=== PATIENT | male | born 1950 | race Caucasian/White ===

== ENCOUNTER 2016-08-03 08:30 | Inpatient (IN) | payer MEDICARE, MEDICAID ==
[2016-08-03 08:46] VITALS: BP 174/90
[2016-08-03] MEDS ORDERED: Sodium Chloride 0.9% 1,000 ML IV ONE (08:47)
[2016-08-03] MEDS ORDERED: HYDROmorphone 1 mg/mL 1mL Syr IVP STA ×2 (08:47→13:57)
[2016-08-03] MEDS ORDERED: HYDROmorphone 1 mg/mL 1mL Syr ONE ×2 (08:56→14:01)
--- NOTE | 2016-08-03 08:56 | ED Physician Chart ---
Chief Complaint/HPI - Patient Information Date Seen:: 08/03/16 Time Seen:: 08:49 Chief Complaint:: fall History of Present Illness:: pt from [facility]. pt of Dr Rueda says he felt dizzy today then fell on his left side. abraided left elbow and l side of scalp. recalls no cp nor palpitations. is worried he may have reinjured his left hip which was replaced in past. asks for pain med...says he is on norco chronically for his hip but "its not strong enough anymore anyways" denies cp or abd p nor acute back injury. no recent illness. no sudden neuro change/defecit. Allergies:: Allergies Allergy/AdvReac Type Severity Reaction Status Date / Time No Known Allergies Allergy Verified 05/18/16 23:28 Vitals:: Vital Signs - 8 hr 08/03/16 08:43 BP 174/90 Historian:: Patient Review:: Transfer documents Reviewed Review of Systems - Review of Systems General/Constitutional: No fever, No chills, No weight loss, No weakness, No diaphoresis, No edema, No loss of appetite Skin: No skin lesions, No rash, No bruising Head: Headache, No light-headedness Eyes: No loss of vision, No pain, No diplopia ENT: No earache, No nasal drainage, No sore throat, No tinnitus Neck: No neck pain, No swelling, No thyromegaly, No stiffness, No mass noted Cardio Vascular: No chest pain, No palpitations, No PND, No orthopnea, No edema Pulmonary: No SOB, No cough, No sputum, No wheezing GI: No nausea, No vomiting, No diarrhea, No pain, No melena, No hematochezia, No constipation, No hematemesis G/U: No dysuria, No frequency, No hematuria Musculoskeletal: Bone or joint pain, No back pain, No muscle pain Endocrine: No polyuria, No polydipsia Psychiatric: No prior psych history, No depression, No anxiety, No suicidal ideation Hematopoietic: No bruising, No lymphadenopathy Allergic/Immuno: No urticaria, No angioedema Neurological: No syncope, No focal symptoms, No weakness, No paresthesia, No headache, No seizure, No dizziness, No confusion, No vertigo Past Medical History - Past Medical History Past Medical History: HTN (pt says he did take his bp med today), Asthma/COPD, PUD/GERD, Arthritis (osteoporosis), Other (hep c, esrd, anemia) Social History: Care Facility Medication: Reviewed Family Medical History - Family Member Mother History Unknown: Yes Ethnicity: Non- Living Status: Hx Family Cancer: Yes (breast cancer) Hx Family Coronary Artery Disease: Yes Hx Family Congestive Heart Failure: Yes Hx Family Hypertension: Yes Hx Family Stroke: No Hx Family Diabetes: No Hx Family Seizures: No Hx Family Dementia: No Hx Family AIDS: No Hx Family HIV: No Hx Family COPD: No Hx Family Hepatitis: No Hx Family Psychiatric Problems: Yes (Schizophenic) Hx Family Tuberculosis: No unknown History Unknown: Yes Ethnicity: Living Status: Hx Family Cancer: No Hx Family Coronary Artery Disease: No Hx Family Congestive Heart Failure: No Hx Family Hypertension: Yes Hx Family Stroke: No Hx Family Diabetes: No Hx Family Seizures: No Hx Family Dementia: No Hx Family AIDS: No Hx Family HIV: No Hx Family COPD: No Hx Family Hepatitis: No Hx Family Psychiatric Problems: No Hx Family Tuberculosis: No Physical Exam - Physical Examination General/Constitutional: Awake, Well-developed, well-nourished, Alert, No distress, GCS 15, Non-toxic appearing, Ambulatory Other Gen/Cons comments:: neck nontndr, ok rom without pain. abrasion at left scalp. cn 2-12 wnl. abrasion left elbow w good rom. no focal severely tndr spot. no effusion. distal nv ok. left hip tender laterally. distal n/v ok. Head: Atraumatic Eyes: Lids, conjuctiva normal, PERRL, EOMI Skin: Nl inspection, No rash, No skin lesions, No ecchymosis, Well hydrated, No lymphadenopathy ENMT: External ears, nose nl, Nasal exam nl, Lips, teeth, gums nl Neck: Nontender, Full ROM w/o pain, No JVD, No nuchal rigidity, No bruit, No mass, No stridor Respiratory: Nl effort/Exclusion, Clear to Auscultation, No Wheeze/Rhonchi/Rales Cardio Vascular: RRR, No murmur, gallop, rubs, NL S1 S2 GI: No tenderness/rebounding/guarding, No organomegaly, No hernia, Normal BS's, Nondistended, No mass/bruits, No McBurney tenderness : No CVA tenderness Extremities: No tenderness or effusion, Full ROM, normal strength in all extremities, No edema, Normal digits & nails Neuro/Psych: Alert/oriented, DTR's symmetric, Normal sensory exam, Normal motor strength, Judgement/insight normal, Mood normal, Normal gait, No focal deficits Misc: normal gait, Normal back, No paraspinal tenderness Labs/Radiology/EKG Results - Lab Results Results: Laboratory Tests 08/03/16 08/03/16 08/03/16 09:19 09:19 09:19 WBC 3.0 L D RBC 4.03 Hgb 12.4 L Hct 36.3 L MCV 90.2 MCH 30.9 MCHC Differential 34.2 RDW 13.4 Plt Count 43 L MPV 7.7 Neutrophils (Manual) 61 Lymphocytes 26 Monocytes 10 Eosinophils 2 Atypical Lymphocytes 1 Platelet Estimate DECREASED PLATELETS Platelet Morphology NORMAL RBC Morph Micro Appear NORMAL PT 11.9 H INR 1.19 PTT (Actin FS) 31.6 Sodium 123 L Potassium 4.1 Chloride 95 L Carbon Dioxide 25.6 Anion Gap 6.5 L BUN 9 Creatinine 0.6 L Est GFR ( Amer) > 60.0 Est GFR (Non-Af Amer) > 60.0 BUN/Creatinine Ratio 15.0 Glucose 143 H Calcium 9.0 Total Bilirubin 0.8 AST 87 H ALT 59 H Alkaline Phosphatase 148 H Ammonia Creatine Kinase 75 Troponin I Total Protein 6.7 Albumin 3.4 L Globulin 3.3 Albumin/Globulin Ratio 1.0 08/03/16 08/03/16 09:19 09:19 WBC RBC Hgb Hct MCV MCH MCHC Differential RDW Plt Count MPV Neutrophils (Manual) Lymphocytes Monocytes Eosinophils Atypical Lymphocytes Platelet Estimate Platelet Morphology RBC Morph Micro Appear PT INR PTT (Actin FS) Sodium Potassium Chloride Carbon Dioxide Anion Gap BUN Creatinine Est GFR ( Amer) Est GFR (Non-Af Amer) BUN/Creatinine Ratio Glucose Calcium Total Bilirubin AST ALT Alkaline Phosphatase Ammonia 48 Creatine Kinase Troponin I 0.01 Total Protein Albumin Globulin Albumin/Globulin Ratio - Radiology Results Results: ct head - no acute bleed. age indeterminate nasal and rt zygoma arch fxs l elbow xray- old hardware inplace. no acute fx l hip- old wire broken w prior seen greater trochanteric avulsion. no new injury. - EKG Interpretations EKG Time:: 09:30 Rhythm: nsr [place]: 61 Rate: 83 Comments:: wnl ED Septic Shock - . Is Septic Shock (SBP<90, OR Lactate>4 mmol\\L) present?: No - <6hrs of presentation: Vital Signs: Vital Signs - 8 hr 08/03/16 08:43 BP 174/90 Reassessment (Disposition) - Reassessment Reassessment:: case dw Dr Rueda will admit (2;38p) Reassessment Condition:: Improved - Diagnosis Diagnosis:: 1 pain s/p fall 2 age indeterminate nasal and rt zygoma arch fxs 3 left hip pain - old wire broken w prior seen greater trochanteric avulsion. no new injury. 4 HTN poorly txd 5 severe low platelets - Patient Disposition Admitted to:: Telemetry Condition at Disposition:: Improved
[2016-08-03 09:31] LABS: HEMATOCRIT 36.3 % (39.0-49.0); HEMOGLOBIN 12.4 gm/dL (12.6-17.4); MEAN CELL VOLUME 90.2 fl (80-99); MEAN CORPUSCULAR HEMOGLOBIN 30.9 pg (27.0-31.0); MEAN CORPUSCULAR HGB CONC 34.2 pg (28.0-36.0); MEAN PLATELET VOLUME 7.7 fl; PLATELET COUNT 43 Th/cmm (150-400); RED BLOOD COUNT 4.03 Mil/cmm (3.80-5.80); RED CELL DISTRIBUTION WIDTH 13.4 % (11.5-20.0)
[2016-08-03 09:38] LABS: INR 1.19 (0.5-1.4); PROTHROMBIN TIME (TEST) 11.9 SECONDS (9.5-11.5)
[2016-08-03 09:41] LABS: ALKALINE PHOSPHATASE 148 U/L (34-104); ANION GAP 6.5 (7.0-16.0); BILIRUBIN,TOTAL 0.8 mg/dL (0.3-1.0); BUN - UREA NITROGEN 9 mg/dL (7-25); CARBON DIOXIDE 25.6 mEq/L (21.0-31.0); CHLORIDE 95 mEq/L (98-107); CREATININE - SERUM 0.6 mg/dL (0.7-1.3); GLUCOSE 143 mg/dL (70-105); POTASSIUM SERUM 4.1 mEq/L (3.5-5.1); SGOT 87 U/L (13-39); SGPT/ALT 59 U/L (7-52); SODIUM SERUM 123 mEq/L (136-145)
[2016-08-03 10:54] LABS: EOSINOPHIL 2 % (0-5); NEUTROPHILS 61 % (40-80); PLATELET ESTIMATE DECREASED PLATELETS (NORMAL); PLATELET MORPHOLOGY NORMAL (NORMAL); TOTAL CELLS COUNTED 100
--- NOTE | 2016-08-03 11:30 | Diagnostic Imaging Report ---
Head CT without intravenous contrast Indication: Fall Comparison: None Technique: Axial images were obtained from the vertex to the skull base without IV contrast. Coronal reconstructions were made. Total DLP: 681, CTDI 33.9 FINDINGS: Images of the brain obtained without contrast demonstrate no evidence of an acute hemorrhage. Atrophy is noted. Dilated Virchow-Lucio space versus old left basal ganglial lacunar infarct is noted. Mild chronic periventricular microvessel ischemic changes are noted. The ventricles and basal cisterns are patent. No mass effect or midline shift. Left parietal scalp soft tissue swelling is noted. Age indeterminate but likely chronic nasal fractures and right zygomatic arch fractures are noted. Atherosclerosis is noted. IMPRESSION: No evidence of an acute intracranial hemorrhage. Atrophy Dilated Virchow Lucio space versus old infarct of the left basal ganglia Left parietal scalp soft tissue swelling. No skull fracture identified. Age indeterminate, but likely chronic nasal fractures and right zygomatic arch fracture.
--- NOTE | 2016-08-03 12:23 | Diagnostic Imaging Report ---
Left elbow 2 views Indication: Trauma Comparison: none Findings: 2 side plates and screws are seen fixating humeral condyle fractures. No evidence of hardware loosening. Mild degenerative changes are noted. No gross joint effusion identified. Osteopenia is noted. Impression: Evidence of fracture fixation previous distal humeral fractures. No evidence of hardware loosening. No obvious gross acute fractures identified. No evidence of a joint effusion. Please correlate with clinical findings. In the setting of trauma, if clinical symptoms persist and there is continued concern for an occult fracture, follow up exams in 5-7 days are recommended.
--- NOTE | 2016-08-03 12:25 | Diagnostic Imaging Report ---
Pelvis and left hip 2 views Indication: Trauma Comparison: Pelvis CT on 06/16/2016 Findings: Mild degenerative changes of bilateral hip joints are noted. There is evidence of cerclage fixation of previous displaced left greater trochanteric fracture without evidence of significant change. No evidence of an acute fracture or dislocation. The SI joints are preserved. Impression: Redemonstration of cerclage fixation of displaced left greater trochanteric fracture without change in alignment. Otherwise no acute fracture is identified. In the setting of trauma, if clinical symptoms persist and there is continued concern for an occult fracture, follow up exams in 5-7 days is suggested.
[2016-08-03] MEDS ORDERED: Pneumococcal Vaccine 0.5 mL Vial IM ONE (18:23)
[2016-08-03] MEDS ORDERED: Magnesium Hydroxide (MOM) 30 mL UDC PO PRN (18:29)
[2016-08-03] MEDS ORDERED: ALUMINUM HYDROXIDE PO PRN (18:29)
[2016-08-03] MEDS ORDERED: [UNRECOGNIZED DRUG - OTHER] PO PRN (18:29)
[2016-08-03] MEDS ORDERED: Maalox 30 mL Cup PO PRN (18:55)
[2016-08-03] MEDS: HYDROmorphone 2 mg/mL 1mL Vial IVP PRN ×2 (18:57→23:05)
[2016-08-03] MEDS: Lactulose 10 Gm/15 mL 30mL UDC PO SCH (21:32)
[2016-08-04] MEDS: HYDROmorphone 2 mg/mL 1mL Vial IVP PRN ×5 (03:37→21:46)
--- NOTE | 2016-08-04 07:10 | Admit Criteria Form ---
Admit Criteria Forms - Admit Criteria Diagnosis: MUSCULOSKELETAL DISEASE [facility] Clinical Indications for Admission to Inpatient Care (Place 'X' for any and all applicable criteria): Hospital admission is needed for appropriate care of the patient because of ANY ONE of the following: [X ]I. Fracture, dislocation, or other musculoskeletal injury requiring inpatient care(medical) as indicated by ANY ONE of the following(4)(5)(6)(7) [ ]a) Vertebral fracture requiring observation for instability or neurologic compromise (8) [ ]b) Compartment syndrome (proven or cannot be ruled out during observation level of care) (9) [ ]c) Limb-threatening injury [ ]d) Major injury requiring inpatient stabilization such as traction initiation or external fixation before internal fixation or closure of complex or open fracture [X ]e) Major injury requiring inpatient treatment after emergency or observation level care (as appropriate) [ ]f) Severe pain requiring acute inpatient management [ ]II. Newly diagnosed or suspected bone, joint, or orthopedic device infection (e.g., osteomyelitis, septic arthritis) needing ANY ONE of the following(1)(2)(3) [ ]a) IV antibiotics that cannot be initiated in other than inpatient setting (e.g., patient too unstable or home infusion not available) [ ]b) Device removal or replacement [ ]c) Bone or soft tissue debridement [ ]d) Joint drainage (drain placement or repetitive aspirations) [ ]III. Severe rheumatologic disease (e.g., systemic lupus erythematosus, rheumatoid arthritis) with complications or comorbidities (Also use Optimal Recovery Care Criteria or General Recovery Criteria as appropriate on the basis of predominant condition), including ANY ONE of the following(10 )(11)(12)(13) [ ]a) Severe infection (e.g., STRIKER OUT infection, sepsis) (14) [ ]b) Respiratory complications, including ANY ONE of the following: [ ]i) Pleural effusion with respiratory compromise [ ]ii) Pulmonary hypertension with congestive failure [ ]iii) Respiratory failure [ ]iv) Pulmonary hemorrhage (15) [ ]c) Hematologic disease, including ANY ONE of the following: [ ]i) Coagulopathy with bleeding [ ]ii) Thrombosis with hypercoagulable state [ ]iii) Thrombotic thrombocytopenic purpura [ ]d) Cerebritis with seizures, psychosis, or other severe abnormalities [ ]e) Vertebral destruction with monitoring needed for cervical myelopathy& possible respiratory compromise [ ]f) Exacerbation that requires inpatient treatment (e.g., intravenous immunosuppression) (16) [ ]g) Acute renal failure [ ]IV. Severe vasculitis with complications or comorbidities (Also use Optimal Recovery Care Criteria or General Recovery Criteria as appropriate on the basis of predominant condition), including ANY ONE of the following(11)(12)(17)(18)(19)(20) [ ]a) STRIKER OUT vasculitis with seizures, psychosis, or other severe abnormalities (22) [ ]b) Renal failure (16) [ ]c) Pulmonary hemorrhage (15) [ ]d) Cerebral infarction [ ]e) Gastrointestinal ischemia [ ]f) Gangrene or threatened amputation [ ]g) Exacerbation that requires inpatient treatment (e.g., intravenous immunosuppression) (19)(21) [ ]V. Severe myopathy as indicated by ANY ONE of the following (28)(29) [ ]a) New onset of airway compromise or inability to swallow [ ]b) Respiratory deterioration with observation needed for impending respiratory failure [ ]c) Exacerbation that requires inpatient treatment (e.g., intravenous immunosuppression) [ ]. Severe gout (crystal arthropathy) as indicated by ANY ONE of the following (23)(24) [ ]a) Severe pain requiring acute inpatient management [ ]b) Exacerbation that requires inpatient treatment (e.g., intravenous treatment) [ ]VII.Rhabdomyolysis and ANY ONE of the following (25)(26)(27) [ ]a) Acute renal failure [ ]b) Need for intravenous hydration after emergency or observation level care (as appropriate) [ ]c) Inability to maintain oral hydration [ ]d) Change in mental status [ ]e) Electrolyte abnormality that remains after emergency or observation level care (as appropriate) [ ]VIII Post amputation complication, as indicated by ANY ONE of the following [ ]a) Infection [ ]b) Dehiscence [ ]c) Myodesis failure [ ]IX. Severe pain requiring acute inpatient management as indicated by ALL of the following (30)(31)(32) [ ]a) Continuous or frequent (e.g., every 2 to 4 hrs) parenteral analgesics required [A] [ ]b) Rapid improvement expected from treatment or acute intervention ( e.g., surgery, anesthesia procedure[B] [ ]X. Musculoskeletal Disease and ALL of the following: [ ]a) Symptom or finding for which emergency and observation care have failed or are not considered appropriate (Use General Criteria: Observation Care as appropriate) [ ]b) Presence of ANY ONE of the following [ ]i) A General Admission Criteria [ ]ii) A Pediatric General Admission Criteria The original [facility] content created by [facility] has been revised. The portions of the content which have been revised are identified through the use of italic text or in bold, and [facility] has neither reviewed nor approved the modified material. All other unmodified content is copyright [facility]. Please see references footnoted in the original [facility] edition 2016 Admit Criteria Met?: Yes
[2016-08-04] MEDS: Pantoprazole 40 mg EC Tab PO SCH (08:18)
[2016-08-04] MEDS: Ferrous Sulfate 325 MG TAB PO SCH (08:18)
[2016-08-04] MEDS: Aspirin 81mg Chewable Tab PO SCH (08:19)
[2016-08-04] MEDS: Multivitamin Tab PO SCH (08:19)
[2016-08-04] MEDS: Lactulose 10 Gm/15 mL 30mL UDC PO SCH ×4 (08:20→21:42)
[2016-08-04] MEDS: Benztropine 1 MG TAB PO SCH ×2 (08:20→16:38)
[2016-08-04] MEDS ORDERED: Non-Formulary Item 1 EA (Esomeprazole Magnesium [Nexium] 40 MG) PO SCH (09:00)
--- NOTE | 2016-08-04 15:25 | Diagnostic Imaging Report ---
CT scan of the pelvis without intravenous contrast HISTORY: Fracture Total DLP equals 539 CTDI equals 15.0 Axial sections were obtained from a level above the iliac crest down to level below the pubic symphysis. There is narrowing of the hip joints bilaterally. Surgical changes associated with old fracture of the greater trochanter noted. No change from the prior exam of 06/16/2016. No acute fractures are seen. Atherosclerotic calcification noted in the lower abdominal aorta and iliac vessels. No abnormal soft tissue masses or fluid collections seen within the pelvis. IMPRESSION: 1. No acute abnormalities 2. Surgical changes associated with an old fracture of the left greater trochanter 3. Atherosclerotic vascular changes 4. Degenerative changes in the spine along with spondylolisthesis and spondylolysis L5-S1
[2016-08-04] MEDS: Hydrocodone/APAP 5mg/325mg Tab PO PRN (20:18)
--- NOTE | 2016-08-05 00:04 | History & Physical ---
HISTORY OF PRESENT ILLNESS: The patient was admitted on 08/03/2016 for increasing dizziness, history of fall on the left side, history of head trauma, history of left hip trauma, complaining of the pain. He had a history of replaced hip in the past. The patient was admitted and also complaining of cough and expectoration and loss of voice. The patient denies any chest pain, abdominal pain, or back injury. On examination, no fever, no chills, no rigors, no headache, no other problems except left hip pain, left-sided pain and history of fall, and history of syncope. PAST MEDICAL HISTORY: History of hypertension, asthma, peptic ulcer disease, COPD, arthritis, history of hepatitis C, and chronic kidney disease. PHYSICAL EXAMINATION: GENERAL: Alert and oriented, elderly male patient. HEAD: Normal. ENT: Normal. NECK: Supple and nontender. LUNGS: Clear. CARDIOVASCULAR: S1 and S2 heard. ABDOMEN: Soft. Bowel sounds are heard. 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 Range of motion was negative. The patient had a CAT scan, which dual hardware and hip wire was broken. DIAGNOSES: 1. History of fall, dizziness, rule out cardiac arrhythmia. 2. History of nasal and right zygomatic arch fracture. 3. History of left hip pain. 4. History of hypertension, poorly controlled, severe. 5. Low platelets. 6. Thrombocytopenia. 7. History of laryngitis, bronchitis, and laryngotracheitis. The patient is being admitted. I will go ahead and give him antibiotics. I will have Dr. Justino Chand see the patient, and I will follow the patient. JOB# [id number]
--- NOTE | 2016-08-05 02:30 | Consultation ---
The patient was seen, chart reviewed and discussed with staff. HISTORY OF PRESENT ILLNESS: The patient is a 65-year-old male with a history of schizoaffective disorder, known to myself from treatment at his facility, reports hearing voices, said he is currently on Haldol and that this medication does not work well for him. Said he did better when he took risperidone. The patient reports some helplessness and anxiety. The patient said he had a fall recently and he is in a lot of pain. PAST PSYCHIATRIC HISTORY: Multiple psychiatric hospitalizations and history of chronic mental illness. PSYCHOSOCIAL HISTORY: The patient resides in [facility] and requires complete care. PAST MEDICAL HISTORY: The patient has one son that is grown up and he has no contact with him. He was originally born in [place]. The patient has a history of extensive drug use including heroin IV. MENTAL STATUS EXAMINATION: The patient is ____, has multiple tattoos. He appears to be older than his stated age. His speech is slightly fast and affect is anxious and somewhat guarded. The patient admits to have auditory hallucinations. He is oriented x 3. He is oriented to person and place and being in the hospital, but not sure about the exact time. ASSESSMENT: Schizoaffective disorder. PLAN: We will continue his Seroquel 50 mg p.o. at bedtime ____ patient said this medication helped him sleep. We will discontinue Haldol for lack of efficacy, use risperidone 1 mg p.o. b.i.d. and increase dose gradually. The patient will benefit from psychiatric hospitalization given his psychosis and severity of his symptoms ____ will follow. Thank you for the consultation. [facility]# [id number]
[2016-08-05] MEDS: HYDROmorphone 2 mg/mL 1mL Vial IVP PRN ×4 (04:37→19:34)
[2016-08-05] MEDS: Multivitamin Tab PO SCH (08:53)
[2016-08-05] MEDS: Pantoprazole 40 mg EC Tab PO SCH (08:53)
[2016-08-05] MEDS: Aspirin 81mg Chewable Tab PO SCH (08:53)
[2016-08-05] MEDS: Ferrous Sulfate 325 MG TAB PO SCH (08:53)
[2016-08-05] MEDS: Benztropine 1 MG TAB PO SCH ×2 (08:54→16:31)
[2016-08-05] MEDS: Lactulose 10 Gm/15 mL 30mL UDC PO SCH ×4 (08:54→20:23)
[2016-08-05 10:13] LABS: HEMATOCRIT 34.9 % (39.0-49.0); MEAN CELL VOLUME 89.7 fl (80-99); MEAN CORPUSCULAR HEMOGLOBIN 30.9 pg (27.0-31.0); MEAN CORPUSCULAR HGB CONC 34.4 pg (28.0-36.0); MEAN PLATELET VOLUME 8.1 fl; PLATELET COUNT 43 Th/cmm (150-400); RED BLOOD COUNT 3.89 Mil/cmm (3.80-5.80); RED CELL DISTRIBUTION WIDTH 13.6 % (11.5-20.0)
[2016-08-05 10:14] LABS: WHITE BLOOD COUNT 4.9 Th/cmm (4.8-10.8)
[2016-08-05 10:33] LABS: ANION GAP 11.4 (7.0-16.0); BUN - UREA NITROGEN 12 mg/dL (7-25); CALCIUM SERUM 9.1 mg/dL (8.6-10.3); CARBON DIOXIDE 24.9 mEq/L (21.0-31.0); CHLORIDE 97 mEq/L (98-107); GLUCOSE 139 mg/dL (70-105); POTASSIUM SERUM 4.3 mEq/L (3.5-5.1); SODIUM SERUM 129 mEq/L (136-145)
[2016-08-05 10:39] LABS: BAND NEUTROPHILE 1 % (0-10); EOSINOPHIL 6 % (0-5); METAMYELOCYTE 1 % (0-0); NEUTROPHILS 54 % (40-80); TOTAL CELLS COUNTED 100
[2016-08-05 10:40] LABS: PLATELET ESTIMATE DECREASED PLATELETS (NORMAL); PLATELET MORPHOLOGY NORMAL (NORMAL)
--- NOTE | 2016-08-05 12:59 | General Progress Note ---
Subjective - Review of Systems Service Date: 08/05/16 Subjective: awake, with slight confusion nad Objective - Results Result Diagrams: 08/05/16 09:40 08/05/16 09:40 Recent Labs: Laboratory Last Values WBC 4.9 Th/cmm (4.8-10.8) D 08/05/16 09:40 RBC 3.89 Mil/cmm (3.80-5.80) 08/05/16 09:40 Hgb 12.0 gm/dL (12.6-17.4) L 08/05/16 09:40 Hct 34.9 % (39.0-49.0) L 08/05/16 09:40 MCV 89.7 fl (80-99) 08/05/16 09:40 MCH 30.9 pg (27.0-31.0) 08/05/16 09:40 MCHC Differential 34.4 pg (28.0-36.0) 08/05/16 09:40 RDW 13.6 % (11.5-20.0) 08/05/16 09:40 Plt Count 43 Th/cmm (150-400) L 08/05/16 09:40 MPV 8.1 fl 08/05/16 09:40 Band Neutrophils % 1 % (0-10) 08/05/16 09:40 Neutrophils (Manual) 54 % (40-80) 08/05/16 09:40 Lymphocytes 25 % (20-50) 08/05/16 09:40 Monocytes 11 % (2-10) H 08/05/16 09:40 Eosinophils 6 % (0-5) H 08/05/16 09:40 Metamyelocytes 1 % (0-0) H 08/05/16 09:40 Atypical Lymphocytes 2 % 08/05/16 09:40 Platelet Estimate DECREASED PLATELETS (NORMAL) 08/05/16 09:40 Platelet Morphology NORMAL (NORMAL) 08/05/16 09:40 RBC Morph Micro Appear NORMAL (NORMAL) 08/05/16 09:40 PT 11.9 SECONDS (9.5-11.5) H 08/03/16 09:19 INR 1.19 (0.5-1.4) 08/03/16 09:19 PTT (Actin FS) 31.6 SECONDS (26.0-38.0) 08/03/16 09:19 Sodium 129 mEq/L (136-145) L 08/05/16 09:40 Potassium 4.3 mEq/L (3.5-5.1) 08/05/16 09:40 Chloride 97 mEq/L (98-107) L 08/05/16 09:40 Carbon Dioxide 24.9 mEq/L (21.0-31.0) 08/05/16 09:40 Anion Gap 11.4 (7.0-16.0) 08/05/16 09:40 BUN 12 mg/dL (7-25) 08/05/16 09:40 Creatinine 1.0 mg/dL (0.7-1.3) 08/05/16 09:40 Est GFR ( Amer) > 60.0 ml/min (>90) 08/05/16 09:40 Est GFR (Non-Af Amer) > 60.0 ml/min 08/05/16 09:40 BUN/Creatinine Ratio 12.0 08/05/16 09:40 Glucose 139 mg/dL (70-105) H 08/05/16 09:40 Calcium 9.1 mg/dL (8.6-10.3) 08/05/16 09:40 Total Bilirubin 0.8 mg/dL (0.3-1.0) 08/03/16 09:19 AST 87 U/L (13-39) H 08/03/16 09:19 ALT 59 U/L (7-52) H 08/03/16 09:19 Alkaline Phosphatase 148 U/L (34-104) H 08/03/16 09:19 Ammonia 48 umol/L (16-53) 08/03/16 09:19 Creatine Kinase 75 U/L (30-223) 08/03/16 09:19 Troponin I 0.01 ng/mL (0.01-0.05) 08/03/16 09:19 Total Protein 6.7 gm/dL (6.0-8.3) 08/03/16 09:19 Albumin 3.4 gm/dL (4.2-5.5) L 08/03/16 09:19 Globulin 3.3 gm/dL 08/03/16 09:19 Albumin/Globulin Ratio 1.0 (1.0-1.8) 08/03/16 09:19 Blood Type O NEGATIVE 08/03/16 14:40 Antibody Screen NEGATIVE 08/03/16 14:40 - Physical Exam Vitals and I&O: Vital Signs Temp 98.7 F 08/05/16 04:00 Pulse 98 08/05/16 08:53 Resp 18 08/05/16 08:00 BP 128/70 08/05/16 08:53 Pulse Ox 95 08/05/16 04:00 Intake & Output 08/04/16 08/05/16 08/05/16 18:59 06:59 18:59 Intake Total 150 Output Total 1 Balance 149 Intake: Oral 150 Output: Stool 1 Other: # Voids 1 Stool Characteristics Soft Formed Brown Active Medications: Current Medications Acetaminophen (Tylenol) 650 mg PO Q4HR PRN PRN Reason: pain and fever Stop: 10/02/16 18:28 Acetaminophen/Hydrocodone Bitart ([place] 5mg/325mg) 1 tab PO Q8H PRN PRN Reason: Pain (Moderate) Stop: 10/02/16 18:28 Last Admin: 08/04/16 20:18 Dose: 1 tab Al Hydrox/Mg Hydrox/Simethicone (Maalox) 30 ml PO Q4HR PRN PRN Reason: GI DISTRESS Stop: 10/02/16 18:54 Amitriptyline HCl (Elavil) 50 mg PO HS [facility] PRN Reason: Protocol Stop: 10/02/16 20:59 Last Admin: 08/04/16 21:40 Dose: 50 mg Aspirin (Aspirin Chewable) 81 mg PO DAILY [facility] Stop: 10/03/16 08:59 Last Admin: 08/05/16 08:53 Dose: 81 mg Benztropine Mesylate (Cogentin) 1 mg PO BID [facility] Stop: 10/03/16 08:59 Last Admin: 08/05/16 08:54 Dose: 1 mg Clonidine HCl (Catapres) 0.1 mg PO Q6HR PRN PRN Reason: BP MAINTENANCE (PER PROTOCOL) Stop: 10/02/16 18:28 Ferrous Sulfate (Iron) 325 mg PO DAILY [facility] Stop: 10/03/16 08:59 Last Admin: 08/05/16 08:53 Dose: 325 mg Hydromorphone HCl (Dilaudid) 2 mg IVP Q4HR PRN PRN Reason: Pain (Severe) Stop: 10/02/16 18:41 Last Admin: 08/05/16 08:52 Dose: 2 mg Lactulose (Cephulac) 30 gm PO QID [facility] Stop: 10/02/16 20:59 Last Admin: 08/05/16 08:54 Dose: 30 gm Lisinopril (Zestril) 20 mg PO DAILY [facility] Stop: 10/03/16 08:59 Last Admin: 08/05/16 08:53 Dose: 20 mg Lorazepam (Ativan) 1 mg PO Q6H PRN; Protocol PRN Reason: Anxiety Stop: 10/02/16 18:28 Magnesium Hydroxide (Milk Of Magnesia) 30 ml PO HS PRN PRN Reason: Constipation Stop: 10/02/16 18:28 Metoclopramide HCl (Reglan) 10 mg PO Q6H PRN PRN Reason: Nausea Stop: 10/02/16 18:28 Multivitamins/Vitamin C (Theragran) 1 tab PO DAILY [facility] Stop: 10/03/16 08:59 Last Admin: 08/05/16 08:53 Dose: 1 tab Naproxen (Naprosyn) 500 mg PO Q12H PRN PRN Reason: Pain Stop: 10/02/16 18:28 Ondansetron HCl (Zofran) 4 mg IV Q6H PRN PRN Reason: Nausea / Vomiting Stop: 10/02/16 18:42 Pantoprazole Sodium (Protonix) 40 mg PO DAILY [facility] Stop: 10/03/16 08:59 Last Admin: 08/05/16 08:53 Dose: 40 mg Quetiapine Fumarate (Seroquel) 50 mg PO HS [facility] PRN Reason: Protocol Stop: 10/02/16 20:59 Last Admin: 08/04/16 21:41 Dose: 50 mg Risperidone (Risperdal) 1 mg PO BID [facility] PRN Reason: Protocol Stop: 10/03/16 16:59 Last Admin: 08/04/16 16:38 Dose: 1 mg Temazepam (Restoril) 15 mg PO HS PRN; Protocol PRN Reason: Insomnia Stop: 10/02/16 18:28 Last Admin: 08/04/16 21:40 Dose: 15 mg General: Cooperative HEENT: Atraumatic Neck: Supple Cardiovascular: Regular rate Lungs: Normal air movement Abdomen: Bowel sounds Assessment/Plan - Problem List Patient Problems: All Active Problems Acute exacerbation of chronic obstructive pulmonary disease (COPD) (Acute) J44.1 H/O chronic hepatitis (Acute) Z87.19 Hepatic encephalopathy (Acute) K72.90 Pneumonia, organism unspecified (Acute) J18.9 S/P FALLL...POSS. HIP FX (Acute) - Plan Plan: fall precautions supplemental o2 follow up labs ivabx cpm
--- NOTE | 2016-08-05 14:45 | Consultation ---
Consult Note - Consult Note Service Date: 08/05/16 Referring Physician: Lisette Nair Consult Note: PHYSICIAN Consultation Note: Date of Admission: 08/03/16 Purpose of Consultation: Pharyngitis. Chief Complaint: hoarseness of voice. History of Present Illness: Patient CARLOS EDUARDO ZUNIGA was [facility] Telemetry with (L)HIP PAIN R/O OCCULT FRACTURE, THROMBOCYTOPENIA. 65 y male with history of HTN, CKD, COPD, Asthma, osteoarthritis, brought from the SNF for Left hip pain,. He denied any fevers. He also c/o sore throat and hoarseness of voice. CT pelvis showed surgical changes associated with old femoral fracture. On initial evaluation his temperature was 97.7 degree F and WBC Count was 3,000. ID consult was called for further management. Diagnoses THROMBOCYTOPENIA, UNSPECIFIED (08/03/16) ESSENTIAL (PRIMARY) HYPERTENSION (08/03/16) HYPERTENSIVE CHRONIC KIDNEY DISEASE W STG 1-4/UNSP CHR KDNY (08/03/16) CHRONIC OBSTRUCTIVE PULMONARY DISEASE, UNSPECIFIED (08/03/16) UNSPECIFIED ASTHMA, UNCOMPLICATED (08/03/16) UNSPECIFIED OSTEOARTHRITIS, UNSPECIFIED SITE (08/03/16) CHRONIC KIDNEY DISEASE, UNSPECIFIED (08/03/16) DIZZINESS AND GIDDINESS (08/03/16) AUDITORY HALLUCINATIONS (08/03/16) Allergies Allergy/AdvReac Type Severity Reaction Status Date / Time No Known Allergies Allergy Verified 05/18/16 23:28 Vital Signs Temp 98.7 F 08/05/16 04:00 Pulse 98 08/05/16 08:53 Resp 18 08/05/16 08:00 BP 128/70 08/05/16 08:53 Pulse Ox 95 08/05/16 04:00 Intake & Output 08/04/16 08/05/16 08/05/16 18:59 06:59 18:59 Intake Total 150 Output Total 1 Balance 149 Intake: Oral 150 Output: Stool 1 Other: # Voids 1 Stool Characteristics Soft Formed Brown Laboratory Results - last 24 hr 08/05/16 08/05/16 09:40 09:40 WBC 4.9 D RBC 3.89 Hgb 12.0 L Hct 34.9 L MCV 89.7 MCH 30.9 MCHC Differential 34.4 RDW 13.6 Plt Count 43 L MPV 8.1 Band Neutrophils % 1 Neutrophils (Manual) 54 Lymphocytes 25 Monocytes 11 H Eosinophils 6 H Metamyelocytes 1 H Atypical Lymphocytes 2 Platelet Estimate DECREASED PLATELETS Platelet Morphology NORMAL RBC Morph Micro Appear NORMAL Sodium 129 L Potassium 4.3 Chloride 97 L Carbon Dioxide 24.9 Anion Gap 11.4 BUN 12 Creatinine 1.0 Est GFR ( Amer) > 60.0 Est GFR (Non-Af Amer) > 60.0 BUN/Creatinine Ratio 12.0 Glucose 139 H Calcium 9.1 Home Medication Medication Instructions Recorded Type Acetaminophen [Tylenol] 650 mg PO Q4HR PRN 10/24/14 History Aluminum Hydroxide/Magnesium1 30 ml PO Q4HR PRN 10/24/14 History [Mylanta 355 ml] Lorazepam [Ativan] 1 mg PO Q6H PRN 10/24/14 History Naproxen [Naprosyn] 500 mg PO Q12H PRN 10/24/14 History Aspirin [Aspirin Chewable] 81 mg PO DAILY 05/18/16 History Clonidine HCl [Catapres] 0.1 mg PO Q6HR PRN 05/18/16 History Ferrous Sulfate [Iron] 325 mg PO DAILY 05/18/16 History Hydrocodone/APAP 5mg/325mg [[place] 1 tab PO Q8H PRN 05/18/16 History 5mg/325mg] Lactulose 30 gm PO QID 05/18/16 History Lisinopril 20 mg PO DAILY 05/18/16 History Multivitamin [Theragran] 1 tab PO DAILY 05/18/16 History Temazepam [Restoril*] 15 mg PO HS PRN 05/18/16 History Amitriptyline [Elavil*] 50 mg PO HS 06/16/16 History Benztropine [Cogentin*] 1 mg PO BID 06/16/16 History Esomeprazole Magnesium [Nexium] 40 mg PO DAILY 06/16/16 History Haloperidol [Haldol*] 5 mg PO TID 06/16/16 History Magnesium Hydroxide [Milk of 30 ml PO HS PRN 06/16/16 History Magnesia] Metoclopramide [Reglan] 10 mg PO Q6H PRN 06/16/16 History QUEtiapine Fumarate [SEROquel] 50 mg PO HS 06/16/16 History Current Medications Generic Name Dose Route Start Last Admin Trade Name Freq PRN Reason Stop Dose Admin Acetaminophen 650 mg 08/03/16 18:29 Tylenol PO 10/02/16 18:28 Q4HR PRN pain and fever Acetaminophen/Hydrocodone Bitart 1 tab 08/03/16 18:29 08/04/16 20:18 [place] 5mg/325mg PO 10/02/16 18:28 1 tab Q8H PRN Administration Pain (Moderate) Al Hydrox/Mg Hydrox/Simethicone 30 ml 08/03/16 18:55 Maalox PO 10/02/16 18:54 Q4HR PRN GI DISTRESS Amitriptyline HCl 50 mg 08/03/16 21:00 08/04/16 21:40 Elavil PO 10/02/16 20:59 50 mg HS [facility] Administration Protocol Aspirin 81 mg 08/04/16 09:00 08/05/16 08:53 Aspirin Chewable PO 10/03/16 08:59 81 mg DAILY [facility] Administration Benztropine Mesylate 1 mg 08/04/16 09:00 08/05/16 08:54 Cogentin PO 10/03/16 08:59 1 mg BID [facility] Administration Clonidine HCl 0.1 mg 08/03/16 18:29 Catapres PO 10/02/16 18:28 Q6HR PRN BP MAINTENANCE (PER PROTOCOL) Ferrous Sulfate 325 mg 08/04/16 09:00 08/05/16 08:53 Iron PO 10/03/16 08:59 325 mg DAILY [facility] Administration Hydromorphone HCl 2 mg 08/03/16 18:42 08/05/16 08:52 Dilaudid IVP 10/02/16 18:41 2 mg Q4HR PRN Administration Pain (Severe) Lactulose 30 gm 08/03/16 21:00 08/05/16 08:54 Cephulac PO 10/02/16 20:59 30 gm QID [facility] Administration Lisinopril 20 mg 08/04/16 09:00 08/05/16 08:53 Zestril PO 10/03/16 08:59 20 mg DAILY [facility] Administration Lorazepam 1 mg 08/03/16 18:29 Ativan PO 10/02/16 18:28 Q6H PRN Anxiety Protocol Magnesium Hydroxide 30 ml 08/03/16 18:29 Milk Of Magnesia PO 10/02/16 18:28 HS PRN Constipation Metoclopramide HCl 10 mg 08/03/16 18:29 Reglan PO 10/02/16 18:28 Q6H PRN Nausea Multivitamins/Vitamin C 1 tab 08/04/16 09:00 08/05/16 08:53 Theragran PO 10/03/16 08:59 1 tab DAILY [facility] Administration Naproxen 500 mg 08/03/16 18:29 Naprosyn PO 10/02/16 18:28 Q12H PRN Pain Ondansetron HCl 4 mg 08/03/16 18:43 Zofran IV 10/02/16 18:42 Q6H PRN Nausea / Vomiting Pantoprazole Sodium 40 mg 08/04/16 09:00 08/05/16 08:53 Protonix PO 10/03/16 08:59 40 mg DAILY [facility] Administration Quetiapine Fumarate 50 mg 08/03/16 21:00 08/04/16 21:41 Seroquel PO 10/02/16 20:59 50 mg HS [facility] Administration Protocol Risperidone 1 mg 08/04/16 17:00 08/04/16 16:38 Risperdal PO 10/03/16 16:59 1 mg BID [facility] Administration Protocol Temazepam 15 mg 08/03/16 18:29 08/04/16 21:40 Restoril PO 10/02/16 18:28 15 mg HS PRN Administration Insomnia Protocol Review of Systems: GEN: Denies any fever generalized weakness. HEENT: c/o sorethroat and hoarseness of voice. RS: Has cough, denies any SOB. CVS: No chest pains or palpitaions. GI: there is no nausea, vomiting. No abd pain, diarrhea or constipation. : No dysuria, no hematuria. MS: has left hip pains. 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 A 12 point ROS was reviewed with the pertinent positive and negatives noted in the HPI. 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 Physical Exam: General: WN WD, No Acute Distress. HEENT: EOMI Bilaterally, PERRLA Bilaterally, Head is normocephalic, atraumatic on inspection. Oral cavity moist with oropharynx shows some patches, no wrythema or membrane. Cardio: +S1/S2 Auscultated, RRR, no murmurs/rubs/gallops noted Respiratory: Clear to Auscultate Bilaterally Abdominal: Soft, Nondistended, Nontender to palpation x 4 quadrants Extremities: No Edema noted in the lower extremities Neurological: Alert and Oriented x3, Cranial Nerves II-XII intact bilaterally, Gait Steady, No Focal Deficits noted. Assessment/Plan: 1. Pharyngitis. 2. Hyponatremia. 3. CVA. 4. Asthma copd. Recommendations: will start Rocephin , throat culture and rapid strep. IVF NS. If patient does well, will transfer to [facility] tomorrow. Signed, Justino Chand M.D. [id number]
[2016-08-05] MEDS: Sodium Chloride 0.9% 1,000 ML IV SCH (16:32)
[2016-08-05] MEDS ORDERED: cefTRIAXone 1 GM in Sodium Chloride 0.9% 50 ML IV SCH (17:00)
[2016-08-06] MEDS: HYDROmorphone 2 mg/mL 1mL Vial IVP PRN ×5 (04:16→23:13)
--- NOTE | 2016-08-06 04:44 | Infectious Disease Prog Note ---
Infectious Disease Subjective - Review of Systems Service Date: 08/06/16 Subjective: There is no new change, there is no fever. C/o hoarseness of voice. Infectious Disease Objective - Results Result Diagrams: 08/05/16 09:40 08/05/16 09:40 Recent Labs: Laboratory Last Values WBC 4.9 Th/cmm (4.8-10.8) D 08/05/16 09:40 RBC 3.89 Mil/cmm (3.80-5.80) 08/05/16 09:40 Hgb 12.0 gm/dL (12.6-17.4) L 08/05/16 09:40 Hct 34.9 % (39.0-49.0) L 08/05/16 09:40 MCV 89.7 fl (80-99) 08/05/16 09:40 MCH 30.9 pg (27.0-31.0) 08/05/16 09:40 MCHC Differential 34.4 pg (28.0-36.0) 08/05/16 09:40 RDW 13.6 % (11.5-20.0) 08/05/16 09:40 Plt Count 43 Th/cmm (150-400) L 08/05/16 09:40 MPV 8.1 fl 08/05/16 09:40 Band Neutrophils % 1 % (0-10) 08/05/16 09:40 Neutrophils (Manual) 54 % (40-80) 08/05/16 09:40 Lymphocytes 25 % (20-50) 08/05/16 09:40 Monocytes 11 % (2-10) H 08/05/16 09:40 Eosinophils 6 % (0-5) H 08/05/16 09:40 Metamyelocytes 1 % (0-0) H 08/05/16 09:40 Atypical Lymphocytes 2 % 08/05/16 09:40 Platelet Estimate DECREASED PLATELETS (NORMAL) 08/05/16 09:40 Platelet Morphology NORMAL (NORMAL) 08/05/16 09:40 RBC Morph Micro Appear NORMAL (NORMAL) 08/05/16 09:40 PT 11.9 SECONDS (9.5-11.5) H 08/03/16 09:19 INR 1.19 (0.5-1.4) 08/03/16 09:19 PTT (Actin FS) 31.6 SECONDS (26.0-38.0) 08/03/16 09:19 Sodium 129 mEq/L (136-145) L 08/05/16 09:40 Potassium 4.3 mEq/L (3.5-5.1) 08/05/16 09:40 Chloride 97 mEq/L (98-107) L 08/05/16 09:40 Carbon Dioxide 24.9 mEq/L (21.0-31.0) 08/05/16 09:40 Anion Gap 11.4 (7.0-16.0) 08/05/16 09:40 BUN 12 mg/dL (7-25) 08/05/16 09:40 Creatinine 1.0 mg/dL (0.7-1.3) 08/05/16 09:40 Est GFR ( Amer) > 60.0 ml/min (>90) 08/05/16 09:40 Est GFR (Non-Af Amer) > 60.0 ml/min 08/05/16 09:40 BUN/Creatinine Ratio 12.0 08/05/16 09:40 Glucose 139 mg/dL (70-105) H 08/05/16 09:40 Calcium 9.1 mg/dL (8.6-10.3) 08/05/16 09:40 Total Bilirubin 0.8 mg/dL (0.3-1.0) 08/03/16 09:19 AST 87 U/L (13-39) H 08/03/16 09:19 ALT 59 U/L (7-52) H 08/03/16 09:19 Alkaline Phosphatase 148 U/L (34-104) H 08/03/16 09:19 Ammonia 48 umol/L (16-53) 08/03/16 09:19 Creatine Kinase 75 U/L (30-223) 08/03/16 09:19 Troponin I 0.01 ng/mL (0.01-0.05) 08/03/16 09:19 Total Protein 6.7 gm/dL (6.0-8.3) 08/03/16 09:19 Albumin 3.4 gm/dL (4.2-5.5) L 08/03/16 09:19 Globulin 3.3 gm/dL 08/03/16 09:19 Albumin/Globulin Ratio 1.0 (1.0-1.8) 08/03/16 09:19 Blood Type O NEGATIVE 08/03/16 14:40 Antibody Screen NEGATIVE 08/03/16 14:40 - Physical Exam Vitals and I&O: Vital Signs Temp 98.2 F 08/06/16 03:59 Pulse 107 08/06/16 03:59 Resp 17 08/06/16 04:00 BP 129/76 08/06/16 03:59 Pulse Ox 96 08/06/16 03:59 Intake & Output 08/05/16 08/05/16 08/06/16 06:59 18:59 06:59 Intake Total 150 50 200 Output Total 1 1 Balance 149 50 199 Intake: Intake, IV Amount 50 [id number] 1 gm In 50 Sodium Chloride 0.9% 50 ml @ 100 mls/hr IV Q24H [facility] Rx#:[id number] Oral 150 200 Output: Stool 1 1 Other: # Voids 1 3 Stool Characteristics Soft Formed Brown Active Medications: Current Medications Acetaminophen (Tylenol) 650 mg PO Q4HR PRN PRN Reason: pain and fever Stop: 10/02/16 18:28 Acetaminophen/Hydrocodone Bitart ([place] 5mg/325mg) 1 tab PO Q8H PRN PRN Reason: Pain (Moderate) Stop: 10/02/16 18:28 Last Admin: 08/04/16 20:18 Dose: 1 tab Al Hydrox/Mg Hydrox/Simethicone (Maalox) 30 ml PO Q4HR PRN PRN Reason: GI DISTRESS Stop: 10/02/16 18:54 Amitriptyline HCl (Elavil) 50 mg PO HS [facility] PRN Reason: Protocol Stop: 10/02/16 20:59 Last Admin: 08/05/16 20:22 Dose: 50 mg Aspirin (Aspirin Chewable) 81 mg PO DAILY [facility] Stop: 10/03/16 08:59 Last Admin: 08/05/16 08:53 Dose: 81 mg Benztropine Mesylate (Cogentin) 1 mg PO BID [facility] Stop: 10/03/16 08:59 Last Admin: 08/05/16 16:31 Dose: 1 mg Clonidine HCl (Catapres) 0.1 mg PO Q6HR PRN PRN Reason: BP MAINTENANCE (PER PROTOCOL) Stop: 10/02/16 18:28 Ferrous Sulfate (Iron) 325 mg PO DAILY [facility] Stop: 10/03/16 08:59 Last Admin: 08/05/16 08:53 Dose: 325 mg Hydromorphone HCl (Dilaudid) 2 mg IVP Q4HR PRN PRN Reason: Pain (Severe) Stop: 10/02/16 18:41 Last Admin: 08/06/16 04:16 Dose: 2 mg Ceftriaxone Sodium 1 gm/ (Sodium Chloride) 50 mls @ 100 mls/hr IV Q24H [facility] Stop: 10/04/16 16:59 Last Infusion: 08/05/16 18:00 Dose: Infused Sodium Chloride (Nacl 0.9%) 1,000 mls @ 50 mls/hr IV .Q20H [facility] Stop: 10/04/16 15:44 Last Admin: 08/05/16 16:32 Dose: 50 mls/hr Lactulose (Cephulac) 30 gm PO QID [facility] Stop: 10/02/16 20:59 Last Admin: 08/05/16 20:23 Dose: 30 gm Lisinopril (Zestril) 20 mg PO DAILY [facility] Stop: 10/03/16 08:59 Last Admin: 08/05/16 08:53 Dose: 20 mg Lorazepam (Ativan) 1 mg PO Q6H PRN; Protocol PRN Reason: Anxiety Stop: 10/02/16 18:28 Magnesium Hydroxide (Milk Of Magnesia) 30 ml PO HS PRN PRN Reason: Constipation Stop: 10/02/16 18:28 Metoclopramide HCl (Reglan) 10 mg PO Q6H PRN PRN Reason: Nausea Stop: 10/02/16 18:28 Multivitamins/Vitamin C (Theragran) 1 tab PO DAILY [facility] Stop: 10/03/16 08:59 Last Admin: 08/05/16 08:53 Dose: 1 tab Naproxen (Naprosyn) 500 mg PO Q12H PRN PRN Reason: Pain Stop: 10/02/16 18:28 Ondansetron HCl (Zofran) 4 mg IV Q6H PRN PRN Reason: Nausea / Vomiting Stop: 10/02/16 18:42 Pantoprazole Sodium (Protonix) 40 mg PO DAILY [facility] Stop: 10/03/16 08:59 Last Admin: 08/05/16 08:53 Dose: 40 mg Quetiapine Fumarate (Seroquel) 50 mg PO HS [facility] PRN Reason: Protocol Stop: 10/02/16 20:59 Last Admin: 08/05/16 20:22 Dose: 50 mg Risperidone (Risperdal) 1 mg PO BID [facility] PRN Reason: Protocol Stop: 10/03/16 16:59 Last Admin: 08/05/16 16:31 Dose: 1 mg Temazepam (Restoril) 15 mg PO HS PRN; Protocol PRN Reason: Insomnia Stop: 10/02/16 18:28 Last Admin: 08/04/16 21:40 Dose: 15 mg General: no acute distress, well developed, well nourished HEENT: atraumatic, normocephalic, PERRLA, EOMI Neck: supple, no thyromegaly, no lymphadenopathy Cardiovascular: S1S2, regular Lungs: clear to auscultation bilaterally, clear to percussion Abdomen: soft, no tender, no distended Extremities: no cyanosis, no clubbing, no edema Neurological: awake, alert, oriented, CN 2-12 intact Skin: intact Infectious Disease Assmt/Plan - Problem List Patient Problems: All Active Problems Acute exacerbation of chronic obstructive pulmonary disease (COPD) (Acute) J44.1 H/O chronic hepatitis (Acute) Z87.19 Hepatic encephalopathy (Acute) K72.90 Pneumonia, organism unspecified (Acute) J18.9 S/P FALLL...POSS. HIP FX (Acute) - Assessment Assessment: 1. pharyngitis. 2. Hyponatremia. 3. CVA. 4. Asthma and COPD. - Plan Plan: Continue rocephin, which can be changed to po keflex. add cepacol.
[2016-08-06 07:56] LABS: ANION GAP 6.6 (7.0-16.0); BUN - UREA NITROGEN 10 mg/dL (7-25); BUN/CREATININE RATIO 14.3; CALCIUM SERUM 8.7 mg/dL (8.6-10.3); CARBON DIOXIDE 25.5 mEq/L (21.0-31.0); CHLORIDE 99 mEq/L (98-107); CREATININE - SERUM 0.7 mg/dL (0.7-1.3); GLUCOSE 140 mg/dL (70-105); POTASSIUM SERUM 4.1 mEq/L (3.5-5.1); SODIUM SERUM 127 mEq/L (136-145)
[2016-08-06 08:52] LABS: HEMATOCRIT 32.3 % (39.0-49.0); HEMOGLOBIN 11.3 gm/dL (12.6-17.4); MEAN CELL VOLUME 89.5 fl (80-99); MEAN CORPUSCULAR HEMOGLOBIN 31.2 pg (27.0-31.0); MEAN CORPUSCULAR HGB CONC 34.9 pg (28.0-36.0); MEAN PLATELET VOLUME 8.7 fl; PLATELET COUNT 46 Th/cmm (150-400); RED BLOOD COUNT 3.61 Mil/cmm (3.80-5.80); RED CELL DISTRIBUTION WIDTH 13.4 % (11.5-20.0); WHITE BLOOD COUNT 4.5 Th/cmm (4.8-10.8)
[2016-08-06] MEDS: Ferrous Sulfate 325 MG TAB PO SCH (09:29)
[2016-08-06] MEDS: Lactulose 10 Gm/15 mL 30mL UDC PO SCH ×4 (09:29→20:52)
[2016-08-06] MEDS: Benztropine 1 MG TAB PO SCH ×2 (09:29→18:10)
[2016-08-06] MEDS: Aspirin 81mg Chewable Tab PO SCH (09:30)
[2016-08-06] MEDS: Pantoprazole 40 mg EC Tab PO SCH (09:30)
[2016-08-06] MEDS: Multivitamin Tab PO SCH (09:30)
[2016-08-06 09:33] LABS: BAND NEUTROPHILE 1 % (0-10); EOSINOPHIL 0 % (0-5); NEUTROPHILS 68 % (40-80); PLATELET ESTIMATE DECREASED PLATELETS (NORMAL); TOTAL CELLS COUNTED 100
[2016-08-06 09:34] LABS: PLATELET MORPHOLOGY NORMAL (NORMAL)
[2016-08-06] MEDS ORDERED: cefTRIAXone 1 GM in Sodium Chloride 0.9% 100 ML IV SCH ×3 (11:18→21:00)
[2016-08-06] MEDS: Sodium Chloride 0.9% 1,000 ML IV SCH (12:56)
[2016-08-06] MEDS: cefTRIAXone 1 GM in Sodium Chloride 0.9% 100 ML IV SCH (21:12)
[2016-08-07] MEDS: Multivitamin Tab PO SCH (08:40)
[2016-08-07] MEDS: Ferrous Sulfate 325 MG TAB PO SCH (08:40)
[2016-08-07] MEDS: Pantoprazole 40 mg EC Tab PO SCH (08:40)
[2016-08-07] MEDS: Benztropine 1 MG TAB PO SCH ×2 (08:40→16:19)
[2016-08-07] MEDS: Lactulose 10 Gm/15 mL 30mL UDC PO SCH ×4 (08:41→22:27)
[2016-08-07] MEDS: Aspirin 81mg Chewable Tab PO SCH (08:41)
[2016-08-07] MEDS: HYDROmorphone 2 mg/mL 1mL Vial IVP PRN ×4 (08:45→22:17)
[2016-08-07] MEDS: Sodium Chloride 0.9% 1,000 ML IV SCH (16:27)
--- NOTE | 2016-08-07 18:22 | General Progress Note ---
Subjective - Review of Systems Service Date: 08/07/16 Subjective: awake, with slight confusion nad Objective - Results Result Diagrams: 08/06/16 06:45 08/06/16 06:45 Recent Labs: Laboratory Last Values WBC 4.5 Th/cmm (4.8-10.8) L 08/06/16 06:45 RBC 3.61 Mil/cmm (3.80-5.80) L 08/06/16 06:45 Hgb 11.3 gm/dL (12.6-17.4) L 08/06/16 06:45 Hct 32.3 % (39.0-49.0) L 08/06/16 06:45 MCV 89.5 fl (80-99) 08/06/16 06:45 MCH 31.2 pg (27.0-31.0) H 08/06/16 06:45 MCHC Differential 34.9 pg (28.0-36.0) 08/06/16 06:45 RDW 13.4 % (11.5-20.0) 08/06/16 06:45 Plt Count 46 Th/cmm (150-400) L 08/06/16 06:45 MPV 8.7 fl 08/06/16 06:45 Band Neutrophils % 1 % (0-10) 08/06/16 06:45 Neutrophils (Manual) 68 % (40-80) 08/06/16 06:45 Lymphocytes 18 % (20-50) L 08/06/16 06:45 Monocytes 13 % (2-10) H 08/06/16 06:45 Eosinophils 0 % (0-5) 08/06/16 06:45 Metamyelocytes 1 % (0-0) H 08/05/16 09:40 Atypical Lymphocytes 2 % 08/05/16 09:40 Platelet Estimate DECREASED PLATELETS (NORMAL) 08/06/16 06:45 Platelet Morphology NORMAL (NORMAL) 08/06/16 06:45 RBC Morph Micro Appear NORMAL (NORMAL) 08/06/16 06:45 PT 11.9 SECONDS (9.5-11.5) H 08/03/16 09:19 INR 1.19 (0.5-1.4) 08/03/16 09:19 PTT (Actin FS) 31.6 SECONDS (26.0-38.0) 08/03/16 09:19 Sodium 127 mEq/L (136-145) L 08/06/16 06:45 Potassium 4.1 mEq/L (3.5-5.1) 08/06/16 06:45 Chloride 99 mEq/L (98-107) 08/06/16 06:45 Carbon Dioxide 25.5 mEq/L (21.0-31.0) 08/06/16 06:45 Anion Gap 6.6 (7.0-16.0) L 08/06/16 06:45 BUN 10 mg/dL (7-25) 08/06/16 06:45 Creatinine 0.7 mg/dL (0.7-1.3) 08/06/16 06:45 Est GFR ( Amer) > 60.0 ml/min (>90) 08/06/16 06:45 Est GFR (Non-Af Amer) > 60.0 ml/min 08/06/16 06:45 BUN/Creatinine Ratio 14.3 08/06/16 06:45 Glucose 140 mg/dL (70-105) H 08/06/16 06:45 Calcium 8.7 mg/dL (8.6-10.3) 08/06/16 06:45 Total Bilirubin 0.8 mg/dL (0.3-1.0) 08/03/16 09:19 AST 87 U/L (13-39) H 08/03/16 09:19 ALT 59 U/L (7-52) H 08/03/16 09:19 Alkaline Phosphatase 148 U/L (34-104) H 08/03/16 09:19 Ammonia 48 umol/L (16-53) 08/03/16 09:19 Creatine Kinase 75 U/L (30-223) 08/03/16 09:19 Troponin I 0.01 ng/mL (0.01-0.05) 08/03/16 09:19 Total Protein 6.7 gm/dL (6.0-8.3) 08/03/16 09:19 Albumin 3.4 gm/dL (4.2-5.5) L 08/03/16 09:19 Globulin 3.3 gm/dL 08/03/16 09:19 Albumin/Globulin Ratio 1.0 (1.0-1.8) 08/03/16 09:19 Blood Type O NEGATIVE 08/03/16 14:40 Antibody Screen NEGATIVE 08/03/16 14:40 - Physical Exam Vitals and I&O: Vital Signs Temp 97.4 F 08/07/16 15:49 Pulse 102 08/07/16 15:49 Resp 20 08/07/16 16:00 BP 158/100 08/07/16 15:49 Pulse Ox 98 08/07/16 15:49 Intake & Output 08/06/16 08/07/16 08/07/16 18:59 06:59 18:59 Intake Total 0222 332 8415 Output Total 1300 Balance 7655 036 6389 Intake: Intake, IV Amount [phone] Sodium Chloride 0.9% 1, 1000 1000 000 ml @ 50 mls/hr IV . Q20H [facility] Rx#:[id number] cefTRIAXone 1 gm In 100 Sodium Chloride 0.9% 100 ml @ 100 mls/hr IV Q24HR [facility] Rx#:[id number] Oral 115 [id number] [id number] Output: Urine 1300 Other: # Voids 4 3 # Bowel Movements 3 1 2 Stool Characteristics Liquid Liquid Foamy Active Medications: Current Medications Acetaminophen (Tylenol) 650 mg PO Q4HR PRN PRN Reason: pain and fever Stop: 10/02/16 18:28 Acetaminophen/Hydrocodone Bitart ([place] 5mg/325mg) 1 tab PO Q8H PRN PRN Reason: Pain (Moderate) Stop: 10/02/16 18:28 Last Admin: 08/04/16 20:18 Dose: 1 tab Al Hydrox/Mg Hydrox/Simethicone (Maalox) 30 ml PO Q4HR PRN PRN Reason: GI DISTRESS Stop: 10/02/16 18:54 Amitriptyline HCl (Elavil) 50 mg PO [facility] PRN Reason: Protocol Stop: 10/02/16 20:59 Last Admin: 08/06/16 20:51 Dose: 50 mg Aspirin (Aspirin Chewable) 81 mg PO DAILY [facility] Stop: 10/03/16 08:59 Last Admin: 08/07/16 08:41 Dose: 81 mg Benztropine Mesylate (Cogentin) 1 mg PO BID [facility] Stop: 10/03/16 08:59 Last Admin: 08/07/16 16:19 Dose: 1 mg Clindamycin HCl (Cleocin Hcl) 150 mg PO Q8HR [facility] Stop: 10/05/16 04:59 Last Admin: 08/07/16 14:04 Dose: 150 mg Clonidine HCl (Catapres) 0.1 mg PO Q6HR PRN PRN Reason: BP MAINTENANCE (PER PROTOCOL) Stop: 10/02/16 18:28 Last Admin: 08/07/16 08:41 Dose: 0.1 mg Ferrous Sulfate (Iron) 325 mg PO DAILY [facility] Stop: 10/03/16 08:59 Last Admin: 08/07/16 08:40 Dose: 325 mg Hydromorphone HCl (Dilaudid) 2 mg IVP Q4HR PRN PRN Reason: Pain (Severe) Stop: 10/02/16 18:41 Last Admin: 08/07/16 18:08 Dose: 2 mg Sodium Chloride (Nacl 0.9%) 1,000 mls @ 50 mls/hr IV .Q20H [facility] Stop: 10/04/16 15:44 Last Admin: 08/07/16 16:27 Dose: 50 mls/hr Ceftriaxone Sodium 1 gm/ (Sodium Chloride) 100 mls @ 100 mls/hr IV Q24HR [facility] Stop: 10/05/16 20:59 Last Infusion: 08/06/16 22:12 Dose: Infused Lactulose (Cephulac) 30 gm PO QID [facility] Stop: 10/02/16 20:59 Last Admin: 08/07/16 16:20 Dose: Not Given Lisinopril (Zestril) 20 mg PO DAILY [facility] Stop: 10/03/16 08:59 Last Admin: 08/07/16 08:41 Dose: 20 mg Lorazepam (Ativan) 1 mg PO Q6H PRN; Protocol PRN Reason: Anxiety Stop: 10/02/16 18:28 Magnesium Hydroxide (Milk Of Magnesia) 30 ml PO HS PRN PRN Reason: Constipation Stop: 10/02/16 18:28 Metoclopramide HCl (Reglan) 10 mg PO Q6H PRN PRN Reason: Nausea Stop: 10/02/16 18:28 Multivitamins/Vitamin C (Theragran) 1 tab PO DAILY [facility] Stop: 10/03/16 08:59 Last Admin: 08/07/16 08:40 Dose: 1 tab Naproxen (Naprosyn) 500 mg PO Q12H PRN PRN Reason: Pain Stop: 10/02/16 18:28 Ondansetron HCl (Zofran) 4 mg IV Q6H PRN PRN Reason: Nausea / Vomiting Stop: 10/02/16 18:42 Pantoprazole Sodium (Protonix) 40 mg PO DAILY [facility] Stop: 10/03/16 08:59 Last Admin: 08/07/16 08:40 Dose: 40 mg Quetiapine Fumarate (Seroquel) 50 mg PO HS [facility] PRN Reason: Protocol Stop: 10/02/16 20:59 Last Admin: 08/06/16 21:01 Dose: 50 mg Risperidone (Risperdal) 1 mg PO BID [facility] PRN Reason: Protocol Stop: 10/03/16 16:59 Last Admin: 08/07/16 16:19 Dose: 1 mg Temazepam (Restoril) 15 mg PO HS PRN; Protocol PRN Reason: Insomnia Stop: 10/02/16 18:28 Last Admin: 08/04/16 21:40 Dose: 15 mg Throat Lozenges (Cepacol) 1 liya MM Q4HR PRN PRN Reason: Sore Throat Stop: 10/05/16 04:43 Last Admin: 08/06/16 14:11 Dose: 1 liya Assessment/Plan - Problem List Patient Problems: All Active Problems Acute exacerbation of chronic obstructive pulmonary disease (COPD) (Acute) J44.1 H/O chronic hepatitis (Acute) Z87.19 Hepatic encephalopathy (Acute) K72.90 Pneumonia, organism unspecified (Acute) J18.9 S/P FALLL...POSS. HIP FX (Acute) - Plan Plan: fall precautions supplemental o2 follow up labs ivabx cpm
[2016-08-07] MEDS: cefTRIAXone 1 GM in Sodium Chloride 0.9% 100 ML IV SCH (20:42)
[2016-08-08] MEDS: HYDROmorphone 2 mg/mL 1mL Vial IVP PRN ×5 (05:43→22:39)
--- NOTE | 2016-08-08 09:01 | General Progress Note ---
Subjective - Review of Systems Subjective: awake, with slight confusion nad Objective - Results Result Diagrams: 08/06/16 06:45 08/06/16 06:45 Recent Labs: Laboratory Last Values WBC 4.5 Th/cmm (4.8-10.8) L 08/06/16 06:45 RBC 3.61 Mil/cmm (3.80-5.80) L 08/06/16 06:45 Hgb 11.3 gm/dL (12.6-17.4) L 08/06/16 06:45 Hct 32.3 % (39.0-49.0) L 08/06/16 06:45 MCV 89.5 fl (80-99) 08/06/16 06:45 MCH 31.2 pg (27.0-31.0) H 08/06/16 06:45 MCHC Differential 34.9 pg (28.0-36.0) 08/06/16 06:45 RDW 13.4 % (11.5-20.0) 08/06/16 06:45 Plt Count 46 Th/cmm (150-400) L 08/06/16 06:45 MPV 8.7 fl 08/06/16 06:45 Band Neutrophils % 1 % (0-10) 08/06/16 06:45 Neutrophils (Manual) 68 % (40-80) 08/06/16 06:45 Lymphocytes 18 % (20-50) L 08/06/16 06:45 Monocytes 13 % (2-10) H 08/06/16 06:45 Eosinophils 0 % (0-5) 08/06/16 06:45 Metamyelocytes 1 % (0-0) H 08/05/16 09:40 Atypical Lymphocytes 2 % 08/05/16 09:40 Platelet Estimate DECREASED PLATELETS (NORMAL) 08/06/16 06:45 Platelet Morphology NORMAL (NORMAL) 08/06/16 06:45 RBC Morph Micro Appear NORMAL (NORMAL) 08/06/16 06:45 PT 11.9 SECONDS (9.5-11.5) H 08/03/16 09:19 INR 1.19 (0.5-1.4) 08/03/16 09:19 PTT (Actin FS) 31.6 SECONDS (26.0-38.0) 08/03/16 09:19 Sodium 127 mEq/L (136-145) L 08/06/16 06:45 Potassium 4.1 mEq/L (3.5-5.1) 08/06/16 06:45 Chloride 99 mEq/L (98-107) 08/06/16 06:45 Carbon Dioxide 25.5 mEq/L (21.0-31.0) 08/06/16 06:45 Anion Gap 6.6 (7.0-16.0) L 08/06/16 06:45 BUN 10 mg/dL (7-25) 08/06/16 06:45 Creatinine 0.7 mg/dL (0.7-1.3) 08/06/16 06:45 Est GFR ( Amer) > 60.0 ml/min (>90) 08/06/16 06:45 Est GFR (Non-Af Amer) > 60.0 ml/min 08/06/16 06:45 BUN/Creatinine Ratio 14.3 08/06/16 06:45 Glucose 140 mg/dL (70-105) H 08/06/16 06:45 Calcium 8.7 mg/dL (8.6-10.3) 08/06/16 06:45 Total Bilirubin 0.8 mg/dL (0.3-1.0) 08/03/16 09:19 AST 87 U/L (13-39) H 08/03/16 09:19 ALT 59 U/L (7-52) H 08/03/16 09:19 Alkaline Phosphatase 148 U/L (34-104) H 08/03/16 09:19 Ammonia 48 umol/L (16-53) 08/03/16 09:19 Creatine Kinase 75 U/L (30-223) 08/03/16 09:19 Troponin I 0.01 ng/mL (0.01-0.05) 08/03/16 09:19 Total Protein 6.7 gm/dL (6.0-8.3) 08/03/16 09:19 Albumin 3.4 gm/dL (4.2-5.5) L 08/03/16 09:19 Globulin 3.3 gm/dL 08/03/16 09:19 Albumin/Globulin Ratio 1.0 (1.0-1.8) 08/03/16 09:19 Blood Type O NEGATIVE 02/01/17 14:40 Antibody Screen NEGATIVE 08/03/16 14:40 - Physical Exam Vitals and I&O: Vital Signs Temp 97.6 F 08/08/16 08:00 Pulse 94 08/08/16 08:00 Resp 18 08/08/16 08:00 BP 167/90 08/08/16 08:00 Pulse Ox 97 08/08/16 08:00 Intake & Output 08/07/16 08/08/16 08/08/16 18:59 06:59 18:59 Intake Total 2600 300 Output Total 1300 Balance 1300 300 Intake: Intake, IV Amount 1000 100 Sodium Chloride 0.9% 1, 1000 000 ml @ 50 mls/hr IV . Q20H [facility] Rx#:[id number] cefTRIAXone 1 gm In 100 Sodium Chloride 0.9% 100 ml @ 100 mls/hr IV Q24HR [facility] Rx#:[id number] Oral 1600 200 Output: Urine 1300 Other: # Voids 3 # Bowel Movements 2 1 Stool Characteristics Liquid Liquid Foamy Foamy Active Medications: Current Medications Acetaminophen (Tylenol) 650 mg PO Q4HR PRN PRN Reason: pain and fever Stop: 10/02/16 18:28 Acetaminophen/Hydrocodone Bitart ([place] 5mg/325mg) 1 tab PO Q8H PRN PRN Reason: Pain (Moderate) Stop: 10/02/16 18:28 Last Admin: 08/04/16 20:18 Dose: 1 tab Al Hydrox/Mg Hydrox/Simethicone (Maalox) 30 ml PO Q4HR PRN PRN Reason: GI DISTRESS Stop: 10/02/16 18:54 Amitriptyline HCl (Elavil) 50 mg PO [facility] PRN Reason: Protocol Stop: 10/02/16 20:59 Last Admin: 08/07/16 20:43 Dose: 50 mg Aspirin (Aspirin Chewable) 81 mg PO DAILY [facility] Stop: 10/03/16 08:59 Last Admin: 08/07/16 08:41 Dose: 81 mg Benztropine Mesylate (Cogentin) 1 mg PO BID [facility] Stop: 10/03/16 08:59 Last Admin: 08/07/16 16:19 Dose: 1 mg Clindamycin HCl (Cleocin Hcl) 150 mg PO Q8HR [facility] Stop: 10/05/16 04:59 Last Admin: 08/08/16 05:43 Dose: 150 mg Clonidine HCl (Catapres) 0.1 mg PO Q6HR PRN PRN Reason: BP MAINTENANCE (PER PROTOCOL) Stop: 10/02/16 18:28 Last Admin: 08/07/16 08:41 Dose: 0.1 mg Ferrous Sulfate (Iron) 325 mg PO DAILY [facility] Stop: 10/03/16 08:59 Last Admin: 08/07/16 08:40 Dose: 325 mg Hydromorphone HCl (Dilaudid) 2 mg IVP Q4HR PRN PRN Reason: Pain (Severe) Stop: 10/02/16 18:41 Last Admin: 08/08/16 05:43 Dose: 2 mg Sodium Chloride (Nacl 0.9%) 1,000 mls @ 50 mls/hr IV .Q20H [facility] Stop: 10/04/16 15:44 Last Admin: 08/07/16 16:27 Dose: 50 mls/hr Ceftriaxone Sodium 1 gm/ (Sodium Chloride) 100 mls @ 100 mls/hr IV Q24HR [facility] Stop: 10/05/16 20:59 Last Infusion: 08/07/16 21:42 Dose: Infused Lactulose (Cephulac) 30 gm PO QID [facility] Stop: 10/02/16 20:59 Last Admin: 08/07/16 22:27 Dose: Not Given Lisinopril (Zestril) 20 mg PO DAILY [facility] Stop: 10/03/16 08:59 Last Admin: 08/07/16 08:41 Dose: 20 mg Lorazepam (Ativan) 1 mg PO Q6H PRN; Protocol PRN Reason: Anxiety Stop: 10/02/16 18:28 Magnesium Hydroxide (Milk Of Magnesia) 30 ml PO HS PRN PRN Reason: Constipation Stop: 10/02/16 18:28 Metoclopramide HCl (Reglan) 10 mg PO Q6H PRN PRN Reason: Nausea Stop: 10/02/16 18:28 Multivitamins/Vitamin C (Theragran) 1 tab PO DAILY [facility] Stop: 10/03/16 08:59 Last Admin: 08/07/16 08:40 Dose: 1 tab Naproxen (Naprosyn) 500 mg PO Q12H PRN PRN Reason: Pain Stop: 10/02/16 18:28 Ondansetron HCl (Zofran) 4 mg IV Q6H PRN PRN Reason: Nausea / Vomiting Stop: 10/02/16 18:42 Pantoprazole Sodium (Protonix) 40 mg PO DAILY [facility] Stop: 10/03/16 08:59 Last Admin: 08/07/16 08:40 Dose: 40 mg Quetiapine Fumarate (Seroquel) 50 mg PO HS [facility] PRN Reason: Protocol Stop: 10/02/16 20:59 Last Admin: 08/07/16 20:44 Dose: 50 mg Risperidone (Risperdal) 1 mg PO BID [facility] PRN Reason: Protocol Stop: 10/03/16 16:59 Last Admin: 08/07/16 16:19 Dose: 1 mg Temazepam (Restoril) 15 mg PO HS PRN; Protocol PRN Reason: Insomnia Stop: 10/02/16 18:28 Last Admin: 08/04/16 21:40 Dose: 15 mg Throat Lozenges (Cepacol) 1 liya MM Q4HR PRN PRN Reason: Sore Throat Stop: 10/05/16 04:43 Last Admin: 08/06/16 14:11 Dose: 1 liya Assessment/Plan - Problem List Patient Problems: All Active Problems Acute exacerbation of chronic obstructive pulmonary disease (COPD) (Acute) J44.1 H/O chronic hepatitis (Acute) Z87.19 Hepatic encephalopathy (Acute) K72.90 Pneumonia, organism unspecified (Acute) J18.9 S/P FALLL...POSS. HIP FX (Acute) - Plan Plan: fall precautions supplemental o2 follow up labs ivabx cpm
[2016-08-08] MEDS: Multivitamin Tab PO SCH (09:11)
[2016-08-08] MEDS: Lactulose 10 Gm/15 mL 30mL UDC PO SCH ×4 (09:11→21:27)
[2016-08-08] MEDS: Pantoprazole 40 mg EC Tab PO SCH (09:12)
[2016-08-08] MEDS: Aspirin 81mg Chewable Tab PO SCH (09:12)
[2016-08-08] MEDS: Benztropine 1 MG TAB PO SCH ×2 (09:12→18:30)
[2016-08-08] MEDS: Ferrous Sulfate 325 MG TAB PO SCH (09:12)
[2016-08-08 12:37] LABS: INR 1.21 (0.5-1.4); PROTHROMBIN TIME (TEST) 12.2 SECONDS (9.5-11.5)
--- NOTE | 2016-08-08 13:13 | Infectious Disease Prog Note ---
Infectious Disease Subjective - Review of Systems Service Date: 08/08/16 Subjective: There is no new change, there is no fever. C/o hoarseness of voice, gradually improving. Infectious Disease Objective - Results Result Diagrams: 08/06/16 06:45 08/06/16 06:45 Recent Labs: Laboratory Last Values WBC 4.5 Th/cmm (4.8-10.8) L 08/06/16 06:45 RBC 3.61 Mil/cmm (3.80-5.80) L 08/06/16 06:45 Hgb 11.3 gm/dL (12.6-17.4) L 08/06/16 06:45 Hct 32.3 % (39.0-49.0) L 08/06/16 06:45 MCV 89.5 fl (80-99) 08/06/16 06:45 MCH 31.2 pg (27.0-31.0) H 08/06/16 06:45 MCHC Differential 34.9 pg (28.0-36.0) 08/06/16 06:45 RDW 13.4 % (11.5-20.0) 08/06/16 06:45 Plt Count 46 Th/cmm (150-400) L 08/06/16 06:45 MPV 8.7 fl 08/06/16 06:45 Band Neutrophils % 1 % (0-10) 08/06/16 06:45 Neutrophils (Manual) 68 % (40-80) 08/06/16 06:45 Lymphocytes 18 % (20-50) L 08/06/16 06:45 Monocytes 13 % (2-10) H 08/06/16 06:45 Eosinophils 0 % (0-5) 08/06/16 06:45 Metamyelocytes 1 % (0-0) H 08/05/16 09:40 Atypical Lymphocytes 2 % 08/05/16 09:40 Platelet Estimate DECREASED PLATELETS (NORMAL) 08/06/16 06:45 Platelet Morphology NORMAL (NORMAL) 08/06/16 06:45 RBC Morph Micro Appear NORMAL (NORMAL) 08/06/16 06:45 PT 12.2 SECONDS (9.5-11.5) H 08/08/16 11:15 INR 1.21 (0.5-1.4) 08/08/16 11:15 PTT (Actin FS) 29.0 SECONDS (26.0-38.0) 08/08/16 11:15 Sodium 127 mEq/L (136-145) L 08/06/16 06:45 Potassium 4.1 mEq/L (3.5-5.1) 08/06/16 06:45 Chloride 99 mEq/L (98-107) 08/06/16 06:45 Carbon Dioxide 25.5 mEq/L (21.0-31.0) 08/06/16 06:45 Anion Gap 6.6 (7.0-16.0) L 08/06/16 06:45 BUN 10 mg/dL (7-25) 08/06/16 06:45 Creatinine 0.7 mg/dL (0.7-1.3) 08/06/16 06:45 Est GFR ( Amer) > 60.0 ml/min (>90) 08/06/16 06:45 Est GFR (Non-Af Amer) > 60.0 ml/min 08/06/16 06:45 BUN/Creatinine Ratio 14.3 08/06/16 06:45 Glucose 140 mg/dL (70-105) H 08/06/16 06:45 Calcium 8.7 mg/dL (8.6-10.3) 08/06/16 06:45 Total Bilirubin 0.8 mg/dL (0.3-1.0) 08/03/16 09:19 AST 87 U/L (13-39) H 08/03/16 09:19 ALT 59 U/L (7-52) H 08/03/16 09:19 Alkaline Phosphatase 148 U/L (34-104) H 08/03/16 09:19 Ammonia 48 umol/L (16-53) 08/03/16 09:19 Creatine Kinase 75 U/L (30-223) 08/03/16 09:19 Troponin I 0.01 ng/mL (0.01-0.05) 08/03/16 09:19 Total Protein 6.7 gm/dL (6.0-8.3) 08/03/16 09:19 Albumin 3.4 gm/dL (4.2-5.5) L 08/03/16 09:19 Globulin 3.3 gm/dL 08/03/16 09:19 Albumin/Globulin Ratio 1.0 (1.0-1.8) 08/03/16 09:19 Blood Type O NEGATIVE 08/03/16 14:40 Antibody Screen NEGATIVE 08/03/16 14:40 - Physical Exam Vitals and I&O: Vital Signs Temp 97.6 F 08/08/16 08:00 Pulse 94 08/08/16 09:11 Resp 18 08/08/16 12:00 BP 167/90 08/08/16 09:11 Pulse Ox 97 08/08/16 08:00 Intake & Output 08/07/16 08/08/16 08/08/16 18:59 06:59 18:59 Intake Total 2600 300 Output Total 1300 Balance 1300 300 Intake: Intake, IV Amount 1000 100 Sodium Chloride 0.9% 1, 1000 000 ml @ 50 mls/hr IV . Q20H [facility] Rx#:[id number] cefTRIAXone 1 gm In 100 Sodium Chloride 0.9% 100 ml @ 100 mls/hr IV Q24HR [facility] Rx#:[id number] Oral 1600 200 Output: Urine 1300 Other: # Voids 3 # Bowel Movements 2 1 Stool Characteristics Liquid Liquid Foamy Foamy Active Medications: Current Medications Acetaminophen (Tylenol) 650 mg PO Q4HR PRN PRN Reason: pain and fever Stop: 10/02/16 18:28 Acetaminophen/Hydrocodone Bitart ([place] 5mg/325mg) 1 tab PO Q8H PRN PRN Reason: Pain (Moderate) Stop: 10/02/16 18:28 Last Admin: 08/04/16 20:18 Dose: 1 tab Al Hydrox/Mg Hydrox/Simethicone (Maalox) 30 ml PO Q4HR PRN PRN Reason: GI DISTRESS Stop: 10/02/16 18:54 Amitriptyline HCl (Elavil) 50 mg PO HS [facility] PRN Reason: Protocol Stop: 10/02/16 20:59 Last Admin: 08/07/16 20:43 Dose: 50 mg Aspirin (Aspirin Chewable) 81 mg PO DAILY [facility] Stop: 10/03/16 08:59 Last Admin: 08/08/16 09:12 Dose: 81 mg Benztropine Mesylate (Cogentin) 1 mg PO BID [facility] Stop: 10/03/16 08:59 Last Admin: 08/08/16 09:12 Dose: 1 mg Clindamycin HCl (Cleocin Hcl) 150 mg PO Q8HR [facility] Stop: 10/05/16 04:59 Last Admin: 08/08/16 05:43 Dose: 150 mg Clonidine HCl (Catapres) 0.1 mg PO Q6HR PRN PRN Reason: BP MAINTENANCE (PER PROTOCOL) Stop: 10/02/16 18:28 Last Admin: 08/07/16 08:41 Dose: 0.1 mg Ferrous Sulfate (Iron) 325 mg PO DAILY [facility] Stop: 10/03/16 08:59 Last Admin: 08/08/16 09:12 Dose: 325 mg Hydromorphone HCl (Dilaudid) 2 mg IVP Q4HR PRN PRN Reason: Pain (Severe) Stop: 10/02/16 18:41 Last Admin: 08/08/16 09:12 Dose: 2 mg Sodium Chloride (Nacl 0.9%) 1,000 mls @ 50 mls/hr IV .Q20H [facility] Stop: 10/04/16 15:44 Last Admin: 08/07/16 16:27 Dose: 50 mls/hr Ceftriaxone Sodium 1 gm/ (Sodium Chloride) 100 mls @ 100 mls/hr IV Q24HR [facility] Stop: 10/05/16 20:59 Last Infusion: 08/07/16 21:42 Dose: Infused Lactulose (Cephulac) 30 gm PO QID [facility] Stop: 10/02/16 20:59 Last Admin: 08/08/16 09:11 Dose: 30 gm Lisinopril (Zestril) 20 mg PO DAILY [facility] Stop: 10/03/16 08:59 Last Admin: 08/08/16 09:11 Dose: 20 mg Lorazepam (Ativan) 1 mg PO Q6H PRN; Protocol PRN Reason: Anxiety Stop: 10/02/16 18:28 Magnesium Hydroxide (Milk Of Magnesia) 30 ml PO HS PRN PRN Reason: Constipation Stop: 10/02/16 18:28 Metoclopramide HCl (Reglan) 10 mg PO Q6H PRN PRN Reason: Nausea Stop: 10/02/16 18:28 Multivitamins/Vitamin C (Theragran) 1 tab PO DAILY [facility] Stop: 10/03/16 08:59 Last Admin: 08/08/16 09:11 Dose: 1 tab Naproxen (Naprosyn) 500 mg PO Q12H PRN PRN Reason: Pain Stop: 10/02/16 18:28 Ondansetron HCl (Zofran) 4 mg IV Q6H PRN PRN Reason: Nausea / Vomiting Stop: 10/02/16 18:42 Pantoprazole Sodium (Protonix) 40 mg PO DAILY [facility] Stop: 10/03/16 08:59 Last Admin: 08/08/16 09:12 Dose: 40 mg Quetiapine Fumarate (Seroquel) 50 mg PO HS [facility] PRN Reason: Protocol Stop: 10/02/16 20:59 Last Admin: 08/07/16 20:44 Dose: 50 mg Risperidone (Risperdal) 1 mg PO BID [facility] PRN Reason: Protocol Stop: 10/03/16 16:59 Last Admin: 08/08/16 09:12 Dose: 1 mg Temazepam (Restoril) 15 mg PO HS PRN; Protocol PRN Reason: Insomnia Stop: 10/02/16 18:28 Last Admin: 08/04/16 21:40 Dose: 15 mg Throat Lozenges (Cepacol) 1 liya MM Q4HR PRN PRN Reason: Sore Throat Stop: 10/05/16 04:43 Last Admin: 08/06/16 14:11 Dose: 1 liya General: no acute distress, well developed, well nourished HEENT: atraumatic, normocephalic, PERRLA, EOMI, moist mucous membrane Neck: supple Cardiovascular: S1S2, regular Lungs: clear to auscultation bilaterally, clear to percussion Abdomen: soft, no tender Extremities: no clubbing, no edema Neurological: awake, alert, oriented, CN 2-12 intact Skin: intact Infectious Disease Assmt/Plan - Problem List Patient Problems: All Active Problems Acute exacerbation of chronic obstructive pulmonary disease (COPD) (Acute) J44.1 H/O chronic hepatitis (Acute) Z87.19 Hepatic encephalopathy (Acute) K72.90 Pneumonia, organism unspecified (Acute) J18.9 S/P FALLL...POSS. HIP FX (Acute) - Assessment Assessment: 1. pharyngitis. 2. Hyponatremia. 3. CVA. 4. Asthma and COPD. - Plan Plan: Continue rocephin, which can be changed to po keflex. Continue cepacol.
[2016-08-08] MEDS: Sodium Chloride 0.9% 1,000 ML IV SCH (14:05)
--- NOTE | 2016-08-08 14:13 | Consultation ---
HEMATOLOGY AND ONCOLOGY CONSULTATION REFERRING PHYSICIAN: Dr. Nair. REASON FOR CONSULTATION: Thrombocytopenia. HISTORY OF PRESENT ILLNESS: The patient is a 65-year-old male who had a history left hip surgery and suffered another fall and hematoma on the left hip, therefore admitted and found to have platelet count of 46, therefore, I was asked to evaluate. PAST MEDICAL HISTORY: Hepatitis C, chronic thrombocytopenia, chronic kidney disease, hypertension, COPD, osteoarthritis and psych disorder. MEDICATIONS: Reviewed. PHYSICAL EXAMINATION: GENERAL: The patient is awake, not in distress, poor historian. VITAL SIGNS: Stable. NECK: No peripheral lymphadenopathy. CHEST: Clear. ABDOMEN: Soft. No ascites. No organomegaly. EXTREMITIES: Left hip hematoma, multiple scars on knees bilaterally of previous surgery. LABORATORY DATA: White count 4.5, hemoglobin 11.3, platelets 46, creatinine 0.7. Liver functions elevated. PT and PTT normal from previous admission. IMPRESSION: Chronic low platelet count with chronic hepatitis C, likely cirrhosis with splenomegaly and consumption of platelet. I will obtain ultrasound of the abdomen and repeat coagulation panel, B12, and folate level. There is no need to transfuse at this time. Continue to monitor. Thank you, Dr. Nair for the opportunity to participate in the care of this interesting case. JOB# [id number]
--- NOTE | 2016-08-08 16:32 | Diagnostic Imaging Report ---
Abdominal ultrasound HISTORY: Splenomegaly The liver is enlarged. There is increased parenchymal echogenicity seen within the liver. The findings may be associated with fatty infiltration and should be correlated with liver function tests. The spleen is enlarged (18.4 cm length). Several intraluminal echogenic density seen within the gallbladder with cholelithiasis. The common bile duct is dilated (0.9 cm). Incomplete visualization of the pancreas. No focal renal lesions are seen. No hydronephrosis. No other retroperitoneal or intra-abdominal abnormalities. IMPRESSION: 1. Hepatosplenomegaly 2. Cholelithiasis 3. Dilated common bile duct (0.9 cm).
[2016-08-08] MEDS: Hydrocodone/APAP 5mg/325mg Tab PO PRN (21:26)
[2016-08-08] MEDS: cefTRIAXone 1 GM in Sodium Chloride 0.9% 100 ML IV SCH (21:27)
[2016-08-09] MEDS: HYDROmorphone 2 mg/mL 1mL Vial IVP PRN ×3 (05:50→22:01)
[2016-08-09 07:27] LABS: BILIRUBIN,DIRECT 0.6 mg/dL (0.0-0.2); BILIRUBIN,TOTAL 1.3 mg/dL (0.3-1.0)
[2016-08-09] MEDS: Benztropine 1 MG TAB PO SCH ×2 (09:06→16:26)
[2016-08-09] MEDS: Multivitamin Tab PO SCH (09:07)
[2016-08-09] MEDS: Hydrocodone/APAP 5mg/325mg Tab PO PRN (09:07)
[2016-08-09] MEDS: Ferrous Sulfate 325 MG TAB PO SCH (09:07)
[2016-08-09] MEDS: Pantoprazole 40 mg EC Tab PO SCH (09:07)
[2016-08-09] MEDS: Lactulose 10 Gm/15 mL 30mL UDC PO SCH ×4 (09:07→22:05)
[2016-08-09] MEDS: Aspirin 81mg Chewable Tab PO SCH (09:07)
--- NOTE | 2016-08-09 09:18 | General Progress Note ---
Subjective - Review of Systems Service Date: 08/09/16 Subjective: confused, denies any complaints. Objective - Results Result Diagrams: 08/09/16 13:35 08/06/16 06:45 Recent Labs: Laboratory Last Values WBC 4.5 Th/cmm (4.8-10.8) L 08/06/16 06:45 RBC 3.61 Mil/cmm (3.80-5.80) L 08/06/16 06:45 Hgb 11.3 gm/dL (12.6-17.4) L 08/06/16 06:45 Hct 32.3 % (39.0-49.0) L 08/06/16 06:45 MCV 89.5 fl (80-99) 08/06/16 06:45 MCH 31.2 pg (27.0-31.0) H 08/06/16 06:45 MCHC Differential 34.9 pg (28.0-36.0) 08/06/16 06:45 RDW 13.4 % (11.5-20.0) 08/06/16 06:45 Plt Count 46 Th/cmm (150-400) L 08/06/16 06:45 MPV 8.7 fl 08/06/16 06:45 Band Neutrophils % 1 % (0-10) 08/06/16 06:45 Neutrophils (Manual) 68 % (40-80) 08/06/16 06:45 Lymphocytes 18 % (20-50) L 08/06/16 06:45 Monocytes 13 % (2-10) H 08/06/16 06:45 Eosinophils 0 % (0-5) 08/06/16 06:45 Metamyelocytes 1 % (0-0) H 08/05/16 09:40 Atypical Lymphocytes 2 % 08/05/16 09:40 Platelet Estimate DECREASED PLATELETS (NORMAL) 08/06/16 06:45 Platelet Morphology NORMAL (NORMAL) 08/06/16 06:45 RBC Morph Micro Appear NORMAL (NORMAL) 08/06/16 06:45 PT 12.2 SECONDS (9.5-11.5) H 08/08/16 11:15 INR 1.21 (0.5-1.4) 08/08/16 11:15 PTT (Actin FS) 29.0 SECONDS (26.0-38.0) 08/08/16 11:15 Sodium 127 mEq/L (136-145) L 08/06/16 06:45 Potassium 4.1 mEq/L (3.5-5.1) 08/06/16 06:45 Chloride 99 mEq/L (98-107) 08/06/16 06:45 Carbon Dioxide 25.5 mEq/L (21.0-31.0) 08/06/16 06:45 Anion Gap 6.6 (7.0-16.0) L 08/06/16 06:45 BUN 10 mg/dL (7-25) 08/06/16 06:45 Creatinine 0.7 mg/dL (0.7-1.3) 08/06/16 06:45 Est GFR ( Amer) > 60.0 ml/min (>90) 08/06/16 06:45 Est GFR (Non-Af Amer) > 60.0 ml/min 08/06/16 06:45 BUN/Creatinine Ratio 14.3 08/06/16 06:45 Glucose 140 mg/dL (70-105) H 08/06/16 06:45 Calcium 8.7 mg/dL (8.6-10.3) 08/06/16 06:45 Total Bilirubin 1.3 mg/dL (0.3-1.0) H 08/09/16 06:30 Direct Bilirubin 0.60 mg/dL (0.0-0.2) H 08/09/16 06:30 AST 79 U/L (13-39) H 08/09/16 06:30 ALT 51 U/L (7-52) 08/09/16 06:30 Alkaline Phosphatase 89 U/L (34-104) 08/09/16 06:30 Ammonia 48 umol/L (16-53) 08/03/16 09:19 Creatine Kinase 75 U/L (30-223) 08/03/16 09:19 Troponin I 0.01 ng/mL (0.01-0.05) 08/03/16 09:19 Total Protein 6.4 gm/dL (6.0-8.3) 08/09/16 06:30 Albumin 3.2 gm/dL (4.2-5.5) L 08/09/16 06:30 Globulin 3.2 gm/dL 08/09/16 06:30 Albumin/Globulin Ratio 1.0 (1.0-1.8) 08/09/16 06:30 Blood Type O NEGATIVE 08/03/16 14:40 Antibody Screen NEGATIVE 08/03/16 14:40 - Physical Exam Vitals and I&O: Vital Signs Temp 97.6 F 08/09/16 08:00 Pulse 85 08/09/16 09:06 Resp 17 08/09/16 08:00 BP 141/94 08/09/16 09:06 Pulse Ox 94 08/09/16 08:00 Intake & Output 08/08/16 08/09/16 08/09/16 18:59 06:59 18:59 Intake Total 1000 300 Balance 1000 300 Intake: Intake, IV Amount 1000 Sodium Chloride 0.9% 1, 1000 000 ml @ 50 mls/hr IV . Q20H [facility] Rx#:[id number] Oral 300 Other: # Voids 3 Active Medications: Current Medications Acetaminophen (Tylenol) 650 mg PO Q4HR PRN PRN Reason: pain and fever Stop: 10/02/16 18:28 Acetaminophen/Hydrocodone Bitart ([place] 5mg/325mg) 1 tab PO Q8H PRN PRN Reason: Pain (Moderate) Stop: 10/02/16 18:28 Last Admin: 08/09/16 09:07 Dose: 1 tab Al Hydrox/Mg Hydrox/Simethicone (Maalox) 30 ml PO Q4HR PRN PRN Reason: GI DISTRESS Stop: 10/02/16 18:54 Amitriptyline HCl (Elavil) 50 mg PO HS [facility] PRN Reason: Protocol Stop: 10/02/16 20:59 Last Admin: 08/08/16 21:30 Dose: 50 mg Aspirin (Aspirin Chewable) 81 mg PO DAILY [facility] Stop: 10/03/16 08:59 Last Admin: 08/09/16 09:07 Dose: 81 mg Benztropine Mesylate (Cogentin) 1 mg PO BID [facility] Stop: 10/03/16 08:59 Last Admin: 08/09/16 09:06 Dose: 1 mg Clindamycin HCl (Cleocin Hcl) 150 mg PO Q8HR [facility] Stop: 10/05/16 04:59 Last Admin: 08/09/16 05:50 Dose: 150 mg Clonidine HCl (Catapres) 0.1 mg PO Q6HR PRN PRN Reason: BP MAINTENANCE (PER PROTOCOL) Stop: 10/02/16 18:28 Last Admin: 08/07/16 08:41 Dose: 0.1 mg Ferrous Sulfate (Iron) 325 mg PO DAILY [facility] Stop: 10/03/16 08:59 Last Admin: 08/09/16 09:07 Dose: 325 mg Hydromorphone HCl (Dilaudid) 2 mg IVP Q4HR PRN PRN Reason: Pain (Severe) Stop: 10/02/16 18:41 Last Admin: 08/09/16 05:50 Dose: 2 mg Sodium Chloride (Nacl 0.9%) 1,000 mls @ 50 mls/hr IV .Q20H [facility] Stop: 10/04/16 15:44 Last Admin: 08/08/16 14:05 Dose: 50 mls/hr Ceftriaxone Sodium 1 gm/ (Sodium Chloride) 100 mls @ 100 mls/hr IV Q24HR [facility] Stop: 10/05/16 20:59 Last Admin: 08/08/16 21:27 Dose: 100 mls/hr Lactulose (Cephulac) 30 gm PO QID [facility] Stop: 10/02/16 20:59 Last Admin: 08/09/16 09:07 Dose: 30 gm Lisinopril (Zestril) 20 mg PO DAILY [facility] Stop: 10/03/16 08:59 Last Admin: 08/09/16 09:06 Dose: 20 mg Lorazepam (Ativan) 1 mg PO Q6H PRN; Protocol PRN Reason: Anxiety Stop: 10/02/16 18:28 Magnesium Hydroxide (Milk Of Magnesia) 30 ml PO HS PRN PRN Reason: Constipation Stop: 10/02/16 18:28 Metoclopramide HCl (Reglan) 10 mg PO Q6H PRN PRN Reason: Nausea Stop: 10/02/16 18:28 Multivitamins/Vitamin C (Theragran) 1 tab PO DAILY [facility] Stop: 10/03/16 08:59 Last Admin: 08/09/16 09:07 Dose: 1 tab Naproxen (Naprosyn) 500 mg PO Q12H PRN PRN Reason: Pain Stop: 10/02/16 18:28 Ondansetron HCl (Zofran) 4 mg IV Q6H PRN PRN Reason: Nausea / Vomiting Stop: 10/02/16 18:42 Pantoprazole Sodium (Protonix) 40 mg PO DAILY [facility] Stop: 10/03/16 08:59 Last Admin: 08/09/16 09:07 Dose: 40 mg Quetiapine Fumarate (Seroquel) 50 mg PO HS [facility] PRN Reason: Protocol Stop: 10/02/16 20:59 Last Admin: 08/08/16 21:30 Dose: 50 mg Risperidone (Risperdal) 1 mg PO BID [facility] PRN Reason: Protocol Stop: 10/03/16 16:59 Last Admin: 08/09/16 09:07 Dose: 1 mg Temazepam (Restoril) 15 mg PO HS PRN; Protocol PRN Reason: Insomnia Stop: 10/02/16 18:28 Last Admin: 08/04/16 21:40 Dose: 15 mg Throat Lozenges (Cepacol) 1 liya MM Q4HR PRN PRN Reason: Sore Throat Stop: 10/05/16 04:43 Last Admin: 08/06/16 14:11 Dose: 1 liya General: Cooperative HEENT: Atraumatic Neck: Supple Cardiovascular: Regular rate Lungs: Clear to auscultation Abdomen: Bowel sounds Neurological: Normal gait Assessment/Plan - Problem List Patient Problems: All Active Problems Acute exacerbation of chronic obstructive pulmonary disease (COPD) (Acute) J44.1 H/O chronic hepatitis (Acute) Z87.19 Hepatic encephalopathy (Acute) K72.90 Pneumonia, organism unspecified (Acute) J18.9 S/P FALLL...POSS. HIP FX (Acute) - Plan Plan: fall precautions supplemental o2 follow up labs ivabx cpm
[2016-08-09 13:44] LABS: HEMATOCRIT 31.7 % (39.0-49.0); HEMOGLOBIN 10.9 gm/dL (12.6-17.4); MEAN CORPUSCULAR HEMOGLOBIN 30.9 pg (27.0-31.0); MEAN CORPUSCULAR HGB CONC 34.3 pg (28.0-36.0); RED BLOOD COUNT 3.53 Mil/cmm (3.80-5.80); RED CELL DISTRIBUTION WIDTH 13.5 % (11.5-20.0)
[2016-08-09 13:46] LABS: PLATELET COUNT 64 Th/cmm (150-400); WHITE BLOOD COUNT 3.2 Th/cmm (4.8-10.8)
[2016-08-09 14:06] LABS: EOSINOPHIL 3 % (0-5); NEUTROPHILS 64 % (40-80); PLATELET ESTIMATE DECREASED PLATELETS (NORMAL); PLATELET MORPHOLOGY NORMAL (NORMAL); TOTAL CELLS COUNTED 100
--- NOTE | 2016-08-09 14:22 | Consultation ---
GASTROENTEROLOGY CONSULTATION REFERRING PHYSICIAN: Jerman Nair M.D. REASON FOR CONSULTATION: Cirrhosis. HISTORY OF PRESENT ILLNESS: A 65-year-old male with history of obesity, chronic kidney disease, hypertension, COPD, osteoarthritis noted to have thrombocytopenia and mild elevation of liver enzymes and imaging suggested cholelithiasis. The patient has some vague epigastric abdominal pain. We were asked to evaluate the patient regarding his chronic liver disease and epigastric pain. PAST MEDICAL HISTORY: As above. MEDICATIONS: Here are Tylenol, [place], Maalox, Elavil, chewable aspirin, Cogentin, Rocephin, clindamycin, iron, Dilaudid, lactulose, lisinopril, Ativan, milk of magnesia, Reglan, multivitamin, Naprosyn p.r.n., Zofran p.r.n., Protonix, Seroquel, Risperdal, Restoril, Cepacol lozenges. ALLERGIES: None. SOCIAL HISTORY: No tobacco, past alcohol, past drugs. FAMILY HISTORY: Noncontributory. REVIEW OF SYSTEMS: A comprehensive 12-point review of systems was collected and is only positive for signs or symptoms present in the history of present illness. PHYSICAL EXAMINATION: VITAL SIGNS: Temperature 97.6, blood pressure 141/94, pulse is 92, respirations 17, O2 sats 94%. GENERAL: Well-developed, obese male in no acute distress. HEENT: Sclerae nonicteric. Oropharynx is clear. CARDIOVASCULAR: Regular rate and rhythm. LUNGS: Clear to auscultation bilaterally. ABDOMEN: Soft, mild epigastric tenderness to palpation. EXTREMITIES: No clubbing, cyanosis or edema. RECTAL: Deferred. LABORATORY DATA AND IMAGING: WBC 3.2, hemoglobin 10.9, platelet count 64. INR 1.2, sodium 127, creatinine 0.7, bilirubin 1.3 with direct fraction of 0.6, AST 79, ALT 51, alkaline phosphatase is 89. Albumin is 3.2. ASSESSMENT: 1. 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 2. 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 3. History of hepatic encephalopathy. 4. Mild anemia. 5. Chronic kidney disease, hypertension, chronic obstructive pulmonary disease, osteoarthritis and obesity. 6. Cholelithiasis. RECOMMENDATIONS: 1. We will obtain a HIDA scan, but the patient is a high surgical risk for laparoscopic cholecystectomy given his possible decompensated cirrhosis. This has been discussed with Dr. Velazquez, Surgeon. 2. Would continue lactulose and add rifaximin if needed. 3. Check liver labs. 4. Protonix. 5. Consider upper endoscopy and/or colonoscopy if HIDA scan is negative to further evaluate abdominal pain. Thank you, Dr. Nair for involving us in the care of your patient. If any further questions, please call us. JOB# [id number]
[2016-08-09] MEDS: Sodium Chloride 0.9% 1,000 ML IV SCH (15:54)
[2016-08-09] MEDS: cefTRIAXone 1 GM in Sodium Chloride 0.9% 100 ML IV SCH (22:03)
--- NOTE | 2016-08-09 23:49 | Infectious Disease Prog Note ---
Infectious Disease Subjective - Review of Systems Service Date: 08/09/16 Subjective: There is no new change, there is no fever. C/o hoarseness of voice, gradually improving. US abd revealed cholelithiasis and dilated CBD. Infectious Disease Objective - Results Result Diagrams: 08/09/16 13:35 08/06/16 06:45 Recent Labs: Laboratory Last Values WBC 3.2 Th/cmm (4.8-10.8) L D 08/09/16 13:35 RBC 3.53 Mil/cmm (3.80-5.80) L 08/09/16 13:35 Hgb 10.9 gm/dL (12.6-17.4) L 08/09/16 13:35 Hct 31.7 % (39.0-49.0) L 08/09/16 13:35 MCV 90.0 fl (80-99) 08/09/16 13:35 MCH 30.9 pg (27.0-31.0) 08/09/16 13:35 MCHC Differential 34.3 pg (28.0-36.0) 08/09/16 13:35 RDW 13.5 % (11.5-20.0) 08/09/16 13:35 Plt Count 64 Th/cmm (150-400) L D 08/09/16 13:35 MPV 7.0 fl 08/09/16 13:35 Band Neutrophils % 1 % (0-10) 08/06/16 06:45 Neutrophils (Manual) 64 % (40-80) 08/09/16 13:35 Lymphocytes 22 % (20-50) 08/09/16 13:35 Monocytes 11 % (2-10) H 08/09/16 13:35 Eosinophils 3 % (0-5) 08/09/16 13:35 Metamyelocytes 1 % (0-0) H 08/05/16 09:40 Atypical Lymphocytes 2 % 08/05/16 09:40 Platelet Estimate DECREASED PLATELETS (NORMAL) 08/09/16 13:35 Platelet Morphology NORMAL (NORMAL) 08/09/16 13:35 RBC Morph Micro Appear NORMAL (NORMAL) 08/09/16 13:35 PT 12.2 SECONDS (9.5-11.5) H 08/08/16 11:15 INR 1.21 (0.5-1.4) 08/08/16 11:15 PTT (Actin FS) 29.0 SECONDS (26.0-38.0) 08/08/16 11:15 Sodium 127 mEq/L (136-145) L 08/06/16 06:45 Potassium 4.1 mEq/L (3.5-5.1) 08/06/16 06:45 Chloride 99 mEq/L (98-107) 08/06/16 06:45 Carbon Dioxide 25.5 mEq/L (21.0-31.0) 08/06/16 06:45 Anion Gap 6.6 (7.0-16.0) L 08/06/16 06:45 BUN 10 mg/dL (7-25) 08/06/16 06:45 Creatinine 0.7 mg/dL (0.7-1.3) 08/06/16 06:45 Est GFR ( Amer) > 60.0 ml/min (>90) 08/06/16 06:45 Est GFR (Non-Af Amer) > 60.0 ml/min 08/06/16 06:45 BUN/Creatinine Ratio 14.3 08/06/16 06:45 Glucose 140 mg/dL (70-105) H 08/06/16 06:45 Calcium 8.7 mg/dL (8.6-10.3) 08/06/16 06:45 Total Bilirubin 1.3 mg/dL (0.3-1.0) H 08/09/16 06:30 Direct Bilirubin 0.60 mg/dL (0.0-0.2) H 08/09/16 06:30 AST 79 U/L (13-39) H 08/09/16 06:30 ALT 51 U/L (7-52) 08/09/16 06:30 Alkaline Phosphatase 89 U/L (34-104) 08/09/16 06:30 Ammonia 48 umol/L (16-53) 08/03/16 09:19 Creatine Kinase 75 U/L (30-223) 08/03/16 09:19 Troponin I 0.01 ng/mL (0.01-0.05) 08/03/16 09:19 Total Protein 6.4 gm/dL (6.0-8.3) 08/09/16 06:30 Albumin 3.2 gm/dL (4.2-5.5) L 08/09/16 06:30 Globulin 3.2 gm/dL 08/09/16 06:30 Albumin/Globulin Ratio 1.0 (1.0-1.8) 08/09/16 06:30 Blood Type O NEGATIVE 08/03/16 14:40 Antibody Screen NEGATIVE 08/03/16 14:40 - Physical Exam Vitals and I&O: Vital Signs Temp 98.4 F 08/09/16 16:00 Pulse 89 08/09/16 16:00 Resp 17 08/09/16 20:00 BP 156/90 08/09/16 16:00 Pulse Ox 98 08/09/16 16:00 Intake & Output 08/09/16 08/09/16 08/10/16 06:59 18:59 06:59 Intake Total 400 1000 Balance 400 1000 Intake: Intake, IV Amount 100 1000 Sodium Chloride 0.9% 1, 1000 000 ml @ 50 mls/hr IV . Q20H [facility] Rx#:[id number] cefTRIAXone 1 gm In 100 Sodium Chloride 0.9% 100 ml @ 100 mls/hr IV Q24HR [facility] Rx#:[id number] Oral 300 Other: # Voids 3 Active Medications: Current Medications Acetaminophen (Tylenol) 650 mg PO Q4HR PRN PRN Reason: pain and fever Stop: 10/02/16 18:28 Acetaminophen/Hydrocodone Bitart ([place] 5mg/325mg) 1 tab PO Q8H PRN PRN Reason: Pain (Moderate) Stop: 10/02/16 18:28 Last Admin: 08/09/16 09:07 Dose: 1 tab Al Hydrox/Mg Hydrox/Simethicone (Maalox) 30 ml PO Q4HR PRN PRN Reason: GI DISTRESS Stop: 10/02/16 18:54 Amitriptyline HCl (Elavil) 50 mg PO HS [facility] PRN Reason: Protocol Stop: 10/02/16 20:59 Last Admin: 08/09/16 22:05 Dose: 50 mg Aspirin (Aspirin Chewable) 81 mg PO DAILY [facility] Stop: 10/03/16 08:59 Last Admin: 08/09/16 09:07 Dose: 81 mg Benztropine Mesylate (Cogentin) 1 mg PO BID [facility] Stop: 10/03/16 08:59 Last Admin: 08/09/16 16:26 Dose: 1 mg Clindamycin HCl (Cleocin Hcl) 150 mg PO Q8HR [facility] Stop: 10/05/16 04:59 Last Admin: 08/09/16 22:05 Dose: 150 mg Clonidine HCl (Catapres) 0.1 mg PO Q6HR PRN PRN Reason: BP MAINTENANCE (PER PROTOCOL) Stop: 10/02/16 18:28 Last Admin: 08/07/16 08:41 Dose: 0.1 mg Ferrous Sulfate (Iron) 325 mg PO DAILY [facility] Stop: 10/03/16 08:59 Last Admin: 08/09/16 09:07 Dose: 325 mg Hydromorphone HCl (Dilaudid) 2 mg IVP Q4HR PRN PRN Reason: Pain (Severe) Stop: 10/02/16 18:41 Last Admin: 08/09/16 22:01 Dose: 2 mg Sodium Chloride (Nacl 0.9%) 1,000 mls @ 50 mls/hr IV .Q20H [facility] Stop: 10/04/16 15:44 Last Admin: 08/09/16 15:54 Dose: 50 mls/hr Ceftriaxone Sodium 1 gm/ (Sodium Chloride) 100 mls @ 100 mls/hr IV Q24HR [facility] Stop: 10/05/16 20:59 Last Admin: 08/09/16 22:03 Dose: 100 mls/hr Lactulose (Cephulac) 30 gm PO QID [facility] Stop: 10/02/16 20:59 Last Admin: 08/09/16 22:05 Dose: 30 gm Lisinopril (Zestril) 20 mg PO DAILY [facility] Stop: 10/03/16 08:59 Last Admin: 08/09/16 09:06 Dose: 20 mg Lorazepam (Ativan) 1 mg PO Q6H PRN; Protocol PRN Reason: Anxiety Stop: 10/02/16 18:28 Magnesium Hydroxide (Milk Of Magnesia) 30 ml PO HS PRN PRN Reason: Constipation Stop: 10/02/16 18:28 Metoclopramide HCl (Reglan) 10 mg PO Q6H PRN PRN Reason: Nausea Stop: 10/02/16 18:28 Multivitamins/Vitamin C (Theragran) 1 tab PO DAILY [facility] Stop: 10/03/16 08:59 Last Admin: 08/09/16 09:07 Dose: 1 tab Naproxen (Naprosyn) 500 mg PO Q12H PRN PRN Reason: Pain Stop: 10/02/16 18:28 Ondansetron HCl (Zofran) 4 mg IV Q6H PRN PRN Reason: Nausea / Vomiting Stop: 10/02/16 18:42 Pantoprazole Sodium (Protonix) 40 mg PO DAILY [facility] Stop: 10/03/16 08:59 Last Admin: 08/09/16 09:07 Dose: 40 mg Quetiapine Fumarate (Seroquel) 50 mg PO HS [facility] PRN Reason: Protocol Stop: 10/02/16 20:59 Last Admin: 08/09/16 22:05 Dose: 50 mg Risperidone (Risperdal) 1 mg PO BID [facility] PRN Reason: Protocol Stop: 10/03/16 16:59 Last Admin: 08/09/16 16:26 Dose: 1 mg Temazepam (Restoril) 15 mg PO HS PRN; Protocol PRN Reason: Insomnia Stop: 10/02/16 18:28 Last Admin: 08/04/16 21:40 Dose: 15 mg Throat Lozenges (Cepacol) 1 liya MM Q4HR PRN PRN Reason: Sore Throat Stop: 10/05/16 04:43 Last Admin: 08/06/16 14:11 Dose: 1 liya General: no acute distress, well developed, well nourished HEENT: atraumatic, normocephalic, PERRLA, EOMI Neck: supple, no thyromegaly Cardiovascular: S1S2, regular Lungs: clear to auscultation bilaterally, clear to percussion Abdomen: soft, no tender, no distended Extremities: no cyanosis, no clubbing Neurological: awake, alert, oriented Skin: intact Infectious Disease Assmt/Plan - Problem List Patient Problems: All Active Problems Acute exacerbation of chronic obstructive pulmonary disease (COPD) (Acute) J44.1 H/O chronic hepatitis (Acute) Z87.19 Hepatic encephalopathy (Acute) K72.90 Pneumonia, organism unspecified (Acute) J18.9 S/P FALLL...POSS. HIP FX (Acute) - Assessment Assessment: 1. pharyngitis. Improving. 2. Hyponatremia. 3. CVA. 4. Asthma and COPD. 5. Cholelithiasis with CBD dilatation. - Plan Plan: Continue rocephin. Continue cepacol.
[2016-08-10] MEDS: HYDROmorphone 2 mg/mL 1mL Vial IVP PRN ×3 (04:18→17:49)
[2016-08-10 06:08] LABS: FOLIC ACID 18.8 ng/mL (>3.0)
[2016-08-10 07:24] LABS: HEMATOCRIT 30.1 % (39.0-49.0); HEMOGLOBIN 10.5 gm/dL (12.6-17.4); MEAN CELL VOLUME 88.6 fl (80-99); PLATELET COUNT 54 Th/cmm (150-400); RED CELL DISTRIBUTION WIDTH 13.2 % (11.5-20.0)
[2016-08-10 07:42] LABS: ALB/GLOB RATIO 1.1 (1.0-1.8); BILIRUBIN,DIRECT 0.57 mg/dL (0.0-0.2); BILIRUBIN,TOTAL 1.2 mg/dL (0.3-1.0)
[2016-08-10 07:43] LABS: ANION GAP 11.3 (7.0-16.0); BUN - UREA NITROGEN 6 mg/dL (7-25); CALCIUM SERUM 8.8 mg/dL (8.6-10.3); CARBON DIOXIDE 26.3 mEq/L (21.0-31.0); CHLORIDE 103 mEq/L (98-107); CREATININE - SERUM 0.6 mg/dL (0.7-1.3); GLUCOSE 120 mg/dL (70-105); POTASSIUM SERUM 3.6 mEq/L (3.5-5.1); SODIUM SERUM 137 mEq/L (136-145)
[2016-08-10 09:30] LABS: BASOPHIL 1 % (0-3); EOSINOPHIL 7 % (0-5); NEUTROPHILS 58 % (40-80); PLATELET ESTIMATE DECREASED PLATELETS (NORMAL); PLATELET MORPHOLOGY NORMAL (NORMAL); TOTAL CELLS COUNTED 100
[2016-08-10] MEDS: Aspirin 81mg Chewable Tab PO SCH (09:32)
[2016-08-10] MEDS: Benztropine 1 MG TAB PO SCH ×2 (09:39→16:16)
[2016-08-10] MEDS: Pantoprazole 40 mg EC Tab PO SCH (09:40)
[2016-08-10] MEDS: Lactulose 10 Gm/15 mL 30mL UDC PO SCH ×3 (09:41→16:18)
[2016-08-10] MEDS: Multivitamin Tab PO SCH (09:41)
[2016-08-10] MEDS: Ferrous Sulfate 325 MG TAB PO SCH (09:44)
--- NOTE | 2016-08-10 10:04 | General Progress Note ---
Subjective - Review of Systems Subjective: confused, denies any complaints. Objective - Results Result Diagrams: 08/10/16 06:30 08/10/16 06:30 Recent Labs: Laboratory Last Values WBC 4.0 Th/cmm (4.8-10.8) L D 08/10/16 06:30 RBC 3.40 Mil/cmm (3.80-5.80) L 08/10/16 06:30 Hgb 10.5 gm/dL (12.6-17.4) L 08/10/16 06:30 Hct 30.1 % (39.0-49.0) L 08/10/16 06:30 MCV 88.6 fl (80-99) 08/10/16 06:30 MCH 31.0 pg (27.0-31.0) 08/10/16 06:30 MCHC Differential 35.0 pg (28.0-36.0) 08/10/16 06:30 RDW 13.2 % (11.5-20.0) 08/10/16 06:30 Plt Count 54 Th/cmm (150-400) L 08/10/16 06:30 MPV 8.0 fl 08/10/16 06:30 Band Neutrophils % 1 % (0-10) 08/06/16 06:45 Neutrophils (Manual) 58 % (40-80) 08/10/16 06:30 Lymphocytes 20 % (20-50) 08/10/16 06:30 Monocytes 14 % (2-10) H 08/10/16 06:30 Eosinophils 7 % (0-5) H 08/10/16 06:30 Basophils 1 % (0-3) 08/10/16 06:30 Metamyelocytes 1 % (0-0) H 08/05/16 09:40 Atypical Lymphocytes 2 % 08/05/16 09:40 Platelet Estimate DECREASED PLATELETS (NORMAL) 08/10/16 06:30 Platelet Morphology NORMAL (NORMAL) 08/10/16 06:30 RBC Morph Micro Appear NORMAL (NORMAL) 08/10/16 06:30 PT 12.2 SECONDS (9.5-11.5) H 08/08/16 11:15 INR 1.21 (0.5-1.4) 08/08/16 11:15 PTT (Actin FS) 29.0 SECONDS (26.0-38.0) 08/08/16 11:15 Sodium 137 mEq/L (136-145) 08/10/16 06:30 Potassium 3.6 mEq/L (3.5-5.1) 08/10/16 06:30 Chloride 103 mEq/L (98-107) 08/10/16 06:30 Carbon Dioxide 26.3 mEq/L (21.0-31.0) 08/10/16 06:30 Anion Gap 11.3 (7.0-16.0) 08/10/16 06:30 BUN 6 mg/dL (7-25) L 08/10/16 06:30 Creatinine 0.6 mg/dL (0.7-1.3) L 08/10/16 06:30 Est GFR ( Amer) > 60.0 ml/min (>90) 08/10/16 06:30 Est GFR (Non-Af Amer) > 60.0 ml/min 08/10/16 06:30 BUN/Creatinine Ratio 10.0 08/10/16 06:30 Glucose 120 mg/dL (70-105) H 08/10/16 06:30 Calcium 8.8 mg/dL (8.6-10.3) 08/10/16 06:30 Total Bilirubin 1.2 mg/dL (0.3-1.0) H 08/10/16 06:30 Direct Bilirubin 0.57 mg/dL (0.0-0.2) H 08/10/16 06:30 AST 62 U/L (13-39) H 08/10/16 06:30 ALT 44 U/L (7-52) 08/10/16 06:30 Alkaline Phosphatase 105 U/L (34-104) H 08/10/16 06:30 Ammonia 48 umol/L (16-53) 08/03/16 09:19 Creatine Kinase 75 U/L (30-223) 08/03/16 09:19 Troponin I 0.01 ng/mL (0.01-0.05) 08/03/16 09:19 Total Protein 5.9 gm/dL (6.0-8.3) L 08/10/16 06:30 Albumin 3.1 gm/dL (4.2-5.5) L 08/10/16 06:30 Globulin 2.8 gm/dL 08/10/16 06:30 Albumin/Globulin Ratio 1.1 (1.0-1.8) 08/10/16 06:30 Vitamin B12 1194 pg/mL (211-946) H 08/08/16 11:15 Folic Acid 18.8 ng/mL (>3.0) 08/08/16 11:15 Blood Type O NEGATIVE 08/03/16 14:40 Antibody Screen NEGATIVE 08/03/16 14:40 - Physical Exam Vitals and I&O: Vital Signs Temp 97.6 F 08/10/16 04:00 Pulse 85 08/10/16 09:41 Resp 18 08/10/16 04:00 BP 132/84 08/10/16 09:41 Pulse Ox 99 08/10/16 04:00 Intake & Output 08/09/16 08/10/16 08/10/16 18:59 06:59 18:59 Intake Total 1000 320 Output Total 325 Balance 1000 -5 Intake: Intake, IV Amount 1000 Sodium Chloride 0.9% 1, 1000 000 ml @ 50 mls/hr IV . Q20H [facility] Rx#:[id number] Oral 320 Output: Urine 325 Other: # Voids 3 Active Medications: Current Medications Acetaminophen (Tylenol) 650 mg PO Q4HR PRN PRN Reason: pain and fever Stop: 10/02/16 18:28 Acetaminophen/Hydrocodone Bitart ([place] 5mg/325mg) 1 tab PO Q8H PRN PRN Reason: Pain (Moderate) Stop: 10/02/16 18:28 Last Admin: 08/09/16 09:07 Dose: 1 tab Al Hydrox/Mg Hydrox/Simethicone (Maalox) 30 ml PO Q4HR PRN PRN Reason: GI DISTRESS Stop: 10/02/16 18:54 Amitriptyline HCl (Elavil) 50 mg PO HS [facility] PRN Reason: Protocol Stop: 10/02/16 20:59 Last Admin: 08/09/16 22:05 Dose: 50 mg Aspirin (Aspirin Chewable) 81 mg PO DAILY [facility] Stop: 10/03/16 08:59 Last Admin: 08/10/16 09:32 Dose: 81 mg Benztropine Mesylate (Cogentin) 1 mg PO BID [facility] Stop: 10/03/16 08:59 Last Admin: 08/10/16 09:39 Dose: 1 mg Clindamycin HCl (Cleocin Hcl) 150 mg PO Q8HR [facility] Stop: 10/05/16 04:59 Last Admin: 08/10/16 04:18 Dose: 150 mg Clonidine HCl (Catapres) 0.1 mg PO Q6HR PRN PRN Reason: BP MAINTENANCE (PER PROTOCOL) Stop: 10/02/16 18:28 Last Admin: 08/07/16 08:41 Dose: 0.1 mg Ferrous Sulfate (Iron) 325 mg PO DAILY [facility] Stop: 10/03/16 08:59 Last Admin: 08/10/16 09:44 Dose: 325 mg Hydromorphone HCl (Dilaudid) 2 mg IVP Q4HR PRN PRN Reason: Pain (Severe) Stop: 10/02/16 18:41 Last Admin: 08/10/16 04:18 Dose: 2 mg Sodium Chloride (Nacl 0.9%) 1,000 mls @ 50 mls/hr IV .Q20H [facility] Stop: 10/04/16 15:44 Last Admin: 08/09/16 15:54 Dose: 50 mls/hr Ceftriaxone Sodium 1 gm/ (Sodium Chloride) 100 mls @ 100 mls/hr IV Q24HR [facility] Stop: 10/05/16 20:59 Last Admin: 08/09/16 22:03 Dose: 100 mls/hr Lactulose (Cephulac) 30 gm PO QID [facility] Stop: 10/02/16 20:59 Last Admin: 08/10/16 09:41 Dose: 30 gm Lisinopril (Zestril) 20 mg PO DAILY [facility] Stop: 10/03/16 08:59 Last Admin: 08/10/16 09:41 Dose: 20 mg Lorazepam (Ativan) 1 mg PO Q6H PRN; Protocol PRN Reason: Anxiety Stop: 10/02/16 18:28 Magnesium Hydroxide (Milk Of Magnesia) 30 ml PO HS PRN PRN Reason: Constipation Stop: 10/02/16 18:28 Metoclopramide HCl (Reglan) 10 mg PO Q6H PRN PRN Reason: Nausea Stop: 10/02/16 18:28 Multivitamins/Vitamin C (Theragran) 1 tab PO DAILY [facility] Stop: 10/03/16 08:59 Last Admin: 08/10/16 09:41 Dose: 1 tab Naproxen (Naprosyn) 500 mg PO Q12H PRN PRN Reason: Pain Stop: 10/02/16 18:28 Ondansetron HCl (Zofran) 4 mg IV Q6H PRN PRN Reason: Nausea / Vomiting Stop: 10/02/16 18:42 Pantoprazole Sodium (Protonix) 40 mg PO DAILY [facility] Stop: 10/03/16 08:59 Last Admin: 08/10/16 09:40 Dose: 40 mg Quetiapine Fumarate (Seroquel) 50 mg PO HS [facility] PRN Reason: Protocol Stop: 10/02/16 20:59 Last Admin: 08/09/16 22:05 Dose: 50 mg Risperidone (Risperdal) 1 mg PO BID [facility] PRN Reason: Protocol Stop: 10/03/16 16:59 Last Admin: 08/10/16 09:39 Dose: 1 mg Temazepam (Restoril) 15 mg PO HS PRN; Protocol PRN Reason: Insomnia Stop: 10/02/16 18:28 Last Admin: 08/04/16 21:40 Dose: 15 mg Throat Lozenges (Cepacol) 1 liya MM Q4HR PRN PRN Reason: Sore Throat Stop: 10/05/16 04:43 Last Admin: 08/10/16 04:24 Dose: 1 liya Assessment/Plan - Problem List Patient Problems: All Active Problems Acute exacerbation of chronic obstructive pulmonary disease (COPD) (Acute) J44.1 H/O chronic hepatitis (Acute) Z87.19 Hepatic encephalopathy (Acute) K72.90 Pneumonia, organism unspecified (Acute) J18.9 S/P FALLL...POSS. HIP FX (Acute) - Plan Plan: fall precautions supplemental o2 follow up labs ivabx cpm
--- NOTE | 2016-08-10 11:41 | Diagnostic Imaging Report ---
Nuclear medicine HIDA scan HISTORY: Pain, assess for possible cholecystitis COMPARISON: Ultrasound abdomen on 08/08/2016 Technique/procedure: 5.7 mCi of technetium labeled Choletec was administered intravenously and multiple scintigraphic images were obtained for up to 1 hour. FINDINGS: Prompt hepatic uptake is demonstrated. Gallbladder uptake is seen at 60 minutes with more filling in at 90 minutes. Small bowel uptake is also seen at 60 minutes. IMPRESSION: Slight delayed gallbladder uptake at 60 minutes. No evidence of acute cholecystitis. Chronic cholecystitis would be considered less likely but cannot be completely excluded. Mild delayed biliary to bowel transit.
[2016-08-10] MEDS: Hydrocodone/APAP 5mg/325mg Tab PO PRN (16:16)
[2016-08-10] MEDS: Sodium Chloride 0.9% 1,000 ML IV SCH (16:20)
--- NOTE | 2016-08-10 18:39 | General Progress Note ---
Subjective - Review of Systems Service Date: 08/10/16 Subjective: MILD ABD PAIN. YNES DIET. Objective - Results Result Diagrams: 08/10/16 06:30 08/10/16 06:30 Recent Labs: Laboratory Last Values WBC 4.0 Th/cmm (4.8-10.8) L D 08/10/16 06:30 RBC 3.40 Mil/cmm (3.80-5.80) L 08/10/16 06:30 Hgb 10.5 gm/dL (12.6-17.4) L 08/10/16 06:30 Hct 30.1 % (39.0-49.0) L 08/10/16 06:30 MCV 88.6 fl (80-99) 08/10/16 06:30 MCH 31.0 pg (27.0-31.0) 08/10/16 06:30 MCHC Differential 35.0 pg (28.0-36.0) 08/10/16 06:30 RDW 13.2 % (11.5-20.0) 08/10/16 06:30 Plt Count 54 Th/cmm (150-400) L 08/10/16 06:30 MPV 8.0 fl 08/10/16 06:30 Band Neutrophils % 1 % (0-10) 08/06/16 06:45 Neutrophils (Manual) 58 % (40-80) 08/10/16 06:30 Lymphocytes 20 % (20-50) 08/10/16 06:30 Monocytes 14 % (2-10) H 08/10/16 06:30 Eosinophils 7 % (0-5) H 08/10/16 06:30 Basophils 1 % (0-3) 08/10/16 06:30 Metamyelocytes 1 % (0-0) H 08/05/16 09:40 Atypical Lymphocytes 2 % 08/05/16 09:40 Platelet Estimate DECREASED PLATELETS (NORMAL) 08/10/16 06:30 Platelet Morphology NORMAL (NORMAL) 08/10/16 06:30 RBC Morph Micro Appear NORMAL (NORMAL) 08/10/16 06:30 PT 12.2 SECONDS (9.5-11.5) H 08/08/16 11:15 INR 1.21 (0.5-1.4) 08/08/16 11:15 PTT (Actin FS) 29.0 SECONDS (26.0-38.0) 08/08/16 11:15 Sodium 137 mEq/L (136-145) 08/10/16 06:30 Potassium 3.6 mEq/L (3.5-5.1) 08/10/16 06:30 Chloride 103 mEq/L (98-107) 08/10/16 06:30 Carbon Dioxide 26.3 mEq/L (21.0-31.0) 08/10/16 06:30 Anion Gap 11.3 (7.0-16.0) 08/10/16 06:30 BUN 6 mg/dL (7-25) L 08/10/16 06:30 Creatinine 0.6 mg/dL (0.7-1.3) L 08/10/16 06:30 Est GFR ( Amer) > 60.0 ml/min (>90) 08/10/16 06:30 Est GFR (Non-Af Amer) > 60.0 ml/min 08/10/16 06:30 BUN/Creatinine Ratio 10.0 08/10/16 06:30 Glucose 120 mg/dL (70-105) H 08/10/16 06:30 Calcium 8.8 mg/dL (8.6-10.3) 08/10/16 06:30 Total Bilirubin 1.2 mg/dL (0.3-1.0) H 08/10/16 06:30 Direct Bilirubin 0.57 mg/dL (0.0-0.2) H 08/10/16 06:30 AST 62 U/L (13-39) H 08/10/16 06:30 ALT 44 U/L (7-52) 08/10/16 06:30 Alkaline Phosphatase 105 U/L (34-104) H 08/10/16 06:30 Ammonia 48 umol/L (16-53) 08/03/16 09:19 Creatine Kinase 75 U/L (30-223) 08/03/16 09:19 Troponin I 0.01 ng/mL (0.01-0.05) 08/03/16 09:19 Total Protein 5.9 gm/dL (6.0-8.3) L 08/10/16 06:30 Albumin 3.1 gm/dL (4.2-5.5) L 08/10/16 06:30 Globulin 2.8 gm/dL 08/10/16 06:30 Albumin/Globulin Ratio 1.1 (1.0-1.8) 08/10/16 06:30 Vitamin B12 1194 pg/mL (211-946) H 08/08/16 11:15 Folic Acid 18.8 ng/mL (>3.0) 08/08/16 11:15 Blood Type O NEGATIVE 08/03/16 14:40 Antibody Screen NEGATIVE 08/03/16 14:40 - Physical Exam Vitals and I&O: Vital Signs Temp 98.2 F 08/10/16 17:39 Pulse 87 08/10/16 17:39 Resp 19 08/10/16 17:39 BP 131/77 08/10/16 17:39 Pulse Ox 97 08/10/16 17:39 Intake & Output 08/09/16 08/10/16 08/10/16 18:59 06:59 18:59 Intake Total 4886 050 0015 Output Total 325 Balance 1000 -5 1000 Intake: Intake, IV Amount 1000 1000 Sodium Chloride 0.9% 1, 1000 1000 000 ml @ 50 mls/hr IV . Q20H [facility] Rx#:[id number] Oral 320 Output: Urine 325 Other: # Voids 3 Active Medications: Current Medications Acetaminophen (Tylenol) 650 mg PO Q4HR PRN PRN Reason: pain and fever Stop: 10/02/16 18:28 Acetaminophen/Hydrocodone Bitart ([place] 5mg/325mg) 1 tab PO Q8H PRN PRN Reason: Pain (Moderate) Stop: 10/02/16 18:28 Last Admin: 08/10/16 16:16 Dose: 1 tab Al Hydrox/Mg Hydrox/Simethicone (Maalox) 30 ml PO Q4HR PRN PRN Reason: GI DISTRESS Stop: 10/02/16 18:54 Amitriptyline HCl (Elavil) 50 mg PO HS [facility] PRN Reason: Protocol Stop: 10/02/16 20:59 Last Admin: 08/09/16 22:05 Dose: 50 mg Aspirin (Aspirin Chewable) 81 mg PO DAILY [facility] Stop: 10/03/16 08:59 Last Admin: 08/10/16 09:32 Dose: 81 mg Benztropine Mesylate (Cogentin) 1 mg PO BID [facility] Stop: 10/03/16 08:59 Last Admin: 08/10/16 16:16 Dose: 1 mg Clindamycin HCl (Cleocin Hcl) 150 mg PO Q8HR [facility] Stop: 10/05/16 04:59 Last Admin: 08/10/16 12:16 Dose: 150 mg Clonidine HCl (Catapres) 0.1 mg PO Q6HR PRN PRN Reason: BP MAINTENANCE (PER PROTOCOL) Stop: 10/02/16 18:28 Last Admin: 08/07/16 08:41 Dose: 0.1 mg Ferrous Sulfate (Iron) 325 mg PO DAILY [facility] Stop: 10/03/16 08:59 Last Admin: 08/10/16 09:44 Dose: 325 mg Hydromorphone HCl (Dilaudid) 2 mg IVP Q4HR PRN PRN Reason: Pain (Severe) Stop: 10/02/16 18:41 Last Admin: 08/10/16 17:49 Dose: 2 mg Sodium Chloride (Nacl 0.9%) 1,000 mls @ 50 mls/hr IV .Q20H [facility] Stop: 10/04/16 15:44 Last Admin: 08/10/16 16:20 Dose: 50 mls/hr Ceftriaxone Sodium 1 gm/ (Sodium Chloride) 100 mls @ 100 mls/hr IV Q24HR [facility] Stop: 10/05/16 20:59 Last Admin: 08/09/16 22:03 Dose: 100 mls/hr Dextrose/Sodium Chloride (D5-0.45ns) 1,000 mls @ 50 mls/hr IV .Q20H [facility] Stop: 10/10/16 00:00 Lactulose (Cephulac) 30 gm PO QID [facility] Stop: 10/02/16 20:59 Last Admin: 08/10/16 16:18 Dose: 30 gm Lisinopril (Zestril) 20 mg PO DAILY [facility] Stop: 10/03/16 08:59 Last Admin: 08/10/16 09:41 Dose: 20 mg Lorazepam (Ativan) 1 mg PO Q6H PRN; Protocol PRN Reason: Anxiety Stop: 10/02/16 18:28 Magnesium Hydroxide (Milk Of Magnesia) 30 ml PO HS PRN PRN Reason: Constipation Stop: 10/02/16 18:28 Metoclopramide HCl (Reglan) 10 mg PO Q6H PRN PRN Reason: Nausea Stop: 10/02/16 18:28 Multivitamins/Vitamin C (Theragran) 1 tab PO DAILY [facility] Stop: 10/03/16 08:59 Last Admin: 08/10/16 09:41 Dose: 1 tab Naproxen (Naprosyn) 500 mg PO Q12H PRN PRN Reason: Pain Stop: 10/02/16 18:28 Ondansetron HCl (Zofran) 4 mg IV Q6H PRN PRN Reason: Nausea / Vomiting Stop: 10/02/16 18:42 Pantoprazole Sodium (Protonix) 40 mg PO DAILY [facility] Stop: 10/03/16 08:59 Last Admin: 08/10/16 09:40 Dose: 40 mg Quetiapine Fumarate (Seroquel) 50 mg PO HS [facility] PRN Reason: Protocol Stop: 10/02/16 20:59 Last Admin: 08/09/16 22:05 Dose: 50 mg Risperidone (Risperdal) 1 mg PO BID [facility] PRN Reason: Protocol Stop: 10/03/16 16:59 Last Admin: 08/10/16 16:15 Dose: 1 mg Temazepam (Restoril) 15 mg PO HS PRN; Protocol PRN Reason: Insomnia Stop: 10/02/16 18:28 Last Admin: 08/04/16 21:40 Dose: 15 mg Throat Lozenges (Cepacol) 1 liya MM Q4HR PRN PRN Reason: Sore Throat Stop: 10/05/16 04:43 Last Admin: 08/10/16 04:24 Dose: 1 liya General: Alert, Oriented x3 HEENT: Atraumatic Neck: Supple Cardiovascular: Regular rate Lungs: Clear to auscultation Abdomen: Bowel sounds, Soft Assessment/Plan - Problem List Patient Problems: All Active Problems Acute exacerbation of chronic obstructive pulmonary disease (COPD) (Acute) J44.1 H/O chronic hepatitis (Acute) Z87.19 Hepatic encephalopathy (Acute) K72.90 Pneumonia, organism unspecified (Acute) J18.9 S/P FALLL...POSS. HIP FX (Acute) - Assessment Assessment: 1. ABD PAIN - LIKELY CHRONIC CHOLECYSTITIS INDICATED BY HIDA SCAN; LESS LIKELY PUD/GASTRITIS. 2. CHOLELITHIASIS. 3. HEPATITIS C CIRRHOSIS. 4. POSSIBLE HEPATIC ENCEPHALOPATHY. 5. THROMBOCYTOPENIA. - Plan Plan: 1. ABX. 2. PROTONIX. 3. ANTIEMETICS. 4. DEFER LAP RENETTA GIVEN DECOMPENSATED CIRRHOSIS - D/W DR. HILL. 5. EGD OFFERED AND PATIENT AGREED, BUT PATIENT BEING DISCHARGED. CAN BE DONE OUTPT.
[2016-08-11] MEDS ORDERED: D5-0.45NS 1,000 ML IV SCH (00:01)
[2016-08-12 12:14] LABS: ANTITRYPSIN SERUM A1 175 mg/dL (90-200); CERULOPLASMIN 17.4 mg/dL (16.0-31.0); F1 ACTIN-SMOOTH MUSC IGG 20 Units (0-19); FERRITIN 365 ng/mL (30-400); GAMMA GLUTAMYL TRANSFERASE 201 IU/L (0-65); HEP B CORE IGM Negative (Negative); HEP C ANTIBODY >11.0 s/co ratio (0.0-0.9); IRON SATURATION 26 % (15-55); TIBC (LCI) 261 ug/dL (250-450); UIBC 193 ug/dL (111-343)
--- NOTE | 2016-08-15 19:58 | Discharge Summary ---
HOSPITAL COURSE: The [facility] through [facility] Room with a chief complaint patient had an episode of fall and stated that he felt dizzy and had pain on his left chest. Series of x-ray of the hip was done and negative for any fracture, although the patient has a history of hip replacement before patient was admitted to telemetry. The patient was also consulted with GI due to cirrhosis and also consulted with ID specialist due to pharyngitis. The patient was discharged back to [facility]. FINAL DIAGNOSES: 1.Status post fall, chronic right hip pain, status post right hip replacement surgery. 2.Liver cirrhosis. 3.Hypertension. 4.Schizophrenia. JOB# [id number]
== END 2016-08-10 18:30 | DRG 433 ==
LOC: ER 08:30 → TELE 15:01
PROVIDERS: ADMIT Internal Medicine; ATTEND Internal Medicine
DX: K70.30 Alcoholic cirrhosis of liver without ascites (principal); J44.0 Chronic obstructive pulmonary disease with (acute) lower respiratory infection; K72.90 Hepatic failure, unspecified without coma; D69.6 Thrombocytopenia, unspecified; E87.1 Hypo-osmolality and hyponatremia; K80.10 Calculus of gallbladder with chronic cholecystitis without obstruction; J44.1 Chronic obstructive pulmonary disease with (acute) exacerbation; F25.9 Schizoaffective disorder, unspecified; J02.9 Acute pharyngitis, unspecified; M19.90 Unspecified osteoarthritis, unspecified site; I12.9 Hypertensive chronic kidney disease with stage 1 through stage 4 chronic kidney disease, or unspecified chronic kidney disease; N18.9 Chronic kidney disease, unspecified; J45.909 Unspecified asthma, uncomplicated; E66.9 Obesity, unspecified; W19.XXXA Unspecified fall, initial encounter; Y92.89 Other specified places as the place of occurrence of the external cause; Y99.8 Other external cause status; S50.312A Abrasion of left elbow, initial encounter; S00.01XA Abrasion of scalp, initial encounter; K21.9 Gastro-esophageal reflux disease without esophagitis; M81.0 Age-related osteoporosis without current pathological fracture; D64.9 Anemia, unspecified; F17.210 Nicotine dependence, cigarettes, uncomplicated; S70.02XA Contusion of left hip, initial encounter; B18.2 Chronic viral hepatitis C; Z86.73 Personal history of transient ischemic attack (TIA), and cerebral infarction without residual deficits; Z68.32 Body mass index [BMI] 32.0-32.9, adult; Z80.3 Family history of malignant neoplasm of breast; Z87.11 Personal history of peptic ulcer disease; Z79.82 Long term (current) use of aspirin; Z82.49 Family history of ischemic heart disease and other diseases of the circulatory system
CPT/HCPCS: 36415-UA; 70450-TC; 72192-TC; 73070-TC-LT; 76700-TC; 78226-TC; 80048-TC; 80053-TC; 80074-90; 80076-TC; 82103-90; 82140-TC; 82390-90; 82550-TC; 82607-90; 82728-90; 82746-90; 82977-90; 83516-90; 83540-90; 83550-90; 84484-TC; 85007-TC; 85027-TC; 85610-TC; 86255-90; 86850-TC; 86900-TC; 86901-TC; 87070-90; 93005; 96374; 96375; A9537; J0696; J1170; J2405; J7030; Z7610

== ENCOUNTER 2016-10-27 21:02 | Inpatient (IN) | payer MEDICARE, MEDICAID ==
[2016-10-27 21:44] LABS: HEMATOCRIT 32.4 % (39.0-49.0); HEMOGLOBIN 11.4 gm/dL (12.6-17.4); MEAN CELL VOLUME 88.5 fl (80-99); MEAN PLATELET VOLUME 7.5 fl; RED BLOOD COUNT 3.66 Mil/cmm (3.80-5.80)
--- NOTE | 2016-10-27 21:54 | ED Physician Chart ---
Chief Complaint/HPI - Patient Information Date Seen:: 10/27/16 Time Seen:: 21:40 Chief Complaint:: cough and laryngitis History of Present Illness:: Patient's had loss of voice and cough productive of clear sputum for the last 2 weeks. He's had no chest pain. He has had no fever. He has abdominal pain when he coughs. Patient quit smoking one month ago Allergies:: Allergies Allergy/AdvReac Type Severity Reaction Status Date / Time No Known Allergies Allergy Verified 10/27/16 21:09 Vitals:: Vital Signs - 8 hr 10/27/16 21:10 Temp 98.1 F HR 89 RR 18 BP 177/94 O2 Sat % 99 Historian:: Patient Review:: Nurse's Note Reviewed Review of Systems - Review of Systems General/Constitutional: No fever, No chills Skin: No skin lesions Head: No headache Eyes: No loss of vision ENT: Other (see under history) Neck: No stiffness Cardio Vascular: No chest pain Pulmonary: Cough, Sputum GI: No nausea, No vomiting G/U: No dysuria Musculoskeletal: No bone or joint pain Psychiatric: Prior psych history, Depression Allergic/Immuno: No urticaria Neurological: No syncope Past Medical History - Past Medical History Past Medical History: HTN, Asthma/COPD, PUD/GERD, Other (end-stage renal disease ; hepatitis C; gastritis; anemias; history of MRSA; peptic ulcer; congestive heart failures; COPD; schizophrenia; depression; gastroesophageal reflux disease ) Family History: HTN Social History: Non Smoker, No Alcohol Surgical History: other (left hip) Psychiatricy History: Depression, Schizophrenia Medication: Reviewed Family Medical History - Family Member Mother History Unknown: Yes Ethnicity: Non- Living Status: Hx Family Cancer: Yes Hx Family Coronary Artery Disease: No Hx Family Congestive Heart Failure: No Hx Family Hypertension: Yes Hx Family Stroke: No Hx Family Diabetes: No Hx Family Seizures: No Hx Family Dementia: No Hx Family AIDS: No Hx Family HIV: No Hx Family COPD: No Hx Family Hepatitis: No Hx Family Psychiatric Problems: Yes (Schizophenic) Hx Family Tuberculosis: No unknown History Unknown: Yes Ethnicity: Living Status: Hx Family Cancer: No Hx Family Coronary Artery Disease: No Hx Family Congestive Heart Failure: No Hx Family Hypertension: Yes Hx Family Stroke: No Hx Family Diabetes: No Hx Family Seizures: No Hx Family Dementia: No Hx Family AIDS: No Hx Family HIV: No Hx Family COPD: No Hx Family Hepatitis: No Hx Family Psychiatric Problems: No Hx Family Tuberculosis: No Father Living Status: Sister History Unknown: Yes Living Status: Labs/Radiology/EKG Results - Lab Results Results: Laboratory Results - last 24 hr 10/27/16 10/27/16 10/27/16 21:35 21:35 21:35 WBC 3.9 L RBC 3.66 L Hgb 11.4 L Hct 32.4 L MCV 88.5 MCH 31.0 MCHC Differential 35.0 RDW 13.0 Plt Count 55 L MPV 7.5 Band Neutrophils % 1 Neutrophils (Manual) 57 Lymphocytes 30 Monocytes 6 Eosinophils 3 Basophils 1 Atypical Lymphocytes 2 Platelet Estimate DECREASED PLATELETS Platelet Morphology NORMAL RBC Morph Micro Appear NORMAL Sodium 122 L D Potassium 4.1 Chloride 99 Carbon Dioxide 25.2 Anion Gap 1.9 L BUN 10 Creatinine 0.7 Est GFR ( Amer) > 60.0 Est GFR (Non-Af Amer) > 60.0 BUN/Creatinine Ratio 14.3 Glucose 146 H Calcium 8.8 B-Natriuretic Peptide 14.9 - Radiology Results Results: CXR negative - EKG Interpretations Rate & Rhythm: normal sinus rhythm with a rate of 80 Comments:: Normal EKG ED Septic Shock - . Is Septic Shock (SBP<90, OR Lactate>4 mmol\L) present?: No - <6hrs of presentation: Vital Signs: Vital Signs - 8 hr 10/27/16 21:10 Temp 98.1 F HR 89 RR 18 BP 177/94 O2 Sat % 99 Reassessment (Disposition) - Reassessment Reassessment Condition:: Unchanged - Diagnosis Diagnosis:: COPD; hyponatremia; leukopenia; anemia; acute viral syndrome; thrombocytopenia - Patient Disposition Admitted to:: Med/Surg Spoke to:: Lisette Nair Admitting Medical Physician:: Lisette Nair Condition at Disposition:: Stable, Unchanged
[2016-10-27 21:57] LABS: WHITE BLOOD COUNT 3.9 Th/cmm (4.8-10.8)
[2016-10-27 22:01] LABS: ANION GAP 1.9 (7.0-16.0); BUN - UREA NITROGEN 10 mg/dL (7-25); BUN/CREATININE RATIO 14.3; CALCIUM SERUM 8.8 mg/dL (8.6-10.3); CARBON DIOXIDE 25.2 mEq/L (21.0-31.0); CHLORIDE 99 mEq/L (98-107); CREATININE - SERUM 0.7 mg/dL (0.7-1.3); GLUCOSE 146 mg/dL (70-105); POTASSIUM SERUM 4.1 mEq/L (3.5-5.1)
[2016-10-27 22:09] LABS: SODIUM SERUM 122 mEq/L (136-145)
[2016-10-27 22:17] LABS: BAND NEUTROPHILE 1 % (0-10); BASOPHIL 1 % (0-3); EOSINOPHIL 3 % (0-5); NEUTROPHILS 57 % (40-80); PLATELET ESTIMATE DECREASED PLATELETS (NORMAL); PLATELET MORPHOLOGY NORMAL (NORMAL); TOTAL CELLS COUNTED 100
[2016-10-27 22:19] LABS: PLATELET COUNT 55 Th/cmm (150-400)
[2016-10-27 23:42] VITALS: BP 171/78
[2016-10-28] MEDS ORDERED: Magnesium Hydroxide (MOM) 30 mL UDC PO PRN (00:18)
[2016-10-28] MEDS ORDERED: Maalox 30 mL Cup PO PRN (01:28)
[2016-10-28] MEDS: Azithromycin 500 MG in Sodium Chloride 0.9% 250 ML IV SCH (01:35)
[2016-10-28] MEDS: Sodium Chloride 0.9% 1,000 ML IV SCH ×2 (01:36→10:56)
[2016-10-28] MEDS: Hydrocodone/APAP 5mg/325mg Tab PO PRN ×3 (04:07→20:39)
[2016-10-28 06:57] LABS: ANION GAP 4.8 (7.0-16.0); BUN - UREA NITROGEN 10 mg/dL (7-25); BUN/CREATININE RATIO 14.3; CALCIUM SERUM 8.7 mg/dL (8.6-10.3); CARBON DIOXIDE 27.3 mEq/L (21.0-31.0); CHLORIDE 100 mEq/L (98-107); CREATININE - SERUM 0.7 mg/dL (0.7-1.3); GLUCOSE 112 mg/dL (70-105); POTASSIUM SERUM 4.1 mEq/L (3.5-5.1); SODIUM SERUM 128 mEq/L (136-145)
[2016-10-28 07:21] LABS: HEMATOCRIT 32.8 % (39.0-49.0); HEMOGLOBIN 11.4 gm/dL (12.6-17.4); MEAN CELL VOLUME 88.8 fl (80-99); MEAN CORPUSCULAR HEMOGLOBIN 30.9 pg (27.0-31.0); MEAN CORPUSCULAR HGB CONC 34.8 pg (28.0-36.0); MEAN PLATELET VOLUME 7.6 fl; RED BLOOD COUNT 3.69 Mil/cmm (3.80-5.80); RED CELL DISTRIBUTION WIDTH 13.2 % (11.5-20.0)
[2016-10-28 07:47] LABS: PLATELET COUNT 41 Th/cmm (150-400); WHITE BLOOD COUNT 3.4 Th/cmm (4.8-10.8)
[2016-10-28] MEDS: Ferrous Sulfate 325 MG TAB PO SCH (08:45)
[2016-10-28] MEDS: Benztropine 1 MG TAB PO SCH ×2 (08:45→16:43)
[2016-10-28] MEDS: Pantoprazole 40 mg EC Tab PO SCH (08:46)
[2016-10-28] MEDS: Lactulose 10 Gm/15 mL 30mL UDC PO SCH ×4 (08:47→21:34)
[2016-10-28] MEDS: Aspirin 81mg Chewable Tab PO SCH (08:47)
[2016-10-28] MEDS: Multivitamin Tab PO SCH (08:47)
[2016-10-28 09:37] LABS: EOSINOPHIL 6 % (0-5); NEUTROPHILS 52 % (40-80); PLATELET ESTIMATE DECREASED PLATELETS (NORMAL); PLATELET MORPHOLOGY PLATELET CLUMPS SEEN (NORMAL); TOTAL CELLS COUNTED 100
--- NOTE | 2016-10-28 09:57 | Diagnostic Imaging Report ---
CHEST X-RAY: AP view INDICATION: Cough COMPARISON: 05/18/2016 FINDINGS: There is faint 7 mm right midlung density adjacent to the medial scapular border. No focal consolidation or effusions. Heart size is normal. Degenerative changes of the spine are noted. IMPRESSION: Faint 7 mm right midlung density adjacent to the right scapular border. Although this may be due to superimposition of soft tissue and bronchovascular structures, infiltrate or less likely a small pulmonary nodule cannot be excluded. Recommend short-term follow-up probably with CT of the chest examination. No focal consolidation identified.
--- NOTE | 2016-10-28 10:35 | Consultation ---
Consult Note - Consult Note Service Date: 10/28/16 Referring Physician: Lisette Nair Consult Note: PHYSICIAN Consultation Note: Date of Admission: 10/27/16 Purpose of Consultation: Chief Complaint:Patient CARLOS EDUARDO ZUNIGA was admitted to location Medical/ Surgical Unit I with SORE THROAT. History of Present Illness: 65 y male with multiple medical conditions presented to the ED for loss of voice and productive cough , producing clear phlegm for the last 2 weeks. It is associated with upper abdominal pain during cough. He has had no fever or chest pains. On initial evaluation, his temperature was 98.1 degree F and WBC Count was 3,900. CXR showed no new change. Past Medical History: COPD, asthma, HTN, CAD, Osteoarthritis. history of left hip ORIF Allergies Allergy/AdvReac Type Severity Reaction Status Date / Time No Known Allergies Allergy Verified 10/27/16 21:09 Vital Signs Temp 97.3 F 10/28/16 08:00 Pulse 80 10/28/16 08:46 Resp 19 10/28/16 08:00 BP 146/81 10/28/16 08:46 Pulse Ox 98 10/28/16 08:00 Intake & Output 10/27/16 10/28/16 10/28/16 18:59 06:59 18:59 Intake Total 250 Balance 250 Intake: Intake, IV Amount 250 Azithromycin 500 mg In 250 Sodium Chloride 0.9% 250 ml @ 250 mls/hr IV Q24HR [facility] Rx#:[id number] Laboratory Results - last 24 hr 10/28/16 10/28/16 05:50 05:50 WBC 3.4 L RBC 3.69 L Hgb 11.4 L Hct 32.8 L MCV 88.8 MCH 30.9 MCHC Differential 34.8 RDW 13.2 Plt Count 41 L D MPV 7.6 Neutrophils (Manual) 52 Lymphocytes 32 Monocytes 10 Eosinophils 6 H Platelet Estimate DECREASED PLATELETS Platelet Morphology PLATELET CLUMPS SEEN RBC Morph Micro Appear NORMAL Sodium 128 L Potassium 4.1 Chloride 100 Carbon Dioxide 27.3 Anion Gap 4.8 L BUN 10 Creatinine 0.7 Est GFR ( Amer) > 60.0 Est GFR (Non-Af Amer) > 60.0 BUN/Creatinine Ratio 14.3 Glucose 112 H Calcium 8.7 Home Medication Medication Instructions Recorded Type Acetaminophen [Tylenol] 650 mg PO Q4HR PRN 10/24/14 History Aluminum Hydroxide/Magnesium1 30 ml PO Q4HR PRN 10/24/14 History [Mylanta 355 ml] Lorazepam [Ativan] 1 mg PO Q6H PRN 10/24/14 History Naproxen [Naprosyn] 500 mg PO Q12H PRN 10/24/14 History Aspirin [Aspirin Chewable] 81 mg PO DAILY 05/18/16 History Clonidine HCl [Catapres] 0.1 mg PO Q6HR PRN 05/18/16 History Ferrous Sulfate [Iron] 325 mg PO DAILY 05/18/16 History Hydrocodone/APAP 5mg/325mg [[place] 1 tab PO Q8H PRN 05/18/16 History 5mg/325mg] Lactulose 30 gm PO QID 05/18/16 History Lisinopril 20 mg PO DAILY 05/18/16 History Multivitamin [Theragran] 1 tab PO DAILY 05/18/16 History Temazepam [Restoril*] 15 mg PO HS PRN 05/18/16 History Amitriptyline [Elavil*] 50 mg PO HS 06/16/16 History Benztropine [Cogentin*] 1 mg PO BID 06/16/16 History Esomeprazole Magnesium [Nexium] 40 mg PO DAILY 06/16/16 History Haloperidol [Haldol*] 5 mg PO TID 06/16/16 History Magnesium Hydroxide [Milk of 30 ml PO HS PRN 06/16/16 History Magnesia] QUEtiapine Fumarate [SEROquel] 50 mg PO HS 06/16/16 History Current Medications Generic Name Dose Route Start [facility] Reason Stop Dose Admin Acetaminophen 650 mg 10/28/16 00:18 10/28/16 09:01 Tylenol PO 12/27/16 00:17 650 mg Q4HR PRN Administration pain and fever Acetaminophen/Hydrocodone Bitart 1 tab 10/28/16 00:18 10/28/16 04:07 [place] 5mg/325mg PO 12/27/16 00:17 1 tab Q8H PRN Administration Pain (Moderate) Al Hydrox/Mg Hydrox/Simethicone 30 ml 10/28/16 01:28 Maalox PO 12/27/16 01:27 Q4HR PRN GI DISTRESS Amitriptyline HCl 50 mg 10/28/16 21:00 Elavil PO 12/27/16 20:59 HS [facility] Protocol Aspirin 81 mg 10/28/16 09:00 10/28/16 08:47 Aspirin Chewable PO 12/27/16 08:59 81 mg DAILY [facility] Administration Benztropine Mesylate 1 mg 10/28/16 09:00 10/28/16 08:45 Cogentin PO 12/27/16 08:59 1 mg BID [facility] Administration Clonidine HCl 0.1 mg 10/28/16 00:18 Catapres PO 12/27/16 00:17 Q6HR PRN BP MAINTENANCE (PER PROTOCOL) Ferrous Sulfate 325 mg 10/28/16 09:00 10/28/16 08:45 Iron PO 12/27/16 08:59 325 mg DAILY [facility] Administration Haloperidol 5 mg 10/28/16 09:00 Haldol PO 12/27/16 08:59 TID [facility] Protocol Sodium Chloride 1,000 mls @ 125 mls/hr 10/28/16 00:15 10/28/16 01:36 Nacl 0.9% IV 12/27/16 00:14 125 mls/hr .Q8H [facility] Administration Azithromycin 500 mg/ Sodium 250 mls @ 250 mls/hr 10/28/16 01:00 10/28/16 02: 40 Chloride IV 12/27/16 00:59 Infused Q24HR [facility] Infusion Lactulose 30 gm 10/28/16 09:00 10/28/16 08:47 Cephulac PO 12/27/16 08:59 30 gm QID [facility] Administration Lisinopril 20 mg 10/28/16 09:00 10/28/16 08:46 Zestril PO 12/27/16 08:59 20 mg DAILY [facility] Administration Lorazepam 1 mg 10/28/16 00:18 Ativan PO 12/27/16 00:17 Q6H PRN Anxiety Protocol Magnesium Hydroxide 30 ml 10/28/16 00:18 Milk Of Magnesia PO 12/27/16 00:17 HS PRN Constipation Multivitamins/Vitamin C 1 tab 10/28/16 09:00 10/28/16 08:47 Theragran PO 12/27/16 08:59 1 tab DAILY [facility] Administration Naproxen 500 mg 10/28/16 00:18 Naprosyn PO 12/27/16 00:17 Q12H PRN Pain (Mild) Pantoprazole Sodium 40 mg 10/28/16 09:00 10/28/16 08:46 Protonix PO 12/27/16 08:59 40 mg DAILY [facility] Administration Quetiapine Fumarate 50 mg 10/28/16 21:00 Seroquel PO 12/27/16 20:59 HS [facility] Protocol Temazepam 15 mg 10/28/16 00:18 Restoril PO 12/27/16 00:17 HS PRN Insomnia Protocol Review of Systems: A 12 point ROS was reviewed with the pertinent positive and negatives noted in the HPI. Social History Smoking Status Unknown if ever smoked Drug Use No Alcohol Use No Family Medical History Family Medical History Start: 10/27/16 22: 48 Freq: ONCE Status: Active Document 10/27/16 23:30 MSIY (Rec: 10/28/16 02:57 MSIY [id number]) Family Medical History Sister History Unknown Yes Living Status Father History Unknown Yes Living Status Mother History Unknown Yes Ethnicity Non- Living Status Hx Family Cancer Yes Hx Family Coronary Artery Disease No Hx Family Congestive Heart Failure No Hx Family Hypertension Yes Hx Family Stroke No Hx Family Diabetes No Hx Family Seizures No Hx Family Dementia No Hx Family AIDS No Hx Family HIV No Hx Family COPD No Hx Family Hepatitis No Hx Family Psychiatric Problems No Hx Family Tuberculosis No Physical Exam: General: COmfortable. not in any acute distress. HEENT: Eyes: pallor present, no icterus, Pupil: EOMI Bilaterally, PERRLA Bilaterally. Oral cavity: moist pink tongue, oropharynx is clear. Head is normocephalic, atraumatic on inspection. Neck: Supple, no JVD, no carotid bruit. No lynmphadenopathy. Cardio: +S1/S2 Auscultated, RRR, no murmurs/rubs/gallops noted. Respiratory: Clear to Auscultate Bilaterally. Abdominal: Soft, Nondistended, Nontender to palpation x 4 quadrants Extremities: No Edema noted in the lower extremities Neurological: Alert and Oriented x3, No Acute Distress, Cranial Nerves II-XII intact bilaterally, Gait Steady, No Focal Deficits noted. Impression: 1. COPD exacerbation. 2. Bronchitis. 3. chronic pharyngitis. 4. HTN. 5. chronic pain syndrome. Recommendations: Continue same treatment. abx: Azithromycin. Signed, Justino Chand M.D. 10/28/[id number]
--- NOTE | 2016-10-28 10:47 | Consultation ---
Consult Note - Consult Note Service Date: 10/28/16 Referring Physician: Lisette Nair Consult Note: PHYSICIAN Consultation Note: Date of Admission: 10/27/16 Purpose of Consultation: Chief Complaint:Patient CARLOS EDUARDO ZUNIGA was admitted to location Medical/ Surgical Unit I with SORE THROAT. History of Present Illness: 65 y male with multiple medical conditions presented to the ED for loss of voice and productive cough , producing clear phlegm for the last 2 weeks. It is associated with upper abdominal pain during cough. He has had no fever or chest pains. On initial evaluation, his temperature was 98.1 degree F and WBC Count was 3,900. CXR showed no new change. Past Medical History: COPD, asthma, HTN, Osteoarthritis. history of left hip ORIF. Allergies Allergy/AdvReac Type Severity Reaction Status Date / Time No Known Allergies Allergy Verified 10/27/16 21:09 Vital Signs Temp 97.3 F 10/28/16 08:00 Pulse 80 10/28/16 08:46 Resp 19 10/28/16 08:00 BP 146/81 10/28/16 08:46 Pulse Ox 98 10/28/16 08:00 Intake & Output 10/27/16 10/28/16 10/28/16 18:59 06:59 18:59 Intake Total 250 Balance 250 Intake: Intake, IV Amount 250 Azithromycin 500 mg In 250 Sodium Chloride 0.9% 250 ml @ 250 mls/hr IV Q24HR [facility] Rx#:[id number] Laboratory Results - last 24 hr 10/28/16 10/28/16 05:50 05:50 WBC 3.4 L RBC 3.69 L Hgb 11.4 L Hct 32.8 L MCV 88.8 MCH 30.9 MCHC Differential 34.8 RDW 13.2 Plt Count 41 L D MPV 7.6 Neutrophils (Manual) 52 Lymphocytes 32 Monocytes 10 Eosinophils 6 H Platelet Estimate DECREASED PLATELETS Platelet Morphology PLATELET CLUMPS SEEN RBC Morph Micro Appear NORMAL Sodium 128 L Potassium 4.1 Chloride 100 Carbon Dioxide 27.3 Anion Gap 4.8 L BUN 10 Creatinine 0.7 Est GFR ( Amer) > 60.0 Est GFR (Non-Af Amer) > 60.0 BUN/Creatinine Ratio 14.3 Glucose 112 H Calcium 8.7 Home Medication Medication Instructions Recorded Type Acetaminophen [Tylenol] 650 mg PO Q4HR PRN 10/24/14 History Aluminum Hydroxide/Magnesium1 30 ml PO Q4HR PRN 10/24/14 History [Mylanta 355 ml] Lorazepam [Ativan] 1 mg PO Q6H PRN 10/24/14 History Naproxen [Naprosyn] 500 mg PO Q12H PRN 10/24/14 History Aspirin [Aspirin Chewable] 81 mg PO DAILY 05/18/16 History Clonidine HCl [Catapres] 0.1 mg PO Q6HR PRN 05/18/16 History Ferrous Sulfate [Iron] 325 mg PO DAILY 05/18/16 History Hydrocodone/APAP 5mg/325mg [[place] 1 tab PO Q8H PRN 05/18/16 History 5mg/325mg] Lactulose 30 gm PO QID 05/18/16 History Lisinopril 20 mg PO DAILY 05/18/16 History Multivitamin [Theragran] 1 tab PO DAILY 05/18/16 History Temazepam [Restoril*] 15 mg PO HS PRN 05/18/16 History Amitriptyline [Elavil*] 50 mg PO HS 06/16/16 History Benztropine [Cogentin*] 1 mg PO BID 06/16/16 History Esomeprazole Magnesium [Nexium] 40 mg PO DAILY 06/16/16 History Haloperidol [Haldol*] 5 mg PO TID 06/16/16 History Magnesium Hydroxide [Milk of 30 ml PO HS PRN 06/16/16 History Magnesia] QUEtiapine Fumarate [SEROquel] 50 mg PO HS 06/16/16 History Current Medications Generic Name Dose Route Start Last Admin Trade Name [facility] PRN Reason Stop Dose Admin Acetaminophen 650 mg 10/28/16 00:18 10/28/16 09:01 Tylenol PO 12/27/16 00:17 650 mg Q4HR PRN Administration pain and fever Acetaminophen/Hydrocodone Bitart 1 tab 10/28/16 00:18 10/28/16 04:07 [place] 5mg/325mg PO 12/27/16 00:17 1 tab Q8H PRN Administration Pain (Moderate) Al Hydrox/Mg Hydrox/Simethicone 30 ml 10/28/16 01:28 Maalox PO 12/27/16 01:27 Q4HR PRN GI DISTRESS Amitriptyline HCl 50 mg 10/28/16 21:00 Elavil PO 12/27/16 20:59 HS [facility] Protocol Aspirin 81 mg 10/28/16 09:00 10/28/16 08:47 Aspirin Chewable PO 12/27/16 08:59 81 mg DAILY [facility] Administration Benztropine Mesylate 1 mg 10/28/16 09:00 10/28/16 08:45 Cogentin PO 12/27/16 08:59 1 mg BID [facility] Administration Clonidine HCl 0.1 mg 10/28/16 00:18 Catapres PO 12/27/16 00:17 Q6HR PRN BP MAINTENANCE (PER PROTOCOL) Ferrous Sulfate 325 mg 10/28/16 09:00 10/28/16 08:45 Iron PO 12/27/16 08:59 325 mg DAILY [facility] Administration Haloperidol 5 mg 10/28/16 09:00 Haldol PO 12/27/16 08:59 TID [facility] Protocol Sodium Chloride 1,000 mls @ 125 mls/hr 10/28/16 00:15 10/28/16 01:36 Nacl 0.9% IV 12/27/16 00:14 125 mls/hr .Q8H [facility] Administration Azithromycin 500 mg/ Sodium 250 mls @ 250 mls/hr 10/28/16 01:00 10/28/16 02: 40 Chloride IV 12/27/16 00:59 Infused Q24HR [facility] Infusion Lactulose 30 gm 10/28/16 09:00 10/28/16 08:47 Cephulac PO 12/27/16 08:59 30 gm QID [facility] Administration Lisinopril 20 mg 10/28/16 09:00 10/28/16 08:46 Zestril PO 12/27/16 08:59 20 mg DAILY [facility] Administration Lorazepam 1 mg 10/28/16 00:18 Ativan PO 12/27/16 00:17 Q6H PRN Anxiety Protocol Magnesium Hydroxide 30 ml 10/28/16 00:18 Milk Of Magnesia PO 12/27/16 00:17 HS PRN Constipation Multivitamins/Vitamin C 1 tab 10/28/16 09:00 10/28/16 08:47 Theragran PO 12/27/16 08:59 1 tab DAILY [facility] Administration Naproxen 500 mg 10/28/16 00:18 Naprosyn PO 12/27/16 00:17 Q12H PRN Pain (Mild) Pantoprazole Sodium 40 mg 10/28/16 09:00 10/28/16 08:46 Protonix PO 12/27/16 08:59 40 mg DAILY [facility] Administration Quetiapine Fumarate 50 mg 10/28/16 21:00 Seroquel PO 12/27/16 20:59 HS [facility] Protocol Temazepam 15 mg 10/28/16 00:18 Restoril PO 12/27/16 00:17 HS PRN Insomnia Protocol Review of Systems: A 12 point ROS was reviewed with the pertinent positive and negatives noted in the HPI. Social History Lives at [facility]. Smoking Status Unknown if ever smoked Drug Use No Alcohol Use No Family Medical History History Unknown Yes Living Status Father History Unknown Yes Living Status Mother History Unknown Yes Ethnicity Non- Living Status Hx Family Cancer Yes Hx Family Coronary Artery Disease No Hx Family Congestive Heart Failure No Hx Family Hypertension Yes Hx Family Stroke No Hx Family Diabetes No Hx Family Seizures No Hx Family Dementia No Hx Family AIDS No Hx Family HIV No Hx Family COPD No Hx Family Hepatitis No Hx Family Psychiatric Problems No Hx Family Tuberculosis No Physical Exam: General: COmfortable. not in any acute distress. HEENT: Eyes: pallor present, no icterus, Pupil: EOMI Bilaterally, PERRLA Bilaterally. Oral cavity: moist pink tongue, oropharynx is clear. Head is normocephalic, atraumatic on inspection. Neck: Supple, no JVD, no carotid bruit. No lynmphadenopathy. Cardio: +S1/S2 Auscultated, RRR, no murmurs/rubs/gallops noted. Respiratory: Clear to Auscultate Bilaterally. Abdominal: Soft, Nondistended, Nontender to palpation x 4 quadrants Extremities: No Edema noted in the lower extremities Neurological: Alert and Oriented x3, No Acute Distress, Cranial Nerves II-XII intact bilaterally, Gait Steady, No Focal Deficits noted. Impression: 1. COPD exacerbation. 2. Bronchitis. 3. chronic pharyngitis. 4. HTN. 5. chronic pain syndrome. Recommendations: Continue same treatment. abx: Azithromycin. Signed, Justino Chand M.D. [id number]
[2016-10-28] MEDS: Guaifenesin DM 10 ML UDC PO PRN ×2 (12:12→21:46)
--- NOTE | 2016-10-28 13:35 | Admit Criteria Form ---
Admit Criteria Forms - Admit Criteria Diagnosis: COPD Clinical Indications for Admission to Inpatient Care (Place 'X' for any and all applicable criteria): Admission is indicated for ANY ONE of the following (1)(2)(3): [X ]I. Acute exacerbation by high-risk comorbidity (e.g., pneumonia, dysrhythmia, heart failure, pleural effusion, pneumothorax) or severe underlying COPD (e.g., steroid dependent) [ ]II. Inpatient admission required rather than observation care (see Chronic Obstructive Pulmonary Disease: Observation Care) because of ANY ONE of the following: [ ]a) New or pre-existing signs or symptoms of COPD (eg, dyspnea or Tachypnea at rest or with minimal activity) that persist despite outpatient and observation care treatment [ ]b) New-onset hypoxemia (room air SaO2 less than 90%, PO2 less than 60 mm Hg (8.0 kPa)) that persists despite outpatient and observation care treatment [ ]c) Worsening of pre-existing hypoxemia (eg, new or increased requirement for supplemental oxygen to maintain oxygenation at baseline level) that persists despite outpatient and observation care treatment, with oxygen treatment needs performable only in acute inpatient setting [ ]d) Hypercarbia (PCO2 greater than 40 mm Hg (5.3 kPa))-induced respiratory acidosis (pH less than 7.35) that persists despite outpatient and observation care treatment [ ]e) Supplemental oxygen or respiratory treatments for over 24 hours that are performable only in acute inpatient setting [ ]f) Chest tube placement with active evacuation (e.g., suction, drainage) (5) [ ]g) Other condition, treatment or monitoring requiring inpatient admission [ ]III. Planned invasive surgical or diagnostic procedures requiring acute- care hospitalization [ ]IV. Acute respiratory failure (e.g., uncompensated hypercarbia, severe hypoxemia) [ ]V. Severe comorbid condition (e.g., severe steroid myopathy, acute vertebral fracture) that has acutely worsened pulmonary function [ ]. Confusion state, lethargy, obtundation, stupor or coma Extended stay beyond goal length of stay may be needed for (31)(32): [ ]a ) Respiratory Failure. [ ]b) Severe or persisting hypoxemia or hypercarbia [ ]c) Severe or persistent dyspnea [ ]d) Comorbidities (e.g. chronic heart failure, atrial fibrillation with rapid response, pneumonia) [ ]e) Malnutrition The original [facility] content created by [facility] has been revised. The portions of the content which have been revised are identified through the use of italic text or in bold, and [facility] has neither reviewed nor approved the modified material. All other unmodified content is copyright [facility]. Please see references footnoted in the original [facility] edition 2016 Admit Criteria Met?: Yes
[2016-10-29] MEDS: Sodium Chloride 0.9% 1,000 ML IV SCH ×2 (00:13→17:44)
[2016-10-29] MEDS: Azithromycin 500 MG in Sodium Chloride 0.9% 250 ML IV SCH (02:36)
[2016-10-29] MEDS: Pantoprazole 40 mg EC Tab PO SCH ×2 (09:07→17:38)
[2016-10-29] MEDS: Multivitamin Tab PO SCH (09:07)
[2016-10-29] MEDS: Benztropine 1 MG TAB PO SCH ×2 (09:07→17:38)
[2016-10-29] MEDS: Aspirin 81mg Chewable Tab PO SCH (09:07)
[2016-10-29] MEDS: Lactulose 10 Gm/15 mL 30mL UDC PO SCH ×4 (09:08→21:13)
[2016-10-29] MEDS: Ferrous Sulfate 325 MG TAB PO SCH (09:09)
--- NOTE | 2016-10-29 10:06 | Diagnostic Imaging Report ---
CHEST X-RAY: AP view INDICATION: Pulmonary nodule COMPARISON: Chest x-ray 10/27/2016 FINDINGS: The previous faint opacity of the right midlung is not visualized on this exam. No focal consolidation or effusions. Chronic lung changes are noted. Heart size is normal. IMPRESSION: The previously opacity of the right midlung is not visualized on this exam. This may have been due to superimposition of bronchovascular structures. If clinically warranted, short-term CT chest follow-up would again provided for additional detail and assessment. No focal consolidation identified. Chronic lung changes and possible COPD.
[2016-10-29] MEDS: Hydrocodone/APAP 5mg/325mg Tab PO PRN ×2 (10:59→23:20)
--- NOTE | 2016-10-29 13:42 | Infectious Disease Prog Note ---
Infectious Disease Subjective - Review of Systems Service Date: 10/29/16 Subjective: There is no new change. hoarseness of voice persists. Infectious Disease Objective - Results Result Diagrams: 10/28/16 05:50 10/28/16 05:50 Recent Labs: Laboratory Last Values WBC 3.4 Th/cmm (4.8-10.8) L 10/28/16 05:50 RBC 3.69 Mil/cmm (3.80-5.80) L 10/28/16 05:50 Hgb 11.4 gm/dL (12.6-17.4) L 10/28/16 05:50 Hct 32.8 % (39.0-49.0) L 10/28/16 05:50 MCV 88.8 fl (80-99) 10/28/16 05:50 MCH 30.9 pg (27.0-31.0) 10/28/16 05:50 MCHC Differential 34.8 pg (28.0-36.0) 10/28/16 05:50 RDW 13.2 % (11.5-20.0) 10/28/16 05:50 Plt Count 41 Th/cmm (150-400) L D 10/28/16 05:50 MPV 7.6 fl 10/28/16 05:50 Band Neutrophils % 1 % (0-10) 10/27/16 21:35 Neutrophils (Manual) 52 % (40-80) 10/28/16 05:50 Lymphocytes 32 % (20-50) 10/28/16 05:50 Monocytes 10 % (2-10) 10/28/16 05:50 Eosinophils 6 % (0-5) H 10/28/16 05:50 Basophils 1 % (0-3) 10/27/16 21:35 Atypical Lymphocytes 2 % 10/27/16 21:35 Platelet Estimate DECREASED PLATELETS (NORMAL) 10/28/16 05:50 Platelet Morphology PLATELET CLUMPS SEEN (NORMAL) 10/28/16 05:50 RBC Morph Micro Appear NORMAL (NORMAL) 10/28/16 05:50 Sodium 128 mEq/L (136-145) L 10/28/16 05:50 Potassium 4.1 mEq/L (3.5-5.1) 10/28/16 05:50 Chloride 100 mEq/L (98-107) 10/28/16 05:50 Carbon Dioxide 27.3 mEq/L (21.0-31.0) 10/28/16 05:50 Anion Gap 4.8 (7.0-16.0) L 10/28/16 05:50 BUN 10 mg/dL (7-25) 10/28/16 05:50 Creatinine 0.7 mg/dL (0.7-1.3) 10/28/16 05:50 Est GFR ( Amer) > 60.0 ml/min (>90) 10/28/16 05:50 Est GFR (Non-Af Amer) > 60.0 ml/min 10/28/16 05:50 BUN/Creatinine Ratio 14.3 10/28/16 05:50 Glucose 112 mg/dL (70-105) H 10/28/16 05:50 Calcium 8.7 mg/dL (8.6-10.3) 10/28/16 05:50 B-Natriuretic Peptide 14.9 pg/mL (5.0-100.0) 10/27/16 21:35 HIV 1&2 Antibody Screen NEGATIVE (NEG) 10/28/16 05:50 - Physical Exam Vitals and I&O: Vital Signs Temp 97.4 F 10/29/16 11:38 Pulse 106 10/29/16 11:38 Resp 19 10/29/16 11:38 BP 161/95 10/29/16 11:38 Pulse Ox 98 10/29/16 11:38 Intake & Output 10/28/16 10/29/16 10/29/16 18:59 06:59 18:59 Intake Total 1999 Balance 1999 Intake: Intake, IV Amount 1999 Sodium Chloride 0.9% 1999 000 ml @ 125 mls/hr IV . Q8H [facility] Rx#:[id number] Active Medications: Current Medications Acetaminophen (Tylenol) 650 mg PO Q4HR PRN PRN Reason: pain and fever Stop: 12/27/16 00:17 Last Admin: 10/28/16 14:44 Dose: 650 mg Acetaminophen/Hydrocodone Bitart ([place] 5mg/325mg) 1 tab PO Q8H PRN PRN Reason: Pain (Moderate) Stop: 12/27/16 00:17 Last Admin: 10/29/16 10:59 Dose: 1 tab Al Hydrox/Mg Hydrox/Simethicone (Maalox) 30 ml PO Q4HR PRN PRN Reason: GI DISTRESS Stop: 12/27/16 01:27 Amitriptyline HCl (Elavil) 50 mg PO HS [facility] PRN Reason: Protocol Stop: 12/27/16 20:59 Aspirin (Aspirin Chewable) 81 mg PO DAILY [facility] Stop: 12/27/16 08:59 Last Admin: 10/29/16 09:07 Dose: 81 mg Benzocaine/Menthol (Cepacol) 1 liya MM Q4HR PRN PRN Reason: Sore Throat Stop: 12/27/16 11:36 Last Admin: 10/29/16 02:23 Dose: 1 liya Benztropine Mesylate (Cogentin) 1 mg PO BID [facility] Stop: 12/27/16 08:59 Last Admin: 10/29/16 09:07 Dose: 1 mg Clonidine HCl (Catapres) 0.1 mg PO Q6HR PRN PRN Reason: BP SYS>160 Stop: 12/27/16 00:17 Ferrous Sulfate (Iron) 325 mg PO DAILY [facility] Stop: 12/27/16 08:59 Last Admin: 10/29/16 09:09 Dose: 325 mg Guaifenesin/Dextromethorphan (Robitussin Dm) 10 ml PO Q6HR PRN PRN Reason: Cough Stop: 12/27/16 11:35 Last Admin: 10/28/16 21:46 Dose: 10 ml Haloperidol (Haldol) 5 mg PO TID [facility] PRN Reason: Protocol Stop: 12/27/16 08:59 Last Admin: 10/29/16 13:27 Dose: 5 mg Sodium Chloride (Nacl 0.9%) 1,000 mls @ 125 mls/hr IV .Q8H [facility] Stop: 12/27/16 00:14 Last Admin: 10/29/16 00:13 Dose: 125 mls/hr Azithromycin 500 mg/ Sodium (Chloride) 250 mls @ 250 mls/hr IV Q24HR [facility] Stop: 12/27/16 00:59 Last Admin: 10/29/16 02:36 Dose: 250 mls/hr Lactulose (Cephulac) 30 gm PO QID [facility] Stop: 12/27/16 08:59 Last Admin: 10/29/16 12:30 Dose: Not Given Lisinopril (Zestril) 20 mg PO DAILY [facility] Stop: 12/27/16 08:59 Last Admin: 10/29/16 09:08 Dose: 20 mg Lorazepam (Ativan) 1 mg PO Q6H PRN; Protocol PRN Reason: Anxiety Stop: 12/27/16 00:17 Last Admin: 10/28/16 12:12 Dose: 1 mg Magnesium Hydroxide (Milk Of Magnesia) 30 ml PO HS PRN PRN Reason: Constipation Stop: 12/27/16 00:17 Multivitamins/Vitamin C (Theragran) 1 tab PO DAILY [facility] Stop: 12/27/16 08:59 Last Admin: 10/29/16 09:07 Dose: 1 tab Naproxen (Naprosyn) 500 mg PO TIDWM [facility] Stop: 12/27/16 16:59 Last Admin: 10/29/16 12:28 Dose: 500 mg Pantoprazole Sodium (Protonix) 40 mg PO DAILY [facility] Stop: 12/27/16 08:59 Last Admin: 10/29/16 09:07 Dose: 40 mg Quetiapine Fumarate (Seroquel) 50 mg PO HS [facility] PRN Reason: Protocol Stop: 12/27/16 20:59 Sodium Chloride (Nacl Tab) 2 gm PO DAILY [facility] Stop: 12/27/16 11:44 Last Admin: 10/29/16 09:07 Dose: 2 gm Temazepam (Restoril) 15 mg PO HS PRN; Protocol PRN Reason: Insomnia Stop: 12/27/16 00:17 General: no acute distress, cachectic HEENT: atraumatic, normocephalic, PERRLA, EOMI Neck: supple Cardiovascular: S1S2, regular Lungs: clear to auscultation bilaterally, clear to percussion Abdomen: soft, no tender, no distended Extremities: no cyanosis, no clubbing, no edema Neurological: awake, alert, oriented Skin: intact Infectious Disease Assmt/Plan - Problem List Patient Problems: All Active Problems Acute exacerbation of chronic obstructive pulmonary disease (COPD) (Acute) J44.1 H/O chronic hepatitis (Acute) Z87.19 Hepatic encephalopathy (Acute) K72.90 Pneumonia, organism unspecified (Acute) J18.9 S/P FALLL...POSS. HIP FX (Acute) - Assessment Assessment: Impression: 1. COPD exacerbation. 2. Bronchitis. 3. chronic pharyngitis. 4. HTN. 5. chronic pain syndrome. Recommendations: Continue same treatment. abx: Azithromycin.
[2016-10-29] MEDS: Albuterol/Ipratropium Neb 3 ML AERS HHN SCH (19:08)
[2016-10-29] MEDS: Budesonide 0.5 Mg/2 mL Ud HHN SCH (19:10)
[2016-10-30] MEDS: Sodium Chloride 0.9% 1,000 ML IV SCH ×6 (00:48→16:49)
[2016-10-30] MEDS: Azithromycin 500 MG in Sodium Chloride 0.9% 250 ML IV SCH (01:13)
--- NOTE | 2016-10-30 01:35 | Consultation ---
DATE OF CONSULTATION: 10/29/2016 REASON FOR CONSULTATION: Shortness of breath with coughing and wheezing. HISTORY OF PRESENT ILLNESS: This is a 65-year-old gentleman who basically lives in [facility] and basically was admitted up here after getting a cold with started having some hoarseness of voice associated with some coughing and some wheezing. This went on for at least about a week to 10 days with not too much of his sputum production. Subsequently, as the symptom persisted, the patient came to the hospital for further care and necessary treatment. The patient does complain of generalized pain. No pleuritic chest pain. Denied of any fever; he does not recall and denies of any swelling of the legs, PND, orthopnea, etc. The patient has some questionable history of sleep apnea syndrome. PAST MEDICAL HISTORY: He has history of hypertension, COPD, gastroesophageal reflux disease, end-stage renal disease, hepatitis, anemia, previous history of congestive heart failure, schizoaffective and depression. SMOKING HISTORY: More than [id number] smoker. Claims to be on no smoking for the last couple of months. ALLERGIES: The patient denies of any allergies to any specific medication. WORK HISTORY: Has not worked for a long time. PHYSICAL EXAMINATION: GENERAL: This is an elderly looking gentleman, awake, alert and oriented, though not in any acute distress. VITAL SIGNS: The patient's recorded vitals: Temperature is 97.6, blood pressure 161/95 and saturation is 98%. HEENT: Examination of the head is essentially unremarkable. Pupils appear to be equal and reacting to light. Conjunctivae are slightly pallor. Oral cavity shows edentulous, otherwise unremarkable. NECK: Very short, significant fatty tissue around the upper portion, anterior neck and no nodes in the neck could be palpated. CHEST: Finding shows slightly dorsal kyphosis on auscultation, occasional wheezing with diminished air entry. HEART: Regular. ABDOMEN: Slightly protuberant. EXTREMITIES: Shows no peripheral edema. No cyanosis or clubbing could be appreciated. CHEST X-RAY: Shows significant hyperinflated lung. MEDICATIONS: The patient's current medications are multiple including haloperidol, lisinopril, lorazepam, magnesium as well as Naprosyn, pantoprazole and also sleeping pill as well as taking clonidine on p.r.n. basis. IMPRESSION: 1. The patient has acute exacerbation of chronic obstructive pulmonary disease. 2. Persistent hoarseness ____, may be secondary gastroesophageal reflux. 3. Suspect associated obstructive sleep apnea syndrome, complicated by psychiatric illness as well as multiple psychotropic medications. PLANS AND SUGGESTIONS: 1. We will add increased pantoprazole to b.i.d. 2. We will give ____ aggressively, also add inhaled steroid and I checked the need for O2 and we will see how he does in next 24-48 hours and go from there. JOB# [id number]
[2016-10-30] MEDS: Albuterol/Ipratropium Neb 3 ML AERS HHN SCH ×4 (06:56→19:31)
[2016-10-30] MEDS: Budesonide 0.5 Mg/2 mL Ud HHN SCH ×2 (06:57→19:30)
[2016-10-30 07:16] LABS: % EOSINOPHILS 5.4 % (0.0-5.0); % LYMPHOCYTES 31.5 % (20.0-50.0); % MONOCYTES 10.8 % (2.0-10.0); % NEUTROPHILS 51.3 % (40.0-80.0); HEMATOCRIT 34.5 % (39.0-49.0); HEMOGLOBIN 11.8 gm/dL (12.6-17.4); MEAN CELL VOLUME 88.3 fl (80-99); MEAN CORPUSCULAR HEMOGLOBIN 30.3 pg (27.0-31.0); MEAN CORPUSCULAR HGB CONC 34.4 pg (28.0-36.0); MEAN PLATELET VOLUME 7.9 fl; PLATELET COUNT 40 Th/cmm (150-400); RED CELL DISTRIBUTION WIDTH 13.2 % (11.5-20.0); WHITE BLOOD COUNT 3.8 Th/cmm (4.8-10.8)
[2016-10-30 08:31] LABS: TSH 3.3 uIU/ml (0.34-5.60)
[2016-10-30 08:45] LABS: ABG SOURCE Arterial; HCO3 25.7 mEq/L (20.0-26.0); pH 7.43 (7.35-7.45)
[2016-10-30 08:46] LABS: CRITICAL VALUES REPORTED BY SH; FIO2 21
[2016-10-30] MEDS: Pantoprazole 40 mg EC Tab PO SCH ×2 (08:53→16:43)
[2016-10-30] MEDS: Aspirin 81mg Chewable Tab PO SCH (08:53)
[2016-10-30] MEDS: Benztropine 1 MG TAB PO SCH ×2 (08:53→16:42)
[2016-10-30] MEDS: Multivitamin Tab PO SCH (08:53)
[2016-10-30] MEDS: Ferrous Sulfate 325 MG TAB PO SCH (08:53)
--- NOTE | 2016-10-30 10:04 | General Progress Note ---
Subjective - Review of Systems Events since last encounter: no distress Objective - Results Result Diagrams: 10/30/16 06:42 10/28/16 05:50 Recent Labs: Laboratory Last Values WBC 3.8 Th/cmm (4.8-10.8) L 10/30/16 06:42 RBC 3.90 Mil/cmm (3.80-5.80) 10/30/16 06:42 Hgb 11.8 gm/dL (12.6-17.4) L 10/30/16 06:42 Hct 34.5 % (39.0-49.0) L 10/30/16 06:42 MCV 88.3 fl (80-99) 10/30/16 06:42 MCH 30.3 pg (27.0-31.0) 10/30/16 06:42 MCHC Differential 34.4 pg (28.0-36.0) 10/30/16 06:42 RDW 13.2 % (11.5-20.0) 10/30/16 06:42 Plt Count 40 Th/cmm (150-400) L 10/30/16 06:42 MPV 7.9 fl 10/30/16 06:42 Neutrophils % 51.3 % (40.0-80.0) 10/30/16 06:42 Band Neutrophils % 1 % (0-10) 10/27/16 21:35 Lymphocytes % 31.5 % (20.0-50.0) 10/30/16 06:42 Monocytes % 10.8 % (2.0-10.0) H 10/30/16 06:42 Eosinophils % 5.4 % (0.0-5.0) H 10/30/16 06:42 Basophils % 1.0 % (0.0-2.0) 10/30/16 06:42 Neutrophils (Manual) 52 % (40-80) 10/28/16 05:50 Lymphocytes 32 % (20-50) 10/28/16 05:50 Monocytes 10 % (2-10) 10/28/16 05:50 Eosinophils 6 % (0-5) H 10/28/16 05:50 Basophils 1 % (0-3) 10/27/16 21:35 Atypical Lymphocytes 2 % 10/27/16 21:35 Platelet Estimate DECREASED PLATELETS (NORMAL) 10/28/16 05:50 Platelet Morphology PLATELET CLUMPS SEEN (NORMAL) 10/28/16 05:50 RBC Morph Micro Appear NORMAL (NORMAL) 10/28/16 05:50 Specimen Source Arterial 10/30/16 08:30 Sample Site RB 10/30/16 08:30 pH 7.43 (7.35-7.45) 10/30/16 08:30 pCO2 38.0 mmHg (35.0-45.0) 10/30/16 08:30 pO2 88.0 mmHg (80.0-100.0) 10/30/16 08:30 HCO3 25.7 mEq/L (20.0-26.0) 10/30/16 08:30 Base Excess 1.0 mEq/L (-3.0-3.0) 10/30/16 08:30 O2 Saturation 97.0 % (92.0-100.0) 10/30/16 08:30 Parker Test NA 10/30/16 08:30 Vent Rate NA 10/30/16 08:30 Inspired O2 21 10/30/16 08:30 Tidal Volume NA 10/30/16 08:30 PEEP NA 10/30/16 08:30 Pressure (ins/psv/peep) NA 10/30/16 08:30 Critical Value SH 10/30/16 08:30 Sodium 128 mEq/L (136-145) L 10/28/16 05:50 Potassium 4.1 mEq/L (3.5-5.1) 10/28/16 05:50 Chloride 100 mEq/L (98-107) 10/28/16 05:50 Carbon Dioxide 27.3 mEq/L (21.0-31.0) 10/28/16 05:50 Anion Gap 4.8 (7.0-16.0) L 10/28/16 05:50 BUN 10 mg/dL (7-25) 10/28/16 05:50 Creatinine 0.7 mg/dL (0.7-1.3) 10/28/16 05:50 Est GFR ( Amer) > 60.0 ml/min (>90) 10/28/16 05:50 Est GFR (Non-Af Amer) > 60.0 ml/min 10/28/16 05:50 BUN/Creatinine Ratio 14.3 10/28/16 05:50 Glucose 112 mg/dL (70-105) H 10/28/16 05:50 Calcium 8.7 mg/dL (8.6-10.3) 10/28/16 05:50 Ammonia 70 umol/L (16-53) H 10/30/16 06:42 B-Natriuretic Peptide 14.9 pg/mL (5.0-100.0) 10/27/16 21:35 TSH 3.30 uIU/ml (0.34-5.60) 10/30/16 06:42 HIV 1&2 Antibody Screen NEGATIVE (NEG) 10/28/16 05:50 - Physical Exam Vitals and I&O: Vital Signs Temp 98.9 F 10/30/16 04:00 Pulse 94 10/30/16 08:53 Resp 20 10/30/16 08:00 BP 147/82 10/30/16 08:53 Pulse Ox 97 10/30/16 07:15 Intake & Output 10/29/16 10/30/16 10/30/16 18:59 06:59 18:59 Intake Total 2420 1000 Balance 2420 1000 Intake: Intake, IV Amount 1000 1000 Sodium Chloride 0.9% 1, 1000 1000 000 ml @ 125 mls/hr IV . Q8H [facility] Rx#:[id number] Oral 1420 Other: # Voids 5 Active Medications: Current Medications Acetaminophen (Tylenol) 650 mg PO Q4HR PRN PRN Reason: pain and fever Stop: 12/27/16 00:17 Last Admin: 10/30/16 04:53 Dose: 650 mg Acetaminophen/Hydrocodone Bitart ([place] 5mg/325mg) 1 tab PO Q8H PRN PRN Reason: Pain (Moderate) Stop: 12/27/16 00:17 Last Admin: 10/29/16 23:20 Dose: 1 tab Al Hydrox/Mg Hydrox/Simethicone (Maalox) 30 ml PO Q4HR PRN PRN Reason: GI DISTRESS Stop: 12/27/16 01:27 Albuterol/Ipratropium (Duoneb Neb) 3 ml HHN [id number] [facility] Stop: 12/28/16 18:59 Last Admin: 10/30/16 06:56 Dose: 3 ml Amitriptyline HCl (Elavil) 50 mg PO HS [facility] PRN Reason: Protocol Stop: 12/27/16 20:59 Last Admin: 10/29/16 21:13 Dose: 50 mg Aspirin (Aspirin Chewable) 81 mg PO DAILY [facility] Stop: 12/27/16 08:59 Last Admin: 10/30/16 08:53 Dose: 81 mg Benzocaine/Menthol (Cepacol) 1 liya MM Q4HR PRN PRN Reason: Sore Throat Stop: 12/27/16 11:36 Last Admin: 10/30/16 08:56 Dose: 1 liya Benztropine Mesylate (Cogentin) 1 mg PO BID [facility] Stop: 12/27/16 08:59 Last Admin: 10/30/16 08:53 Dose: 1 mg Budesonide (Pulmicort) 0.5 mg HHN BIDRT [facility] Stop: 12/28/16 18:59 Last Admin: 10/30/16 06:57 Dose: 0.5 mg Clonidine HCl (Catapres) 0.1 mg PO Q6HR PRN PRN Reason: BP SYS>160 Stop: 12/27/16 00:17 Last Admin: 10/30/16 05:45 Dose: 0.1 mg Ferrous Sulfate (Iron) 325 mg PO DAILY [facility] Stop: 12/27/16 08:59 Last Admin: 10/30/16 08:53 Dose: 325 mg Guaifenesin/Dextromethorphan (Robitussin Dm) 10 ml PO Q6HR PRN PRN Reason: Cough Stop: 12/27/16 11:35 Last Admin: 10/28/16 21:46 Dose: 10 ml Haloperidol (Haldol) 5 mg PO TID [facility] PRN Reason: Protocol Stop: 12/27/16 08:59 Last Admin: 10/30/16 08:52 Dose: 5 mg Sodium Chloride (Nacl 0.9%) 1,000 mls @ 125 mls/hr IV .Q8H [facility] Stop: 12/27/16 00:14 Last Admin: 10/30/16 04:53 Dose: 125 mls/hr Azithromycin 500 mg/ Sodium (Chloride) 250 mls @ 250 mls/hr IV Q24HR [facility] Stop: 12/27/16 00:59 Last Admin: 10/30/16 01:13 Dose: 250 mls/hr Lactulose (Cephulac) 30 gm PO QID [facility] Stop: 12/27/16 08:59 Last Admin: 10/29/16 21:13 Dose: 30 gm Lisinopril (Zestril) 20 mg PO DAILY [facility] Stop: 12/27/16 08:59 Last Admin: 10/30/16 08:53 Dose: 20 mg Lorazepam (Ativan) 1 mg PO Q6H PRN; Protocol PRN Reason: Anxiety Stop: 12/27/16 00:17 Last Admin: 10/28/16 12:12 Dose: 1 mg Magnesium Hydroxide (Milk Of Magnesia) 30 ml PO HS PRN PRN Reason: Constipation Stop: 12/27/16 00:17 Multivitamins/Vitamin C (Theragran) 1 tab PO DAILY [facility] Stop: 12/27/16 08:59 Last Admin: 10/30/16 08:53 Dose: 1 tab Naproxen (Naprosyn) 500 mg PO TIDWM [facility] Stop: 12/27/16 16:59 Last Admin: 10/30/16 08:54 Dose: 500 mg Pantoprazole Sodium (Protonix) 40 mg PO BID [facility] Stop: 12/28/16 16:59 Last Admin: 10/30/16 08:53 Dose: 40 mg Quetiapine Fumarate (Seroquel) 50 mg PO HS [facility] PRN Reason: Protocol Stop: 12/27/16 20:59 Last Admin: 10/29/16 21:13 Dose: 50 mg Sodium Chloride (Nacl Tab) 2 gm PO DAILY [facility] Stop: 12/27/16 11:44 Last Admin: 10/30/16 08:52 Dose: 2 gm Temazepam (Restoril) 15 mg PO HS PRN; Protocol PRN Reason: Insomnia Stop: 12/27/16 00:17 Last Admin: 10/29/16 21:16 Dose: 15 mg Assessment/Plan - Problem List Patient Problems: All Active Problems Acute exacerbation of chronic obstructive pulmonary disease (COPD) (Acute) J44.1 H/O chronic hepatitis (Acute) Z87.19 Hepatic encephalopathy (Acute) K72.90 Pneumonia, organism unspecified (Acute) J18.9 S/P FALLL...POSS. HIP FX (Acute)
[2016-10-30] MEDS: Lactulose 10 Gm/15 mL 30mL UDC PO SCH ×3 (10:19→18:07)
[2016-10-30] MEDS: Hydrocodone/APAP 5mg/325mg Tab PO PRN (18:31)
[2016-10-31] MEDS: Azithromycin 500 MG in Sodium Chloride 0.9% 250 ML IV SCH (00:16)
[2016-10-31] MEDS: Sodium Chloride 0.9% 1,000 ML IV SCH ×2 (00:49→13:20)
[2016-10-31] MEDS: Lactulose 10 Gm/15 mL 30mL UDC PO SCH ×3 (01:12→13:20)
[2016-10-31] MEDS: Codeine /Guaifenesin 10 mL UDC PO PRN ×2 (03:00→08:52)
[2016-10-31] MEDS: Hydrocodone/APAP 5mg/325mg Tab PO PRN ×2 (03:01→13:20)
--- NOTE | 2016-10-31 07:07 | Progress Notes ---
DATE: 10/30/2016 PROBLEM LIST: 1. Acute exacerbation of COPD. 2. Suspect GE reflux with obstructive sleep apnea syndrome. SYMPTOMS: Nil. The patient is coughing which is nonproductive. No respiratory distress, etc. PHYSICAL EXAMINATION: VITAL SIGNS: Temperature is 98.2, heart rate is 90s, blood pressure 171/88, saturation is 99 with supplemental oxygen. NECK: Veins not visualized. Good bilateral carotid upstroke. CHEST: Shows diminished air entry with occasional rhonchi. HEART: Regular. EXTREMITIES: Shows no peripheral edema. LABORATORY DATA: The patient's white count is 3.8, hemoglobin 11.8 and ABG shows pO2 of 88 and the patient's clinical ammonia is 70. ASSESSMENT: The patient clinically appears to be reasonably stable, improving, coughing may be residual from bronchitis as well as possibly GE reflux. PLANS AND SUGGESTIONS: We will go ahead and continue current treatment, check electrolytes, etc. If it remains reasonably stable, may consider the patient for discharge planning and follow up as an outpatient and go from there. JOB# [id number]
[2016-10-31 07:23] LABS: HEMATOCRIT 32.9 % (39.0-49.0); HEMOGLOBIN 11.6 gm/dL (12.6-17.4); MEAN CELL VOLUME 87.6 fl (80-99); MEAN CORPUSCULAR HEMOGLOBIN 30.8 pg (27.0-31.0); MEAN CORPUSCULAR HGB CONC 35.1 pg (28.0-36.0); MEAN PLATELET VOLUME 6.7 fl; RED BLOOD COUNT 3.75 Mil/cmm (3.80-5.80); RED CELL DISTRIBUTION WIDTH 13.5 % (11.5-20.0)
[2016-10-31] MEDS: Budesonide 0.5 Mg/2 mL Ud HHN SCH (07:31)
[2016-10-31] MEDS: Albuterol/Ipratropium Neb 3 ML AERS HHN SCH ×2 (07:31→11:50)
[2016-10-31 08:00] LABS: ALB/GLOB RATIO 1.1 (1.0-1.8); ALKALINE PHOSPHATASE 106 U/L (34-104); ANION GAP 13.4 (7.0-16.0); BILIRUBIN,TOTAL 0.9 mg/dL (0.3-1.0); BUN - UREA NITROGEN 7 mg/dL (7-25); CALCIUM SERUM 8.9 mg/dL (8.6-10.3); CARBON DIOXIDE 26.8 mEq/L (21.0-31.0); CHLORIDE 100 mEq/L (98-107); CREATININE - SERUM 0.7 mg/dL (0.7-1.3); GLUCOSE 111 mg/dL (70-105); POTASSIUM SERUM 4.2 mEq/L (3.5-5.1); SGOT 81 U/L (13-39); SGPT/ALT 47 U/L (7-52); SODIUM SERUM 136 mEq/L (136-145)
[2016-10-31 08:32] LABS: WHITE BLOOD COUNT 3.5 Th/cmm (4.8-10.8)
[2016-10-31 08:33] LABS: PLATELET COUNT 52 Th/cmm (150-400)
[2016-10-31] MEDS: Multivitamin Tab PO SCH (08:51)
[2016-10-31] MEDS: Ferrous Sulfate 325 MG TAB PO SCH (08:51)
[2016-10-31] MEDS: Pantoprazole 40 mg EC Tab PO SCH (08:51)
[2016-10-31] MEDS: Aspirin 81mg Chewable Tab PO SCH (08:51)
[2016-10-31] MEDS: Benztropine 1 MG TAB PO SCH (08:52)
[2016-10-31 09:02] LABS: EOSINOPHIL 12 % (0-5); NEUTROPHILS 37 % (40-80); TOTAL CELLS COUNTED 100
[2016-10-31 09:03] LABS: PLATELET ESTIMATE DECREASED PLATELETS (NORMAL); PLATELET MORPHOLOGY PLATELET CLUMPS SEEN (NORMAL)
--- NOTE | 2016-10-31 13:10 | Infectious Disease Prog Note ---
Infectious Disease Subjective - Review of Systems Service Date: 10/31/16 Subjective: There is no new change. hoarseness of voice persists. Infectious Disease Objective - Results Result Diagrams: 10/31/16 07:00 10/31/16 07:00 Recent Labs: Laboratory Last Values WBC 3.5 Th/cmm (4.8-10.8) L 10/31/16 07:00 RBC 3.75 Mil/cmm (3.80-5.80) L 10/31/16 07:00 Hgb 11.6 gm/dL (12.6-17.4) L 10/31/16 07:00 Hct 32.9 % (39.0-49.0) L 10/31/16 07:00 MCV 87.6 fl (80-99) 10/31/16 07:00 MCH 30.8 pg (27.0-31.0) 10/31/16 07:00 MCHC Differential 35.1 pg (28.0-36.0) 10/31/16 07:00 RDW 13.5 % (11.5-20.0) 10/31/16 07:00 Plt Count 52 Th/cmm (150-400) L D 10/31/16 07:00 MPV 6.7 fl 10/31/16 07:00 Neutrophils % 51.3 % (40.0-80.0) 10/30/16 06:42 Band Neutrophils % 1 % (0-10) 10/27/16 21:35 Lymphocytes % 31.5 % (20.0-50.0) 10/30/16 06:42 Monocytes % 10.8 % (2.0-10.0) H 10/30/16 06:42 Eosinophils % 5.4 % (0.0-5.0) H 10/30/16 06:42 Basophils % 1.0 % (0.0-2.0) 10/30/16 06:42 Neutrophils (Manual) 37 % (40-80) L 10/31/16 07:00 Lymphocytes 38 % (20-50) 10/31/16 07:00 Monocytes 13 % (2-10) H 10/31/16 07:00 Eosinophils 12 % (0-5) H 10/31/16 07:00 Basophils 1 % (0-3) 10/27/16 21:35 Atypical Lymphocytes 2 % 04/27/17 21:35 Platelet Estimate DECREASED PLATELETS (NORMAL) 10/31/16 07:00 Platelet Morphology PLATELET CLUMPS SEEN (NORMAL) 10/31/16 07:00 RBC Morph Micro Appear NORMAL (NORMAL) 10/31/16 07:00 Specimen Source Arterial 10/30/16 08:30 Sample Site RB 10/30/16 08:30 pH 7.43 (7.35-7.45) 10/30/16 08:30 pCO2 38.0 mmHg (35.0-45.0) 10/30/16 08:30 pO2 88.0 mmHg (80.0-100.0) 10/30/16 08:30 HCO3 25.7 mEq/L (20.0-26.0) 10/30/16 08:30 Base Excess 1.0 mEq/L (-3.0-3.0) 10/30/16 08:30 O2 Saturation 97.0 % (92.0-100.0) 10/30/16 08:30 Parker Test NA 10/30/16 08:30 Vent Rate NA 10/30/16 08:30 Inspired O2 21 10/30/16 08:30 Tidal Volume NA 10/30/16 08:30 PEEP NA 10/30/16 08:30 Pressure (ins/psv/peep) NA 10/30/16 08:30 Critical Value SH 10/30/16 08:30 Sodium 136 mEq/L (136-145) 10/31/16 07:00 Potassium 4.2 mEq/L (3.5-5.1) 10/31/16 07:00 Chloride 100 mEq/L (98-107) 10/31/16 07:00 Carbon Dioxide 26.8 mEq/L (21.0-31.0) 10/31/16 07:00 Anion Gap 13.4 (7.0-16.0) 10/31/16 07:00 BUN 7 mg/dL (7-25) 10/31/16 07:00 Creatinine 0.7 mg/dL (0.7-1.3) 10/31/16 07:00 Est GFR ( Amer) > 60.0 ml/min (>90) 10/31/16 07:00 Est GFR (Non-Af Amer) > 60.0 ml/min 10/31/16 07:00 BUN/Creatinine Ratio 10.0 10/31/16 07:00 Glucose 111 mg/dL (70-105) H 10/31/16 07:00 Calcium 8.9 mg/dL (8.6-10.3) 10/31/16 07:00 Total Bilirubin 0.9 mg/dL (0.3-1.0) 10/31/16 07:00 AST 81 U/L (13-39) H 10/31/16 07:00 ALT 47 U/L (7-52) 10/31/16 07:00 Alkaline Phosphatase 106 U/L (34-104) H 10/31/16 07:00 Ammonia 52 umol/L (16-53) 10/31/16 07:00 B-Natriuretic Peptide 14.9 pg/mL (5.0-100.0) 10/27/16 21:35 Total Protein 6.2 gm/dL (6.0-8.3) 10/31/16 07:00 Albumin 3.2 gm/dL (4.2-5.5) L 10/31/16 07:00 Globulin 3.0 gm/dL 10/31/16 07:00 Albumin/Globulin Ratio 1.1 (1.0-1.8) 10/31/16 07:00 TSH 3.30 uIU/ml (0.34-5.60) 10/30/16 06:42 HIV 1&2 Antibody Screen NEGATIVE (NEG) 10/28/16 05:50 - Physical Exam Vitals and I&O: Vital Signs Temp 97.3 F 10/31/16 08:00 Pulse 83 10/31/16 11:55 Resp 18 10/31/16 11:55 BP 152/84 10/31/16 08:50 Pulse Ox 100 10/31/16 11:55 Intake & Output 10/30/16 10/31/16 10/31/16 18:59 06:59 18:59 Intake Total 2672.917 550 Balance 2672.917 550 Intake: Intake, IV Amount 922.917 250 Azithromycin 500 mg In 250 Sodium Chloride 0.9% 250 ml @ 250 mls/hr IV Q24HR [facility] Rx#:[id number] Sodium Chloride 0.9% 1, 922.917 000 ml @ 125 mls/hr IV . Q8H [facility] Rx#:[id number] Oral 1750 300 Other: # Voids 5 4 # Bowel Movements 1 Stool Characteristics Soft Soft Soft Formed Formed Formed Active Medications: Current Medications Acetaminophen (Tylenol) 650 mg PO Q4HR PRN PRN Reason: pain and fever Stop: 12/27/16 00:17 Last Admin: 10/31/16 08:51 Dose: 650 mg Acetaminophen/Hydrocodone Bitart ([place] 5mg/325mg) 1 tab PO Q8H PRN PRN Reason: Pain (Moderate) Stop: 12/27/16 00:17 Last Admin: 10/31/16 03:01 Dose: 1 tab Al Hydrox/Mg Hydrox/Simethicone (Maalox) 30 ml PO Q4HR PRN PRN Reason: GI DISTRESS Stop: 12/27/16 01:27 Albuterol/Ipratropium (Duoneb Neb) 3 ml HHN [id number] [facility] Stop: 12/28/16 18:59 Last Admin: 10/31/16 11:50 Dose: 3 ml Amitriptyline HCl (Elavil) 50 mg PO HS [facility] PRN Reason: Protocol Stop: 12/27/16 20:59 Last Admin: 10/30/16 21:23 Dose: 50 mg Aspirin (Aspirin Chewable) 81 mg PO DAILY [facility] Stop: 12/27/16 08:59 Last Admin: 10/31/16 08:51 Dose: 81 mg Benzocaine/Menthol (Cepacol) 1 liya MM Q4HR PRN PRN Reason: Sore Throat Stop: 12/27/16 11:36 Last Admin: 10/30/16 16:48 Dose: 1 liya Benztropine Mesylate (Cogentin) 1 mg PO BID [facility] Stop: 12/27/16 08:59 Last Admin: 10/31/16 08:52 Dose: 1 mg Budesonide (Pulmicort) 0.5 mg HHN BIDRT [facility] Stop: 12/28/16 18:59 Last Admin: 10/31/16 07:31 Dose: 0.5 mg Clonidine HCl (Catapres) 0.1 mg PO Q6HR PRN PRN Reason: BP SYS>160 Stop: 12/27/16 00:17 Last Admin: 10/30/16 17:07 Dose: 0.1 mg Ferrous Sulfate (Iron) 325 mg PO DAILY [facility] Stop: 12/27/16 08:59 Last Admin: 10/31/16 08:51 Dose: 325 mg Guaifenesin/Codeine Phosphate (Robitussin Ac) 10 ml PO Q6HR PRN PRN Reason: Cough or Congestion Stop: 12/29/16 17:34 Last Admin: 10/31/16 08:52 Dose: 10 ml Haloperidol (Haldol) 5 mg PO TID [facility] PRN Reason: Protocol Stop: 12/27/16 08:59 Last Admin: 10/31/16 08:52 Dose: 5 mg Sodium Chloride (Nacl 0.9%) 1,000 mls @ 125 mls/hr IV .Q8H [facility] Stop: 12/27/16 00:14 Last Admin: 10/31/16 00:49 Dose: Not Given Azithromycin 500 mg/ Sodium (Chloride) 250 mls @ 250 mls/hr IV Q24HR [facility] Stop: 12/27/16 00:59 Last Infusion: 10/31/16 01:16 Dose: Infused Lactulose (Cephulac) 30 gm PO QID [facility] Stop: 12/27/16 08:59 Last Admin: 10/31/16 08:52 Dose: 30 gm Lisinopril (Zestril) 20 mg PO DAILY [facility] Stop: 12/27/16 08:59 Last Admin: 10/31/16 08:50 Dose: 20 mg Lorazepam (Ativan) 1 mg PO Q6H PRN; Protocol PRN Reason: Anxiety Stop: 12/27/16 00:17 Last Admin: 10/28/16 12:12 Dose: 1 mg Magnesium Hydroxide (Milk Of Magnesia) 30 ml PO HS PRN PRN Reason: Constipation Stop: 12/27/16 00:17 Multivitamins/Vitamin C (Theragran) 1 tab PO DAILY [facility] Stop: 12/27/16 08:59 Last Admin: 10/31/16 08:51 Dose: 1 tab Naproxen (Naprosyn) 500 mg PO TIDWM [facility] Stop: 12/27/16 16:59 Last Admin: 10/31/16 08:51 Dose: 500 mg Pantoprazole Sodium (Protonix) 40 mg PO BID [facility] Stop: 12/28/16 16:59 Last Admin: 10/31/16 08:51 Dose: 40 mg Quetiapine Fumarate (Seroquel) 50 mg PO HS [facility] PRN Reason: Protocol Stop: 12/27/16 20:59 Last Admin: 10/30/16 21:24 Dose: 50 mg Sodium Chloride (Nacl Tab) 2 gm PO DAILY [facility] Stop: 12/27/16 11:44 Last Admin: 10/31/16 08:50 Dose: 2 gm Temazepam (Restoril) 15 mg PO HS PRN; Protocol PRN Reason: Insomnia Stop: 12/27/16 00:17 Last Admin: 10/29/16 21:16 Dose: 15 mg General: no acute distress, well developed, well nourished HEENT: atraumatic, normocephalic, PERRLA, EOMI Neck: supple Cardiovascular: S1S2, regular Lungs: clear to auscultation bilaterally, clear to percussion Abdomen: soft, no tender Extremities: no cyanosis, no clubbing, no edema Neurological: awake, alert, oriented Skin: intact Infectious Disease Assmt/Plan - Problem List Patient Problems: All Active Problems Acute exacerbation of chronic obstructive pulmonary disease (COPD) (Acute) J44.1 H/O chronic hepatitis (Acute) Z87.19 Hepatic encephalopathy (Acute) K72.90 Pneumonia, organism unspecified (Acute) J18.9 S/P FALLL...POSS. HIP FX (Acute) - Assessment Assessment: Impression: 1. COPD exacerbation. 2. Bronchitis. 3. chronic pharyngitis. 4. HTN. 5. chronic pain syndrome. Recommendations: Continue same treatment. abx: Azithromycin. DC plan. DC antibiotics on discharge.
--- NOTE | 2016-11-01 14:07 | Progress Notes ---
DATE: 10/31/2016 PROBLEM LIST: 1. Acute exacerbation of chronic obstructive pulmonary disease. 2. Suspect sleep apnea syndrome. 3. Possibly hepatic disease. SYMPTOMS: Nil, feeling much better, coughing is significantly improved. Denies of any coughing, any wheezing or chest pain. PHYSICAL EXAMINATION: VITAL SIGNS: The patient's temperature is 97.3, blood pressure ____, saturation is 100% on room air. ENT: Shows no new changes. CHEST: Shows diminished air entry with occasional rhonchi. HEART: Regular. ABDOMEN: Soft and nontender. LABORATORY DATA: The patient's white count is 8.5, hemoglobin 11.6, platelets ____. The patient's electrolytes are okay with slight elevation of the LFT and the patient's ammonia level is 52. ASSESSMENT: The patient clinically significantly improved and improving. PLANS AND SUGGESTIONS: We will continue current treatment and okay pulmonary schwab to discharge, need to have some sleep study as an outpatient. We will request attending to get authorization to see me and go from there. JOB# [id number]
--- NOTE | 2016-11-15 12:57 | Discharge Progress Note ---
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 COPD exacerbation. 2. Bronchitis. 3. chronic pharyngitis. 4. HTN. 5. chronic pain syndrome. Disposition: [facility] Procedures Performed: 10/27/16 22:26 EKG-ELECTROCARDIOGRAM Stat 10/27/16 23:03 Transfer Order Routine 10/27/16 23:04 ADMIT ORDERS ONCE 10/28/16 00:15 Sodium Chloride 0.9% [NaCL 0.9%] 1,000 ml IV 125 mls/hr 10/28/16 00:18 Acetaminophen [Tylenol] 650 mg PO Q4HR PRN Hydrocodone/APAP 5mg/325mg [Townley 5mg/325mg] 1 tab PO Q8H PRN Lorazepam [Ativan] 1 mg PO Q6H PRN Magnesium Hydroxide [Milk of Magnesia] 30 ml PO HS PRN Naproxen [Naprosyn] 500 mg PO Q12H PRN Temazepam [Restoril] 15 mg PO HS PRN cloNIDine HCl [Catapres] 0.1 mg PO Q6HR PRN 10/28/16 00:36 Additional Notes for Nursing ONCE 10/28/16 01:00 Azithromycin [Zithromax] 500 mg Sodium Chloride 0.9% [NaCL 0.9%] 250 ml IV Q24HR 10/28/16 01:05 Azithromycin [Zithromax] 500 mg IV .STK-MED ONE 10/28/16 01:28 Al Hyd/Mg Hyd/Simethicone [Maalox] 30 ml PO Q4HR PRN 10/28/16 02:58 Sequential Compression Device ONCE 10/28/16 04:51 PHYSICIAN [CONS] ONCE 10/28/16 05:50 BMP (BASIC METABOLIC) Routine CBC WITH MANUAL DIFF Routine HIV /2 SCREEN -@[facility] Routine 10/28/16 09:00 Aspirin [Aspirin Chewable] 81 mg PO DAILY Benztropine [Cogentin] 1 mg PO BID Ferrous Sulfate [Iron] 325 mg PO DAILY Haloperidol [Haldol] 5 mg PO TID Lactulose [Cephulac] 30 gm PO QID Lisinopril [Zestril] 20 mg PO DAILY Multivitamin [Theragran] 1 tab PO DAILY Pantoprazole [Protonix] 40 mg PO DAILY 10/28/16 11:36 Guaifenesin DM [Robitussin DM] 10 ml PO Q6HR PRN 10/28/16 11:37 Benzocaine/Menthol Lozenge [Cepacol] 1 liya MM Q4HR PRN 10/28/16 11:45 Sodium Chloride Tab [NaCL Tab] 2 gm PO DAILY 10/28/16 12:54 PHYSICIAN [CONS] ONCE 10/28/16 13:26 cloNIDine HCl [Catapres] 0.1 mg PO Q6HR PRN 10/28/16 17:00 Naproxen [Naprosyn] 500 mg PO TIDWM 10/28/16 21:00 Amitriptyline [Elavil] 50 mg PO HS QUEtiapine Fumarate [SEROquel] 50 mg PO HS 10/28/16 Breakfast LOW SODIUM (2 GM) [DIET] 10/29/16 HANDHELD NEBULIZER INITIAL [RT] Routine PULSE OXIMETRY CHECK [RT] Routine PULSE OXIMETRY CHECK [RT] Routine 10/29/16 05:00 CXR [CHEST, 1 VIEW] [RAD] Routine 10/29/16 17:00 Pantoprazole [Protonix] 40 mg PO BID 10/29/16 19:00 Albuterol/Ipratropium Neb [Duoneb Neb] 3 ml HHN [id number] Budesonide [Pulmicort] 0.5 mg HHN BIDRT 10/30/16 06:42 AMMONIA BLOOD Routine CBC /W AUTO DIFF Routine TSH Routine 10/30/16 08:30 ABG (ARTERIAL BLOOD GAS) Routine 10/30/16 17:35 Codeine /Guaifenesin [Robitussin AC] 10 ml PO Q6HR PRN 10/31/16 HANDHELD NEBULIZER INITIAL [RT] Routine PULSE OXIMETRY CHECK [RT] Routine 10/31/16 07:00 AMMONIA BLOOD Routine CBC WITH MANUAL DIFF Routine CMP (COMPLETE METABOLIC) Routine 10/31/16 14:23 DISCHARGE PATIENT ONCE 10/28/16 05:50 BMP (BASIC METABOLIC) Routine CBC WITH MANUAL DIFF Routine HIV 1/2 SCREEN -@[facility] Routine 10/30/16 06:42 AMMONIA BLOOD Routine CBC /W AUTO DIFF Routine TSH Routine 10/30/16 08:30 ABG (ARTERIAL BLOOD GAS) Routine 10/31/16 07:00 AMMONIA BLOOD Routine CBC WITH MANUAL DIFF Routine CMP (COMPLETE METABOLIC) Routine 10/31/16 15:30 (created 10/31/16 17:54) Nurse Notes by Karla Edward Discharge: Patient picked up by ambulance and transported via gurney for discharge, all belongings taken, no evidence of any distress or discomfort noted at this time, IV site and ID band removed. Initialized on 10/31/16 17:54 - END OF NOTE 10/31/16 14:53 Nurse Notes by Karla Edward Called report: Called Usman Conn to given report for discharge, spoke to Cher ARMANDO, endorsed sleep study follow up at Dr. Ashwin Chand's office. Initialized on 10/31/16 14:53 - END OF NOTE 10/31/16 07:58 (created 10/31/16 17:58) Nurse Notes by Karla Edward AM Shift: Received patient awake and alert, resting well in bed with HOB elevated, no evidence of any distress or discomfort noted at this time, IVF infusing well at ordered rate, set up for breakfast, eating well independently, call light within reach, will continue to monitor and make frequent rounds. Initialized on 10/31/16 17:58 - END OF NOTE 10/31/16 06:45 Nurse Notes by Bradford Chauhan Closing note Patient's asleep in bed. No sign of pain or distress. IVF infusing well. Call light within reach. Initialized on 10/31/16 06:45 - END OF NOTE 10/31/16 00:00 (created 10/31/16 05:15) Nurse Notes by Bradford Chauhan Patient's asleep in bed. No sign of pain or distress. BP152/69. Initialized on 10/31/16 05:15 - END OF NOTE 10/30/16 20:00 (created 10/30/16 22:41) Nurse Notes by Bradford Chauhan Initial assessment Received patient awake, alert, oriented in bed. BP163/92. Breathing unlabored. IVF infusing NS@125ml/hr to right forearm#22. No sign of pain or distress. Bed in low for safety. Call light within reach. Initialized on 10/30/16 22:41 - END OF NOTE 10/30/16 18:50 Nurse Notes by Jt Marie End of shift Patient is resting in bed. Assist patient with Pm care. Pain med given. Bed is in low position. Call light within reach. Initialized on 10/30/16 18:50 - END OF NOTE 10/30/16 07:48 Nurse Notes by Jt Marie Addendum entered by Jt Marie 10/30/16 07:57: Patient is on NS at 125 ml/hr Original Note: Initial assessment Patient is sitting upright with breathing treatment given by RT. No SOB, no distress. IVF infusing well on RFA with d51/2ns at 70 ml/hr. Bed is in low position. Initialized on 10/30/16 07:48 - END OF NOTE 10/30/16 05:47 Nurse Notes by Silvia Personn bp med given for bp of 170/96, will recheck bp in a few minutes Initialized on 10/30/16 05:47 - END OF NOTE 10/29/16 23:35 Nurse Notes by Silvia Personn pain meds given for 6/10 pain, will monitor for efficacy Initialized on 10/29/16 23:35 - END OF NOTE 10/29/16 20:19 Nurse Notes by Silvia Person received pt in bed awake alert oriented, able to ambulate with steady gait, ivf infusing well to rt fa, voice still hoarse, c/o 3/10 throat pain but able to swallow with no difficulty, sbp slightly elevated, resp unlabored on room air, assessment done, call light in reach Initialized on 10/29/16 20:19 - END OF NOTE 10/29/16 18:02 Nurse Notes by Jt Marie End of shift Patient is resting in bed. VS stable, no fever. Pm care rendered. Dr. Ashwin Chand and Justino Chand seen the patient. Safe environment rendered. Initialized on 10/29/16 18:02 - END OF NOTE 10/29/16 15:22 Nurse Notes by Jt Marie Addendum to abnormal lab MD Megan Chand also informed of the WbC 3.4 and platelets 41 with no order. Initialized on 10/29/16 15:22 - END OF NOTE 10/29/16 08:18 Nurse Notes by Jt Marie Initial assessment Patient is awake, alert,, oriented X4. No SOB, no distress on Ra. Bilateral diminished lung sound upon auscultation. Abdomen soft and non distended with bowel sounds present. VS stable. TREAD BOOKER Luis Felipe of Dr Travis came in to see patient. Informed TREAD BOOKER of WBC 3.4, PLATELETS 41, NA 128. Previous WBC 3.9, PLATELETS 55, NA 122. Patient is on ivf with ns at 125 ml/hr as well as NaCl tab 2 gm Po qd with order cbc tomorrow. Continue to monitor. Initialized on 10/29/16 08:18 - END OF NOTE 10/29/16 07:47 Nurse Notes by TR 09,[facility] Pt was asleep through out most of shift after prn pain and cough medications were administered and tolerated well. No episodes of SOB breathing was even and unlabored, no distress noted. Pt able to ambulate to restroom. Will endores current condition to day shift. Initialized on 10/29/16 07:47 - END OF NOTE 10/28/16 18:13 Nurse Notes by Lise Church Addendum entered by Lise Church 10/28/16 18:41: Endorse PM RN to obtain signature from DR Forte for Psych meds. Original Note: Closing Note Pt C/O pain 8/10 on R LE, requires pain meds ATC, Dr. Travis awares. Endorse PM RN to continue with routine treatments, monitor for cough and sore throat. Initialized on 10/28/16 18:13 - END OF NOTE 10/28/16 08:53 Nurse Notes by Lise Church Addendum entered by Lise Church 10/28/16 16:56: Dr Travis assessed pt. Changes Naproxen 500 mg, PO, TIDWM. Original Note: Addendum entered by Lise Church 10/28/16 11:43: Received tel orders from DR Cheng: Robitussin DM, 10 ml, PO, PRN Q6, Cepacol, 1 Liya, PO, PRN, Q4, NACL 2g, PO,Daily. Notified R midlung density. No order given. Original Note: AM Note Patiet is wake, alert, orientedx4, verbally responsive. Follow simple commands. Calm and cooperative with care. C/o sore throat pain when cough. Respirations even and unlabored. No wheezing or congestion noted. Abdomen round, large and firm. Bowel sounds present on all four quadrants. Skin clean and intact but dry and warm to touch. Bed locked, in lowest position and bedside rails up for bed mobility and safety. En couraged to call for assistance when needed. Call light within reach. Initialized on 10/28/16 08:53 - END OF NOTE 10/28/16 06:53 Nurse Notes by Ramu Astorga End of shift note Patient resting comfortably in bed. asleep but arousable and responsive to voice. no complaints of pain or discomfort noted. no SOB or difficulty breathing. IV site patent and intact, currently infusing IV fluids. SCDs in place. bed locked and in lowest position with side rails up for safety. call light within reach. encouraged to call for assistance if needed. immediate care provided. will endorse to next shift Initialized on 10/28/16 06:53 - END OF NOTE 10/28/16 01:04 Nurse Notes by Jg Mckeon Admission Notes: Patient received from ER admitted to medsurge unit via gurney/bed. Awake, alert , orientedx4, verbally responsive. Not in distress. Follow simple commands. Calm and cooperative with care. C/o sore throat pain when cough. Respirations even and unlabored. IV line to left hand patent and intact. Oriented to room. No wheezing or congestion noted. Abdomen round, large and firm. Bowel sounds present on all four quadrants. Non-distended. Skin body assessment performed. Skin clean and intact but dry and warm to touch. Immediate care provided. Bed locked, in lowest position and bedside rails up for bed mobility and safety. En couraged to call for assistance when needed. Call light within reach. Called and spoke to Dr. Travis with new orders made, NS IL AT 125MLS/HR, Azithromycin 500mg IVPB daily, Low sodium diet, CBC AND BMP in am 10/28/16, Consult with Dr. Justino Chand, noted and carried out. Will continue to monitor. Initialized on 10/28/16 01:04 - END OF NOTE 10/27/16 23:36 Nurse Notes by Dayanara Luna 2220 - DR RAMOS SPOKE TO DR TRAVIS AND DISCUSSED PATIENT'S CONDITION AND ADMISSION 2245 - REPORT GIVEN TO FABIAN ANTUNEZ 2300 - INSERTED AN IV ACCESS ON LEFT HAND G22 2321 - TRANSFERRED TO ROOM VIA GURNEY Initialized on 10/27/16 23:36 - END OF NOTE 10/27/16 23:25 (created 10/27/16 23:52) Nurse Notes by Ramu Astorga admit note Patient arrived to unit via gurney from ER at 23:25. patient asleep but arousable and responsive to voice. patient transferred to bed. belongings noted. patient has shortness of breath and cough. patient's voice weak. no other complaints of discomfort. patient very sleepy and would like to continue sleeping. immediate care provided. IV patent and intact. patient bed placed in lowest position with side rails up for safety. call light placed within reach and instructed to call for assistance if needed. will continue to monitor Initialized on 10/27/16 23:52 - END OF NOTE Reason for Hospitalization: cough, intolerable. Hospital Course (Significant Findings/Progress/Treatments): 65 y male with multiple medical conditions presented to the ED for loss of voice and productive cough , producing clear phlegm for the last 2 weeks. It is associated with upper abdominal pain during cough. He has had no fever or chest pains. On initial evaluation, his temperature was 98.1 degree F and WBC Count was 3,900. CXR showed no new change. He was diagnosed to have COPD exacerbation and treated accordingly. Pulmonary consult with Dr Ashwin Chand was called. Patient did well and discharged to SNF. Patient Aware of Diagnosis & Prognosis?: Yes Complications: NOne Allergies/Adverse Reactions: Allergies Allergy/AdvReac Type Severity Reaction Status Date / Time No Known Allergies Allergy Verified 10/27/16 21:09 Condition at Discharge: Stable Home Medications: Home Medication Medication Instructions Recorded Type Acetaminophen [Tylenol] 650 mg PO Q4HR PRN 10/24/14 History Aluminum Hydroxide/Magnesium1 30 ml PO Q4HR PRN 10/24/14 History [Mylanta 355 ml] Lorazepam [Ativan] 1 mg PO Q6H PRN 10/24/14 History Naproxen [Naprosyn] 500 mg PO Q12H PRN 10/24/14 History Aspirin [Aspirin Chewable] 81 mg PO DAILY 05/18/16 History Clonidine HCl [Catapres] 0.1 mg PO Q6HR PRN 05/18/16 History Ferrous Sulfate [Iron] 325 mg PO DAILY 05/18/16 History Hydrocodone/APAP 5mg/325mg [Townley 1 tab PO Q8H PRN 05/18/16 History 5mg/325mg] Lactulose 30 gm PO QID 05/18/16 History Lisinopril 20 mg PO DAILY 05/18/16 History Multivitamin [Theragran] 1 tab PO DAILY 05/18/16 History Temazepam [Restoril*] 15 mg PO HS PRN 05/18/16 History Amitriptyline [Elavil*] 50 mg PO HS 06/16/16 History Benztropine [Cogentin*] 1 mg PO BID 06/16/16 History Esomeprazole Magnesium [Nexium] 40 mg PO DAILY 06/16/16 History Haloperidol [Haldol*] 5 mg PO TID 06/16/16 History Magnesium Hydroxide [Milk of 30 ml PO HS PRN 06/16/16 History Magnesia] QUEtiapine Fumarate [SEROquel] 50 mg PO HS 06/16/16 History Sodium Chloride Tab [NaCL Tab] 2 gm PO DAILY #0 tab 10/31/16 Rx Referrals: iLsette Travis [Primary Care Provider] - Ashwin Chand [Active] - Rehab Potential: Fair Diet: Regular Reason for Transfer (If applicable): [patient was stable clinically for discharge. Copy Given to Patient & Patient's Legal Cardboard Inserter: Yes
== END 2016-10-31 15:20 | DRG 291 ==
LOC: ER 21:02 → MSI 22:20
PROVIDERS: ADMIT Internal Medicine; ATTEND Internal Medicine
DX: I13.2 Hypertensive heart and chronic kidney disease with heart failure and with stage 5 chronic kidney disease, or end stage renal disease (principal); N18.6 End stage renal disease; R65.11 Systemic inflammatory response syndrome (SIRS) of non-infectious origin with acute organ dysfunction; D69.6 Thrombocytopenia, unspecified; J44.1 Chronic obstructive pulmonary disease with (acute) exacerbation; E87.1 Hypo-osmolality and hyponatremia; F25.9 Schizoaffective disorder, unspecified; I50.9 Heart failure, unspecified; J31.2 Chronic pharyngitis; G89.4 Chronic pain syndrome; K21.9 Gastro-esophageal reflux disease without esophagitis; G47.33 Obstructive sleep apnea (adult) (pediatric); D64.9 Anemia, unspecified; F32.9 Major depressive disorder, single episode, unspecified; B19.20 Unspecified viral hepatitis C without hepatic coma; B34.9 Viral infection, unspecified; M19.90 Unspecified osteoarthritis, unspecified site; J40 Bronchitis, not specified as acute or chronic; Z87.891 Personal history of nicotine dependence; Z82.49 Family history of ischemic heart disease and other diseases of the circulatory system; Z79.82 Long term (current) use of aspirin
CPT/HCPCS: 36415-UA; 36600-90; 71010-TC; 80048-TC; 80053-TC; 82140-TC; 82803-TC; 83880-TC; 84443-TC; 85007-TC; 85025-TC; 85027-TC; 86703-TC; 93005; 94640; 94760; J0456; J7030; Z7610

== ENCOUNTER 2017-01-25 21:01 | Inpatient (IN) | payer MEDICARE, MEDICAID ==
[2017-01-25 21:42] LABS: HEMOGLOBIN 10.5 gm/dL (12.6-17.4); MEAN CORPUSCULAR HEMOGLOBIN 31.6 pg (27.0-31.0); RED BLOOD COUNT 3.32 Mil/cmm (3.80-5.80)
--- NOTE | 2017-01-25 21:55 | ED Physician Chart ---
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 Pain, A/N/V/D/C, fever, chills, or urinary s/s Allergies:: Allergies Allergy/AdvReac Type Severity Reaction Status Date / Time No Known Allergies Allergy Verified 11/22/16 22:14 Vitals:: Vital Signs - 8 hr 01/25/17 21:05 Temp 98.2 F HR 89 RR 16 BP 168/87 O2 Sat % 100 Historian:: Patient, EMS Review:: Nurse's Note Reviewed, Old Chart Reviewed, EMS run form Reviewed, Transfer documents Reviewed Review of Systems - Review of Systems General/Constitutional: Fever, Chills, No weight loss, No weakness, No diaphoresis, No edema, No loss of appetite Skin: No skin lesions, No rash, No bruising Head: No headache, No light-headedness Eyes: No loss of vision, No pain, No diplopia ENT: No earache, No nasal drainage, No sore throat, No tinnitus Neck: No neck pain, No swelling, No thyromegaly, No stiffness, No mass noted Cardio Vascular: No chest pain, Palpitations, No PND, No orthopnea, No edema Pulmonary: No SOB, Cough, No sputum, No wheezing GI: Nausea, Vomiting, Diarrhea, No pain, No melena, No hematochezia, Constipation, No hematemesis G/U: No dysuria, No frequency, No hematuria Musculoskeletal: No bone or joint pain, No back pain, No muscle pain Endocrine: Polyuria, Polydipsia Psychiatric: Prior psych history, Depression, Anxiety, No suicidal ideation Hematopoietic: No bruising, No lymphadenopathy Allergic/Immuno: No urticaria, No angioedema Neurological: No syncope, No focal symptoms, No weakness, No paresthesia, Headache, No seizure, No dizziness, No confusion, No vertigo Past Medical History - Past Medical History Obtainable: Yes Past Medical History: HTN, DM, Dyslipidemia, PUD/GERD Family History: Heart disease, Diabetes Melitus, HTN Social History: Smoker, Alcohol, No Drug Use, Single Surgical History: None Psychiatricy History: Depression, Bipolar Medication: Reviewed Family Medical History - Family Member Mother History Unknown: Yes Ethnicity: Non- Living Status: Hx Family Cancer: Yes Hx Family Coronary Artery Disease: No Hx Family Congestive Heart Failure: No Hx Family Hypertension: Yes Hx Family Stroke: No Hx Family Diabetes: No Hx Family Seizures: No Hx Family Dementia: No Hx Family AIDS: No Hx Family HIV: No Hx Family COPD: No Hx Family Hepatitis: No Hx Family Psychiatric Problems: No Hx Family Tuberculosis: No unknown History Unknown: Yes Ethnicity: Living Status: Hx Family Cancer: No Hx Family Coronary Artery Disease: No Hx Family Congestive Heart Failure: No Hx Family Hypertension: Yes Hx Family Stroke: No Hx Family Diabetes: No Hx Family Seizures: No Hx Family Dementia: No Hx Family AIDS: No Hx Family HIV: No Hx Family COPD: No Hx Family Hepatitis: No Hx Family Psychiatric Problems: No Hx Family Tuberculosis: No Father History Unknown: Yes Living Status: Sister History Unknown: Yes Ethnicity: Living Status: Physical Exam - Physical Examination General/Constitutional: Awake, Well-developed, well-nourished, Alert, No distress, GCS 15, Non-toxic appearing, Ambulatory Head: Atraumatic Eyes: Lids, conjuctiva normal, PERRL, EOMI Skin: Nl inspection, No rash, No skin lesions, No ecchymosis, Well hydrated, No lymphadenopathy ENMT: External ears, nose nl, Nasal exam nl, Lips, teeth, gums nl Neck: Nontender, Full ROM w/o pain, No JVD, No nuchal rigidity, No bruit, No mass, No stridor Respiratory: Nl effort/Exclusion, Clear to Auscultation, No Wheeze/Rhonchi/Rales Cardio Vascular: RRR, No murmur, gallop, rubs, NL S1 S2 GI: No tenderness/rebounding/guarding, No organomegaly, No hernia, Normal BS's, Nondistended, No mass/bruits, No McBurney tenderness : No CVA tenderness Extremities: No tenderness or effusion, Full ROM, normal strength in all extremities, No edema, Normal digits & nails Neuro/Psych: Alert/oriented, DTR's symmetric, Normal sensory exam, Normal motor strength, Judgement/insight normal, Mood normal, Normal gait, No focal deficits Misc: normal gait, Normal back, No paraspinal tenderness Labs/Radiology/EKG Results - Lab Results Results: Na+: 119 - EKG Interpretations Rate & Rhythm: NSR Comments:: non-specific st-t changes ED Septic Shock - . Is Septic Shock (SBP<90, OR Lactate>4 mmol\L) present?: No - <6hrs of presentation: Vital Signs: Vital Signs - 8 hr 01/25/17 21:05 Temp 98.2 F HR 89 RR 16 BP 168/87 O2 Sat % 100 Reassessment (Disposition) - Reassessment Reassessment Condition:: Improved - Diagnosis Diagnosis:: Hyponatremia; Dehydration; Syncope; S/P Fall - Aftercare/Follow up Instructions Aftercare/Follow-Up Instructions:: Counseled pt regarding lab results/diagnosis & need follow up, Counseled pt & family regarding lab results/diagnosis & need follow up - Patient Disposition Discharge/Transfer:: Acute Care w/in this hosp Accepting Physician:: Dr. Nair Time Called:: 2299 Time Responded:: 23:00 Admitted to:: ICU Spoke to:: Dr. Nair Admitting Medical Physician:: Dr. Nair Condition at Disposition:: Stable, Improved
[2017-01-25 22:00] LABS: % BASOPHILS 1.3 % (0.0-2.0); % EOSINOPHILS 4.5 % (0.0-5.0); % LYMPHOCYTES 33.8 % (20.0-50.0); % MONOCYTES 12.4 % (2.0-10.0); HEMATOCRIT 30.3 % (39.0-49.0); MEAN CELL VOLUME 91.4 fl (80-99); MEAN CORPUSCULAR HGB CONC 34.6 pg (28.0-36.0); MEAN PLATELET VOLUME 7.3 fl; PLATELET COUNT 47 Th/cmm (150-400); RED CELL DISTRIBUTION WIDTH 14.4 % (11.5-20.0); TROP I 0.02 ng/mL (0.01-0.05)
[2017-01-25 22:04] LABS: WHITE BLOOD COUNT 4.3 Th/cmm (4.8-10.8)
[2017-01-25 22:06] LABS: INR 1.29 (0.5-1.4); PROTHROMBIN TIME (TEST) 13.6 SECONDS (9.5-11.5)
[2017-01-25 22:07] LABS: BUN - UREA NITROGEN 7 mg/dL (7-25); CALCIUM SERUM 8.5 mg/dL (8.6-10.3); CARBON DIOXIDE 25.1 mEq/L (21.0-31.0); CHLORIDE 91 mEq/L (98-107); CHOLESTEROL 76 mg/dL (<200); CREATININE - SERUM 0.7 mg/dL (0.7-1.3); GLUCOSE 117 mg/dL (70-105); POTASSIUM SERUM 4.1 mEq/L (3.5-5.1); TRIGLYCERIDES 112 mg/dL (<150)
[2017-01-25 22:19] LABS: SODIUM SERUM 119 mEq/L (136-145)
[2017-01-25 22:22] LABS: BNP 11.6 pg/mL (5.0-100.0)
[2017-01-25] MEDS ORDERED: Sodium Chloride 0.9% 1,000 ML IV ONE (22:35)
[2017-01-25] MEDS ORDERED: APAP/Codeine 300 mg/30 mg Tab ONE (22:43)
[2017-01-25] MEDS ORDERED: APAP/Codeine 300 mg/30 mg Tab PO STA (22:45)
[2017-01-26] MEDS: Sodium Chloride 0.9% 1,000 ML IV SCH ×3 (00:30→17:53)
[2017-01-26] MEDS: Hydrocodone/APAP 5mg/325mg Tab PO PRN ×3 (00:52→20:57)
[2017-01-26 03:58] VITALS: BP 154/85
[2017-01-26 05:34] LABS: HEMATOCRIT 32.6 % (39.0-49.0); MEAN CELL VOLUME 92.9 fl (80-99); MEAN CORPUSCULAR HEMOGLOBIN 31.5 pg (27.0-31.0); MEAN CORPUSCULAR HGB CONC 33.8 pg (28.0-36.0); RED BLOOD COUNT 3.51 Mil/cmm (3.80-5.80)
[2017-01-26 05:53] LABS: ANION GAP 7.8 (7.0-16.0); BUN - UREA NITROGEN 7 mg/dL (7-25); CALCIUM SERUM 8.5 mg/dL (8.6-10.3); CARBON DIOXIDE 25.2 mEq/L (21.0-31.0); CHLORIDE 96 mEq/L (98-107); CREATININE - SERUM 0.7 mg/dL (0.7-1.3); GLUCOSE 120 mg/dL (70-105); SODIUM SERUM 125 mEq/L (136-145)
[2017-01-26 08:05] LABS: MEAN PLATELET VOLUME 7.2 fl; WHITE BLOOD COUNT 3.1 Th/cmm (4.8-10.8)
[2017-01-26 08:06] LABS: PLATELET COUNT 35 Th/cmm (150-400)
--- NOTE | 2017-01-26 09:27 | Diagnostic Imaging Report ---
CT scan of the brain without intravenous contrast HISTORY: Syncope Total DLP equals 615 CTDI equals 32.1 Axial sections were obtained from the base of the skull to the vertex. There is prominence/enlargement of the ventricular system size. Associated enlargement of cerebral sulci and subarachnoid cisterns. Findings are consistent with changes of generalized cerebral atrophy. No acute parenchymal abnormalities. No acute cerebral hemorrhage. Hypodensity is seen within the supratentorial white matter regions without mass effect. The findings may be associated with chronic small vessel ischemic disease. No extra-axial masses or abnormal fluid collections. IMPRESSION: 1. No acute abnormalities 2. Cerebral atrophy 3. Supratentorial white matter changes that may reflect chronic small vessel ischemic disease
--- NOTE | 2017-01-26 09:27 | Diagnostic Imaging Report ---
Portable chest x-ray HISTORY: Shortness of breath The heart appears enlarged. No focal pulmonary processes. No hilar or mediastinal abnormalities. IMPRESSION: 1. No acute focal pulmonary processes 2. Cardiomegaly
[2017-01-26] MEDS: Lactulose 10 Gm/15 mL 30mL UDC PO SCH ×4 (09:29→20:51)
[2017-01-26] MEDS: Benztropine 1 MG TAB PO SCH ×2 (09:30→17:53)
[2017-01-26] MEDS: Multivitamin Tab PO SCH (09:30)
[2017-01-26] MEDS: Pantoprazole 40 mg EC Tab PO SCH (09:30)
[2017-01-26] MEDS: Aspirin 81mg Chewable Tab PO SCH (09:32)
[2017-01-26] MEDS: Ferrous Sulfate 325 MG TAB PO SCH (09:34)
[2017-01-26 09:49] LABS: EOSINOPHIL 9 % (0-5); NEUTROPHILS 35 % (40-80); TOTAL CELLS COUNTED 100
[2017-01-26 09:50] LABS: PLATELET ESTIMATE DECREASED PLATELETS (NORMAL); PLATELET MORPHOLOGY PLATELET CLUMPS SEEN (NORMAL)
--- NOTE | 2017-01-26 10:15 | History and Physical ---
History of Present Illness - HPI Chief Complaint: s/p fall HPI: 66 year old male with h/o htn ,dm ,dyslipidemia ,oud/gerd patient presented after unwitnessed fall denes cp, sob Vital Signs: Last Vital Signs Temp 97.4 F 01/26/17 04:00 Pulse 89 01/26/17 09:30 Resp 15 01/26/17 06:53 BP 181/96 01/26/17 09:30 Pulse Ox 99 01/26/17 06:53 Past Medical History Cardiovascular: Report: HTN. Denies: CHF GI: Report: GERD, Peptic Ulcer. Denies: Other Psych: Report: Bipolar, Depression Endocrine: Report: Diabetes, Other (hyperlipidemia) Family Medical History - Family Member Mother History Unknown: Yes Ethnicity: Non- Living Status: Hx Family Cancer: Yes Hx Family Coronary Artery Disease: No Hx Family Congestive Heart Failure: No Hx Family Hypertension: Yes Hx Family Stroke: No Hx Family Diabetes: No Hx Family Seizures: No Hx Family Dementia: No Hx Family AIDS: No Hx Family HIV: No Hx Family COPD: No Hx Family Hepatitis: No Hx Family Psychiatric Problems: No Hx Family Tuberculosis: No unknown History Unknown: Yes Ethnicity: Non- Living Status: Hx Family Cancer: No Hx Family Coronary Artery Disease: No Hx Family Congestive Heart Failure: No Hx Family Hypertension: Yes Hx Family Stroke: No Hx Family Diabetes: No Hx Family Seizures: No Hx Family Dementia: No Hx Family AIDS: No Hx Family HIV: No Hx Family COPD: No Hx Family Hepatitis: No Hx Family Psychiatric Problems: No Hx Family Tuberculosis: No Father History Unknown: Yes Living Status: Sister History Unknown: Yes Ethnicity: Living Status: Social History Smoke: 1 pack per day Alcohol: Social Drugs: None Lives: Custodial Domestic Violence: Negative Health Maintenance Health Maintenance: Other - Medications Home Medications: Home Medication Medication Instructions Recorded Type Lorazepam [Ativan] 1 mg PO Q6H PRN 10/24/14 History Aspirin [Aspirin Chewable] 81 mg PO DAILY 05/18/16 History Ferrous Sulfate [Iron] 325 mg PO DAILY 05/18/16 History Hydrocodone/APAP 5mg/325mg [[place] 1 tab PO Q8H PRN 05/18/16 History 5mg/325mg] Lactulose 30 gm PO QID 05/18/16 History Lisinopril 20 mg PO DAILY 05/18/16 History Multivitamin [Theragran] 1 tab PO DAILY 05/18/16 History Amitriptyline [Elavil*] 50 mg PO HS 06/16/16 History Benztropine [Cogentin*] 1 mg PO BID 06/16/16 History Esomeprazole Magnesium [Nexium] 40 mg PO DAILY 06/16/16 History QUEtiapine Fumarate [SEROquel] 50 mg PO HS 06/16/16 History Sodium Chloride Tab [NaCL Tab] 2 gm PO DAILY #0 tab 10/31/16 Rx Zolpidem Tartrate [Ambien] 5 mg PO HS PRN 01/25/17 History - Allergies Allergies/Adverse Reactions: Allergies Allergy/AdvReac Type Severity Reaction Status Date / Time No Known Allergies Allergy Verified 11/22/16 22:14 Review of Systems - Review of Systems Constitutional: Report: No Significant Eyes: Report: No Significant ENT: Report: No Significant Respiratory: Report: No Significant Cardiovascular: Report: No Significant Gastrointestinal: Report: No Significant Genitourinary: Report: No Significant Musculoskeletal: Report: No Significant Skin: Report: No Significant Neurological: Report: Weakness. Denies: No Significant Physical Exam - Physical Exam HEENT: Report: Ears Nose Throat within normal limits Neck: Report: Within normal limits Cardiovascular Systems: Report: +s1/s2 noted Respiratory: Report: Breath Sounds are within normal limits Abdomen: Report: Non-tender to palpation. Denies: Bowel Sounds are within normal limits Back: Report: Inspection of back is within normal limits. Extremities: Report: Non-tender to palpation. Skin: Report: Color of skin is within normal limits Neuro/Psych: Report: Mood affect is within normal limits - Lab Results All Lab Results last 24 hours: Laboratory Last Values WBC 3.1 Th/cmm (4.8-10.8) L D 01/26/17 04:51 RBC 3.51 Mil/cmm (3.80-5.80) L 01/26/17 04:51 Hgb 11.0 gm/dL (12.6-17.4) L 01/26/17 04:51 Hct 32.6 % (39.0-49.0) L 01/26/17 04:51 MCV 92.9 fl (80-99) 01/26/17 04:51 MCH 31.5 pg (27.0-31.0) H 01/26/17 04:51 MCHC Differential 33.8 pg (28.0-36.0) 01/26/17 04:51 RDW 15.0 % (11.5-20.0) 01/26/17 04:51 Plt Count 35 Th/cmm (150-400) L D 01/26/17 04:51 MPV 7.2 fl 01/26/17 04:51 Neutrophils % 48.0 % (40.0-80.0) 01/25/17 21:35 Lymphocytes % 33.8 % (20.0-50.0) 01/25/17 21:35 Monocytes % 12.4 % (2.0-10.0) H 01/25/17 21:35 Eosinophils % 4.5 % (0.0-5.0) 01/25/17 21:35 Basophils % 1.3 % (0.0-2.0) 01/25/17 21:35 Neutrophils (Manual) 35 % (40-80) L 01/26/17 04:51 Lymphocytes 44 % (20-50) 01/26/17 04:51 Monocytes 12 % (2-10) H 01/26/17 04:51 Eosinophils 9 % (0-5) H 01/26/17 04:51 Platelet Estimate DECREASED PLATELETS (NORMAL) 01/26/17 04:51 Platelet Morphology PLATELET CLUMPS SEEN (NORMAL) 01/26/17 04:51 RBC Morph Micro Appear NORMAL (NORMAL) 01/26/17 04:51 PT 13.6 SECONDS (9.5-11.5) H 01/25/17 21:35 INR 1.29 (0.5-1.4) 01/25/17 21:35 Sodium 125 mEq/L (136-145) L 01/26/17 04:51 Potassium 4.0 mEq/L (3.5-5.1) 01/26/17 04:51 Chloride 96 mEq/L (98-107) L 01/26/17 04:51 Carbon Dioxide 25.2 mEq/L (21.0-31.0) 01/26/17 04:51 Anion Gap 7.8 (7.0-16.0) 01/26/17 04:51 BUN 7 mg/dL (7-25) 01/26/17 04:51 Creatinine 0.7 mg/dL (0.7-1.3) 01/26/17 04:51 Est GFR ( Amer) > 60.0 ml/min (>90) 01/26/17 04:51 Est GFR (Non-Af Amer) > 60.0 ml/min 01/26/17 04:51 BUN/Creatinine Ratio 10.0 01/26/17 04:51 Glucose 120 mg/dL (70-105) H 01/26/17 04:51 Calcium 8.5 mg/dL (8.6-10.3) L 01/26/17 04:51 Creatine Kinase 104 U/L (30-223) 01/25/17 21:35 Troponin I 0.02 ng/mL (0.01-0.05) 01/25/17 21:35 B-Natriuretic Peptide 11.6 pg/mL (5.0-100.0) 01/25/17 21:35 Triglycerides 112 mg/dL (<150) 01/25/17 21:35 Cholesterol 76 mg/dL (<200) 01/25/17 21:35 LDL Cholesterol Direct 25 mg/dL (75-193) L 01/25/17 21:35 HDL Cholesterol 28 mg/dL (23-92) 01/25/17 21:35 Laboratory Results - last 24 hr 01/26/17 01/26/17 04:51 04:51 WBC 3.1 L D RBC 3.51 L Hgb 11.0 L Hct 32.6 L MCV 92.9 MCH 31.5 H MCHC Differential 33.8 RDW 15.0 Plt Count 35 L D MPV 7.2 Neutrophils (Manual) 35 L Lymphocytes 44 Monocytes 12 H Eosinophils 9 H Platelet Estimate DECREASED PLATELETS Platelet Morphology PLATELET CLUMPS SEEN RBC Morph Micro Appear NORMAL Sodium 125 L Potassium 4.0 Chloride 96 L Carbon Dioxide 25.2 Anion Gap 7.8 BUN 7 Creatinine 0.7 Est GFR ( Amer) > 60.0 Est GFR (Non-Af Amer) > 60.0 BUN/Creatinine Ratio 10.0 Glucose 120 H Calcium 8.5 L - Assessment Assessment: hyponatremia dehydration syncope s/p fall h/o dm h/o htn h/o dyslipidemia h/o pud h/o gerd - Plan Plan: as per order sheet
[2017-01-26] MEDS ORDERED: Probiotic Screen MC PRN (11:25)
--- NOTE | 2017-01-26 11:25 | Progress Notes ---
DATE: 01/26/2017 REFERRING PHYSICIAN: Dr. Nair. REASON FOR CONSULTATION: Pancytopenia. HISTORY OF PRESENT ILLNESS: The patient is a 66-year-old male who was admitted following syncope and fall in the nursing facility. He has been staying in a nursing facility before rehab over the past couple of years. The patient is known to me from previous evaluation. He suffered ecchymosis on the right flank and forehead, but no signs of bleeding anywhere. PAST MEDICAL HISTORY: Chronic hepatitis C, cirrhosis, hypertension, COPD, asthma, depression. PAST SURGICAL HISTORY: Left hip and knee surgeries. SOCIAL HISTORY: Resident of a nursing facility at this time. MEDICATIONS: Reviewed. Elavil, aspirin, Cogentin, iron, [place], Zestril, Ativan, Protonix, Seroquel. PHYSICAL EXAMINATION: GENERAL: He is awake, alert, oriented x 3. VITAL SIGNS: Stable. HEENT: Small ecchymosis on the forehead, no cranial nerve palsy. Face is symmetric. and for crying C case this medication treatment. NECK: No lymphadenopathy. CHEST: Good air entry. ABDOMEN: Soft, obese. There is ecchymosis on the right flank area. EXTREMITIES: No edema. NERVOUS SYSTEM: No focal deficits. LABORATORY DATA: Review of completed records showed the patient though as chronic thrombocytopenia for the past couple of years, his platelet count had been consistently below 50,000, his current platelets is 47. White count 4.3, hemoglobin 10.5. Elevation of monocytes, creatinine, 0.7. Ultrasound from October of this year showed hepatosplenomegaly. ASSESSMENT: 1. Chronic hepatitis C, cirrhosis, and splenomegaly. 2. 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 3. Skin ecchymosis status post fall. No active bleeding. No need to transfuse. Continue self care. The patient has coagulation panel that was normal and his previous workup for anemia was unremarkable. Thank you, Dr. Nair for the opportunity to participate in the care of this interesting case . JOB# [id number]
[2017-01-26 19:04] LABS: URINE BILIRUBIN NEGATIVE (NEGATIVE); URINE COLOR YELLOW; URINE GLUCOSE (UA) NEGATIVE (NEGATIVE); URINE KETONE NEGATIVE (NEGATIVE)
[2017-01-26 19:06] LABS: URINE BLOOD NEGATIVE (NEGATIVE); URINE PROTEIN NEGATIVE (NEGATIVE); URINE UROBILINOGEN 0.2 E.U./dL (0.2 - 1.0)
[2017-01-26 19:07] LABS: URINE BACTERIA NONE SEEN /hpf (NONE SEEN); URINE EPITHELIAL CELLS NONE SEEN /lpf (FEW); URINE RBC NONE SEEN /hpf (0-5); URINE WBC NONE SEEN /hpf (0-5)
[2017-01-27] MEDS: Sodium Chloride 0.9% 1,000 ML IV SCH ×4 (01:02→21:41)
--- NOTE | 2017-01-27 02:45 | Consultation ---
DATE OF CONSULTATION: 01/26/2017 CHALK CUTTER: Alfie Massey M.D. REASON FOR CONSULTATION: Persistent hyponatremia. HISTORY OF PRESENT ILLNESS: This is a 66-year-old male with past medical history of chronic hyponatremia, who was brought in because of an episode of fall. A few hours prior to admission, the patient got up from his bed, he started to feel dizzy, trying to transfer to his wheelchair and struck his face on the floor. He was then brought to the Emergency Room. CT scan of the head and chest x-ray revealed no acute disease. White count was 3.1. His blood pressure upon arrival was 168/87. He has a history of chronic hyponatremia. Sodium level 2 months ago was 126. He is currently on 2 g sodium chloride. His sodium upon arrival here was 119 and he was started on normal saline hydration. His sodium had improved to 125. He had no history of nausea and vomiting, diarrhea, loss of consciousness nor any syncopal episode. PAST MEDICAL HISTORY: 1. Chronic hyponatremia. 2. 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 3. Essential hypertension. 4. Type 2 diabetes mellitus. 5. Peptic ulcer disease/gastroesophageal reflux disease. 6. Bicytopenia including anemia, as well as thrombocythemia. 7. Chronic obstructive pulmonary disease. 8. Schizoaffective disorder. 9. Depression. CURRENT MEDICATIONS: He is currently on amitriptyline, aspirin, Cogentin, Catapres, Vasotec, ferrous sulfate, hydrocodone APAP, lactulose, Zestril, pantoprazole, quetiapine, sodium chloride, and Ambien. ALLERGIES: No known drug allergies. SOCIAL AND FAMILY HISTORY: I was not able to obtain directly from the patient because he is mentally depressed at the present time. REVIEW OF SYSTEMS: Again, I was not able to decipher directly from the patient because of his poor mental status and unable to provide any appropriate responses. PHYSICAL EXAMINATION: GENERAL: The patient is drowsy, but arousable. VITAL SIGNS: His blood pressure is 182/99, pulse 90, temperature 97.4 degrees. SKIN: Poor turgor, warm. No rash, no jaundice appreciated. HEENT: Head is normocephalic, atraumatic. eyes: Extraocular muscles intact. Pupils equal, round, reactive to light and accommodate. Anicteric sclerae. Pale conjunctivae. Nose, midline nasal septum. Mouth: Dry mucosa with adequate dentition. Presence of a small bump on left frontal area. NECK: Supple, no adenopathy, no thyromegaly, no bruits. Trachea palpated in the midline. CHEST AND CVS: S1, S2. No rub, murmur, no gallop appreciated. Point of maximal impulse fifth intercostal space, left midclavicular line. No abdominal or femoral bruits appreciated. LUNGS: Equal expansion. No use of accessory muscles. No supraclavicular retractions. Decreased breath sounds. Clear to auscultation without any wheeze. ABDOMEN: Globular, soft, positive for bowel sounds. No bruits either diastolic or systolic. RECTAL: Lax sphincter tone. GENITOURINARY: Normal appearing male genitalia. MUSCULOSKELETAL: No effusions present in his joints, but unable to assess his range of motion. EXTREMITIES: No evidence of any edema, cyanosis nor clubbing with palpable femoral, unable to fully appreciate popliteal and dorsalis pedis pulses. NEUROLOGIC: As mentioned, the patient is quite drowsy at the present time, so he was not able to follow my neuro commands, and I was not able to proceed with my neuro exam. LABORATORY DATA: Did reveal white count was 3.1, hemoglobin 11, hematocrit 32.6, platelets 35, polys 35%. Sodium was 125, potassium was 4, chloride 96, CO2 25, BUN 7, creatinine 0.7, glucose 120, calcium 8.5. IMPRESSION: 1. Chronic hyponatremia, likely syndrome of inappropriate antidiuretic hormone. The patient at this point may have an increased loss of sodium compared to free water loss because of good response to replacement with normal saline. 2. Status post fall, which may be due to his dizziness, possibly metabolic cause. I doubt any orthostatic hypotension. 3. Bicytopenia involving anemia of chronic disease, as well as thrombocythemia, likely due to liver cirrhosis secondary to hepatitis A, B and C. 4. Essential hypertension, now out of control. 5. Type 2 diabetes mellitus. 6. Peptic ulcer disease/gastroesophageal reflux disease. 7. Chronic obstructive pulmonary disease. 8. Schizoaffective disorder. 9. Depression. PLAN: 1. Continue with normal saline for now. 2. Urine spot sodium. 3. Urine osmolality and uric acid. 4. Follow up electrolytes and CBC. 5. Control blood pressure. Thank you, Dr. Nair for this consult. We will follow the patient closely with you. JOB# [id number]
[2017-01-27] MEDS: Hydrocodone/APAP 5mg/325mg Tab PO PRN ×3 (05:17→21:41)
[2017-01-27 05:50] LABS: HEMATOCRIT 29.8 % (39.0-49.0); HEMOGLOBIN 10.2 gm/dL (12.6-17.4); MEAN CELL VOLUME 94.2 fl (80-99); MEAN CORPUSCULAR HEMOGLOBIN 32.1 pg (27.0-31.0); MEAN CORPUSCULAR HGB CONC 34.1 pg (28.0-36.0); MEAN PLATELET VOLUME 6.3 fl; RED BLOOD COUNT 3.17 Mil/cmm (3.80-5.80); RED CELL DISTRIBUTION WIDTH 15.3 % (11.5-20.0)
[2017-01-27 06:09] LABS: MAGNESIUM 1.7 mg/dL (1.9-2.7); URIC ACID 4.9 mg/dL (4.4-7.6)
[2017-01-27 06:11] LABS: ALKALINE PHOSPHATASE 117 U/L (34-104); BUN - UREA NITROGEN 8 mg/dL (7-25); BUN/CREATININE RATIO 11.4; CALCIUM SERUM 8.4 mg/dL (8.6-10.3); CARBON DIOXIDE 23.8 mEq/L (21.0-31.0); CHLORIDE 101 mEq/L (98-107); CREATININE - SERUM 0.7 mg/dL (0.7-1.3); GLUCOSE 146 mg/dL (70-105); POTASSIUM SERUM 3.8 mEq/L (3.5-5.1); SGOT 115 U/L (13-39); SGPT/ALT 64 U/L (7-52); SODIUM SERUM 129 mEq/L (136-145)
[2017-01-27 06:29] LABS: PLATELET COUNT 46 Th/cmm (150-400); WHITE BLOOD COUNT 2.6 Th/cmm (4.8-10.8)
[2017-01-27 06:58] LABS: BASOPHIL 2 % (0-3); EOSINOPHIL 6 % (0-5); NEUTROPHILS 52 % (40-80); TOTAL CELLS COUNTED 100
[2017-01-27 06:59] LABS: PLATELET ESTIMATE DECREASED PLATELETS (NORMAL); PLATELET MORPHOLOGY NORMAL (NORMAL)
[2017-01-27] MEDS: Lactulose 10 Gm/15 mL 30mL UDC PO SCH ×4 (09:08→21:42)
[2017-01-27] MEDS: Pantoprazole 40 mg EC Tab PO SCH (09:08)
[2017-01-27] MEDS: Aspirin 81mg Chewable Tab PO SCH (09:08)
[2017-01-27] MEDS: Ferrous Sulfate 325 MG TAB PO SCH (09:10)
[2017-01-27] MEDS: Benztropine 1 MG TAB PO SCH ×2 (09:10→16:07)
[2017-01-27] MEDS: Lactobacillus Rhamnosus 10 Billion CFU Capsule PO SCH (09:10)
[2017-01-27] MEDS: Multivitamin Tab PO SCH (09:10)
--- NOTE | 2017-01-27 11:20 | General Progress Note ---
Subjective - Review of Systems Service Date: 01/27/17 Events since last encounter: awake, alert, ambulating c/o body aches Objective - Results Result Diagrams: 01/27/17 05:35 01/27/17 05:35 Recent Labs: Laboratory Last Values WBC 2.6 Th/cmm (4.8-10.8) L 01/27/17 05:35 RBC 3.17 Mil/cmm (3.80-5.80) L 01/27/17 05:35 Hgb 10.2 gm/dL (12.6-17.4) L 01/27/17 05:35 Hct 29.8 % (39.0-49.0) L 01/27/17 05:35 MCV 94.2 fl (80-99) 01/27/17 05:35 MCH 32.1 pg (27.0-31.0) H 01/27/17 05:35 MCHC Differential 34.1 pg (28.0-36.0) 01/27/17 05:35 RDW 15.3 % (11.5-20.0) 01/27/17 05:35 Plt Count 46 Th/cmm (150-400) L D 01/27/17 05:35 MPV 6.3 fl 01/27/17 05:35 Neutrophils % 48.0 % (40.0-80.0) 01/25/17 21:35 Lymphocytes % 33.8 % (20.0-50.0) 01/25/17 21:35 Monocytes % 12.4 % (2.0-10.0) H 01/25/17 21:35 Eosinophils % 4.5 % (0.0-5.0) 01/25/17 21:35 Basophils % 1.3 % (0.0-2.0) 01/25/17 21:35 Neutrophils (Manual) 52 % (40-80) 01/27/17 05:35 Lymphocytes 28 % (20-50) 01/27/17 05:35 Monocytes 12 % (2-10) H 01/27/17 05:35 Eosinophils 6 % (0-5) H 01/27/17 05:35 Basophils 2 % (0-3) 01/27/17 05:35 Platelet Estimate DECREASED PLATELETS (NORMAL) 01/27/17 05:35 Platelet Morphology NORMAL (NORMAL) 01/27/17 05:35 RBC Morph Micro Appear NORMAL (NORMAL) 01/26/17 04:51 PT 13.6 SECONDS (9.5-11.5) H 01/25/17 21:35 INR 1.29 (0.5-1.4) 01/25/17 21:35 Sodium 129 mEq/L (136-145) L 01/27/17 05:35 Potassium 3.8 mEq/L (3.5-5.1) 01/27/17 05:35 Chloride 101 mEq/L (98-107) 01/27/17 05:35 Carbon Dioxide 23.8 mEq/L (21.0-31.0) 01/27/17 05:35 Anion Gap 8.0 (7.0-16.0) 01/27/17 05:35 BUN 8 mg/dL (7-25) 01/27/17 05:35 Creatinine 0.7 mg/dL (0.7-1.3) 01/27/17 05:35 Est GFR ( Amer) > 60.0 ml/min (>90) 01/27/17 05:35 Est GFR (Non-Af Amer) > 60.0 ml/min 01/27/17 05:35 BUN/Creatinine Ratio 11.4 01/27/17 05:35 Glucose 146 mg/dL (70-105) H 01/27/17 05:35 Uric Acid 4.9 mg/dL (4.4-7.6) 01/27/17 05:35 Calcium 8.4 mg/dL (8.6-10.3) L 01/27/17 05:35 Phosphorus 3.0 mg/dL (2.5-5.0) 01/27/17 05:35 Magnesium 1.7 mg/dL (1.9-2.7) L 01/27/17 05:35 Total Bilirubin 1.0 mg/dL (0.3-1.0) 01/27/17 05:35 AST 115 U/L (13-39) H 01/27/17 05:35 ALT 64 U/L (7-52) H 01/27/17 05:35 Alkaline Phosphatase 117 U/L (34-104) H 01/27/17 05:35 Creatine Kinase 104 U/L (30-223) 01/25/17 21:35 Troponin I 0.02 ng/mL (0.01-0.05) 01/25/17 21:35 B-Natriuretic Peptide 11.6 pg/mL (5.0-100.0) 01/25/17 21:35 Total Protein 5.8 gm/dL (6.0-8.3) L 01/27/17 05:35 Albumin 2.9 gm/dL (4.2-5.5) L 01/27/17 05:35 Globulin 2.9 gm/dL 01/27/17 05:35 Albumin/Globulin Ratio 1.0 (1.0-1.8) 01/27/17 05:35 Triglycerides 112 mg/dL (<150) 01/25/17 21:35 Cholesterol 76 mg/dL (<200) 01/25/17 21:35 LDL Cholesterol Direct 25 mg/dL (75-193) L 01/25/17 21:35 HDL Cholesterol 28 mg/dL (23-92) 01/25/17 21:35 TSH 4.23 uIU/ml (0.34-5.60) 01/27/17 05:35 Urine Source MIDSTREAM 01/26/17 17:23 Urine Color YELLOW 01/26/17 17:23 Urine Clarity CLEAR (CLEAR) 01/26/17 17:23 Urine pH 7.0 01/26/17 17:23 Ur Specific [place] 1.010 (1.005-1.030) 01/26/17 17:23 Urine Protein NEGATIVE mg/dL (NEGATIVE) 01/26/17 17:23 Urine Glucose (UA) NEGATIVE mg/dL (NEGATIVE) 01/26/17 17:23 Urine Ketones NEGATIVE mg/dL (NEGATIVE) 01/26/17 17:23 Urine Blood NEGATIVE (NEGATIVE) 01/26/17 17:23 Urine Nitrate NEGATIVE (NEGATIVE) 01/26/17 17:23 Urine Bilirubin NEGATIVE (NEGATIVE) 01/26/17 17:23 Urine Urobilinogen 0.2 E.U./dL (0.2 - 1.0) 01/26/17 17:23 Ur Leukocyte Esterase NEGATIVE (NEGATIVE) 01/26/17 17:23 Urine RBC NONE SEEN /hpf (0-5) 01/26/17 17:23 Urine WBC NONE SEEN /hpf (0-5) 01/26/17 17:23 Ur Epithelial Cells NONE SEEN /lpf (FEW) 01/26/17 17:23 Urine Bacteria NONE SEEN /hpf (NONE SEEN) 01/26/17 17:23 Ur Random Sodium 69 mmol/L 01/26/17 17:23 - Physical Exam Vitals and I&O: Vital Signs Temp 98.2 F 01/27/17 08:00 Pulse 90 01/27/17 09:13 Resp 19 01/27/17 08:00 BP 148/86 01/27/17 09:13 Pulse Ox 98 01/27/17 08:00 Intake & Output 01/26/17 01/27/17 01/27/17 18:59 06:59 18:59 Intake Total 4187.5 1543.75 Output Total 3200 2400 Balance 987.5 -856.25 Weight (lbs) 117.991 kg 117.622 kg 117.622 kg Intake: Intake, IV Amount 1837.5 893.75 Sodium Chloride 0.9% 1, 1837.5 893.75 000 ml @ 125 mls/hr IV . Q8H [facility] Rx#:[id number] Oral 2350 650 Output: Urine 3200 2400 Other: # Voids 1 # Bowel Movements 3 1 Stool Characteristics Soft Brown Active Medications: Current Medications Acetaminophen (Tylenol) 650 mg PO Q6H PRN PRN Reason: Fever >101 Stop: 03/27/17 13:27 Acetaminophen/Hydrocodone Bitart ([place] 5mg/325mg) 1 tab PO Q6H PRN PRN Reason: Pain (Severe) Stop: 03/27/17 18:05 Last Admin: 01/27/17 05:17 Dose: 1 tab Amitriptyline HCl (Elavil) 50 mg PO HS [facility] PRN Reason: Protocol Stop: 03/27/17 20:59 Last Admin: 01/26/17 20:50 Dose: 50 mg Aspirin (Aspirin Chewable) 81 mg PO DAILY [facility] Stop: 03/27/17 08:59 Last Admin: 01/27/17 09:08 Dose: 81 mg Benztropine Mesylate (Cogentin) 1 mg PO BID [facility] Stop: 03/27/17 08:59 Last Admin: 01/27/17 09:10 Dose: 1 mg Clonidine HCl (Catapres) 0.1 mg PO Q4HR PRN PRN Reason: FOR SBP>160 Stop: 03/27/17 05:00 Last Admin: 01/26/17 10:19 Dose: 0.1 mg Enalaprilat (Vasotec) 2.5 mg IVP Q6HR PRN PRN Reason: HIGH BLOOD PRESSURE Stop: 03/27/17 17:59 Last Admin: 01/26/17 13:15 Dose: 2.5 mg Ferrous Sulfate (Iron) 325 mg PO DAILY [facility] Stop: 03/27/17 08:59 Last Admin: 01/27/17 09:10 Dose: 325 mg Sodium Chloride (Nacl 0.9%) 1,000 mls @ 125 mls/hr IV .Q8H [facility] Stop: 03/27/17 00:03 Last Admin: 01/27/17 01:02 Dose: 125 mls/hr Lactobacillus Rhamnosus (Culturelle) 1 each PO DAILY [facility] Stop: 03/28/17 08:59 Last Admin: 01/27/17 09:10 Dose: 1 each Lactulose (Cephulac) 30 gm PO QID [facility] Stop: 03/27/17 08:59 Last Admin: 01/27/17 09:08 Dose: 30 gm Lisinopril (Zestril) 20 mg PO BID [facility] Stop: 03/27/17 16:59 Last Admin: 01/27/17 09:13 Dose: 20 mg Lorazepam (Ativan) 1 mg PO Q6H PRN; Protocol PRN Reason: Anxiety Stop: 03/27/17 00:03 Last Admin: 01/26/17 09:31 Dose: 1 mg Miscellaneous (Probiotic Screen) 1 ea MC PRN PRN PRN Reason: PROTOCOL Stop: 03/27/17 11:24 Multivitamins/Vitamin C (Theragran) 1 tab PO DAILY [facility] Stop: 03/27/17 08:59 Last Admin: 01/27/17 09:10 Dose: 1 tab Pantoprazole Sodium (Protonix) 40 mg PO DAILY [facility] Stop: 03/27/17 08:59 Last Admin: 01/27/17 09:08 Dose: 40 mg Quetiapine Fumarate (Seroquel) 50 mg PO HS [facility] PRN Reason: Protocol Stop: 03/27/17 20:59 Last Admin: 01/26/17 20:50 Dose: 50 mg Sodium Chloride (Nacl Tab) 2 gm PO DAILY [facility] Stop: 03/27/17 08:59 Last Admin: 01/27/17 09:12 Dose: 2 gm Zolpidem Tartrate (Ambien) 5 mg PO HS PRN PRN Reason: Insomnia Stop: 03/27/17 00:03 Last Admin: 01/26/17 20:54 Dose: 5 mg General: No acute distress HEENT: Atraumatic Neck: Supple Cardiovascular: Regular rate, Normal S1, Normal S2 Assessment/Plan - Problem List Patient Problems: All Active Problems Acute exacerbation of chronic obstructive pulmonary disease (COPD) (Acute) J44.1 H/O chronic hepatitis (Acute) Z87.19 Hepatic encephalopathy (Acute) K72.90 Pneumonia, organism unspecified (Acute) J18.9 S/P FALLL...POSS. HIP FX (Acute) - Assessment Assessment: hyponatremia dehydration syncope s/p fall h/o dm h/o htn h/o dyslipidemia h/o pud h/o gerd - Plan Plan: am labs fall precautions cpm
--- NOTE | 2017-01-27 14:42 | General Progress Note ---
Subjective - Review of Systems Service Date: 01/27/17 Subjective: Awake, better spirits, less body aches Objective - Results Result Diagrams: 01/27/17 05:35 01/27/17 05:35 Recent Labs: Laboratory Last Values WBC 2.6 Th/cmm (4.8-10.8) L 01/27/17 05:35 RBC 3.17 Mil/cmm (3.80-5.80) L 01/27/17 05:35 Hgb 10.2 gm/dL (12.6-17.4) L 01/27/17 05:35 Hct 29.8 % (39.0-49.0) L 01/27/17 05:35 MCV 94.2 fl (80-99) 01/27/17 05:35 MCH 32.1 pg (27.0-31.0) H 01/27/17 05:35 MCHC Differential 34.1 pg (28.0-36.0) 01/27/17 05:35 RDW 15.3 % (11.5-20.0) 01/27/17 05:35 Plt Count 46 Th/cmm (150-400) L D 01/27/17 05:35 MPV 6.3 fl 01/27/17 05:35 Neutrophils % 48.0 % (40.0-80.0) 01/25/17 21:35 Lymphocytes % 33.8 % (20.0-50.0) 01/25/17 21:35 Monocytes % 12.4 % (2.0-10.0) H 01/25/17 21:35 Eosinophils % 4.5 % (0.0-5.0) 01/25/17 21:35 Basophils % 1.3 % (0.0-2.0) 01/25/17 21:35 Neutrophils (Manual) 52 % (40-80) 01/27/17 05:35 Lymphocytes 28 % (20-50) 01/27/17 05:35 Monocytes 12 % (2-10) H 01/27/17 05:35 Eosinophils 6 % (0-5) H 01/27/17 05:35 Basophils 2 % (0-3) 01/27/17 05:35 Platelet Estimate DECREASED PLATELETS (NORMAL) 01/27/17 05:35 Platelet Morphology NORMAL (NORMAL) 01/27/17 05:35 RBC Morph Micro Appear NORMAL (NORMAL) 01/26/17 04:51 PT 13.6 SECONDS (9.5-11.5) H 01/25/17 21:35 INR 1.29 (0.5-1.4) 01/25/17 21:35 Sodium 129 mEq/L (136-145) L 01/27/17 05:35 Potassium 3.8 mEq/L (3.5-5.1) 01/27/17 05:35 Chloride 101 mEq/L (98-107) 01/27/17 05:35 Carbon Dioxide 23.8 mEq/L (21.0-31.0) 01/27/17 05:35 Anion Gap 8.0 (7.0-16.0) 01/27/17 05:35 BUN 8 mg/dL (7-25) 01/27/17 05:35 Creatinine 0.7 mg/dL (0.7-1.3) 01/27/17 05:35 Est GFR ( Amer) > 60.0 ml/min (>90) 01/27/17 05:35 Est GFR (Non-Af Amer) > 60.0 ml/min 01/27/17 05:35 BUN/Creatinine Ratio 11.4 01/27/17 05:35 Glucose 146 mg/dL (70-105) H 01/27/17 05:35 Uric Acid 4.9 mg/dL (4.4-7.6) 01/27/17 05:35 Calcium 8.4 mg/dL (8.6-10.3) L 01/27/17 05:35 Phosphorus 3.0 mg/dL (2.5-5.0) 01/27/17 05:35 Magnesium 1.7 mg/dL (1.9-2.7) L 01/27/17 05:35 Total Bilirubin 1.0 mg/dL (0.3-1.0) 01/27/17 05:35 AST 115 U/L (13-39) H 01/27/17 05:35 ALT 64 U/L (7-52) H 01/27/17 05:35 Alkaline Phosphatase 117 U/L (34-104) H 01/27/17 05:35 Creatine Kinase 104 U/L (30-223) 01/25/17 21:35 Troponin I 0.02 ng/mL (0.01-0.05) 01/25/17 21:35 B-Natriuretic Peptide 11.6 pg/mL (5.0-100.0) 01/25/17 21:35 Total Protein 5.8 gm/dL (6.0-8.3) L 01/27/17 05:35 Albumin 2.9 gm/dL (4.2-5.5) L 01/27/17 05:35 Globulin 2.9 gm/dL 01/27/17 05:35 Albumin/Globulin Ratio 1.0 (1.0-1.8) 01/27/17 05:35 Triglycerides 112 mg/dL (<150) 01/25/17 21:35 Cholesterol 76 mg/dL (<200) 01/25/17 21:35 LDL Cholesterol Direct 25 mg/dL (75-193) L 01/25/17 21:35 HDL Cholesterol 28 mg/dL (23-92) 01/25/17 21:35 TSH 4.23 uIU/ml (0.34-5.60) 01/27/17 05:35 Urine Source MIDSTREAM 01/26/17 17:23 Urine Color YELLOW 01/26/17 17:23 Urine Clarity CLEAR (CLEAR) 01/26/17 17:23 Urine pH 7.0 01/26/17 17:23 Ur Specific [place] 1.010 (1.005-1.030) 01/26/17 17:23 Urine Protein NEGATIVE mg/dL (NEGATIVE) 01/26/17 17:23 Urine Glucose (UA) NEGATIVE mg/dL (NEGATIVE) 01/26/17 17:23 Urine Ketones NEGATIVE mg/dL (NEGATIVE) 01/26/17 17:23 Urine Blood NEGATIVE (NEGATIVE) 01/26/17 17:23 Urine Nitrate NEGATIVE (NEGATIVE) 01/26/17 17:23 Urine Bilirubin NEGATIVE (NEGATIVE) 01/26/17 17:23 Urine Urobilinogen 0.2 E.U./dL (0.2 - 1.0) 01/26/17 17:23 Ur Leukocyte Esterase NEGATIVE (NEGATIVE) 01/26/17 17:23 Urine RBC NONE SEEN /hpf (0-5) 01/26/17 17:23 Urine WBC NONE SEEN /hpf (0-5) 01/26/17 17:23 Ur Epithelial Cells NONE SEEN /lpf (FEW) 01/26/17 17:23 Urine Bacteria NONE SEEN /hpf (NONE SEEN) 01/26/17 17:23 Ur Random Sodium 69 mmol/L 01/26/17 17:23 - Physical Exam Vitals and I&O: Vital Signs Temp 98.4 F 01/27/17 12:00 Pulse 88 01/27/17 12:00 Resp 20 01/27/17 12:00 BP 161/89 01/27/17 12:00 Pulse Ox 97 01/27/17 12:00 Intake & Output 01/26/17 01/27/17 01/27/17 18:59 06:59 18:59 Intake Total 4187.5 1543.75 1000 Output Total 3200 2400 Balance 987.5 -856.25 1000 Weight (lbs) 117.991 kg 117.622 kg 117.622 kg Intake: Intake, IV Amount 1837.5 893.75 1000 Sodium Chloride 0.9% 1, 1837.5 893.75 1000 000 ml @ 125 mls/hr IV . Q8H [facility] Rx#:[id number] Oral 2350 650 Output: Urine 3200 2400 Other: # Voids 1 # Bowel Movements 3 1 Stool Characteristics Soft Brown Active Medications: Current Medications Acetaminophen (Tylenol) 650 mg PO Q6H PRN PRN Reason: Fever >101 Stop: 03/27/17 13:27 Acetaminophen/Hydrocodone Bitart ([place] 5mg/325mg) 1 tab PO Q6H PRN PRN Reason: Pain (Severe) Stop: 03/27/17 18:05 Last Admin: 01/27/17 11:38 Dose: 1 tab Amitriptyline HCl (Elavil) 50 mg PO HS [facility] PRN Reason: Protocol Stop: 03/27/17 20:59 Last Admin: 01/26/17 20:50 Dose: 50 mg Aspirin (Aspirin Chewable) 81 mg PO DAILY [facility] Stop: 03/27/17 08:59 Last Admin: 01/27/17 09:08 Dose: 81 mg Benztropine Mesylate (Cogentin) 1 mg PO BID [facility] Stop: 03/27/17 08:59 Last Admin: 01/27/17 09:10 Dose: 1 mg Clonidine HCl (Catapres) 0.1 mg PO Q4HR PRN PRN Reason: FOR SBP>160 Stop: 03/27/17 05:00 Last Admin: 01/26/17 10:19 Dose: 0.1 mg Enalaprilat (Vasotec) 2.5 mg IVP Q6HR PRN PRN Reason: HIGH BLOOD PRESSURE Stop: 03/27/17 17:59 Last Admin: 01/26/17 13:15 Dose: 2.5 mg Ferrous Sulfate (Iron) 325 mg PO DAILY [facility] Stop: 03/27/17 08:59 Last Admin: 01/27/17 09:10 Dose: 325 mg Sodium Chloride (Nacl 0.9%) 1,000 mls @ 125 mls/hr IV .Q8H [facility] Stop: 03/27/17 00:03 Last Admin: 01/27/17 11:40 Dose: 125 mls/hr Lactobacillus Rhamnosus (Culturelle) 1 each PO DAILY [facility] Stop: 03/28/17 08:59 Last Admin: 01/27/17 09:10 Dose: 1 each Lactulose (Cephulac) 30 gm PO QID [facility] Stop: 03/27/17 08:59 Last Admin: 01/27/17 13:29 Dose: Not Given Lisinopril (Zestril) 20 mg PO BID [facility] Stop: 03/27/17 16:59 Last Admin: 01/27/17 09:13 Dose: 20 mg Lorazepam (Ativan) 1 mg PO Q6H PRN; Protocol PRN Reason: Anxiety Stop: 03/27/17 00:03 Last Admin: 01/26/17 09:31 Dose: 1 mg Miscellaneous (Probiotic Screen) 1 ea [facility] PRN PRN PRN Reason: PROTOCOL Stop: 03/27/17 11:24 Multivitamins/Vitamin C (Theragran) 1 tab PO DAILY [facility] Stop: 03/27/17 08:59 Last Admin: 01/27/17 09:10 Dose: 1 tab Pantoprazole Sodium (Protonix) 40 mg PO DAILY [facility] Stop: 03/27/17 08:59 Last Admin: 01/27/17 09:08 Dose: 40 mg Quetiapine Fumarate (Seroquel) 50 mg PO HS [facility] PRN Reason: Protocol Stop: 03/27/17 20:59 Last Admin: 01/26/17 20:50 Dose: 50 mg Sodium Chloride (Nacl Tab) 2 gm PO DAILY [facility] Stop: 03/27/17 08:59 Last Admin: 01/27/17 09:12 Dose: 2 gm Zolpidem Tartrate (Ambien) 5 mg PO HS PRN PRN Reason: Insomnia Stop: 03/27/17 00:03 Last Admin: 01/26/17 20:54 Dose: 5 mg General: Alert, No acute distress HEENT: Atraumatic Neck: Supple Cardiovascular: Regular rate, Normal S1, Normal S2 Lungs: Clear to auscultation Abdomen: Bowel sounds, Soft Extremities: no Edema Neurological: Sensation intact Skin: no Rash Psych/Mental Status: Mood NL Assessment/Plan - Problem List Patient Problems: All Active Problems Acute exacerbation of chronic obstructive pulmonary disease (COPD) (Acute) J44.1 H/O chronic hepatitis (Acute) Z87.19 Hepatic encephalopathy (Acute) K72.90 Pneumonia, organism unspecified (Acute) J18.9 S/P FALLL...POSS. HIP FX (Acute) - Assessment Assessment: Hyponatremia secondary to SIADH Dehydration Syncopal episode Type 2 diabetes mellitus Dyslipidemia Peptic ulcer disease/GERD - Plan Plan: Lab - Result Diagrams 01/27/17 05:35 01/27/17 05:35 Current Medications Acetaminophen (Tylenol) 650 mg PO Q6H PRN PRN Reason: Fever >101 Stop: 03/27/17 13:27 Acetaminophen/Hydrocodone Bitart ([place] 5mg/325mg) 1 tab PO Q6H PRN PRN Reason: Pain (Severe) Stop: 03/27/17 18:05 Last Admin: 01/27/17 11:38 Dose: 1 tab Amitriptyline HCl (Elavil) 50 mg PO HS [facility] PRN Reason: Protocol Stop: 03/27/17 20:59 Last Admin: 01/26/17 20:50 Dose: 50 mg Aspirin (Aspirin Chewable) 81 mg PO DAILY [facility] Stop: 03/27/17 08:59 Last Admin: 01/27/17 09:08 Dose: 81 mg Benztropine Mesylate (Cogentin) 1 mg PO BID [facility] Stop: 03/27/17 08:59 Last Admin: 01/27/17 09:10 Dose: 1 mg Clonidine HCl (Catapres) 0.1 mg PO Q4HR PRN PRN Reason: FOR SBP>160 Stop: 03/27/17 05:00 Last Admin: 01/26/17 10:19 Dose: 0.1 mg Enalaprilat (Vasotec) 2.5 mg IVP Q6HR PRN PRN Reason: HIGH BLOOD PRESSURE Stop: 03/27/17 17:59 Last Admin: 01/26/17 13:15 Dose: 2.5 mg Ferrous Sulfate (Iron) 325 mg PO DAILY [facility] Stop: 03/27/17 08:59 Last Admin: 01/27/17 09:10 Dose: 325 mg Sodium Chloride (Nacl 0.9%) 1,000 mls @ 125 mls/hr IV .Q8H [facility] Stop: 03/27/17 00:03 Last Admin: 01/27/17 11:40 Dose: 125 mls/hr Lactobacillus Rhamnosus (Culturelle) 1 each PO DAILY [facility] Stop: 03/28/17 08:59 Last Admin: 01/27/17 09:10 Dose: 1 each Lactulose (Cephulac) 30 gm PO QID [facility] Stop: 03/27/17 08:59 Last Admin: 01/27/17 13:29 Dose: Not Given Lisinopril (Zestril) 20 mg PO BID [facility] Stop: 03/27/17 16:59 Last Admin: 01/27/17 09:13 Dose: 20 mg Lorazepam (Ativan) 1 mg PO Q6H PRN; Protocol PRN Reason: Anxiety Stop: 03/27/17 00:03 Last Admin: 01/26/17 09:31 Dose: 1 mg Miscellaneous (Probiotic Screen) 1 ea [facility] PRN PRN PRN Reason: PROTOCOL Stop: 03/27/17 11:24 Multivitamins/Vitamin C (Theragran) 1 tab PO DAILY [facility] Stop: 03/27/17 08:59 Last Admin: 01/27/17 09:10 Dose: 1 tab Pantoprazole Sodium (Protonix) 40 mg PO DAILY [facility] Stop: 03/27/17 08:59 Last Admin: 01/27/17 09:08 Dose: 40 mg Quetiapine Fumarate (Seroquel) 50 mg PO HS [facility] PRN Reason: Protocol Stop: 03/27/17 20:59 Last Admin: 01/26/17 20:50 Dose: 50 mg Sodium Chloride (Nacl Tab) 2 gm PO DAILY [facility] Stop: 03/27/17 08:59 Last Admin: 5 mg PO HS PRN PRN Reason: Insomnia Stop: 03/27/17 00:03 Last Admin: 01/26/17 20:54 Dose: 5 mg Sodium continues to improve to 129 with administration of normal saline Continue to follow-up electrolytes Replace magnesium
[2017-01-27] MEDS ORDERED: Mag Sulfate 2gm/50mL Premix 2 GM/50 ML BAG IV ONE (14:43)
--- NOTE | 2017-01-28 03:03 | Consultation ---
DATE OF CONSULTATION: 01/27/2017 NEUROLOGY CONSULT HISTORY OF PRESENT ILLNESS: A 66-year-old male with episodes of passing out. The patient says he had gone to his ____ and there he was trying to transfer from his walker to the wheelchair and he kind of fell down. The patient did have loss of consciousness. It looks like may be possibly accidental fall, per patient no definite seizures. Also complained of some headache. PAST MEDICAL HISTORY: The patient with history of bipolar depression. He has been in board and care in the past. He had a fall and then hip fracture, subsequently has been in a halfway. The patient walks around with a walker, has been unsteady for some time. PAST MEDICAL HISTORY: 1.Hypertension. 2.History of diabetes, hyperlipidemia. PAST SURGICAL HISTORY: Hip surgery. REVIEW OF SYSTEMS: Twelve point negative except for above. MEDICATIONS: On admission as per reconciliation. He has been on a number of medications which included lorazepam, aspirin 81, hydrocodone, amitriptyline 50 mg, Cogentin, Seroquel 50 at bedtime and Ambien. ALLERGIES: None known. SOCIAL HISTORY: Does not smoke or drink. PHYSICAL EXAMINATION: VITAL SIGNS: Temperature 98.4, blood pressure 170/90, pulse is around 80. NECK: Supple. No bruits. HEART: Sounds S1, S2. LUNGS: Clear. NEUROLOGIC: The patient is awake, alert. The patient will answer questions. He gives me his name, his age. He is able to give me history. He knew the date. CRANIAL: Pupils react to light. Full eye movement. No nystagmus. No facial weakness. MOTOR: He will lift both arms up. There is some tremor, which is mainly some resting, but predominantly action tremor. I do not see any much cogwheel or rigidity. Lower extremity has a scar in the left knee. He lifts both legs up. Reflexes about -1 in upper extremity, essentially absent at the knees and ankles. INVESTIGATIONS: CT scan head, no acute process. IMPRESSION: 1.Fall. It seems like accidental. Cannot rule out syncope, no definite seizures. 2.At this time, the patient's CT scan head is negative. I will do a carotid Doppler study. 3.On admission, sodium was very low 112 ____ does the possibility of something like a seizure, but at the moment, we will watch him closely. 4.The patient has ataxia. Seems to me that probably with absence of reflexes, most likely neuropathy, though he should follow up outpatient with Neurology. JOB# [id number]
[2017-01-28] MEDS: Hydrocodone/APAP 5mg/325mg Tab PO PRN ×3 (04:30→20:53)
[2017-01-28 06:27] LABS: HEMATOCRIT 30.9 % (39.0-49.0); HEMOGLOBIN 10.6 gm/dL (12.6-17.4); MEAN CELL VOLUME 93.3 fl (80-99); MEAN CORPUSCULAR HGB CONC 34.3 pg (28.0-36.0); MEAN PLATELET VOLUME 7.3 fl; RED BLOOD COUNT 3.31 Mil/cmm (3.80-5.80); RED CELL DISTRIBUTION WIDTH 15.2 % (11.5-20.0)
[2017-01-28 06:48] LABS: WHITE BLOOD COUNT 2.5 Th/cmm (4.8-10.8)
[2017-01-28 06:52] LABS: ANION GAP 8.4 (7.0-16.0); BUN - UREA NITROGEN 7 mg/dL (7-25); CALCIUM SERUM 8.6 mg/dL (8.6-10.3); CARBON DIOXIDE 24.3 mEq/L (21.0-31.0); CHLORIDE 104 mEq/L (98-107); CREATININE - SERUM 0.7 mg/dL (0.7-1.3); GLUCOSE 119 mg/dL (70-105); POTASSIUM SERUM 3.7 mEq/L (3.5-5.1); SODIUM SERUM 133 mEq/L (136-145)
[2017-01-28 08:03] LABS: PLATELET COUNT 28 Th/cmm (150-400)
[2017-01-28 08:44] LABS: EOSINOPHIL 5 % (0-5); NEUTROPHILS 50 % (40-80); PLATELET ESTIMATE DECREASED PLATELETS (NORMAL); PLATELET MORPHOLOGY PLATELET CLUMPS SEEN (NORMAL); TOTAL CELLS COUNTED 100
[2017-01-28] MEDS: Benztropine 1 MG TAB PO SCH ×2 (08:48→16:21)
[2017-01-28] MEDS: Lactobacillus Rhamnosus 10 Billion CFU Capsule PO SCH (08:48)
[2017-01-28] MEDS: Pantoprazole 40 mg EC Tab PO SCH (08:48)
[2017-01-28] MEDS: Ferrous Sulfate 325 MG TAB PO SCH (08:48)
[2017-01-28] MEDS: Aspirin 81mg Chewable Tab PO SCH (08:48)
[2017-01-28] MEDS: Multivitamin Tab PO SCH (08:48)
[2017-01-28] MEDS: Lactulose 10 Gm/15 mL 30mL UDC PO SCH ×4 (08:49→20:54)
--- NOTE | 2017-01-28 13:31 | General Progress Note ---
Subjective - Review of Systems Service Date: 01/28/17 (f/u re hyponatremia) Events since last encounter: feel better Subjective: clinically better awake alert wants to go home Objective - Results Result Diagrams: 01/28/17 05:32 01/28/17 05:32 Recent Labs: Laboratory Last Values WBC 2.5 Th/cmm (4.8-10.8) L 01/28/17 05:32 RBC 3.31 Mil/cmm (3.80-5.80) L 01/28/17 05:32 Hgb 10.6 gm/dL (12.6-17.4) L 01/28/17 05:32 Hct 30.9 % (39.0-49.0) L 01/28/17 05:32 MCV 93.3 fl (80-99) 01/28/17 05:32 MCH 32.0 pg (27.0-31.0) H 01/28/17 05:32 MCHC Differential 34.3 pg (28.0-36.0) 01/28/17 05:32 RDW 15.2 % (11.5-20.0) 01/28/17 05:32 Plt Count 28 Th/cmm (150-400) L* D 01/28/17 05:32 MPV 7.3 fl 01/28/17 05:32 Neutrophils % 48.0 % (40.0-80.0) 01/25/17 21:35 Lymphocytes % 33.8 % (20.0-50.0) 01/25/17 21:35 Monocytes % 12.4 % (2.0-10.0) H 01/25/17 21:35 Eosinophils % 4.5 % (0.0-5.0) 01/25/17 21:35 Basophils % 1.3 % (0.0-2.0) 01/25/17 21:35 Neutrophils (Manual) 50 % (40-80) 01/28/17 05:32 Lymphocytes 30 % (20-50) 01/28/17 05:32 Monocytes 14 % (2-10) H 01/28/17 05:32 Eosinophils 5 % (0-5) 01/28/17 05:32 Basophils 2 % (0-3) 01/27/17 05:35 Atypical Lymphocytes 1 % 01/28/17 05:32 Platelet Estimate DECREASED PLATELETS (NORMAL) 01/28/17 05:32 Platelet Morphology PLATELET CLUMPS SEEN (NORMAL) 01/28/17 05:32 RBC Morph Micro Appear NORMAL (NORMAL) 01/28/17 05:32 PT 13.6 SECONDS (9.5-11.5) H 01/25/17 21:35 INR 1.29 (0.5-1.4) 01/25/17 21:35 Sodium 133 mEq/L (136-145) L 01/28/17 05:32 Potassium 3.7 mEq/L (3.5-5.1) 01/28/17 05:32 Chloride 104 mEq/L (98-107) 01/28/17 05:32 Carbon Dioxide 24.3 mEq/L (21.0-31.0) 01/28/17 05:32 Anion Gap 8.4 (7.0-16.0) 01/28/17 05:32 BUN 7 mg/dL (7-25) 01/28/17 05:32 Creatinine 0.7 mg/dL (0.7-1.3) 01/28/17 05:32 Est GFR ( Amer) > 60.0 ml/min (>90) 01/28/17 05:32 Est GFR (Non-Af Amer) > 60.0 ml/min 01/28/17 05:32 BUN/Creatinine Ratio 10.0 01/28/17 05:32 Glucose 119 mg/dL (70-105) H 01/28/17 05:32 Uric Acid 4.9 mg/dL (4.4-7.6) 01/27/17 05:35 Calcium 8.6 mg/dL (8.6-10.3) 01/28/17 05:32 Phosphorus 3.0 mg/dL (2.5-5.0) 01/27/17 05:35 Magnesium 1.9 mg/dL (1.9-2.7) 01/28/17 05:32 Total Bilirubin 1.0 mg/dL (0.3-1.0) 01/27/17 05:35 AST 115 U/L (13-39) H 01/27/17 05:35 ALT 64 U/L (7-52) H 01/27/17 05:35 Alkaline Phosphatase 117 U/L (34-104) H 01/27/17 05:35 Creatine Kinase 104 U/L (30-223) 01/25/17 21:35 Troponin I 0.02 ng/mL (0.01-0.05) 01/25/17 21:35 B-Natriuretic Peptide 11.6 pg/mL (5.0-100.0) 01/25/17 21:35 Total Protein 5.8 gm/dL (6.0-8.3) L 01/27/17 05:35 Albumin 2.9 gm/dL (4.2-5.5) L 01/27/17 05:35 Globulin 2.9 gm/dL 01/27/17 05:35 Albumin/Globulin Ratio 1.0 (1.0-1.8) 01/27/17 05:35 Triglycerides 112 mg/dL (<150) 01/25/17 21:35 Cholesterol 76 mg/dL (<200) 01/25/17 21:35 LDL Cholesterol Direct 25 mg/dL (75-193) L 01/25/17 21:35 HDL Cholesterol 28 mg/dL (23-92) 01/25/17 21:35 TSH 4.23 uIU/ml (0.34-5.60) 01/27/17 05:35 Urine Source MIDSTREAM 01/26/17 17:23 Urine Color YELLOW 01/26/17 17:23 Urine Clarity CLEAR (CLEAR) 01/26/17 17:23 Urine pH 7.0 01/26/17 17:23 Ur Specific [place] 1.010 (1.005-1.030) 01/26/17 17:23 Urine Protein NEGATIVE mg/dL (NEGATIVE) 01/26/17 17:23 Urine Glucose (UA) NEGATIVE mg/dL (NEGATIVE) 01/26/17 17:23 Urine Ketones NEGATIVE mg/dL (NEGATIVE) 01/26/17 17:23 Urine Blood NEGATIVE (NEGATIVE) 01/26/17 17:23 Urine Nitrate NEGATIVE (NEGATIVE) 01/26/17 17:23 Urine Bilirubin NEGATIVE (NEGATIVE) 01/26/17 17:23 Urine Urobilinogen 0.2 E.U./dL (0.2 - 1.0) 01/26/17 17:23 Ur Leukocyte Esterase NEGATIVE (NEGATIVE) 01/26/17 17:23 Urine RBC NONE SEEN /hpf (0-5) 01/26/17 17:23 Urine WBC NONE SEEN /hpf (0-5) 01/26/17 17:23 Ur Epithelial Cells NONE SEEN /lpf (FEW) 01/26/17 17:23 Urine Bacteria NONE SEEN /hpf (NONE SEEN) 01/26/17 17:23 Ur Random Sodium 69 mmol/L 01/26/17 17:23 - Physical Exam Vitals and I&O: Vital Signs Temp 98.0 F 01/28/17 10:55 Pulse 88 01/28/17 10:55 Resp 17 01/28/17 10:55 BP 167/97 01/28/17 10:55 Pulse Ox 99 01/28/17 10:55 Intake & Output 01/27/17 01/28/17 01/28/17 18:59 06:59 18:59 Intake Total 5971.385 3443.75 400 Output Total 1800 Balance 1558.333 -146.25 400 Weight (lbs) 117.622 kg 117.027 kg 117.027 kg Intake: Intake, IV Amount 1558.333 693.75 Sodium Chloride 0.9% 1, 1558.333 693.75 000 ml @ 125 mls/hr IV . Q8H [facility] Rx#:[id number] Oral 960 400 Output: Urine 1800 Other: # Bowel Movements 1 1 Active Medications: Current Medications Acetaminophen (Tylenol) 650 mg PO Q6H PRN PRN Reason: Fever >101 Stop: 03/27/17 13:27 Acetaminophen/Hydrocodone Bitart ([place] 5mg/325mg) 1 tab PO Q6H PRN PRN Reason: Pain (Severe) Stop: 03/27/17 18:05 Last Admin: 01/28/17 10:42 Dose: 1 tab Amitriptyline HCl (Elavil) 50 mg PO HS [facility] PRN Reason: Protocol Stop: 03/27/17 20:59 Last Admin: 01/27/17 21:41 Dose: 50 mg Aspirin (Aspirin Chewable) 81 mg PO DAILY [facility] Stop: 03/27/17 08:59 Last Admin: 01/28/17 08:48 Dose: 81 mg Benztropine Mesylate (Cogentin) 1 mg PO BID [facility] Stop: 03/27/17 08:59 Last Admin: 01/28/17 08:48 Dose: 1 mg Clonidine HCl (Catapres) 0.1 mg PO Q4HR PRN PRN Reason: FOR SBP>160 Stop: 03/27/17 05:00 Last Admin: 01/26/17 10:19 Dose: 0.1 mg Enalaprilat (Vasotec) 2.5 mg IVP Q6HR PRN PRN Reason: HIGH BLOOD PRESSURE Stop: 03/27/17 17:59 Last Admin: 01/26/17 13:15 Dose: 2.5 mg Ferrous Sulfate (Iron) 325 mg PO DAILY [facility] Stop: 03/27/17 08:59 Last Admin: 01/28/17 08:48 Dose: 325 mg Sodium Chloride (Nacl 0.9%) 1,000 mls @ 125 mls/hr IV .Q8H [facility] Stop: 03/27/17 00:03 Last Admin: 01/27/17 21:41 Dose: 125 mls/hr Lactobacillus Rhamnosus (Culturelle) 1 each PO DAILY [facility] Stop: 03/28/17 08:59 Last Admin: 01/28/17 08:48 Dose: 1 each Lactulose (Cephulac) 30 gm PO QID [facility] Stop: 03/27/17 08:59 Last Admin: 01/28/17 12:09 Dose: Not Given Lisinopril (Zestril) 20 mg PO BID [facility] Stop: 03/27/17 16:59 Last Admin: 01/28/17 08:48 Dose: 20 mg Lorazepam (Ativan) 1 mg PO Q6H PRN; Protocol PRN Reason: Anxiety Stop: 03/27/17 00:03 Last Admin: 01/26/17 09:31 Dose: 1 mg Miscellaneous (Probiotic Screen) 1 ea MC PRN PRN PRN Reason: PROTOCOL Stop: 03/27/17 11:24 Multivitamins/Vitamin C (Theragran) 1 tab PO DAILY [facility] Stop: 03/27/17 08:59 Last Admin: 01/28/17 08:48 Dose: 1 tab Pantoprazole Sodium (Protonix) 40 mg PO DAILY [facility] Stop: 03/27/17 08:59 Last Admin: 01/28/17 08:48 Dose: 40 mg Quetiapine Fumarate (Seroquel) 50 mg PO HS [facility] PRN Reason: Protocol Stop: 03/27/17 20:59 Last Admin: 01/27/17 21:41 Dose: 50 mg Sodium Chloride (Nacl Tab) 2 gm PO DAILY [facility] Stop: 03/27/17 08:59 Last Admin: 01/28/17 08:48 Dose: 2 gm Zolpidem Tartrate (Ambien) 5 mg PO HS PRN PRN Reason: Insomnia Stop: 03/27/17 00:03 Last Admin: 01/27/17 21:41 Dose: 5 mg General: Alert (awake [place] responsive) HEENT: Atraumatic Neck: Supple Cardiovascular: Regular rate, Normal S1, Normal S2 Lungs: Clear to auscultation Abdomen: Bowel sounds (present), Soft Extremities: no Edema (no edema) Neurological: Sensation intact Skin: no Rash Psych/Mental Status: Mood NL Assessment/Plan - Problem List Patient Problems: All Active Problems Acute exacerbation of chronic obstructive pulmonary disease (COPD) (Acute) J44.1 H/O chronic hepatitis (Acute) Z87.19 Hepatic encephalopathy (Acute) K72.90 Pneumonia, organism unspecified (Acute) J18.9 S/P FALLL...POSS. HIP FX (Acute) - Plan Plan: discharge plan
[2017-01-28] MEDS: Sodium Chloride 0.9% 1,000 ML IV SCH ×3 (14:48→23:55)
--- NOTE | 2017-01-28 15:32 | General Progress Note ---
Subjective - Review of Systems Service Date: 01/28/17 Objective - Results Result Diagrams: 01/28/17 05:32 01/28/17 05:32 Recent Labs: Laboratory Last Values WBC 2.5 Th/cmm (4.8-10.8) L 01/28/17 05:32 RBC 3.31 Mil/cmm (3.80-5.80) L 01/28/17 05:32 Hgb 10.6 gm/dL (12.6-17.4) L 01/28/17 05:32 Hct 30.9 % (39.0-49.0) L 01/28/17 05:32 MCV 93.3 fl (80-99) 01/28/17 05:32 MCH 32.0 pg (27.0-31.0) H 01/28/17 05:32 MCHC Differential 34.3 pg (28.0-36.0) 01/28/17 05:32 RDW 15.2 % (11.5-20.0) 01/28/17 05:32 Plt Count 28 Th/cmm (150-400) L* D 01/28/17 05:32 MPV 7.3 fl 01/28/17 05:32 Neutrophils % 48.0 % (40.0-80.0) 01/25/17 21:35 Lymphocytes % 33.8 % (20.0-50.0) 01/25/17 21:35 Monocytes % 12.4 % (2.0-10.0) H 01/25/17 21:35 Eosinophils % 4.5 % (0.0-5.0) 01/25/17 21:35 Basophils % 1.3 % (0.0-2.0) 01/25/17 21:35 Neutrophils (Manual) 50 % (40-80) 01/28/17 05:32 Lymphocytes 30 % (20-50) 01/28/17 05:32 Monocytes 14 % (2-10) H 01/28/17 05:32 Eosinophils 5 % (0-5) 01/28/17 05:32 Basophils 2 % (0-3) 01/27/17 05:35 Atypical Lymphocytes 1 % 01/28/17 05:32 Platelet Estimate DECREASED PLATELETS (NORMAL) 01/28/17 05:32 Platelet Morphology PLATELET CLUMPS SEEN (NORMAL) 01/28/17 05:32 RBC Morph Micro Appear NORMAL (NORMAL) 01/28/17 05:32 PT 13.6 SECONDS (9.5-11.5) H 01/25/17 21:35 INR 1.29 (0.5-1.4) 01/25/17 21:35 Sodium 133 mEq/L (136-145) L 01/28/17 05:32 Potassium 3.7 mEq/L (3.5-5.1) 01/28/17 05:32 Chloride 104 mEq/L (98-107) 01/28/17 05:32 Carbon Dioxide 24.3 mEq/L (21.0-31.0) 01/28/17 05:32 Anion Gap 8.4 (7.0-16.0) 01/28/17 05:32 BUN 7 mg/dL (7-25) 01/28/17 05:32 Creatinine 0.7 mg/dL (0.7-1.3) 01/28/17 05:32 Est GFR ( Amer) > 60.0 ml/min (>90) 01/28/17 05:32 Est GFR (Non-Af Amer) > 60.0 ml/min 01/28/17 05:32 BUN/Creatinine Ratio 10.0 01/28/17 05:32 Glucose 119 mg/dL (70-105) H 01/28/17 05:32 Uric Acid 4.9 mg/dL (4.4-7.6) 01/27/17 05:35 Calcium 8.6 mg/dL (8.6-10.3) 01/28/17 05:32 Phosphorus 3.0 mg/dL (2.5-5.0) 01/27/17 05:35 Magnesium 1.9 mg/dL (1.9-2.7) 01/28/17 05:32 Total Bilirubin 1.0 mg/dL (0.3-1.0) 01/27/17 05:35 AST 115 U/L (13-39) H 01/27/17 05:35 ALT 64 U/L (7-52) H 01/27/17 05:35 Alkaline Phosphatase 117 U/L (34-104) H 01/27/17 05:35 Creatine Kinase 104 U/L (30-223) 01/25/17 21:35 Troponin I 0.02 ng/mL (0.01-0.05) 01/25/17 21:35 B-Natriuretic Peptide 11.6 pg/mL (5.0-100.0) 01/25/17 21:35 Total Protein 5.8 gm/dL (6.0-8.3) L 01/27/17 05:35 Albumin 2.9 gm/dL (4.2-5.5) L 01/27/17 05:35 Globulin 2.9 gm/dL 01/27/17 05:35 Albumin/Globulin Ratio 1.0 (1.0-1.8) 01/27/17 05:35 Triglycerides 112 mg/dL (<150) 01/25/17 21:35 Cholesterol 76 mg/dL (<200) 01/25/17 21:35 LDL Cholesterol Direct 25 mg/dL (75-193) L 01/25/17 21:35 HDL Cholesterol 28 mg/dL (23-92) 01/25/17 21:35 TSH 4.23 uIU/ml (0.34-5.60) 01/27/17 05:35 Urine Source MIDSTREAM 01/26/17 17:23 Urine Color YELLOW 01/26/17 17:23 Urine Clarity CLEAR (CLEAR) 01/26/17 17:23 Urine pH 7.0 01/26/17 17:23 Ur Specific [place] 1.010 (1.005-1.030) 01/26/17 17:23 Urine Protein NEGATIVE mg/dL (NEGATIVE) 01/26/17 17:23 Urine Glucose (UA) NEGATIVE mg/dL (NEGATIVE) 01/26/17 17:23 Urine Ketones NEGATIVE mg/dL (NEGATIVE) 01/26/17 17:23 Urine Blood NEGATIVE (NEGATIVE) 01/26/17 17:23 Urine Nitrate NEGATIVE (NEGATIVE) 01/26/17 17:23 Urine Bilirubin NEGATIVE (NEGATIVE) 01/26/17 17:23 Urine Urobilinogen 0.2 E.U./dL (0.2 - 1.0) 01/26/17 17:23 Ur Leukocyte Esterase NEGATIVE (NEGATIVE) 01/26/17 17:23 Urine RBC NONE SEEN /hpf (0-5) 01/26/17 17:23 Urine WBC NONE SEEN /hpf (0-5) 01/26/17 17:23 Ur Epithelial Cells NONE SEEN /lpf (FEW) 01/26/17 17:23 Urine Bacteria NONE SEEN /hpf (NONE SEEN) 01/26/17 17:23 Ur Random Sodium 69 mmol/L 01/26/17 17:23 - Physical Exam Vitals and I&O: Vital Signs Temp 98.0 F 01/28/17 10:55 Pulse 88 01/28/17 10:55 Resp 17 01/28/17 10:55 BP 167/97 01/28/17 10:55 Pulse Ox 99 01/28/17 10:55 Intake & Output 01/27/17 01/28/17 01/28/17 18:59 06:59 18:59 Intake Total 4018.223 8239.75 400 Output Total 1800 Balance 1558.333 853.75 400 Weight (lbs) 117.622 kg 117.027 kg 117.027 kg Intake: Intake, IV Amount 8905.093 9297.75 Sodium Chloride 0.9% 1, 0672.021 8671.75 000 ml @ 125 mls/hr IV . Q8H [facility] Rx#:[id number] Oral 960 400 Output: Urine 1800 Other: # Bowel Movements 1 1 Active Medications: Current Medications Acetaminophen (Tylenol) 650 mg PO Q6H PRN PRN Reason: Fever >101 Stop: 03/27/17 13:27 Last Admin: 01/28/17 14:51 Dose: 650 mg Acetaminophen/Hydrocodone Bitart ([place] 5mg/325mg) 1 tab PO Q6H PRN PRN Reason: Pain (Severe) Stop: 03/27/17 18:05 Last Admin: 01/28/17 10:42 Dose: 1 tab Amitriptyline HCl (Elavil) 50 mg PO HS [facility] PRN Reason: Protocol Stop: 03/27/17 20:59 Last Admin: 01/27/17 21:41 Dose: 50 mg Aspirin (Aspirin Chewable) 81 mg PO DAILY [facility] Stop: 03/27/17 08:59 Last Admin: 01/28/17 08:48 Dose: 81 mg Benztropine Mesylate (Cogentin) 1 mg PO BID [facility] Stop: 03/27/17 08:59 Last Admin: 01/28/17 08:48 Dose: 1 mg Clonidine HCl (Catapres) 0.1 mg PO Q4HR PRN PRN Reason: FOR SBP>160 Stop: 03/27/17 05:00 Last Admin: 01/26/17 10:19 Dose: 0.1 mg Enalaprilat (Vasotec) 2.5 mg IVP Q6HR PRN PRN Reason: HIGH BLOOD PRESSURE Stop: 03/27/17 17:59 Last Admin: 01/26/17 13:15 Dose: 2.5 mg Ferrous Sulfate (Iron) 325 mg PO DAILY [facility] Stop: 03/27/17 08:59 Last Admin: 01/28/17 08:48 Dose: 325 mg Sodium Chloride (Nacl 0.9%) 1,000 mls @ 125 mls/hr IV .Q8H [facility] Stop: 03/27/17 00:03 Last Admin: 01/28/17 14:48 Dose: 125 mls/hr Lactobacillus Rhamnosus (Culturelle) 1 each PO DAILY [facility] Stop: 03/28/17 08:59 Last Admin: 01/28/17 08:48 Dose: 1 each Lactulose (Cephulac) 30 gm PO QID [facility] Stop: 03/27/17 08:59 Last Admin: 01/28/17 12:09 Dose: Not Given Lisinopril (Zestril) 20 mg PO BID [facility] Stop: 03/27/17 16:59 Last Admin: 01/28/17 08:48 Dose: 20 mg Lorazepam (Ativan) 1 mg PO Q6H PRN; Protocol PRN Reason: Anxiety Stop: 03/27/17 00:03 Last Admin: 01/26/17 09:31 Dose: 1 mg Miscellaneous (Probiotic Screen) 1 ea [facility] PRN PRN PRN Reason: PROTOCOL Stop: 03/27/17 11:24 Multivitamins/Vitamin C (Theragran) 1 tab PO DAILY [facility] Stop: 03/27/17 08:59 Last Admin: 01/28/17 08:48 Dose: 1 tab Pantoprazole Sodium (Protonix) 40 mg PO DAILY [facility] Stop: 03/27/17 08:59 Last Admin: 01/28/17 08:48 Dose: 40 mg Quetiapine Fumarate (Seroquel) 50 mg PO HS [facility] PRN Reason: Protocol Stop: 03/27/17 20:59 Last Admin: 01/27/17 21:41 Dose: 50 mg Sodium Chloride (Nacl Tab) 2 gm PO DAILY [facility] Stop: 03/27/17 08:59 Last Admin: 01/28/17 08:48 Dose: 2 gm Zolpidem Tartrate (Ambien) 5 mg PO HS PRN PRN Reason: Insomnia Stop: 03/27/17 00:03 Last Admin: 01/27/17 21:41 Dose: 5 mg General: Alert (awake aalet responsive) HEENT: Atraumatic Neck: Supple Cardiovascular: Regular rate, Normal S1, Normal S2 Lungs: Clear to auscultation Abdomen: Bowel sounds (present), Soft Extremities: no Edema (no edema) Neurological: Sensation intact Skin: no Rash Psych/Mental Status: Mood NL Assessment/Plan - Problem List Patient Problems: All Active Problems Acute exacerbation of chronic obstructive pulmonary disease (COPD) (Acute) J44.1 H/O chronic hepatitis (Acute) Z87.19 Hepatic encephalopathy (Acute) K72.90 Pneumonia, organism unspecified (Acute) J18.9 S/P FALLL...POSS. HIP FX (Acute) - Assessment Assessment: Hepatitis C Cirrhosis Splenomegaly Chronic pancytopenia /hypersplenism No transfusion needed monitor cbc
--- NOTE | 2017-01-28 20:12 | Progress Notes ---
DATE: 01/28/2017 SUBJECTIVE: The patient was seen in his room, having breakfast. Per patient, he still feels weak, but denies any headache, denies any pain, denies any shortness of breath, otherwise the patient is in no acute distress. OBJECTIVE: VITAL SIGNS: Temperature 97.8, heart rate of 86, blood pressure 150/87, respiration of 18, 96% on room air. HEENT: Head is atraumatic and normocephalic. Eyes: Bilateral conjunctivae are clear. Bilateral pupils are equally round and reactive. NECK: Supple. No JVD. CARDIOVASCULAR: S1 and S2, without murmur. PULMONARY: Mild inspiratory wheezing noted. GASTROINTESTINAL: Soft, nontender, distended abdomen. MUSCULOSKELETAL: No clubbing, no cyanosis noted. ASSESSMENT: 1.Status post fall. 2.Hypertension. 3.Diabetes mellitus. 4.Hyperlipidemia. 5.Gastroesophageal reflux disease. 6.Schizophrenia. 7.Osteoarthritis. 8.Unsteady gait. 9.Syncopal episode. 10.Hyponatremia. PLAN: We will continue to keep the patient inpatient in Med/Surg Unit. We will follow up with the charging car operator to monitor the patient's electrolytes. Treatment plans were discussed with Dr. Nair. JOB# [id number]
[2017-01-29 06:10] LABS: HEMATOCRIT 30.8 % (39.0-49.0); HEMOGLOBIN 10.7 gm/dL (12.6-17.4); MEAN CORPUSCULAR HGB CONC 34.8 pg (28.0-36.0); MEAN PLATELET VOLUME 7.3 fl; RED BLOOD COUNT 3.35 Mil/cmm (3.80-5.80); RED CELL DISTRIBUTION WIDTH 15.1 % (11.5-20.0)
[2017-01-29 06:16] LABS: PLATELET COUNT 40 Th/cmm (150-400); WHITE BLOOD COUNT 2.6 Th/cmm (4.8-10.8)
[2017-01-29] MEDS: Ferrous Sulfate 325 MG TAB PO SCH (08:48)
[2017-01-29] MEDS: Benztropine 1 MG TAB PO SCH ×2 (08:49→16:30)
[2017-01-29] MEDS: Aspirin 81mg Chewable Tab PO SCH (08:49)
[2017-01-29] MEDS: Lactobacillus Rhamnosus 10 Billion CFU Capsule PO SCH (08:49)
[2017-01-29] MEDS: Multivitamin Tab PO SCH (08:49)
[2017-01-29] MEDS: Lactulose 10 Gm/15 mL 30mL UDC PO SCH ×3 (08:49→16:31)
[2017-01-29] MEDS: Pantoprazole 40 mg EC Tab PO SCH (08:49)
[2017-01-29] MEDS: Hydrocodone/APAP 5mg/325mg Tab PO PRN ×2 (08:58→15:54)
[2017-01-29 09:28] LABS: EOSINOPHIL 9 % (0-5); NEUTROPHILS 40 % (40-80); PLATELET ESTIMATE DECREASED PLATELETS (NORMAL); TOTAL CELLS COUNTED 100
[2017-01-29 09:29] LABS: PLATELET MORPHOLOGY PLATELET CLUMPS SEEN (NORMAL)
--- NOTE | 2017-01-29 10:38 | General Progress Note ---
Subjective - Review of Systems Events since last encounter: patient awake alert wants to go home Objective - Results Result Diagrams: 01/29/17 05:25 01/28/17 05:32 Recent Labs: Laboratory Last Values WBC 2.6 Th/cmm (4.8-10.8) L 01/29/17 05:25 RBC 3.35 Mil/cmm (3.80-5.80) L 01/29/17 05:25 Hgb 10.7 gm/dL (12.6-17.4) L 01/29/17 05:25 Hct 30.8 % (39.0-49.0) L 01/29/17 05:25 MCV 92.0 fl (80-99) 01/29/17 05:25 MCH 32.0 pg (27.0-31.0) H 01/29/17 05:25 MCHC Differential 34.8 pg (28.0-36.0) 01/29/17 05:25 RDW 15.1 % (11.5-20.0) 01/29/17 05:25 Plt Count 40 Th/cmm (150-400) L D 01/29/17 05:25 MPV 7.3 fl 01/29/17 05:25 Neutrophils % 48.0 % (40.0-80.0) 01/25/17 21:35 Lymphocytes % 33.8 % (20.0-50.0) 01/25/17 21:35 Monocytes % 12.4 % (2.0-10.0) H 01/25/17 21:35 Eosinophils % 4.5 % (0.0-5.0) 01/25/17 21:35 Basophils % 1.3 % (0.0-2.0) 01/25/17 21:35 Neutrophils (Manual) 40 % (40-80) 01/29/17 05:25 Lymphocytes 42 % (20-50) 01/29/17 05:25 Monocytes 9 % (2-10) 01/29/17 05:25 Eosinophils 9 % (0-5) H 01/29/17 05:25 Basophils 2 % (0-3) 01/27/17 05:35 Atypical Lymphocytes 1 % 01/28/17 05:32 Platelet Estimate DECREASED PLATELETS (NORMAL) 01/29/17 05:25 Platelet Morphology PLATELET CLUMPS SEEN (NORMAL) 01/29/17 05:25 RBC Morph Micro Appear NORMAL (NORMAL) 01/29/17 05:25 PT 13.6 SECONDS (9.5-11.5) H 01/25/17 21:35 INR 1.29 (0.5-1.4) 01/25/17 21:35 Sodium 133 mEq/L (136-145) L 01/28/17 05:32 Potassium 3.7 mEq/L (3.5-5.1) 01/28/17 05:32 Chloride 104 mEq/L (98-107) 01/28/17 05:32 Carbon Dioxide 24.3 mEq/L (21.0-31.0) 01/28/17 05:32 Anion Gap 8.4 (7.0-16.0) 01/28/17 05:32 BUN 7 mg/dL (7-25) 01/28/17 05:32 Creatinine 0.7 mg/dL (0.7-1.3) 01/28/17 05:32 Est GFR ( Amer) > 60.0 ml/min (>90) 01/28/17 05:32 Est GFR (Non-Af Amer) > 60.0 ml/min 01/28/17 05:32 BUN/Creatinine Ratio 10.0 01/28/17 05:32 Glucose 119 mg/dL (70-105) H 01/28/17 05:32 Uric Acid 4.9 mg/dL (4.4-7.6) 01/27/17 05:35 Calcium 8.6 mg/dL (8.6-10.3) 01/28/17 05:32 Phosphorus 3.0 mg/dL (2.5-5.0) 01/27/17 05:35 Magnesium 1.9 mg/dL (1.9-2.7) 01/28/17 05:32 Total Bilirubin 1.0 mg/dL (0.3-1.0) 01/27/17 05:35 AST 115 U/L (13-39) H 01/27/17 05:35 ALT 64 U/L (7-52) H 01/27/17 05:35 Alkaline Phosphatase 117 U/L (34-104) H 01/27/17 05:35 Creatine Kinase 104 U/L (30-223) 01/25/17 21:35 Troponin I 0.02 ng/mL (0.01-0.05) 01/25/17 21:35 B-Natriuretic Peptide 11.6 pg/mL (5.0-100.0) 01/25/17 21:35 Total Protein 5.8 gm/dL (6.0-8.3) L 01/27/17 05:35 Albumin 2.9 gm/dL (4.2-5.5) L 01/27/17 05:35 Globulin 2.9 gm/dL 01/27/17 05:35 Albumin/Globulin Ratio 1.0 (1.0-1.8) 01/27/17 05:35 Triglycerides 112 mg/dL (<150) 01/25/17 21:35 Cholesterol 76 mg/dL (<200) 01/25/17 21:35 LDL Cholesterol Direct 25 mg/dL (75-193) L 01/25/17 21:35 HDL Cholesterol 28 mg/dL (23-92) 01/25/17 21:35 TSH 4.23 uIU/ml (0.34-5.60) 01/27/17 05:35 Urine Source MIDSTREAM 01/26/17 17:23 Urine Color YELLOW 01/26/17 17:23 Urine Clarity CLEAR (CLEAR) 01/26/17 17:23 Urine pH 7.0 01/26/17 17:23 Ur Specific [place] 1.010 (1.005-1.030) 01/26/17 17:23 Urine Protein NEGATIVE mg/dL (NEGATIVE) 01/26/17 17:23 Urine Glucose (UA) NEGATIVE mg/dL (NEGATIVE) 01/26/17 17:23 Urine Ketones NEGATIVE mg/dL (NEGATIVE) 01/26/17 17:23 Urine Blood NEGATIVE (NEGATIVE) 01/26/17 17:23 Urine Nitrate NEGATIVE (NEGATIVE) 01/26/17 17:23 Urine Bilirubin NEGATIVE (NEGATIVE) 01/26/17 17:23 Urine Urobilinogen 0.2 E.U./dL (0.2 - 1.0) 01/26/17 17:23 Ur Leukocyte Esterase NEGATIVE (NEGATIVE) 01/26/17 17:23 Urine RBC NONE SEEN /hpf (0-5) 01/26/17 17:23 Urine WBC NONE SEEN /hpf (0-5) 01/26/17 17:23 Ur Epithelial Cells NONE SEEN /lpf (FEW) 01/26/17 17:23 Urine Bacteria NONE SEEN /hpf (NONE SEEN) 01/26/17 17:23 Ur Random Sodium 69 mmol/L 01/26/17 17:23 - Physical Exam Vitals and I&O: Vital Signs Temp 99.1 F 01/29/17 04:00 Pulse 87 01/29/17 08:49 Resp 16 01/29/17 08:05 BP 174/93 01/29/17 08:49 Pulse Ox 99 01/29/17 08:05 Intake & Output 01/28/17 01/29/17 01/29/17 18:59 06:59 18:59 Intake Total 400 2350.000 Output Total 800 Balance 400 1550.000 Weight (lbs) 117.027 kg 117.027 kg Intake: Intake, IV Amount 1900.000 Sodium Chloride 0.9% 1, 1900.000 000 ml @ 125 mls/hr IV . Q8H [facility] Rx#:[id number] Oral 400 450 Output: Urine 800 Other: # Bowel Movements 1 0 Active Medications: Current Medications Acetaminophen (Tylenol) 650 mg PO Q6H PRN PRN Reason: Fever >101 Stop: 03/27/17 13:27 Last Admin: 01/28/17 14:51 Dose: 650 mg Acetaminophen/Hydrocodone Bitart ([place] 5mg/325mg) 1 tab PO Q6H PRN PRN Reason: Pain (Severe) Stop: 03/27/17 18:05 Last Admin: 01/29/17 08:58 Dose: 1 tab Amitriptyline HCl (Elavil) 50 mg PO HS [facility] PRN Reason: Protocol Stop: 03/27/17 20:59 Last Admin: 01/28/17 20:53 Dose: 50 mg Aspirin (Aspirin Chewable) 81 mg PO DAILY [facility] Stop: 03/27/17 08:59 Last Admin: 01/29/17 08:49 Dose: 81 mg Benztropine Mesylate (Cogentin) 1 mg PO BID [facility] Stop: 03/27/17 08:59 Last Admin: 01/29/17 08:49 Dose: 1 mg Clonidine HCl (Catapres) 0.1 mg PO Q4HR PRN PRN Reason: FOR SBP>160 Stop: 03/27/17 05:00 Last Admin: 01/26/17 10:19 Dose: 0.1 mg Enalaprilat (Vasotec) 2.5 mg IVP Q6HR PRN PRN Reason: HIGH BLOOD PRESSURE Stop: 03/27/17 17:59 Last Admin: 01/26/17 13:15 Dose: 2.5 mg Ferrous Sulfate (Iron) 325 mg PO DAILY [facility] Stop: 03/27/17 08:59 Last Admin: 01/29/17 08:48 Dose: 325 mg Sodium Chloride (Nacl 0.9%) 1,000 mls @ 125 mls/hr IV .Q8H [facility] Stop: 03/27/17 00:03 Last Infusion: 01/29/17 06:00 Dose: 125 mls/hr Lactobacillus Rhamnosus (Culturelle) 1 each PO DAILY [facility] Stop: 03/28/17 08:59 Last Admin: 01/29/17 08:49 Dose: 1 each Lactulose (Cephulac) 30 gm PO QID [facility] Stop: 03/27/17 08:59 Last Admin: 01/29/17 08:49 Dose: Not Given Lisinopril (Zestril) 20 mg PO BID [facility] Stop: 03/27/17 16:59 Last Admin: 01/29/17 08:49 Dose: 20 mg Lorazepam (Ativan) 1 mg PO Q6H PRN; Protocol PRN Reason: Anxiety Stop: 03/27/17 00:03 Last Admin: 01/26/17 09:31 Dose: 1 mg Miscellaneous (Probiotic Screen) 1 ea [facility] PRN PRN PRN Reason: PROTOCOL Stop: 03/27/17 11:24 Multivitamins/Vitamin C (Theragran) 1 tab PO DAILY [facility] Stop: 03/27/17 08:59 Last Admin: 01/29/17 08:49 Dose: 1 tab Pantoprazole Sodium (Protonix) 40 mg PO DAILY [facility] Stop: 03/27/17 08:59 Last Admin: 01/29/17 08:49 Dose: 40 mg Quetiapine Fumarate (Seroquel) 50 mg PO HS [facility] PRN Reason: Protocol Stop: 03/27/17 20:59 Last Admin: 01/28/17 20:53 Dose: 50 mg Sodium Chloride (Nacl Tab) 2 gm PO DAILY [facility] Stop: 03/27/17 08:59 Last Admin: 01/29/17 08:49 Dose: 2 gm Zolpidem Tartrate (Ambien) 5 mg PO HS PRN PRN Reason: Insomnia Stop: 03/27/17 00:03 Last Admin: 01/27/17 21:41 Dose: 5 mg General: Alert (awake [place]alet responsive) HEENT: Atraumatic Neck: Supple Cardiovascular: Regular rate, Normal S1, Normal S2 Lungs: Clear to auscultation Abdomen: Bowel sounds (present), Soft Extremities: no Edema (no edema) Neurological: Sensation intact Skin: no Rash Psych/Mental Status: Mood NL Assessment/Plan - Problem List Patient Problems: All Active Problems Acute exacerbation of chronic obstructive pulmonary disease (COPD) (Acute) J44.1 H/O chronic hepatitis (Acute) Z87.19 Hepatic encephalopathy (Acute) K72.90 Pneumonia, organism unspecified (Acute) J18.9 S/P FALLL...POSS. HIP FX (Acute) - Assessment Assessment: hyponatremia dehydration syncope s/p fall h/o dm h/o htn h/o dyslipidemia h/o pud h/o gerd - Plan Plan: am labs fall precautions cpm
--- NOTE | 2017-01-29 10:48 | Diagnostic Imaging Report ---
Carotid ultrasound HISTORY: TIA COMPARISON: None Technique: Longitudinal and transverse sonographic sector images of the carotid arteries were obtained with doppler analysis. FINDINGS: Exam of the right side demonstrates generalized intimal thickening and mild generalized atherosclerotic vascular disease. Exam of the left side demonstrates generalized intimal thickening and mild generalized atherosclerotic vascular disease. The velocity and velocity ratios are within normal limits. Antegrade vertebral artery flow is demonstrated bilaterally. IMPRESSION: Mild atherosclerotic vascular disease. No evidence of hemodynamically significant stenosis.
--- NOTE | 2017-01-29 13:31 | Internal Medicine Prog Note ---
Internal Medicine Subjective - Subjective Service Date: 01/29/17 Patient seen and examined:: with staff Patient is:: awake Per staff patient has:: no adverse event Internal Medicine Objective - Results Result Diagrams: 01/29/17 05:25 01/28/17 05:32 Recent Labs: Laboratory Last Values WBC 2.6 Th/cmm (4.8-10.8) L 01/29/17 05:25 RBC 3.35 Mil/cmm (3.80-5.80) L 01/29/17 05:25 Hgb 10.7 gm/dL (12.6-17.4) L 01/29/17 05:25 Hct 30.8 % (39.0-49.0) L 01/29/17 05:25 MCV 92.0 fl (80-99) 01/29/17 05:25 MCH 32.0 pg (27.0-31.0) H 01/29/17 05:25 MCHC Differential 34.8 pg (28.0-36.0) 01/29/17 05:25 RDW 15.1 % (11.5-20.0) 01/29/17 05:25 Plt Count 40 Th/cmm (150-400) L D 01/29/17 05:25 MPV 7.3 fl 01/29/17 05:25 Neutrophils % 48.0 % (40.0-80.0) 01/25/17 21:35 Lymphocytes % 33.8 % (20.0-50.0) 01/25/17 21:35 Monocytes % 12.4 % (2.0-10.0) H 01/25/17 21:35 Eosinophils % 4.5 % (0.0-5.0) 01/25/17 21:35 Basophils % 1.3 % (0.0-2.0) 01/25/17 21:35 Neutrophils (Manual) 40 % (40-80) 01/29/17 05:25 Lymphocytes 42 % (20-50) 01/29/17 05:25 Monocytes 9 % (2-10) 01/29/17 05:25 Eosinophils 9 % (0-5) H 01/29/17 05:25 Basophils 2 % (0-3) 01/27/17 05:35 Atypical Lymphocytes 1 % 01/28/17 05:32 Platelet Estimate DECREASED PLATELETS (NORMAL) 01/29/17 05:25 Platelet Morphology PLATELET CLUMPS SEEN (NORMAL) 01/29/17 05:25 RBC Morph Micro Appear NORMAL (NORMAL) 01/29/17 05:25 PT 13.6 SECONDS (9.5-11.5) H 01/25/17 21:35 INR 1.29 (0.5-1.4) 01/25/17 21:35 Sodium 133 mEq/L (136-145) L 01/28/17 05:32 Potassium 3.7 mEq/L (3.5-5.1) 01/28/17 05:32 Chloride 104 mEq/L (98-107) 01/28/17 05:32 Carbon Dioxide 24.3 mEq/L (21.0-31.0) 01/28/17 05:32 Anion Gap 8.4 (7.0-16.0) 01/28/17 05:32 BUN 7 mg/dL (7-25) 01/28/17 05:32 Creatinine 0.7 mg/dL (0.7-1.3) 01/28/17 05:32 Est GFR ( Amer) > 60.0 ml/min (>90) 01/28/17 05:32 Est GFR (Non-Af Amer) > 60.0 ml/min 01/28/17 05:32 BUN/Creatinine Ratio 10.0 01/28/17 05:32 Glucose 119 mg/dL (70-105) H 01/28/17 05:32 Uric Acid 4.9 mg/dL (4.4-7.6) 01/27/17 05:35 Calcium 8.6 mg/dL (8.6-10.3) 01/28/17 05:32 Phosphorus 3.0 mg/dL (2.5-5.0) 01/27/17 05:35 Magnesium 1.9 mg/dL (1.9-2.7) 01/28/17 05:32 Total Bilirubin 1.0 mg/dL (0.3-1.0) 01/27/17 05:35 AST 115 U/L (13-39) H 01/27/17 05:35 ALT 64 U/L (7-52) H 01/27/17 05:35 Alkaline Phosphatase 117 U/L (34-104) H 01/27/17 05:35 Creatine Kinase 104 U/L (30-223) 01/25/17 21:35 Troponin I 0.02 ng/mL (0.01-0.05) 01/25/17 21:35 B-Natriuretic Peptide 11.6 pg/mL (5.0-100.0) 01/25/17 21:35 Total Protein 5.8 gm/dL (6.0-8.3) L 01/27/17 05:35 Albumin 2.9 gm/dL (4.2-5.5) L 01/27/17 05:35 Globulin 2.9 gm/dL 01/27/17 05:35 Albumin/Globulin Ratio 1.0 (1.0-1.8) 01/27/17 05:35 Triglycerides 112 mg/dL (<150) 01/25/17 21:35 Cholesterol 76 mg/dL (<200) 01/25/17 21:35 LDL Cholesterol Direct 25 mg/dL (75-193) L 01/25/17 21:35 HDL Cholesterol 28 mg/dL (23-92) 01/25/17 21:35 TSH 4.23 uIU/ml (0.34-5.60) 01/27/17 05:35 Urine Source MIDSTREAM 01/26/17 17:23 Urine Color YELLOW 01/26/17 17:23 Urine Clarity CLEAR (CLEAR) 01/26/17 17:23 Urine pH 7.0 01/26/17 17:23 Ur Specific [place] 1.010 (1.005-1.030) 01/26/17 17:23 Urine Protein NEGATIVE mg/dL (NEGATIVE) 01/26/17 17:23 Urine Glucose (UA) NEGATIVE mg/dL (NEGATIVE) 01/26/17 17:23 Urine Ketones NEGATIVE mg/dL (NEGATIVE) 01/26/17 17:23 Urine Blood NEGATIVE (NEGATIVE) 01/26/17 17:23 Urine Nitrate NEGATIVE (NEGATIVE) 01/26/17 17:23 Urine Bilirubin NEGATIVE (NEGATIVE) 01/26/17 17:23 Urine Urobilinogen 0.2 E.U./dL (0.2 - 1.0) 01/26/17 17:23 Ur Leukocyte Esterase NEGATIVE (NEGATIVE) 01/26/17 17:23 Urine RBC NONE SEEN /hpf (0-5) 01/26/17 17:23 Urine WBC NONE SEEN /hpf (0-5) 01/26/17 17:23 Ur Epithelial Cells NONE SEEN /lpf (FEW) 01/26/17 17:23 Urine Bacteria NONE SEEN /hpf (NONE SEEN) 01/26/17 17:23 Ur Random Sodium 69 mmol/L 01/26/17 17:23 - Physical Exam Vitals and I&O: Vital Signs Temp 99.1 F 01/29/17 04:00 Pulse 87 01/29/17 08:49 Resp 16 01/29/17 08:05 BP 174/93 01/29/17 08:49 Pulse Ox 99 01/29/17 08:05 Intake & Output 01/28/17 01/29/17 01/29/17 18:59 06:59 18:59 Intake Total 400 2350.000 Output Total 800 Balance 400 1550.000 Weight (lbs) 117.027 kg 117.027 kg Intake: Intake, IV Amount 1900.000 Sodium Chloride 0.9% 1, 1900.000 000 ml @ 125 mls/hr IV . Q8H [facility] Rx#:[id number] Oral 400 450 Output: Urine 800 Other: # Bowel Movements 1 0 Active Medications: Current Medications Acetaminophen (Tylenol) 650 mg PO Q6H PRN PRN Reason: Fever >101 Stop: 03/27/17 13:27 Last Admin: 01/28/17 14:51 Dose: 650 mg Acetaminophen/Hydrocodone Bitart ([place] 5mg/325mg) 1 tab PO Q6H PRN PRN Reason: Pain (Severe) Stop: 03/27/17 18:05 Last Admin: 01/29/17 08:58 Dose: 1 tab Amitriptyline HCl (Elavil) 50 mg PO HS [facility] PRN Reason: Protocol Stop: 03/27/17 20:59 Last Admin: 01/28/17 20:53 Dose: 50 mg Aspirin (Aspirin Chewable) 81 mg PO DAILY [facility] Stop: 03/27/17 08:59 Last Admin: 01/29/17 08:49 Dose: 81 mg Benztropine Mesylate (Cogentin) 1 mg PO BID [facility] Stop: 03/27/17 08:59 Last Admin: 01/29/17 08:49 Dose: 1 mg Clonidine HCl (Catapres) 0.1 mg PO Q4HR PRN PRN Reason: FOR SBP>160 Stop: 03/27/17 05:00 Last Admin: 01/26/17 10:19 Dose: 0.1 mg Enalaprilat (Vasotec) 2.5 mg IVP Q6HR PRN PRN Reason: HIGH BLOOD PRESSURE Stop: 03/27/17 17:59 Last Admin: 01/26/17 13:15 Dose: 2.5 mg Ferrous Sulfate (Iron) 325 mg PO DAILY [facility] Stop: 03/27/17 08:59 Last Admin: 01/29/17 08:48 Dose: 325 mg Sodium Chloride (Nacl 0.9%) 1,000 mls @ 125 mls/hr IV .Q8H [facility] Stop: 03/27/17 00:03 Last Infusion: 01/29/17 06:00 Dose: 125 mls/hr Lactobacillus Rhamnosus (Culturelle) 1 each PO DAILY [facility] Stop: 03/28/17 08:59 Last Admin: 01/29/17 08:49 Dose: 1 each Lactulose (Cephulac) 30 gm PO QID [facility] Stop: 03/27/17 08:59 Last Admin: 01/29/17 12:42 Dose: Not Given Lisinopril (Zestril) 20 mg PO BID [facility] Stop: 03/27/17 16:59 Last Admin: 01/29/17 08:49 Dose: 20 mg Lorazepam (Ativan) 1 mg PO Q6H PRN; Protocol PRN Reason: Anxiety Stop: 03/27/17 00:03 Last Admin: 01/26/17 09:31 Dose: 1 mg Miscellaneous (Probiotic Screen) 1 ea MC PRN PRN PRN Reason: PROTOCOL Stop: 03/27/17 11:24 Multivitamins/Vitamin C (Theragran) 1 tab PO DAILY [facility] Stop: 03/27/17 08:59 Last Admin: 01/29/17 08:49 Dose: 1 tab Pantoprazole Sodium (Protonix) 40 mg PO DAILY [facility] Stop: 03/27/17 08:59 Last Admin: 01/29/17 08:49 Dose: 40 mg Quetiapine Fumarate (Seroquel) 50 mg PO HS [facility] PRN Reason: Protocol Stop: 03/27/17 20:59 Last Admin: 01/28/17 20:53 Dose: 50 mg Sodium Chloride (Nacl Tab) 2 gm PO DAILY [facility] Stop: 03/27/17 08:59 Last Admin: 01/29/17 08:49 Dose: 2 gm Zolpidem Tartrate (Ambien) 5 mg PO HS PRN PRN Reason: Insomnia Stop: 03/27/17 00:03 Last Admin: 01/27/17 21:41 Dose: 5 mg General: alert HEENT: NC/AT, PERRLA Neck: Supple Lungs: CTAB Abdomen: soft, non-tender, non-distended Extremities: clear Neurological: no change, alert Internal Medicine Assmt/Plan - Assessment Assessment: hyponatremia dehydration syncope s/p fall h/o dm h/o htn h/o dyslipidemia h/o pud h/o gerd - Plan Plan: am labs fall precautions cpm
[2017-01-29] MEDS: Sodium Chloride 0.9% 1,000 ML IV SCH (13:57)
--- NOTE | 2017-01-29 16:27 | General Progress Note ---
Subjective - Review of Systems Subjective: clinically better awake alert wants to go home Objective - Results Result Diagrams: 01/29/17 05:25 01/28/17 05:32 Recent Labs: Laboratory Last Values WBC 2.6 Th/cmm (4.8-10.8) L 01/29/17 05:25 RBC 3.35 Mil/cmm (3.80-5.80) L 01/29/17 05:25 Hgb 10.7 gm/dL (12.6-17.4) L 01/29/17 05:25 Hct 30.8 % (39.0-49.0) L 01/29/17 05:25 MCV 92.0 fl (80-99) 01/29/17 05:25 MCH 32.0 pg (27.0-31.0) H 01/29/17 05:25 MCHC Differential 34.8 pg (28.0-36.0) 01/29/17 05:25 RDW 15.1 % (11.5-20.0) 01/29/17 05:25 Plt Count 40 Th/cmm (150-400) L D 01/29/17 05:25 MPV 7.3 fl 01/29/17 05:25 Neutrophils % 48.0 % (40.0-80.0) 01/25/17 21:35 Lymphocytes % 33.8 % (20.0-50.0) 01/25/17 21:35 Monocytes % 12.4 % (2.0-10.0) H 01/25/17 21:35 Eosinophils % 4.5 % (0.0-5.0) 01/25/17 21:35 Basophils % 1.3 % (0.0-2.0) 01/25/17 21:35 Neutrophils (Manual) 40 % (40-80) 01/29/17 05:25 Lymphocytes 42 % (20-50) 01/29/17 05:25 Monocytes 9 % (2-10) 01/29/17 05:25 Eosinophils 9 % (0-5) H 01/29/17 05:25 Basophils 2 % (0-3) 01/27/17 05:35 Atypical Lymphocytes 1 % 01/28/17 05:32 Platelet Estimate DECREASED PLATELETS (NORMAL) 01/29/17 05:25 Platelet Morphology PLATELET CLUMPS SEEN (NORMAL) 01/29/17 05:25 RBC Morph Micro Appear NORMAL (NORMAL) 01/29/17 05:25 PT 13.6 SECONDS (9.5-11.5) H 01/25/17 21:35 INR 1.29 (0.5-1.4) 01/25/17 21:35 Sodium 133 mEq/L (136-145) L 01/28/17 05:32 Potassium 3.7 mEq/L (3.5-5.1) 01/28/17 05:32 Chloride 104 mEq/L (98-107) 01/28/17 05:32 Carbon Dioxide 24.3 mEq/L (21.0-31.0) 01/28/17 05:32 Anion Gap 8.4 (7.0-16.0) 01/28/17 05:32 BUN 7 mg/dL (7-25) 01/28/17 05:32 Creatinine 0.7 mg/dL (0.7-1.3) 01/28/17 05:32 Est GFR ( Amer) > 60.0 ml/min (>90) 01/28/17 05:32 Est GFR (Non-Af Amer) > 60.0 ml/min 01/28/17 05:32 BUN/Creatinine Ratio 10.0 01/28/17 05:32 Glucose 119 mg/dL (70-105) H 01/28/17 05:32 Uric Acid 4.9 mg/dL (4.4-7.6) 01/27/17 05:35 Calcium 8.6 mg/dL (8.6-10.3) 01/28/17 05:32 Phosphorus 3.0 mg/dL (2.5-5.0) 01/27/17 05:35 Magnesium 1.9 mg/dL (1.9-2.7) 01/28/17 05:32 Total Bilirubin 1.0 mg/dL (0.3-1.0) 01/27/17 05:35 AST 115 U/L (13-39) H 01/27/17 05:35 ALT 64 U/L (7-52) H 01/27/17 05:35 Alkaline Phosphatase 117 U/L (34-104) H 01/27/17 05:35 Creatine Kinase 104 U/L (30-223) 01/25/17 21:35 Troponin I 0.02 ng/mL (0.01-0.05) 01/25/17 21:35 B-Natriuretic Peptide 11.6 pg/mL (5.0-100.0) 01/25/17 21:35 Total Protein 5.8 gm/dL (6.0-8.3) L 01/27/17 05:35 Albumin 2.9 gm/dL (4.2-5.5) L 01/27/17 05:35 Globulin 2.9 gm/dL 01/27/17 05:35 Albumin/Globulin Ratio 1.0 (1.0-1.8) 01/27/17 05:35 Triglycerides 112 mg/dL (<150) 01/25/17 21:35 Cholesterol 76 mg/dL (<200) 01/25/17 21:35 LDL Cholesterol Direct 25 mg/dL (75-193) L 01/25/17 21:35 HDL Cholesterol 28 mg/dL (23-92) 01/25/17 21:35 TSH 4.23 uIU/ml (0.34-5.60) 01/27/17 05:35 Urine Source MIDSTREAM 01/26/17 17:23 Urine Color YELLOW 01/26/17 17:23 Urine Clarity CLEAR (CLEAR) 01/26/17 17:23 Urine pH 7.0 01/26/17 17:23 Ur Specific [place] 1.010 (1.005-1.030) 01/26/17 17:23 Urine Protein NEGATIVE mg/dL (NEGATIVE) 01/26/17 17:23 Urine Glucose (UA) NEGATIVE mg/dL (NEGATIVE) 01/26/17 17:23 Urine Ketones NEGATIVE mg/dL (NEGATIVE) 01/26/17 17:23 Urine Blood NEGATIVE (NEGATIVE) 01/26/17 17:23 Urine Nitrate NEGATIVE (NEGATIVE) 01/26/17 17:23 Urine Bilirubin NEGATIVE (NEGATIVE) 01/26/17 17:23 Urine Urobilinogen 0.2 E.U./dL (0.2 - 1.0) 01/26/17 17:23 Ur Leukocyte Esterase NEGATIVE (NEGATIVE) 01/26/17 17:23 Urine RBC NONE SEEN /hpf (0-5) 01/26/17 17:23 Urine WBC NONE SEEN /hpf (0-5) 01/26/17 17:23 Ur Epithelial Cells NONE SEEN /lpf (FEW) 01/26/17 17:23 Urine Bacteria NONE SEEN /hpf (NONE SEEN) 01/26/17 17:23 Ur Random Sodium 69 mmol/L 01/26/17 17:23 - Physical Exam Vitals and I&O: Vital Signs Temp 97.8 F 01/29/17 12:00 Pulse 94 01/29/17 15:54 Resp 17 01/29/17 12:00 BP 167/86 01/29/17 15:54 Pulse Ox 98 01/29/17 12:00 Intake & Output 01/28/17 01/29/17 01/29/17 18:59 06:59 18:59 Intake Total 400 2350.000 239.583 Output Total 800 Balance 400 1550.000 239.583 Weight (lbs) 117.027 kg 117.027 kg Intake: Intake, IV Amount 1900.000 239.583 Sodium Chloride 0.9% 1, 1900.000 239.583 000 ml @ 125 mls/hr IV . Q8H [facility] Rx#:[id number] Oral 400 450 Output: Urine 800 Other: # Bowel Movements 1 0 Active Medications: Current Medications Acetaminophen (Tylenol) 650 mg PO Q6H PRN PRN Reason: Fever >101 Stop: 03/27/17 13:27 Last Admin: 01/28/17 14:51 Dose: 650 mg Acetaminophen/Hydrocodone Bitart ([place] 5mg/325mg) 1 tab PO Q6H PRN PRN Reason: Pain (Severe) Stop: 03/27/17 18:05 Last Admin: 01/29/17 15:54 Dose: 1 tab Amitriptyline HCl (Elavil) 50 mg PO HS [facility] PRN Reason: Protocol Stop: 03/27/17 20:59 Last Admin: 01/28/17 20:53 Dose: 50 mg Aspirin (Aspirin Chewable) 81 mg PO DAILY [facility] Stop: 03/27/17 08:59 Last Admin: 01/29/17 08:49 Dose: 81 mg Benztropine Mesylate (Cogentin) 1 mg PO BID [facility] Stop: 03/27/17 08:59 Last Admin: 01/29/17 08:49 Dose: 1 mg Clonidine HCl (Catapres) 0.1 mg PO Q4HR PRN PRN Reason: FOR SBP>160 Stop: 03/27/17 05:00 Last Admin: 01/29/17 13:56 Dose: 0.1 mg Enalaprilat (Vasotec) 2.5 mg IVP Q6HR PRN PRN Reason: HIGH BLOOD PRESSURE Stop: 03/27/17 17:59 Last Admin: 01/29/17 15:54 Dose: 2.5 mg Ferrous Sulfate (Iron) 325 mg PO DAILY [facility] Stop: 03/27/17 08:59 Last Admin: 01/29/17 08:48 Dose: 325 mg Sodium Chloride (Nacl 0.9%) 1,000 mls @ 125 mls/hr IV .Q8H [facility] Stop: 03/27/17 00:03 Last Admin: 01/29/17 13:57 Dose: 125 mls/hr Lactobacillus Rhamnosus (Culturelle) 1 each PO DAILY [facility] Stop: 03/28/17 08:59 Last Admin: 01/29/17 08:49 Dose: 1 each Lactulose (Cephulac) 30 gm PO QID [facility] Stop: 03/27/17 08:59 Last Admin: 01/29/17 12:42 Dose: Not Given Lisinopril (Zestril) 20 mg PO BID [facility] Stop: 03/27/17 16:59 Last Admin: 01/29/17 08:49 Dose: 20 mg Lorazepam (Ativan) 1 mg PO Q6H PRN; Protocol PRN Reason: Anxiety Stop: 03/27/17 00:03 Last Admin: 01/26/17 09:31 Dose: 1 mg Miscellaneous (Probiotic Screen) 1 ea PRN PRN PRN Reason: PROTOCOL Stop: 03/27/17 11:24 Multivitamins/Vitamin C (Theragran) 1 tab PO DAILY [facility] Stop: 03/27/17 08:59 Last Admin: 01/29/17 08:49 Dose: 1 tab Pantoprazole Sodium (Protonix) 40 mg PO DAILY [facility] Stop: 03/27/17 08:59 Last Admin: 01/29/17 08:49 Dose: 40 mg Quetiapine Fumarate (Seroquel) 50 mg PO HS [facility] PRN Reason: Protocol Stop: 03/27/17 20:59 Last Admin: 01/28/17 20:53 Dose: 50 mg Sodium Chloride (Nacl Tab) 2 gm PO DAILY [facility] Stop: 03/27/17 08:59 Last Admin: 01/29/17 08:49 Dose: 2 gm Zolpidem Tartrate (Ambien) 5 mg PO HS PRN PRN Reason: Insomnia Stop: 03/27/17 00:03 Last Admin: 01/27/17 21:41 Dose: 5 mg General: Alert (awake aalet responsive) HEENT: Atraumatic Neck: Supple Cardiovascular: Regular rate, Normal S1, Normal S2 Lungs: Clear to auscultation Abdomen: Bowel sounds (present), Soft Extremities: no Edema (no edema) Neurological: Sensation intact Skin: no Rash Psych/Mental Status: Mood NL Assessment/Plan - Problem List Patient Problems: All Active Problems Acute exacerbation of chronic obstructive pulmonary disease (COPD) (Acute) J44.1 H/O chronic hepatitis (Acute) Z87.19 Hepatic encephalopathy (Acute) K72.90 Pneumonia, organism unspecified (Acute) J18.9 S/P FALLL...POSS. HIP FX (Acute) - Plan Plan: discharge plan clinically imperove await discharge ;romario
== END 2017-01-29 18:00 | disposition home or self-care (01) | DRG 643 ==
LOC: ER 21:01 → ICU 23:15 → TELE 01-26 18:54 → MSI 01-27 13:24
PROVIDERS: ADMIT Internal Medicine; ATTEND Internal Medicine
DX: E22.2 Syndrome of inappropriate secretion of antidiuretic hormone (principal); G92 Toxic encephalopathy; R64 Cachexia; D61.818 Other pancytopenia; R16.1 Splenomegaly, not elsewhere classified; F25.9 Schizoaffective disorder, unspecified; B19.10 Unspecified viral hepatitis B without hepatic coma; B15.9 Hepatitis A without hepatic coma; K74.60 Unspecified cirrhosis of liver; E86.0 Dehydration; K27.9 Peptic ulcer, site unspecified, unspecified as acute or chronic, without hemorrhage or perforation; R55 Syncope and collapse; E11.9 Type 2 diabetes mellitus without complications; I10 Essential (primary) hypertension; E78.5 Hyperlipidemia, unspecified; R58 Hemorrhage, not elsewhere classified; K21.9 Gastro-esophageal reflux disease without esophagitis; W18.30XA Fall on same level, unspecified, initial encounter; F17.210 Nicotine dependence, cigarettes, uncomplicated; F31.9 Bipolar disorder, unspecified; B18.2 Chronic viral hepatitis C; J44.9 Chronic obstructive pulmonary disease, unspecified; S00.83XA Contusion of other part of head, initial encounter; S30.1XXA Contusion of abdominal wall, initial encounter; D63.8 Anemia in other chronic diseases classified elsewhere; M19.90 Unspecified osteoarthritis, unspecified site; D47.3 Essential (hemorrhagic) thrombocythemia; R27.0 Ataxia, unspecified; Y93.89 Activity, other specified; Y92.89 Other specified places as the place of occurrence of the external cause; Y99.8 Other external cause status; Z68.34 Body mass index [BMI] 34.0-34.9, adult; Z82.49 Family history of ischemic heart disease and other diseases of the circulatory system; Z79.82 Long term (current) use of aspirin; Z83.3 Family history of diabetes mellitus
CPT/HCPCS: 36415-UA; 70450-TC; 71010-TC; 80048-TC; 80053-TC; 80061-TC; 81001-TC; 82533-90; 82550-TC; 83735-TC; 83880-TC; 83930-90; 84100-TC; 84300-TC; 84443-TC; 84484-TC; 84550-TC; 85007-TC; 85025-TC; 85027-TC; 85610-TC; 90799; 93005; 93880-TC; 94760; J3475; J7030; Z7610

== ENCOUNTER 2017-02-17 18:33 | Inpatient (IN) | payer MEDICARE, MEDICAID ==
[2017-02-17 19:03] LABS: HEMATOCRIT 33.2 % (39.0-49.0); HEMOGLOBIN 11.5 gm/dL (12.6-17.4); MEAN CELL VOLUME 94.6 fl (80-99); MEAN CORPUSCULAR HEMOGLOBIN 32.9 pg (27.0-31.0); MEAN CORPUSCULAR HGB CONC 34.7 pg (28.0-36.0); MEAN PLATELET VOLUME 6.8 fl; RED BLOOD COUNT 3.51 Mil/cmm (3.80-5.80); RED CELL DISTRIBUTION WIDTH 14.6 % (11.5-20.0)
[2017-02-17 19:20] LABS: INR 1.21 (0.5-1.4); PROTHROMBIN TIME (TEST) 12.7 SECONDS (9.5-11.5)
[2017-02-17 19:22] LABS: ALB/GLOB RATIO 1.1 (1.0-1.8); ALKALINE PHOSPHATASE 119 U/L (34-104); BUN - UREA NITROGEN 5 mg/dL (7-25); BUN/CREATININE RATIO 7.1; CARBON DIOXIDE 24.2 mEq/L (21.0-31.0); CHLORIDE 95 mEq/L (98-107); CREATININE - SERUM 0.7 mg/dL (0.7-1.3); GLUCOSE 118 mg/dL (70-105); POTASSIUM SERUM 4.2 mEq/L (3.5-5.1); SGOT 87 U/L (13-39); SGPT/ALT 53 U/L (7-52); SODIUM SERUM 123 mEq/L (136-145)
[2017-02-17 19:23] LABS: CHOLESTEROL 88 mg/dL (<200); TRIGLYCERIDES 133 mg/dL (<150)
[2017-02-17 19:30] LABS: PLATELET COUNT 53 Th/cmm (150-400); WHITE BLOOD COUNT 3.5 Th/cmm (4.8-10.8)
[2017-02-17] MEDS ORDERED: Sodium Chloride 0.9% 1,000 ML IV ONE ×2 (19:37→22:20)
[2017-02-17 19:53] LABS: BASOPHIL 1 % (0-3); NEUTROPHILS 59 % (40-80); PLATELET ESTIMATE DECREASED PLATELETS (NORMAL); TOTAL CELLS COUNTED 100
--- NOTE | 2017-02-17 21:04 | ED Physician Chart ---
Chief Complaint/HPI - Patient Information Date Seen:: 02/17/17 Time Seen:: 19:00 Chief Complaint:: ABNORMAL LABS History of Present Illness:: THIS IS A 66 YO CHRONICALLY ILL MALE [facility] PATIENT SENT HERE FOR EVALUATION AND TREATMENT BECAUSE HIS LAB VALUES WERE ABNORMAL. HE HAS BEEN ADMITTED MULTIPLE TIMES BECAUSE OF LOW PLATELETS AND LOW RBC CELL COUNTS. HE ALSO HAS DEMENTIA AND BACK PROBLEMS. Allergies:: Allergies Allergy/AdvReac Type Severity Reaction Status Date / Time No Known Allergies Allergy Verified 11/22/16 22:14 Vitals:: Vital Signs - 8 hr 02/17/17 02/17/17 02/17/17 18:54 19:35 20:35 Temp 99.4 F HR 98 85 90 RR 19 12 16 BP 177/91 177/91 169/88 O2 Sat % 96 96 Historian:: Medical Records Review:: Nurse's Note Reviewed, Old Chart Reviewed, Transfer documents Reviewed Review of Systems - Review of Systems General/Constitutional: No fever, No chills, No weight loss, No weakness, No diaphoresis, No edema, No loss of appetite, Other (DEMENTIA PREVENTS HIS GIVING A REVIEW OF SYSTEMS) Skin: No skin lesions, No rash, No bruising Head: No headache, No light-headedness Eyes: No loss of vision, No pain, No diplopia ENT: No earache, No nasal drainage, No sore throat, No tinnitus Neck: No neck pain, No swelling, No thyromegaly, No stiffness, No mass noted Cardio Vascular: No chest pain, No palpitations, No PND, No orthopnea, No edema Pulmonary: No SOB, No cough, No sputum, No wheezing GI: No nausea, No vomiting, No diarrhea, No pain, No melena, No hematochezia, No constipation, No hematemesis G/U: No dysuria, No frequency, No hematuria Musculoskeletal: No bone or joint pain, No back pain, No muscle pain Endocrine: No polyuria, No polydipsia Psychiatric: No prior psych history, No depression, No anxiety, No suicidal ideation Hematopoietic: No bruising, No lymphadenopathy Allergic/Immuno: No urticaria, No angioedema Neurological: No syncope, No focal symptoms, No weakness, No paresthesia, No headache, No seizure, No dizziness, No confusion, No vertigo Past Medical History - Past Medical History Obtainable: Yes Past Medical History: HTN, Asthma/COPD, PUD/GERD, Dementia, Other (HEPATIC ENCEPHALOPATHY) Family History: None Social History: Non Smoker, No Alcohol, No Drug Use Surgical History: None Psychiatricy History: Dementia Medication: Reviewed Family Medical History - Family Member Mother History Unknown: Yes Ethnicity: Non- Living Status: Hx Family Cancer: No Hx Family Coronary Artery Disease: No Hx Family Congestive Heart Failure: No Hx Family Hypertension: No Hx Family Stroke: No Hx Family Diabetes: No Hx Family Seizures: No Hx Family Dementia: No Hx Family AIDS: No Hx Family HIV: No Hx Family COPD: No Hx Family Hepatitis: No Hx Family Psychiatric Problems: No Hx Family Tuberculosis: No unknown History Unknown: Yes Ethnicity: Non- Living Status: Hx Family Cancer: No Hx Family Coronary Artery Disease: No Hx Family Congestive Heart Failure: No Hx Family Hypertension: Yes Hx Family Stroke: No Hx Family Diabetes: No Hx Family Seizures: No Hx Family Dementia: No Hx Family AIDS: No Hx Family HIV: No Hx Family COPD: No Hx Family Hepatitis: No Hx Family Psychiatric Problems: No Hx Family Tuberculosis: No Father History Unknown: Yes Living Status: Sister History Unknown: Yes Ethnicity: Living Status: Physical Exam - Physical Examination General/Constitutional: Awake, Well-developed, well-nourished, Alert, No distress, GCS 15, Non-toxic appearing, Ambulatory Head: Atraumatic Eyes: Lids, conjuctiva normal, PERRL, EOMI Skin: Nl inspection, No rash, No skin lesions, No ecchymosis, Well hydrated, No lymphadenopathy ENMT: External ears, nose nl, Nasal exam nl, Lips, teeth, gums nl Neck: Nontender, Full ROM w/o pain, No JVD, No nuchal rigidity, No bruit, No mass, No stridor Respiratory: Nl effort/Exclusion, Clear to Auscultation, No Wheeze/Rhonchi/Rales Cardio Vascular: RRR, No murmur, gallop, rubs, NL S1 S2 GI: No tenderness/rebounding/guarding, No organomegaly, No hernia, Normal BS's, Nondistended, No mass/bruits, No McBurney tenderness : No CVA tenderness Extremities: No tenderness or effusion, Full ROM, normal strength in all extremities, No edema, Normal digits & nails Neuro/Psych: Alert/oriented, DTR's symmetric, Normal sensory exam, Normal motor strength, Judgement/insight normal, Mood normal, Normal gait, No focal deficits Misc: No paraspinal tenderness Other Misc comments:: PAINFUL ROM WITH PAIN Labs/Radiology/EKG Results - Lab Results Results: Laboratory Tests 02/17/17 02/17/17 02/17/17 18:54 18:54 18:54 WBC 3.5 L D RBC 3.51 L Hgb 11.5 L Hct 33.2 L MCV 94.6 MCH 32.9 H MCHC Differential 34.7 RDW 14.6 Plt Count 53 L D MPV 6.8 Neutrophils (Manual) 59 Lymphocytes 34 Monocytes 6 Basophils 1 Platelet Estimate DECREASED PLATELETS PT 12.7 H INR 1.21 Sodium Potassium Chloride Carbon Dioxide Anion Gap BUN Creatinine Est GFR ( Amer) Est GFR (Non-Af Amer) BUN/Creatinine Ratio Glucose Whole Bld Lactic Acid Calcium Total Bilirubin AST ALT Alkaline Phosphatase Troponin I Total Protein Albumin Globulin Albumin/Globulin Ratio Triglycerides 133 Cholesterol 88 LDL Cholesterol Direct 28 L HDL Cholesterol 30 TSH 02/17/17 02/17/17 02/17/17 18:54 18:54 18:54 WBC RBC Hgb Hct MCV MCH MCHC Differential RDW Plt Count MPV Neutrophils (Manual) Lymphocytes Monocytes Basophils Platelet Estimate PT INR Sodium 123 L Potassium 4.2 Chloride 95 L Carbon Dioxide 24.2 Anion Gap 8.0 BUN 5 L Creatinine 0.7 Est GFR ( Amer) > 60.0 Est GFR (Non-Af Amer) > 60.0 BUN/Creatinine Ratio 7.1 Glucose 118 H Whole Bld Lactic Acid Calcium 9.0 Total Bilirubin 1.0 AST 87 H ALT 53 H Alkaline Phosphatase 119 H Troponin I 0.02 Total Protein 6.7 Albumin 3.5 L Globulin 3.2 Albumin/Globulin Ratio 1.1 Triglycerides Cholesterol LDL Cholesterol Direct HDL Cholesterol TSH 2.45 02/17/17 18:54 WBC RBC Hgb Hct MCV MCH MCHC Differential RDW Plt Count MPV Neutrophils (Manual) Lymphocytes Monocytes Basophils Platelet Estimate PT INR Sodium Potassium Chloride Carbon Dioxide Anion Gap BUN Creatinine Est GFR ( Amer) Est GFR (Non-Af Amer) BUN/Creatinine Ratio Glucose Whole Bld Lactic Acid 1.28 Calcium Total Bilirubin AST ALT Alkaline Phosphatase Troponin I Total Protein Albumin Globulin Albumin/Globulin Ratio Triglycerides Cholesterol LDL Cholesterol Direct HDL Cholesterol TSH - Radiology Results Results: CHEST X-RAY = NAD - EKG Interpretations EKG Time:: 18:54 Rate & Rhythm: RATE =89 [place] Bottom: RIGHT AXIS Assessment - Assessment General Assessment: LOW RBC,LOW NA+, LOW CL- CHRONIC BACK PAIN ED Septic Shock - . Is Septic Shock (SBP<90, OR Lactate>4 mmol\L) present?: No - <6hrs of presentation: Vital Signs: Vital Signs - 8 hr 02/17/17 02/17/17 02/17/17 18:54 19:35 20:35 Temp 99.4 F HR 98 85 90 RR 19 12 16 BP 177/91 177/91 169/88 O2 Sat % 96 96 Reassessment (Disposition) - Reassessment Reassessment Condition:: Unchanged - Diagnosis Diagnosis:: ELECTROLYTE IMBALANCE LOW PLATELETS. - Patient Disposition Discharge/Transfer:: Acute Care w/in this hosp Admitting Medical Physician:: Lisette Nair Condition at Disposition:: Unchanged ED Discharge Plan - Patient Disposition Admit/Discharge/Transfer: Acute Care w/in this hosp Condition at Disposition: Unchanged
[2017-02-17] MEDS: HYDROmorphone 1 mg/mL 1mL Syr IVP PRN (23:40)
[2017-02-18] MEDS: HYDROmorphone 1 mg/mL 1mL Syr IVP PRN ×4 (05:16→20:34)
[2017-02-18 07:33] LABS: ANION GAP 7.7 (7.0-16.0); BUN - UREA NITROGEN 6 mg/dL (7-25); BUN/CREATININE RATIO 5.5; CALCIUM SERUM 8.8 mg/dL (8.6-10.3); CARBON DIOXIDE 24.3 mEq/L (21.0-31.0); CHLORIDE 99 mEq/L (98-107); CREATININE - SERUM 1.1 mg/dL (0.7-1.3); GLUCOSE 127 mg/dL (70-105); SODIUM SERUM 127 mEq/L (136-145)
[2017-02-18 08:44] LABS: HEMATOCRIT 35.4 % (39.0-49.0); HEMOGLOBIN 12.1 gm/dL (12.6-17.4); MEAN CELL VOLUME 94.1 fl (80-99); MEAN CORPUSCULAR HEMOGLOBIN 32.3 pg (27.0-31.0); MEAN CORPUSCULAR HGB CONC 34.3 pg (28.0-36.0); MEAN PLATELET VOLUME 7.8 fl; PLATELET COUNT 62 Th/cmm (150-400); RED BLOOD COUNT 3.76 Mil/cmm (3.80-5.80); RED CELL DISTRIBUTION WIDTH 14.7 % (11.5-20.0); WHITE BLOOD COUNT 4.2 Th/cmm (4.8-10.8)
--- NOTE | 2017-02-18 08:54 | Diagnostic Imaging Report ---
Portable chest x-ray Time: 1850 History: Shortness of breath Allowing for portable technique the heart size is normal. No focal pulmonary parenchymal processes. No hilar or mediastinal abnormalities. Impression: No acute abnormalities.
[2017-02-18] MEDS ORDERED: Pneumococcal Vaccine 0.5 mL Vial IM ONE (09:00)
[2017-02-18 09:45] LABS: EOSINOPHIL 5 % (0-5); NEUTROPHILS 53 % (40-80); PLATELET ESTIMATE DECREASED PLATELETS (NORMAL); PLATELET MORPHOLOGY NORMAL (NORMAL); TOTAL CELLS COUNTED 100
--- NOTE | 2017-02-18 12:55 | Consultation ---
DATE OF CONSULTATION: 02/18/2017 AGE: 66. SEX: Male. PHYSICIAN: Dr. Nair. HANDLE BENDER: Dr. Forte. REASON FOR CONSULTATION: The patient is a 66-year-old male with history of what seems to be schizophrenia. The patient has been reporting auditory hallucinations and hearing voices that are telling him "different things." The patient also has been anxious and has been having episodes of severe anxiety. The patient also is interacting minimally with others. He also has been suspicious and slightly paranoid, otherwise, no major behavioral issues. PAST MEDICAL HISTORY: The patient has history of schizophrenia. Also, has electrolyte imbalance. SOCIAL HISTORY: The patient lives in [facility]. She has one daughter that is not in touch with her because of "the ____ is bad." The patient said that he smokes 10 cigarettes per day. He denies any alcohol or drug use and he said that he used to smoke marijuana, but not lately. ALLERGIES: No known allergies. MENTAL STATUS EXAM: The patient appears slightly older than his stated age. Anxious. Cooperative. Thought processes mainly goal directed. The patient admits to auditory hallucinations and hearing voices "don't tell me anything now, but used to tell me to hurt myself." The patient denies any visual hallucinations or delusions. He also denies any suicidal or homicidal ideations. The patient is alert and oriented to time, place, person, and situation. Intact immediate, recent and remote memories. Fair insight. Fair judgment. He seems to be of average intelligence based on his verbal ability. ASSESSMENT: PRIMARY DIAGNOSIS: Chronic paranoid schizophrenia, in remission. TREATMENT PLAN: We will continue monitoring his condition and his behavior closely. Also, continue Elavil and will monitor the dose. We will also work on his hallucinations and ineffective coping. Right now, the patient is only taking Elavil and will continue same dose. Thanks to Dr. Nair and will follow up with you. JOB# [id number]
[2017-02-18 16:27] LABS: URINE BILIRUBIN NEGATIVE (NEGATIVE); URINE BLOOD NEGATIVE (NEGATIVE); URINE GLUCOSE (UA) NEGATIVE (NEGATIVE); URINE KETONE NEGATIVE (NEGATIVE); URINE PH 5.5 (4.6 - 8.0); URINE PROTEIN NEGATIVE (NEGATIVE); URINE UROBILINOGEN 0.2 E.U./dL (0.2 - 1.0)
[2017-02-18 16:34] LABS: URINE COLOR YELLOW
[2017-02-18 16:35] LABS: URINE BACTERIA NONE SEEN /hpf (NONE SEEN); URINE EPITHELIAL CELLS NONE SEEN /lpf (FEW); URINE RBC NONE SEEN /hpf (0-5); URINE WBC NONE SEEN /hpf (0-5)
[2017-02-18] MEDS: Sodium Chloride 0.9% 1,000 ML IV SCH (19:14)
--- NOTE | 2017-02-18 23:25 | Admit Criteria Form ---
Admit Criteria Forms - Admit Criteria Diagnosis: HYPONATREMIA; HYPERNATREMIA; HYPOKALEMIA; HYPERKALEMIA; HYPOCALCEMIA; HYPERCALCEMIA Clinical Indications for Inpatient Care (Place 'X' for any and all applicable criteria): Ongoing inpatient care may be indicated for ANY ONE of the following [G](1)(2)(3 )(5): [X ]I. Hyponatremia with ANY ONE of the following: [X ]a) Sodium less than 130 mEq/L (mmol/L) (new) (6)(22) [ ]b) Sodium less than 135 mEq/L (mmol/L) with ANY ONE of the following: [ ]i) Severe medical etiology requiring inpatient management (eg, heart failure, hypovolemia) [ ]ii) Altered mental status [ ]iii) Seizures [ ]II. Hypernatremia with ANY ONE of the following: [ ]a) Sodium greater than 155 mEq/L (mmol/L) [ ]b) Sodium greater than 150 mEq/L (mmol/L) with ANY ONE of the following: [ ] i) Altered mental status [ ]ii) Seizures [ ]iii) Severe medical etiology (eg, hypovolemia, diabetes insipidus) [ ]iv) Severe weakness [ ]v) Severe medical etiology (eg, hemolysis, infection, drug overdose) [ ]III. Hypokalemia with ANY ONE of the following: [ ]a) Potassium less than 2.5 mEq/L (mmol/L) despite outpatient and emergency treatment [ ]b) Potassium less than 3.0 mEq/L (mmol/L) with ANY ONE of the following: [ ]i) Weakness [ ]ii) Cardiac abnormality (eg, arrhythmia, conduction disturbance) [ ]iii) Cardiac ischemia [ ]iv) Ileus [ ]v) Ongoing medical cause requiring inpatient management. ( e.g., acute renal wasting, SIADH) [ ]vi) Other severe symptoms [ ] IV. Hyperkalemia with ANY ONE of the following: [ ]a) Potassium greater than 6.5 mEq/L (mmol/L) [ ]b) Potassium greater than 5 mEq/L (mmol/L) with ANY ONE of the following: [ ]i) Severe ECG findings [H] [ ]ii) Acute worsening of renal failure (creatinine greater than 2.5 mg/dL (221 micromoles/L) or significant elevation for age and size) [ ] V. Hypocalcemia with ANY ONE of the following: [ ]a) Calcium less than 7 mg/dL (1.75 mmol/L) despite outpatient and emergency treatment(19) [ ]b) Calcium less than 8 mg/dL (2 mmol/L) with significant symptoms or findings; examples include: [ ]i) Cardiac abnormality (eg, arrhythmia or conduction disturbance) [ ]ii) Altered mental status [ ]iii) Seizures [ ]iv) Breathing difficulty [ ]v) Muscle spasms [ ]. Hypercalcemia with ANY ONE of the following: [ ]a) Calcium greater than 14 mg/dL (3.5 mmol/L) [ ]b) Calcium greater than 12 mg/dL (3 mmol/L) with ANY ONE of the following: [ ]i) Significant dehydration or hypovolemia as indicated by ANY ONE of the following(2): [ ]1. Clinically significant dehydration as indicated by ANY ONE of the following: [ ]A. Acute loss of weight from baseline (5% of body weight in adults, 9% in pediatric patients) [ ]B. Hemodynamic instability [ ]C. Acute renal failure [ ]D. Serum sodium greater than 150 mEq/L (mmol/L) [ ]2) Dehydration that is persistent indicated by ALL of the following: [ ]A. Oral rehydration therapy not tolerated or insufficient to adequately correct dehydration [ ]B. Appropriate intravenous treatment (eg, fluids ) does not readily correct dehydration ie, after 12 to 24 hours of treatment) [ ]ii) Significant symptoms or findings; examples include: [ ]1) Altered mental status [ ]2) Cardiac abnormality (eg, arrhythmia, conduction disturbance) [ ]3) Cardiac abnormality (eg, arrhythmia, conduction disturbance) The original [facility] content created by [employer] has been revised. The portions of the content which have been revised are identified through the use of italic text or in bold, and [facility] has neither reviewed nor approved the modified material. All other unmodified content is copyright [facility] [employer] Please see references footnoted in the original [facility] edition 2016 Admit Criteria Met?: Yes
[2017-02-19] MEDS: HYDROmorphone 1 mg/mL 1mL Syr IVP PRN ×6 (00:35→20:08)
[2017-02-19] MEDS: Sodium Chloride 0.9% 1,000 ML IV SCH ×2 (01:51→15:55)
--- NOTE | 2017-02-19 11:40 | Progress Notes ---
DATE: 02/19/2017 SUBJECTIVE: The patient is anxious and still "depressed." The patient also is still anxious and restless. The patient also is feeling hopeless, but he denies any thoughts of suicide. The patient said that he is feeling severely depressed and that he needs help for her depression. Otherwise, the patient is compliant with taking his medications. ASSESSMENT: The patient is still depressed. TREATMENT PLAN: We will start patient on Cymbalta 30 mg everyday. We will also continue to work on his depression and we will continue to follow up. JOB# [id number]
[2017-02-19] MEDS ORDERED: VTE Chemical Prophylaxis Screen/Admission MC PRN (13:47)
[2017-02-19] MEDS: Benztropine 1 MG TAB PO SCH (16:06)
[2017-02-19] MEDS: Lactulose 10 Gm/15 mL 30mL UDC PO SCH ×2 (16:06→20:12)
[2017-02-19] MEDS: Peg-400/Propylene Ophth Soln 5 mL Bottle EACH EYE SCH ×2 (16:07→20:18)
[2017-02-19] MEDS: Hydrocodone/APAP 5mg/325mg Tab PO PRN (22:18)
[2017-02-20] MEDS: HYDROmorphone 1 mg/mL 1mL Syr IVP PRN ×5 (03:20→22:40)
[2017-02-20] MEDS: Sodium Chloride 0.9% 1,000 ML IV SCH ×2 (06:27→16:06)
[2017-02-20 06:35] LABS: MEAN CORPUSCULAR HEMOGLOBIN 32.7 pg (27.0-31.0); MEAN CORPUSCULAR HGB CONC 35.2 pg (28.0-36.0); MEAN PLATELET VOLUME 7.7 fl; RED BLOOD COUNT 3.37 Mil/cmm (3.80-5.80); RED CELL DISTRIBUTION WIDTH 14.4 % (11.5-20.0)
[2017-02-20 06:51] LABS: ANION GAP 7.5 (7.0-16.0); BUN - UREA NITROGEN 5 mg/dL (7-25); BUN/CREATININE RATIO 7.1; CALCIUM SERUM 8.8 mg/dL (8.6-10.3); CARBON DIOXIDE 26.6 mEq/L (21.0-31.0); CHLORIDE 103 mEq/L (98-107); CREATININE - SERUM 0.7 mg/dL (0.7-1.3); GLUCOSE 130 mg/dL (70-105); POTASSIUM SERUM 4.1 mEq/L (3.5-5.1); SODIUM SERUM 133 mEq/L (136-145)
[2017-02-20 07:08] LABS: HEMATOCRIT 31.3 % (39.0-49.0); PLATELET COUNT 35 Th/cmm (150-400); WHITE BLOOD COUNT 3.1 Th/cmm (4.8-10.8)
[2017-02-20 08:01] LABS: BAND NEUTROPHILE 1 % (0-10); EOSINOPHIL 7 % (0-5); NEUTROPHILS 47 % (40-80); TOTAL CELLS COUNTED 100
[2017-02-20 08:02] LABS: PLATELET ESTIMATE DECREASED PLATELETS (NORMAL); PLATELET MORPHOLOGY PLATELET CLUMPS SEEN (NORMAL)
[2017-02-20] MEDS: Lactulose 10 Gm/15 mL 30mL UDC PO SCH ×4 (09:08→21:37)
[2017-02-20] MEDS: Ferrous Sulfate 325 MG TAB PO SCH (09:09)
[2017-02-20] MEDS: Multivitamin Tab PO SCH (09:09)
[2017-02-20] MEDS: Benztropine 1 MG TAB PO SCH ×2 (09:09→16:06)
[2017-02-20] MEDS: Peg-400/Propylene Ophth Soln 5 mL Bottle EACH EYE SCH ×4 (09:51→21:30)
[2017-02-20] MEDS: Hydrocodone/APAP 5mg/325mg Tab PO PRN ×2 (12:46→21:34)
--- NOTE | 2017-02-20 21:14 | Progress Notes ---
DATE: 02/20/2017 SUBJECTIVE: This is a 66-year-old male with history of schizophrenia, reporting hallucinations, anxious, depressed, attest to poor sleep, wants something for sleep, denying any SI. PAST MEDICAL HISTORY: Noted. SOCIAL HISTORY: Noted. Living in [facility]. ALLERGIES: No known drug allergies. MENTAL STATUS EXAMINATION: Stated age, fair eye contact. Speech decreased content. Mood "okay." "I need help with sleep." Affect flat. Thought processes were grossly linear, no SI, no HI, but he is attesting to ongoing voices. No paranoia. Insight and judgment diminished. PROVISIONAL DIAGNOSES: Schizophrenia. MEDICAL DIAGNOSIS: As noted, insomnia, unspecified; mood, unspecified. RECOMMENDATIONS AND PLAN: We will continue to titrate medications. We will increase Seroquel today. Continue Cymbalta. JOB# [id number]
[2017-02-21] MEDS: Sodium Chloride 0.9% 1,000 ML IV SCH ×2 (02:18→09:37)
[2017-02-21] MEDS: HYDROmorphone 1 mg/mL 1mL Syr IVP PRN ×3 (04:16→14:55)
[2017-02-21] MEDS: Multivitamin Tab PO SCH (08:25)
[2017-02-21] MEDS: Hydrocodone/APAP 5mg/325mg Tab PO PRN (08:25)
[2017-02-21] MEDS: Ferrous Sulfate 325 MG TAB PO SCH (08:25)
[2017-02-21] MEDS: Benztropine 1 MG TAB PO SCH ×2 (08:25→17:39)
[2017-02-21] MEDS: Lactulose 10 Gm/15 mL 30mL UDC PO SCH ×2 (09:11→17:39)
[2017-02-21] MEDS: Peg-400/Propylene Ophth Soln 5 mL Bottle EACH EYE SCH ×3 (09:31→17:40)
--- NOTE | 2017-02-21 09:41 | General Progress Note ---
Subjective - Review of Systems Events since last encounter: e Subjective: awake, agitated Objective - Results Result Diagrams: 02/20/17 06:10 02/20/17 06:10 Recent Labs: Laboratory Last Values WBC 3.1 Th/cmm (4.8-10.8) L D 02/20/17 06:10 RBC 3.37 Mil/cmm (3.80-5.80) L 02/20/17 06:10 Hgb 11.0 gm/dL (12.6-17.4) L 02/20/17 06:10 Hct 31.3 % (39.0-49.0) L D 02/20/17 06:10 MCV 93.0 fl (80-99) 02/20/17 06:10 MCH 32.7 pg (27.0-31.0) H 02/20/17 06:10 MCHC Differential 35.2 pg (28.0-36.0) 02/20/17 06:10 RDW 14.4 % (11.5-20.0) 02/20/17 06:10 Plt Count 35 Th/cmm (150-400) L D 02/20/17 06:10 MPV 7.7 fl 02/20/17 06:10 Band Neutrophils % 1 % (0-10) 02/20/17 06:10 Neutrophils (Manual) 47 % (40-80) 02/20/17 06:10 Lymphocytes 34 % (20-50) 02/20/17 06:10 Monocytes 9 % (2-10) 02/20/17 06:10 Eosinophils 7 % (0-5) H 02/20/17 06:10 Basophils 1 % (0-3) 02/17/17 18:54 Atypical Lymphocytes 2 % 02/20/17 06:10 Platelet Estimate DECREASED PLATELETS (NORMAL) 02/20/17 06:10 Platelet Morphology PLATELET CLUMPS SEEN (NORMAL) 02/20/17 06:10 RBC Morph Micro Appear NORMAL (NORMAL) 02/20/17 06:10 PT 12.7 SECONDS (9.5-11.5) H 02/17/17 18:54 INR 1.21 (0.5-1.4) 02/17/17 18:54 Sodium 133 mEq/L (136-145) L 02/20/17 06:10 Potassium 4.1 mEq/L (3.5-5.1) 02/20/17 06:10 Chloride 103 mEq/L (98-107) 02/20/17 06:10 Carbon Dioxide 26.6 mEq/L (21.0-31.0) 02/20/17 06:10 Anion Gap 7.5 (7.0-16.0) 02/20/17 06:10 BUN 5 mg/dL (7-25) L 02/20/17 06:10 Creatinine 0.7 mg/dL (0.7-1.3) 02/20/17 06:10 Est GFR ( Amer) > 60.0 ml/min (>90) 02/20/17 06:10 Est GFR (Non-Af Amer) > 60.0 ml/min 02/20/17 06:10 BUN/Creatinine Ratio 7.1 02/20/17 06:10 Glucose 130 mg/dL (70-105) H 02/20/17 06:10 Whole Bld Lactic Acid 1.28 mmol/L (0.60-1.99) 02/17/17 18:54 Calcium 8.8 mg/dL (8.6-10.3) 02/20/17 06:10 Total Bilirubin 1.0 mg/dL (0.3-1.0) 02/17/17 18:54 AST 87 U/L (13-39) H 02/17/17 18:54 ALT 53 U/L (7-52) H 02/17/17 18:54 Alkaline Phosphatase 119 U/L (34-104) H 02/17/17 18:54 Troponin I 0.02 ng/mL (0.01-0.05) 02/17/17 18:54 Total Protein 6.7 gm/dL (6.0-8.3) 02/17/17 18:54 Albumin 3.5 gm/dL (4.2-5.5) L 02/17/17 18:54 Globulin 3.2 gm/dL 02/17/17 18:54 Albumin/Globulin Ratio 1.1 (1.0-1.8) 02/17/17 18:54 Triglycerides 133 mg/dL (<150) 02/17/17 18:54 Cholesterol 88 mg/dL (<200) 02/17/17 18:54 LDL Cholesterol Direct 28 mg/dL (75-193) L 02/17/17 18:54 HDL Cholesterol 30 mg/dL (23-92) 02/17/17 18:54 TSH 2.45 uIU/ml (0.34-5.60) 02/17/17 18:54 Urine Source CLEAN C 02/18/17 15:30 Urine Color YELLOW 02/18/17 15:30 Urine Clarity CLEAR (CLEAR) 02/18/17 15:30 Urine pH 5.5 (4.6 - 8.0) 02/18/17 15:30 Ur Specific [place] <= 1.005 (1.005-1.030) 02/18/17 15:30 Urine Protein NEGATIVE mg/dL (NEGATIVE) 02/18/17 15:30 Urine Glucose (UA) NEGATIVE mg/dL (NEGATIVE) 02/18/17 15:30 Urine Ketones NEGATIVE mg/dL (NEGATIVE) 02/18/17 15:30 Urine Blood NEGATIVE (NEGATIVE) 02/18/17 15:30 Urine Nitrate NEGATIVE (NEGATIVE) 02/18/17 15:30 Urine Bilirubin NEGATIVE (NEGATIVE) 02/18/17 15:30 Urine Urobilinogen 0.2 E.U./dL (0.2 - 1.0) 02/18/17 15:30 Ur Leukocyte Esterase NEGATIVE (NEGATIVE) 02/18/17 15:30 Urine RBC NONE SEEN /hpf (0-5) 02/18/17 15:30 Urine WBC NONE SEEN /hpf (0-5) 02/18/17 15:30 Ur Epithelial Cells NONE SEEN /lpf (FEW) 02/18/17 15:30 Urine Bacteria NONE SEEN /hpf (NONE SEEN) 02/18/17 15:30 RPR NONREACTIVE (NONREACTIVE) 02/17/17 18:54 - Physical Exam Vitals and I&O: Vital Signs Temp 97.4 F 02/21/17 04:00 Pulse 84 02/21/17 08:25 Resp 18 02/21/17 04:00 BP 157/85 02/21/17 08:25 Pulse Ox 94 02/21/17 04:00 Intake & Output 02/20/17 02/21/17 02/21/17 18:59 06:59 18:59 Intake Total 1000 1300 914.583 Balance 1000 1300 914.583 Weight (lbs) 115.212 kg Intake: Intake, IV Amount 1000 1000 914.583 Sodium Chloride 0.9% 1, 1000 1000 914.583 000 ml @ 125 mls/hr IV . Q8H [facility] Rx#:[id number] Oral 300 Other: # Voids 4 # Bowel Movements 1 Active Medications: Current Medications Acetaminophen/Hydrocodone Bitart ([place] 5mg/325mg) 1 tab PO Q8H PRN PRN Reason: Pain (Severe) Stop: 04/20/17 14:44 Last Admin: 02/21/17 08:25 Dose: 1 tab Amitriptyline HCl (Elavil) 12.5 mg PO HS [facility] PRN Reason: Protocol Stop: 04/19/17 20:59 Last Admin: 02/20/17 21:31 Dose: 12.5 mg Benztropine Mesylate (Cogentin) 1 mg PO BID [facility] Stop: 04/20/17 16:59 Last Admin: 02/21/17 08:25 Dose: 1 mg Duloxetine HCl (Cymbalta) 30 mg PO DAILY [facility] PRN Reason: Protocol Stop: 04/21/17 08:59 Last Admin: 02/21/17 08:25 Dose: 30 mg Ferrous Sulfate (Iron) 325 mg PO DAILY [facility] Stop: 04/21/17 08:59 Last Admin: 02/21/17 08:25 Dose: 325 mg Hydromorphone HCl (Dilaudid) 2 mg IVP Q4HR PRN PRN Reason: Pain (Severe) Stop: 04/18/17 22:19 Last Admin: 02/19/17 12:52 Dose: 2 mg Hydromorphone HCl (Dilaudid) 1 mg IVP Q4HR PRN PRN Reason: Pain (Moderate) Stop: 04/18/17 22:19 Last Admin: 02/21/17 09:37 Dose: 1 mg Sodium Chloride (Nacl 0.9%) 1,000 mls @ 125 mls/hr IV .Q8H [facility] Stop: 04/19/17 20:00 Last Admin: 02/21/17 09:37 Dose: 125 mls/hr Lactulose (Cephulac) 30 gm PO QID [facility] Stop: 04/20/17 16:59 Last Admin: 02/21/17 09:11 Dose: Not Given Lisinopril (Zestril) 20 mg PO DAILY [facility] Stop: 04/21/17 08:59 Last Admin: 02/21/17 08:25 Dose: 20 mg Lorazepam (Ativan) 1 mg PO Q6H PRN; Protocol PRN Reason: Anxiety Stop: 04/20/17 14:44 Miscellaneous (Vte Chemical Prophylaxis Screen/ Admission) 1 ea [facility] PRN PRN PRN Reason: PROTOCOL Stop: 04/20/17 13:46 Multivitamins/Vitamin C (Theragran) 1 tab PO DAILY [facility] Stop: 04/21/17 08:59 Last Admin: 02/21/17 08:25 Dose: 1 tab Ondansetron HCl (Zofran) 4 mg IV Q6HR PRN PRN Reason: Nausea / Vomiting Stop: 04/18/17 22:19 Propylene Glycol (Systane Ophth Soln) 1 drop EACH EYE QID [facility] Stop: 04/20/17 16:59 Last Admin: 02/21/17 09:31 Dose: 1 drop Quetiapine Fumarate (Seroquel) 100 mg PO HS [facility] PRN Reason: Protocol Stop: 04/21/17 20:59 Last Admin: 02/20/17 21:31 Dose: 100 mg Sodium Chloride (Nacl Tab) 2 gm PO DAILY [facility] Stop: 04/21/17 08:59 Last Admin: 02/21/17 08:24 Dose: 2 gm Zolpidem Tartrate (Ambien) 5 mg PO HS PRN PRN Reason: Insomnia Stop: 04/20/17 14:44 Last Admin: 02/19/17 22:18 Dose: 5 mg Assessment/Plan - Problem List Patient Problems: All Active Problems HYPONATREMIA WITH LOW BACK PAIN (Acute) Acute exacerbation of chronic obstructive pulmonary disease (COPD) (Acute) J44.1 H/O chronic hepatitis (Acute) Z87.19 Hepatic encephalopathy (Acute) K72.90 Pneumonia, organism unspecified (Acute) J18.9 S/P FALLL...POSS. HIP FX (Acute)
--- NOTE | 2017-02-21 19:23 | Progress Notes ---
DATE: 02/21/2017 HISTORY OF PRESENT ILLNESS: This is a 66-year-old male with history of schizophrenia, currently denying any perceptual disturbances, no hallucinations, states that he is somewhat anxious and mildly depressed, still attest to poor sleep. Denies any SI. He now states that he is feeling somewhat better, more hopeful and optimistic about things, seems to be in better spirit which is yesterday. SOCIAL HISTORY: Noted living in [facility]. ALLERGIES: No known drug allergies. MENTAL STATUS EXAMINATION: Stated age, fair eye contact. Speech within normal limits. Mood "okay." Affect constricted. Thought processes were linear, no SI, no HI. No voices today and no paranoia. PROVISIONAL DIAGNOSIS: Schizophrenia. RECOMMENDATIONS AND PLAN: No 5150 criteria. The patient seems to be improving. We will increase Seroquel to 100 mg at night to target any residual psychotic symptoms and also try to help him with sleep. JOB# [id number]
--- NOTE | 2017-02-22 13:25 | History & Physical ---
ADMIT DATE: 02/18/2017 HISTORY OF PRESENT ILLNESS: The patient came to the Emergency Room on 02/17/2017. The patient was sent from the [facility], known this patient for a long time. The patient known to have a history of dementia, history of psychosis, history of COPD, history of thrombocytopenia, and the patient had low platelets as well as low sodium, was sent over here for evaluation, was found to have severe hyponatremia was admitted, complained of no fever, no chills, no rigors, no other problems, history of hypertension, history of asthma, COPD, history of peptic ulcer disease, history of dementia, history of hepatic encephalopathy in the past. PHYSICAL EXAMINATION: GENERAL: The patient is alert, oriented, elderly male patient. VITAL SIGNS: As noted in chart. HEAD: Normal. ENT: Normal. NECK: Supple, nontender. LUNGS: Clear. CARDIOVASCULAR SYSTEM: S1, S2 heard. ABDOMEN: Soft. Bowel sounds are heard. CENTRAL NERVOUS SYSTEM: Grossly normal. A little decrease to sensorium, is slightly confused. LABORATORY DATA: White count was 3.5 is low, decreased platelets and also his sodium was low at 123. DIAGNOSES: The patient was admitted for severe hyponatremia, severe thrombocytopenia, chronic back pain, COPD, history of hypertension, history of asthma, history of psychosis. PLAN: I will go ahead and give him some sodium as well as sodium chloride IV and I will have Dr. Massey see the patient and also the modeling director see the patient and I will follow the patient. JOB# [id number]
--- NOTE | 2017-02-23 13:53 | Discharge Summary ---
DATE OF DISCHARGE: 02/21/2017 HOSPITAL COURSE: This is an elderly male patient know to me with history of COPD, history of schizophrenia, history of psychiatric disorder, history of psychosis, history of hyponatremia, recurrent ____ and multiple psychiatric ____. The patient has peptic ulcer disease, history of GI bleeding in the past. Apparently, the patient had low sodium and was brought in and ____ inappropriate ADH, and the patient was admitted and also ____ thrombocytopenia. The patient was treated with normal saline and the patient improved, and the patient was in stable condition on February 21 and the patient was transferred back to [facility] where I will be following the patient. FINAL DIAGNOSES: Status post hyponatremia, improved, history of electrolyte imbalance, history of chronic obstructive pulmonary disease, history of thrombocytopenia, history of psychosis. CONDITION AT THE TIME OF DISCHARGE: Stable. I will be following the patient at [facility]. JOB# [id number]
== END 2017-02-21 18:00 | disposition home or self-care (01) | DRG 641 ==
LOC: ER 18:33 → MSI 21:16
PROVIDERS: ADMIT Internal Medicine; ATTEND Internal Medicine
DX: E87.1 Hypo-osmolality and hyponatremia (principal); D69.6 Thrombocytopenia, unspecified; F03.90 Unspecified dementia, unspecified severity, without behavioral disturbance, psychotic disturbance, mood disturbance, and anxiety; F20.0 Paranoid schizophrenia; J44.9 Chronic obstructive pulmonary disease, unspecified; G89.29 Other chronic pain; I10 Essential (primary) hypertension; K21.9 Gastro-esophageal reflux disease without esophagitis; M54.9 Dorsalgia, unspecified; F41.9 Anxiety disorder, unspecified; F17.210 Nicotine dependence, cigarettes, uncomplicated; F32.9 Major depressive disorder, single episode, unspecified; G47.00 Insomnia, unspecified; F39 Unspecified mood [affective] disorder; Z87.11 Personal history of peptic ulcer disease; Z82.49 Family history of ischemic heart disease and other diseases of the circulatory system
CPT/HCPCS: 36415-UA; 71010-TC; 80048-TC; 80053-TC; 80061-TC; 81001-TC; 83605; 84443-TC; 84484-TC; 85007-TC; 85027-TC; 85610-TC; 86592-TC; 90732; 93005; 96374; J1170; J2060; J7030; Z7610

== ENCOUNTER 2017-05-08 16:22 | Inpatient (IN) | payer MEDICARE, MEDICAID ==
--- NOTE | 2017-05-08 16:34 | ED Physician Chart ---
ED Chief Complaint/HPI - Patient Information Date Seen:: 05/08/17 Time Seen:: 16:20 Chief Complaint:: Abnormal Labs History of Present Illness:: onset x one day of abnormal labs reported especially low platelet count while getting daily routine lab tests; no report of trauma, H/As, neck pain, C/P, SOB , Abd. Pain, A/N/V/D/C, fever, chills, or urinary s/s Allergies:: Allergies Allergy/AdvReac Type Severity Reaction Status Date / Time No Known Allergies Allergy Verified 11/22/16 22:14 Historian:: Patient, EMS Review:: Nurse's Note Reviewed, Old Chart Reviewed, EMS run form Reviewed ED Review of Systems - Review of Systems General/Constitutional: No fever, No chills, No weight loss, No weakness, No diaphoresis, No edema, No loss of appetite Skin: No skin lesions, No rash, No bruising Head: No headache, No light-headedness Eyes: No loss of vision, No pain, No diplopia ENT: No earache, No nasal drainage, No sore throat, No tinnitus Neck: No neck pain, No swelling, No thyromegaly, No stiffness, No mass noted Cardio Vascular: No chest pain, No palpitations, No PND, No orthopnea, No edema Pulmonary: No SOB, No cough, No sputum, No wheezing GI: No nausea, No vomiting, No diarrhea, No pain, No melena, No hematochezia, No constipation, No hematemesis G/U: No dysuria, No frequency, No hematuria Musculoskeletal: No bone or joint pain, No back pain, No muscle pain Endocrine: No polyuria, No polydipsia Psychiatric: Prior psych history, Depression, Anxiety, No suicidal ideation, No homicidal ideation, Auditory hallucination, No visual hallucination Hematopoietic: No bruising, No lymphadenopathy Allergic/Immuno: No urticaria, No angioedema Neurological: No syncope, No focal symptoms, No weakness, No paresthesia, No headache, No seizure, No dizziness, No confusion, No vertigo ED Past Medical History - Past Medical History Obtainable: Yes Past Medical History: HTN, CVA/TIA, Dyslipidemia, PUD/GERD, Arthritis, Dementia Family History: Diabetes Melitus, HTN Social History: Non Smoker, No Alcohol, No Drug Use, Single, Care Facility Surgical History: None Psychiatricy History: Schizophrenia, Bipolar, Dementia Medication: Reviewed Family Medical History - Family Member Mother History Unknown: Yes Ethnicity: Non- Living Status: Hx Family Cancer: No Hx Family Coronary Artery Disease: No Hx Family Congestive Heart Failure: No Hx Family Hypertension: No Hx Family Stroke: No Hx Family Diabetes: No Hx Family Seizures: No Hx Family Dementia: No Hx Family AIDS: No Hx Family HIV: No Hx Family COPD: No Hx Family Hepatitis: No Hx Family Psychiatric Problems: No Hx Family Tuberculosis: No unknown History Unknown: Yes Ethnicity: Non- Living Status: Hx Family Cancer: No Hx Family Coronary Artery Disease: No Hx Family Congestive Heart Failure: No Hx Family Hypertension: Yes Hx Family Stroke: No Hx Family Diabetes: No Hx Family Seizures: No Hx Family Dementia: No Hx Family AIDS: No Hx Family HIV: No Hx Family COPD: No Hx Family Hepatitis: No Hx Family Psychiatric Problems: No Hx Family Tuberculosis: No Father History Unknown: Yes Living Status: Sister History Unknown: Yes Ethnicity: Living Status: ED Physical Exam - Physical Examination General/Constitutional: Awake, Well-developed, well-nourished, Alert, No distress, GCS 15, Non-toxic appearing, Ambulatory Head: Atraumatic Eyes: Lids, conjuctiva normal, PERRL, EOMI Skin: Nl inspection, No rash, No skin lesions, No ecchymosis, Well hydrated, No lymphadenopathy ENMT: External ears, nose nl, Nasal exam nl, Lips, teeth, gums nl Neck: Nontender, Full ROM w/o pain, No JVD, No nuchal rigidity, No bruit, No mass, No stridor Respiratory: Nl effort/Exclusion, Clear to Auscultation, No Wheeze/Rhonchi/Rales Cardio Vascular: RRR, No murmur, gallop, rubs, NL S1 S2 GI: No tenderness/rebounding/guarding, No organomegaly, No hernia, Normal BS's, Nondistended, No mass/bruits, No McBurney tenderness : No CVA tenderness Extremities: No tenderness or effusion, Full ROM, normal strength in all extremities, No edema, Normal digits & nails Neuro/Psych: DTR's symmetric, Normal sensory exam, Normal motor strength, Judgement/insight normal, Mood normal, Normal gait, No focal deficits Other Neuro/Psych comments:: Confused and Disoriented Misc: Normal back, No paraspinal tenderness ED Labs/Radiology/EKG Results - Lab Results Comments:: Platlets: 59,000; H/H: 11.8/35.1; Na+: 132 - Radiology Results Comments:: LLL Haziness; - EKG Interpretations EKG Time:: 16:45 Rate & Rhythm: 93; NSR Comments:: non-specific st-t changes ED Septic Shock - . Is Septic Shock (SBP<90, OR Lactate>4 mmol\L) present?: No ED Reassessment (Disposition) - Reassessment Reassessment Condition:: Improved - Diagnosis Diagnosis:: Dx: PNA; Thrombocytopenia; Anemia; Leukopenia; Hyponatremia - Aftercare/Follow up Instructions Aftercare/Follow-Up Instructions:: Counseled pt regarding lab results/diagnosis & need follow up, Counseled pt & family regarding lab results/diagnosis & need follow up - Patient Disposition Discharge/Transfer:: Acute Care w/in this hosp Accepting Physician:: Dr. Nair Time Called:: 1750 Time Responded:: 17:50 Admitted to:: Telemetry Spoke to:: Dr. Nair Admitting Medical Physician:: Dr. Nair Condition at Disposition:: Stable, Improved
[2017-05-08 17:08] LABS: HEMOGLOBIN 11.8 gm/dL (12-16); MEAN CELL VOLUME 94.5 fl (80-99); MEAN CORPUSCULAR HEMOGLOBIN 31.9 pg (27.0-31.0); MEAN CORPUSCULAR HGB CONC 33.7 pg (28.0-36.0); NEUTROPHILE ABSOLUTE 2.2 Th/cmm (1.8-8.0); RED BLOOD COUNT 3.72 Mil/cmm (3.80-5.80); RED CELL DISTRIBUTION WIDTH 14.1 % (11.5-20.0)
[2017-05-08 17:25] LABS: HEMATOCRIT 35.1 % (41.0-60)
[2017-05-08 17:26] LABS: PLATELET COUNT 59 Th/cmm (150-400)
[2017-05-08 17:28] LABS: ALB/GLOB RATIO 0.9 (1.0-1.8); ALKALINE PHOSPHATASE 111 U/L (34-104); ANION GAP 9.1 (7.0-16.0); BILIRUBIN,TOTAL 0.8 mg/dL (0.3-1.0); BUN - UREA NITROGEN 6 mg/dL (7-25); BUN/CREATININE RATIO 8.6; CALCIUM SERUM 8.7 mg/dL (8.6-10.3); CARBON DIOXIDE 22.7 mEq/L (21.0-31.0); CHLORIDE 104 mEq/L (98-107); CHOLESTEROL 68 mg/dL (<200); CREATININE - SERUM 0.7 mg/dL (0.7-1.3); GLUCOSE 126 mg/dL; POTASSIUM SERUM 3.8 mEq/L (3.5-5.1); SGOT 79 U/L (13-39); SGPT/ALT 39 U/L (7-52); SODIUM SERUM 132 mEq/L (136-145); TRIGLYCERIDES 108 mg/dL (<150)
[2017-05-08 17:31] LABS: INR 1.23 (0.5-1.4); PROTHROMBIN TIME (TEST) 12.9 SECONDS (9.5-11.5)
[2017-05-08 17:45] LABS: BASOPHIL 1 % (0-3); EOSINOPHIL 4 % (0-5); NEUTROPHILS 60 % (40-80); PLATELET ESTIMATE DECREASED PLATELETS (NORMAL); PLATELET MORPHOLOGY NORMAL (NORMAL)
[2017-05-08] MEDS ORDERED: Levofloxacin 500mg/100mL 500 MG/100 ML BAG IV ONE ×2 (18:12→18:25)
[2017-05-08] MEDS ORDERED: Potassium Chloride 20 mEq ER Tab PO ONE (18:27)
[2017-05-08] MEDS ORDERED: Influenza Vaccine 0.5 mL Syr IM ONE (23:01)
[2017-05-08] MEDS: HYDROmorphone 1 mg/mL 1mL Syr IVP PRN (23:38)
[2017-05-08] MEDS: D5-0.45NS 1,000 ML IV SCH (23:43)
[2017-05-09 05:28] LABS: HEMATOCRIT 33.2 % (41.0-60); HEMOGLOBIN 11.2 gm/dL (12-16); MEAN CELL VOLUME 93.9 fl (80-99); MEAN CORPUSCULAR HEMOGLOBIN 31.5 pg (27.0-31.0); MEAN CORPUSCULAR HGB CONC 33.6 pg (28.0-36.0); MEAN PLATELET VOLUME 7.7 fl; RED BLOOD COUNT 3.54 Mil/cmm (3.80-5.80); RED CELL DISTRIBUTION WIDTH 14.1 % (11.5-20.0)
[2017-05-09 05:43] LABS: WHITE BLOOD COUNT 3.3 Th/cmm (4.8-10.8)
[2017-05-09 05:44] LABS: ANION GAP 4.7 (7.0-16.0); BUN - UREA NITROGEN 5 mg/dL (7-25); BUN/CREATININE RATIO 8.3; CALCIUM SERUM 8.3 mg/dL (8.6-10.3); CARBON DIOXIDE 24.9 mEq/L (21.0-31.0); CHLORIDE 104 mEq/L (98-107); CREATININE - SERUM 0.6 mg/dL (0.7-1.3); GLUCOSE 128 mg/dL; PLATELET COUNT 37 Th/cmm (150-400); POTASSIUM SERUM 3.6 mEq/L (3.5-5.1); SODIUM SERUM 130 mEq/L (136-145)
[2017-05-09] MEDS: HYDROmorphone 1 mg/mL 1mL Syr IVP PRN ×4 (05:57→18:27)
[2017-05-09 06:07] LABS: EOSINOPHIL 10 % (0-5); NEUTROPHILS 53 % (40-80); TOTAL CELLS COUNTED 100
[2017-05-09 06:08] LABS: PLATELET ESTIMATE DECREASED PLATELETS (NORMAL)
--- NOTE | 2017-05-09 08:08 | Diagnostic Imaging Report ---
CHEST X-RAY: AP view INDICATION: pain COMPARISON: 02/17/2017 FINDINGS: Mild chronic lung changes are noted. There is no focal consolidation or pleural effusions The heart is normal in size. There appear to be left lower rib fractures likely chronic. No evidence of a pneumothorax. IMPRESSION: No focal consolidation identified. Left lower rib fractures which appear to be chronic. No evidence of a pneumothorax.
[2017-05-09] MEDS: Pantoprazole 40 mg EC Tab PO SCH (08:24)
[2017-05-09] MEDS: Ferrous Sulfate 325 MG TAB PO SCH (08:24)
[2017-05-09] MEDS: Benztropine 1 MG TAB PO SCH ×2 (08:24→16:19)
[2017-05-09] MEDS: Lactulose 10 Gm/15 mL 30mL UDC PO SCH ×5 (08:24→20:59)
[2017-05-09] MEDS: Multivitamin Tab PO SCH (08:24)
--- NOTE | 2017-05-09 09:02 | Diagnostic Imaging Report ---
Pelvis and hips 2 views Indication: Pelvic and hip pain Comparison: none Findings: There is evidence of cerclage wire fixation of previous displaced left greater trochanteric fracture. Mild degenerative changes of both hip joints are noted. No evidence of an acute fracture or dislocation. Note exam is limited due to positioning. There may have been previous chronic trauma of the left inferior pubic rami Impression: Evidence of cerclage wire fixation of displaced left greater trochanteric fracture. There may also have been previous nondisplaced fracture left inferior pubic rami, most likely chronic. Otherwise no evidence of acute fracture or dislocation. Please correlate with clinical findings. Mild degenerative changes of both hip joints. In the setting of trauma, if clinical symptoms persist and there is continued concern for an occult fracture, follow up exams in 5-7 days is suggested.
[2017-05-09] MEDS: Vancomycin HCl 1.75 GM in Sodium Chloride 0.9% 500 ML IV SCH ×2 (10:09→20:50)
[2017-05-09] MEDS: Polyvinyl Alcohol Ophth Soln 15 mL Bottle EACH EYE SCH ×4 (10:09→20:50)
--- NOTE | 2017-05-09 11:41 | Internal Medicine Prog Note ---
Internal Medicine Subjective - Subjective Service Date: 05/09/17 ([facility] [id number]) Internal Medicine Objective - Results Result Diagrams: 05/09/17 04:45 05/09/17 04:45 Recent Labs: Laboratory Last Values WBC 3.3 Th/cmm (4.8-10.8) L 05/09/17 04:45 RBC 3.54 Mil/cmm (3.80-5.80) L 05/09/17 04:45 Hgb 11.2 gm/dL (12-16) L 05/09/17 04:45 Hct 33.2 % (41.0-60) L 05/09/17 04:45 MCV 93.9 fl (80-99) 05/09/17 04:45 MCH 31.5 pg (27.0-31.0) H 05/09/17 04:45 MCHC Differential 33.6 pg (28.0-36.0) 05/09/17 04:45 RDW 14.1 % (11.5-20.0) 05/09/17 04:45 Plt Count 37 Th/cmm (150-400) L D 05/09/17 04:45 MPV 7.7 fl 05/09/17 04:45 Neutrophils (Manual) 53 % (40-80) 05/09/17 04:45 Lymphocytes 35 % (20-50) 05/09/17 04:45 Monocytes 2 % (2-10) 05/09/17 04:45 Eosinophils 10 % (0-5) H 05/09/17 04:45 Basophils 1 % (0-3) 05/08/17 17:01 Platelet Estimate DECREASED PLATELETS (NORMAL) 05/09/17 04:45 Platelet Morphology NORMAL (NORMAL) 05/08/17 17:01 PT 12.9 SECONDS (9.5-11.5) H 05/08/17 17:01 INR 1.23 (0.5-1.4) 05/08/17 17:01 Sodium 130 mEq/L (136-145) L 05/09/17 04:45 Potassium 3.6 mEq/L (3.5-5.1) 05/09/17 04:45 Chloride 104 mEq/L (98-107) 05/09/17 04:45 Carbon Dioxide 24.9 mEq/L (21.0-31.0) 05/09/17 04:45 Anion Gap 4.7 (7.0-16.0) L 05/09/17 04:45 BUN 5 mg/dL (7-25) L 05/09/17 04:45 Creatinine 0.6 mg/dL (0.7-1.3) L 05/09/17 04:45 Est GFR ( Amer) > 60.0 ml/min (>90) 05/09/17 04:45 Est GFR (Non-Af Amer) > 60.0 ml/min 05/09/17 04:45 BUN/Creatinine Ratio 8.3 05/09/17 04:45 Glucose 128 mg/dL 05/09/17 04:45 Whole Bld Lactic Acid 1.82 mmol/L (0.60-1.99) 05/08/17 17:01 Calcium 8.3 mg/dL (8.6-10.3) L 05/09/17 04:45 Total Bilirubin 0.8 mg/dL (0.3-1.0) 05/08/17 17:01 AST 79 U/L (13-39) H 05/08/17 17:01 ALT 39 U/L (7-52) 05/08/17 17:01 Alkaline Phosphatase 111 U/L (34-104) H 05/08/17 17:01 Creatine Kinase 55 U/L (30-223) 05/08/17 17:01 Troponin I 0.01 ng/mL (0.01-0.05) 05/08/17 17:01 B-Natriuretic Peptide 8.2 pg/mL (5.0-100.0) 05/08/17 17:01 Total Protein 6.4 gm/dL (6.0-8.3) 05/08/17 17:01 Albumin 3.0 gm/dL (4.2-5.5) L 05/08/17 17:01 Globulin 3.4 gm/dL 05/08/17 17:01 Albumin/Globulin Ratio 0.9 (1.0-1.8) L 05/08/17 17:01 Triglycerides 108 mg/dL (<150) 05/08/17 17:01 Cholesterol 68 mg/dL (<200) 05/08/17 17:01 LDL Cholesterol Direct 29 mg/dL (75-193) L 05/08/17 17:01 HDL Cholesterol 20 mg/dL (23-92) L 05/08/17 17:01 - Physical Exam Vitals and I&O: Vital Signs Temp 97.8 F 05/09/17 08:00 Pulse 87 05/09/17 08:24 Resp 18 05/09/17 08:00 BP 133/83 05/09/17 08:24 Pulse Ox 94 05/09/17 08:00 Intake & Output 05/08/17 05/09/17 05/09/17 18:59 06:59 18:59 Intake Total 590 Balance 590 Weight (lbs) 237 lb Intake: Intake, IV Amount 350 Levofloxacin 500mg/100mL 100 500 mg In 100 ml @ 100 mls/hr IV X1 ONE Rx#: [id number] Vancomycin HCl 1 gm In 250 Sodium Chloride 0.9% 250 ml @ 165 mls/hr IV Q12H [facility] Rx#:[id number] Oral 240 Other: # Voids 2 # Bowel Movements 1 Active Medications: Current Medications Acetaminophen/Hydrocodone Bitart ([place] 5mg/325mg) 1 tab PO Q8H PRN PRN Reason: Pain (Severe) Stop: 07/08/17 07:13 Amitriptyline HCl (Elavil) 25 mg PO HS [facility]RIL PRN Reason: Protocol Stop: 07/08/17 20:59 Artificial Tears (Artificial Tears Ophth Soln) 1 drop EACH EYE QID [facility] Stop: 07/08/17 08:59 Last Admin: 05/09/17 10:09 Dose: 1 drop Benztropine Mesylate (Cogentin) 1 mg PO BID [facility] Stop: 07/08/17 08:59 Last Admin: 05/09/17 08:24 Dose: 1 mg Ferrous Sulfate (Iron) 325 mg PO DAILY [facility] Stop: 07/08/17 08:59 Last Admin: 05/09/17 08:24 Dose: 325 mg Hydromorphone HCl (Dilaudid) 1 mg IVP Q4HR PRN PRN Reason: Pain (Moderate) Stop: 07/07/17 22:22 Last Admin: 05/09/17 10:09 Dose: 1 mg Dextrose/Sodium Chloride (D5-0.45ns) 1,000 mls @ 75 mls/hr IV .[id number] [facility] Stop: 07/07/17 22:23 Last Admin: 05/08/17 23:43 Dose: 75 mls/hr Vancomycin HCl 1.75 gm/ Sodium (Chloride) 500 mls @ 250 mls/hr IV Q12H [facility] Stop: 07/08/17 08:59 Last Admin: 05/09/17 10:09 Dose: 250 mls/hr Lactulose (Cephulac) 60 gm PO QID [facility] Stop: 07/08/17 08:59 Last Admin: 05/09/17 08:28 Dose: Not Given Lisinopril (Zestril) 20 mg PO DAILY [facility] Stop: 07/08/17 08:59 Last Admin: 05/09/17 08:24 Dose: 20 mg Lorazepam (Ativan) 1 mg PO Q6H PRN; Protocol PRN Reason: Anxiety Stop: 07/08/17 07:13 Miscellaneous (Vancomycin Iv Per Pharmacy) 1 ea [facility] PRN PRN PRN Reason: PROTOCOL Stop: 07/07/17 22:22 Multivitamins/Vitamin C (Theragran) 1 tab PO DAILY [facility] Stop: 07/08/17 08:59 Last Admin: 05/09/17 08:24 Dose: 1 tab Ondansetron HCl (Zofran) 4 mg IV Q6H PRN PRN Reason: Nausea / Vomiting Stop: 07/07/17 22:22 Pantoprazole Sodium (Protonix) 40 mg PO DAILY [facility] Stop: 07/08/17 08:59 Last Admin: 05/09/17 08:24 Dose: 40 mg Quetiapine Fumarate (Seroquel) 50 mg PO HS [facility] PRN Reason: Protocol Stop: 07/08/17 20:59 Sodium Chloride (Nacl Tab) 2 gm PO DAILY [facility] Stop: 07/08/17 08:59 Last Admin: 05/09/17 08:24 Dose: 2 gm Zolpidem Tartrate (Ambien) 5 mg PO HS PRN PRN Reason: Insomnia Stop: 07/08/17 07:13
--- NOTE | 2017-05-09 13:04 | Consultation ---
Consult Note - Consult Note Service Date: 05/09/17 Referring Physician: Lisette Nair Consult Note: PHYSICIAN Consultation Note: Date of Admission: 05/08/17 Purpose of Consultation: neutropenia. Chief Complaint: Patient CARLOS EDUARDO ZUNIGA was admitted to location Medical/Surgical Unit I with LEUKOPENIA,THROMBOCYTOPENIA. History of Present Illness: Patient is 66 year male with a past medical history of follow-up hypertension, carotid disease, asthma, COPD, history of left hip ORIF, hepatitis C, cirrhosis fell at her nursing facility on his right hip. He complained of follow-up pain in right hip. Otherwise patient denies any fever or chills. On initial evaluation, patient's temperature was 98.9F and WBC count 4000 with the platelets 59,000. So patient has no fever. His WBC count went down to 3300. ID consult was called for further management. Past Medical History: COPD, asthma, HTN, CAD, Osteoarthritis. history of left hip ORIF. Chronic hepatitis C. Cirrhosis. Allergies Allergy/AdvReac Type Severity Reaction Status Date / Time No Known Allergies Allergy Verified 05/08/17 16:34 Vital Signs Temp 97.9 F 05/09/17 12:00 Pulse 92 05/09/17 12:00 Resp 19 05/09/17 12:00 BP 145/83 05/09/17 12:00 Pulse Ox 98 05/09/17 12:00 Intake & Output 05/08/17 05/09/17 05/09/17 18:59 06:59 18:59 Intake Total 590 Balance 590 Weight (lbs) 107.501 kg Intake: Intake, IV Amount 350 Levofloxacin 500mg/100mL 100 500 mg In 100 ml @ 100 mls/hr IV [facility]1 [facility] Rx#: [id number] Vancomycin HCl 1 gm In 250 Sodium Chloride 0.9% 250 ml @ 165 mls/hr IV Q12H [facility] Rx#:[id number] Oral 240 Other: # Voids 2 # Bowel Movements 1 Laboratory Results - last 24 hr 05/09/17 05/09/17 04:45 04:45 WBC 3.3 L RBC 3.54 L Hgb 11.2 L Hct 33.2 L MCV 93.9 MCH 31.5 H MCHC Differential 33.6 RDW 14.1 Plt Count 37 L D MPV 7.7 Neutrophils (Manual) 53 Lymphocytes 35 Monocytes 2 Eosinophils 10 H Platelet Estimate DECREASED PLATELETS Sodium 130 L Potassium 3.6 Chloride 104 Carbon Dioxide 24.9 Anion Gap 4.7 L BUN 5 L Creatinine 0.6 L Est GFR ( Amer) > 60.0 Est GFR (Non-Af Amer) > 60.0 BUN/Creatinine Ratio 8.3 Glucose 128 Calcium 8.3 L Home Medication Medication Instructions Recorded Type Lorazepam [Ativan] 1 mg PO Q6H PRN 10/24/14 History Ferrous Sulfate [Iron] 325 mg PO DAILY 05/18/16 History Lactulose 90 ml PO QID 05/18/16 History Lisinopril 20 mg PO DAILY 05/18/16 History Multivitamin [Theragran] 1 tab PO DAILY 05/18/16 History Amitriptyline [Elavil*] 25 mg PO HS 06/16/16 History Benztropine [Cogentin*] 1 mg PO BID 06/16/16 History Esomeprazole Magnesium [Nexium] 40 mg PO DAILY 06/16/16 History QUEtiapine Fumarate [SEROquel] 50 mg PO HS 06/16/16 History Sodium Chloride Tab [NaCL Tab] 2 gm PO DAILY #0 tab 10/31/16 Rx Zolpidem Tartrate [Ambien] 5 mg PO HS PRN 01/25/17 History Hydrocodone/APAP 5mg/325mg [[place] 1 tab PO Q8H PRN 02/17/17 History 5mg/325mg] Propylene Glycol/Peg 400/Pf 1 each OP QID 05/08/17 History [Systane 0.3-0.4% Eye Drops] Current Medications Generic Name Dose Route Start Last Admin Trade Name [facility] PRN Reason Stop Dose Admin Acetaminophen/Hydrocodone Bitart 1 tab 05/09/17 07:14 [place] 5mg/325mg PO 07/08/17 07:13 Q8H PRN Pain (Severe) Amitriptyline HCl 25 mg 05/09/17 21:00 Elavil PO 07/08/17 20:59 HS [facility] Protocol Artificial Tears 1 drop 05/09/17 09:00 05/09/17 10:09 Artificial Tears Ophth Soln EACH EYE 07/08/17 08:59 1 drop QID [facility] Administration Benztropine Mesylate 1 mg 05/09/17 09:00 05/09/17 08:24 Cogentin PO 07/08/17 08:59 1 mg BID [facility] Administration Ferrous Sulfate 325 mg 05/09/17 09:00 05/09/17 08:24 Iron PO 07/08/17 08:59 325 mg DAILY [facility] Administration Hydromorphone HCl 1 mg 05/08/17 22:23 05/09/17 10:09 Dilaudid IVP 07/07/17 22:22 1 mg Q4HR PRN Administration Pain (Moderate) Dextrose/Sodium Chloride 1,000 mls @ 75 mls/hr 05/08/17 22:24 05/08/17 23:43 D5-0.45ns IV 07/07/17 22:23 75 mls/hr .[id number] [facility] Administration Vancomycin HCl 1.75 gm/ Sodium 500 mls @ 250 mls/hr 05/09/17 09:00 05/09/17 10:09 Chloride IV 07/08/17 08:59 250 mls/hr Q12H [facility] Administration Lactulose 60 gm 05/09/17 09:00 05/09/17 08:28 Cephulac PO 07/08/17 08:59 Not Given QID [facility] Lisinopril 20 mg 05/09/17 09:00 05/09/17 08:24 Zestril PO 07/08/17 08:59 20 mg DAILY [facility] Administration Lorazepam 1 mg 05/09/17 07:14 Ativan PO 07/08/17 07:13 Q6H PRN Anxiety Protocol Miscellaneous 1 ea 05/08/17 22:23 Vancomycin Iv Per Pharmacy 07/07/17 22:22 PRN PRN PROTOCOL Multivitamins/Vitamin C 1 tab 05/09/17 09:00 05/09/17 08:24 Theragran PO 07/08/17 08:59 1 tab DAILY [facility] Administration Ondansetron HCl 4 mg 05/08/17 22:23 Zofran IV 07/07/17 22:22 Q6H PRN Nausea / Vomiting Pantoprazole Sodium 40 mg 05/09/17 09:00 05/09/17 08:24 Protonix PO 07/08/17 08:59 40 mg DAILY [facility] Administration Quetiapine Fumarate 50 mg 05/09/17 21:00 Seroquel PO 07/08/17 20:59 HS [facility] Protocol Sodium Chloride 2 gm 05/09/17 09:00 05/09/17 08:24 Nacl Tab PO 07/08/17 08:59 2 gm DAILY [facility] Administration Zolpidem Tartrate 5 mg 05/09/17 07:14 Ambien PO 07/08/17 07:13 HS PRN Insomnia Review of Systems: A 12 point ROS was reviewed with the pertinent positive and negatives noted in the HPI. Social History Smoking Status Former smoker Drug Use No Alcohol Use No Family Medical History Family Medical History Start: 05/08/17 20: 40 Freq: ONCE Status: Active Document 05/08/17 20:40 ARTUR (Rec: 05/08/17 23:02 ARTUR BAY- MS2) Family Medical History Father History Unknown Yes Living Status Mother History Unknown Yes Living Status Physical Exam: General: Comfortable, not in acute distress. Well-nourished well-developed. HEENT: Head: Normocephalic, atraumatic. Oral cavity moist, pink tongue. Neck: Supple, no JVD noted to be. Cardio: S1 and S2 within normal limits regular rhythm. Respiratory: Vesicular breath sound no crackles no wheezing. Abdominal: Soft, nontender nondistended bowel sounds present Genital/Urinary: Deferred Extremities: No cyanosis, no clubbing, no edema. Pulses are palpable in all 4 limbs. Neurological: Alert, awake, oriented 3. Assessment: 1. Pancytopenia, secondary to liver cirrhosis. Consider medication induced. 2. Cardiac] history. 3. History of COPD, asthma. 4. Coronary artery disease. 5. Hypertension. 6. History of for left hip ORIF. 7. Osteoarthritis. Plan: Check abdominal ultrasound. Check alpha-fetoprotein. Otherwise treatment of her hepatitis C as outpatient. Discontinue vancomycin. Signed, Justino Chand M.D. [id number]
[2017-05-09] MEDS: D5-0.45NS 1,000 ML IV SCH (14:25)
--- NOTE | 2017-05-09 20:42 | Consultation ---
DATE OF CONSULTATION: 05/09/2017 HEMATOLOGY ONCOLOGY CONSULTATION Referred by Dr. Jerman Nair. REASON FOR CONSULTATION: Neutropenia and thrombocytopenia. HISTORY OF PRESENT ILLNESS: The patient is a 66-year-old male who was admitted following a fall in the bathroom on his right side. The patient denied bleeding or loss of consciousness. He was found to have low platelet count and low neutrophil count; therefore, I was asked to evaluate. PAST MEDICAL HISTORY: Hepatitis C, liver cirrhosis, COPD, asthma, hypertension. PAST SURGICAL HISTORY: Right hip open reduction internal fixation. MEDICATIONS: From home were reviewed. The patient has been taking ferrous sulfate at home. He was not taking nonsteroidal or aspirin. His medications in the hospital were also reviewed. He was started on vancomycin per ID specialist and continues to be on lactulose, Dilaudid, iron sulfate, Cogentin, Ambien, Seroquel. PHYSICAL EXAMINATION: GENERAL: He is awake. VITAL SIGNS: Afebrile. Blood pressure is stable. HEENT: Atraumatic. No cranial nerve palsy. NECK: Supple. CHEST: Equal air entry. ABDOMEN: Soft. No ascites. EXTREMITIES: No edema, no hematomas. LABORATORY DATA: White count 3.3, platelets 37, hemoglobin 11.2. ASSESSMENT: 1. Liver cirrhosis with splenomegaly. 2. Hypersplenism pancytopenia. In absence of active bleeding, no indication for transfusion of blood products. The patient has normal coagulation profile on this admission. I will obtain alpha fetoprotein. His last abdominal ultrasound was in August and repeat ultrasound of the abdomen will be also obtained for surveillance of hepatoma in this patient with hepatitis C and cirrhosis. Thank you, Dr. Nair, for the opportunity to participate in the care of this interesting case with you. JOB# [id number]
[2017-05-09] MEDS: Hydrocodone/APAP 5mg/325mg Tab PO PRN (20:50)
[2017-05-10] MEDS: HYDROmorphone 1 mg/mL 1mL Syr IVP PRN ×5 (00:13→19:03)
--- NOTE | 2017-05-10 01:47 | History & Physical ---
ADMIT DATE: 05/09/[address] Nair. CHIEF COMPLAINT: Abnormal labs. HISTORY OF PRESENT ILLNESS: This is a 66-year-old male, resident of [facility], who was brought here to [facility] due to status post fall as well as low platelet. According to the patient, he was walking to the restroom, he felt dizzy and the patient fell on his right hip. For further management, the patient is now admitted to the med/surg unit. PAST MEDICAL HISTORY: Hypertension, CVA, TIA, dyslipidemia, PUD, GERD, arthritis, dementia. FAMILY HISTORY: Noncontributory. SOCIAL HISTORY: The patient is a snf resident, requiring 24-hour nursing care. SURGICAL HISTORY: None per patient. MEDICATIONS: Please see medication reconciliation. REVIEW OF SYSTEMS: GENERAL: Denies any fever or any chills. CARDIOVASCULAR: Denies chest pain. RESPIRATORY: Denies any shortness of breath. GASTROINTESTINAL: Denies nausea, vomiting, or abdominal pain. GENITOURINARY: Denies increased frequency or dysuria. NEUROLOGIC: No headaches, seizures, or syncope. PSYCHIATRIC: As stated above. EXTREMITIES: No leg pain or swelling. PHYSICAL EXAMINATION: GENERAL: The patient is a well-developed, well-nourished, no acute distress. VITAL SIGNS: Temperature 97.8, heart rate 87, blood pressure 133/83, respirations 19, and O2 94%. HEENT: Head; normocephalic, atraumatic. NECK: Supple. No mass. LUNGS: Clear bilaterally. HEART: Regular rate and rhythm. ABDOMEN: Soft, nontender. LABORATORY DATA: WBC 3.3, H and H 11.2 and 33.2, platelet of 37. Sodium 130, potassium 3.6, chloride 104, carbon dioxide 24.9, BUN 5, creatinine 0.6, calcium of 8.3. DIAGNOSTICS: The patient had a pelvis and hip x-ray done and the impression is evidence of cerclage wire fixation of displaced left greater trochanteric fracture, there may also been previous nondisplaced fracture of the left inferior pubic rami most likely chronic; otherwise, no evidence of acute fracture or dislocation, mild degenerative changes of both hip joints. The patient also had a chest x-ray done and the impression is no focal consolidation identified, left lower rib fractures appear to be chronic, no evidence of pneumothorax. ASSESSMENT: Leukopenia, thrombocytopenia, status post fall, dizziness, hyponatremia, acute renal insufficiency, hypocalcemia, mild protein-calorie malnutrition, hypertension, history of cerebrovascular accident, dyslipidemia, peptic ulcer disease, gastroesophageal reflux disease, arthritis, and dementia. PLAN: The patient to be admitted to the med/surg unit. We will get PT eval done. We will monitor the patient's electrolytes levels as well as we will monitor the patient's WBCs. We will get Dr. Langston and Dr. Justino Chand on the case. Keep the patient on IV fluids for hydration. Continue to follow this patient. JOB# [id number]
[2017-05-10] MEDS: D5-0.45NS 1,000 ML IV SCH ×2 (04:53→23:32)
[2017-05-10 06:19] LABS: HEMATOCRIT 34.7 % (41.0-60); HEMOGLOBIN 11.8 gm/dL (12-16); MEAN CELL VOLUME 94.3 fl (80-99); MEAN CORPUSCULAR HGB CONC 33.9 pg (28.0-36.0); MEAN PLATELET VOLUME 8.6 fl; PLATELET COUNT 31 Th/cmm (150-400); RED BLOOD COUNT 3.68 Mil/cmm (3.80-5.80); RED CELL DISTRIBUTION WIDTH 14.1 % (11.5-20.0)
[2017-05-10 06:39] LABS: ANION GAP 7.6 (7.0-16.0); BUN - UREA NITROGEN 7 mg/dL (7-25); BUN/CREATININE RATIO 8.8; CALCIUM SERUM 8.7 mg/dL (8.6-10.3); CARBON DIOXIDE 24.1 mEq/L (21.0-31.0); CHLORIDE 104 mEq/L (98-107); CREATININE - SERUM 0.8 mg/dL (0.7-1.3); GLUCOSE 128 mg/dL; POTASSIUM SERUM 3.7 mEq/L (3.5-5.1); SODIUM SERUM 132 mEq/L (136-145)
[2017-05-10 06:55] LABS: WHITE BLOOD COUNT 3.5 Th/cmm (4.8-10.8)
[2017-05-10 07:38] LABS: EOSINOPHIL 8 % (0-5); NEUTROPHILS 47 % (40-80); TOTAL CELLS COUNTED 100
[2017-05-10 07:39] LABS: PLATELET ESTIMATE DECREASED PLATELETS (NORMAL)
[2017-05-10] MEDS: Vancomycin HCl 1.75 GM in Sodium Chloride 0.9% 500 ML IV SCH (09:15)
[2017-05-10] MEDS: Ferrous Sulfate 325 MG TAB PO SCH (09:20)
[2017-05-10] MEDS: Benztropine 1 MG TAB PO SCH ×2 (09:20→16:39)
[2017-05-10] MEDS: Multivitamin Tab PO SCH (09:21)
[2017-05-10] MEDS: Pantoprazole 40 mg EC Tab PO SCH (09:21)
[2017-05-10] MEDS: Lactulose 10 Gm/15 mL 30mL UDC PO SCH ×2 (09:27→20:42)
--- NOTE | 2017-05-10 09:54 | General Progress Note ---
Subjective - Review of Systems Events since last encounter: s/p fall no distress awake alert Objective - Results Result Diagrams: 05/10/17 05:20 05/10/17 05:20 Recent Labs: Laboratory Last Values WBC 3.5 Th/cmm (4.8-10.8) L 05/10/17 05:20 RBC 3.68 Mil/cmm (3.80-5.80) L 05/10/17 05:20 Hgb 11.8 gm/dL (12-16) L 05/10/17 05:20 Hct 34.7 % (41.0-60) L 05/10/17 05:20 MCV 94.3 fl (80-99) 05/10/17 05:20 MCH 32.0 pg (27.0-31.0) H 05/10/17 05:20 MCHC Differential 33.9 pg (28.0-36.0) 05/10/17 05:20 RDW 14.1 % (11.5-20.0) 05/10/17 05:20 Plt Count 31 Th/cmm (150-400) L 05/10/17 05:20 MPV 8.6 fl 05/10/17 05:20 Neutrophils (Manual) 47 % (40-80) 05/10/17 05:20 Lymphocytes 43 % (20-50) 05/10/17 05:20 Monocytes 2 % (2-10) 05/10/17 05:20 Eosinophils 8 % (0-5) H 05/10/17 05:20 Basophils 1 % (0-3) 05/08/17 17:01 Platelet Estimate DECREASED PLATELETS (NORMAL) 05/10/17 05:20 Platelet Morphology NORMAL (NORMAL) 05/08/17 17:01 PT 12.9 SECONDS (9.5-11.5) H 05/08/17 17:01 INR 1.23 (0.5-1.4) 05/08/17 17:01 Sodium 132 mEq/L (136-145) L 05/10/17 05:20 Potassium 3.7 mEq/L (3.5-5.1) 05/10/17 05:20 Chloride 104 mEq/L (98-107) 05/10/17 05:20 Carbon Dioxide 24.1 mEq/L (21.0-31.0) 05/10/17 05:20 Anion Gap 7.6 (7.0-16.0) 05/10/17 05:20 BUN 7 mg/dL (7-25) 05/10/17 05:20 Creatinine 0.8 mg/dL (0.7-1.3) 05/10/17 05:20 Est GFR ( Amer) > 60.0 ml/min (>90) 05/10/17 05:20 Est GFR (Non-Af Amer) > 60.0 ml/min 05/10/17 05:20 BUN/Creatinine Ratio 8.8 05/10/17 05:20 Glucose 128 mg/dL 05/10/17 05:20 Whole Bld Lactic Acid 1.82 mmol/L (0.60-1.99) 05/08/17 17:01 Calcium 8.7 mg/dL (8.6-10.3) 05/10/17 05:20 Total Bilirubin 0.8 mg/dL (0.3-1.0) 05/08/17 17:01 AST 79 U/L (13-39) H 05/08/17 17:01 ALT 39 U/L (7-52) 05/08/17 17:01 Alkaline Phosphatase 111 U/L (34-104) H 05/08/17 17:01 Creatine Kinase 55 U/L (30-223) 05/08/17 17:01 Troponin I 0.01 ng/mL (0.01-0.05) 05/08/17 17:01 B-Natriuretic Peptide 8.2 pg/mL (5.0-100.0) 05/08/17 17:01 Total Protein 6.4 gm/dL (6.0-8.3) 05/08/17 17:01 Albumin 3.0 gm/dL (4.2-5.5) L 05/08/17 17:01 Globulin 3.4 gm/dL 05/08/17 17:01 Albumin/Globulin Ratio 0.9 (1.0-1.8) L 05/08/17 17:01 Triglycerides 108 mg/dL (<150) 05/08/17 17:01 Cholesterol 68 mg/dL (<200) 05/08/17 17:01 LDL Cholesterol Direct 29 mg/dL (75-193) L 05/08/17 17:01 HDL Cholesterol 20 mg/dL (23-92) L 05/08/17 17:01 Vancomycin Trough 19.1 ug/mL (10-20) 05/10/17 07:55 - Physical Exam Vitals and I&O: Vital Signs Temp 98.4 F 05/10/17 04:00 Pulse 95 05/10/17 09:24 Resp 18 05/10/17 04:00 BP 157/87 05/10/17 09:24 Pulse Ox 96 05/10/17 04:00 Intake & Output 05/09/17 05/10/17 05/10/17 18:59 06:59 18:59 Intake Total 1751.25 1911.25 Output Total 1000 Balance 1751.25 911.25 Weight (lbs) 110.314 kg Intake: Intake, IV Amount 1751.25 1361.25 D5-0.45NS 1,000 ml @ 75 1251.25 861.25 mls/hr IV .[id number] [facility] Rx #:[id number] Vancomycin HCl 1.75 gm In 500 500 Sodium Chloride 0.9% 500 ml @ 250 mls/hr IV Q12H [facility] Rx#:[id number] Oral 550 Output: Urine 1000 Other: Stool Characteristics Soft Liquid Active Medications: Current Medications Acetaminophen/Hydrocodone Bitart ([place] 5mg/325mg) 1 tab PO Q8H PRN PRN Reason: Pain (Severe) Stop: 07/08/17 07:13 Last Admin: 05/09/17 20:50 Dose: 1 tab Amitriptyline HCl (Elavil) 25 mg PO HS [facility] PRN Reason: Protocol Stop: 07/08/17 20:59 Last Admin: 05/09/17 20:50 Dose: 25 mg Artificial Tears (Artificial Tears Ophth Soln) 1 drop EACH EYE QID [facility] Stop: 07/08/17 08:59 Last Admin: 05/09/17 20:50 Dose: 1 drop Benztropine Mesylate (Cogentin) 1 mg PO BID [facility] Stop: 07/08/17 08:59 Last Admin: 05/10/17 09:20 Dose: 1 mg Ferrous Sulfate (Iron) 325 mg PO DAILY [facility] Stop: 07/08/17 08:59 Last Admin: 05/10/17 09:20 Dose: 325 mg Hydromorphone HCl (Dilaudid) 1 mg IVP Q4HR PRN PRN Reason: Pain (Moderate) Stop: 07/07/17 22:22 Last Admin: 05/10/17 05:16 Dose: 1 mg Dextrose/Sodium Chloride (D5-0.45ns) 1,000 mls @ 75 mls/hr IV .[id number] [facility] Stop: 07/07/17 22:23 Last Infusion: 05/10/17 06:23 Dose: 75 mls/hr Vancomycin HCl 1.75 gm/ Sodium (Chloride) 500 mls @ 250 mls/hr IV Q12H [facility] Stop: 07/08/17 08:59 Last Admin: 05/10/17 09:15 Dose: 250 mls/hr Lactulose (Cephulac) 60 gm PO QID [facility] Stop: 07/08/17 08:59 Last Admin: 05/10/17 09:27 Dose: 60 gm Lisinopril (Zestril) 20 mg PO DAILY [facility] Stop: 07/08/17 08:59 Last Admin: 05/10/17 09:24 Dose: 20 mg Lorazepam (Ativan) 1 mg PO Q6H PRN; Protocol PRN Reason: Anxiety Stop: 07/08/17 07:13 Miscellaneous (Vancomycin Iv Per Pharmacy) 1 ea [facility] PRN PRN PRN Reason: PROTOCOL Stop: 07/07/17 22:22 Multivitamins/Vitamin C (Theragran) 1 tab PO DAILY [facility] Stop: 07/08/17 08:59 Last Admin: 05/10/17 09:21 Dose: 1 tab Ondansetron HCl (Zofran) 4 mg IV Q6H PRN PRN Reason: Nausea / Vomiting Stop: 07/07/17 22:22 Pantoprazole Sodium (Protonix) 40 mg PO DAILY [facility] Stop: 07/08/17 08:59 Last Admin: 05/10/17 09:21 Dose: 40 mg Quetiapine Fumarate (Seroquel) 50 mg PO HS [facility] PRN Reason: Protocol Stop: 07/08/17 20:59 Sodium Chloride (Nacl Tab) 2 gm PO DAILY [facility] Stop: 07/08/17 08:59 Last Admin: 05/10/17 09:19 Dose: 2 gm Zolpidem Tartrate (Ambien) 5 mg PO HS PRN PRN Reason: Insomnia Stop: 07/08/17 07:13 Last Admin: 05/10/17 01:41 Dose: 5 mg General: No acute distress HEENT: Atraumatic Cardiovascular: Regular rate, Normal S1 Lungs: Clear to auscultation Assessment/Plan - Problem List Patient Problems: All Active Problems Acute exacerbation of chronic obstructive pulmonary disease (COPD) (Acute) J44.1 H/O chronic hepatitis (Acute) Z87.19 HYPONATREMIA WITH LOW BACK PAIN (Acute) Hepatic encephalopathy (Acute) K72.90 Pneumonia, organism unspecified (Acute) J18.9 S/P FALLL...POSS. HIP FX (Acute) - Plan Plan: cpm
--- NOTE | 2017-05-10 13:06 | General Progress Note ---
Subjective - Review of Systems Service Date: 05/10/17 Subjective: feels imbalance when walking Objective - Results Result Diagrams: 05/10/17 05:20 05/10/17 05:20 Recent Labs: Laboratory Last Values WBC 3.5 Th/cmm (4.8-10.8) L 05/10/17 05:20 RBC 3.68 Mil/cmm (3.80-5.80) L 05/10/17 05:20 Hgb 11.8 gm/dL (12-16) L 05/10/17 05:20 Hct 34.7 % (41.0-60) L 05/10/17 05:20 MCV 94.3 fl (80-99) 05/10/17 05:20 MCH 32.0 pg (27.0-31.0) H 05/10/17 05:20 MCHC Differential 33.9 pg (28.0-36.0) 05/10/17 05:20 RDW 14.1 % (11.5-20.0) 05/10/17 05:20 Plt Count 31 Th/cmm (150-400) L 05/10/17 05:20 MPV 8.6 fl 05/10/17 05:20 Neutrophils (Manual) 47 % (40-80) 05/10/17 05:20 Lymphocytes 43 % (20-50) 05/10/17 05:20 Monocytes 2 % (2-10) 05/10/17 05:20 Eosinophils 8 % (0-5) H 05/10/17 05:20 Basophils 1 % (0-3) 05/08/17 17:01 Platelet Estimate DECREASED PLATELETS (NORMAL) 05/10/17 05:20 Platelet Morphology NORMAL (NORMAL) 05/08/17 17:01 PT 12.9 SECONDS (9.5-11.5) H 05/08/17 17:01 INR 1.23 (0.5-1.4) 05/08/17 17:01 Sodium 132 mEq/L (136-145) L 05/10/17 05:20 Potassium 3.7 mEq/L (3.5-5.1) 05/10/17 05:20 Chloride 104 mEq/L (98-107) 05/10/17 05:20 Carbon Dioxide 24.1 mEq/L (21.0-31.0) 05/10/17 05:20 Anion Gap 7.6 (7.0-16.0) 05/10/17 05:20 BUN 7 mg/dL (7-25) 05/10/17 05:20 Creatinine 0.8 mg/dL (0.7-1.3) 05/10/17 05:20 Est GFR ( Amer) > 60.0 ml/min (>90) 05/10/17 05:20 Est GFR (Non-Af Amer) > 60.0 ml/min 05/10/17 05:20 BUN/Creatinine Ratio 8.8 05/10/17 05:20 Glucose 128 mg/dL 05/10/17 05:20 Whole Bld Lactic Acid 1.82 mmol/L (0.60-1.99) 05/08/17 17:01 Calcium 8.7 mg/dL (8.6-10.3) 05/10/17 05:20 Total Bilirubin 0.8 mg/dL (0.3-1.0) 05/08/17 17:01 AST 79 U/L (13-39) H 05/08/17 17:01 ALT 39 U/L (7-52) 05/08/17 17:01 Alkaline Phosphatase 111 U/L (34-104) H 05/08/17 17:01 Creatine Kinase 55 U/L (30-223) 05/08/17 17:01 Troponin I 0.01 ng/mL (0.01-0.05) 05/08/17 17:01 B-Natriuretic Peptide 8.2 pg/mL (5.0-100.0) 05/08/17 17:01 Total Protein 6.4 gm/dL (6.0-8.3) 05/08/17 17:01 Albumin 3.0 gm/dL (4.2-5.5) L 05/08/17 17:01 Globulin 3.4 gm/dL 05/08/17 17:01 Albumin/Globulin Ratio 0.9 (1.0-1.8) L 05/08/17 17:01 Triglycerides 108 mg/dL (<150) 05/08/17 17:01 Cholesterol 68 mg/dL (<200) 05/08/17 17:01 LDL Cholesterol Direct 29 mg/dL (75-193) L 05/08/17 17:01 HDL Cholesterol 20 mg/dL (23-92) L 05/08/17 17:01 Vancomycin Trough 19.1 ug/mL (10-20) 05/10/17 07:55 - Physical Exam Vitals and I&O: Vital Signs Temp 98.4 F 05/10/17 04:00 Pulse 95 05/10/17 09:24 Resp 18 05/10/17 04:00 BP 157/87 05/10/17 09:24 Pulse Ox 96 05/10/17 04:00 Intake & Output 05/09/17 05/10/17 05/10/17 18:59 06:59 18:59 Intake Total 1751.25 1911.25 Output Total 1000 Balance 1751.25 911.25 Weight (lbs) 110.314 kg Intake: Intake, IV Amount 1751.25 1361.25 D5-0.45NS 1,000 ml @ 75 1251.25 861.25 mls/hr IV .[id number] [facility] Rx #:[id number] Vancomycin HCl 1.75 gm In 500 500 Sodium Chloride 0.9% 500 ml @ 250 mls/hr IV Q12H [facility] Rx#:[id number] Oral 550 Output: Urine 1000 Other: Stool Characteristics Soft Liquid Active Medications: Current Medications Acetaminophen/Hydrocodone Bitart ([place] 5mg/325mg) 1 tab PO Q8H PRN PRN Reason: Pain (Severe) Stop: 07/08/17 07:13 Last Admin: 05/09/17 20:50 Dose: 1 tab Amitriptyline HCl (Elavil) 25 mg PO HS [facility] PRN Reason: Protocol Stop: 07/08/17 20:59 Last Admin: 05/09/17 20:50 Dose: 25 mg Artificial Tears (Artificial Tears Ophth Soln) 1 drop EACH EYE QID [facility] Stop: 07/08/17 08:59 Last Admin: 05/09/17 20:50 Dose: 1 drop Benztropine Mesylate (Cogentin) 1 mg PO BID [facility] Stop: 07/08/17 08:59 Last Admin: 05/10/17 09:20 Dose: 1 mg Ferrous Sulfate (Iron) 325 mg PO DAILY [facility] Stop: 07/08/17 08:59 Last Admin: 05/10/17 09:20 Dose: 325 mg Hydromorphone HCl (Dilaudid) 1 mg IVP Q4HR PRN PRN Reason: Pain (Moderate) Stop: 07/07/17 22:22 Last Admin: 05/10/17 11:40 Dose: 1 mg Dextrose/Sodium Chloride (D5-0.45ns) 1,000 mls @ 75 mls/hr IV .[id number] [facility] Stop: 07/07/17 22:23 Last Infusion: 05/10/17 06:23 Dose: 75 mls/hr Vancomycin HCl 1.75 gm/ Sodium (Chloride) 500 mls @ 250 mls/hr IV Q12H [facility] Stop: 05/10/17 15:00 Last Admin: 05/10/17 09:15 Dose: 250 mls/hr Vancomycin HCl 1.5 gm/ Sodium (Chloride) 500 mls @ 250 mls/hr IV Q12H [facility] Stop: 07/09/17 20:59 Lactulose (Cephulac) 60 gm PO QID [facility] Stop: 07/08/17 08:59 Last Admin: 05/10/17 09:27 Dose: 60 gm Lisinopril (Zestril) 20 mg PO DAILY [facility] Stop: 07/08/17 08:59 Last Admin: 05/10/17 09:24 Dose: 20 mg Lorazepam (Ativan) 1 mg PO Q6H PRN; Protocol PRN Reason: Anxiety Stop: 07/08/17 07:13 Miscellaneous (Vancomycin Iv Per Pharmacy) 1 ea [facility] PRN PRN PRN Reason: PROTOCOL Stop: 07/07/17 22:22 Multivitamins/Vitamin C (Theragran) 1 tab PO DAILY [facility] Stop: 07/08/17 08:59 Last Admin: 05/10/17 09:21 Dose: 1 tab Ondansetron HCl (Zofran) 4 mg IV Q6H PRN PRN Reason: Nausea / Vomiting Stop: 07/07/17 22:22 Pantoprazole Sodium (Protonix) 40 mg PO DAILY [facility] Stop: 07/08/17 08:59 Last Admin: 05/10/17 09:21 Dose: 40 mg Quetiapine Fumarate (Seroquel) 50 mg PO HS [facility]IL PRN Reason: Protocol Stop: 07/08/17 20:59 Sodium Chloride (Nacl Tab) 2 gm PO DAILY [facility] Stop: 07/08/17 08:59 Last Admin: 05/10/17 09:19 Dose: 2 gm Zolpidem Tartrate (Ambien) 5 mg PO HS PRN PRN Reason: Insomnia Stop: 07/08/17 07:13 Last Admin: 05/10/17 01:41 Dose: 5 mg General: No acute distress HEENT: Atraumatic Cardiovascular: Regular rate, Normal S1 Lungs: Clear to auscultation Assessment/Plan - Problem List Patient Problems: All Active Problems Acute exacerbation of chronic obstructive pulmonary disease (COPD) (Acute) J44.1 H/O chronic hepatitis (Acute) Z87.19 HYPONATREMIA WITH LOW BACK PAIN (Acute) Hepatic encephalopathy (Acute) K72.90 Pneumonia, organism unspecified (Acute) J18.9 S/P FALLL...POSS. HIP FX (Acute) - Assessment Assessment: * Hepatitis c cirrhosis * splenomegaly * Chronic thrombocytopenia * Chronic leukopenia Check iron studies and AFP and US abdomen
[2017-05-10] MEDS: Polyvinyl Alcohol Ophth Soln 15 mL Bottle EACH EYE SCH ×3 (13:25→20:43)
--- NOTE | 2017-05-10 13:33 | Infectious Disease Prog Note ---
Infectious Disease Subjective - Review of Systems Service Date: 05/10/17 Subjective: Doing well. Infectious Disease Objective - Results Result Diagrams: 05/10/17 05:20 05/10/17 05:20 Recent Labs: Laboratory Last Values WBC 3.5 Th/cmm (4.8-10.8) L 05/10/17 05:20 RBC 3.68 Mil/cmm (3.80-5.80) L 05/10/17 05:20 Hgb 11.8 gm/dL (12-16) L 05/10/17 05:20 Hct 34.7 % (41.0-60) L 05/10/17 05:20 MCV 94.3 fl (80-99) 05/10/17 05:20 MCH 32.0 pg (27.0-31.0) H 05/10/17 05:20 MCHC Differential 33.9 pg (28.0-36.0) 05/10/17 05:20 RDW 14.1 % (11.5-20.0) 05/10/17 05:20 Plt Count 31 Th/cmm (150-400) L 05/10/17 05:20 MPV 8.6 fl 05/10/17 05:20 Neutrophils (Manual) 47 % (40-80) 05/10/17 05:20 Lymphocytes 43 % (20-50) 05/10/17 05:20 Monocytes 2 % (2-10) 05/10/17 05:20 Eosinophils 8 % (0-5) H 05/10/17 05:20 Basophils 1 % (0-3) 05/08/17 17:01 Platelet Estimate DECREASED PLATELETS (NORMAL) 05/10/17 05:20 Platelet Morphology NORMAL (NORMAL) 05/08/17 17:01 PT 12.9 SECONDS (9.5-11.5) H 05/08/17 17:01 INR 1.23 (0.5-1.4) 05/08/17 17:01 Sodium 132 mEq/L (136-145) L 05/10/17 05:20 Potassium 3.7 mEq/L (3.5-5.1) 05/10/17 05:20 Chloride 104 mEq/L (98-107) 05/10/17 05:20 Carbon Dioxide 24.1 mEq/L (21.0-31.0) 05/10/17 05:20 Anion Gap 7.6 (7.0-16.0) 05/10/17 05:20 BUN 7 mg/dL (7-25) 05/10/17 05:20 Creatinine 0.8 mg/dL (0.7-1.3) 05/10/17 05:20 Est GFR ( Amer) > 60.0 ml/min (>90) 05/10/17 05:20 Est GFR (Non-Af Amer) > 60.0 ml/min 05/10/17 05:20 BUN/Creatinine Ratio 8.8 05/10/17 05:20 Glucose 128 mg/dL 05/10/17 05:20 Whole Bld Lactic Acid 1.82 mmol/L (0.60-1.99) 05/08/17 17:01 Calcium 8.7 mg/dL (8.6-10.3) 05/10/17 05:20 Total Bilirubin 0.8 mg/dL (0.3-1.0) 05/08/17 17:01 AST 79 U/L (13-39) H 05/08/17 17:01 ALT 39 U/L (7-52) 05/08/17 17:01 Alkaline Phosphatase 111 U/L (34-104) H 05/08/17 17:01 Creatine Kinase 55 U/L (30-223) 05/08/17 17:01 Troponin I 0.01 ng/mL (0.01-0.05) 05/08/17 17:01 B-Natriuretic Peptide 8.2 pg/mL (5.0-100.0) 05/08/17 17:01 Total Protein 6.4 gm/dL (6.0-8.3) 05/08/17 17:01 Albumin 3.0 gm/dL (4.2-5.5) L 05/08/17 17:01 Globulin 3.4 gm/dL 05/08/17 17:01 Albumin/Globulin Ratio 0.9 (1.0-1.8) L 05/08/17 17:01 Triglycerides 108 mg/dL (<150) 05/08/17 17:01 Cholesterol 68 mg/dL (<200) 05/08/17 17:01 LDL Cholesterol Direct 29 mg/dL (75-193) L 05/08/17 17:01 HDL Cholesterol 20 mg/dL (23-92) L 05/08/17 17:01 Vancomycin Trough 19.1 ug/mL (10-20) 05/10/17 07:55 - Physical Exam Vitals and I&O: Vital Signs Temp 98.4 F 05/10/17 04:00 Pulse 95 05/10/17 09:24 Resp 18 05/10/17 04:00 BP 157/87 05/10/17 09:24 Pulse Ox 96 05/10/17 04:00 Intake & Output 05/09/17 05/10/17 05/10/17 18:59 06:59 18:59 Intake Total 1751.25 1911.25 Output Total 1000 Balance 1751.25 911.25 Weight (lbs) 110.314 kg Intake: Intake, IV Amount 1751.25 1361.25 D5-0.45NS 1,000 ml @ 75 1251.25 861.25 mls/hr IV .[id number] [facility] Rx #:[id number] Vancomycin HCl 1.75 gm In 500 500 Sodium Chloride 0.9% 500 ml @ 250 mls/hr IV Q12H [facility] Rx#:[id number] Oral 550 Output: Urine 1000 Other: Stool Characteristics Soft Liquid Active Medications: Current Medications Acetaminophen/Hydrocodone Bitart ([place] 5mg/325mg) 1 tab PO Q8H PRN PRN Reason: Pain (Severe) Stop: 07/08/17 07:13 Last Admin: 05/09/17 20:50 Dose: 1 tab Amitriptyline HCl (Elavil) 25 mg PO HS [facility] PRN Reason: Protocol Stop: 07/08/17 20:59 Last Admin: 05/09/17 20:50 Dose: 25 mg Artificial Tears (Artificial Tears Ophth Soln) 1 drop EACH EYE QID [facility] Stop: 07/08/17 08:59 Last Admin: 05/10/17 13:25 Dose: 1 drop Benztropine Mesylate (Cogentin) 1 mg PO BID [facility] Stop: 07/08/17 08:59 Last Admin: 05/10/17 09:20 Dose: 1 mg Ferrous Sulfate (Iron) 325 mg PO DAILY [facility] Stop: 07/08/17 08:59 Last Admin: 05/10/17 09:20 Dose: 325 mg Hydromorphone HCl (Dilaudid) 1 mg IVP Q4HR PRN PRN Reason: Pain (Moderate) Stop: 07/07/17 22:22 Last Admin: 05/10/17 11:40 Dose: 1 mg Dextrose/Sodium Chloride (D5-0.45ns) 1,000 mls @ 75 mls/hr IV .[id number] [facility] Stop: 07/07/17 22:23 Last Infusion: 05/10/17 06:23 Dose: 75 mls/hr Vancomycin HCl 1.75 gm/ Sodium (Chloride) 500 mls @ 250 mls/hr IV Q12H [facility] Stop: 05/10/17 15:00 Last Admin: 05/10/17 09:15 Dose: 250 mls/hr Vancomycin HCl 1.5 gm/ Sodium (Chloride) 500 mls @ 250 mls/hr IV Q12H [facility] Stop: 07/09/17 20:59 Lactulose (Cephulac) 60 gm PO QID [facility] Stop: 07/08/17 08:59 Last Admin: 05/10/17 09:27 Dose: 60 gm Lisinopril (Zestril) 20 mg PO DAILY [facility] Stop: 07/08/17 08:59 Last Admin: 05/10/17 09:24 Dose: 20 mg Lorazepam (Ativan) 1 mg PO Q6H PRN; Protocol PRN Reason: Anxiety Stop: 07/08/17 07:13 Miscellaneous (Vancomycin Iv Per Pharmacy) 1 ea [facility] PRN PRN PRN Reason: PROTOCOL Stop: 07/07/17 22:22 Multivitamins/Vitamin C (Theragran) 1 tab PO DAILY [facility] Stop: 07/08/17 08:59 Last Admin: 05/10/17 09:21 Dose: 1 tab Ondansetron HCl (Zofran) 4 mg IV Q6H PRN PRN Reason: Nausea / Vomiting Stop: 07/07/17 22:22 Pantoprazole Sodium (Protonix) 40 mg PO DAILY [facility] Stop: 07/08/17 08:59 Last Admin: 05/10/17 09:21 Dose: 40 mg Quetiapine Fumarate (Seroquel) 50 mg PO HS [facility] PRN Reason: Protocol Stop: 07/08/17 20:59 Sodium Chloride (Nacl Tab) 2 gm PO DAILY [facility] Stop: 07/08/17 08:59 Last Admin: 05/10/17 09:19 Dose: 2 gm Zolpidem Tartrate (Ambien) 5 mg PO HS PRN PRN Reason: Insomnia Stop: 07/08/17 07:13 Last Admin: 05/10/17 01:41 Dose: 5 mg General: no acute distress, cachectic HEENT: atraumatic, normocephalic, PERRLA, EOMI Neck: supple, no thyromegaly Cardiovascular: S1S2, regular Lungs: clear to auscultation bilaterally, clear to percussion Abdomen: soft, no tender, no distended, no mass Extremities: no cyanosis, no clubbing, no edema Neurological: awake, alert, oriented Skin: intact, no rash Infectious Disease Assmt/Plan - Problem List Patient Problems: All Active Problems Acute exacerbation of chronic obstructive pulmonary disease (COPD) (Acute) J44.1 H/O chronic hepatitis (Acute) Z87.19 HYPONATREMIA WITH LOW BACK PAIN (Acute) Hepatic encephalopathy (Acute) K72.90 Pneumonia, organism unspecified (Acute) J18.9 S/P FALLL...POSS. HIP FX (Acute) - Assessment Assessment: 1. Pancytopenia, secondary to liver cirrhosis. Consider medication induced. 2. Cardiac] history. 3. History of COPD, asthma. 4. Coronary artery disease. 5. Hypertension. 6. History of for left hip ORIF. 7. Osteoarthritis. - Plan Plan: Will check US abd and AFP.
[2017-05-10] MEDS: Vancomycin HCl 1.5 GM in Sodium Chloride 0.9% 500 ML IV SCH (20:50)
--- NOTE | 2017-05-11 08:19 | General Progress Note ---
Subjective - Review of Systems Events since last encounter: patient in no distress doing well Objective - Results Result Diagrams: 05/10/17 05:20 05/10/17 05:20 Recent Labs: Laboratory Last Values WBC 3.5 Th/cmm (4.8-10.8) L 05/10/17 05:20 RBC 3.68 Mil/cmm (3.80-5.80) L 05/10/17 05:20 Hgb 11.8 gm/dL (12-16) L 05/10/17 05:20 Hct 34.7 % (41.0-60) L 05/10/17 05:20 MCV 94.3 fl (80-99) 05/10/17 05:20 MCH 32.0 pg (27.0-31.0) H 05/10/17 05:20 MCHC Differential 33.9 pg (28.0-36.0) 05/10/17 05:20 RDW 14.1 % (11.5-20.0) 05/10/17 05:20 Plt Count 31 Th/cmm (150-400) L 05/10/17 05:20 MPV 8.6 fl 05/10/17 05:20 Neutrophils (Manual) 47 % (40-80) 05/10/17 05:20 Lymphocytes 43 % (20-50) 05/10/17 05:20 Monocytes 2 % (2-10) 05/10/17 05:20 Eosinophils 8 % (0-5) H 05/10/17 05:20 Basophils 1 % (0-3) 05/08/17 17:01 Platelet Estimate DECREASED PLATELETS (NORMAL) 05/10/17 05:20 Platelet Morphology NORMAL (NORMAL) 05/08/17 17:01 PT 12.9 SECONDS (9.5-11.5) H 05/08/17 17:01 INR 1.23 (0.5-1.4) 05/08/17 17:01 Sodium 132 mEq/L (136-145) L 05/10/17 05:20 Potassium 3.7 mEq/L (3.5-5.1) 05/10/17 05:20 Chloride 104 mEq/L (98-107) 05/10/17 05:20 Carbon Dioxide 24.1 mEq/L (21.0-31.0) 05/10/17 05:20 Anion Gap 7.6 (7.0-16.0) 05/10/17 05:20 BUN 7 mg/dL (7-25) 05/10/17 05:20 Creatinine 0.8 mg/dL (0.7-1.3) 05/10/17 05:20 Est GFR ( Amer) > 60.0 ml/min (>90) 05/10/17 05:20 Est GFR (Non-Af Amer) > 60.0 ml/min 05/10/17 05:20 BUN/Creatinine Ratio 8.8 05/10/17 05:20 Glucose 128 mg/dL 05/10/17 05:20 Whole Bld Lactic Acid 1.82 mmol/L (0.60-1.99) 05/08/17 17:01 Calcium 8.7 mg/dL (8.6-10.3) 05/10/17 05:20 Iron 114 ug/dL (38-169) 05/09/17 04:45 TIBC 199 ug/dL (250-450) L 05/09/17 04:45 Iron Saturation 57 % (15-55) H 05/09/17 04:45 Unsaturated IBC 85 ug/dL (111-343) L 05/09/17 04:45 Ferritin 393 ng/mL (30-400) 05/09/17 04:45 Total Bilirubin 0.8 mg/dL (0.3-1.0) 05/08/17 17:01 AST 79 U/L (13-39) H 05/08/17 17:01 ALT 39 U/L (7-52) 05/08/17 17:01 Alkaline Phosphatase 111 U/L (34-104) H 05/08/17 17:01 Creatine Kinase 55 U/L (30-223) 05/08/17 17:01 Troponin I 0.01 ng/mL (0.01-0.05) 05/08/17 17:01 B-Natriuretic Peptide 8.2 pg/mL (5.0-100.0) 05/08/17 17:01 Total Protein 6.4 gm/dL (6.0-8.3) 05/08/17 17:01 Albumin 3.0 gm/dL (4.2-5.5) L 05/08/17 17:01 Globulin 3.4 gm/dL 05/08/17 17:01 Albumin/Globulin Ratio 0.9 (1.0-1.8) L 05/08/17 17:01 Triglycerides 108 mg/dL (<150) 05/08/17 17:01 Cholesterol 68 mg/dL (<200) 05/08/17 17:01 LDL Cholesterol Direct 29 mg/dL (75-193) L 05/08/17 17:01 HDL Cholesterol 20 mg/dL (23-92) L 05/08/17 17:01 Tumor Marker AFP 89.0 ng/mL (0.0-8.3) H 05/09/17 04:45 Vancomycin Trough 19.1 ug/mL (10-20) 05/10/17 07:55 - Physical Exam Vitals and I&O: Vital Signs Temp 98.8 F 05/11/17 07:43 Pulse 95 05/11/17 07:43 Resp 19 05/11/17 07:43 BP 155/93 05/11/17 07:43 Pulse Ox 96 05/11/17 07:43 Intake & Output 05/10/17 05/11/17 05/11/17 18:59 06:59 18:59 Intake Total 1787.5 980 Balance 1787.5 980 Weight (lbs) 95.254 kg 110.024 kg Intake: Intake, IV Amount 887.5 500 D5-0.45NS 1,000 ml @ 75 887.5 mls/hr IV .[id number] [facility] Rx #:[id number] Vancomycin HCl 1.5 gm In 500 Sodium Chloride 0.9% 500 ml @ 250 mls/hr IV Q12H [facility] Rx#:[id number] Oral 700 480 Tube Feeding 0 TPN/PPN 0 Blood Product 0 Lipid 0 Albumin 0 Other 200 Other: # Voids 3 # Bowel Movements 3 Active Medications: Current Medications Acetaminophen/Hydrocodone Bitart ([place] 5mg/325mg) 1 tab PO Q8H PRN PRN Reason: Pain (Severe) Stop: 07/08/17 07:13 Last Admin: 05/09/17 20:50 Dose: 1 tab Amitriptyline HCl (Elavil) 25 mg PO HS [facility] PRN Reason: Protocol Stop: 07/08/17 20:59 Last Admin: 05/10/17 20:43 Dose: 25 mg Artificial Tears (Artificial Tears Ophth Soln) 1 drop EACH EYE QID [facility] Stop: 07/08/17 08:59 Last Admin: 05/10/17 20:43 Dose: 1 drop Benztropine Mesylate (Cogentin) 1 mg PO BID [facility] Stop: 07/08/17 08:59 Last Admin: 05/10/17 16:39 Dose: 1 mg Ferrous Sulfate (Iron) 325 mg PO DAILY [facility] Stop: 07/08/17 08:59 Last Admin: 05/10/17 09:20 Dose: 325 mg Hydromorphone HCl (Dilaudid) 1 mg IVP Q4HR PRN PRN Reason: Pain (Moderate) Stop: 07/07/17 22:22 Last Admin: 05/10/17 19:03 Dose: 1 mg Dextrose/Sodium Chloride (D5-0.45ns) 1,000 mls @ 75 mls/hr IV .[id number] [facility] Stop: 07/07/17 22:23 Last Admin: 05/10/17 23:32 Dose: 75 mls/hr Vancomycin HCl 1.5 gm/ Sodium (Chloride) 500 mls @ 250 mls/hr IV Q12H [facility] Stop: 07/09/17 20:59 Last Infusion: 05/10/17 22:50 Dose: Infused Lactulose (Cephulac) 60 gm PO QID [facility] Stop: 07/08/17 08:59 Last Admin: 05/10/17 20:42 Dose: 60 gm Lisinopril (Zestril) 20 mg PO DAILY [facility] Stop: 07/08/17 08:59 Last Admin: 05/10/17 09:24 Dose: 20 mg Lorazepam (Ativan) 1 mg PO Q6H PRN; Protocol PRN Reason: Anxiety Stop: 07/08/17 07:13 Miscellaneous (Vancomycin Iv Per Pharmacy) 1 ea [facility] PRN PRN PRN Reason: PROTOCOL Stop: 07/07/17 22:22 Multivitamins/Vitamin C (Theragran) 1 tab PO DAILY [facility] Stop: 07/08/17 08:59 Last Admin: 05/10/17 09:21 Dose: 1 tab Ondansetron HCl (Zofran) 4 mg IV Q6H PRN PRN Reason: Nausea / Vomiting Stop: 07/07/17 22:22 Pantoprazole Sodium (Protonix) 40 mg PO DAILY [facility] Stop: 07/08/17 08:59 Last Admin: 05/10/17 09:21 Dose: 40 mg Quetiapine Fumarate (Seroquel) 50 mg PO HS [facility] PRN Reason: Protocol Stop: 07/08/17 20:59 Sodium Chloride (Nacl Tab) 2 gm PO DAILY [facility] Stop: 07/08/17 08:59 Last Admin: 05/10/17 09:19 Dose: 2 gm Zolpidem Tartrate (Ambien) 5 mg PO HS PRN PRN Reason: Insomnia Stop: 07/08/17 07:13 Last Admin: 05/10/17 01:41 Dose: 5 mg General: No acute distress HEENT: Atraumatic Cardiovascular: Regular rate, Normal S1 Lungs: Clear to auscultation Assessment/Plan - Problem List Patient Problems: All Active Problems Acute exacerbation of chronic obstructive pulmonary disease (COPD) (Acute) J44.1 H/O chronic hepatitis (Acute) Z87.19 HYPONATREMIA WITH LOW BACK PAIN (Acute) Hepatic encephalopathy (Acute) K72.90 Pneumonia, organism unspecified (Acute) J18.9 S/P FALLL...POSS. HIP FX (Acute) - Plan Plan: cpm
[2017-05-11] MEDS: HYDROmorphone 1 mg/mL 1mL Syr IVP PRN ×4 (09:09→21:42)
[2017-05-11] MEDS: Vancomycin HCl 1.5 GM in Sodium Chloride 0.9% 500 ML IV SCH ×2 (09:09→20:17)
[2017-05-11] MEDS: Polyvinyl Alcohol Ophth Soln 15 mL Bottle EACH EYE SCH ×4 (09:10→20:18)
[2017-05-11] MEDS: Benztropine 1 MG TAB PO SCH ×2 (10:25→16:32)
[2017-05-11] MEDS: Lactulose 10 Gm/15 mL 30mL UDC PO SCH ×4 (10:25→20:19)
[2017-05-11] MEDS: Multivitamin Tab PO SCH (10:26)
[2017-05-11] MEDS: Ferrous Sulfate 325 MG TAB PO SCH (10:26)
[2017-05-11] MEDS: Pantoprazole 40 mg EC Tab PO SCH (10:26)
--- NOTE | 2017-05-11 10:36 | Diagnostic Imaging Report ---
Exam: Ultrasound examination of the abdomen. HISTORY: Cirrhosis. Findings: Real-time ultrasound examination the abdomen performed the planes of study correlated with the previous examination of 11/24/2016. The study demonstrates a normal echogenicity liver parenchyma throughout. There is evidence for hepatosplenomegaly. The common bile duct measures 4 mm. The gallbladder is distended without pericholecystic fluid collection. There is evidence for large amount of sludge with small calculi in most dependent portion of the gallbladder. The pancreas poorly seen. There is no evidence of obstructive uropathy or nephrolithiasis. The right kidney measures 12.9 x 5 x 6.3 cm diameter The left kidney measures 13.6 x 5.5 x 5 cm diameter. The spleen is enlarged. There is a question on the prominence of abdominal aorta measuring 3.3 cm diameter. No free fluid is noted. IMPRESSION: 1. Hepatosplenomegaly Distended gallbladder, cholelithiasis sludge collection. Questionable aneurysmal dilatation of abdominal aorta unchanged upper prior examination.
[2017-05-11 11:35] LABS: HEMOGLOBIN 11.1 gm/dL (12-16); MEAN CELL VOLUME 94.3 fl (80-99); MEAN CORPUSCULAR HEMOGLOBIN 31.7 pg (27.0-31.0); MEAN CORPUSCULAR HGB CONC 33.6 pg (28.0-36.0); RED CELL DISTRIBUTION WIDTH 13.9 % (11.5-20.0); WHITE BLOOD COUNT 3.5 Th/cmm (4.8-10.8)
[2017-05-11 11:46] LABS: PLATELET COUNT 48 Th/cmm (150-400)
[2017-05-11 11:58] LABS: EOSINOPHIL 6 % (0-5); NEUTROPHILS 59 % (40-80); TOTAL CELLS COUNTED 100
[2017-05-11 12:02] LABS: ANION GAP 7.4 (7.0-16.0); BUN - UREA NITROGEN 6 mg/dL (7-25); BUN/CREATININE RATIO 8.6; CALCIUM SERUM 8.4 mg/dL (8.6-10.3); CARBON DIOXIDE 24.2 mEq/L (21.0-31.0); CHLORIDE 107 mEq/L (98-107); CREATININE - SERUM 0.7 mg/dL (0.7-1.3); GLUCOSE 125 mg/dL (70-105); POTASSIUM SERUM 3.6 mEq/L (3.5-5.1); SODIUM SERUM 135 mEq/L (136-145)
[2017-05-11] MEDS: D5-0.45NS 1,000 ML IV SCH (17:37)
[2017-05-12] MEDS: HYDROmorphone 1 mg/mL 1mL Syr IVP PRN ×4 (02:15→21:54)
[2017-05-12] MEDS: Vancomycin HCl 1.5 GM in Sodium Chloride 0.9% 500 ML IV SCH (09:46)
[2017-05-12] MEDS: Polyvinyl Alcohol Ophth Soln 15 mL Bottle EACH EYE SCH ×4 (09:50→20:32)
[2017-05-12] MEDS: Lactulose 10 Gm/15 mL 30mL UDC PO SCH ×5 (10:31→20:35)
[2017-05-12] MEDS: Ferrous Sulfate 325 MG TAB PO SCH (10:31)
[2017-05-12] MEDS: Benztropine 1 MG TAB PO SCH ×2 (10:31→16:27)
[2017-05-12] MEDS: Multivitamin Tab PO SCH (10:32)
[2017-05-12] MEDS: Pantoprazole 40 mg EC Tab PO SCH (10:32)
[2017-05-12 10:33] LABS: ANION GAP 7.5 (7.0-16.0); BUN - UREA NITROGEN 7 mg/dL (7-25); CALCIUM SERUM 8.5 mg/dL (8.6-10.3); CARBON DIOXIDE 23.8 mEq/L (21.0-31.0); CHLORIDE 106 mEq/L (98-107); CREATININE - SERUM 0.7 mg/dL (0.7-1.3); POTASSIUM SERUM 3.3 mEq/L (3.5-5.1); SODIUM SERUM 134 mEq/L (136-145)
[2017-05-12 10:37] LABS: % BASOPHILS 0.3 % (0.0-2.0); % LYMPHOCYTES 32.4 % (20.0-50.0); % MONOCYTES 12.7 % (2.0-10.0); % NEUTROPHILS 46.6 % (40.0-80.0); HEMATOCRIT 33.2 % (41.0-60); HEMOGLOBIN 11.3 gm/dL (12-16); MEAN CELL VOLUME 93.9 fl (80-99); MEAN CORPUSCULAR HEMOGLOBIN 31.9 pg (27.0-31.0); MEAN PLATELET VOLUME 8.5 fl; NEUTROPHILE ABSOLUTE 1.6 Th/cmm (1.8-8.0); RED BLOOD COUNT 3.54 Mil/cmm (3.80-5.80); RED CELL DISTRIBUTION WIDTH 13.9 % (11.5-20.0)
[2017-05-12 10:41] LABS: PLATELET COUNT 37 Th/cmm (150-400); WHITE BLOOD COUNT 3.6 Th/cmm (4.8-10.8)
[2017-05-12 12:24] LABS: GLUCOSE 138 mg/dL (70-105)
--- NOTE | 2017-05-12 12:27 | Internal Medicine Prog Note ---
Internal Medicine Subjective - Subjective Service Date: 05/12/17 Patient seen and examined:: with staff Patient is:: awake Patient Complaints of:: other (body pain) Per staff patient has:: no adverse event Internal Medicine Objective - Results Result Diagrams: 05/12/17 08:00 05/12/17 08:00 Recent Labs: Laboratory Last Values WBC 3.6 Th/cmm (4.8-10.8) L 05/12/17 08:00 RBC 3.54 Mil/cmm (3.80-5.80) L 05/12/17 08:00 Hgb 11.3 gm/dL (12-16) L 05/12/17 08:00 Hct 33.2 % (41.0-60) L 05/12/17 08:00 MCV 93.9 fl (80-99) 05/12/17 08:00 MCH 31.9 pg (27.0-31.0) H 05/12/17 08:00 MCHC Differential 34.0 pg (28.0-36.0) 05/12/17 08:00 RDW 13.9 % (11.5-20.0) 05/12/17 08:00 Plt Count 37 Th/cmm (150-400) L D 05/12/17 08:00 MPV 8.5 fl 05/12/17 08:00 Neutrophils % 46.6 % (40.0-80.0) 05/12/17 08:00 Lymphocytes % 32.4 % (20.0-50.0) 05/12/17 08:00 Monocytes % 12.7 % (2.0-10.0) H 05/12/17 08:00 Eosinophils % 8.0 % (0.0-5.0) H 05/12/17 08:00 Basophils % 0.3 % (0.0-2.0) 05/12/17 08:00 Neutrophils (Manual) 59 % (40-80) 05/11/17 11:20 Lymphocytes 28 % (20-50) 05/11/17 11:20 Monocytes 7 % (2-10) 05/11/17 11:20 Eosinophils 6 % (0-5) H 05/11/17 11:20 Basophils 1 % (0-3) 05/08/17 17:01 Platelet Estimate DECREASED PLATELETS (NORMAL) 05/10/17 05:20 Platelet Morphology NORMAL (NORMAL) 05/08/17 17:01 PT 12.9 SECONDS (9.5-11.5) H 05/08/17 17:01 INR 1.23 (0.5-1.4) 05/08/17 17:01 Sodium 134 mEq/L (136-145) L 05/12/17 08:00 Potassium 3.3 mEq/L (3.5-5.1) L 05/12/17 08:00 Chloride 106 mEq/L (98-107) 05/12/17 08:00 Carbon Dioxide 23.8 mEq/L (21.0-31.0) 05/12/17 08:00 Anion Gap 7.5 (7.0-16.0) 05/12/17 08:00 BUN 7 mg/dL (7-25) 05/12/17 08:00 Creatinine 0.7 mg/dL (0.7-1.3) 05/12/17 08:00 Est GFR ( Amer) > 60.0 ml/min (>90) 05/12/17 08:00 Est GFR (Non-Af Amer) > 60.0 ml/min 05/12/17 08:00 BUN/Creatinine Ratio 10.0 05/12/17 08:00 Glucose 138 mg/dL (70-105) H D 05/12/17 08:00 Whole Bld Lactic Acid 1.82 mmol/L (0.60-1.99) 05/08/17 17:01 Calcium 8.5 mg/dL (8.6-10.3) L 05/12/17 08:00 Iron 114 ug/dL (38-169) 05/09/17 04:45 TIBC 199 ug/dL (250-450) L 05/09/17 04:45 Iron Saturation 57 % (15-55) H 05/09/17 04:45 Unsaturated IBC 85 ug/dL (111-343) L 05/09/17 04:45 Ferritin 393 ng/mL (30-400) 05/09/17 04:45 Total Bilirubin 0.8 mg/dL (0.3-1.0) 05/08/17 17:01 AST 79 U/L (13-39) H 05/08/17 17:01 ALT 39 U/L (7-52) 05/08/17 17:01 Alkaline Phosphatase 111 U/L (34-104) H 05/08/17 17:01 Creatine Kinase 55 U/L (30-223) 05/08/17 17:01 Troponin I 0.01 ng/mL (0.01-0.05) 05/08/17 17:01 B-Natriuretic Peptide 8.2 pg/mL (5.0-100.0) 05/08/17 17:01 Total Protein 6.4 gm/dL (6.0-8.3) 05/08/17 17:01 Albumin 3.0 gm/dL (4.2-5.5) L 05/08/17 17:01 Globulin 3.4 gm/dL 05/08/17 17:01 Albumin/Globulin Ratio 0.9 (1.0-1.8) L 05/08/17 17:01 Triglycerides 108 mg/dL (<150) 05/08/17 17:01 Cholesterol 68 mg/dL (<200) 05/08/17 17:01 LDL Cholesterol Direct 29 mg/dL (75-193) L 05/08/17 17:01 HDL Cholesterol 20 mg/dL (23-92) L 05/08/17 17:01 Tumor Marker AFP 89.0 ng/mL (0.0-8.3) H 05/09/17 04:45 Vancomycin Trough 21.6 ug/mL (10-20) H 05/12/17 08:00 - Physical Exam Vitals and I&O: Vital Signs Temp 97.8 F 05/12/17 09:17 Pulse 77 05/12/17 10:31 Resp 18 05/12/17 09:17 BP 154/87 05/12/17 10:31 Pulse Ox 97 05/12/17 09:17 Intake & Output 05/11/17 05/12/17 05/12/17 18:59 06:59 18:59 Intake Total 1000 1596.25 Balance 1000 1596.25 Weight (lbs) 242 lb Intake: Intake, IV Amount 1000 1116.25 D5-0.45NS 1,000 ml @ 75 1000 116.25 mls/hr IV .[id number] [facility] Rx #:[id number] Vancomycin HCl 1.5 gm In 1000 Sodium Chloride 0.9% 500 ml @ 250 mls/hr IV Q12H [facility] Rx#:[id number] Oral 480 Other: # Voids 4 # Bowel Movements 1 Active Medications: Current Medications Acetaminophen/Hydrocodone Bitart ([place] 5mg/325mg) 1 tab PO Q8H PRN PRN Reason: Pain (Severe) Stop: 07/08/17 07:13 Last Admin: 05/09/17 20:50 Dose: 1 tab Amitriptyline HCl (Elavil) 25 mg PO HS [facility] PRN Reason: Protocol Stop: 07/08/17 20:59 Last Admin: 05/11/17 20:18 Dose: 25 mg Artificial Tears (Artificial Tears Ophth Soln) 1 drop EACH EYE QID [facility] Stop: 07/08/17 08:59 Last Admin: 05/12/17 09:50 Dose: 1 drop Benztropine Mesylate (Cogentin) 1 mg PO BID [facility] Stop: 07/08/17 08:59 Last Admin: 05/12/17 10:31 Dose: Not Given Ferrous Sulfate (Iron) 325 mg PO DAILY [facility] Stop: 07/08/17 08:59 Last Admin: 05/12/17 10:31 Dose: Not Given Hydromorphone HCl (Dilaudid) 1 mg IVP Q4HR PRN PRN Reason: Pain (Moderate) Stop: 07/07/17 22:22 Last Admin: 05/12/17 02:15 Dose: 1 mg Dextrose/Sodium Chloride (D5-0.45ns) 1,000 mls @ 75 mls/hr IV .[id number] [facility] Stop: 07/07/17 22:23 Last Infusion: 05/11/17 19:10 Dose: 75 mls/hr Vancomycin HCl 1.5 gm/ Sodium (Chloride) 500 mls @ 250 mls/hr IV Q12H [facility] Stop: 07/09/17 20:59 Last Admin: 05/12/17 09:46 Dose: 250 mls/hr Lactulose (Cephulac) 60 gm PO QID [facility] Stop: 07/08/17 08:59 Last Admin: 05/12/17 10:31 Dose: Not Given Lisinopril (Zestril) 20 mg PO DAILY [facility] Stop: 07/08/17 08:59 Last Admin: 05/12/17 10:31 Dose: Not Given Lorazepam (Ativan) 1 mg PO Q6H PRN; Protocol PRN Reason: Anxiety Stop: 07/08/17 07:13 Miscellaneous (Vancomycin Iv Per Pharmacy) 1 ea [facility] PRN PRN PRN Reason: PROTOCOL Stop: 07/07/17 22:22 Multivitamins/Vitamin C (Theragran) 1 tab PO DAILY [facility] Stop: 07/08/17 08:59 Last Admin: 05/12/17 10:32 Dose: Not Given Ondansetron HCl (Zofran) 4 mg IV Q6H PRN PRN Reason: Nausea / Vomiting Stop: 07/07/17 22:22 Pantoprazole Sodium (Protonix) 40 mg PO DAILY [facility] Stop: 07/08/17 08:59 Last Admin: 05/12/17 10:32 Dose: Not Given Quetiapine Fumarate (Seroquel) 50 mg PO HS [facility] PRN Reason: Protocol Stop: 07/08/17 20:59 Last Admin: 05/11/17 20:18 Dose: 50 mg Sodium Chloride (Nacl Tab) 2 gm PO DAILY [facility] Stop: 07/08/17 08:59 Last Admin: 05/12/17 10:32 Dose: Not Given Zolpidem Tartrate (Ambien) 5 mg PO HS PRN PRN Reason: Insomnia Stop: 07/08/17 07:13 Last Admin: 05/10/17 01:41 Dose: 5 mg General: alert HEENT: NC/AT, PERRLA Neck: Supple Lungs: CTAB Abdomen: soft, non-tender, non-distended, positive bowel sound Neurological: no change Internal Medicine Assmt/Plan - Assessment Assessment: Acute exacerbation of chronic obstructive pulmonary disease (COPD) (Acute) J44.1 H/O chronic hepatitis (Acute) Z87.19 HYPONATREMIA WITH LOW BACK PAIN (Acute) Hepatic encephalopathy (Acute) K72.90 Pneumonia, organism unspecified (Acute) J18.9 S/P FALLL...POSS. HIP FX (Acute) - Plan Plan: pain mgmt am labs continue current plan of care
[2017-05-12] MEDS: D5-0.45NS 1,000 ML IV SCH (14:27)
--- NOTE | 2017-05-12 16:38 | General Progress Note ---
Subjective - Review of Systems Service Date: 05/12/17 Events since last encounter: still unstable gait Subjective: feels imbalance when walking Objective - Results Result Diagrams: 05/12/17 08:00 05/12/17 08:00 Recent Labs: Laboratory Last Values WBC 3.6 Th/cmm (4.8-10.8) L 05/12/17 08:00 RBC 3.54 Mil/cmm (3.80-5.80) L 05/12/17 08:00 Hgb 11.3 gm/dL (12-16) L 05/12/17 08:00 Hct 33.2 % (41.0-60) L 05/12/17 08:00 MCV 93.9 fl (80-99) 05/12/17 08:00 MCH 31.9 pg (27.0-31.0) H 05/12/17 08:00 MCHC Differential 34.0 pg (28.0-36.0) 05/12/17 08:00 RDW 13.9 % (11.5-20.0) 05/12/17 08:00 Plt Count 37 Th/cmm (150-400) L D 05/12/17 08:00 MPV 8.5 fl 05/12/17 08:00 Neutrophils % 46.6 % (40.0-80.0) 05/12/17 08:00 Lymphocytes % 32.4 % (20.0-50.0) 05/12/17 08:00 Monocytes % 12.7 % (2.0-10.0) H 05/12/17 08:00 Eosinophils % 8.0 % (0.0-5.0) H 05/12/17 08:00 Basophils % 0.3 % (0.0-2.0) 05/12/17 08:00 Neutrophils (Manual) 59 % (40-80) 05/11/17 11:20 Lymphocytes 28 % (20-50) 05/11/17 11:20 Monocytes 7 % (2-10) 05/11/17 11:20 Eosinophils 6 % (0-5) H 05/11/17 11:20 Basophils 1 % (0-3) 05/08/17 17:01 Platelet Estimate DECREASED PLATELETS (NORMAL) 05/10/17 05:20 Platelet Morphology NORMAL (NORMAL) 05/08/17 17:01 PT 12.9 SECONDS (9.5-11.5) H 05/08/17 17:01 INR 1.23 (0.5-1.4) 05/08/17 17:01 Sodium 134 mEq/L (136-145) L 05/12/17 08:00 Potassium 3.3 mEq/L (3.5-5.1) L 05/12/17 08:00 Chloride 106 mEq/L (98-107) 05/12/17 08:00 Carbon Dioxide 23.8 mEq/L (21.0-31.0) 05/12/17 08:00 Anion Gap 7.5 (7.0-16.0) 05/12/17 08:00 BUN 7 mg/dL (7-25) 05/12/17 08:00 Creatinine 0.7 mg/dL (0.7-1.3) 05/12/17 08:00 Est GFR ( Amer) > 60.0 ml/min (>90) 05/12/17 08:00 Est GFR (Non-Af Amer) > 60.0 ml/min 05/12/17 08:00 BUN/Creatinine Ratio 10.0 05/12/17 08:00 Glucose 138 mg/dL (70-105) H D 05/12/17 08:00 Whole Bld Lactic Acid 1.82 mmol/L (0.60-1.99) 05/08/17 17:01 Calcium 8.5 mg/dL (8.6-10.3) L 05/12/17 08:00 Iron 114 ug/dL (38-169) 05/09/17 04:45 TIBC 199 ug/dL (250-450) L 05/09/17 04:45 Iron Saturation 57 % (15-55) H 05/09/17 04:45 Unsaturated IBC 85 ug/dL (111-343) L 05/09/17 04:45 Ferritin 393 ng/mL (30-400) 05/09/17 04:45 Total Bilirubin 0.8 mg/dL (0.3-1.0) 05/08/17 17:01 AST 79 U/L (13-39) H 05/08/17 17:01 ALT 39 U/L (7-52) 05/08/17 17:01 Alkaline Phosphatase 111 U/L (34-104) H 05/08/17 17:01 Creatine Kinase 55 U/L (30-223) 05/08/17 17:01 Troponin I 0.01 ng/mL (0.01-0.05) 05/08/17 17:01 B-Natriuretic Peptide 8.2 pg/mL (5.0-100.0) 05/08/17 17:01 Total Protein 6.4 gm/dL (6.0-8.3) 05/08/17 17:01 Albumin 3.0 gm/dL (4.2-5.5) L 05/08/17 17:01 Globulin 3.4 gm/dL 05/08/17 17:01 Albumin/Globulin Ratio 0.9 (1.0-1.8) L 05/08/17 17:01 Triglycerides 108 mg/dL (<150) 05/08/17 17:01 Cholesterol 68 mg/dL (<200) 05/08/17 17:01 LDL Cholesterol Direct 29 mg/dL (75-193) L 05/08/17 17:01 HDL Cholesterol 20 mg/dL (23-92) L 05/08/17 17:01 Tumor Marker AFP 89.0 ng/mL (0.0-8.3) H 05/09/17 04:45 Vancomycin Trough 21.6 ug/mL (10-20) H 05/12/17 08:00 - Physical Exam Vitals and I&O: Vital Signs Temp 97.9 F 05/12/17 12:28 Pulse 88 05/12/17 12:28 Resp 17 05/12/17 12:28 BP 167/94 05/12/17 12:28 Pulse Ox 97 05/12/17 12:28 Intake & Output 05/11/17 05/12/17 05/12/17 18:59 06:59 18:59 Intake Total 1000 2480.00 Balance 1000 2480.00 Weight (lbs) 109.769 kg Intake: Intake, IV Amount 1000 2000.00 D5-0.45NS 1,000 ml @ 75 1000 1000.00 mls/hr IV .[id number] [facility] Rx #:[id number] Vancomycin HCl 1.5 gm In 1000 Sodium Chloride 0.9% 500 ml @ 250 mls/hr IV Q12H [facility] Rx#:[id number] Oral 480 Other: # Voids 4 # Bowel Movements 1 Active Medications: Current Medications Acetaminophen/Hydrocodone Bitart ([place] 5mg/325mg) 1 tab PO Q8H PRN PRN Reason: Pain (Severe) Stop: 07/08/17 07:13 Last Admin: 05/09/17 20:50 Dose: 1 tab Amitriptyline HCl (Elavil) 25 mg PO HS [facility] PRN Reason: Protocol Stop: 07/08/17 20:59 Last Admin: 05/11/17 20:18 Dose: 25 mg Artificial Tears (Artificial Tears Ophth Soln) 1 drop EACH EYE QID [facility] Stop: 07/08/17 08:59 Last Admin: 05/12/17 16:27 Dose: 1 drop Benztropine Mesylate (Cogentin) 1 mg PO BID [facility] Stop: 07/08/17 08:59 Last Admin: 05/12/17 16:27 Dose: 1 mg Ferrous Sulfate (Iron) 325 mg PO DAILY [facility] Stop: 07/08/17 08:59 Last Admin: 05/12/17 10:31 Dose: Not Given Hydromorphone HCl (Dilaudid) 1 mg IVP Q4HR PRN PRN Reason: Pain (Moderate) Stop: 07/07/17 22:22 Last Admin: 05/12/17 13:30 Dose: 1 mg Dextrose/Sodium Chloride (D5-0.45ns) 1,000 mls @ 75 mls/hr IV .[id number] [facility] Stop: 07/07/17 22:23 Last Admin: 05/12/17 14:27 Dose: 75 mls/hr Lactulose (Cephulac) 60 gm PO QID [facility] Stop: 07/08/17 08:59 Last Admin: 05/12/17 13:24 Dose: Not Given Lisinopril (Zestril) 20 mg PO DAILY [facility] Stop: 07/08/17 08:59 Last Admin: 05/12/17 10:31 Dose: Not Given Lorazepam (Ativan) 1 mg PO Q6H PRN; Protocol PRN Reason: Anxiety Stop: 07/08/17 07:13 Multivitamins/Vitamin C (Theragran) 1 tab PO DAILY [facility] Stop: 07/08/17 08:59 Last Admin: 05/12/17 10:32 Dose: Not Given Ondansetron HCl (Zofran) 4 mg IV Q6H PRN PRN Reason: Nausea / Vomiting Stop: 07/07/17 22:22 Pantoprazole Sodium (Protonix) 40 mg PO DAILY [facility] Stop: 07/08/17 08:59 Last Admin: 05/12/17 10:32 Dose: Not Given Quetiapine Fumarate (Seroquel) 50 mg PO HS [facility] PRN Reason: Protocol Stop: 07/08/17 20:59 Last Admin: 05/11/17 20:18 Dose: 50 mg Sodium Chloride (Nacl Tab) 2 gm PO DAILY [facility] Stop: 07/08/17 08:59 Last Admin: 05/12/17 10:32 Dose: Not Given Zolpidem Tartrate (Ambien) 5 mg PO HS PRN PRN Reason: Insomnia Stop: 07/08/17 07:13 Last Admin: 05/10/17 01:41 Dose: 5 mg General: No acute distress HEENT: Atraumatic Cardiovascular: Regular rate, Normal S1 Lungs: Clear to auscultation Assessment/Plan - Problem List Patient Problems: All Active Problems Acute exacerbation of chronic obstructive pulmonary disease (COPD) (Acute) J44.1 H/O chronic hepatitis (Acute) Z87.19 HYPONATREMIA WITH LOW BACK PAIN (Acute) Hepatic encephalopathy (Acute) K72.90 Pneumonia, organism unspecified (Acute) J18.9 S/P FALLL...POSS. HIP FX (Acute) - Assessment Assessment: * Hepatitis c cirrhosis * splenomegaly * Chronic thrombocytopenia * Chronic leukopenia * US no liver lesions * high AFP needs monitoring * No evidence of iron deficiency
--- NOTE | 2017-05-12 17:01 | Infectious Disease Prog Note ---
Infectious Disease Subjective - Review of Systems Service Date: 05/12/17 Subjective: Doing well. Infectious Disease Objective - Results Result Diagrams: 05/12/17 08:00 05/12/17 08:00 Recent Labs: Laboratory Last Values WBC 3.6 Th/cmm (4.8-10.8) L 05/12/17 08:00 RBC 3.54 Mil/cmm (3.80-5.80) L 05/12/17 08:00 Hgb 11.3 gm/dL (12-16) L 05/12/17 08:00 Hct 33.2 % (41.0-60) L 05/12/17 08:00 MCV 93.9 fl (80-99) 05/12/17 08:00 MCH 31.9 pg (27.0-31.0) H 05/12/17 08:00 MCHC Differential 34.0 pg (28.0-36.0) 05/12/17 08:00 RDW 13.9 % (11.5-20.0) 05/12/17 08:00 Plt Count 37 Th/cmm (150-400) L D 05/12/17 08:00 MPV 8.5 fl 05/12/17 08:00 Neutrophils % 46.6 % (40.0-80.0) 05/12/17 08:00 Lymphocytes % 32.4 % (20.0-50.0) 05/12/17 08:00 Monocytes % 12.7 % (2.0-10.0) H 05/12/17 08:00 Eosinophils % 8.0 % (0.0-5.0) H 05/12/17 08:00 Basophils % 0.3 % (0.0-2.0) 05/12/17 08:00 Neutrophils (Manual) 59 % (40-80) 05/11/17 11:20 Lymphocytes 28 % (20-50) 05/11/17 11:20 Monocytes 7 % (2-10) 05/11/17 11:20 Eosinophils 6 % (0-5) H 05/11/17 11:20 Basophils 1 % (0-3) 05/08/17 17:01 Platelet Estimate DECREASED PLATELETS (NORMAL) 05/10/17 05:20 Platelet Morphology NORMAL (NORMAL) 05/08/17 17:01 PT 12.9 SECONDS (9.5-11.5) H 05/08/17 17:01 INR 1.23 (0.5-1.4) 05/08/17 17:01 Sodium 134 mEq/L (136-145) L 05/12/17 08:00 Potassium 3.3 mEq/L (3.5-5.1) L 05/12/17 08:00 Chloride 106 mEq/L (98-107) 05/12/17 08:00 Carbon Dioxide 23.8 mEq/L (21.0-31.0) 05/12/17 08:00 Anion Gap 7.5 (7.0-16.0) 05/12/17 08:00 BUN 7 mg/dL (7-25) 05/12/17 08:00 Creatinine 0.7 mg/dL (0.7-1.3) 05/12/17 08:00 Est GFR ( Amer) > 60.0 ml/min (>90) 05/12/17 08:00 Est GFR (Non-Af Amer) > 60.0 ml/min 05/12/17 08:00 BUN/Creatinine Ratio 10.0 05/12/17 08:00 Glucose 138 mg/dL (70-105) H D 05/12/17 08:00 Whole Bld Lactic Acid 1.82 mmol/L (0.60-1.99) 05/08/17 17:01 Calcium 8.5 mg/dL (8.6-10.3) L 05/12/17 08:00 Iron 114 ug/dL (38-169) 05/09/17 04:45 TIBC 199 ug/dL (250-450) L 05/09/17 04:45 Iron Saturation 57 % (15-55) H 05/09/17 04:45 Unsaturated IBC 85 ug/dL (111-343) L 05/09/17 04:45 Ferritin 393 ng/mL (30-400) 05/09/17 04:45 Total Bilirubin 0.8 mg/dL (0.3-1.0) 05/08/17 17:01 AST 79 U/L (13-39) H 05/08/17 17:01 ALT 39 U/L (7-52) 05/08/17 17:01 Alkaline Phosphatase 111 U/L (34-104) H 05/08/17 17:01 Creatine Kinase 55 U/L (30-223) 05/08/17 17:01 Troponin I 0.01 ng/mL (0.01-0.05) 05/08/17 17:01 B-Natriuretic Peptide 8.2 pg/mL (5.0-100.0) 05/08/17 17:01 Total Protein 6.4 gm/dL (6.0-8.3) 05/08/17 17:01 Albumin 3.0 gm/dL (4.2-5.5) L 05/08/17 17:01 Globulin 3.4 gm/dL 05/08/17 17:01 Albumin/Globulin Ratio 0.9 (1.0-1.8) L 05/08/17 17:01 Triglycerides 108 mg/dL (<150) 05/08/17 17:01 Cholesterol 68 mg/dL (<200) 05/08/17 17:01 LDL Cholesterol Direct 29 mg/dL (75-193) L 05/08/17 17:01 HDL Cholesterol 20 mg/dL (23-92) L 05/08/17 17:01 Tumor Marker AFP 89.0 ng/mL (0.0-8.3) H 05/09/17 04:45 Vancomycin Trough 21.6 ug/mL (10-20) H 05/12/17 08:00 - Physical Exam Vitals and I&O: Vital Signs Temp 97.7 F 05/12/17 16:00 Pulse 85 05/12/17 16:00 Resp 17 05/12/17 16:00 BP 164/88 05/12/17 16:00 Pulse Ox 98 05/12/17 16:00 Intake & Output 05/11/17 05/12/17 05/12/17 18:59 06:59 18:59 Intake Total 1000 2480.00 Balance 1000 2480.00 Weight (lbs) 109.769 kg Intake: Intake, IV Amount 1000 2000.00 D5-0.45NS 1,000 ml @ 75 1000 1000.00 mls/hr IV .[id number] [facility] Rx #:[id number] Vancomycin HCl 1.5 gm In 1000 Sodium Chloride 0.9% 500 ml @ 250 mls/hr IV Q12H [facility] Rx#:[id number] Oral 480 Other: # Voids 4 # Bowel Movements 1 Active Medications: Current Medications Acetaminophen/Hydrocodone Bitart ([place] 5mg/325mg) 1 tab PO Q8H PRN PRN Reason: Pain (Severe) Stop: 07/08/17 07:13 Last Admin: 05/09/17 20:50 Dose: 1 tab Amitriptyline HCl (Elavil) 25 mg PO HS [facility] PRN Reason: Protocol Stop: 07/08/17 20:59 Last Admin: 05/11/17 20:18 Dose: 25 mg Artificial Tears (Artificial Tears Ophth Soln) 1 drop EACH EYE QID [facility] Stop: 07/08/17 08:59 Last Admin: 05/12/17 16:27 Dose: 1 drop Benztropine Mesylate (Cogentin) 1 mg PO BID [facility] Stop: 07/08/17 08:59 Last Admin: 05/12/17 16:27 Dose: 1 mg Ferrous Sulfate (Iron) 325 mg PO DAILY [facility] Stop: 07/08/17 08:59 Last Admin: 05/12/17 10:31 Dose: Not Given Hydromorphone HCl (Dilaudid) 1 mg IVP Q4HR PRN PRN Reason: Pain (Moderate) Stop: 07/07/17 22:22 Last Admin: 05/12/17 13:30 Dose: 1 mg Dextrose/Sodium Chloride (D5-0.45ns) 1,000 mls @ 75 mls/hr IV .[id number] [facility] Stop: 07/07/17 22:23 Last Admin: 05/12/17 14:27 Dose: 75 mls/hr Lactulose (Cephulac) 60 gm PO QID [facility] Stop: 07/08/17 08:59 Last Admin: 05/12/17 13:24 Dose: Not Given Lisinopril (Zestril) 20 mg PO DAILY [facility] Stop: 07/08/17 08:59 Last Admin: 05/12/17 10:31 Dose: Not Given Lorazepam (Ativan) 1 mg PO Q6H PRN; Protocol PRN Reason: Anxiety Stop: 07/08/17 07:13 Multivitamins/Vitamin C (Theragran) 1 tab PO DAILY [facility] Stop: 07/08/17 08:59 Last Admin: 05/12/17 10:32 Dose: Not Given Ondansetron HCl (Zofran) 4 mg IV Q6H PRN PRN Reason: Nausea / Vomiting Stop: 07/07/17 22:22 Pantoprazole Sodium (Protonix) 40 mg PO DAILY [facility] Stop: 07/08/17 08:59 Last Admin: 05/12/17 10:32 Dose: Not Given Quetiapine Fumarate (Seroquel) 50 mg PO HS [facility] PRN Reason: Protocol Stop: 07/08/17 20:59 Last Admin: 05/11/17 20:18 Dose: 50 mg Sodium Chloride (Nacl Tab) 2 gm PO DAILY [facility] Stop: 07/08/17 08:59 Last Admin: 05/12/17 10:32 Dose: Not Given Zolpidem Tartrate (Ambien) 5 mg PO HS PRN PRN Reason: Insomnia Stop: 07/08/17 07:13 Last Admin: 05/10/17 01:41 Dose: 5 mg General: no acute distress, well developed, well nourished HEENT: atraumatic, normocephalic, PERRLA, EOMI Neck: supple, no thyromegaly Cardiovascular: S1S2, regular, systolic murmur Lungs: clear to auscultation bilaterally, clear to percussion Abdomen: soft, no tender, no distended Extremities: no cyanosis, no clubbing Neurological: awake, alert, oriented Skin: intact Infectious Disease Assmt/Plan - Problem List Patient Problems: All Active Problems Acute exacerbation of chronic obstructive pulmonary disease (COPD) (Acute) J44.1 H/O chronic hepatitis (Acute) Z87.19 HYPONATREMIA WITH LOW BACK PAIN (Acute) Hepatic encephalopathy (Acute) K72.90 Pneumonia, organism unspecified (Acute) J18.9 S/P FALLL...POSS. HIP FX (Acute) - Assessment Assessment: 1. Pancytopenia, secondary to liver cirrhosis. Consider medication induced. 2. Cardiac] history. 3. History of COPD, asthma. 4. Coronary artery disease. 5. Hypertension. 6. History of for left hip ORIF. 7. Osteoarthritis. 6. Chronuc cholecystitis. - Plan Plan: Continue levaquin po.
[2017-05-13] MEDS: D5-0.45NS 1,000 ML IV SCH ×2 (04:57→19:15)
[2017-05-13 06:05] LABS: ALB/GLOB RATIO 0.9 (1.0-1.8); ALKALINE PHOSPHATASE 90 U/L (34-104); ANION GAP 8.9 (7.0-16.0); BILIRUBIN,TOTAL 1.3 mg/dL (0.3-1.0); BUN - UREA NITROGEN 6 mg/dL (7-25); BUN/CREATININE RATIO 7.5; CALCIUM SERUM 8.1 mg/dL (8.6-10.3); CARBON DIOXIDE 23.4 mEq/L (21.0-31.0); CHLORIDE 109 mEq/L (98-107); CREATININE - SERUM 0.8 mg/dL (0.7-1.3); POTASSIUM SERUM 3.3 mEq/L (3.5-5.1); SGOT 60 U/L (13-39); SGPT/ALT 32 U/L (7-52); SODIUM SERUM 138 mEq/L (136-145)
[2017-05-13 06:13] LABS: GLUCOSE 120 mg/dL (70-105)
[2017-05-13] MEDS: HYDROmorphone 1 mg/mL 1mL Syr IVP PRN ×4 (06:33→20:22)
[2017-05-13] MEDS: Polyvinyl Alcohol Ophth Soln 15 mL Bottle EACH EYE SCH ×4 (09:26→20:22)
[2017-05-13] MEDS: Lactulose 10 Gm/15 mL 30mL UDC PO SCH ×4 (09:27→20:23)
[2017-05-13] MEDS: Pantoprazole 40 mg EC Tab PO SCH (09:27)
[2017-05-13] MEDS: Ferrous Sulfate 325 MG TAB PO SCH (09:28)
[2017-05-13] MEDS: Multivitamin Tab PO SCH (09:28)
[2017-05-13] MEDS: Benztropine 1 MG TAB PO SCH ×2 (09:28→17:03)
[2017-05-13] MEDS ORDERED: Potassium Chloride 20 mEq ER Tab PO ONE (09:30)
[2017-05-13] MEDS: Hydrocodone/APAP 5mg/325mg Tab PO PRN (13:20)
[2017-05-14] MEDS: HYDROmorphone 1 mg/mL 1mL Syr IVP PRN ×5 (00:28→20:27)
[2017-05-14 06:05] LABS: HEMATOCRIT 32.9 % (41.0-60); HEMOGLOBIN 11.1 gm/dL (12-16); MEAN CELL VOLUME 93.4 fl (80-99); MEAN CORPUSCULAR HEMOGLOBIN 31.4 pg (27.0-31.0); MEAN CORPUSCULAR HGB CONC 33.6 pg (28.0-36.0); RED BLOOD COUNT 3.53 Mil/cmm (3.80-5.80); RED CELL DISTRIBUTION WIDTH 13.9 % (11.5-20.0)
--- NOTE | 2017-05-14 06:15 | Progress Notes ---
DATE: 05/13/2017 SUBJECTIVE: The patient was seen in his room, lying on the bed. The patient is awake, alert, oriented. Denies any pain or discomfort, otherwise appears to be comfortable in no acute distress. OBJECTIVE: VITAL SIGNS: Temperature 97.9, heart rate 77, blood pressure 147/84, respirations of 20, saturation of 99% on room air. HEENT: Head is atraumatic and normocephalic. Eyes, bilateral conjunctivae are clear. Bilateral pupils are equally round and reactive. NECK: Supple. No JVD. CARDIOVASCULAR: S1 and S2, without murmur. PULMONARY: Clear to auscultation. GASTROINTESTINAL: Soft and nontender without guarding. Positive bowel sounds. MUSCULOSKELETAL: No clubbing, no cyanosis noted. ASSESSMENT: 1. Liver cirrhosis. 2. Chronic obstructive pulmonary disease. 3. Coronary artery disease. 4. Hypertension. 5. Osteoarthritis. 6. Schizophrenia. PLAN: We will give a replacement for the potassium today of 3.3. We will continue to monitor chemistry, H and H, and platelet levels. Treatment plans were discussed with the patient's nurse. Treatment plans were discussed with Dr. Nair. JOB# [id number]
[2017-05-14 06:34] LABS: WHITE BLOOD COUNT 3.7 Th/cmm (4.8-10.8)
[2017-05-14 06:35] LABS: PLATELET COUNT 45 Th/cmm (150-400)
[2017-05-14 06:39] LABS: ALB/GLOB RATIO 0.9 (1.0-1.8); ALKALINE PHOSPHATASE 101 U/L (34-104); ANION GAP 7.2 (7.0-16.0); BILIRUBIN,TOTAL 1.3 mg/dL (0.3-1.0); BUN - UREA NITROGEN 7 mg/dL (7-25); BUN/CREATININE RATIO 7.8; CALCIUM SERUM 8.4 mg/dL (8.6-10.3); CARBON DIOXIDE 24.3 mEq/L (21.0-31.0); CHLORIDE 105 mEq/L (98-107); CREATININE - SERUM 0.9 mg/dL (0.7-1.3); GLUCOSE 135 mg/dL (70-105); POTASSIUM SERUM 3.5 mEq/L (3.5-5.1); SGOT 59 U/L (13-39); SGPT/ALT 33 U/L (7-52); SODIUM SERUM 133 mEq/L (136-145)
[2017-05-14 07:42] LABS: BAND NEUTROPHILE 1 % (0-10); NEUTROPHILS 44 % (40-80); TOTAL CELLS COUNTED 100
[2017-05-14 07:43] LABS: ANISOCYTOSIS 2+; BASOPHIL 2 % (0-3); EOSINOPHIL 12 % (0-5); PLATELET ESTIMATE DECREASED PLATELETS (NORMAL)
[2017-05-14] MEDS: Benztropine 1 MG TAB PO SCH ×2 (08:08→16:20)
[2017-05-14] MEDS: Ferrous Sulfate 325 MG TAB PO SCH (08:08)
[2017-05-14] MEDS: Polyvinyl Alcohol Ophth Soln 15 mL Bottle EACH EYE SCH ×4 (08:09→20:28)
[2017-05-14] MEDS: Pantoprazole 40 mg EC Tab PO SCH (08:09)
[2017-05-14] MEDS: Multivitamin Tab PO SCH (08:09)
[2017-05-14] MEDS: Lactulose 10 Gm/15 mL 30mL UDC PO SCH ×5 (10:27→20:30)
--- NOTE | 2017-05-14 10:38 | General Progress Note ---
Subjective - Review of Systems Events since last encounter: pt awake alert denies pain at this time comfortable with no distress Objective - Results Result Diagrams: 05/14/17 05:52 05/14/17 05:52 Recent Labs: Laboratory Last Values WBC 3.7 Th/cmm (4.8-10.8) L 05/14/17 05:52 RBC 3.53 Mil/cmm (3.80-5.80) L 05/14/17 05:52 Hgb 11.1 gm/dL (12-16) L 05/14/17 05:52 Hct 32.9 % (41.0-60) L 05/14/17 05:52 MCV 93.4 fl (80-99) 05/14/17 05:52 MCH 31.4 pg (27.0-31.0) H 05/14/17 05:52 MCHC Differential 33.6 pg (28.0-36.0) 05/14/17 05:52 RDW 13.9 % (11.5-20.0) 05/14/17 05:52 Plt Count 45 Th/cmm (150-400) L D 05/14/17 05:52 MPV 8.0 fl 05/14/17 05:52 Neutrophils % 46.6 % (40.0-80.0) 05/12/17 08:00 Band Neutrophils % 1 % (0-10) 05/14/17 05:52 Lymphocytes % 32.4 % (20.0-50.0) 05/12/17 08:00 Monocytes % 12.7 % (2.0-10.0) H 05/12/17 08:00 Eosinophils % 8.0 % (0.0-5.0) H 05/12/17 08:00 Basophils % 0.3 % (0.0-2.0) 05/12/17 08:00 Neutrophils (Manual) 44 % (40-80) 05/14/17 05:52 Lymphocytes 37 % (20-50) 05/14/17 05:52 Monocytes 4 % (2-10) 05/14/17 05:52 Eosinophils 12 % (0-5) H 05/14/17 05:52 Basophils 2 % (0-3) 05/14/17 05:52 Platelet Estimate DECREASED PLATELETS (NORMAL) 05/14/17 05:52 Platelet Morphology NORMAL (NORMAL) 05/08/17 17:01 Anisocytosis 2+ 05/14/17 05:52 PT 12.9 SECONDS (9.5-11.5) H 05/08/17 17:01 INR 1.23 (0.5-1.4) 05/08/17 17:01 Sodium 133 mEq/L (136-145) L 05/14/17 05:52 Potassium 3.5 mEq/L (3.5-5.1) 05/14/17 05:52 Chloride 105 mEq/L (98-107) 05/14/17 05:52 Carbon Dioxide 24.3 mEq/L (21.0-31.0) 05/14/17 05:52 Anion Gap 7.2 (7.0-16.0) 05/14/17 05:52 BUN 7 mg/dL (7-25) 05/14/17 05:52 Creatinine 0.9 mg/dL (0.7-1.3) 05/14/17 05:52 Est GFR ( Amer) > 60.0 ml/min (>90) 05/14/17 05:52 Est GFR (Non-Af Amer) > 60.0 ml/min 05/14/17 05:52 BUN/Creatinine Ratio 7.8 05/14/17 05:52 Glucose 135 mg/dL (70-105) H 05/14/17 05:52 Whole Bld Lactic Acid 1.82 mmol/L (0.60-1.99) 05/08/17 17:01 Calcium 8.4 mg/dL (8.6-10.3) L 05/14/17 05:52 Iron 114 ug/dL (38-169) 05/09/17 04:45 TIBC 199 ug/dL (250-450) L 05/09/17 04:45 Iron Saturation 57 % (15-55) H 05/09/17 04:45 Unsaturated IBC 85 ug/dL (111-343) L 05/09/17 04:45 Ferritin 393 ng/mL (30-400) 05/09/17 04:45 Total Bilirubin 1.3 mg/dL (0.3-1.0) H 05/14/17 05:52 AST 59 U/L (13-39) H 05/14/17 05:52 ALT 33 U/L (7-52) 05/14/17 05:52 Alkaline Phosphatase 101 U/L (34-104) 05/14/17 05:52 Ammonia 54 umol/L (16-53) H 05/14/17 05:52 Creatine Kinase 55 U/L (30-223) 05/08/17 17:01 Troponin I 0.01 ng/mL (0.01-0.05) 05/08/17 17:01 B-Natriuretic Peptide 8.2 pg/mL (5.0-100.0) 05/08/17 17:01 Total Protein 6.1 gm/dL (6.0-8.3) 05/14/17 05:52 Albumin 2.9 gm/dL (4.2-5.5) L 05/14/17 05:52 Globulin 3.2 gm/dL 05/14/17 05:52 Albumin/Globulin Ratio 0.9 (1.0-1.8) L 05/14/17 05:52 Triglycerides 108 mg/dL (<150) 05/08/17 17:01 Cholesterol 68 mg/dL (<200) 05/08/17 17:01 LDL Cholesterol Direct 29 mg/dL (75-193) L 05/08/17 17:01 HDL Cholesterol 20 mg/dL (23-92) L 05/08/17 17:01 Tumor Marker AFP 89.0 ng/mL (0.0-8.3) H 05/09/17 04:45 Vancomycin Trough 21.6 ug/mL (10-20) H 05/12/17 08:00 - Physical Exam Vitals and I&O: Vital Signs Temp 97.8 F 05/14/17 04:00 Pulse 87 05/14/17 08:08 Resp 19 05/14/17 04:00 BP 148/82 05/14/17 08:08 Pulse Ox 99 05/14/17 04:00 Intake & Output 05/13/17 05/14/17 05/14/17 18:59 06:59 18:59 Intake Total 2609 Balance 2609 Weight (lbs) 108.409 kg 109.769 kg Intake: Intake, IV Amount 1000 D5-0.45NS 1,000 ml @ 75 1000 mls/hr IV .[id number] [facility] Rx #:[id number] Oral 1609 Other: # Voids 3 # Bowel Movements 3 Stool Characteristics Liquid Active Medications: Current Medications Acetaminophen/Hydrocodone Bitart ([place] 5mg/325mg) 1 tab PO Q8H PRN PRN Reason: Pain (Severe) Stop: 07/08/17 07:13 Last Admin: 05/13/17 13:20 Dose: 1 tab Amitriptyline HCl (Elavil) 25 mg PO HS [facility] PRN Reason: Protocol Stop: 07/08/17 20:59 Last Admin: 05/13/17 20:23 Dose: 25 mg Artificial Tears (Artificial Tears Ophth Soln) 1 drop EACH EYE QID [facility] Stop: 07/08/17 08:59 Last Admin: 05/14/17 08:09 Dose: 1 drop Benztropine Mesylate (Cogentin) 1 mg PO BID [facility] Stop: 07/08/17 08:59 Last Admin: 05/14/17 08:08 Dose: 1 mg Ferrous Sulfate (Iron) 325 mg PO DAILY [facility] Stop: 07/08/17 08:59 Last Admin: 05/14/17 08:08 Dose: 325 mg Hydromorphone HCl (Dilaudid) 1 mg IVP Q4HR PRN PRN Reason: Pain (Moderate) Stop: 07/07/17 22:22 Last Admin: 05/14/17 08:06 Dose: 1 mg Dextrose/Sodium Chloride (D5-0.45ns) 1,000 mls @ 75 mls/hr IV .[id number] [facility] Stop: 07/07/17 22:23 Last Admin: 05/13/17 19:15 Dose: 75 mls/hr Lactulose (Cephulac) 60 gm PO QID [facility] Stop: 07/08/17 08:59 Last Admin: 05/14/17 10:28 Dose: 60 gm Levofloxacin (Levaquin) 500 mg PO DAILY [facility] Stop: 07/12/17 08:59 Last Admin: 05/14/17 08:09 Dose: 500 mg Lisinopril (Zestril) 20 mg PO DAILY [facility] Stop: 07/08/17 08:59 Last Admin: 05/14/17 08:08 Dose: 20 mg Lorazepam (Ativan) 1 mg PO Q6H PRN; Protocol PRN Reason: Anxiety Stop: 07/08/17 07:13 Multivitamins/Vitamin C (Theragran) 1 tab PO DAILY [facility] Stop: 07/08/17 08:59 Last Admin: 05/14/17 08:09 Dose: 1 tab Ondansetron HCl (Zofran) 4 mg IV Q6H PRN PRN Reason: Nausea / Vomiting Stop: 07/07/17 22:22 Pantoprazole Sodium (Protonix) 40 mg PO DAILY [facility] Stop: 07/08/17 08:59 Last Admin: 05/14/17 08:09 Dose: 40 mg Quetiapine Fumarate (Seroquel) 50 mg PO HS [facility] PRN Reason: Protocol Stop: 07/08/17 20:59 Last Admin: 05/13/17 20:22 Dose: 50 mg Sodium Chloride (Nacl Tab) 2 gm PO DAILY [facility] Stop: 07/08/17 08:59 Last Admin: 05/14/17 08:08 Dose: 2 gm Zolpidem Tartrate (Ambien) 5 mg PO HS PRN PRN Reason: Insomnia Stop: 07/08/17 07:13 Last Admin: 05/10/17 01:41 Dose: 5 mg General: No acute distress HEENT: Atraumatic Cardiovascular: Regular rate, Normal S1 Lungs: Clear to auscultation Assessment/Plan - Problem List Patient Problems: All Active Problems Acute exacerbation of chronic obstructive pulmonary disease (COPD) (Acute) J44.1 H/O chronic hepatitis (Acute) Z87.19 HYPONATREMIA WITH LOW BACK PAIN (Acute) Hepatic encephalopathy (Acute) K72.90 Pneumonia, organism unspecified (Acute) J18.9 S/P FALLL...POSS. HIP FX (Acute) - Plan Plan: cpm
[2017-05-14] MEDS: Hydrocodone/APAP 5mg/325mg Tab PO PRN (13:59)
--- NOTE | 2017-05-14 14:03 | General Progress Note ---
Subjective - Review of Systems Service Date: 05/14/17 Events since last encounter: feels more steady on feet Objective - Results Result Diagrams: 05/14/17 05:52 05/14/17 05:52 Recent Labs: Laboratory Last Values WBC 3.7 Th/cmm (4.8-10.8) L 05/14/17 05:52 RBC 3.53 Mil/cmm (3.80-5.80) L 05/14/17 05:52 Hgb 11.1 gm/dL (12-16) L 05/14/17 05:52 Hct 32.9 % (41.0-60) L 05/14/17 05:52 MCV 93.4 fl (80-99) 05/14/17 05:52 MCH 31.4 pg (27.0-31.0) H 05/14/17 05:52 MCHC Differential 33.6 pg (28.0-36.0) 05/14/17 05:52 RDW 13.9 % (11.5-20.0) 05/14/17 05:52 Plt Count 45 Th/cmm (150-400) L D 05/14/17 05:52 MPV 8.0 fl 05/14/17 05:52 Neutrophils % 46.6 % (40.0-80.0) 05/12/17 08:00 Band Neutrophils % 1 % (0-10) 05/14/17 05:52 Lymphocytes % 32.4 % (20.0-50.0) 05/12/17 08:00 Monocytes % 12.7 % (2.0-10.0) H 05/12/17 08:00 Eosinophils % 8.0 % (0.0-5.0) H 05/12/17 08:00 Basophils % 0.3 % (0.0-2.0) 05/12/17 08:00 Neutrophils (Manual) 44 % (40-80) 05/14/17 05:52 Lymphocytes 37 % (20-50) 05/14/17 05:52 Monocytes 4 % (2-10) 05/14/17 05:52 Eosinophils 12 % (0-5) H 05/14/17 05:52 Basophils 2 % (0-3) 05/14/17 05:52 Platelet Estimate DECREASED PLATELETS (NORMAL) 05/14/17 05:52 Platelet Morphology NORMAL (NORMAL) 05/08/17 17:01 Anisocytosis 2+ 05/14/17 05:52 PT 12.9 SECONDS (9.5-11.5) H 05/08/17 17:01 INR 1.23 (0.5-1.4) 05/08/17 17:01 Sodium 133 mEq/L (136-145) L 05/14/17 05:52 Potassium 3.5 mEq/L (3.5-5.1) 05/14/17 05:52 Chloride 105 mEq/L (98-107) 05/14/17 05:52 Carbon Dioxide 24.3 mEq/L (21.0-31.0) 05/14/17 05:52 Anion Gap 7.2 (7.0-16.0) 05/14/17 05:52 BUN 7 mg/dL (7-25) 05/14/17 05:52 Creatinine 0.9 mg/dL (0.7-1.3) 05/14/17 05:52 Est GFR ( Amer) > 60.0 ml/min (>90) 05/14/17 05:52 Est GFR (Non-Af Amer) > 60.0 ml/min 05/14/17 05:52 BUN/Creatinine Ratio 7.8 05/14/17 05:52 Glucose 135 mg/dL (70-105) H 05/14/17 05:52 Whole Bld Lactic Acid 1.82 mmol/L (0.60-1.99) 05/08/17 17:01 Calcium 8.4 mg/dL (8.6-10.3) L 05/14/17 05:52 Iron 114 ug/dL (38-169) 05/09/17 04:45 TIBC 199 ug/dL (250-450) L 05/09/17 04:45 Iron Saturation 57 % (15-55) H 05/09/17 04:45 Unsaturated IBC 85 ug/dL (111-343) L 05/09/17 04:45 Ferritin 393 ng/mL (30-400) 05/09/17 04:45 Total Bilirubin 1.3 mg/dL (0.3-1.0) H 05/14/17 05:52 AST 59 U/L (13-39) H 05/14/17 05:52 ALT 33 U/L (7-52) 05/14/17 05:52 Alkaline Phosphatase 101 U/L (34-104) 05/14/17 05:52 Ammonia 54 umol/L (16-53) H 05/14/17 05:52 Creatine Kinase 55 U/L (30-223) 05/08/17 17:01 Troponin I 0.01 ng/mL (0.01-0.05) 05/08/17 17:01 B-Natriuretic Peptide 8.2 pg/mL (5.0-100.0) 05/08/17 17:01 Total Protein 6.1 gm/dL (6.0-8.3) 05/14/17 05:52 Albumin 2.9 gm/dL (4.2-5.5) L 05/14/17 05:52 Globulin 3.2 gm/dL 05/14/17 05:52 Albumin/Globulin Ratio 0.9 (1.0-1.8) L 05/14/17 05:52 Triglycerides 108 mg/dL (<150) 05/08/17 17:01 Cholesterol 68 mg/dL (<200) 05/08/17 17:01 LDL Cholesterol Direct 29 mg/dL (75-193) L 05/08/17 17:01 HDL Cholesterol 20 mg/dL (23-92) L 05/08/17 17:01 Tumor Marker AFP 89.0 ng/mL (0.0-8.3) H 05/09/17 04:45 Vancomycin Trough 21.6 ug/mL (10-20) H 05/12/17 08:00 - Physical Exam Vitals and I&O: Vital Signs Temp 97.8 F 05/14/17 12:00 Pulse 85 05/14/17 12:00 Resp 18 05/14/17 12:00 BP 163/88 05/14/17 12:00 Pulse Ox 99 05/14/17 04:00 Intake & Output 05/13/17 05/14/17 05/14/17 18:59 06:59 18:59 Intake Total 2609 Balance 2609 Weight (lbs) 108.409 kg 109.769 kg Intake: Intake, IV Amount 1000 D5-0.45NS 1,000 ml @ 75 1000 mls/hr IV .[id number] [facility] Rx #:[id number] Oral 1609 Other: # Voids 3 # Bowel Movements 3 Stool Characteristics Liquid Liquid Active Medications: Current Medications Acetaminophen/Hydrocodone Bitart ([place] 5mg/325mg) 1 tab PO Q8H PRN PRN Reason: Pain (Severe) Stop: 07/08/17 07:13 Last Admin: 05/14/17 13:59 Dose: 1 tab Amitriptyline HCl (Elavil) 25 mg PO HS [facility] PRN Reason: Protocol Stop: 07/08/17 20:59 Last Admin: 05/13/17 20:23 Dose: 25 mg Artificial Tears (Artificial Tears Ophth Soln) 1 drop EACH EYE QID [facility] Stop: 07/08/17 08:59 Last Admin: 05/14/17 12:26 Dose: 1 drop Benztropine Mesylate (Cogentin) 1 mg PO BID [facility] Stop: 07/08/17 08:59 Last Admin: 05/14/17 08:08 Dose: 1 mg Ferrous Sulfate (Iron) 325 mg PO DAILY [facility] Stop: 07/08/17 08:59 Last Admin: 05/14/17 08:08 Dose: 325 mg Hydromorphone HCl (Dilaudid) 1 mg IVP Q4HR PRN PRN Reason: Pain (Moderate) Stop: 07/07/17 22:22 Last Admin: 05/14/17 12:18 Dose: 1 mg Dextrose/Sodium Chloride (D5-0.45ns) 1,000 mls @ 75 mls/hr IV .[id number] [facility] Stop: 07/07/17 22:23 Last Admin: 05/13/17 19:15 Dose: 75 mls/hr Lactulose (Cephulac) 60 gm PO QID [facility] Stop: 07/08/17 08:59 Last Admin: 05/14/17 12:18 Dose: Not Given Levofloxacin (Levaquin) 500 mg PO DAILY [facility] Stop: 07/12/17 08:59 Last Admin: 05/14/17 08:09 Dose: 500 mg Lisinopril (Zestril) 20 mg PO DAILY [facility] Stop: 07/08/17 08:59 Last Admin: 05/14/17 08:08 Dose: 20 mg Lorazepam (Ativan) 1 mg PO Q6H PRN; Protocol PRN Reason: Anxiety Stop: 07/08/17 07:13 Multivitamins/Vitamin C (Theragran) 1 tab PO DAILY [facility] Stop: 07/08/17 08:59 Last Admin: 05/14/17 08:09 Dose: 1 tab Ondansetron HCl (Zofran) 4 mg IV Q6H PRN PRN Reason: Nausea / Vomiting Stop: 07/07/17 22:22 Pantoprazole Sodium (Protonix) 40 mg PO DAILY [facility] Stop: 07/08/17 08:59 Last Admin: 05/14/17 08:09 Dose: 40 mg Quetiapine Fumarate (Seroquel) 50 mg PO HS [facility] PRN Reason: Protocol Stop: 07/08/17 20:59 Last Admin: 05/13/17 20:22 Dose: 50 mg Sodium Chloride (Nacl Tab) 2 gm PO DAILY [facility] Stop: 07/08/17 08:59 Last Admin: 05/14/17 08:08 Dose: 2 gm Zolpidem Tartrate (Ambien) 5 mg PO HS PRN PRN Reason: Insomnia Stop: 07/08/17 07:13 Last Admin: 05/10/17 01:41 Dose: 5 mg General: No acute distress HEENT: Atraumatic Cardiovascular: Regular rate, Normal S1 Lungs: Clear to auscultation Assessment/Plan - Problem List Patient Problems: All Active Problems Acute exacerbation of chronic obstructive pulmonary disease (COPD) (Acute) J44.1 H/O chronic hepatitis (Acute) Z87.19 HYPONATREMIA WITH LOW BACK PAIN (Acute) Hepatic encephalopathy (Acute) K72.90 Pneumonia, organism unspecified (Acute) J18.9 S/P FALLL...POSS. HIP FX (Acute) - Assessment Assessment: * Hepatitis c cirrhosis * splenomegaly * Thrombocytopenia, no transfusion needed * Chronic leukopenia * US no liver lesions * high AFP needs monitoring * No evidence of iron deficiency
[2017-05-14] MEDS: D5-0.45NS 1,000 ML IV SCH (16:22)
[2017-05-15] MEDS: HYDROmorphone 1 mg/mL 1mL Syr IVP PRN ×3 (05:16→14:03)
[2017-05-15 06:02] LABS: HEMATOCRIT 30.5 % (41.0-60); HEMOGLOBIN 10.3 gm/dL (12-16); MEAN CELL VOLUME 93.6 fl (80-99); MEAN CORPUSCULAR HEMOGLOBIN 31.6 pg (27.0-31.0); MEAN CORPUSCULAR HGB CONC 33.8 pg (28.0-36.0); MEAN PLATELET VOLUME 8.2 fl; PLATELET COUNT 37 Th/cmm (150-400); RED BLOOD COUNT 3.26 Mil/cmm (3.80-5.80); RED CELL DISTRIBUTION WIDTH 13.8 % (11.5-20.0)
[2017-05-15 06:14] LABS: WHITE BLOOD COUNT 2.8 Th/cmm (4.8-10.8)
[2017-05-15 06:23] LABS: ANION GAP 8.8 (7.0-16.0); BUN - UREA NITROGEN 6 mg/dL (7-25); BUN/CREATININE RATIO 7.5; CALCIUM SERUM 8.4 mg/dL (8.6-10.3); CARBON DIOXIDE 22.5 mEq/L (21.0-31.0); CHLORIDE 108 mEq/L (98-107); CREATININE - SERUM 0.8 mg/dL (0.7-1.3); GLUCOSE 131 mg/dL (70-105); POTASSIUM SERUM 3.3 mEq/L (3.5-5.1); SODIUM SERUM 136 mEq/L (136-145)
[2017-05-15 07:05] LABS: EOSINOPHIL 8 % (0-5); NEUTROPHILS 57 % (40-80); PLATELET ESTIMATE DECREASED PLATELETS (NORMAL); TOTAL CELLS COUNTED 100
[2017-05-15] MEDS ORDERED: Potassium Chloride 20 mEq ER Tab PO ONE (08:23)
[2017-05-15] MEDS: Benztropine 1 MG TAB PO SCH ×2 (09:40→17:21)
[2017-05-15] MEDS: Multivitamin Tab PO SCH (09:40)
[2017-05-15] MEDS: Ferrous Sulfate 325 MG TAB PO SCH (09:41)
[2017-05-15] MEDS: Pantoprazole 40 mg EC Tab PO SCH (09:41)
[2017-05-15] MEDS: Polyvinyl Alcohol Ophth Soln 15 mL Bottle EACH EYE SCH ×2 (09:41→12:54)
[2017-05-15] MEDS: Lactulose 10 Gm/15 mL 30mL UDC PO SCH ×2 (09:46→12:54)
--- NOTE | 2017-05-15 10:10 | General Progress Note ---
Subjective - Review of Systems Service Date: 05/15/17 Events since last encounter: recurrent pain Subjective: feels imbalance when walking Objective - Results Result Diagrams: 05/15/17 05:33 05/15/17 05:33 Recent Labs: Laboratory Last Values WBC 2.8 Th/cmm (4.8-10.8) L D 05/15/17 05:33 RBC 3.26 Mil/cmm (3.80-5.80) L 05/15/17 05:33 Hgb 10.3 gm/dL (12-16) L 05/15/17 05:33 Hct 30.5 % (41.0-60) L 05/15/17 05:33 MCV 93.6 fl (80-99) 05/15/17 05:33 MCH 31.6 pg (27.0-31.0) H 05/15/17 05:33 MCHC Differential 33.8 pg (28.0-36.0) 05/15/17 05:33 RDW 13.8 % (11.5-20.0) 05/15/17 05:33 Plt Count 37 Th/cmm (150-400) L 05/15/17 05:33 MPV 8.2 fl 05/15/17 05:33 Neutrophils % 46.6 % (40.0-80.0) 05/12/17 08:00 Band Neutrophils % 1 % (0-10) 05/14/17 05:52 Lymphocytes % 32.4 % (20.0-50.0) 05/12/17 08:00 Monocytes % 12.7 % (2.0-10.0) H 05/12/17 08:00 Eosinophils % 8.0 % (0.0-5.0) H 05/12/17 08:00 Basophils % 0.3 % (0.0-2.0) 05/12/17 08:00 Neutrophils (Manual) 57 % (40-80) 05/15/17 05:33 Lymphocytes 32 % (20-50) 05/15/17 05:33 Monocytes 3 % (2-10) 05/15/17 05:33 Eosinophils 8 % (0-5) H 05/15/17 05:33 Basophils 2 % (0-3) 05/14/17 05:52 Platelet Estimate DECREASED PLATELETS (NORMAL) 05/15/17 05:33 Platelet Morphology NORMAL (NORMAL) 05/08/17 17:01 Anisocytosis 2+ 05/14/17 05:52 PT 12.9 SECONDS (9.5-11.5) H 05/08/17 17:01 INR 1.23 (0.5-1.4) 05/08/17 17:01 Sodium 136 mEq/L (136-145) 05/15/17 05:33 Potassium 3.3 mEq/L (3.5-5.1) L 05/15/17 05:33 Chloride 108 mEq/L (98-107) H 05/15/17 05:33 Carbon Dioxide 22.5 mEq/L (21.0-31.0) 05/15/17 05:33 Anion Gap 8.8 (7.0-16.0) 05/15/17 05:33 BUN 6 mg/dL (7-25) L 05/15/17 05:33 Creatinine 0.8 mg/dL (0.7-1.3) 05/15/17 05:33 Est GFR ( Amer) > 60.0 ml/min (>90) 05/15/17 05:33 Est GFR (Non-Af Amer) > 60.0 ml/min 05/15/17 05:33 BUN/Creatinine Ratio 7.5 05/15/17 05:33 Glucose 131 mg/dL (70-105) H 05/15/17 05:33 Whole Bld Lactic Acid 1.82 mmol/L (0.60-1.99) 05/08/17 17:01 Calcium 8.4 mg/dL (8.6-10.3) L 05/15/17 05:33 Iron 114 ug/dL (38-169) 05/09/17 04:45 TIBC 199 ug/dL (250-450) L 05/09/17 04:45 Iron Saturation 57 % (15-55) H 05/09/17 04:45 Unsaturated IBC 85 ug/dL (111-343) L 05/09/17 04:45 Ferritin 393 ng/mL (30-400) 05/09/17 04:45 Total Bilirubin 1.3 mg/dL (0.3-1.0) H 05/14/17 05:52 AST 59 U/L (13-39) H 05/14/17 05:52 ALT 33 U/L (7-52) 05/14/17 05:52 Alkaline Phosphatase 101 U/L (34-104) 05/14/17 05:52 Ammonia 54 umol/L (16-53) H 05/14/17 05:52 Creatine Kinase 55 U/L (30-223) 05/08/17 17:01 Troponin I 0.01 ng/mL (0.01-0.05) 05/08/17 17:01 B-Natriuretic Peptide 8.2 pg/mL (5.0-100.0) 05/08/17 17:01 Total Protein 6.1 gm/dL (6.0-8.3) 05/14/17 05:52 Albumin 2.9 gm/dL (4.2-5.5) L 05/14/17 05:52 Globulin 3.2 gm/dL 05/14/17 05:52 Albumin/Globulin Ratio 0.9 (1.0-1.8) L 05/14/17 05:52 Triglycerides 108 mg/dL (<150) 05/08/17 17:01 Cholesterol 68 mg/dL (<200) 05/08/17 17:01 LDL Cholesterol Direct 29 mg/dL (75-193) L 05/08/17 17:01 HDL Cholesterol 20 mg/dL (23-92) L 05/08/17 17:01 Tumor Marker AFP 89.0 ng/mL (0.0-8.3) H 05/09/17 04:45 Vancomycin Trough 21.6 ug/mL (10-20) H 05/12/17 08:00 - Physical Exam Vitals and I&O: Vital Signs Temp 97.2 F 05/15/17 08:03 Pulse 72 05/15/17 09:40 Resp 18 05/15/17 08:03 BP 160/94 05/15/17 09:40 Pulse Ox 100 05/15/17 08:03 Intake & Output 05/14/17 05/15/17 05/15/17 18:59 06:59 18:59 Intake Total 1000 Balance 1000 Weight (lbs) 108.862 kg Intake: Intake, IV Amount 1000 D5-0.45NS 1,000 ml @ 75 1000 mls/hr IV .[id number] [facility] Rx #:[id number] Other: # Voids 4 # Bowel Movements 1 Stool Characteristics Liquid Active Medications: Current Medications Acetaminophen/Hydrocodone Bitart ([place] 5mg/325mg) 1 tab PO Q8H PRN PRN Reason: Pain (Severe) Stop: 07/08/17 07:13 Last Admin: 05/14/17 13:59 Dose: 1 tab Amitriptyline HCl (Elavil) 25 mg PO HS [facility] PRN Reason: Protocol Stop: 07/08/17 20:59 Last Admin: 05/14/17 20:27 Dose: 25 mg Artificial Tears (Artificial Tears Ophth Soln) 1 drop EACH EYE QID [facility] Stop: 07/08/17 08:59 Last Admin: 05/15/17 09:41 Dose: 1 drop Benztropine Mesylate (Cogentin) 1 mg PO BID [facility] Stop: 07/08/17 08:59 Last Admin: 05/15/17 09:40 Dose: 1 mg Ferrous Sulfate (Iron) 325 mg PO DAILY [facility] Stop: 07/08/17 08:59 Last Admin: 05/15/17 09:41 Dose: 325 mg Hydromorphone HCl (Dilaudid) 1 mg IVP Q4HR PRN PRN Reason: Pain (Moderate) Stop: 07/07/17 22:22 Last Admin: 05/15/17 09:58 Dose: 1 mg Dextrose/Sodium Chloride (D5-0.45ns) 1,000 mls @ 75 mls/hr IV .[id number] [facility] Stop: 07/07/17 22:23 Last Admin: 05/14/17 16:22 Dose: 75 mls/hr Lactulose (Cephulac) 60 gm PO QID [facility] Stop: 07/08/17 08:59 Last Admin: 05/15/17 09:46 Dose: Not Given Levofloxacin (Levaquin) 500 mg PO DAILY [facility] Stop: 07/12/17 08:59 Last Admin: 05/15/17 09:40 Dose: 500 mg Lisinopril (Zestril) 20 mg PO DAILY [facility] Stop: 07/08/17 08:59 Last Admin: 05/15/17 09:40 Dose: 20 mg Lorazepam (Ativan) 1 mg PO Q6H PRN; Protocol PRN Reason: Anxiety Stop: 07/08/17 07:13 Multivitamins/Vitamin C (Theragran) 1 tab PO DAILY [facility] Stop: 07/08/17 08:59 Last Admin: 05/15/17 09:40 Dose: 1 tab Ondansetron HCl (Zofran) 4 mg IV Q6H PRN PRN Reason: Nausea / Vomiting Stop: 07/07/17 22:22 Pantoprazole Sodium (Protonix) 40 mg PO DAILY [facility] Stop: 07/08/17 08:59 Last Admin: 05/15/17 09:41 Dose: 40 mg Quetiapine Fumarate (Seroquel) 50 mg PO HS [facility] PRN Reason: Protocol Stop: 07/08/17 20:59 Last Admin: 05/14/17 20:27 Dose: 50 mg Sodium Chloride (Nacl Tab) 2 gm PO DAILY [facility] Stop: 07/08/17 08:59 Last Admin: 05/15/17 09:40 Dose: 2 gm Zolpidem Tartrate (Ambien) 5 mg PO HS PRN PRN Reason: Insomnia Stop: 07/08/17 07:13 Last Admin: 05/14/17 21:09 Dose: 5 mg General: No acute distress HEENT: Atraumatic Neck: Supple Cardiovascular: Regular rate, Normal S1 Lungs: Clear to auscultation Assessment/Plan - Problem List Patient Problems: All Active Problems Acute exacerbation of chronic obstructive pulmonary disease (COPD) (Acute) J44.1 H/O chronic hepatitis (Acute) Z87.19 HYPONATREMIA WITH LOW BACK PAIN (Acute) Hepatic encephalopathy (Acute) K72.90 Pneumonia, organism unspecified (Acute) J18.9 S/P FALLL...POSS. HIP FX (Acute) - Assessment Assessment: * Hepatitis c cirrhosis * splenomegaly * Thrombocytopenia, no transfusion needed * Chronic leukopenia * US no liver lesions * high AFP needs monitoring * No evidence of iron deficiency lab reviewed , cbc stable , no transfusion needed
[2017-05-15] MEDS: D5-0.45NS 1,000 ML IV SCH (12:56)
[2017-05-15] MEDS: Hydrocodone/APAP 5mg/325mg Tab PO PRN (17:21)
--- NOTE | 2017-05-17 16:41 | Discharge Summary ---
DATE OF DISCHARGE: 05/15/2017 HOSPITAL COURSE: The patient is very well known to me. The patient was admitted because of very low white count as well as possible infection. The patient has history of hypertension, CVA, TIA, peptic ulcer disease, GERD, arthritis, dementia. The patient was admitted and treated. Had hematology as well as GI and infectious disease doctor saw the patient. The patient felt better. The patient was in stable condition and on 05/15/2017, he was discharged back to [facility] where I will be following the patient with antibiotics. MEDICATIONS: See the reconciliation sheet. ACTIVITY: As tolerated. JOB# [id number]
== END 2017-05-15 17:26 | disposition home or self-care (01) | DRG 432 ==
LOC: ER 16:22 → TELE 18:42 → MSI 22:00
PROVIDERS: ADMIT Internal Medicine; ATTEND Internal Medicine
DX: K74.60 Unspecified cirrhosis of liver (principal); J18.9 Pneumonia, unspecified organism; D61.818 Other pancytopenia; E83.51 Hypocalcemia; E44.1 Mild protein-calorie malnutrition; D73.2 Chronic congestive splenomegaly; E87.1 Hypo-osmolality and hyponatremia; K81.1 Chronic cholecystitis; F03.90 Unspecified dementia, unspecified severity, without behavioral disturbance, psychotic disturbance, mood disturbance, and anxiety; J44.9 Chronic obstructive pulmonary disease, unspecified; I10 Essential (primary) hypertension; E78.5 Hyperlipidemia, unspecified; K27.9 Peptic ulcer, site unspecified, unspecified as acute or chronic, without hemorrhage or perforation; K21.9 Gastro-esophageal reflux disease without esophagitis; M19.90 Unspecified osteoarthritis, unspecified site; I25.10 Atherosclerotic heart disease of native coronary artery without angina pectoris; F31.9 Bipolar disorder, unspecified; W18.30XA Fall on same level, unspecified, initial encounter; Y93.89 Activity, other specified; Y92.89 Other specified places as the place of occurrence of the external cause; Y99.8 Other external cause status; N28.9 Disorder of kidney and ureter, unspecified; B18.2 Chronic viral hepatitis C; D73.1 Hypersplenism; F20.9 Schizophrenia, unspecified; Z86.73 Personal history of transient ischemic attack (TIA), and cerebral infarction without residual deficits; Z83.3 Family history of diabetes mellitus; Z82.49 Family history of ischemic heart disease and other diseases of the circulatory system
CPT/HCPCS: 36415-UA; 71010-TC; 73521; 76700-TC; 80048-TC; 80053-TC; 80061-TC; 80202-TC; 82105-90; 82140-TC; 82550-TC; 82728-90; 83540-90; 83550-90; 83605; 83880-TC; 84484-TC; 85007-TC; 85025-TC; 85027-TC; 85610-TC; 87086-90; 93005; 94760; J1170; J1956; J3370; J7040; Z7610

== ENCOUNTER 2017-06-20 16:53 | Inpatient (IN) | payer MEDICARE, MEDICAID ==
--- NOTE | 2017-06-20 17:05 | ED Physician Chart ---
ED Chief Complaint/HPI - Patient Information Date Seen:: 06/20/17 Time Seen:: 16:55 Chief Complaint:: Hip Pain History of Present Illness:: onset x one day of hip pain; pt denies trauma, H/As, neck pain, C/P, SOB, Abd. Pain, A/N/V/D/c, fever, chills, or urinary s/s Allergies:: Allergies Allergy/AdvReac Type Severity Reaction Status Date / Time No Known Allergies Allergy Verified 05/08/17 16:34 Historian:: Patient, EMS Review:: Nurse's Note Reviewed, EMS run form Reviewed ED Review of Systems - Review of Systems General/Constitutional: No fever, No chills, No weight loss, No weakness, No diaphoresis, No edema, No loss of appetite Skin: No skin lesions, No rash, No bruising Head: No headache, No light-headedness Eyes: No loss of vision, No pain, No diplopia ENT: No earache, No nasal drainage, No sore throat, No tinnitus Neck: No neck pain, No swelling, No thyromegaly, No stiffness, No mass noted Cardio Vascular: No chest pain, No palpitations, No PND, No orthopnea, No edema Pulmonary: SOB, Cough, No sputum, Wheezing GI: No nausea, No vomiting, No diarrhea, No pain, No melena, No hematochezia, No constipation, No hematemesis G/U: No dysuria, No frequency, No hematuria Musculoskeletal: No bone or joint pain, No back pain, No muscle pain Endocrine: Polyuria, Polydipsia Psychiatric: No prior psych history, No depression, No anxiety, No suicidal ideation, No homicidal ideation, No auditory hallucination, No visual hallucination Hematopoietic: No bruising, No lymphadenopathy Allergic/Immuno: No urticaria, No angioedema Neurological: No syncope, No focal symptoms, No weakness, No paresthesia, No headache, No seizure, No dizziness, No confusion, No vertigo ED Past Medical History - Past Medical History Obtainable: Yes Past Medical History: HTN, DM, Asthma/COPD, Dyslipidemia, PUD/GERD, Dementia Family History: Diabetes Melitus, HTN Social History: Non Smoker, No Alcohol, No Drug Use, Single, Care Facility Surgical History: None Psychiatricy History: Depression, Schizophrenia, Bipolar, Dementia Medication: Reviewed Family Medical History - Family Member Mother History Unknown: Yes Ethnicity: Unknown Living Status: Unknown Hx Family Cancer: No Hx Family Coronary Artery Disease: No Hx Family Congestive Heart Failure: No Hx Family Hypertension: No Hx Family Stroke: No Hx Family Diabetes: No Hx Family Seizures: No Hx Family Dementia: No Hx Family AIDS: No Hx Family HIV: No Hx Family COPD: No Hx Family Hepatitis: No Hx Family Psychiatric Problems: No Hx Family Tuberculosis: No unknown History Unknown: Yes Ethnicity: Non- Living Status: Hx Family Cancer: No Hx Family Coronary Artery Disease: No Hx Family Congestive Heart Failure: No Hx Family Hypertension: Yes Hx Family Stroke: No Hx Family Diabetes: No Hx Family Seizures: No Hx Family Dementia: No Hx Family AIDS: No Hx Family HIV: No Hx Family COPD: No Hx Family Hepatitis: No Hx Family Psychiatric Problems: No Hx Family Tuberculosis: No Father History Unknown: Yes Ethnicity: Unknown Living Status: Unknown Hx Family Cancer: No Hx Family Coronary Artery Disease: No Hx Family Congestive Heart Failure: No Hx Family Hypertension: No Hx Family Stroke: No Hx Family Diabetes: No Hx Family Seizures: No Hx Family Dementia: No Hx Family AIDS: No Hx Family HIV: No Hx Family COPD: No Hx Family Hepatitis: No Hx Family Psychiatric Problems: No Hx Family Tuberculosis: No Sister History Unknown: Yes Ethnicity: Living Status: ED Physical Exam - Physical Examination General/Constitutional: Awake, Well-developed, well-nourished, Alert, No distress, GCS 15, Non-toxic appearing, Ambulatory Head: Atraumatic Eyes: Lids, conjuctiva normal, PERRL, EOMI Skin: Nl inspection, No rash, No skin lesions, No ecchymosis, Well hydrated, No lymphadenopathy ENMT: External ears, nose nl, TM canals nl, Nasal exam nl, Lips, teeth, gums nl , Oropharynx nl, Tonsils nl Neck: Nontender, Full ROM w/o pain, No JVD, No nuchal rigidity, No bruit, No mass, No stridor Respiratory: Nl effort/Exclusion, Clear to Auscultation, No Wheeze/Rhonchi/Rales Cardio Vascular: RRR, No murmur, gallop, rubs, NL S1 S2, Carotid/Femoral/Distal pulses equal bilaterally GI: No tenderness/rebounding/guarding, No organomegaly, No hernia, Normal BS's, Nondistended, No mass/bruits, No McBurney tenderness : No CVA tenderness Extremities: No tenderness or effusion, Full ROM, normal strength in all extremities, No edema, Normal digits & nails Neuro/Psych: Alert/oriented, DTR's symmetric, Normal sensory exam, Normal motor strength, Judgement/insight normal, Mood normal, Normal gait, No focal deficits Misc: Normal back, No paraspinal tenderness ED Labs/Radiology/EKG Results - Lab Results Comments:: WBC: 3.7; Lactic Acid: 2.54; Na+: 131; Platelets: 45,000 ED Septic Shock - . Is Septic Shock (SBP<90, OR Lactate>4 mmol\L) present?: No ED Reassessment (Disposition) - Reassessment Reassessment Condition:: Improved - Diagnosis Diagnosis:: Leukopenia; Sepsis; Thrombocytopenia; Hip Pain - Aftercare/Follow up Instructions Aftercare/Follow-Up Instructions:: Counseled pt regarding lab results/diagnosis & need follow up, Counseled pt & family regarding lab results/diagnosis & need follow up - Patient Disposition Discharge/Transfer:: Acute Care w/in this hosp Accepting Physician:: Dr. Nair Time Called:: 1814 Time Responded:: 18:15 Admitted to:: Telemetry Spoke to:: Dr. Nair Admitting Medical Physician:: Dr. Nair Condition at Disposition:: Stable, Improved
[2017-06-20 17:40] LABS: % BASOPHILS 2.9 % (0.0-2.0); % EOSINOPHILS 5.7 % (0.0-5.0); % LYMPHOCYTES 30.5 % (20.0-50.0); % MONOCYTES 4.9 % (2.0-10.0); BASOPHILE ABSOLUTE 0.1 Th/cumm (0-0.2); EOSINOPHILE ABSOLUTE 0.2 Th/cmm (0.1-0.4); HEMOGLOBIN 12.2 gm/dL (12-16); LYMPHOCYTE ABSOLUTE 1.1 Th/cmm (1.5-3.0); MEAN CELL VOLUME 95.3 fl (80-99); MEAN CORPUSCULAR HEMOGLOBIN 31.5 pg (27.0-31.0); MEAN CORPUSCULAR HGB CONC 33.1 pg (28.0-36.0); MONOCYTE ABSOLUTE 0.2 Th/cmm (0.3-1.0); NEUTROPHILE ABSOLUTE 2.1 Th/cmm (1.8-8.0); RED BLOOD COUNT 3.87 Mil/cmm (3.80-5.80)
[2017-06-20 17:43] LABS: HEMATOCRIT 36.9 % (41.0-60); WHITE BLOOD COUNT 3.7 Th/cmm (4.8-10.8)
[2017-06-20 17:44] LABS: PLATELET COUNT 45 Th/cmm (150-400)
[2017-06-20 17:57] LABS: ALB/GLOB RATIO 0.9 (1.0-1.8); ALBUMIN 3.3 gm/dL (4.2-5.5); ALKALINE PHOSPHATASE 114 U/L (34-104); ANION GAP 9.6 (7.0-16.0); BILIRUBIN,TOTAL 0.9 mg/dL (0.3-1.0); BUN - UREA NITROGEN 5 mg/dL (7-25); CALCIUM SERUM 9.1 mg/dL (8.6-10.3); CARBON DIOXIDE 24.2 mEq/L (21.0-31.0); CHLORIDE 101 mEq/L (98-107); CHOLESTEROL 70 mg/dL (<200); CREATININE - SERUM 0.6 mg/dL (0.7-1.3); CREATININE KINASE 53 U/L (30-223); GFR AFRICAN-AMERICAN > 60.0 ml/min (>90); GFR NON AFRICAN-AMERICAN > 60.0 ml/min; GLUCOSE 118 mg/dL (70-105); HDL -HIGH DENSITY LIPOPROTEIN 26 mg/dL (23-92); POTASSIUM SERUM 3.8 mEq/L (3.5-5.1); SGOT 100 U/L (13-39); SGPT/ALT 48 U/L (7-52); SODIUM SERUM 131 mEq/L (136-145); TOTAL PROTEIN,SERUM 6.9 gm/dL (6.0-8.3); TRIGLYCERIDES 122 mg/dL (<150)
[2017-06-20 18:53] LABS: INR 1.19 (0.5-1.4); PROTHROMBIN TIME (TEST) 12.5 SECONDS (9.5-11.5)
[2017-06-20 19:37] LABS: ALBUMIN 3.2 gm/dL (4.2-5.5); BILIRUBIN,DIRECT 0.35 mg/dL (0.0-0.2); BILIRUBIN,TOTAL 0.8 mg/dL (0.3-1.0); TOTAL PROTEIN,SERUM 6.5 gm/dL (6.0-8.3)
[2017-06-20] MEDS ORDERED: Morphine Sulfate 2 mg/mL 1mL Syr IV STA (21:26)
[2017-06-20] MEDS ORDERED: Morphine Sulfate 2 mg/mL 1mL Syr ONE (21:39)
[2017-06-21 00:35] VITALS: BP 128/89
[2017-06-21] MEDS: HYDROmorphone 1 mg/mL 1mL Syr IVP PRN ×4 (00:38→17:30)
[2017-06-21 06:09] LABS: % EOSINOPHILS 8.3 % (0.0-5.0); % LYMPHOCYTES 40.9 % (20.0-50.0); % NEUTROPHILS 39.8 % (40.0-80.0); EOSINOPHILE ABSOLUTE 0.3 Th/cmm (0.1-0.4); HEMATOCRIT 34.3 % (41.0-60); HEMOGLOBIN 11.8 gm/dL (12-16); LYMPHOCYTE ABSOLUTE 1.5 Th/cmm (1.5-3.0); MEAN CELL VOLUME 94.5 fl (80-99); MEAN CORPUSCULAR HEMOGLOBIN 32.6 pg (27.0-31.0); MEAN CORPUSCULAR HGB CONC 34.5 pg (28.0-36.0); MONOCYTE ABSOLUTE 0.4 Th/cmm (0.3-1.0); NEUTROPHILE ABSOLUTE 1.5 Th/cmm (1.8-8.0); RED BLOOD COUNT 3.63 Mil/cmm (3.80-5.80); RED CELL DISTRIBUTION WIDTH 14.7 % (11.5-20.0)
[2017-06-21 06:37] LABS: ANION GAP 9.7 (7.0-16.0); BUN - UREA NITROGEN 5 mg/dL (7-25); CALCIUM SERUM 8.7 mg/dL (8.6-10.3); CARBON DIOXIDE 25.2 mEq/L (21.0-31.0); CHLORIDE 105 mEq/L (98-107); CREATININE - SERUM 0.6 mg/dL (0.7-1.3); GFR AFRICAN-AMERICAN > 60.0 ml/min (>90); GFR NON AFRICAN-AMERICAN > 60.0 ml/min; GLUCOSE 123 mg/dL (70-105); POTASSIUM SERUM 3.9 mEq/L (3.5-5.1); SODIUM SERUM 136 mEq/L (136-145)
[2017-06-21 06:47] LABS: WHITE BLOOD COUNT 3.7 Th/cmm (4.8-10.8)
--- NOTE | 2017-06-21 07:49 | Diagnostic Imaging Report ---
Portable chest x-ray History: Pain Allowing for portable technique the heart size is normal. No focal pulmonary parenchymal processes. No hilar or mediastinal abnormalities. Impression: No acute abnormalities.
--- NOTE | 2017-06-21 07:53 | Diagnostic Imaging Report ---
Bilateral hips with pelvis (2 views) HISTORY: Pain The exam is compared with a prior study of May 31, 2017. Compared with the prior exam, surgical changes noted about the left greater trochanter. Slight increase in bony reaction about the surgical site. No acute abnormalities. Degenerative changes noted in the lower lumbar spine. IMPRESSION: 1. 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
[2017-06-21] MEDS: Lactulose 10 Gm/15 mL 30mL UDC PO SCH ×4 (08:05→20:38)
[2017-06-21] MEDS: HYDROmorphone 2 mg/mL 1mL Vial IVP PRN ×2 (12:29→20:39)
--- NOTE | 2017-06-21 15:46 | History & Physical ---
ADMIT DATE: 06/20/2017 The patient is very well known to me, was admitted because of history of a fall, left hip pain, and also the patient is altered and the patient has hepatic encephalopathy. HISTORY OF PRESENT ILLNESS: The patient is complaining of hip pain. The patient is complaining of rashes in his left lower leg. The patient complains of shortness of breath, complains of pain to his left hip. The patient is known to have a history of thrombocytopenia, history of bipolar disorder, history of peptic ulcer disease, history of GI bleeding in the past. REVIEW OF SYSTEMS: No fever, no chills, no headaches, no other problems. PAST MEDICAL HISTORY: History of hypertension, diabetes, asthma, hyperlipidemia, peptic ulcer disease, and dementia. PHYSICAL EXAMINATION: GENERAL: The patient is alert, awake, complaining of pain to the left hip, and also complaining of rashes and itches ____ the thighs. ENT: Normal. NECK: Supple. Nontender. LUNGS: Clear. CARDIOVASCULAR SYSTEM: S1, S2 heard. ABDOMEN: Soft. EXTREMITIES: The patient has rashes over left both knees and tenderness to the left hip area. Range of motion is slightly limited. LABORATORY DATA: The patient's lactic acid is 2.54. WBC count 3.7. Sodium 131. Platelet is 45,000. DIAGNOSES: Hepatic encephalopathy, rule out sepsis, leukopenia, thrombocytopenia, history of fall, left hip pain, rule out fracture, history of peptic ulcer disease, history of hypertension, history of asthma, history of chronic obstructive pulmonary disease, history of hyperlipidemia, history of dementia, history of bipolar disorder. PLAN: I am going to go ahead and give him lactulose. GI doctor will see the patient and also we will have Dr. Chand see the patient for ID. I will follow the patient. JOB# [id number]
[2017-06-21] MEDS ORDERED: Hydrocodone/APAP 5mg/325mg Tab PO PRN (16:52)
[2017-06-21] MEDS ORDERED: GLUCAGON HCl 1 MG KIT SUBQ PRN (16:52)
[2017-06-21] MEDS ORDERED: Maalox 30 mL Cup PO PRN (16:52)
[2017-06-21] MEDS: Benztropine 1 MG TAB PO SCH (17:30)
[2017-06-21] MEDS: Polyvinyl Alcohol Ophth Soln 15 mL Bottle EACH EYE SCH ×2 (17:36→21:00)
[2017-06-21] MEDS ORDERED: NUTRITIONAL SUPPLEMENT 113 GM PO SCH (21:00)
--- NOTE | 2017-06-21 22:06 | Consultation ---
DATE OF CONSULTATION: 06/21/2017 REASON FOR CONSULTATION: Hepatic encephalopathy. This consult was obtained through the courtesy of Dr. Nair for this 66-year-old with history of alcohol abuse, hepatitis C, cirrhosis of the liver, admitted to the hospital for altered mentation. Apparently, the patient was seen couple of weeks for endoscopy and colonoscopy, at that time we started on the lactulose. He was complaining of diarrhea following that. The patient denies any GI bleed. He has lost significant amount of weight, but cannot quantify it. PAST MEDICAL HISTORY: Cirrhosis and alcoholic liver disease. PAST SURGICAL HISTORY: The patient had hip surgery. SOCIAL HISTORY: He smokes 7 cigarettes a day, ex-alcoholic, and IV drug abuser. FAMILY HISTORY: Noncontributory. ALLERGIES: No known drug allergies. MEDICATIONS: The patient is on Lotrisone cream, Dilaudid, lactulose, Zofran. PHYSICAL EXAMINATION: GENERAL: The patient is awake, oriented to self and place, in no acute distress. VITAL SIGNS: Blood pressure is 140/81, heart rate 89, respiratory rate 20, temperature 98.4. HEAD AND NECK: Pupils reactive to light. Extraocular muscles intact. Sclerae are anicteric. Conjunctivae not pale. Oral cavity, no lesion. NECK: Supple, no jugular venous distention. No carotid bruits or lymph node. CHEST: Good respiratory movements. LUNGS: Clear to auscultation. CARDIOVASCULAR: Regular rate and rhythm. No murmur or gallop. ABDOMEN: Soft, distended. Positive bowel sounds. EXTREMITIES: Lower extremities, trace edema. CENTRAL NERVOUS SYSTEM: Nonfocal. LABORATORY DATA: White count 3.7, H and H of 11.8 and 34.3 with platelets of 45 yesterday. Bilirubin is 0.8, AST 101, ALT 48, alkaline phosphates 111. Albumin is 3.2. ASSESSMENT AND PLAN: 1. Hepatic encephalopathy. We will continue with lactulose. We will add Xifaxan and monitor labs. 2. Cirrhosis of the liver. He should have alpha fetoprotein and ultrasound every 6 months. 3. History of hepatitis C. This can be followed as an outpatient. Thank for, Dr. Nair for allowing me to participate in the care of this patient. If you have any further questions, please let me know. JOB# [id number]
[2017-06-22] MEDS: HYDROmorphone 2 mg/mL 1mL Vial IVP PRN ×6 (01:58→21:49)
[2017-06-22] MEDS ORDERED: Non-Formulary Item 1 EA (Amino Acids/Protein Hydrolys [Pro-Stat Sugar Free Liquid] 30 ML) PO SCH (09:00)
[2017-06-22] MEDS: Betamethasone/Clotrimazole Cream 15 gm Tube TP SCH ×2 (09:00→19:08)
[2017-06-22] MEDS: Multivitamin Tab PO SCH (09:11)
[2017-06-22] MEDS: Pantoprazole 40 mg EC Tab PO SCH (09:11)
[2017-06-22] MEDS: Benztropine 1 MG TAB PO SCH ×2 (09:12→18:07)
[2017-06-22] MEDS: Lactulose 10 Gm/15 mL 30mL UDC PO SCH ×4 (09:12→21:49)
[2017-06-22] MEDS: Ferrous Sulfate 325 MG TAB PO SCH (09:12)
--- NOTE | 2017-06-22 09:12 | Consultation ---
Consult Note - Consult Note Service Date: 06/22/17 Referring Physician: Lisette Nair Consult Note: PHYSICIAN Consultation Note: dictated,
[2017-06-22] MEDS ORDERED: Vancomycin HCl 1.5 GM in Sodium Chloride 0.9% 500 ML IV SCH (12:00)
--- NOTE | 2017-06-22 13:14 | Consultation ---
DATE OF CONSULTATION: 06/22/2017 REFERRING PHYSICIAN: Dr. Nair. REASON FOR CONSULTATION: Rash on all over the body, mainly on the abdomen and thigh area bilaterally. HISTORY OF PRESENT ILLNESS: The patient is a 66-year-old male with a past medical history of hypertension, diabetes mellitus type 2, asthma, hyperlipidemia, peptic ulcer disease, and dementia, presented to the ER with left hip pain. The patient has also developed rash all over the body, mainly on lower abdomen and upper thigh, it is itchy. The patient denies any cough or shortness of breath at this time. On initial evaluation, the patient was afebrile and WBC count was 3700. Infectious Disease consultation was called for the patient's rash. PAST MEDICAL HISTORY: Includes hypertension, CKD, COPD, asthma, osteoarthritis, left hip pain with history of ORIF, chronic hepatitis C, cirrhosis, and pancytopenia due to cirrhosis. History of left hip ORIF and history of infection with MRSA, which was treated with antibiotic, vancomycin in the past. ALLERGIES: NKDA. MEDICATIONS: As per medication reconciliation sheet. REVIEW OF SYSTEMS: GENERAL: The patient has no fever, no chills. HEENT: No diplopia, no photophobia, no sore throat. RESPIRATORY: No cough. No shortness of breath. CARDIOVASCULAR: No chest pain or palpitation. NEUROLOGIC: No headache, no dizziness, no focal weakness. MUSCULOSKELETAL: The patient complains of left hip pain. GENITOURINARY: No dysuria. No hematuria. GASTROINTESTINAL: No nausea, no vomiting, no diarrhea, no constipation, no abdominal pain. CENTRAL NERVOUS SYSTEM: No headache, no dizziness, no focal weakness. No seizure. SKIN: The patient has multiple erythematous itchy rash in lower abdomen. PHYSICAL EXAMINATION: VITAL SIGNS: Shows temperature is 98.3 degrees Fahrenheit, pulse is 88, respiration is 18, blood pressure 121/69. GENERAL: The patient is comfortable lying in the bed, not in acute distress. HEENT: Head is normocephalic, atraumatic. Oral cavity moist, pink tongue. Eyes: No pallor, no icterus. PERRLA, EOMI. NECK: Supple, no JVD, no carotid bruit. Trachea in midline. CHEST: Bilateral breath sounds, vesicular sounds. No crackles or wheezing. HEART: S1, S2 within normal limit. Regular rhythm. No murmur, no gallop. ABDOMEN: Soft, nontender, nondistended. Bowel sounds present. EXTREMITIES: No cyanosis, no clubbing, no edema. NEUROLOGIC: Alert, awake, oriented x 3. Normal gait. No focal neuro deficit. SKIN: The patient has discrete maculopapular rash with in the lower abdomen and upper thigh with peripheral blanching or reticular pattern. IMPRESSION: 1. Rash, most likely viral versus allergic reaction. Cannot rule out bacterial infection, which includes Staph aureus, MRSA as he has history of M RSA infection. 2. Chronic hepatitis C, the rest may be because of hepatitis C also. 3. Pancytopenia. 4. Left hip ORIF. 5. Hypertension. 6. Bipolar disorder. 7. Asthma, chronic obstructive pulmonary disease. RECOMMENDATIONS: We will get HIV screen, Hep C RNA, HSV PCR, and blood cultures. Antibiotic schwab we will start the patient on vancomycin and acyclovir. Depending on the available reports will define final antibiotic therapy. Thank you Dr. Nair for involving me in taking care of this patient. JOB# [id number] [facility] [place] DIVISIONAshley
[2017-06-22] MEDS: Polyvinyl Alcohol Ophth Soln 15 mL Bottle EACH EYE SCH ×3 (14:03→21:48)
[2017-06-22] MEDS: SODIUM CHLORIDE 0.9% IV SCH ×2 (14:03→21:53)
[2017-06-22] MEDS: ACYCLOVIR SODIUM IV SCH ×2 (14:03→21:53)
--- NOTE | 2017-06-22 16:30 | General Progress Note ---
Subjective - Review of Systems Events since last encounter: patient awake alert in no acute distress Objective - Results Result Diagrams: 06/21/17 05:40 06/21/17 05:40 Recent Labs: Laboratory Last Values WBC 3.7 Th/cmm (4.8-10.8) L 06/21/17 05:40 RBC 3.63 Mil/cmm (3.80-5.80) L 06/21/17 05:40 Hgb 11.8 gm/dL (12-16) L 06/21/17 05:40 Hct 34.3 % (41.0-60) L 06/21/17 05:40 MCV 94.5 fl (80-99) 06/21/17 05:40 MCH 32.6 pg (27.0-31.0) H 06/21/17 05:40 MCHC Differential 34.5 pg (28.0-36.0) 06/21/17 05:40 RDW 14.7 % (11.5-20.0) 06/21/17 05:40 Plt Count Th/cmm (150-400) 06/21/17 05:40 MPV 8.0 fl 06/20/17 17:27 Neutrophils % 39.8 % (40.0-80.0) L 06/21/17 05:40 Lymphocytes % 40.9 % (20.0-50.0) 06/21/17 05:40 Monocytes % 11.0 % (2.0-10.0) H 06/21/17 05:40 Eosinophils % 8.3 % (0.0-5.0) H 06/21/17 05:40 Basophils % 0.0 % (0.0-2.0) 06/21/17 05:40 PT 12.5 SECONDS (9.5-11.5) H 06/20/17 17:27 INR 1.19 (0.5-1.4) 06/20/17 17:27 Sodium 136 mEq/L (136-145) 06/21/17 05:40 Potassium 3.9 mEq/L (3.5-5.1) 06/21/17 05:40 Chloride 105 mEq/L (98-107) 06/21/17 05:40 Carbon Dioxide 25.2 mEq/L (21.0-31.0) 06/21/17 05:40 Anion Gap 9.7 (7.0-16.0) 06/21/17 05:40 BUN 5 mg/dL (7-25) L 06/21/17 05:40 Creatinine 0.6 mg/dL (0.7-1.3) L 06/21/17 05:40 Est GFR ( Amer) > 60.0 ml/min (>90) 06/21/17 05:40 Est GFR (Non-Af Amer) > 60.0 ml/min 06/21/17 05:40 BUN/Creatinine Ratio 8.3 06/21/17 05:40 Glucose 123 mg/dL (70-105) H 06/21/17 05:40 Whole Bld Lactic Acid 1.52 mmol/L (0.60-1.99) 06/20/17 19:55 Calcium 8.7 mg/dL (8.6-10.3) 06/21/17 05:40 Total Bilirubin 0.8 mg/dL (0.3-1.0) 06/20/17 17:27 Direct Bilirubin 0.35 mg/dL (0.0-0.2) H 06/20/17 17:27 AST 101 U/L (13-39) H 06/20/17 17:27 ALT 48 U/L (7-52) 06/20/17 17:27 Alkaline Phosphatase 111 U/L (34-104) H 06/20/17 17:27 Ammonia 67 umol/L (16-53) H 06/21/17 05:40 Creatine Kinase 53 U/L (30-223) 06/20/17 17:27 Troponin I 0.02 ng/mL (0.01-0.05) 06/20/17 17:27 B-Natriuretic Peptide 19.0 pg/mL (5.0-100.0) 06/20/17 17:27 Total Protein 6.5 gm/dL (6.0-8.3) 06/20/17 17:27 Albumin 3.2 gm/dL (4.2-5.5) L 06/20/17 17:27 Globulin 3.3 gm/dL 06/20/17 17:27 Albumin/Globulin Ratio 1.0 (1.0-1.8) 06/20/17 17:27 Triglycerides 122 mg/dL (<150) 06/20/17 17:27 Cholesterol 70 mg/dL (<200) 06/20/17 17:27 LDL Cholesterol Direct 31 mg/dL (75-193) L 06/20/17 17:27 HDL Cholesterol 26 mg/dL (23-92) 06/20/17 17:27 HIV 1&2 Antibody Screen NEGATIVE (NEG) 06/21/17 05:40 - Physical Exam Vitals and I&O: Vital Signs Temp 98.3 F 06/22/17 04:00 Pulse 80 06/22/17 04:00 Resp 18 06/22/17 04:00 BP 121/69 06/22/17 04:00 Pulse Ox 94 06/22/17 04:00 Intake & Output 06/21/17 06/22/17 06/22/17 18:59 06:59 18:59 Intake Total 450 500 Output Total 250 Balance 200 500 Weight (lbs) 103.419 kg 103.419 kg Intake: Oral 450 500 Output: Urine 250 Other: # Voids 2 # Bowel Movements 1 2 Active Medications: Current Medications Acetaminophen/Hydrocodone Bitart ([place] 5mg/325mg) 1 tab PO Q8H PRN PRN Reason: MILD PAIN Stop: 08/20/17 16:51 Al Hydrox/Mg Hydrox/Simethicone (Maalox) 30 ml PO Q6HR PRN PRN Reason: GI UPSET Amitriptyline HCl (Elavil) 25 mg PO HS [facility] PRN Reason: Protocol Stop: 08/20/17 20:59 Last Admin: 06/21/17 20:38 Dose: 25 mg Artificial Tears (Artificial Tears Ophth Soln) 1 drop EACH EYE QID [facility] Stop: 08/20/17 16:59 Last Admin: 06/22/17 14:03 Dose: Not Given Benztropine Mesylate (Cogentin) 1 mg PO BID [facility] Stop: 08/20/17 16:59 Last Admin: 06/22/17 09:12 Dose: 1 mg Betamethasone/Clotrimazole (Lotrisone Cream) 1 appl TP BID [facility] Stop: 08/20/17 16:59 Last Admin: 06/22/17 09:00 Dose: 1 appl Diphenhydramine HCl (Benadryl 50 Mg/Ml) 25 mg IVP Q6HR PRN PRN Reason: Itching Stop: 08/21/17 09:47 Ferrous Sulfate (Iron) 325 mg PO DAILY [facility] Stop: 08/21/17 08:59 Last Admin: 06/22/17 09:12 Dose: 325 mg Glucagon (Glucagen) 1 mg SUBQ PRN PRN PRN Reason: BLOOD GLUCOSE BELOW 60 Heparin Sodium (Porcine) (Heparin) 5,000 units SUBQ Q12HR [facility] Stop: 08/20/17 20:59 Last Admin: 06/22/17 09:12 Dose: 5,000 units Hydromorphone HCl (Dilaudid) 1 mg IVP Q3H PRN PRN Reason: Pain (Moderate) Stop: 08/19/17 22:29 Last Admin: 06/21/17 17:30 Dose: 1 mg Hydromorphone HCl (Dilaudid) 2 mg IVP Q3H PRN PRN Reason: Pain (Severe) Stop: 08/19/17 23:20 Last Admin: 06/22/17 14:02 Dose: 2 mg Acyclovir Sodium 1,000 mg/ (Sodium Chloride) 250 mls @ 250 mls/hr IV Q8HR [facility] Stop: 08/21/17 12:59 Last Admin: 06/22/17 14:03 Dose: 250 mls/hr Vancomycin HCl 1.5 gm/ Sodium (Chloride) 500 mls @ 250 mls/hr IV Q12H [facility] Stop: 08/21/17 11:59 Lactulose (Cephulac) 60 gm PO QID [facility] Stop: 08/20/17 16:59 Last Admin: 06/22/17 14:03 Dose: Not Given Lisinopril (Zestril) 20 mg PO DAILY [facility] Stop: 08/21/17 08:59 Lorazepam (Ativan) 1 mg PO Q6H PRN; Protocol PRN Reason: Anxiety Stop: 08/20/17 16:51 Last Admin: 06/21/17 22:27 Dose: 1 mg Miscellaneous (Vancomycin Iv Per Pharmacy) 1 ea MC PRN PRN PRN Reason: PROTOCOL Stop: 08/21/17 09:39 Multivitamins/Vitamin C (Theragran) 1 tab PO DAILY [facility] Stop: 08/21/17 08:59 Last Admin: 06/22/17 09:11 Dose: 1 tab Ondansetron HCl (Zofran) 4 mg IV Q4H PRN PRN Reason: Nausea Stop: 08/19/17 22:29 Pantoprazole Sodium (Protonix) 40 mg PO DAILY [facility] Stop: 08/21/17 08:59 Last Admin: 06/22/17 09:11 Dose: 40 mg Quetiapine Fumarate (Seroquel) 50 mg PO HS [facility] PRN Reason: Protocol Stop: 08/20/17 20:59 Rifaximin (Xifaxan) 600 mg PO BID [facility] Stop: 08/20/17 16:59 Last Admin: 06/22/17 09:11 Dose: 600 mg Sodium Chloride (Nacl Tab) 2 gm PO DAILY [facility] Stop: 08/21/17 08:59 Last Admin: 06/22/17 09:11 Dose: 2 gm Zolpidem Tartrate (Ambien) 5 mg PO HS PRN PRN Reason: Insomnia Stop: 08/20/17 16:51 - Procedures Procedures: Procedures Procedure Code Date EXCISION OF DUODENUM, ENDO, DIAGN [id number] 06/06/17 EXCISION OF STOMACH, ENDO, DIAGN [id number] 06/06/17 EXCISION OF TRANSVERSE COLON, ENDO [id number] 06/06/17 Assessment/Plan - Problem List Patient Problems: All Active Problems STATUS POST FALL WITH THROMBOCYTOPENIA (Acute) Acute exacerbation of chronic obstructive pulmonary disease (COPD) (Acute) J44.1 H/O chronic hepatitis (Acute) Z87.19 HYPONATREMIA WITH LOW BACK PAIN (Acute) Hepatic encephalopathy (Acute) K72.90 Pneumonia, organism unspecified (Acute) J18.9 S/P FALLL...POSS. HIP FX (Acute)
[2017-06-23] MEDS: SODIUM CHLORIDE 0.9% IV SCH (06:00)
[2017-06-23] MEDS: ACYCLOVIR SODIUM IV SCH (06:00)
[2017-06-23] MEDS: HYDROmorphone 2 mg/mL 1mL Vial IVP PRN (09:23)
[2017-06-23] MEDS: Benztropine 1 MG TAB PO SCH (09:51)
[2017-06-23] MEDS: Multivitamin Tab PO SCH (09:53)
[2017-06-23] MEDS: Ferrous Sulfate 325 MG TAB PO SCH (09:53)
[2017-06-23] MEDS: Pantoprazole 40 mg EC Tab PO SCH (09:53)
[2017-06-23] MEDS: Betamethasone/Clotrimazole Cream 15 gm Tube TP SCH (09:55)
[2017-06-23] MEDS: Lactulose 10 Gm/15 mL 30mL UDC PO SCH ×2 (11:45→13:07)
[2017-06-23] MEDS: Polyvinyl Alcohol Ophth Soln 15 mL Bottle EACH EYE SCH ×2 (11:45→13:07)
[2017-06-23] MEDS ORDERED: ACYCLOVIR SODIUM IV SCH (13:00)
[2017-06-23] MEDS ORDERED: DEXTROSE 5% IV SCH (13:00)
== END 2017-06-23 13:05 | disposition home or self-care (01) | DRG 871 ==
LOC: ER 16:53 → MSI 20:25
PROVIDERS: ADMIT Internal Medicine; ATTEND Internal Medicine
DX: A41.9 Sepsis, unspecified organism (principal); K76.7 Hepatorenal syndrome; D61.818 Other pancytopenia; E11.22 Type 2 diabetes mellitus with diabetic chronic kidney disease; F20.9 Schizophrenia, unspecified; F03.90 Unspecified dementia, unspecified severity, without behavioral disturbance, psychotic disturbance, mood disturbance, and anxiety; K72.90 Hepatic failure, unspecified without coma; E78.5 Hyperlipidemia, unspecified; F31.9 Bipolar disorder, unspecified; K74.60 Unspecified cirrhosis of liver; F17.210 Nicotine dependence, cigarettes, uncomplicated; B18.2 Chronic viral hepatitis C; K21.9 Gastro-esophageal reflux disease without esophagitis; M25.552 Pain in left hip; J44.9 Chronic obstructive pulmonary disease, unspecified; N18.9 Chronic kidney disease, unspecified; I12.9 Hypertensive chronic kidney disease with stage 1 through stage 4 chronic kidney disease, or unspecified chronic kidney disease; M19.90 Unspecified osteoarthritis, unspecified site; R21 Rash and other nonspecific skin eruption; Z91.81 History of falling; Z83.3 Family history of diabetes mellitus; Z82.49 Family history of ischemic heart disease and other diseases of the circulatory system
CPT/HCPCS: 36415-UA; 71010-TC; 73521; 80048-TC; 80053-TC; 80061-TC; 80076-TC; 82140-TC; 82550-TC; 83605; 83880-TC; 84484-TC; 85025-TC; 85610-TC; 86703-TC; 87529-90; 93005; J1170; J1200; J1644; J2270; J2405; J3370; J7040; Z7610

== ENCOUNTER 2017-09-24 19:37 | Inpatient (IN) | payer MEDICARE, MEDICAID ==
--- NOTE | 2017-09-24 20:14 | ED Physician Chart ---
ED Chief Complaint/HPI - Patient Information Date Seen:: 09/24/17 Time Seen:: 19:50 Chief Complaint:: rash History of Present Illness:: Patient's had a burning, pruritic generalized rash last 1 month. He has had upper extremity edema for the last 2 days. Allergies:: Allergies Allergy/AdvReac Type Severity Reaction Status Date / Time No Known Allergies Allergy Verified 09/24/17 19:50 Vitals:: Vital Signs - 8 hr 09/24/17 19:40 Temp 98.1 F HR 88 RR 18 BP 127/80 O2 Sat % 100 Historian:: Patient Review:: Nurse's Note Reviewed, Transfer documents Reviewed ED Review of Systems - Review of Systems General/Constitutional: No fever, No chills Skin: Skin lesions Head: No headache Eyes: No loss of vision ENT: No earache, No nasal drainage, No sore throat Neck: No neck pain Cardio Vascular: No chest pain Pulmonary: No SOB GI: No nausea, No vomiting G/U: No dysuria Musculoskeletal: No bone or joint pain, No back pain, No muscle pain Psychiatric: Prior psych history Hematopoietic: No bruising, No lymphadenopathy Allergic/Immuno: No urticaria, No angioedema Neurological: No syncope, No focal symptoms ED Past Medical History - Past Medical History Past Medical History: Asthma/COPD, Dyslipidemia, Dementia, Other Family History: HTN, Cancer Social History: Care Facility (patient formerly smoked cigarettes and drank alcohol), Other Surgical History: other (left elbow; left hip; left knee) Psychiatricy History: Dementia Medication: Reviewed Family Medical History - Family Member Mother History Unknown: Yes Ethnicity: Unknown Living Status: Hx Family Cancer: Yes Hx Family Coronary Artery Disease: No Hx Family Congestive Heart Failure: No Hx Family Hypertension: No Hx Family Stroke: No Hx Family Diabetes: No Hx Family Seizures: No Hx Family Dementia: No Hx Family AIDS: No Hx Family HIV: No Hx Family COPD: No Hx Family Hepatitis: No Hx Family Psychiatric Problems: No Hx Family Tuberculosis: No unknown History Unknown: Yes Ethnicity: Non- Living Status: Hx Family Cancer: No Hx Family Coronary Artery Disease: No Hx Family Congestive Heart Failure: No Hx Family Hypertension: Yes Hx Family Stroke: No Hx Family Diabetes: No Hx Family Seizures: No Hx Family Dementia: No Hx Family AIDS: No Hx Family HIV: No Hx Family COPD: No Hx Family Hepatitis: No Hx Family Psychiatric Problems: No Hx Family Tuberculosis: No Father History Unknown: Yes Ethnicity: Unknown Living Status: Hx Family Cancer: No Hx Family Coronary Artery Disease: No Hx Family Congestive Heart Failure: No Hx Family Hypertension: No Hx Family Stroke: No Hx Family Diabetes: No Hx Family Seizures: No Hx Family Dementia: No Hx Family AIDS: No Hx Family HIV: No Hx Family COPD: No Hx Family Hepatitis: No Hx Family Psychiatric Problems: No Hx Family Tuberculosis: No Sister History Unknown: Yes Ethnicity: Living Status: ED Physical Exam - Physical Examination Other Gen/Cons comments:: Chronically ill-appearing; alert and oriented to the correct year only Head: Atraumatic Eyes: Lids, conjuctiva normal, PERRL Other Skin comments:: Erythema and swelling of both upper extremities; maculopapular rash on anterior torso; petechia anterior lower legs right more than left ENMT: External ears, nose nl Other ENMT comments:: Edentulous Neck: No nuchal rigidity Respiratory: Nl effort/Exclusion, Clear to Auscultation Cardio Vascular: RRR, No murmur, gallop, rubs, NL S1 S2 GI: Normal BS's Other GI comments:: Abdomen distended; diffuse tenderness Other Extremities comments:: See above under skin Neuro/Psych: No focal deficits Misc: Normal back ED Septic Shock - . Is Septic Shock (SBP<90, OR Lactate>4 mmol\L) present?: No - <6hrs of presentation: Vital Signs: Vital Signs - 8 hr 09/24/17 19:40 Temp 98.1 F HR 88 RR 18 BP 127/80 O2 Sat % 100 ED Discharge Plan - Patient Disposition Admit/Discharge/Transfer: Acute Care w/in this hosp Condition at Disposition: Stable
[2017-09-24 20:37] LABS: HEMATOCRIT 29.8 % (41.0-60); HEMOGLOBIN 10.1 gm/dL (12-16); MEAN CELL VOLUME 88.9 fl (80-99); MEAN CORPUSCULAR HEMOGLOBIN 30.1 pg (27.0-31.0); MEAN CORPUSCULAR HGB CONC 33.9 pg (28.0-36.0); MEAN PLATELET VOLUME 7.6 fl; PLATELET COUNT 85 Th/cmm (150-400); RED BLOOD COUNT 3.36 Mil/cmm (3.80-5.80); RED CELL DISTRIBUTION WIDTH 15.2 % (11.5-20.0); WHITE BLOOD COUNT 4.8 Th/cmm (4.8-10.8)
[2017-09-24 20:48] LABS: INR 1.32 (0.5-1.4); PROTHROMBIN TIME (TEST) 13.9 SECONDS (9.5-11.5)
[2017-09-24 20:54] LABS: ALB/GLOB RATIO 0.7 (1.0-1.8); ALBUMIN 2.1 gm/dL (4.2-5.5); ALKALINE PHOSPHATASE 71 U/L (34-104); ANION GAP 7.5 (7.0-16.0); BILIRUBIN,TOTAL 0.6 mg/dL (0.3-1.0); BUN - UREA NITROGEN 7 mg/dL (7-25); CARBON DIOXIDE 24.4 mEq/L (21.0-31.0); CHLORIDE 106 mEq/L (98-107); CREATININE - SERUM 0.7 mg/dL (0.7-1.3); GFR AFRICAN-AMERICAN > 60.0 ml/min (>90); GFR NON AFRICAN-AMERICAN > 60.0 ml/min; GLUCOSE 107 mg/dL (70-105); POTASSIUM SERUM 3.9 mEq/L (3.5-5.1); SGOT 55 U/L (13-39); SGPT/ALT 22 U/L (7-52); SODIUM SERUM 134 mEq/L (136-145); TOTAL PROTEIN,SERUM 5.2 gm/dL (6.0-8.3)
[2017-09-24] MEDS ORDERED: NUTRITIONAL SUPPLEMENT 113 GM PO SCH (21:17)
[2017-09-24 21:53] LABS: BAND NEUTROPHILE 0 % (0-10); LYMPHOCYTE 43 % (20-50); MANUAL DIFF REQUIRED? YES; MONOCYTE 10 % (2-10); NEUTROPHILS 33 % (40-80); TOTAL CELLS COUNTED 100
[2017-09-24 21:54] LABS: BASOPHIL 0 % (0-3); EOSINOPHIL 14 % (0-5); PLATELET ESTIMATE DECREASED PLATELETS (NORMAL); PLATELET MORPHOLOGY NORMAL (NORMAL)
[2017-09-24] MEDS ORDERED: GLUCAGON HCl 1 MG KIT IVP PRN (22:15)
[2017-09-24] MEDS: Lactulose 10 Gm/15 mL 30mL UDC PO SCH ×2 (22:27→22:35)
[2017-09-24] MEDS: Pantoprazole 40 mg EC Tab PO SCH (22:28)
[2017-09-24] MEDS: Hydrocodone/APAP 5mg/325mg Tab PO PRN (22:28)
[2017-09-24] MEDS: Peg-400/Propylene Ophth Soln 5 mL Bottle EACH EYE SCH (22:34)
[2017-09-25 01:54] VITALS: BP 158/74
[2017-09-25 05:42] LABS: % LYMPHOCYTES 42.8 % (20.0-50.0); % MONOCYTES 12.2 % (2.0-10.0); BASOPHILE ABSOLUTE 0.1 Th/cumm (0-0.2); EOSINOPHILE ABSOLUTE 0.4 Th/cmm (0.1-0.4); HEMATOCRIT 26.1 % (41.0-60); HEMOGLOBIN 8.8 gm/dL (12-16); LYMPHOCYTE ABSOLUTE 1.5 Th/cmm (1.5-3.0); MEAN CELL VOLUME 89.2 fl (80-99); MEAN CORPUSCULAR HGB CONC 33.6 pg (28.0-36.0); MONOCYTE ABSOLUTE 0.4 Th/cmm (0.3-1.0); PLATELET COUNT 38 Th/cmm (150-400); RED BLOOD COUNT 2.93 Mil/cmm (3.80-5.80); RED CELL DISTRIBUTION WIDTH 15.4 % (11.5-20.0)
[2017-09-25 05:45] LABS: BUN - UREA NITROGEN 7 mg/dL (7-25); CALCIUM SERUM 7.8 mg/dL (8.6-10.3); CARBON DIOXIDE 22.7 mEq/L (21.0-31.0); CHLORIDE 107 mEq/L (98-107); CREATININE - SERUM 0.7 mg/dL (0.7-1.3); GFR AFRICAN-AMERICAN > 60.0 ml/min (>90); GFR NON AFRICAN-AMERICAN > 60.0 ml/min; GLUCOSE 93 mg/dL (70-105); POTASSIUM SERUM 3.7 mEq/L (3.5-5.1); SODIUM SERUM 134 mEq/L (136-145)
[2017-09-25 05:59] LABS: WHITE BLOOD COUNT 3.4 Th/cmm (4.8-10.8)
[2017-09-25] MEDS: Pantoprazole 40 mg EC Tab PO SCH (06:42)
--- NOTE | 2017-09-25 08:24 | Diagnostic Imaging Report ---
CHEST X-RAY: AP view INDICATION: Pneumonia COMPARISON: 06/20/2017 FINDINGS: The patient is rotated. A skin fold of the right upper hemithorax is noted. Chronic lung changes are seen with left basal subsegmental atelectasis versus scarring. Heart size is normal. Minimal atherosclerosis of the aortic arch is noted. Degenerative changes of the spine are noted. IMPRESSION: Chronic lung changes and left basal subsegmental atelectasis versus scarring. No focal consolidation identified.
[2017-09-25] MEDS: Ferrous Sulfate 325 MG TAB PO SCH (08:53)
[2017-09-25] MEDS: Benztropine 1 MG TAB PO SCH ×2 (08:53→16:57)
[2017-09-25] MEDS: Hydrocodone/APAP 5mg/325mg Tab PO PRN ×2 (08:53→16:57)
[2017-09-25] MEDS: Lactulose 10 Gm/15 mL 30mL UDC PO SCH ×4 (08:54→21:02)
[2017-09-25] MEDS: Multivitamin Tab PO SCH (08:54)
[2017-09-25] MEDS ORDERED: Non-Formulary Item 1 EA (Amino Acids/Protein Hydrolys [Pro-Stat Sugar Free Liquid] 30 ML) PO SCH (09:00)
[2017-09-25] MEDS: Peg-400/Propylene Ophth Soln 5 mL Bottle EACH EYE SCH ×4 (09:00→21:10)
[2017-09-25] MEDS ORDERED: VTE Chemical Prophylaxis Screen/Admission MC PRN (11:00)
--- NOTE | 2017-09-25 15:35 | Consultation ---
DATE OF CONSULTATION: 09/25/2017 REFERRING PHYSICIAN: Dr. Nair. REASON FOR CONSULTATION: Thrombocytopenia. HISTORY OF PRESENT ILLNESS: The patient is a 66-year-old male known to me from previous admissions. The patient has chronic thrombocytopenia secondary to splenomegaly. He presented to the hospital with generalized rash and itching. PAST MEDICAL HISTORY: Asthma, COPD, dementia, anxiety, schizophrenia. MEDICATIONS: Reviewed. PHYSICAL EXAMINATION: GENERAL: The patient is extremely anxious, afebrile. VITAL SIGNS: Temperature 98.1, blood pressure 127/80. HEENT: Atraumatic. No cranial nerve palsy. NECK: No lymphadenopathy. SKIN: Generalized maculopapular erythematous rash. CHEST: Clear. ABDOMEN: Soft. EXTREMITIES: Ecchymosis on both upper extremities. LABORATORY DATA: White count 3.4, hemoglobin 8.8, platelets 38. The admission platelet was 85, which is above his average and this is likely reactive level and now with a platelet count of 38, which is his baseline average. ASSESSMENT: Generalized skin rash, likely drug reaction, will be continued on ___ as needed. No transfusion is required. I will obtain iron studies. The patient's INR is within normal limits and he has no bleeding, no need for transfusion. Thank you, Dr. Nair for the opportunity to participate in the care of this interesting case. JOB# [id number]
[2017-09-25 16:49] LABS: TISSUE KOH / SCABIES NEGATIVE FOR SCABIES
[2017-09-25] MEDS ORDERED: Hydrocortisone 1% Cream 1 gm Packet TP SCH (17:00)
--- NOTE | 2017-09-25 19:29 | History & Physical ---
ADMIT DATE: 09/24/2017 HISTORY OF PRESENT ILLNESS: The patient is a 66-year-old male patient, very well known to me with history of hypertension, history of liver disease, history of hepatitis C, history of hepatic encephalopathy, history of psychosis, bipolar disorder, history of hip fracture, apparently had a bilateral arm cellulitis and swelling. The patient was referred, was admitted. PAST MEDICAL HISTORY: As enumerated above including history of COPD, asthma, dementia, anxiety, schizophrenia. MEDICATIONS: As noted in the chart. PHYSICAL EXAMINATION: GENERAL: Normal. HEAD: Normal. ENT: Normal. LUNGS: Bilaterally clear. CARDIOVASCULAR SYSTEM: S1, S2 heard. ABDOMEN: Soft. EXTREMITIES: Ecchymosis of both upper extremities as well as cellulitis. LABORATORY DATA: Hemoglobin was 8.8, white count 3.4, platelets 38. DIAGNOSES: Bilateral upper extremity cellulitis, purpura, thrombocytosis, history of splenomegaly, history of COPD, history of hypertension, history of hip fracture, history of dementia, history of hepatitis C was made. The patient is being admitted. We will have Hematology as well as ID consult and I will follow the patient. JOB# [id number]
[2017-09-25] MEDS: HYDROmorphone 2 mg/mL 1mL Vial IVP PRN (21:03)
--- NOTE | 2017-09-25 23:45 | Consultation ---
Consult Note - Consult Note Service Date: 09/25/17 Referring Physician: Lisette Nair Consult Note: PHYSICIAN Consultation Note: Date of Admission: 09/24/17 Purpose of Consultation: Rash. Hepatitis C. Chief Complaint: Patient CARLOS EDUARDO ZUNIGA [facility] with BILATERAL UPPER EXTREMITY CELLULITIS. History of Present Illness: Patient is 66 year male with a past medical history of follow-up hypertension, carotid disease, asthma, COPD, history of left hip ORIF, hepatitis C, cirrhosis fell at her nursing facility on his right hip. He complained of follow-up pain in right hip. Otherwise patient denies any fever or chills. On initial evaluation, patient's temperature was 98.9F and WBC count 4000 with the platelets 59,000. So patient has no fever. His WBC count went down to 3300. ID consult was called for further management. Past Medical History: COPD, asthma, HTN, CAD, Osteoarthritis. history of left hip ORIF. Chronic hepatitis C. Cirrhosis. Allergies Allergy/AdvReac Type Severity Reaction Status Date / Time No Known Allergies Allergy Verified 09/24/17 19:50 Vital Signs Temp 98.4 F 09/25/17 20:00 Pulse 84 09/25/17 20:00 Resp 18 09/25/17 20:00 BP 124/54 09/25/17 20:00 Pulse Ox 98 09/25/17 20:00 Intake & Output 09/25/17 09/25/17 09/26/17 06:59 18:59 06:59 Intake Total 800 Balance 800 Weight (lbs) 98.883 kg 98.883 kg Intake: Oral 800 Other: # Voids 2 2 # Bowel Movements 0 2 Weight Source Bedscale Bedscale Laboratory Results - last 24 hr 09/25/17 09/25/17 09/25/17 04:50 04:50 04:50 WBC 3.4 L RBC 2.93 L Hgb 8.8 L Hct 26.1 L MCV 89.2 MCH 30.0 MCHC Differential 33.6 RDW 15.4 Plt Count 38 L MPV 9.0 Neutrophils % 30.0 L Lymphocytes % 42.8 Monocytes % 12.2 H Eosinophils % 12.0 H Basophils % 3.0 H Sodium 134 L Potassium 3.7 Chloride 107 Carbon Dioxide 22.7 Anion Gap 8.0 BUN 7 Creatinine 0.7 Est GFR ( Amer) > 60.0 Est GFR (Non-Af Amer) > 60.0 BUN/Creatinine Ratio 10.0 Glucose 93 Calcium 7.8 L Ammonia 81 H Scabies Examination SKINNY Preparation 09/25/17 16:15 WBC RBC Hgb Hct MCV MCH MCHC Differential RDW Plt Count MPV Neutrophils % Lymphocytes % Monocytes % Eosinophils % Basophils % Sodium Potassium Chloride Carbon Dioxide Anion Gap BUN Creatinine Est GFR ( Amer) Est GFR (Non-Af Amer) BUN/Creatinine Ratio Glucose Calcium Ammonia Scabies Examination NEGATIVE FOR SCABIES SKINNY Preparation TNP Home Medication Medication Instructions Recorded Type Ferrous Sulfate [Iron] 325 mg PO DAILY 05/18/16 History Lactulose 90 ml PO QID 05/18/16 History Dicyclomine [Bentyl 10 Mg Cap*] 20 mg PO BID 09/24/17 History Light Mineral Oil/Min Oil/Pf 1 each EACH EYE QID 09/24/17 History [Retaine Mgd Eye Drops] Trazodone HCl 50 mg PO HS 09/24/17 History hydrOXYzine [Atarax*] 25 mg PO TID 09/24/17 History Current Medications Generic Name Dose Route Start Last Admin Trade Name Freq PRN Reason Stop Dose Admin Acetaminophen/Hydrocodone Bitart 1 tab 09/24/17 21:17 09/25/17 16:57 [place] 5mg/325mg PO 11/23/17 21:16 1 tab Q8H PRN Administration PAIN Al Hydrox/Mg Hydrox/Simethicone 30 ml 09/24/17 22:01 Maalox PO 11/23/17 22:00 Q6HR PRN GI DISTRESS Amitriptyline HCl 25 mg 09/24/17 21:17 09/25/17 21:01 Elavil PO 11/23/17 21:16 25 mg HS [facility]RIL Administration Protocol Benztropine Mesylate 1 mg 09/25/17 09:00 09/25/17 16:57 Cogentin PO 11/24/17 08:59 1 mg BID [facility] Administration Diphenhydramine HCl 25 mg 09/25/17 11:53 09/25/17 14:14 Benadryl PO 11/24/17 00:12 25 mg Q6HR PRN Administration Itching Ferrous Sulfate 325 mg 09/25/17 09:00 09/25/17 08:53 Iron PO 11/24/17 08:59 325 mg DAILY [facility] Administration Glucagon 1 mg 09/24/17 22:15 Glucagen IVP 11/23/17 22:14 PRN PRN BS < 60 Hydrocortisone 1 appl 09/25/17 17:00 09/25/17 16:57 Hydrocortisone 1% TP 11/24/17 16:59 1 appl BID [facility] Administration Hydromorphone HCl 2 mg 09/25/17 18:31 09/25/17 21:03 Dilaudid IVP 11/24/17 18:30 2 mg Q3HR PRN Administration Severe Pain Hydromorphone HCl 1 mg 09/25/17 18:40 Dilaudid IVP 11/24/17 18:39 Q3HR PRN Pain (Moderate) Hydroxyzine HCl 50 mg 09/25/17 21:00 09/25/17 21:02 Atarax PO 11/24/17 20:59 50 mg TID [facility] Administration Protocol Lactulose 60 gm 09/24/17 21:17 09/25/17 21:02 Cephulac PO 11/23/17 21:16 60 gm QID [facility] Administration Lisinopril 20 mg 09/25/17 09:00 09/25/17 08:54 Zestril PO 11/24/17 08:59 20 mg DAILY [facility] Administration Lorazepam 1 mg 09/24/17 21:17 Ativan PO 11/23/17 21:16 Q6H PRN Anxiety Protocol Miscellaneous 1 ea 09/25/17 11:00 Vte [employer] Prophylaxis Screen/ Admission 11/24/17 10:59 PRN PRN PROTOCOL Multivitamins/Vitamin C 1 tab 09/25/17 09:00 09/25/17 08:54 Theragran PO 11/24/17 08:59 1 tab DAILY [facility] Administration Pantoprazole Sodium 40 mg 09/24/17 22:15 09/25/17 06:42 Protonix PO 11/23/17 22:14 40 mg QDAC [facility] Administration Propylene Glycol 1 drop 09/24/17 22:15 09/25/17 21:10 Systane Ophth Soln EACH EYE 11/23/17 22:14 1 drop QID [facility] Administration Quetiapine Fumarate 50 mg 09/24/17 21:17 09/25/17 21:02 Seroquel PO 11/23/17 21:16 50 mg HS [facility] Administration Protocol Sodium Chloride 2 gm 09/25/17 09:00 09/25/17 08:53 Nacl Tab PO 11/24/17 08:59 2 gm DAILY [facility] Administration Zolpidem Tartrate 5 mg 09/24/17 21:17 Ambien PO 11/23/17 21:16 HS PRN Insomnia Review of Systems: A 12 point ROS was reviewed with the pertinent positive and negatives noted in the HPI. Social History Smoking Status Former smoker Alcohol Use Yes Family Medical History Family Medical History Start: 09/24/17 21: 01 Freq: ONCE Status: Active Document 09/24/17 23:39 ALENA (Rec: 09/24/17 23:39 DOROZCO [id number]) Family Medical History Father History Unknown Yes Mother History Unknown Yes Physical Exam: General: Comfortable not in acute distress. HEENT: Head: NC NT. Oral cavity: Moist, pink tongue. Eyes: Pallor is present icterus. PERRLA. Neck: Supple, no JVD. Cardio: S1 and S2 within normal limits regular rhythm. Respiratory: Vesicular breath sound. No crackles no wheezing. Abdominal: Soft, nontender nondistended bowel sounds present Genital/Urinary: Within normal limits. No skin lesions. Extremities: No cyanosis, no clubbing, no edema Neurological: Alert, awake, oriented 3. Skin: There is pinkish red, palpable discrete rash covering all of the body. Some of the rashes are confluent. Assessment: 1. Hypersensitivity reaction to some drug or food. 2. Chronic hepatitis C, without evidence of neuropathy. 3. Thrombocytopenia. 4. COPD, asthma. 5. HTN. 6. CAD. 7. Osteoarthritis. 8. History of left hip ORIF. 9. Distant history of MRSA infection of the left hip surgical wound. It has healed completely. Plan: Will give Solu-Medrol and continue meropenem. Thank you, Dr. Nair, for involving me in taking care of this patient Signed, Justino Chand M.D. 09/25/[id number]
[2017-09-26] MEDS: HYDROmorphone 1 mg/mL 1mL Syr IVP PRN ×4 (01:07→22:53)
[2017-09-26 05:38] LABS: % EOSINOPHILS 12.4 % (0.0-5.0); % LYMPHOCYTES 35.8 % (20.0-50.0); % MONOCYTES 11.5 % (2.0-10.0); % NEUTROPHILS 40.3 % (40.0-80.0); EOSINOPHILE ABSOLUTE 0.4 Th/cmm (0.1-0.4); HEMOGLOBIN 9.7 gm/dL (12-16); LYMPHOCYTE ABSOLUTE 1.2 Th/cmm (1.5-3.0); MEAN CELL VOLUME 89.2 fl (80-99); MEAN CORPUSCULAR HEMOGLOBIN 29.8 pg (27.0-31.0); MEAN CORPUSCULAR HGB CONC 33.4 pg (28.0-36.0); MEAN PLATELET VOLUME 8.9 fl; MONOCYTE ABSOLUTE 0.4 Th/cmm (0.3-1.0); NEUTROPHILE ABSOLUTE 1.4 Th/cmm (1.8-8.0); PLATELET COUNT 58 Th/cmm (150-400); RED BLOOD COUNT 3.25 Mil/cmm (3.80-5.80); RED CELL DISTRIBUTION WIDTH 15.3 % (11.5-20.0); WHITE BLOOD COUNT 3.4 Th/cmm (4.8-10.8)
[2017-09-26] MEDS: Hydrocodone/APAP 5mg/325mg Tab PO PRN (05:41)
[2017-09-26 06:02] LABS: ANION GAP 8.6 (7.0-16.0); BUN - UREA NITROGEN 8 mg/dL (7-25); CALCIUM SERUM 8.2 mg/dL (8.6-10.3); CHLORIDE 108 mEq/L (98-107); CREATININE - SERUM 0.7 mg/dL (0.7-1.3); GFR AFRICAN-AMERICAN > 60.0 ml/min (>90); GFR NON AFRICAN-AMERICAN > 60.0 ml/min; GLUCOSE 102 mg/dL (70-105); POTASSIUM SERUM 3.6 mEq/L (3.5-5.1); SODIUM SERUM 136 mEq/L (136-145)
[2017-09-26] MEDS: Pantoprazole 40 mg EC Tab PO SCH (06:38)
--- NOTE | 2017-09-26 07:51 | Diagnostic Imaging Report ---
Right upper extremity Doppler venous ultrasound exam HISTORY: Swelling, cellulitis Sonographic sector images were obtained through the venous systems of both arms. Associated Doppler data was obtained. The exam demonstrates patency of the right internal jugular, subclavian, axillary, brachial, basilic veins bilaterally. There is patency of the right cephalic vein. The left cephalic vein cannot be well visualized due to overlying abnormal soft tissue changes. No intraluminal abnormalities are seen. No thrombus. Normal compressibility and augmentation responses. IMPRESSION: 1. No evidence of thrombophlebitis 2. The left cephalic vein could not be well visualized due to overlying abnormal soft tissue changes.
[2017-09-26] MEDS: Ferrous Sulfate 325 MG TAB PO SCH (08:35)
[2017-09-26] MEDS: Multivitamin Tab PO SCH (08:35)
[2017-09-26] MEDS: Benztropine 1 MG TAB PO SCH ×2 (08:35→17:04)
[2017-09-26] MEDS: Lactulose 10 Gm/15 mL 30mL UDC PO SCH ×4 (10:21→21:15)
[2017-09-26] MEDS: Peg-400/Propylene Ophth Soln 5 mL Bottle EACH EYE SCH ×4 (10:31→21:08)
--- NOTE | 2017-09-26 13:29 | Internal Medicine Prog Note ---
Internal Medicine Subjective - Subjective Service Date: 09/26/17 (c/o body rash but refuses to be examined) Patient seen and examined:: with staff Patient is:: awake Per staff patient has:: tolerating meds Internal Medicine Objective - Results Result Diagrams: 09/26/17 04:45 09/26/17 04:45 Recent Labs: Laboratory Last Values WBC 3.4 Th/cmm (4.8-10.8) L 09/26/17 04:45 RBC 3.25 Mil/cmm (3.80-5.80) L 09/26/17 04:45 Hgb 9.7 gm/dL (12-16) L 09/26/17 04:45 Hct 29.0 % (41.0-60) L 09/26/17 04:45 MCV 89.2 fl (80-99) 09/26/17 04:45 MCH 29.8 pg (27.0-31.0) 09/26/17 04:45 MCHC Differential 33.4 pg (28.0-36.0) 09/26/17 04:45 RDW 15.3 % (11.5-20.0) 09/26/17 04:45 Plt Count 58 Th/cmm (150-400) L 09/26/17 04:45 MPV 8.9 fl 09/26/17 04:45 Neutrophils % 40.3 % (40.0-80.0) 09/26/17 04:45 Band Neutrophils % 0 % (0-10) 09/24/17 20:20 Lymphocytes % 35.8 % (20.0-50.0) 09/26/17 04:45 Monocytes % 11.5 % (2.0-10.0) H 09/26/17 04:45 Eosinophils % 12.4 % (0.0-5.0) H 09/26/17 04:45 Basophils % 0.0 % (0.0-2.0) 09/26/17 04:45 Neutrophils (Manual) 33 % (40-80) L 09/24/17 20:20 Lymphocytes 43 % (20-50) 09/24/17 20:20 Monocytes 10 % (2-10) 09/24/17 20:20 Eosinophils 14 % (0-5) H 09/24/17 20:20 Basophils 0 % (0-3) 09/24/17 20:20 Platelet Estimate DECREASED PLATELETS (NORMAL) 09/24/17 20:20 Platelet Morphology NORMAL (NORMAL) 09/24/17 20:20 RBC Morph Micro Appear NORMAL (NORMAL) 09/24/17 20:20 PT 13.9 SECONDS (9.5-11.5) H 09/24/17 20:20 INR 1.32 (0.5-1.4) 09/24/17 20:20 Sodium 136 mEq/L (136-145) 09/26/17 04:45 Potassium 3.6 mEq/L (3.5-5.1) 09/26/17 04:45 Chloride 108 mEq/L (98-107) H 09/26/17 04:45 Carbon Dioxide 23.0 mEq/L (21.0-31.0) 09/26/17 04:45 Anion Gap 8.6 (7.0-16.0) 09/26/17 04:45 BUN 8 mg/dL (7-25) 09/26/17 04:45 Creatinine 0.7 mg/dL (0.7-1.3) 09/26/17 04:45 Est GFR ( Amer) > 60.0 ml/min (>90) 09/26/17 04:45 Est GFR (Non-Af Amer) > 60.0 ml/min 09/26/17 04:45 BUN/Creatinine Ratio 11.4 09/26/17 04:45 Glucose 102 mg/dL (70-105) 09/26/17 04:45 Calcium 8.2 mg/dL (8.6-10.3) L 09/26/17 04:45 Total Bilirubin 0.6 mg/dL (0.3-1.0) 09/24/17 20:20 AST 55 U/L (13-39) H 09/24/17 20:20 ALT 22 U/L (7-52) 09/24/17 20:20 Alkaline Phosphatase 71 U/L (34-104) 09/24/17 20:20 Ammonia 81 umol/L (16-53) H 09/25/17 04:50 Total Protein 5.2 gm/dL (6.0-8.3) L 09/24/17 20:20 Albumin 2.1 gm/dL (4.2-5.5) L 09/24/17 20:20 Globulin 3.1 gm/dL 09/24/17 20:20 Albumin/Globulin Ratio 0.7 (1.0-1.8) L 09/24/17 20:20 Scabies Examination NEGATIVE FOR SCABIES 09/25/17 16:15 SKINNY Preparation TNP 09/25/17 16:15 - Physical Exam Vitals and I&O: Vital Signs Temp 97.2 F 09/26/17 11:55 Pulse 83 09/26/17 11:55 Resp 20 09/26/17 11:55 BP 118/76 09/26/17 11:55 Pulse Ox 98 09/26/17 11:55 Intake & Output 09/25/17 09/26/17 09/26/17 18:59 06:59 18:59 Intake Total 800 50 Output Total 1 Balance 800 49 Weight (lbs) 218 lb 218 lb Intake: Oral 800 50 Output: Stool 1 Other: # Voids 2 2 # Bowel Movements 2 Stool Characteristics Soft Weight Source Bedscale Bedscale Active Medications: Current Medications Acetaminophen/Hydrocodone Bitart ([place] 5mg/325mg) 1 tab PO Q8H PRN PRN Reason: PAIN Stop: 11/23/17 21:16 Last Admin: 09/26/17 05:41 Dose: 1 tab Al Hydrox/Mg Hydrox/Simethicone (Maalox) 30 ml PO Q6HR PRN PRN Reason: GI DISTRESS Stop: 11/23/17 22:00 Amitriptyline HCl (Elavil) 25 mg PO HS [facility] PRN Reason: Protocol Stop: 11/23/17 21:16 Last Admin: 09/25/17 21:01 Dose: 25 mg Benztropine Mesylate (Cogentin) 1 mg PO BID [facility] Stop: 11/24/17 08:59 Last Admin: 09/26/17 08:35 Dose: 1 mg Diphenhydramine HCl (Benadryl) 25 mg PO Q6HR PRN PRN Reason: Itching Stop: 11/24/17 00:12 Last Admin: 09/26/17 02:22 Dose: 25 mg Ferrous Sulfate (Iron) 325 mg PO DAILY [facility] Stop: 11/24/17 08:59 Last Admin: 09/26/17 08:35 Dose: 325 mg Glucagon (Glucagen) 1 mg IVP PRN PRN PRN Reason: BS < 60 Stop: 11/23/17 22:14 Hydrocortisone (Hydrocortisone 1%) 1 appl TP BID [facility] Stop: 11/24/17 16:59 Last Admin: 09/26/17 10:32 Dose: Not Given Hydromorphone HCl (Dilaudid) 2 mg IVP Q3HR PRN PRN Reason: Severe Pain Stop: 11/24/17 18:30 Last Admin: 09/25/17 21:03 Dose: 2 mg Hydromorphone HCl (Dilaudid) 1 mg IVP Q3HR PRN PRN Reason: Pain (Moderate) Stop: 11/24/17 18:39 Last Admin: 09/26/17 10:27 Dose: 1 mg Hydroxyzine HCl (Atarax) 50 mg PO TID [facility] PRN Reason: Protocol Stop: 11/24/17 20:59 Last Admin: 09/26/17 13:07 Dose: 50 mg Lactulose (Cephulac) 60 gm PO QID [facility] Stop: 11/23/17 21:16 Last Admin: 09/26/17 13:06 Dose: Not Given Lisinopril (Zestril) 20 mg PO DAILY [facility] Stop: 11/24/17 08:59 Last Admin: 09/26/17 08:35 Dose: 20 mg Lorazepam (Ativan) 1 mg PO Q6H PRN; Protocol PRN Reason: Anxiety Stop: 11/23/17 21:16 Methylprednisolone Sodium Succinate (Solu-Medrol) 60 mg IVP Q8HR [facility] Stop: 11/25/17 04:59 Last Admin: 09/26/17 13:06 Dose: 60 mg Miscellaneous (Vte Chemical Prophylaxis Screen/ Admission) 1 ea [facility] PRN PRN PRN Reason: PROTOCOL Stop: 11/24/17 10:59 Multivitamins/Vitamin C (Theragran) 1 tab PO DAILY [facility] Stop: 11/24/17 08:59 Last Admin: 09/26/17 08:35 Dose: 1 tab Pantoprazole Sodium (Protonix) 40 mg PO QDAC [facility] Stop: 11/23/17 22:14 Last Admin: 09/26/17 06:38 Dose: 40 mg Propylene Glycol (Systane Ophth Soln) 1 drop EACH EYE QID [facility] Stop: 11/23/17 22:14 Last Admin: 09/26/17 13:07 Dose: Not Given Quetiapine Fumarate (Seroquel) 50 mg PO HS [facility] PRN Reason: Protocol Stop: 11/23/17 21:16 Last Admin: 09/25/17 21:02 Dose: 50 mg Sodium Chloride (Nacl Tab) 2 gm PO DAILY [facility] Stop: 11/24/17 08:59 Last Admin: 09/26/17 08:35 Dose: 2 gm Zolpidem Tartrate (Ambien) 5 mg PO HS PRN PRN Reason: Insomnia Stop: 11/23/17 21:16 General: weak, alert HEENT: NC/AT, PERRLA Neck: Supple Lungs: CTAB Cardiovascular: RRR Abdomen: soft, non-tender - Procedures Procedures: Procedures Procedure Code Date EXCISION OF DUODENUM, ENDO, DIAGN [id number] 06/06/17 EXCISION OF STOMACH, ENDO, DIAGN [id number] 06/06/17 EXCISION OF TRANSVERSE COLON, ENDO [id number] 06/06/17 Internal Medicine Assmt/Plan - Assessment Assessment: Chronic hepatitis C, without evidence of neuropathy. Thrombocytopenia. COPD asthma. HTN. CAD. Osteoarthritis. History of left hip ORIF. - Plan Plan: continue ivabx as per id follow up labs in am continue current plan of care
[2017-09-26] MEDS: Maalox 30 mL Cup PO PRN (21:08)
[2017-09-27] MEDS: Hydrocodone/APAP 5mg/325mg Tab PO PRN (01:38)
[2017-09-27] MEDS: Maalox 30 mL Cup PO PRN (03:11)
[2017-09-27] MEDS: HYDROmorphone 1 mg/mL 1mL Syr IVP PRN ×3 (03:11→18:40)
[2017-09-27] MEDS: Pantoprazole 40 mg EC Tab PO SCH (06:46)
[2017-09-27 06:49] LABS: HEMATOCRIT 28.2 % (41.0-60); HEMOGLOBIN 9.3 gm/dL (12-16); MEAN CELL VOLUME 89.1 fl (80-99); MEAN CORPUSCULAR HEMOGLOBIN 29.3 pg (27.0-31.0); MEAN CORPUSCULAR HGB CONC 32.9 pg (28.0-36.0); MEAN PLATELET VOLUME 8.1 fl; PLATELET COUNT 54 Th/cmm (150-400); RED BLOOD COUNT 3.17 Mil/cmm (3.80-5.80); RED CELL DISTRIBUTION WIDTH 15.6 % (11.5-20.0); WHITE BLOOD COUNT 5.7 Th/cmm (4.8-10.8)
[2017-09-27 07:10] LABS: % EOSINOPHILS 0.1 % (0.0-5.0); % LYMPHOCYTES 19.8 % (20.0-50.0); % MONOCYTES 5.9 % (2.0-10.0); % NEUTROPHILS 74.2 % (40.0-80.0); LYMPHOCYTE ABSOLUTE 1.3 Th/cmm (1.5-3.0); MONOCYTE ABSOLUTE 0.4 Th/cmm (0.3-1.0); NEUTROPHILE ABSOLUTE 4.8 Th/cmm (1.8-8.0)
[2017-09-27 07:11] LABS: ANION GAP 13.7 (7.0-16.0); BUN - UREA NITROGEN 11 mg/dL (7-25); CALCIUM SERUM 8.8 mg/dL (8.6-10.3); CARBON DIOXIDE 17.3 mEq/L (21.0-31.0); CHLORIDE 109 mEq/L (98-107); CREATININE - SERUM 0.7 mg/dL (0.7-1.3); GFR AFRICAN-AMERICAN > 60.0 ml/min (>90); GFR NON AFRICAN-AMERICAN > 60.0 ml/min; GLUCOSE 140 mg/dL (70-105); SODIUM SERUM 136 mEq/L (136-145)
[2017-09-27] MEDS: Ferrous Sulfate 325 MG TAB PO SCH (09:20)
[2017-09-27] MEDS: Benztropine 1 MG TAB PO SCH ×2 (09:20→16:20)
[2017-09-27] MEDS: Multivitamin Tab PO SCH (09:20)
[2017-09-27] MEDS: Lactulose 10 Gm/15 mL 30mL UDC PO SCH ×4 (09:20→20:05)
[2017-09-27] MEDS: methylPREDNISolone SS 40 mg Vial IVP SCH ×2 (09:21→20:05)
[2017-09-27] MEDS: Peg-400/Propylene Ophth Soln 5 mL Bottle EACH EYE SCH ×4 (09:31→20:05)
--- NOTE | 2017-09-27 11:26 | General Progress Note ---
Subjective - Review of Systems Events since last encounter: awake tolerating meds well Objective - Results Result Diagrams: 09/27/17 06:36 09/27/17 06:36 Recent Labs: Laboratory Last Values WBC 5.7 Th/cmm (4.8-10.8) 09/27/17 06:36 RBC 3.17 Mil/cmm (3.80-5.80) L 09/27/17 06:36 Hgb 9.3 gm/dL (12-16) L 09/27/17 06:36 Hct 28.2 % (41.0-60) L 09/27/17 06:36 MCV 89.1 fl (80-99) 09/27/17 06:36 MCH 29.3 pg (27.0-31.0) 09/27/17 06:36 MCHC Differential 32.9 pg (28.0-36.0) 09/27/17 06:36 RDW 15.6 % (11.5-20.0) 09/27/17 06:36 Plt Count 54 Th/cmm (150-400) L 09/27/17 06:36 MPV 8.1 fl 09/27/17 06:36 Neutrophils % 74.2 % (40.0-80.0) 09/27/17 06:36 Band Neutrophils % 0 % (0-10) 09/24/17 20:20 Lymphocytes % 19.8 % (20.0-50.0) L 09/27/17 06:36 Monocytes % 5.9 % (2.0-10.0) 09/27/17 06:36 Eosinophils % 0.1 % (0.0-5.0) 09/27/17 06:36 Basophils % 0.0 % (0.0-2.0) 09/27/17 06:36 Neutrophils (Manual) 33 % (40-80) L 09/24/17 20:20 Lymphocytes 43 % (20-50) 09/24/17 20:20 Monocytes 10 % (2-10) 09/24/17 20:20 Eosinophils 14 % (0-5) H 09/24/17 20:20 Basophils 0 % (0-3) 09/24/17 20:20 Platelet Estimate DECREASED PLATELETS (NORMAL) 09/24/17 20:20 Platelet Morphology NORMAL (NORMAL) 09/24/17 20:20 RBC Morph Micro Appear NORMAL (NORMAL) 09/24/17 20:20 PT 13.9 SECONDS (9.5-11.5) H 09/24/17 20:20 INR 1.32 (0.5-1.4) 09/24/17 20:20 Sodium 136 mEq/L (136-145) 09/27/17 06:36 Potassium 4.0 mEq/L (3.5-5.1) 09/27/17 06:36 Chloride 109 mEq/L (98-107) H 09/27/17 06:36 Carbon Dioxide 17.3 mEq/L (21.0-31.0) L 09/27/17 06:36 Anion Gap 13.7 (7.0-16.0) 09/27/17 06:36 BUN 11 mg/dL (7-25) 09/27/17 06:36 Creatinine 0.7 mg/dL (0.7-1.3) 09/27/17 06:36 Est GFR ( Amer) > 60.0 ml/min (>90) 09/27/17 06:36 Est GFR (Non-Af Amer) > 60.0 ml/min 09/27/17 06:36 BUN/Creatinine Ratio 15.7 09/27/17 06:36 Glucose 140 mg/dL (70-105) H 09/27/17 06:36 Calcium 8.8 mg/dL (8.6-10.3) 09/27/17 06:36 Total Bilirubin 0.6 mg/dL (0.3-1.0) 09/24/17 20:20 AST 55 U/L (13-39) H 09/24/17 20:20 ALT 22 U/L (7-52) 09/24/17 20:20 Alkaline Phosphatase 71 U/L (34-104) 09/24/17 20:20 Ammonia 81 umol/L (16-53) H 09/25/17 04:50 Total Protein 5.2 gm/dL (6.0-8.3) L 09/24/17 20:20 Albumin 2.1 gm/dL (4.2-5.5) L 09/24/17 20:20 Globulin 3.1 gm/dL 09/24/17 20:20 Albumin/Globulin Ratio 0.7 (1.0-1.8) L 09/24/17 20:20 Scabies Examination NEGATIVE FOR SCABIES 09/25/17 16:15 SKINNY Preparation TNP 09/25/17 16:15 - Physical Exam Vitals and I&O: Vital Signs Temp 96.4 F 09/27/17 10:17 Pulse 74 09/27/17 10:17 Resp 18 09/27/17 10:17 BP 114/70 09/27/17 10:17 Pulse Ox 95 09/27/17 10:17 Intake & Output 09/26/17 09/27/17 09/27/17 18:59 06:59 18:59 Intake Total 800 Balance 800 Weight (lbs) 98.883 kg 98.883 kg Intake: Oral 800 Other: # Voids 3 # Bowel Movements 0 Weight Source Bedscale Bedscale Active Medications: Current Medications Acetaminophen/Hydrocodone Bitart ([place] 5mg/325mg) 1 tab PO Q8H PRN PRN Reason: PAIN Stop: 11/23/17 21:16 Last Admin: 09/27/17 01:38 Dose: 1 tab Al Hydrox/Mg Hydrox/Simethicone (Maalox) 30 ml PO Q6HR PRN PRN Reason: GI DISTRESS Stop: 11/23/17 22:00 Last Admin: 09/27/17 03:11 Dose: 30 ml Amitriptyline HCl (Elavil) 25 mg PO HS [facility] PRN Reason: Protocol Stop: 11/23/17 21:16 Last Admin: 09/26/17 21:10 Dose: 25 mg Benztropine Mesylate (Cogentin) 1 mg PO BID [facility] Stop: 11/24/17 08:59 Last Admin: 09/27/17 09:20 Dose: 1 mg Diphenhydramine HCl (Benadryl) 25 mg PO Q6HR PRN PRN Reason: Itching Stop: 11/24/17 00:12 Last Admin: 09/27/17 01:41 Dose: 25 mg Ferrous Sulfate (Iron) 325 mg PO DAILY [facility] Stop: 11/24/17 08:59 Last Admin: 09/27/17 09:20 Dose: 325 mg Glucagon (Glucagen) 1 mg IVP PRN PRN PRN Reason: BS < 60 Stop: 11/23/17 22:14 Hydrocortisone (Hydrocortisone 1%) 1 appl TP BID [facility] Stop: 11/24/17 16:59 Last Admin: 09/27/17 09:22 Dose: 1 appl Hydromorphone HCl (Dilaudid) 2 mg IVP Q3HR PRN PRN Reason: Severe Pain Stop: 11/24/17 18:30 Last Admin: 09/25/17 21:03 Dose: 2 mg Hydromorphone HCl (Dilaudid) 1 mg IVP Q3HR PRN PRN Reason: Pain (Moderate) Stop: 11/24/17 18:39 Last Admin: 09/27/17 09:27 Dose: 1 mg Hydroxyzine HCl (Atarax) 50 mg PO TID [facility] PRN Reason: Protocol Stop: 11/24/17 20:59 Last Admin: 09/27/17 09:21 Dose: 50 mg Lactulose (Cephulac) 60 gm PO QID [facility] Stop: 11/23/17 21:16 Last Admin: 09/27/17 09:20 Dose: 60 gm Lisinopril (Zestril) 20 mg PO DAILY [facility] Stop: 11/24/17 08:59 Last Admin: 09/27/17 09:20 Dose: 20 mg Lorazepam (Ativan) 1 mg PO Q6H PRN; Protocol PRN Reason: Anxiety Stop: 11/23/17 21:16 Last Admin: 09/27/17 06:06 Dose: 1 mg Methylprednisolone Sodium Succinate (Solu-Medrol) 40 mg IVP Q12HR [facility] Stop: 11/26/17 08:59 Last Admin: 09/27/17 09:21 Dose: 40 mg Miscellaneous (Vte Chemical Prophylaxis Screen/ Admission) 1 ea [facility] PRN PRN PRN Reason: PROTOCOL Stop: 11/24/17 10:59 Multivitamins/Vitamin C (Theragran) 1 tab PO DAILY [facility] Stop: 11/24/17 08:59 Last Admin: 09/27/17 09:20 Dose: 1 tab Pantoprazole Sodium (Protonix) 40 mg PO QDAC [facility] Stop: 11/23/17 22:14 Last Admin: 09/27/17 06:46 Dose: 40 mg Propylene Glycol (Systane Ophth Soln) 1 drop EACH EYE QID [facility] Stop: 11/23/17 22:14 Last Admin: 09/27/17 09:31 Dose: Not Given Quetiapine Fumarate (Seroquel) 50 mg PO HS [facility] PRN Reason: Protocol Stop: 11/23/17 21:16 Last Admin: 09/26/17 21:10 Dose: 50 mg Sodium Chloride (Nacl Tab) 2 gm PO DAILY [facility] Stop: 11/24/17 08:59 Last Admin: 09/27/17 09:20 Dose: 2 gm Zolpidem Tartrate (Ambien) 5 mg PO HS PRN PRN Reason: Insomnia Stop: 11/23/17 21:16 General: No acute distress HEENT: Atraumatic Cardiovascular: Regular rate, Normal S1, Normal S2 - Procedures Procedures: Procedures Procedure Code Date EXCISION OF DUODENUM, ENDO, DIAGN [id number] 06/06/17 EXCISION OF STOMACH, ENDO, DIAGN [id number] 06/06/17 EXCISION OF TRANSVERSE COLON, ENDO [id number] 06/06/17 Assessment/Plan - Problem List Patient Problems: All Active Problems Asthma (Acute) J45.909 CAD (coronary artery disease) (Acute) I25.10 COPD (chronic obstructive pulmonary disease) (Acute) HTN (hypertension) (Acute) I10 Hepatitis C virus carrier state (Acute) Neuropathy (Acute) G62.9 Osteoarthritis (Acute) M19.90 Thrombocytopenia (Acute) D69.6 - Plan Plan: cpm
--- NOTE | 2017-09-27 12:36 | General Progress Note ---
Subjective - Review of Systems Service Date: 09/27/17 Subjective: less itching Objective - Results Result Diagrams: 09/27/17 06:36 09/27/17 06:36 Recent Labs: Laboratory Last Values WBC 5.7 Th/cmm (4.8-10.8) 09/27/17 06:36 RBC 3.17 Mil/cmm (3.80-5.80) L 09/27/17 06:36 Hgb 9.3 gm/dL (12-16) L 09/27/17 06:36 Hct 28.2 % (41.0-60) L 09/27/17 06:36 MCV 89.1 fl (80-99) 09/27/17 06:36 MCH 29.3 pg (27.0-31.0) 09/27/17 06:36 MCHC Differential 32.9 pg (28.0-36.0) 09/27/17 06:36 RDW 15.6 % (11.5-20.0) 09/27/17 06:36 Plt Count 54 Th/cmm (150-400) L 09/27/17 06:36 MPV 8.1 fl 09/27/17 06:36 Neutrophils % 74.2 % (40.0-80.0) 09/27/17 06:36 Band Neutrophils % 0 % (0-10) 09/24/17 20:20 Lymphocytes % 19.8 % (20.0-50.0) L 09/27/17 06:36 Monocytes % 5.9 % (2.0-10.0) 09/27/17 06:36 Eosinophils % 0.1 % (0.0-5.0) 09/27/17 06:36 Basophils % 0.0 % (0.0-2.0) 09/27/17 06:36 Neutrophils (Manual) 33 % (40-80) L 09/24/17 20:20 Lymphocytes 43 % (20-50) 09/24/17 20:20 Monocytes 10 % (2-10) 09/24/17 20:20 Eosinophils 14 % (0-5) H 09/24/17 20:20 Basophils 0 % (0-3) 09/24/17 20:20 Platelet Estimate DECREASED PLATELETS (NORMAL) 09/24/17 20:20 Platelet Morphology NORMAL (NORMAL) 09/24/17 20:20 RBC Morph Micro Appear NORMAL (NORMAL) 09/24/17 20:20 PT 13.9 SECONDS (9.5-11.5) H 09/24/17 20:20 INR 1.32 (0.5-1.4) 09/24/17 20:20 Sodium 136 mEq/L (136-145) 09/27/17 06:36 Potassium 4.0 mEq/L (3.5-5.1) 09/27/17 06:36 Chloride 109 mEq/L (98-107) H 09/27/17 06:36 Carbon Dioxide 17.3 mEq/L (21.0-31.0) L 09/27/17 06:36 Anion Gap 13.7 (7.0-16.0) 09/27/17 06:36 BUN 11 mg/dL (7-25) 09/27/17 06:36 Creatinine 0.7 mg/dL (0.7-1.3) 09/27/17 06:36 Est GFR ( Amer) > 60.0 ml/min (>90) 09/27/17 06:36 Est GFR (Non-Af Amer) > 60.0 ml/min 09/27/17 06:36 BUN/Creatinine Ratio 15.7 09/27/17 06:36 Glucose 140 mg/dL (70-105) H 09/27/17 06:36 Calcium 8.8 mg/dL (8.6-10.3) 09/27/17 06:36 Total Bilirubin 0.6 mg/dL (0.3-1.0) 09/24/17 20:20 AST 55 U/L (13-39) H 09/24/17 20:20 ALT 22 U/L (7-52) 09/24/17 20:20 Alkaline Phosphatase 71 U/L (34-104) 09/24/17 20:20 Ammonia 81 umol/L (16-53) H 09/25/17 04:50 Total Protein 5.2 gm/dL (6.0-8.3) L 09/24/17 20:20 Albumin 2.1 gm/dL (4.2-5.5) L 09/24/17 20:20 Globulin 3.1 gm/dL 09/24/17 20:20 Albumin/Globulin Ratio 0.7 (1.0-1.8) L 09/24/17 20:20 Scabies Examination NEGATIVE FOR SCABIES 09/25/17 16:15 SKINNY Preparation TNP 09/25/17 16:15 - Physical Exam Vitals and I&O: Vital Signs Temp 97.2 F 09/27/17 12:00 Pulse 78 09/27/17 12:00 Resp 18 09/27/17 12:00 BP 115/65 09/27/17 12:00 Pulse Ox 95 09/27/17 12:00 Intake & Output 09/26/17 09/27/17 09/27/17 18:59 06:59 18:59 Intake Total 800 Balance 800 Weight (lbs) 98.883 kg 98.883 kg Intake: Oral 800 Other: # Voids 3 # Bowel Movements 0 Weight Source Bedscale Bedscale Active Medications: Current Medications Acetaminophen/Hydrocodone Bitart ([place] 5mg/325mg) 1 tab PO Q8H PRN PRN Reason: PAIN Stop: 11/23/17 21:16 Last Admin: 09/27/17 01:38 Dose: 1 tab Al Hydrox/Mg Hydrox/Simethicone (Maalox) 30 ml PO Q6HR PRN PRN Reason: GI DISTRESS Stop: 11/23/17 22:00 Last Admin: 09/27/17 03:11 Dose: 30 ml Amitriptyline HCl (Elavil) 25 mg PO HS [facility] PRN Reason: Protocol Stop: 11/23/17 21:16 Last Admin: 09/26/17 21:10 Dose: 25 mg Benztropine Mesylate (Cogentin) 1 mg PO BID [facility] Stop: 11/24/17 08:59 Last Admin: 09/27/17 09:20 Dose: 1 mg Diphenhydramine HCl (Benadryl) 25 mg PO Q6HR PRN PRN Reason: Itching Stop: 11/24/17 00:12 Last Admin: 09/27/17 12:14 Dose: 25 mg Ferrous Sulfate (Iron) 325 mg PO DAILY [facility] Stop: 11/24/17 08:59 Last Admin: 09/27/17 09:20 Dose: 325 mg Glucagon (Glucagen) 1 mg IVP PRN PRN PRN Reason: BS < 60 Stop: 11/23/17 22:14 Hydrocortisone (Hydrocortisone 1%) 1 appl TP BID [facility] Stop: 11/24/17 16:59 Last Admin: 09/27/17 09:22 Dose: 1 appl Hydromorphone HCl (Dilaudid) 2 mg IVP Q3HR PRN PRN Reason: Severe Pain Stop: 11/24/17 18:30 Last Admin: 09/25/17 21:03 Dose: 2 mg Hydromorphone HCl (Dilaudid) 1 mg IVP Q3HR PRN PRN Reason: Pain (Moderate) Stop: 11/24/17 18:39 Last Admin: 09/27/17 09:27 Dose: 1 mg Hydroxyzine HCl (Atarax) 50 mg PO TID [facility] PRN Reason: Protocol Stop: 11/24/17 20:59 Last Admin: 09/27/17 09:21 Dose: 50 mg Lactulose (Cephulac) 60 gm PO QID [facility] Stop: 11/23/17 21:16 Last Admin: 09/27/17 12:15 Dose: Not Given Lisinopril (Zestril) 20 mg PO DAILY [facility] Stop: 11/24/17 08:59 Last Admin: 09/27/17 09:20 Dose: 20 mg Lorazepam (Ativan) 1 mg PO Q6H PRN; Protocol PRN Reason: Anxiety Stop: 11/23/17 21:16 Last Admin: 09/27/17 06:06 Dose: 1 mg Methylprednisolone Sodium Succinate (Solu-Medrol) 40 mg IVP Q12HR [facility] Stop: 11/26/17 08:59 Last Admin: 09/27/17 09:21 Dose: 40 mg Miscellaneous (Vte Chemical Prophylaxis Screen/ Admission) 1 ea [facility] PRN PRN PRN Reason: PROTOCOL Stop: 11/24/17 10:59 Multivitamins/Vitamin C (Theragran) 1 tab PO DAILY [facility] Stop: 11/24/17 08:59 Last Admin: 09/27/17 09:20 Dose: 1 tab Pantoprazole Sodium (Protonix) 40 mg PO QDAC [facility] Stop: 11/23/17 22:14 Last Admin: 09/27/17 06:46 Dose: 40 mg Propylene Glycol (Systane Ophth Soln) 1 drop EACH EYE QID [facility] Stop: 11/23/17 22:14 Last Admin: 09/27/17 12:14 Dose: 1 drop Quetiapine Fumarate (Seroquel) 50 mg PO HS [facility] PRN Reason: Protocol Stop: 11/23/17 21:16 Last Admin: 09/26/17 21:10 Dose: 50 mg Sodium Chloride (Nacl Tab) 2 gm PO DAILY [facility] Stop: 11/24/17 08:59 Last Admin: 09/27/17 09:20 Dose: 2 gm Zolpidem Tartrate (Ambien) 5 mg PO HS PRN PRN Reason: Insomnia Stop: 11/23/17 21:16 General: Alert, No acute distress HEENT: Atraumatic Cardiovascular: Regular rate, Normal S1, Normal S2 Abdomen: Soft Extremities: Other (erythema resolved) - Procedures Procedures: Procedures Procedure Code Date EXCISION OF DUODENUM, ENDO, DIAGN [id number] 06/06/17 EXCISION OF STOMACH, ENDO, DIAGN [id number] 06/06/17 EXCISION OF TRANSVERSE COLON, ENDO [id number] 06/06/17 Assessment/Plan - Problem List Patient Problems: All Active Problems Asthma (Acute) J45.909 CAD (coronary artery disease) (Acute) I25.10 COPD (chronic obstructive pulmonary disease) (Acute) HTN (hypertension) (Acute) I10 Hepatitis C virus carrier state (Acute) Neuropathy (Acute) G62.9 Osteoarthritis (Acute) M19.90 Thrombocytopenia (Acute) D69.6 - Assessment Assessment: * Cirrhosis * Splenomegaly * Chronic thrombocytopenia, stable * s/p skin allergic reaction, better
[2017-09-27 13:16] LABS: FERRITIN 659 ng/mL (30-400); IRON LC 47 ug/dL (38-169); TIBC (LC) 158 ug/dL (250-450); UIBC 111 ug/dL (111-343)
[2017-09-27] MEDS: HYDROmorphone 2 mg/mL 1mL Vial IVP PRN ×2 (13:23→20:05)
== END 2017-09-27 20:25 | DRG 603 ==
LOC: ER 19:37 → TELE 20:44
PROVIDERS: ADMIT Internal Medicine; ATTEND Internal Medicine
DX: L03.114 Cellulitis of left upper limb (principal); R64 Cachexia; D69.49 Other primary thrombocytopenia; F03.90 Unspecified dementia, unspecified severity, without behavioral disturbance, psychotic disturbance, mood disturbance, and anxiety; G62.9 Polyneuropathy, unspecified; F20.9 Schizophrenia, unspecified; R16.1 Splenomegaly, not elsewhere classified; F29 Unspecified psychosis not due to a substance or known physiological condition; K74.60 Unspecified cirrhosis of liver; I25.10 Atherosclerotic heart disease of native coronary artery without angina pectoris; B18.2 Chronic viral hepatitis C; M19.90 Unspecified osteoarthritis, unspecified site; X58.XXXA Exposure to other specified factors, initial encounter; F41.9 Anxiety disorder, unspecified; F31.9 Bipolar disorder, unspecified; J44.9 Chronic obstructive pulmonary disease, unspecified; T78.49XA Other allergy, initial encounter; L03.113 Cellulitis of right upper limb; I10 Essential (primary) hypertension; E78.5 Hyperlipidemia, unspecified; Z82.49 Family history of ischemic heart disease and other diseases of the circulatory system; Z80.8 Family history of malignant neoplasm of other organs or systems; Z87.81 Personal history of (healed) traumatic fracture; Z79.899 Other long term (current) drug therapy; Z86.14 Personal history of Methicillin resistant Staphylococcus aureus infection; Y92.89 Other specified places as the place of occurrence of the external cause; Z87.891 Personal history of nicotine dependence
CPT/HCPCS: 36415-UA; 71045-TC; 80048-TC; 80053-TC; 82140-TC; 82728-90; 83540-90; 83550-90; 85007-TC; 85025-TC; 85027-TC; 85610-TC; 87220-90; 93970-TC-50; 96375; J1170; J1200; J2920; J2930; J3370; J7040; Z7610

== ENCOUNTER 2017-11-01 22:42 | Inpatient (IN) | payer MEDICARE, MEDICAID ==
--- NOTE | 2017-11-01 23:49 | ED Physician Chart ---
ED Chief Complaint/HPI - Patient Information Date Seen:: 11/01/17 Time Seen:: 22:45 Chief Complaint:: AMS History of Present Illness:: onset x 2 days of ALOC and AMS with abnormal lab tests today; no report of trauma, H/as, S/T, neck pain, C/P, SOB, Abd. Pain, A/N/V/D/C, fever, chills, or urinary s/s Allergies:: Allergies Allergy/AdvReac Type Severity Reaction Status Date / Time No Known Allergies Allergy Verified 09/24/17 19:50 Historian:: Patient, EMS Review:: Nurse's Note Reviewed, Old Chart Reviewed, EMS run form Reviewed ED Review of Systems - Review of Systems General/Constitutional: Fever, No chills, No weight loss, No weakness, No diaphoresis, No edema, No loss of appetite Skin: No skin lesions, No rash, No bruising Head: No headache, No light-headedness Eyes: No loss of vision, No pain, No diplopia ENT: No earache, No nasal drainage, No sore throat, No tinnitus Neck: No neck pain, No swelling, No thyromegaly, No stiffness, No mass noted Cardio Vascular: No chest pain, No palpitations, No PND, No orthopnea, No edema Pulmonary: No SOB, No cough, No sputum, No wheezing GI: No nausea, No vomiting, No diarrhea, No pain, No melena, No hematochezia, No constipation, No hematemesis G/U: No dysuria, No frequency, No hematuria, No nacturia Musculoskeletal: No bone or joint pain, No back pain, No muscle pain Endocrine: No polyuria, No polydipsia Psychiatric: Prior psych history, No depression, Anxiety, No suicidal ideation, No homicidal ideation, No auditory hallucination, No visual hallucination Hematopoietic: No bruising, No lymphadenopathy Allergic/Immuno: No urticaria, No angioedema Neurological: No syncope, No focal symptoms, No weakness, No paresthesia, No headache, No seizure, No dizziness, Confusion, No vertigo ED Past Medical History - Past Medical History Obtainable: Yes Past Medical History: HTN, Asthma/COPD, Dyslipidemia, PUD/GERD, Dementia, Other (Hepatitis C; Thrombocytopenia; Neuropathy; Encephalopathy) Family History: HTN Social History: Smoker, Alcohol, No Drug Use, Single, Care Facility Surgical History: None Psychiatricy History: Dementia Medication: Reviewed Family Medical History - Family Member Mother History Unknown: Yes Ethnicity: Unknown Living Status: Hx Family Cancer: Yes Hx Family Coronary Artery Disease: No Hx Family Congestive Heart Failure: No Hx Family Hypertension: No Hx Family Stroke: No Hx Family Diabetes: No Hx Family Seizures: No Hx Family Dementia: No Hx Family AIDS: No Hx Family HIV: No Hx Family COPD: No Hx Family Hepatitis: No Hx Family Psychiatric Problems: No Hx Family Tuberculosis: No unknown History Unknown: Yes Ethnicity: Non- Living Status: Hx Family Cancer: No Hx Family Coronary Artery Disease: No Hx Family Congestive Heart Failure: No Hx Family Hypertension: Yes Hx Family Stroke: No Hx Family Diabetes: No Hx Family Seizures: No Hx Family Dementia: No Hx Family AIDS: No Hx Family HIV: No Hx Family COPD: No Hx Family Hepatitis: No Hx Family Psychiatric Problems: No Hx Family Tuberculosis: No Father History Unknown: Yes Ethnicity: Unknown Living Status: Hx Family Cancer: No Hx Family Coronary Artery Disease: No Hx Family Congestive Heart Failure: No Hx Family Hypertension: No Hx Family Stroke: No Hx Family Diabetes: No Hx Family Seizures: No Hx Family Dementia: No Hx Family AIDS: No Hx Family HIV: No Hx Family COPD: No Hx Family Hepatitis: No Hx Family Psychiatric Problems: No Hx Family Tuberculosis: No Sister History Unknown: Yes Ethnicity: Living Status: ED Physical Exam - Physical Examination General/Constitutional: Awake, Well-developed, well-nourished, Alert, No distress, GCS 15, Non-toxic appearing, Ambulatory Head: Atraumatic Eyes: Lids, conjuctiva normal, PERRL, EOMI Skin: Nl inspection, No rash, No skin lesions, No ecchymosis, No lymphadenopathy Other Skin comments:: Poor Turgor with Dry MM ENMT: External ears, nose nl, TM canals nl, Nasal exam nl, Lips, teeth, gums nl , Oropharynx nl, Tonsils nl Neck: Nontender, Full ROM w/o pain, No JVD, No nuchal rigidity, No bruit, No mass, No stridor Respiratory: Nl effort/Exclusion, Clear to Auscultation, No Wheeze/Rhonchi/Rales Cardio Vascular: RRR, No murmur, gallop, rubs, NL S1 S2, Carotid/Femoral/Distal pulses equal bilaterally GI: No tenderness/rebounding/guarding, No organomegaly, No hernia, Normal BS's, Nondistended, No mass/bruits, No McBurney tenderness : No CVA tenderness Extremities: No tenderness or effusion, Full ROM, normal strength in all extremities, No edema, Normal digits & nails Neuro/Psych: Alert/oriented, DTR's symmetric, Normal sensory exam, Normal motor strength, Judgement/insight normal, Mood normal, Normal gait, No focal deficits Misc: Normal back, No paraspinal tenderness ED Labs/Radiology/EKG Results - Lab Results Comments:: WBC: 3.4; H/H: 9.8/29;; Na+: 131; K+: 3.3; INR: 1.44 - EKG Interpretations EKG Time:: 23:55 Rate & Rhythm: 80; NSR Comments:: non-specific st-t changes ED Septic Shock - . Is Septic Shock (SBP<90, OR Lactate>4 mmol\L) present?: No ED Reassessment (Disposition) - Reassessment Reassessment Condition:: Improved - Diagnosis Diagnosis:: Dx: Hyponatremia; Hypokalemia; Dehydration; Anemia; Dementia; Coagulopathy; Leukopenia; Sepsis - Aftercare/Follow up Instructions Aftercare/Follow-Up Instructions:: Counseled pt regarding lab results/diagnosis & need follow up, Counseled pt & family regarding lab results/diagnosis & need follow up - Patient Disposition Discharge/Transfer:: Acute Care w/in this hosp Accepting Physician:: Dr. Megan Chand Time Called:: 99 Time Responded:: 01:00 Admitted to:: Med/Surg Spoke to:: Dr. Megan Chand Admitting Medical Physician:: Dr. Megan Chand Condition at Disposition:: Stable, Improved
[2017-11-02 01:43] LABS: EOSINOPHILE ABSOLUTE 0.3 Th/cmm (0.1-0.4); HEMOGLOBIN 9.8 gm/dL (12-16); MONOCYTE ABSOLUTE 0.3 Th/cmm (0.3-1.0); NEUTROPHILE ABSOLUTE 1.4 Th/cmm (1.8-8.0); RED BLOOD COUNT 3.35 Mil/cmm (3.80-5.80); RED CELL DISTRIBUTION WIDTH 15.4 % (11.5-20.0)
[2017-11-02 01:46] LABS: % EOSINOPHILS 7.9 % (0.0-5.0); % LYMPHOCYTES 40.2 % (20.0-50.0); % MONOCYTES 8.3 % (2.0-10.0); % NEUTROPHILS 43.6 % (40.0-80.0); LYMPHOCYTE ABSOLUTE 1.4 Th/cmm (1.5-3.0); MEAN CELL VOLUME 86.6 fl (80-99); MEAN CORPUSCULAR HEMOGLOBIN 29.1 pg (27.0-31.0); MEAN CORPUSCULAR HGB CONC 33.7 pg (28.0-36.0); MEAN PLATELET VOLUME 8.6 fl
[2017-11-02 01:50] LABS: WHITE BLOOD COUNT 3.4 Th/cmm (4.8-10.8)
[2017-11-02 01:56] LABS: ALB/GLOB RATIO 0.5 (1.0-1.8); ALBUMIN 2.4 gm/dL (4.2-5.5); ALKALINE PHOSPHATASE 81 U/L (34-104); BILIRUBIN,TOTAL 1.7 mg/dL (0.3-1.0); BUN - UREA NITROGEN 3 mg/dL (7-25); CALCIUM SERUM 8.3 mg/dL (8.6-10.3); CHLORIDE 103 mEq/L (98-107); CREATININE KINASE 33 U/L (30-223); GLUCOSE 112 mg/dL (70-105); POTASSIUM SERUM 3.3 mEq/L (3.5-5.1); SGOT 61 U/L (13-39); SGPT/ALT 31 U/L (7-52); SODIUM SERUM 131 mEq/L (136-145); TOTAL PROTEIN,SERUM 6.9 gm/dL (6.0-8.3)
[2017-11-02 01:58] LABS: TROP I 0.02 ng/mL (0.01-0.05)
[2017-11-02 02:09] LABS: INR 1.44 (0.5-1.4); PROTHROMBIN TIME (TEST) 15.3 SECONDS (9.5-11.5)
[2017-11-02 02:12] LABS: PLATELET COUNT 80 Th/cmm (150-400)
[2017-11-02] MEDS ORDERED: Potassium Chloride 20 mEq ER Tab PO ONE ×2 (02:31→03:07)
[2017-11-02] MEDS ORDERED: Levofloxacin 500mg/100mL 500 MG/100 ML BAG IV ONE ×2 (02:33→03:07)
[2017-11-02 03:16] LABS: ANION GAP 8.3 (7.0-16.0); CREATININE - SERUM 0.6 mg/dL (0.7-1.3); GFR AFRICAN-AMERICAN > 60.0 ml/min (>90); GFR NON AFRICAN-AMERICAN > 60.0 ml/min
[2017-11-02] MEDS ORDERED: Pneumococcal Vaccine 0.5 mL Vial IM ONE (06:49)
--- NOTE | 2017-11-02 13:10 | History & Physical ---
ADMIT DATE: 11/02/2017 CHIEF COMPLAINT: Altered mental status. HISTORY OF PRESENT ILLNESS: The patient is a 66-year-old male with past medical history of hepatitis C, cirrhosis, hypertension, asthma, COPD, dyslipidemia, peptic ulcer disease, GERD, thrombocytopenia, neutropenia, encephalopathy, chronic pain syndrome, history of left hip ORIF, history of MRSA infection of the prosthesis many years ago which was treated with vancomycin appropriately and no symptoms for that. Brought from the nursing facility for change in mental status with abnormal lab reports. On initial evaluation, the patient was afebrile with temperature 98.2 degrees Fahrenheit and WBC count 3400. His hemoglobin was 9.8 and platelets were 80,000. His potassium was 3.3. Currently, the patient is behaving appropriately. PAST MEDICAL HISTORY: As mentioned above. The patient has COPD, asthma, hypertension, coronary artery disease, osteoarthritis, history of left hip ORIF infected with MRSA, treated well with vancomycin, doing well, no symptoms now; chronic hepatitis C, cirrhosis, chronic pain syndrome, GERD, peptic ulcer disease. ALLERGIES: NKDA. MEDICATIONS: As per medication reconciliation sheet. SOCIAL HISTORY: The patient lives in a nursing facility. No history of smoking, alcohol or drug use at this time. REVIEW OF SYSTEMS: GENERAL: The patient has no fever, no chills. HEENT: No diplopia. No photophobia. No sore throat. RESPIRATORY: No cough. No shortness of breath. CARDIOVASCULAR: No chest pain or palpitation. GASTROINTESTINAL: No nausea. No vomiting. No diarrhea. No constipation. GENITOURINARY: No dysuria. NEUROLOGIC: No headache. No dizziness. No focal weakness. SKIN: No rash. MUSCULOSKELETAL: The patient has whole body pain. PHYSICAL EXAMINATION: CURRENT VITAL SIGNS: Temperature is 97.6 degrees Fahrenheit, pulse 77, respirations 19, blood pressure 105/77. GENERAL: The patient is comfortable. HEENT: Head is normocephalic, atraumatic. Oral cavity moist. Derwood tongue. Eyes: Pallor is present. No icterus. Pupils, PERRLA. EOMI. NECK: Supple. No JVD. No carotid bruit. Trachea in midline. CHEST: Bilateral breath sounds. No crackles or wheezing. HEART: S1, S2 within normal limits. Regular rhythm. No murmur. No gallop. ABDOMEN: Soft, nontender, nondistended. Bowel sounds present. EXTREMITIES: No cyanosis. No clubbing. No edema. NEUROLOGICAL: Alert and awake, but sleeping at this time. LABORATORY DATA: His current lab shows WBC count 3400, hemoglobin 9.8, hematocrit 29, platelets are 80,000. INR 1.44. Sodium is 131, potassium 3.3, chloride 103, bicarbonate is 23, BUN is 3, creatinine is 0.62, glucose is 112. Lactic acid is 1.5. AST 61, ALT is 31. IMPRESSION: 1. Altered mental status, rule out hepatic encephalopathy, improving. 2. Anemia, stable hemoglobin and hematocrit. 3. Neutropenia, stable. 4. Thrombocytopenia, stable, secondary to cirrhosis. 5. Hepatitis C. 6. Hypertension. 7. Cirrhosis. 8. Asthma, chronic obstructive pulmonary disease. 9. Dyslipidemia. 10. Peptic ulcer disease, gastroesophageal reflux disease. 11. Dementia. 12. Neuropathy. 13. Chronic pain syndrome. 14. History of methicillin-resistant Staphylococcus aureus infection of the left hip. Left hip prosthesis treated, no signs and symptoms of infection at this time. 15. History of open reduction and internal fixation of the left hip. PLAN: Continue same treatment at this time. Consult Dr. Langston for pancytopenia. Consult Dr. Estuardo Chand for LVH and hypertension. Consult Dr. Ashwin Chand for COPD. Check ammonia level. If it is normal, we will initiate discharge plan. ADDENDUM: We will check ammonia level. JOB# [id number] CASE
--- NOTE | 2017-11-02 13:28 | Consultation ---
DATE OF CONSULTATION: 11/02/2017 HEMATOLOGY AND ONCOLOGY CONSULTATION REFERRING PHYSICIAN: Dr. Justino Chand REASON FOR CONSULTATION: Pancytopenia. HISTORY OF PRESENT ILLNESS: The patient is a 66-year-old male who is well known to me from previous hospitalization. He was admitted at this time with change in mental status, initially admitted to the ICU and then transferred to the floor. The patient has pancytopenia, therefore, I was asked to evaluate. PAST MEDICAL HISTORY: Hepatitis C, cirrhosis, splenomegaly, hypersplenism, multiple admissions for encephalopathy, hypertension, COPD, dyslipidemia, dementia. SOCIAL HISTORY: Smoking and alcohol drinking. PAST SURGICAL HISTORY: None. MEDICATIONS: Reviewed. PHYSICAL EXAMINATION: GENERAL: The patient is arousable, responds to verbal stimuli, anxious. VITAL SIGNS: Blood pressure is stable. HEENT: Atraumatic. NECK: Supple. CHEST: Good air entry. ABDOMEN: Obese, splenomegaly. There is small hematoma in the left buttock. EXTREMITIES: 1+ edema in both lower extremities. LABORATORY AND DIAGNOSTIC DATA: White count 3.4, hemoglobin 9.8, platelets 80. INR 1.44. Potassium 3.3, creatinine 0.6, bilirubin 1.7, AST 61, ALT 31, albumin 2.4. ASSESSMENT: 1. Pancytopenia secondary to hypersplenism. 2. Hepatitis C cirrhosis. 3. Altered level of consciousness and secondary to hepatic encephalopathy. PLAN: No need for transfusion. This is the baseline cytopenia for the patient. We will start lactulose, thiamine, folic acid, multivitamin supplementation and monitor ammonia level and blood count. He was given potassium supplementation for the hypokalemia. Thank you, Dr. Chand, for the opportunity to participate in the care of this interesting case for you. JOB# [id number]
[2017-11-02] MEDS: Multivitamin Tab PO SCH (13:38)
[2017-11-02] MEDS: Lactulose 10 Gm/15 mL 30mL UDC PO SCH ×2 (13:39→21:44)
[2017-11-02] MEDS: Albuterol/Ipratropium Neb 3 ML AERS HHN SCH ×2 (15:02→19:11)
[2017-11-02] MEDS ORDERED: Hydrocodone/APAP 5mg/325mg Tab PO ONE (16:36)
[2017-11-02] MEDS: Budesonide 0.5 Mg/2 mL Ud HHN SCH (19:12)
[2017-11-02] MEDS ORDERED: HYDROmorphone 1 mg/mL 1mL Syr ONE (21:30)
[2017-11-02] MEDS: HYDROmorphone 1 mg/mL 1mL Syr IVP PRN (21:33)
--- NOTE | 2017-11-03 02:30 | Consultation ---
DATE OF CONSULTATION: 11/02/2017 PULMONARY AND SLEEP MEDICINE CONSULTATION REASON FOR CONSULTATION: Shortness of breath with possibly underlying COPD. CONSULT NOTE: This is a 66-year-old gentleman who basically initially was admitted because of altered state of mind. The patient is still sleepy, answers the questions yes and no though nodding his head. It is hard to get out a detailed history except for reviewing the patient's medical records on this admission. The patient does carry history of hypertension, asthma and COPD, dyslipoproteinemia, also history of chronic encephalopathy, chronic pain syndrome, also history of ORIF of left hip and also history of MRSA infection of prosthesis. Unfortunately, a meaningful history is not available or very difficult to available. PAST MEDICAL HISTORY: Asthma, COPD, history of coronary artery disease, history of MRSA of left hip prosthesis, history of hepatitis C, history of chronic pain syndrome. ALLERGIC HISTORY: Nil. SOCIAL HISTORY: The patient lives in a nursing facility. No history of smoking. PHYSICAL EXAMINATION: GENERAL: This is an elderly looking gentlemen, opens eyes, but other meaningful history of the patient cannot be available. VITAL SIGNS: T-max 97.6, blood pressure 105/77, saturation 100% on 2 liters per minute. HEENT: Head is essentially unremarkable. Pupils appear to be equal and reactive to light. Conjunctivae are pallor. LUNGS: Shows occasional rhonchi with diminished air entry. HEART: Regular. ABDOMEN: Soft, nontender. EXTREMITIES: Shows no peripheral edema. PERTINENT LABORATORY STUDIES: White count is 3.4, hemoglobin 9.8. PT/INR is okay. Electrolytes show sodium 131, potassium is 3.3 and bilirubin 1.7 with ALT of 61. ASSESMENT: The patient has chronic obstructive pulmonary disease, which is stable though; altered state of mind, exact etiology is not clear, question of pain or possibly substance abuse, though very unlikely in view of living in the skilled nursing, but cannot be totally ruled out with history of medical problems. Otherwise, has a past smoking history, heavy smoker, also history of alcoholism in the past and also history of possibly dementia. IMPRESSION: The patient has possibly chronic obstructive pulmonary disease with altered state of mind, exact etiology is not clear-cut. PLANS AND SUGGESTIONS: We will go ahead and review the chest x-ray. We will go ahead and give breathing treatment, follow up blood gases and see how his mental status does and go from there. JOB# [id number]
[2017-11-03] MEDS ORDERED: HYDROmorphone 1 mg/mL 1mL Syr ONE (03:51)
[2017-11-03] MEDS: HYDROmorphone 1 mg/mL 1mL Syr IVP PRN (03:56)
[2017-11-03 06:08] LABS: % BASOPHILS 1.4 % (0.0-2.0); % EOSINOPHILS 8.5 % (0.0-5.0); % LYMPHOCYTES 36.1 % (20.0-50.0); EOSINOPHILE ABSOLUTE 0.3 Th/cmm (0.1-0.4); HEMATOCRIT 25.4 % (41.0-60); HEMOGLOBIN 8.6 gm/dL (12-16); LYMPHOCYTE ABSOLUTE 1.3 Th/cmm (1.5-3.0); MEAN CELL VOLUME 86.3 fl (80-99); MEAN CORPUSCULAR HEMOGLOBIN 29.2 pg (27.0-31.0); MEAN CORPUSCULAR HGB CONC 33.8 pg (28.0-36.0); MEAN PLATELET VOLUME 8.2 fl; MONOCYTE ABSOLUTE 0.5 Th/cmm (0.3-1.0); NEUTROPHILE ABSOLUTE 1.4 Th/cmm (1.8-8.0); PLATELET COUNT 38 Th/cmm (150-400); RED BLOOD COUNT 2.94 Mil/cmm (3.80-5.80); RED CELL DISTRIBUTION WIDTH 15.4 % (11.5-20.0)
[2017-11-03 06:09] LABS: WHITE BLOOD COUNT 3.5 Th/cmm (4.8-10.8)
[2017-11-03 06:25] LABS: ALB/GLOB RATIO 0.5 (1.0-1.8); ALBUMIN 1.9 gm/dL (4.2-5.5); ALKALINE PHOSPHATASE 60 U/L (34-104); BILIRUBIN,DIRECT 0.54 mg/dL (0.0-0.2); BILIRUBIN,TOTAL 1.3 mg/dL (0.3-1.0); BUN - UREA NITROGEN 6 mg/dL (7-25); CALCIUM SERUM 7.9 mg/dL (8.6-10.3); CHLORIDE 106 mEq/L (98-107); CREATININE - SERUM 0.6 mg/dL (0.7-1.3); GFR AFRICAN-AMERICAN > 60.0 ml/min (>90); GFR NON AFRICAN-AMERICAN > 60.0 ml/min; GLUCOSE 86 mg/dL (70-105); SGOT 38 U/L (13-39); SGPT/ALT 20 U/L (7-52); SODIUM SERUM 132 mEq/L (136-145); TOTAL PROTEIN,SERUM 5.5 gm/dL (6.0-8.3)
[2017-11-03] MEDS: Albuterol/Ipratropium Neb 3 ML AERS HHN SCH ×4 (06:49→18:55)
[2017-11-03] MEDS: Budesonide 0.5 Mg/2 mL Ud HHN SCH ×2 (07:01→18:55)
--- NOTE | 2017-11-03 07:51 | Consultation ---
DATE OF CONSULTATION: 11/03/2017 PSYCHIATRIC CONSULT PATIENT'S AGE: 66 SEX: Male. PHYSICIAN: Dr. Justino Chand. NURSE ORTHOPEDIC: Dr. Forte TYPE OF THE REPORT: Psychiatric consult. REASON FOR THE CONSULT: "I am going through withdrawal of Dilaudid." HISTORY OF PRESENT ILLNESS: The patient is a 66-year-old male who lives in [facility]. The patient was admitted to the hospital because of 2 days of altered of consults. The patient interviewed and chart reviewed and discussed the patient's condition with the staff and reviewed records and labs. The patient said that he has been using Dilaudid because of pain in his stomach and different areas of his body. He also said that he has been feeling severely depressed lately. He also has been feeling hopeless and helpless, especially with the increase in his pain. The patient has been also complaining of leg cramps. He denies any thoughts of suicide or homicide. The patient said that he has history of depression, but currently is not taking any antidepressant medications. Also said that he has been taking Dilaudid 4 times a day for more than 5 weeks. He added that the Dilaudid has not been helping him enough with the pain. The patient has also some medical problems including hepatitis C, COPD, hypertension, coronary artery disease, osteoarthritis and history of left hip ORIF infected with MRSA and treated with vancomycin. The patient also has cirrhosis of the liver, GERD, peptic ulcer and chronic pain syndrome. PAST PSYCHIATRIC HISTORY: The patient said that he has history of depression. PAST MEDICAL HISTORY: As above. SOCIAL HISTORY: The patient is . He has no children. He lives in [facility]. He denies any current alcohol or drug use, but history of drinking. ALLERGIES: No known allergies. MENTAL STATUS EXAM: The patient appears older than his stated age. Anxious. Flat affect. In a depressed mood. Cooperative. Thought processes are mainly goal directed. The patient denies any hallucinations or delusions and he denies any suicidal or homicidal ideations. The patient is alert and oriented to time, place, person, and situation. Intact immediate, recent and remote memories. Fair insight and judgment. Seems to be of average intelligence based on his verbal ability. ASSESSMENT: PRIMARY DIAGNOSES: Major depression, severe, recurrent, without psychotic features. SECONDARY DIAGNOSIS: Rule out opiate use disorder. TREATMENT PLAN: We will continue to monitor his behavior and his condition closely. We will monitor for any possible withdrawal of opiates, but patient is already on hydromorphone IV push on a p.r.n. basis. We will reevaluate. Thanks to Dr. Justino Chand and will follow up with you. JOB# [id number]
[2017-11-03] MEDS ORDERED: Escitalopram Oxalate 5 mg Tab PO SCH (09:00)
[2017-11-03 09:28] LABS: ALLEN TEST Y
[2017-11-03] MEDS: Dicyclomine 10 mg Cap PO SCH ×2 (09:35→17:38)
[2017-11-03] MEDS: Ferrous Sulfate 325 MG TAB PO SCH (09:35)
[2017-11-03] MEDS: Multivitamin Tab PO SCH (09:35)
[2017-11-03] MEDS: Lactulose 10 Gm/15 mL 30mL UDC PO SCH ×5 (10:53→21:33)
[2017-11-03] MEDS: HYDROmorphone 2 mg/mL 1mL Vial IVP PRN ×2 (11:52→17:44)
--- NOTE | 2017-11-03 13:06 | Infectious Disease Prog Note ---
Infectious Disease Subjective - Review of Systems Service Date: 11/03/17 Subjective: No new change, no fever. c/o old pain in his abdomen. Vomiting. not eating enough food. Infectious Disease Objective - Results Result Diagrams: 11/03/17 05:25 11/03/17 05:25 Recent Labs: Laboratory Last Values WBC 3.5 Th/cmm (4.8-10.8) L 11/03/17 05:25 RBC 2.94 Mil/cmm (3.80-5.80) L 11/03/17 05:25 Hgb 8.6 gm/dL (12-16) L 11/03/17 05:25 Hct 25.4 % (41.0-60) L 11/03/17 05:25 MCV 86.3 fl (80-99) 11/03/17 05:25 MCH 29.2 pg (27.0-31.0) 11/03/17 05:25 MCHC Differential 33.8 pg (28.0-36.0) 11/03/17 05:25 RDW 15.4 % (11.5-20.0) 11/03/17 05:25 Plt Count 38 Th/cmm (150-400) L 11/03/17 05:25 MPV 8.2 fl 11/03/17 05:25 Neutrophils % 40.0 % (40.0-80.0) 11/03/17 05:25 Lymphocytes % 36.1 % (20.0-50.0) 11/03/17 05:25 Monocytes % 14.0 % (2.0-10.0) H 11/03/17 05:25 Eosinophils % 8.5 % (0.0-5.0) H 11/03/17 05:25 Basophils % 1.4 % (0.0-2.0) 11/03/17 05:25 Smear Path Review CROP PULLER 11/02/17 01:20 PT 15.3 SECONDS (9.5-11.5) H 11/02/17 01:20 INR 1.44 (0.5-1.4) H 11/02/17 01:20 PTT (Actin FS) 31.5 SECONDS (26.0-38.0) 11/02/17 01:20 Specimen Source ARTERIAL 11/03/17 09:02 Sample Site Left Radial 11/03/17 09:02 pH 7.40 (7.35-7.45) 11/03/17 09:02 pCO2 36.0 mmHg (35.0-45.0) 11/03/17 09:02 pO2 103.0 mmHg (80.0-100.0) H 11/03/17 09:02 HCO3 25.0 mEq/L (20.0-26.0) 11/03/17 09:02 Base Excess 1.0 mEq/L (-3.0-3.0) 11/03/17 09:02 O2 Saturation 98.0 % (92.0-100.0) 11/03/17 09:02 Parker Test Y 11/03/17 09:02 Vent Rate N/A 11/03/17 09:02 Inspired O2 28 11/03/17 09:02 Tidal Volume N/A 11/03/17 09:02 PEEP N/A 11/03/17 09:02 Pressure (ins/psv/peep) N/A 11/03/17 09:02 Critical Value O.WANG 11/03/17 09:02 Sodium 132 mEq/L (136-145) L 11/03/17 05:25 Potassium 4.0 mEq/L (3.5-5.1) 11/03/17 05:25 Chloride 106 mEq/L (98-107) 11/03/17 05:25 Carbon Dioxide 23.0 mEq/L (21.0-31.0) 11/03/17 05:25 Anion Gap 7.0 (7.0-16.0) 11/03/17 05:25 BUN 6 mg/dL (7-25) L 11/03/17 05:25 Creatinine 0.6 mg/dL (0.7-1.3) L 11/03/17 05:25 Est GFR ( Amer) > 60.0 ml/min (>90) 11/03/17 05:25 Est GFR (Non-Af Amer) > 60.0 ml/min 11/03/17 05:25 BUN/Creatinine Ratio 10.0 11/03/17 05:25 Glucose 86 mg/dL (70-105) 11/03/17 05:25 Whole Bld Lactic Acid 1.50 mmol/L (0.60-1.99) 11/02/17 01:20 Calcium 7.9 mg/dL (8.6-10.3) L 11/03/17 05:25 Total Bilirubin 1.3 mg/dL (0.3-1.0) H 11/03/17 05:25 Direct Bilirubin 0.54 mg/dL (0.0-0.2) H 11/03/17 05:25 AST 38 U/L (13-39) 11/03/17 05:25 ALT 20 U/L (7-52) 11/03/17 05:25 Alkaline Phosphatase 60 U/L (34-104) 11/03/17 05:25 Ammonia 85 umol/L (16-53) H 11/03/17 05:25 Creatine Kinase 33 U/L (30-223) 11/02/17 01:20 Troponin I 0.02 ng/mL (0.01-0.05) 11/02/17 01:20 Total Protein 5.5 gm/dL (6.0-8.3) L 11/03/17 05:25 Albumin 1.9 gm/dL (4.2-5.5) L 11/03/17 05:25 Globulin 3.6 gm/dL 11/03/17 05:25 Albumin/Globulin Ratio 0.5 (1.0-1.8) L 11/03/17 05:25 TSH 3.45 uIU/ml (0.34-5.60) 11/03/17 05:25 - Physical Exam Vitals and I&O: Vital Signs Temp 97.0 F 11/03/17 12:21 Pulse 89 11/03/17 12:21 Resp 19 11/03/17 12:21 BP 134/69 11/03/17 12:21 Pulse Ox 100 11/03/17 12:21 Intake & Output 11/02/17 11/03/17 11/03/17 18:59 06:59 18:59 Intake Total 100 300 Balance 100 300 Weight (lbs) 87.997 kg 84.822 kg Intake: Oral 100 300 Other: # Voids 2 # Bowel Movements 1 Weight Source Estimated Bedscale Active Medications: Current Medications Albuterol/Ipratropium (Duoneb Neb) 3 ml HHN [id number] AVRIL Stop: 01/01/18 14:59 Last Admin: 11/03/17 11:43 Dose: 3 ml Artificial Tears (Artificial Tears Ophth Soln) 1 drop EACH EYE Q4HR PRN PRN Reason: Dry Eye Stop: 01/02/18 12:11 Budesonide (Pulmicort) 0.5 mg HHN BIDRT [facility] Stop: 01/01/18 18:59 Last Admin: 11/03/17 07:01 Dose: 0.5 mg Dicyclomine HCl (Bentyl) 20 mg PO BID [facility] Stop: 01/02/18 08:59 Last Admin: 11/03/17 09:35 Dose: 20 mg Escitalopram Oxalate (Lexapro) 5 mg PO DAILY [facility]RIL PRN Reason: Protocol Stop: 01/02/18 08:59 Ferrous Sulfate (Iron) 325 mg PO DAILY [facility] Stop: 01/02/18 08:59 Last Admin: 11/03/17 09:35 Dose: 325 mg Folic Acid (Folate) 1 mg PO DAILY [facility] Stop: 01/01/18 10:44 Last Admin: 11/03/17 09:35 Dose: 1 mg Hydromorphone HCl (Dilaudid) 1 mg IVP Q6H PRN PRN Reason: Severe Pain Stop: 01/02/18 10:58 Last Admin: 11/03/17 11:52 Dose: 1 mg Hydroxyzine HCl (Atarax) 25 mg PO TID AVRIL PRN Reason: Protocol Stop: 01/02/18 08:59 Last Admin: 11/03/17 09:35 Dose: 25 mg Lactulose (Cephulac) 60 gm PO QID [facility] Stop: 01/02/18 08:59 Levocarnitine (Carnitor) 330 mg PO BID [facility] Stop: 01/02/18 08:59 Last Admin: 11/03/17 09:35 Dose: 330 mg Multivitamins/Vitamin C (Theragran) 1 tab PO DAILY [facility] Stop: 01/01/18 10:44 Last Admin: 11/03/17 09:35 Dose: 1 tab Ondansetron HCl (Zofran) 4 mg IV Q8H PRN PRN Reason: Nausea / Vomiting Stop: 01/01/18 20:43 Last Admin: 11/02/17 21:39 Dose: 4 mg Thiamine HCl (Vitamin B1) 100 mg PO DAILY [facility] Stop: 01/01/18 10:44 Last Admin: 11/03/17 09:35 Dose: 100 mg General: no acute distress, well developed, well nourished HEENT: atraumatic, normocephalic, PERRLA Neck: supple, no thyromegaly, no lymphadenopathy Cardiovascular: S1S2, regular Lungs: clear to auscultation bilaterally, clear to percussion Abdomen: soft, no tender, no distended, no rebound Extremities: no cyanosis, no clubbing Neurological: awake, alert, oriented Skin: intact - Procedures Procedures: Procedures Procedure Code Date EXCISION OF DUODENUM, ENDO, DIAGN [id number] 06/06/17 EXCISION OF STOMACH, ENDO, DIAGN [id number] 06/06/17 EXCISION OF TRANSVERSE COLON, ENDO [id number] 06/06/17 Infectious Disease Assmt/Plan - Assessment Assessment: 1. Altered mental status, rule out hepatic encephalopathy, improving. 2. Anemia, stable hemoglobin and hematocrit. 3. Neutropenia, stable. 4. Thrombocytopenia, stable, secondary to cirrhosis. 5. Hepatitis C. 6. Hypertension. 7. Cirrhosis. 8. Asthma, chronic obstructive pulmonary disease. 9. Dyslipidemia. 10. Peptic ulcer disease, gastroesophageal reflux disease. 11. Dementia. 12. Neuropathy. 13. Chronic pain syndrome. 14. History of methicillin-resistant Staphylococcus aureus infection of the left hip. Left hip prosthesis treated, no signs and symptoms of infection at this time. 15. History of open reduction and internal fixation of the left hip. 16. Nausea, vomting and abdominal pain. - Plan Plan: Contiue present treatment, Zofran prn. Gi consult Dr Mendez.
[2017-11-03] MEDS: Polyvinyl Alcohol Ophth Soln 15 mL Bottle EACH EYE PRN ×2 (17:45→21:58)
--- NOTE | 2017-11-03 19:09 | General Progress Note ---
Subjective - Review of Systems Service Date: 11/03/17 Objective - Results Result Diagrams: 11/03/17 05:25 11/03/17 05:25 Recent Labs: Laboratory Last Values WBC 3.5 Th/cmm (4.8-10.8) L 11/03/17 05:25 RBC 2.94 Mil/cmm (3.80-5.80) L 11/03/17 05:25 Hgb 8.6 gm/dL (12-16) L 11/03/17 05:25 Hct 25.4 % (41.0-60) L 11/03/17 05:25 MCV 86.3 fl (80-99) 11/03/17 05:25 MCH 29.2 pg (27.0-31.0) 11/03/17 05:25 MCHC Differential 33.8 pg (28.0-36.0) 11/03/17 05:25 RDW 15.4 % (11.5-20.0) 11/03/17 05:25 Plt Count 38 Th/cmm (150-400) L 11/03/17 05:25 MPV 8.2 fl 11/03/17 05:25 Neutrophils % 40.0 % (40.0-80.0) 11/03/17 05:25 Lymphocytes % 36.1 % (20.0-50.0) 11/03/17 05:25 Monocytes % 14.0 % (2.0-10.0) H 11/03/17 05:25 Eosinophils % 8.5 % (0.0-5.0) H 11/03/17 05:25 Basophils % 1.4 % (0.0-2.0) 11/03/17 05:25 Smear Path Review SURVEILLANCE INVESTIGATOR 11/02/17 01:20 PT 15.3 SECONDS (9.5-11.5) H 11/02/17 01:20 INR 1.44 (0.5-1.4) H 11/02/17 01:20 PTT (Actin FS) 31.5 SECONDS (26.0-38.0) 11/02/17 01:20 Specimen Source ARTERIAL 11/03/17 09:02 Sample Site Left Radial 11/03/17 09:02 pH 7.40 (7.35-7.45) 11/03/17 09:02 pCO2 36.0 mmHg (35.0-45.0) 11/03/17 09:02 pO2 103.0 mmHg (80.0-100.0) H 11/03/17 09:02 HCO3 25.0 mEq/L (20.0-26.0) 11/03/17 09:02 Base Excess 1.0 mEq/L (-3.0-3.0) 11/03/17 09:02 O2 Saturation 98.0 % (92.0-100.0) 11/03/17 09:02 Parker Test Y 11/03/17 09:02 Vent Rate N/A 11/03/17 09:02 Inspired O2 28 11/03/17 09:02 Tidal Volume N/A 11/03/17 09:02 PEEP N/A 11/03/17 09:02 Pressure (ins/psv/peep) N/A 11/03/17 09:02 Critical Value O.WANG 11/03/17 09:02 Sodium 132 mEq/L (136-145) L 11/03/17 05:25 Potassium 4.0 mEq/L (3.5-5.1) 11/03/17 05:25 Chloride 106 mEq/L (98-107) 11/03/17 05:25 Carbon Dioxide 23.0 mEq/L (21.0-31.0) 11/03/17 05:25 Anion Gap 7.0 (7.0-16.0) 11/03/17 05:25 BUN 6 mg/dL (7-25) L 11/03/17 05:25 Creatinine 0.6 mg/dL (0.7-1.3) L 11/03/17 05:25 Est GFR ( Amer) > 60.0 ml/min (>90) 11/03/17 05:25 Est GFR (Non-Af Amer) > 60.0 ml/min 11/03/17 05:25 BUN/Creatinine Ratio 10.0 11/03/17 05:25 Glucose 86 mg/dL (70-105) 11/03/17 05:25 Whole Bld Lactic Acid 1.50 mmol/L (0.60-1.99) 11/02/17 01:20 Calcium 7.9 mg/dL (8.6-10.3) L 11/03/17 05:25 Total Bilirubin 1.3 mg/dL (0.3-1.0) H 11/03/17 05:25 Direct Bilirubin 0.54 mg/dL (0.0-0.2) H 11/03/17 05:25 AST 38 U/L (13-39) 11/03/17 05:25 ALT 20 U/L (7-52) 11/03/17 05:25 Alkaline Phosphatase 60 U/L (34-104) 11/03/17 05:25 Ammonia 85 umol/L (16-53) H 11/03/17 05:25 Creatine Kinase 33 U/L (30-223) 11/02/17 01:20 Troponin I 0.02 ng/mL (0.01-0.05) 11/02/17 01:20 Total Protein 5.5 gm/dL (6.0-8.3) L 11/03/17 05:25 Albumin 1.9 gm/dL (4.2-5.5) L 11/03/17 05:25 Globulin 3.6 gm/dL 11/03/17 05:25 Albumin/Globulin Ratio 0.5 (1.0-1.8) L 11/03/17 05:25 TSH 3.45 uIU/ml (0.34-5.60) 11/03/17 05:25 - Physical Exam Vitals and I&O: Vital Signs Temp 97.5 F 11/03/17 15:46 Pulse 88 11/03/17 19:03 Resp 20 11/03/17 19:03 BP 151/70 11/03/17 15:46 Pulse Ox 98 11/03/17 19:03 Intake & Output 11/03/17 11/03/17 11/04/17 06:59 18:59 06:59 Intake Total 300 1200 Balance 300 1200 Weight (lbs) 84.822 kg 84.822 kg Intake: Oral 300 1200 Other: # Voids 2 3 # Bowel Movements 1 0 Weight Source Bedscale Bedscale Active Medications: Current Medications Albuterol/Ipratropium (Duoneb Neb) 3 ml HHN [id number] [facility] Stop: 01/01/18 14:59 Last Admin: 11/03/17 18:55 Dose: 3 ml Artificial Tears (Artificial Tears Ophth Soln) 1 drop EACH EYE Q4HR PRN PRN Reason: Dry Eye Stop: 01/02/18 12:11 Last Admin: 11/03/17 17:45 Dose: 1 drop Budesonide (Pulmicort) 0.5 mg HHN BIDRT [facility] Stop: 01/01/18 18:59 Last Admin: 11/03/17 18:55 Dose: 0.5 mg Dicyclomine HCl (Bentyl) 20 mg PO BID [facility] Stop: 01/02/18 08:59 Last Admin: 11/03/17 17:38 Dose: 20 mg Escitalopram Oxalate (Lexapro) 5 mg PO DAILY [facility] PRN Reason: Protocol Stop: 01/02/18 08:59 Ferrous Sulfate (Iron) 325 mg PO DAILY [facility] Stop: 01/02/18 08:59 Last Admin: 11/03/17 09:35 Dose: 325 mg Folic Acid (Folate) 1 mg PO DAILY [facility] Stop: 01/01/18 10:44 Last Admin: 11/03/17 09:35 Dose: 1 mg Hydromorphone HCl (Dilaudid) 1 mg IVP Q6H PRN PRN Reason: Severe Pain Stop: 01/02/18 10:58 Last Admin: 11/03/17 17:44 Dose: 1 mg Hydroxyzine HCl (Atarax) 25 mg PO TID [facility] PRN Reason: Protocol Stop: 01/02/18 08:59 Last Admin: 11/03/17 14:37 Dose: 25 mg Lactulose (Cephulac) 60 gm PO QID [facility] Stop: 01/02/18 08:59 Last Admin: 11/03/17 17:47 Dose: 60 gm Levocarnitine (Carnitor) 330 mg PO BID [facility] Stop: 01/02/18 08:59 Last Admin: 11/03/17 17:38 Dose: 330 mg Multivitamins/Vitamin C (Theragran) 1 tab PO DAILY [facility] Stop: 01/01/18 10:44 Last Admin: 11/03/17 09:35 Dose: 1 tab Ondansetron HCl (Zofran) 4 mg IV Q8H PRN PRN Reason: Nausea / Vomiting Stop: 01/01/18 20:43 Last Admin: 11/02/17 21:39 Dose: 4 mg Rifaximin (Xifaxan) 600 mg PO BID [facility] Stop: 01/02/18 16:59 Last Admin: 11/03/17 17:38 Dose: 600 mg Thiamine HCl (Vitamin B1) 100 mg PO DAILY [facility] Stop: 01/01/18 10:44 Last Admin: 11/03/17 09:35 Dose: 100 mg General: Alert, Other (anxious) HEENT: Atraumatic Neck: Supple Lungs: Clear to auscultation Abdomen: Soft - Procedures Procedures: Procedures Procedure Code Date EXCISION OF DUODENUM, ENDO, DIAGN [id number] 06/06/17 EXCISION OF STOMACH, ENDO, DIAGN [id number] 06/06/17 EXCISION OF TRANSVERSE COLON, ENDO [id number] 06/06/17 Assessment/Plan - Assessment Assessment: * Hepatitis c/ cirrhosis * splenomegaly * 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 * Anxiety Monitor without transfusion
[2017-11-03] MEDS ORDERED: Non-Formulary Item 1 EA (Melatonin [Melatonin] 6 MG) PO SCH (21:00)
[2017-11-03 22:34] LABS: URINE MICROSCOPIC INDICATED? YES; URINE SOURCE MIDSTREAM
[2017-11-03 22:45] LABS: URINE BILIRUBIN MODERATE (NEGATIVE); URINE BLOOD TRACE (NEGATIVE); URINE GLUCOSE (UA) NEGATIVE (NEGATIVE); URINE KETONE TRACE mg/dL (NEGATIVE); URINE LEUKOCYTE ESTERASE NEGATIVE (NEGATIVE); URINE NITRATE NEGATIVE (NEGATIVE); URINE PH 6.5 (4.6 - 8.0); URINE PROTEIN TRACE mg/dL (NEGATIVE)
[2017-11-03 23:03] LABS: AMPHETAMINE URINE NEGATIVE (NEGATIVE); BARBITURATES URINE NEGATIVE (NEGATIVE); COCAINE METABOLITE QUAL URINE NEGATIVE (NEGATIVE); METHAMPHETAMINES QUAL URINE NEGATIVE (NEGATIVE); PHENCYCLIDINE (PCP) URINE NEGATIVE (NEGATIVE); TRICYCLICS (TCA) QUAL. URINE NEGATIVE (NEGATIVE)
[2017-11-03 23:04] LABS: BENZODIAZEPINES QUAL URINE NEGATIVE (NEGATIVE); CANNABINOID THC NEGATIVE (NEGATIVE); METHADONE URINE NEGATIVE (NEGATIVE); OPIATES (MORPHINE) QUAL. URINE POSITIVE (NEGATIVE)
[2017-11-03 23:08] LABS: URINE CLARITY CLEAR (CLEAR); URINE COLOR BROWN; URINE EPITHELIAL CELLS NONE SEEN /lpf (FEW); URINE RBC 0-2 /hpf (0-5); URINE WBC 0-2 /hpf (0-5)
[2017-11-03 23:09] LABS: URINE BACTERIA NONE SEEN /hpf (NONE SEEN)
[2017-11-04] MEDS: HYDROmorphone 2 mg/mL 1mL Vial IVP PRN ×4 (00:08→20:43)
--- NOTE | 2017-11-04 03:56 | Progress Notes ---
DATE: 11/03/2017 PROBLEM LIST: 1. Acute exacerbation of chronic obstructive pulmonary disease. 2. Encephalopathy with history of opioid dependency and abuse. SYMPTOMS: The patient is complaining of pain. Breathing is okay. No respiratory distress, etc. PHYSICAL EXAMINATION: VITAL SIGNS: The patient's recorded vitals: Temperature is 97.5, blood pressure 134/69 and saturation 100%. NECK: Veins not visualized. CHEST: Shows diminished air entry, otherwise essentially unremarkable. HEART: Regular. ABDOMEN: Soft, nontender. EXTREMITIES: Shows no peripheral edema. ASSESSMENT: The patient clinically appears to be stable, chronic obstructive pulmonary disease, mild exacerbation, underlying encephalopathy, status improved. PLANS AND SUGGESTIONS: We will go ahead and continue current treatment, respiratory schwab, we will have high moisturizing drops, etc. JOB# [id number]
--- NOTE | 2017-11-04 04:17 | Consultation ---
DATE OF CONSULTATION: 11/03/2017 INPATIENT GASTROINTESTINAL CONSULTATION REFERRING PHYSICIAN: Dr. Justino Chand. REASON FOR CONSULTATION: Altered level of consciousness. HISTORY OF PRESENT ILLNESS: This is a 66-year-old male with underlying history of cirrhosis, came to the hospital with altered level of consciousness. The patient denies having any hematemesis or coffee-ground emesis. Denies melena, hematochezia, or diarrhea. PAST MEDICAL HISTORY: COPD, asthma, hypertension, coronary artery disease, osteoarthritis, hepatitis C, cirrhosis, GERD, and peptic ulcer disease. PAST SURGICAL HISTORY: None to add recently. FAMILY HISTORY: Noncontributory. SOCIAL HISTORY: No tobacco, alcohol, or IV drug usage. He is a resident of [facility]. ALLERGIES: None. CURRENT MEDICATIONS: Pulmicort, Bentyl, Lexapro, iron, folic acid, Dilaudid, Atarax, lactulose, and Zofran. REVIEW OF SYSTEMS: Ten-point review of system was performed and the pertinent positive is cirrhosis. All other systems were otherwise negative. PHYSICAL EXAMINATION: VITAL SIGNS: Temperature 97, breathing 19, pulse of 89, blood pressure 134/69, and satting 100%. GENERAL: No apparent distress. EYES: Anicteric. Normal conjunctivae. HENT: Normocephalic and atraumatic. Moist mucous membranes. NECK: Soft and supple. CHEST: Clear. No effort. CARDIOVASCULAR: Regular rate and rhythm. ABDOMEN: Soft, nontender, and mildly distended. SKIN: Warm, dry. EXTREMITIES: Revealed no cyanosis. PSYCHOLOGIC: Alert and oriented x 3. LABORATORY DATA: Labs show white count 3.5, hemoglobin 8.6, and platelets of 838. INR 1.44, total bilirubin 1.3, AST 38, ALT 20, and alk phos 60. IMPRESSION: This is a 66-year-old male who presented with altered level of consciousness with an elevated ammonia level, but clinically seems to be improving. He is alert and oriented x 4 today with me. He is on lactulose. I would add Xifaxan. Imaging studies of the liver would help and also screen him with alpha fetoprotein. He also need ongoing longitudinal care for his hepatitis C cirrhosis as an outpatient. PLAN: 1. Continue the lactulose, add Xifaxan. 2. Get an abdominal ultrasound. 3. Check an alpha fetoprotein. 4. The patient will need to have his primary care provider establish him to see a epitaxial reactor operator as an outpatient. Thank you for allowing me to participate. Please call me if you have any questions. JOB# [id number]
[2017-11-04 06:54] LABS: HEMATOCRIT 26.3 % (41.0-60); HEMOGLOBIN 8.9 gm/dL (12-16); MEAN CELL VOLUME 85.8 fl (80-99); MEAN CORPUSCULAR HGB CONC 33.8 pg (28.0-36.0); MEAN PLATELET VOLUME 7.5 fl; PLATELET COUNT 64 Th/cmm (150-400); RED BLOOD COUNT 3.06 Mil/cmm (3.80-5.80); RED CELL DISTRIBUTION WIDTH 15.3 % (11.5-20.0); WHITE BLOOD COUNT 4.4 Th/cmm (4.8-10.8)
[2017-11-04 06:55] LABS: MANUAL DIFF REQUIRED? YES
[2017-11-04] MEDS: Polyvinyl Alcohol Ophth Soln 15 mL Bottle EACH EYE PRN ×4 (07:02→20:48)
[2017-11-04 07:16] LABS: BAND NEUTROPHILE 1 % (0-10); BASOPHIL 1 % (0-3); EOSINOPHIL 7 % (0-5); LYMPHOCYTE 38 % (20-50); MONOCYTE 13 % (2-10); NEUTROPHILS 40 % (40-80); TOTAL CELLS COUNTED 100
[2017-11-04 07:18] LABS: PLATELET ESTIMATE DECREASED PLATELETS (NORMAL)
[2017-11-04] MEDS: Budesonide 0.5 Mg/2 mL Ud HHN SCH ×2 (07:45→19:01)
[2017-11-04] MEDS: Albuterol/Ipratropium Neb 3 ML AERS HHN SCH ×4 (07:45→19:01)
--- NOTE | 2017-11-04 08:42 | Diagnostic Imaging Report ---
Abdominal ultrasound HISTORY: Cirrhosis. The liver appears decreased in size. There is an approximate 12.0 cm well-circumscribed sonolucent lesion that appears in close proximity to the liver. Detail is limited. It is uncertain if this represents a large hepatic cyst or possibly in hepatic fluid collection. No sonographic images provided of the gallbladder. No biliary dilatation. Pancreas cannot be well seen due to bowel gas. The right kidney is normal in size. A 2.0 cm cyst is seen in the lower pole. No hydronephrosis. Left kidney appears normal. Spleen appears somewhat enlarged. No other obvious retroperitoneal or intra-abdominal abnormalities. IMPRESSION: 1. Suboptimal examination. A CT scan is recommended for further detail and assessment 2. Ascites. 3. Round sonolucent focus in close proximity to the liver. It is uncertain if this may be related to a hepatic cyst or possibly loculated perihepatic fluid. Again, a CT scan would provide additional assessment 4. Suggestion of splenomegaly 5. Right renal cyst
[2017-11-04] MEDS: Lactulose 10 Gm/15 mL 30mL UDC PO SCH ×3 (09:04→17:17)
[2017-11-04] MEDS: Dicyclomine 10 mg Cap PO SCH ×2 (09:05→17:18)
[2017-11-04] MEDS: Multivitamin Tab PO SCH (09:06)
[2017-11-04] MEDS: Ferrous Sulfate 325 MG TAB PO SCH (09:06)
--- NOTE | 2017-11-04 10:22 | Consultation ---
DATE OF CONSULTATION: PATIENT OF: Dr. Justino Chand HISTORY OF PRESENT ILLNESS: This 66-year-old male patient who is admitted from longterm due to altered level of consciousness. The patient's cardiac consult is requested in view of hypertension. PAST MEDICAL HISTORY: Hepatitis C, cirrhosis of liver, pancytopenia, hypertension, hepatic encephalopathy, asthma, COPD, hyperlipidemia, GERD, narcotic dependence, left hip ORIF with MRSA infection. FAMILY HISTORY: Unremarkable. SOCIAL HISTORY: The patient has a history of hepatitis C. No history of smoking at the present time. ALLERGIES: No known allergies. PHYSICAL EXAMINATION: VITAL SIGNS: Blood pressure 130/82, pulse 80, respirations 20. HEAD: Normocephalic. No lumps or bumps. EYES: Pupils equal, reactive to light. Fundi show AV nicking. Sclerae white. Conjunctivae pink. NECK: Carotid 2+. Normal upstroke. JVD flat. Thyroid not palpable. Lymph nodes not palpable. CHEST: Shows increased AP diameter. No kyphosis, scoliosis. LUNGS: Bilateral bronchovesicular breath sounds. HEART: PMI fifth intercostal space with lateral to midclavicular line. S1, S2, S3, S4. Soft systolic murmur. ABDOMEN: Soft. Liver, spleen not palpable. Slight splenomegaly. NEUROLOGIC: Hepatic encephalopathy with peripheral neuropathy. EXTREMITIES: Peripheral pulses 2+. No pedal edema. CLINICAL IMPRESSION: Hepatitis C, pancytopenia, cirrhosis of liver, hypertension, acute exacerbation of COPD, asthma, hyperlipidemia, GERD, narcotic dependence, left hip ORIF MRSA. PLAN: The patient to continue present care, IV antibiotics, pulmonary consult. Monitor the patient closely. [facility]# [id number]
--- NOTE | 2017-11-04 13:09 | General Progress Note ---
Subjective - Review of Systems Service Date: 11/04/17 Objective - Results Result Diagrams: 11/04/17 06:10 11/03/17 05:25 Recent Labs: Laboratory Last Values WBC 4.4 Th/cmm (4.8-10.8) L 11/04/17 06:10 RBC 3.06 Mil/cmm (3.80-5.80) L 11/04/17 06:10 Hgb 8.9 gm/dL (12-16) L 11/04/17 06:10 Hct 26.3 % (41.0-60) L 11/04/17 06:10 MCV 85.8 fl (80-99) 11/04/17 06:10 MCH 29.0 pg (27.0-31.0) 11/04/17 06:10 MCHC Differential 33.8 pg (28.0-36.0) 11/04/17 06:10 RDW 15.3 % (11.5-20.0) 11/04/17 06:10 Plt Count 64 Th/cmm (150-400) L 11/04/17 06:10 MPV 7.5 fl 11/04/17 06:10 Neutrophils % 40.0 % (40.0-80.0) 11/03/17 05:25 Band Neutrophils % 1 % (0-10) 11/04/17 06:10 Lymphocytes % 36.1 % (20.0-50.0) 11/03/17 05:25 Monocytes % 14.0 % (2.0-10.0) H 11/03/17 05:25 Eosinophils % 8.5 % (0.0-5.0) H 11/03/17 05:25 Basophils % 1.4 % (0.0-2.0) 11/03/17 05:25 Neutrophils (Manual) 40 % (40-80) 11/04/17 06:10 Lymphocytes 38 % (20-50) 11/04/17 06:10 Monocytes 13 % (2-10) H 11/04/17 06:10 Eosinophils 7 % (0-5) H 11/04/17 06:10 Basophils 1 % (0-3) 11/04/17 06:10 Platelet Estimate DECREASED PLATELETS (NORMAL) 11/04/17 06:10 Smear Path Review JUNIOR GRAPHIC DESIGNER 11/02/17 01:20 PT 15.3 SECONDS (9.5-11.5) H 11/02/17 01:20 INR 1.44 (0.5-1.4) H 11/02/17 01:20 PTT (Actin FS) 31.5 SECONDS (26.0-38.0) 11/02/17 01:20 Specimen Source ARTERIAL 11/03/17 09:02 Sample Site Left Radial 11/03/17 09:02 pH 7.40 (7.35-7.45) 11/03/17 09:02 pCO2 36.0 mmHg (35.0-45.0) 11/03/17 09:02 pO2 103.0 mmHg (80.0-100.0) H 11/03/17 09:02 HCO3 25.0 mEq/L (20.0-26.0) 11/03/17 09:02 Base Excess 1.0 mEq/L (-3.0-3.0) 11/03/17 09:02 O2 Saturation 98.0 % (92.0-100.0) 11/03/17 09:02 Parker Test Y 11/03/17 09:02 Vent Rate N/A 11/03/17 09:02 Inspired O2 28 11/03/17 09:02 Tidal Volume N/A 11/03/17 09:02 PEEP N/A 11/03/17 09:02 Pressure (ins/psv/peep) N/A 11/03/17 09:02 Critical Value O.WANG 11/03/17 09:02 Sodium 132 mEq/L (136-145) L 11/03/17 05:25 Potassium 4.0 mEq/L (3.5-5.1) 11/03/17 05:25 Chloride 106 mEq/L (98-107) 11/03/17 05:25 Carbon Dioxide 23.0 mEq/L (21.0-31.0) 11/03/17 05:25 Anion Gap 7.0 (7.0-16.0) 11/03/17 05:25 BUN 6 mg/dL (7-25) L 11/03/17 05:25 Creatinine 0.6 mg/dL (0.7-1.3) L 11/03/17 05:25 Est GFR ( Amer) > 60.0 ml/min (>90) 11/03/17 05:25 Est GFR (Non-Af Amer) > 60.0 ml/min 11/03/17 05:25 BUN/Creatinine Ratio 10.0 11/03/17 05:25 Glucose 86 mg/dL (70-105) 11/03/17 05:25 Whole Bld Lactic Acid 1.50 mmol/L (0.60-1.99) 11/02/17 01:20 Calcium 7.9 mg/dL (8.6-10.3) L 11/03/17 05:25 Total Bilirubin 1.3 mg/dL (0.3-1.0) H 11/03/17 05:25 Direct Bilirubin 0.54 mg/dL (0.0-0.2) H 11/03/17 05:25 AST 38 U/L (13-39) 11/03/17 05:25 ALT 20 U/L (7-52) 11/03/17 05:25 Alkaline Phosphatase 60 U/L (34-104) 11/03/17 05:25 Ammonia 69 umol/L (16-53) H 11/04/17 10:34 Creatine Kinase 33 U/L (30-223) 11/02/17 01:20 Troponin I 0.02 ng/mL (0.01-0.05) 11/02/17 01:20 Total Protein 5.5 gm/dL (6.0-8.3) L 11/03/17 05:25 Albumin 1.9 gm/dL (4.2-5.5) L 11/03/17 05:25 Globulin 3.6 gm/dL 11/03/17 05:25 Albumin/Globulin Ratio 0.5 (1.0-1.8) L 11/03/17 05:25 Tumor Marker AFP 7.5 ng/mL (0.0-8.3) 11/03/17 05:25 TSH 3.45 uIU/ml (0.34-5.60) 11/03/17 05:25 Urine Source MIDSTREAM 11/03/17 22:20 Urine Color BROWN 11/03/17 22:20 Urine Clarity CLEAR (CLEAR) 11/03/17 22:20 Urine pH 6.5 (4.6 - 8.0) 11/03/17 22:20 Ur Specific [place] 1.025 (1.005-1.030) 11/03/17 22:20 Urine Protein TRACE mg/dL (NEGATIVE) 11/03/17 22:20 Urine Glucose (UA) NEGATIVE mg/dL (NEGATIVE) 11/03/17 22:20 Urine Ketones TRACE mg/dL (NEGATIVE) 11/03/17 22:20 Urine Blood TRACE (NEGATIVE) 11/03/17 22:20 Urine Nitrate NEGATIVE (NEGATIVE) 11/03/17 22:20 Urine Bilirubin MODERATE (NEGATIVE) H 11/03/17 22:20 Urine Urobilinogen 1.0 E.U./dL (0.2 - 1.0) 11/03/17 22:20 Ur Leukocyte Esterase NEGATIVE (NEGATIVE) 11/03/17 22:20 Urine RBC 0-2 /hpf (0-5) H 11/03/17 22:20 Urine WBC 0-2 /hpf (0-5) 11/03/17 22:20 Ur Epithelial Cells NONE SEEN /lpf (FEW) 11/03/17 22:20 Urine Bacteria NONE SEEN /hpf (NONE SEEN) 11/03/17 22:20 Urine Opiates Screen POSITIVE (NEGATIVE) H 11/03/17 22:20 Urine Methadone Screen NEGATIVE (NEGATIVE) 11/03/17 22:20 Ur Barbiturates Screen NEGATIVE (NEGATIVE) 11/03/17 22:20 Ur Tricyclics Screen NEGATIVE (NEGATIVE) 11/03/17 22:20 Ur Phencyclidine Scrn NEGATIVE (NEGATIVE) 11/03/17 22:20 Amphetamines Screen NEGATIVE (NEGATIVE) 11/03/17 22:20 U Methamphetamines Scrn NEGATIVE (NEGATIVE) 11/03/17 22:20 U Benzodiazepines Scrn NEGATIVE (NEGATIVE) 11/03/17 22:20 U Cocaine Metab Screen NEGATIVE (NEGATIVE) 11/03/17 22:20 U Cannabinoids Screen NEGATIVE (NEGATIVE) 11/03/17 22:20 - Physical Exam Vitals and I&O: Vital Signs Temp 99.1 F 11/04/17 12:00 Pulse 74 11/04/17 12:00 Resp 18 11/04/17 12:00 BP 113/53 11/04/17 12:00 Pulse Ox 96 11/04/17 12:00 Intake & Output 11/03/17 11/04/17 11/04/17 18:59 06:59 18:59 Intake Total 1200 300 Balance 1200 300 Weight (lbs) 84.822 kg 86.137 kg 85.729 kg Intake: Oral 1200 300 Other: # Voids 3 # Bowel Movements 0 Weight Source Bedscale Bedscale Bedscale Active Medications: Current Medications Albuterol/Ipratropium (Duoneb Neb) 3 ml HHN [id number] [facility] Stop: 01/01/18 14:59 Last Admin: 11/04/17 11:08 Dose: 3 ml Artificial Tears (Artificial Tears Ophth Soln) 1 drop EACH EYE Q4HR PRN PRN Reason: Dry Eye Stop: 01/02/18 12:11 Last Admin: 11/04/17 09:04 Dose: 1 drop Budesonide (Pulmicort) 0.5 mg HHN BIDRT [facility] Stop: 01/01/18 18:59 Last Admin: 11/04/17 07:45 Dose: 0.5 mg Dicyclomine HCl (Bentyl) 20 mg PO BID [facility] Stop: 01/02/18 08:59 Last Admin: 11/04/17 09:05 Dose: 20 mg Escitalopram Oxalate (Lexapro) 5 mg PO DAILY [facility] PRN Reason: Protocol Stop: 01/02/18 08:59 Ferrous Sulfate (Iron) 325 mg PO DAILY [facility] Stop: 01/02/18 08:59 Last Admin: 11/04/17 09:06 Dose: 325 mg Folic Acid (Folate) 1 mg PO DAILY [facility] Stop: 01/01/18 10:44 Last Admin: 11/04/17 09:05 Dose: 1 mg Hydromorphone HCl (Dilaudid) 1 mg IVP Q6H PRN PRN Reason: Severe Pain Stop: 01/02/18 10:58 Last Admin: 11/04/17 06:14 Dose: 1 mg Hydroxyzine HCl (Atarax) 25 mg PO TID [facility] PRN Reason: Protocol Stop: 01/02/18 08:59 Last Admin: 11/04/17 09:10 Dose: 25 mg Lactulose (Cephulac) 60 gm PO QID [facility] Stop: 01/02/18 08:59 Last Admin: 11/04/17 12:25 Dose: Not Given Levocarnitine (Carnitor) 330 mg PO BID [facility] Stop: 01/02/18 08:59 Last Admin: 11/04/17 09:04 Dose: 330 mg Multivitamins/Vitamin C (Theragran) 1 tab PO DAILY [facility] Stop: 01/01/18 10:44 Last Admin: 11/04/17 09:06 Dose: 1 tab Ondansetron HCl (Zofran) 4 mg IV Q8H PRN PRN Reason: Nausea / Vomiting Stop: 01/01/18 20:43 Last Admin: 11/02/17 21:39 Dose: 4 mg Rifaximin (Xifaxan) 600 mg PO BID [facility] Stop: 01/02/18 16:59 Last Admin: 11/04/17 09:05 Dose: 600 mg Thiamine HCl (Vitamin B1) 100 mg PO DAILY [facility] Stop: 01/01/18 10:44 Last Admin: 11/04/17 09:06 Dose: 100 mg General: Alert, Other (anxious) HEENT: Atraumatic Neck: Supple Lungs: Clear to auscultation Abdomen: Soft - Procedures Procedures: Procedures Procedure Code Date EXCISION OF DUODENUM, ENDO, DIAGN [id number] 06/06/17 EXCISION OF STOMACH, ENDO, DIAGN [id number] 06/06/17 EXCISION OF TRANSVERSE COLON, ENDO [id number] 06/06/17 Assessment/Plan - Assessment Assessment: * Hepatitis c/ cirrhosis * splenomegaly * Encephalopathy * 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 * Anxiety Monitor without transfusion encephalopathy improving Nutritional Asmnt/Malnutr-PDOC - Dietary Evaluation Malnutrition Findings (Please click <Entered> for more info): Nutritional Asmnt/Malnutrition Start: 11/04/17 10: 32 Text: Status: Complete Freq: Document 11/04/17 10:32 BHAVNA (Rec: 11/04/17 10:38 [facility] Nutritional Asmnt/Malnutrition Patient General Information Diagnosis Hepatic Failure Pertinent Medical Hx/Surgical Hx chronic pain syndrome, dyslipidemia, encephalopathy, COPD, peptic ulcer disease, hep C Subjective Information Pt asleep in bed at time of visit Current Diet Order/ Nutrition Support mechanical soft diet Pertinent Medications Fe, folate, dilaudid, lactulose, theragran, zofran, vit B Pertinent Labs 11/03: Na 132, K 4.0, Cl 106, CO2 23, BUN 6, Cr 0.6, Ca 7.9, glucose 86 Nutritional Hx/Data Height 1.85 m Height (Calculated Centimeters) 185.4 Current Weight (lbs) 85.729 kg Weight (Calculated Kilograms) 85.7 Weight (Calculated Grams) 22080.0 Body Mass Index (BMI) 24.9 GI Symptoms GI Symptoms None Last BM 5/4 Cultural/Ethnic/Anabaptist Belief Unknown Usual diet at home mechanical soft Skin Integrity/Comment: poppy score 14 Estimated Nutritional Goals BEE in Kcals: Using Current wt Calories/Kcals/Kg 28-33kcals/kg Kcals Calculated 2408-2580kcals/kg Protein: Using Current wt Protein g/k.2g/kg Protein Calculated 103g/day Fluid: ml per MD Nutritional Problem 1. Problem Problem Increased nutrient needs related to Etiology increased nutrient demands Signs/Symptoms: as evidenced by hepatic failure Intervention/Recommendation Comments Recommend mechanical soft diet Recommend Boost BID to help meet estimated needs Expected Outcomes/Goals Expected Outcomes/Goals PO intake >75% of meals
--- NOTE | 2017-11-04 14:52 | Infectious Disease Prog Note ---
Infectious Disease Subjective - Review of Systems Service Date: 11/04/17 Subjective: No new change, no fever. c/o old pain in his abdomen. Vomiting. not eating enough food. Infectious Disease Objective - Results Result Diagrams: 11/04/17 06:10 11/03/17 05:25 Recent Labs: Laboratory Last Values WBC 4.4 Th/cmm (4.8-10.8) L 11/04/17 06:10 RBC 3.06 Mil/cmm (3.80-5.80) L 11/04/17 06:10 Hgb 8.9 gm/dL (12-16) L 11/04/17 06:10 Hct 26.3 % (41.0-60) L 11/04/17 06:10 MCV 85.8 fl (80-99) 11/04/17 06:10 MCH 29.0 pg (27.0-31.0) 11/04/17 06:10 MCHC Differential 33.8 pg (28.0-36.0) 11/04/17 06:10 RDW 15.3 % (11.5-20.0) 11/04/17 06:10 Plt Count 64 Th/cmm (150-400) L 11/04/17 06:10 MPV 7.5 fl 11/04/17 06:10 Neutrophils % 40.0 % (40.0-80.0) 11/03/17 05:25 Band Neutrophils % 1 % (0-10) 11/04/17 06:10 Lymphocytes % 36.1 % (20.0-50.0) 11/03/17 05:25 Monocytes % 14.0 % (2.0-10.0) H 11/03/17 05:25 Eosinophils % 8.5 % (0.0-5.0) H 11/03/17 05:25 Basophils % 1.4 % (0.0-2.0) 11/03/17 05:25 Neutrophils (Manual) 40 % (40-80) 11/04/17 06:10 Lymphocytes 38 % (20-50) 11/04/17 06:10 Monocytes 13 % (2-10) H 11/04/17 06:10 Eosinophils 7 % (0-5) H 11/04/17 06:10 Basophils 1 % (0-3) 11/04/17 06:10 Platelet Estimate DECREASED PLATELETS (NORMAL) 11/04/17 06:10 Smear Path Review [place] 11/02/17 01:20 PT 15.3 SECONDS (9.5-11.5) H 11/02/17 01:20 INR 1.44 (0.5-1.4) H 11/02/17 01:20 PTT (Actin FS) 31.5 SECONDS (26.0-38.0) 11/02/17 01:20 Specimen Source ARTERIAL 11/03/17 09:02 Sample Site Left Radial 11/03/17 09:02 pH 7.40 (7.35-7.45) 11/03/17 09:02 pCO2 36.0 mmHg (35.0-45.0) 11/03/17 09:02 pO2 103.0 mmHg (80.0-100.0) H 11/03/17 09:02 HCO3 25.0 mEq/L (20.0-26.0) 11/03/17 09:02 Base Excess 1.0 mEq/L (-3.0-3.0) 11/03/17 09:02 O2 Saturation 98.0 % (92.0-100.0) 11/03/17 09:02 Parker Test Y 11/03/17 09:02 Vent Rate N/A 11/03/17 09:02 Inspired O2 28 11/03/17 09:02 Tidal Volume N/A 11/03/17 09:02 PEEP N/A 11/03/17 09:02 Pressure (ins/psv/peep) N/A 11/03/17 09:02 Critical Value O.WANG 11/03/17 09:02 Sodium 132 mEq/L (136-145) L 11/03/17 05:25 Potassium 4.0 mEq/L (3.5-5.1) 11/03/17 05:25 Chloride 106 mEq/L (98-107) 11/03/17 05:25 Carbon Dioxide 23.0 mEq/L (21.0-31.0) 11/03/17 05:25 Anion Gap 7.0 (7.0-16.0) 11/03/17 05:25 BUN 6 mg/dL (7-25) L 11/03/17 05:25 Creatinine 0.6 mg/dL (0.7-1.3) L 11/03/17 05:25 Est GFR ( Amer) > 60.0 ml/min (>90) 11/03/17 05:25 Est GFR (Non-Af Amer) > 60.0 ml/min 11/03/17 05:25 BUN/Creatinine Ratio 10.0 11/03/17 05:25 Glucose 86 mg/dL (70-105) 11/03/17 05:25 Whole Bld Lactic Acid 1.50 mmol/L (0.60-1.99) 11/02/17 01:20 Calcium 7.9 mg/dL (8.6-10.3) L 11/03/17 05:25 Total Bilirubin 1.3 mg/dL (0.3-1.0) H 11/03/17 05:25 Direct Bilirubin 0.54 mg/dL (0.0-0.2) H 11/03/17 05:25 AST 38 U/L (13-39) 11/03/17 05:25 ALT 20 U/L (7-52) 11/03/17 05:25 Alkaline Phosphatase 60 U/L (34-104) 11/03/17 05:25 Ammonia 69 umol/L (16-53) H 11/04/17 10:34 Creatine Kinase 33 U/L (30-223) 11/02/17 01:20 Troponin I 0.02 ng/mL (0.01-0.05) 11/02/17 01:20 Total Protein 5.5 gm/dL (6.0-8.3) L 11/03/17 05:25 Albumin 1.9 gm/dL (4.2-5.5) L 11/03/17 05:25 Globulin 3.6 gm/dL 11/03/17 05:25 Albumin/Globulin Ratio 0.5 (1.0-1.8) L 11/03/17 05:25 Tumor Marker AFP 7.5 ng/mL (0.0-8.3) 11/03/17 05:25 TSH 3.45 uIU/ml (0.34-5.60) 11/03/17 05:25 Urine Source MIDSTREAM 11/03/17 22:20 Urine Color BROWN 11/03/17 22:20 Urine Clarity CLEAR (CLEAR) 11/03/17 22:20 Urine pH 6.5 (4.6 - 8.0) 11/03/17 22:20 Ur Specific [place] 1.025 (1.005-1.030) 11/03/17 22:20 Urine Protein TRACE mg/dL (NEGATIVE) 11/03/17 22:20 Urine Glucose (UA) NEGATIVE mg/dL (NEGATIVE) 11/03/17 22:20 Urine Ketones TRACE mg/dL (NEGATIVE) 11/03/17 22:20 Urine Blood TRACE (NEGATIVE) 11/03/17 22:20 Urine Nitrate NEGATIVE (NEGATIVE) 11/03/17 22:20 Urine Bilirubin MODERATE (NEGATIVE) H 11/03/17 22:20 Urine Urobilinogen 1.0 E.U./dL (0.2 - 1.0) 11/03/17 22:20 Ur Leukocyte Esterase NEGATIVE (NEGATIVE) 11/03/17 22:20 Urine RBC 0-2 /hpf (0-5) H 11/03/17 22:20 Urine WBC 0-2 /hpf (0-5) 11/03/17 22:20 Ur Epithelial Cells NONE SEEN /lpf (FEW) 11/03/17 22:20 Urine Bacteria NONE SEEN /hpf (NONE SEEN) 11/03/17 22:20 Urine Opiates Screen POSITIVE (NEGATIVE) H 11/03/17 22:20 Urine Methadone Screen NEGATIVE (NEGATIVE) 11/03/17 22:20 Ur Barbiturates Screen NEGATIVE (NEGATIVE) 11/03/17 22:20 Ur Tricyclics Screen NEGATIVE (NEGATIVE) 11/03/17 22:20 Ur Phencyclidine Scrn NEGATIVE (NEGATIVE) 11/03/17 22:20 Amphetamines Screen NEGATIVE (NEGATIVE) 11/03/17 22:20 U Methamphetamines Scrn NEGATIVE (NEGATIVE) 11/03/17 22:20 U Benzodiazepines Scrn NEGATIVE (NEGATIVE) 11/03/17 22:20 U Cocaine Metab Screen NEGATIVE (NEGATIVE) 11/03/17 22:20 U Cannabinoids Screen NEGATIVE (NEGATIVE) 11/03/17 22:20 - Physical Exam Vitals and I&O: Vital Signs Temp 99.1 F 11/04/17 12:00 Pulse 74 11/04/17 12:00 Resp 18 11/04/17 12:00 BP 113/53 11/04/17 12:00 Pulse Ox 96 11/04/17 12:00 Intake & Output 11/03/17 11/04/17 11/04/17 18:59 06:59 18:59 Intake Total 1200 300 Balance 1200 300 Weight (lbs) 84.822 kg 86.137 kg 85.729 kg Intake: Oral 1200 300 Other: # Voids 3 # Bowel Movements 0 Weight Source Bedscale Bedscale Bedscale Active Medications: Current Medications Albuterol/Ipratropium (Duoneb Neb) 3 ml HHN [id number] [facility] Stop: 01/01/18 14:59 Last Admin: 11/04/17 11:08 Dose: 3 ml Artificial Tears (Artificial Tears Ophth Soln) 1 drop EACH EYE Q4HR PRN PRN Reason: Dry Eye Stop: 01/02/18 12:11 Last Admin: 11/04/17 09:04 Dose: 1 drop Budesonide (Pulmicort) 0.5 mg HHN BIDRT [facility] Stop: 01/01/18 18:59 Last Admin: 11/04/17 07:45 Dose: 0.5 mg Dicyclomine HCl (Bentyl) 20 mg PO BID [facility] Stop: 01/02/18 08:59 Last Admin: 11/04/17 09:05 Dose: 20 mg Escitalopram Oxalate (Lexapro) 5 mg PO DAILY [facility] PRN Reason: Protocol Stop: 01/02/18 08:59 Ferrous Sulfate (Iron) 325 mg PO DAILY [facility] Stop: 01/02/18 08:59 Last Admin: 11/04/17 09:06 Dose: 325 mg Folic Acid (Folate) 1 mg PO DAILY [facility] Stop: 01/01/18 10:44 Last Admin: 11/04/17 09:05 Dose: 1 mg Hydromorphone HCl (Dilaudid) 1 mg IVP Q6H PRN PRN Reason: Severe Pain Stop: 01/02/18 10:58 Last Admin: 11/04/17 06:14 Dose: 1 mg Hydroxyzine HCl (Atarax) 25 mg PO TID [facility] PRN Reason: Protocol Stop: 01/02/18 08:59 Last Admin: 11/04/17 09:10 Dose: 25 mg Lactulose (Cephulac) 60 gm PO QID [facility] Stop: 01/02/18 08:59 Last Admin: 11/04/17 12:25 Dose: Not Given Levocarnitine (Carnitor) 330 mg PO BID [facility] Stop: 01/02/18 08:59 Last Admin: 11/04/17 09:04 Dose: 330 mg Multivitamins/Vitamin C (Theragran) 1 tab PO DAILY [facility] Stop: 01/01/18 10:44 Last Admin: 11/04/17 09:06 Dose: 1 tab Ondansetron HCl (Zofran) 4 mg IV Q8H PRN PRN Reason: Nausea / Vomiting Stop: 01/01/18 20:43 Last Admin: 11/02/17 21:39 Dose: 4 mg Rifaximin (Xifaxan) 600 mg PO BID [facility] Stop: 01/02/18 16:59 Last Admin: 11/04/17 09:05 Dose: 600 mg Thiamine HCl (Vitamin B1) 100 mg PO DAILY [facility] Stop: 01/01/18 10:44 Last Admin: 11/04/17 09:06 Dose: 100 mg General: no acute distress, well developed, well nourished HEENT: atraumatic, normocephalic, PERRLA, EOMI Neck: supple, no thyromegaly Cardiovascular: S1S2, regular Lungs: clear to auscultation bilaterally, clear to percussion Abdomen: soft, no tender, no distended Extremities: no cyanosis, no clubbing, no edema Neurological: awake, alert, oriented Skin: intact - Procedures Procedures: Procedures Procedure Code Date EXCISION OF DUODENUM, ENDO, DIAGN [id number] 06/06/17 EXCISION OF STOMACH, ENDO, DIAGN [id number] 06/06/17 EXCISION OF TRANSVERSE COLON, ENDO [id number] 06/06/17 Infectious Disease Assmt/Plan - Assessment Assessment: 1. Altered mental status, rule out hepatic encephalopathy, improving. 2. Anemia, stable hemoglobin and hematocrit. 3. Neutropenia, stable. 4. Thrombocytopenia, stable, secondary to cirrhosis. 5. Hepatitis C. 6. Hypertension. 7. Cirrhosis. 8. Asthma, chronic obstructive pulmonary disease. 9. Dyslipidemia. 10. Peptic ulcer disease, gastroesophageal reflux disease. 11. Dementia. 12. Neuropathy. 13. Chronic pain syndrome. 14. History of methicillin-resistant Staphylococcus aureus infection of the left hip. Left hip prosthesis treated, no signs and symptoms of infection at this time. 15. History of open reduction and internal fixation of the left hip. 16. Nausea, vomting and abdominal pain. - Plan Plan: Continue present treatment, Zofran prn. Nutritional Asmnt/Malnutr-PDOC - Dietary Evaluation Malnutrition Findings (Please click <Entered> for more info): Nutritional Asmnt/Malnutrition Start: 11/04/17 10: 32 Text: Status: Complete Freq: Document 11/04/17 10:32 BHAVNA (Rec: 11/04/17 10:38 BHAVNA BAY- [id number]) Nutritional Asmnt/Malnutrition Patient General Information Diagnosis Hepatic Failure Pertinent Medical Hx/Surgical Hx chronic pain syndrome, dyslipidemia, encephalopathy, COPD, peptic ulcer disease, hep C Subjective Information Pt asleep in bed at time of visit Current Diet Order/ Nutrition Support mechanical soft diet Pertinent Medications Fe, folate, dilaudid, lactulose, theragran, zofran, vit B Pertinent Labs 11/03: Na 132, K 4.0, Cl 106, CO2 23, BUN 6, Cr 0.6, Ca 7.9, glucose 86 Nutritional Hx/Data Height 1.85 m Height (Calculated Centimeters) 185.4 Current Weight (lbs) 85.729 kg Weight (Calculated Kilograms) 85.7 Weight (Calculated Grams) 70860.0 Body Mass Index (BMI) 24.9 GI Symptoms GI Symptoms None Last BM 11/03 Cultural/Ethnic/Mu-Ism Belief Unknown Usual diet at home mechanical soft Skin Integrity/Comment: poppy score 14 Estimated Nutritional Goals BEE in Kcals: Using Current wt Calories/Kcals/Kg 28-33kcals/kg Kcals Calculated 2408-2580kcals/kg Protein: Using Current wt Protein g/k.2g/kg Protein Calculated 103g/day Fluid: ml per MD Nutritional Problem 1. Problem Problem Increased nutrient needs related to Etiology increased nutrient demands Signs/Symptoms: as evidenced by hepatic failure Intervention/Recommendation Comments Recommend mechanical soft diet Recommend Boost BID to help meet estimated needs Expected Outcomes/Goals Expected Outcomes/Goals PO intake >75% of meals
--- NOTE | 2017-11-04 17:46 | GI Progress Note ---
Subjective - Review of Systems Service Date: 11/04/17 Events since last encounter: No events Subjective: C/O diffuse abd pain Objective - Results Result Diagrams: 11/04/17 06:10 11/03/17 05:25 Recent Labs: Laboratory Last Values WBC 4.4 Th/cmm (4.8-10.8) L 11/04/17 06:10 RBC 3.06 Mil/cmm (3.80-5.80) L 11/04/17 06:10 Hgb 8.9 gm/dL (12-16) L 11/04/17 06:10 Hct 26.3 % (41.0-60) L 11/04/17 06:10 MCV 85.8 fl (80-99) 11/04/17 06:10 MCH 29.0 pg (27.0-31.0) 11/04/17 06:10 MCHC Differential 33.8 pg (28.0-36.0) 11/04/17 06:10 RDW 15.3 % (11.5-20.0) 11/04/17 06:10 Plt Count 64 Th/cmm (150-400) L 11/04/17 06:10 MPV 7.5 fl 11/04/17 06:10 Neutrophils % 40.0 % (40.0-80.0) 11/03/17 05:25 Band Neutrophils % 1 % (0-10) 11/04/17 06:10 Lymphocytes % 36.1 % (20.0-50.0) 11/03/17 05:25 Monocytes % 14.0 % (2.0-10.0) H 11/03/17 05:25 Eosinophils % 8.5 % (0.0-5.0) H 11/03/17 05:25 Basophils % 1.4 % (0.0-2.0) 11/03/17 05:25 Neutrophils (Manual) 40 % (40-80) 11/04/17 06:10 Lymphocytes 38 % (20-50) 11/04/17 06:10 Monocytes 13 % (2-10) H 11/04/17 06:10 Eosinophils 7 % (0-5) H 11/04/17 06:10 Basophils 1 % (0-3) 11/04/17 06:10 Platelet Estimate DECREASED PLATELETS (NORMAL) 11/04/17 06:10 Smear Path Review [place] 11/02/17 01:20 PT 15.3 SECONDS (9.5-11.5) H 11/02/17 01:20 INR 1.44 (0.5-1.4) H 11/02/17 01:20 PTT (Actin FS) 31.5 SECONDS (26.0-38.0) 11/02/17 01:20 Specimen Source ARTERIAL 11/03/17 09:02 Sample Site Left Radial 11/03/17 09:02 pH 7.40 (7.35-7.45) 11/03/17 09:02 pCO2 36.0 mmHg (35.0-45.0) 11/03/17 09:02 pO2 103.0 mmHg (80.0-100.0) H 11/03/17 09:02 HCO3 25.0 mEq/L (20.0-26.0) 11/03/17 09:02 Base Excess 1.0 mEq/L (-3.0-3.0) 11/03/17 09:02 O2 Saturation 98.0 % (92.0-100.0) 11/03/17 09:02 Parker Test Y 11/03/17 09:02 Vent Rate N/A 11/03/17 09:02 Inspired O2 28 11/03/17 09:02 Tidal Volume N/A 11/03/17 09:02 PEEP N/A 11/03/17 09:02 Pressure (ins/psv/peep) N/A 11/03/17 09:02 Critical Value O.WANG 11/03/17 09:02 Sodium 132 mEq/L (136-145) L 11/03/17 05:25 Potassium 4.0 mEq/L (3.5-5.1) 11/03/17 05:25 Chloride 106 mEq/L (98-107) 11/03/17 05:25 Carbon Dioxide 23.0 mEq/L (21.0-31.0) 11/03/17 05:25 Anion Gap 7.0 (7.0-16.0) 11/03/17 05:25 BUN 6 mg/dL (7-25) L 11/03/17 05:25 Creatinine 0.6 mg/dL (0.7-1.3) L 11/03/17 05:25 Est GFR ( Amer) > 60.0 ml/min (>90) 11/03/17 05:25 Est GFR (Non-Af Amer) > 60.0 ml/min 11/03/17 05:25 BUN/Creatinine Ratio 10.0 11/03/17 05:25 Glucose 86 mg/dL (70-105) 11/03/17 05:25 Whole Bld Lactic Acid 1.50 mmol/L (0.60-1.99) 11/02/17 01:20 Calcium 7.9 mg/dL (8.6-10.3) L 11/03/17 05:25 Total Bilirubin 1.3 mg/dL (0.3-1.0) H 11/03/17 05:25 Direct Bilirubin 0.54 mg/dL (0.0-0.2) H 11/03/17 05:25 AST 38 U/L (13-39) 11/03/17 05:25 ALT 20 U/L (7-52) 11/03/17 05:25 Alkaline Phosphatase 60 U/L (34-104) 11/03/17 05:25 Ammonia 69 umol/L (16-53) H 11/04/17 10:34 Creatine Kinase 33 U/L (30-223) 11/02/17 01:20 Troponin I 0.02 ng/mL (0.01-0.05) 11/02/17 01:20 Total Protein 5.5 gm/dL (6.0-8.3) L 11/03/17 05:25 Albumin 1.9 gm/dL (4.2-5.5) L 11/03/17 05:25 Globulin 3.6 gm/dL 11/03/17 05:25 Albumin/Globulin Ratio 0.5 (1.0-1.8) L 11/03/17 05:25 Tumor Marker AFP 7.5 ng/mL (0.0-8.3) 11/03/17 05:25 TSH 3.45 uIU/ml (0.34-5.60) 11/03/17 05:25 Urine Source MIDSTREAM 11/03/17 22:20 Urine Color BROWN 11/03/17 22:20 Urine Clarity CLEAR (CLEAR) 11/03/17 22:20 Urine pH 6.5 (4.6 - 8.0) 11/03/17 22:20 Ur Specific [place] 1.025 (1.005-1.030) 11/03/17 22:20 Urine Protein TRACE mg/dL (NEGATIVE) 11/03/17 22:20 Urine Glucose (UA) NEGATIVE mg/dL (NEGATIVE) 11/03/17 22:20 Urine Ketones TRACE mg/dL (NEGATIVE) 11/03/17 22:20 Urine Blood TRACE (NEGATIVE) 11/03/17 22:20 Urine Nitrate NEGATIVE (NEGATIVE) 11/03/17 22:20 Urine Bilirubin MODERATE (NEGATIVE) H 11/03/17 22:20 Urine Urobilinogen 1.0 E.U./dL (0.2 - 1.0) 11/03/17 22:20 Ur Leukocyte Esterase NEGATIVE (NEGATIVE) 11/03/17 22:20 Urine RBC 0-2 /hpf (0-5) H 11/03/17 22:20 Urine WBC 0-2 /hpf (0-5) 11/03/17 22:20 Ur Epithelial Cells NONE SEEN /lpf (FEW) 11/03/17 22:20 Urine Bacteria NONE SEEN /hpf (NONE SEEN) 11/03/17 22:20 Urine Opiates Screen POSITIVE (NEGATIVE) H 11/03/17 22:20 Urine Methadone Screen NEGATIVE (NEGATIVE) 11/03/17 22:20 Ur Barbiturates Screen NEGATIVE (NEGATIVE) 11/03/17 22:20 Ur Tricyclics Screen NEGATIVE (NEGATIVE) 11/03/17 22:20 Ur Phencyclidine Scrn NEGATIVE (NEGATIVE) 11/03/17 22:20 Amphetamines Screen NEGATIVE (NEGATIVE) 11/03/17 22:20 U Methamphetamines Scrn NEGATIVE (NEGATIVE) 11/03/17 22:20 U Benzodiazepines Scrn NEGATIVE (NEGATIVE) 11/03/17 22:20 U Cocaine Metab Screen NEGATIVE (NEGATIVE) 11/03/17 22:20 U Cannabinoids Screen NEGATIVE (NEGATIVE) 11/03/17 22:20 - Physical Exam Vitals and I&O: Vital Signs Temp 98.3 F 11/04/17 17:13 Pulse 88 11/04/17 17:13 Resp 18 11/04/17 17:13 BP 113/61 11/04/17 17:13 Pulse Ox 98 11/04/17 17:13 Intake & Output 11/03/17 11/04/17 11/04/17 18:59 06:59 18:59 Intake Total 1200 300 Balance 1200 300 Weight (lbs) 84.822 kg 86.137 kg 85.729 kg Intake: Oral 1200 300 Other: # Voids 3 # Bowel Movements 0 Weight Source Bedscale Bedscale Bedscale Active Medications: Current Medications Albuterol/Ipratropium (Duoneb Neb) 3 ml HHN [id number] [facility] Stop: 01/01/18 14:59 Last Admin: 11/04/17 15:29 Dose: 3 ml Artificial Tears (Artificial Tears Ophth Soln) 1 drop EACH EYE Q4HR PRN PRN Reason: Dry Eye Stop: 01/02/18 12:11 Last Admin: 11/04/17 15:41 Dose: 1 drop Budesonide (Pulmicort) 0.5 mg HHN BIDRT [facility] Stop: 01/01/18 18:59 Last Admin: 11/04/17 07:45 Dose: 0.5 mg Dicyclomine HCl (Bentyl) 20 mg PO BID [facility] Stop: 01/02/18 08:59 Last Admin: 11/04/17 17:18 Dose: 20 mg Escitalopram Oxalate (Lexapro) 5 mg PO DAILY [facility] PRN Reason: Protocol Stop: 01/02/18 08:59 Ferrous Sulfate (Iron) 325 mg PO DAILY [facility] Stop: 01/02/18 08:59 Last Admin: 11/04/17 09:06 Dose: 325 mg Folic Acid (Folate) 1 mg PO DAILY [facility] Stop: 01/01/18 10:44 Last Admin: 11/04/17 09:05 Dose: 1 mg Hydromorphone HCl (Dilaudid) 1 mg IVP Q6H PRN PRN Reason: Severe Pain Stop: 01/02/18 10:58 Last Admin: 11/04/17 14:56 Dose: 1 mg Hydroxyzine HCl (Atarax) 25 mg PO TID [facility] PRN Reason: Protocol Stop: 01/02/18 08:59 Last Admin: 11/04/17 14:56 Dose: 25 mg Lactulose (Cephulac) 60 gm PO QID [facility] Stop: 01/02/18 08:59 Last Admin: 11/04/17 17:17 Dose: Not Given Levocarnitine (Carnitor) 330 mg PO BID [facility] Stop: 01/02/18 08:59 Last Admin: 11/04/17 17:17 Dose: 330 mg Multivitamins/Vitamin C (Theragran) 1 tab PO DAILY [facility] Stop: 01/01/18 10:44 Last Admin: 11/04/17 09:06 Dose: 1 tab Ondansetron HCl (Zofran) 4 mg IV Q8H PRN PRN Reason: Nausea / Vomiting Stop: 01/01/18 20:43 Last Admin: 11/02/17 21:39 Dose: 4 mg Rifaximin (Xifaxan) 600 mg PO BID [facility] Stop: 01/02/18 16:59 Last Admin: 11/04/17 17:18 Dose: 600 mg Thiamine HCl (Vitamin B1) 100 mg PO DAILY [facility] Stop: 01/01/18 10:44 Last Admin: 11/04/17 09:06 Dose: 100 mg General: Alert, No acute distress, Other (anxious) HEENT: Atraumatic Neck: Supple Lungs: Clear to auscultation Abdomen: Bowel sounds (normal), Soft, Tender (diffuse but soft and no guarding) - Procedures Procedures: Procedures Procedure Code Date EXCISION OF DUODENUM, ENDO, DIAGN [id number] 06/06/17 EXCISION OF STOMACH, ENDO, DIAGN [id number] 06/06/17 EXCISION OF TRANSVERSE COLON, ENDO [id number] 06/06/17 Assessment/Plan - Assessment Assessment: 1. Abdominal pain 2. Hepatic encephalopathy 3. Cirrhosis - Plan Plan: 1. Abdominal pain Chronic extensive W/U before No physical findings 2. Hepatic encephalopathy Better Cont Xifaxan and lactulose 3. Cirrhosis Normal AFT Had CT before at [facility]
--- NOTE | 2017-11-04 18:01 | Progress Notes ---
DATE: 11/04/2017 PSYCHIATRIC PROGRESS NOTE Chart reviewed and the patient interviewed. Also, discussed the patient's condition with the staff and reviewed records and labs. The patient continued to be guarded and withdrawn at this time, but still have episodes of irritability and anger. The patient also still has episodes of agitation. The patient also is interacting minimally with others. He also is compliance taking his medications with no side effects of medications. ASSESSMENT: The patient is currently calm. TREATMENT PLAN: Continue monitoring behavior and continue to follow up. [facility]# [id number]
--- NOTE | 2017-11-05 00:27 | Progress Notes ---
DATE: 11/04/2017 PROBLEM LIST: 1. COPD acute exacerbation. 2. Chronic hepatic disease. 3. Chronic opioid dependency. 4. Significant history of psychological issues. SYMPTOMS: Nil. He states he cannot eat. He is losing weight. Complains of pain and aches everywhere. No specific new symptoms. Breathing seems to be little better. PHYSICAL EXAMINATION: VITAL SIGNS: Recorded temperature is 98.3, blood pressure 113/61, saturation 98%. NECK: Vein is not visualized. CHEST: Shows clear with diminished air entry with occasional rhonchi. HEART: Regular. ABDOMEN: Soft, nontender. ASSESSMENT: The patient clinically appears to be fairly stable respiratory schwab, significantly anorexic with chronic hepatic disease as well as opioid dependency. PLANS AND SUGGESTIONS: We will continue current respiratory care, inhalation treatment, etc., and go from there. JOB# [id number]
[2017-11-05] MEDS: HYDROmorphone 2 mg/mL 1mL Vial IVP PRN ×4 (03:00→22:20)
[2017-11-05] MEDS: Polyvinyl Alcohol Ophth Soln 15 mL Bottle EACH EYE PRN ×3 (04:15→15:48)
[2017-11-05 06:39] LABS: HEMOGLOBIN 8.3 gm/dL (12-16)
[2017-11-05 06:57] LABS: HEMATOCRIT 24.4 % (41.0-60); MEAN CELL VOLUME 85.2 fl (80-99); MEAN PLATELET VOLUME 7.7 fl; PLATELET COUNT 61 Th/cmm (150-400); RED BLOOD COUNT 2.86 Mil/cmm (3.80-5.80); RED CELL DISTRIBUTION WIDTH 15.6 % (11.5-20.0); WHITE BLOOD COUNT 4.3 Th/cmm (4.8-10.8)
[2017-11-05 07:07] LABS: ALB/GLOB RATIO 0.6 (1.0-1.8); ALKALINE PHOSPHATASE 71 U/L (34-104); ANION GAP 5.2 (7.0-16.0); BILIRUBIN,TOTAL 1.1 mg/dL (0.3-1.0); BUN - UREA NITROGEN 9 mg/dL (7-25); CARBON DIOXIDE 24.7 mEq/L (21.0-31.0); CHLORIDE 106 mEq/L (98-107); CREATININE - SERUM 0.6 mg/dL (0.7-1.3); GFR AFRICAN-AMERICAN > 60.0 ml/min (>90); GFR NON AFRICAN-AMERICAN > 60.0 ml/min; GLUCOSE 99 mg/dL (70-105); POTASSIUM SERUM 3.9 mEq/L (3.5-5.1); SGOT 63 U/L (13-39); SGPT/ALT 23 U/L (7-52); SODIUM SERUM 132 mEq/L (136-145); TOTAL PROTEIN,SERUM 5.6 gm/dL (6.0-8.3)
[2017-11-05 07:10] LABS: MANUAL DIFF REQUIRED? YES
[2017-11-05] MEDS: Budesonide 0.5 Mg/2 mL Ud HHN SCH ×2 (07:13→19:07)
[2017-11-05] MEDS: Albuterol/Ipratropium Neb 3 ML AERS HHN SCH ×4 (07:13→19:07)
[2017-11-05 07:26] LABS: BASOPHIL 0 % (0-3); EOSINOPHIL 10 % (0-5); LYMPHOCYTE 36 % (20-50); MONOCYTE 7 % (2-10); NEUTROPHILS 47 % (40-80); PLATELET ESTIMATE DECREASED PLATELETS (NORMAL); TOTAL CELLS COUNTED 100
[2017-11-05] MEDS: Multivitamin Tab PO SCH (10:14)
[2017-11-05] MEDS: Ferrous Sulfate 325 MG TAB PO SCH (10:14)
[2017-11-05] MEDS: Dicyclomine 10 mg Cap PO SCH ×2 (10:16→17:59)
--- NOTE | 2017-11-05 10:44 | GI Progress Note ---
Subjective - Review of Systems Service Date: 11/05/17 Events since last encounter: no events Subjective: C/O diffuse abd pain Cannot eat anything Objective - Results Result Diagrams: 11/05/17 06:03 11/05/17 06:03 Recent Labs: Laboratory Last Values WBC 4.3 Th/cmm (4.8-10.8) L 11/05/17 06:03 RBC 2.86 Mil/cmm (3.80-5.80) L 11/05/17 06:03 Hgb 8.3 gm/dL (12-16) L 11/05/17 06:03 Hct 24.4 % (41.0-60) L 11/05/17 06:03 MCV 85.2 fl (80-99) 11/05/17 06:03 MCH 29.0 pg (27.0-31.0) 11/05/17 06:03 MCHC Differential 34.0 pg (28.0-36.0) 11/05/17 06:03 RDW 15.6 % (11.5-20.0) 11/05/17 06:03 Plt Count 61 Th/cmm (150-400) L 11/05/17 06:03 MPV 7.7 fl 11/05/17 06:03 Neutrophils % 40.0 % (40.0-80.0) 11/03/17 05:25 Band Neutrophils % 1 % (0-10) 11/04/17 06:10 Lymphocytes % 36.1 % (20.0-50.0) 11/03/17 05:25 Monocytes % 14.0 % (2.0-10.0) H 11/03/17 05:25 Eosinophils % 8.5 % (0.0-5.0) H 11/03/17 05:25 Basophils % 1.4 % (0.0-2.0) 11/03/17 05:25 Neutrophils (Manual) 47 % (40-80) 11/05/17 06:03 Lymphocytes 36 % (20-50) 11/05/17 06:03 Monocytes 7 % (2-10) 11/05/17 06:03 Eosinophils 10 % (0-5) H 11/05/17 06:03 Basophils 0 % (0-3) 11/05/17 06:03 Platelet Estimate DECREASED PLATELETS (NORMAL) 11/05/17 06:03 Smear Path Review [employer] 11/02/17 01:20 PT 15.3 SECONDS (9.5-11.5) H 11/02/17 01:20 INR 1.44 (0.5-1.4) H 11/02/17 01:20 PTT (Actin FS) 31.5 SECONDS (26.0-38.0) 11/02/17 01:20 Specimen Source ARTERIAL 11/03/17 09:02 Sample Site Left Radial 11/03/17 09:02 pH 7.40 (7.35-7.45) 11/03/17 09:02 pCO2 36.0 mmHg (35.0-45.0) 11/03/17 09:02 pO2 103.0 mmHg (80.0-100.0) H 11/03/17 09:02 HCO3 25.0 mEq/L (20.0-26.0) 11/03/17 09:02 Base Excess 1.0 mEq/L (-3.0-3.0) 11/03/17 09:02 O2 Saturation 98.0 % (92.0-100.0) 11/03/17 09:02 Parker Test Y 11/03/17 09:02 Vent Rate N/A 11/03/17 09:02 Inspired O2 28 11/03/17 09:02 Tidal Volume N/A 11/03/17 09:02 PEEP N/A 11/03/17 09:02 Pressure (ins/psv/peep) N/A 11/03/17 09:02 Critical Value O.WANG 11/03/17 09:02 Sodium 132 mEq/L (136-145) L 11/05/17 06:03 Potassium 3.9 mEq/L (3.5-5.1) 11/05/17 06:03 Chloride 106 mEq/L (98-107) 11/05/17 06:03 Carbon Dioxide 24.7 mEq/L (21.0-31.0) 11/05/17 06:03 Anion Gap 5.2 (7.0-16.0) L 11/05/17 06:03 BUN 9 mg/dL (7-25) 11/05/17 06:03 Creatinine 0.6 mg/dL (0.7-1.3) L 11/05/17 06:03 Est GFR ( Amer) > 60.0 ml/min (>90) 11/05/17 06:03 Est GFR (Non-Af Amer) > 60.0 ml/min 11/05/17 06:03 BUN/Creatinine Ratio 15.0 11/05/17 06:03 Glucose 99 mg/dL (70-105) 11/05/17 06:03 Whole Bld Lactic Acid 1.50 mmol/L (0.60-1.99) 11/02/17 01:20 Calcium 8.0 mg/dL (8.6-10.3) L 11/05/17 06:03 Total Bilirubin 1.1 mg/dL (0.3-1.0) H 11/05/17 06:03 Direct Bilirubin 0.54 mg/dL (0.0-0.2) H 11/03/17 05:25 AST 63 U/L (13-39) H 11/05/17 06:03 ALT 23 U/L (7-52) 11/05/17 06:03 Alkaline Phosphatase 71 U/L (34-104) 11/05/17 06:03 Ammonia 69 umol/L (16-53) H 11/04/17 10:34 Creatine Kinase 33 U/L (30-223) 11/02/17 01:20 Troponin I 0.02 ng/mL (0.01-0.05) 11/02/17 01:20 Total Protein 5.6 gm/dL (6.0-8.3) L 11/05/17 06:03 Albumin 2.0 gm/dL (4.2-5.5) L 11/05/17 06:03 Globulin 3.6 gm/dL 11/05/17 06:03 Albumin/Globulin Ratio 0.6 (1.0-1.8) L 11/05/17 06:03 Tumor Marker AFP 7.5 ng/mL (0.0-8.3) 11/03/17 05:25 TSH 3.45 uIU/ml (0.34-5.60) 11/03/17 05:25 Urine Source MIDSTREAM 11/03/17 22:20 Urine Color BROWN 11/03/17 22:20 Urine Clarity CLEAR (CLEAR) 11/03/17 22:20 Urine pH 6.5 (4.6 - 8.0) 11/03/17 22:20 Ur Specific [place] 1.025 (1.005-1.030) 11/03/17 22:20 Urine Protein TRACE mg/dL (NEGATIVE) 11/03/17 22:20 Urine Glucose (UA) NEGATIVE mg/dL (NEGATIVE) 11/03/17 22:20 Urine Ketones TRACE mg/dL (NEGATIVE) 11/03/17 22:20 Urine Blood TRACE (NEGATIVE) 11/03/17 22:20 Urine Nitrate NEGATIVE (NEGATIVE) 11/03/17 22:20 Urine Bilirubin MODERATE (NEGATIVE) H 11/03/17 22:20 Urine Urobilinogen 1.0 E.U./dL (0.2 - 1.0) 11/03/17 22:20 Ur Leukocyte Esterase NEGATIVE (NEGATIVE) 11/03/17 22:20 Urine RBC 0-2 /hpf (0-5) H 11/03/17 22:20 Urine WBC 0-2 /hpf (0-5) 11/03/17 22:20 Ur Epithelial Cells NONE SEEN /lpf (FEW) 11/03/17 22:20 Urine Bacteria NONE SEEN /hpf (NONE SEEN) 11/03/17 22:20 Urine Opiates Screen POSITIVE (NEGATIVE) H 11/03/17 22:20 Urine Methadone Screen NEGATIVE (NEGATIVE) 11/03/17 22:20 Ur Barbiturates Screen NEGATIVE (NEGATIVE) 11/03/17 22:20 Ur Tricyclics Screen NEGATIVE (NEGATIVE) 11/03/17 22:20 Ur Phencyclidine Scrn NEGATIVE (NEGATIVE) 11/03/17 22:20 Amphetamines Screen NEGATIVE (NEGATIVE) 11/03/17 22:20 U Methamphetamines Scrn NEGATIVE (NEGATIVE) 11/03/17 22:20 U Benzodiazepines Scrn NEGATIVE (NEGATIVE) 11/03/17 22:20 U Cocaine Metab Screen NEGATIVE (NEGATIVE) 11/03/17 22:20 U Cannabinoids Screen NEGATIVE (NEGATIVE) 11/03/17 22:20 - Physical Exam Vitals and I&O: Vital Signs Temp 97.4 F 11/05/17 08:00 Pulse 90 11/05/17 08:00 Resp 18 11/05/17 08:00 BP 115/63 11/05/17 08:00 Pulse Ox 95 11/05/17 08:00 Intake & Output 11/04/17 11/05/17 11/05/17 18:59 06:59 18:59 Weight (lbs) 85.729 kg 85.729 kg Other: Weight Source Bedscale Bedscale Active Medications: Current Medications Albuterol/Ipratropium (Duoneb Neb) 3 ml HHN [id number] [facility] Stop: 01/01/18 14:59 Last Admin: 11/05/17 07:13 Dose: 3 ml Artificial Tears (Artificial Tears Ophth Soln) 1 drop EACH EYE Q4HR PRN PRN Reason: Dry Eye Stop: 01/02/18 12:11 Last Admin: 11/05/17 10:28 Dose: 1 drop Budesonide (Pulmicort) 0.5 mg HHN BIDRT [facility] Stop: 01/01/18 18:59 Last Admin: 11/05/17 07:13 Dose: 0.5 mg Dicyclomine HCl (Bentyl) 20 mg PO BID [facility] Stop: 01/02/18 08:59 Last Admin: 11/05/17 10:16 Dose: 20 mg Escitalopram Oxalate (Lexapro) 5 mg PO DAILY [facility] PRN Reason: Protocol Stop: 01/02/18 08:59 Ferrous Sulfate (Iron) 325 mg PO DAILY [facility] Stop: 01/02/18 08:59 Last Admin: 11/05/17 10:14 Dose: 325 mg Folic Acid (Folate) 1 mg PO DAILY [facility] Stop: 01/01/18 10:44 Last Admin: 11/05/17 10:19 Dose: 1 mg Hydromorphone HCl (Dilaudid) 1 mg IVP Q6H PRN PRN Reason: Severe Pain Stop: 01/02/18 10:58 Last Admin: 11/05/17 10:11 Dose: 1 mg Hydroxyzine HCl (Atarax) 25 mg PO TID [facility] PRN Reason: Protocol Stop: 01/02/18 08:59 Last Admin: 11/05/17 10:22 Dose: 25 mg Lactulose (Cephulac) 60 gm PO QID [facility] Stop: 01/02/18 08:59 Last Admin: 11/04/17 17:17 Dose: Not Given Levocarnitine (Carnitor) 330 mg PO BID [facility] Stop: 01/02/18 08:59 Last Admin: 11/05/17 10:17 Dose: 330 mg Multivitamins/Vitamin C (Theragran) 1 tab PO DAILY [facility] Stop: 01/01/18 10:44 Last Admin: 11/05/17 10:14 Dose: 1 tab Ondansetron HCl (Zofran) 4 mg IV Q8H PRN PRN Reason: Nausea / Vomiting Stop: 01/01/18 20:43 Last Admin: 11/02/17 21:39 Dose: 4 mg Rifaximin (Xifaxan) 600 mg PO BID [facility] Stop: 01/02/18 16:59 Last Admin: 11/05/17 10:14 Dose: 600 mg Thiamine HCl (Vitamin B1) 100 mg PO DAILY [facility] Stop: 01/01/18 10:44 Last Admin: 11/05/17 10:16 Dose: 100 mg General: Alert, No acute distress, Other (anxious) HEENT: Atraumatic Neck: Supple Cardiovascular: Regular rate, Normal S1, Normal S2 Lungs: Clear to auscultation Abdomen: Bowel sounds (normal), Soft, Tender (diffuse but soft and no guarding) - Procedures Procedures: Procedures Procedure Code Date EXCISION OF DUODENUM, ENDO, DIAGN [id number] 06/06/17 EXCISION OF STOMACH, ENDO, DIAGN [id number] 06/06/17 EXCISION OF TRANSVERSE COLON, ENDO [id number] 06/06/17 Assessment/Plan - Assessment Assessment: 1. Abdominal pain 2. Hepatic encephalopathy 3. Cirrhosis - Plan Plan: 1. Abdominal pain Chronic extensive W/U before No physical findings Add elavil 2. Hepatic encephalopathy Better Cont Xifaxan and lactulose 3. Cirrhosis Normal AFT Had CT before at [facility]
--- NOTE | 2017-11-05 16:10 | Infectious Disease Prog Note ---
Infectious Disease Subjective - Review of Systems Service Date: 11/05/17 Subjective: No new change, no fever. c/o old pain in his abdomen. Vomiting. not eating enough food. Infectious Disease Objective - Results Result Diagrams: 11/05/17 06:03 11/05/17 06:03 Recent Labs: Laboratory Last Values WBC 4.3 Th/cmm (4.8-10.8) L 11/05/17 06:03 RBC 2.86 Mil/cmm (3.80-5.80) L 11/05/17 06:03 Hgb 8.3 gm/dL (12-16) L 11/05/17 06:03 Hct 24.4 % (41.0-60) L 11/05/17 06:03 MCV 85.2 fl (80-99) 11/05/17 06:03 MCH 29.0 pg (27.0-31.0) 11/05/17 06:03 MCHC Differential 34.0 pg (28.0-36.0) 11/05/17 06:03 RDW 15.6 % (11.5-20.0) 11/05/17 06:03 Plt Count 61 Th/cmm (150-400) L 11/05/17 06:03 MPV 7.7 fl 11/05/17 06:03 Neutrophils % 40.0 % (40.0-80.0) 11/03/17 05:25 Band Neutrophils % 1 % (0-10) 11/04/17 06:10 Lymphocytes % 36.1 % (20.0-50.0) 11/03/17 05:25 Monocytes % 14.0 % (2.0-10.0) H 11/03/17 05:25 Eosinophils % 8.5 % (0.0-5.0) H 11/03/17 05:25 Basophils % 1.4 % (0.0-2.0) 11/03/17 05:25 Neutrophils (Manual) 47 % (40-80) 11/05/17 06:03 Lymphocytes 36 % (20-50) 11/05/17 06:03 Monocytes 7 % (2-10) 11/05/17 06:03 Eosinophils 10 % (0-5) H 11/05/17 06:03 Basophils 0 % (0-3) 11/05/17 06:03 Platelet Estimate DECREASED PLATELETS (NORMAL) 11/05/17 06:03 Smear Path Review [employer] 11/02/17 01:20 PT 15.3 SECONDS (9.5-11.5) H 11/02/17 01:20 INR 1.44 (0.5-1.4) H 11/02/17 01:20 PTT (Actin FS) 31.5 SECONDS (26.0-38.0) 11/02/17 01:20 Specimen Source ARTERIAL 11/03/17 09:02 Sample Site Left Radial 11/03/17 09:02 pH 7.40 (7.35-7.45) 11/03/17 09:02 pCO2 36.0 mmHg (35.0-45.0) 11/03/17 09:02 pO2 103.0 mmHg (80.0-100.0) H 11/03/17 09:02 HCO3 25.0 mEq/L (20.0-26.0) 11/03/17 09:02 Base Excess 1.0 mEq/L (-3.0-3.0) 11/03/17 09:02 O2 Saturation 98.0 % (92.0-100.0) 11/03/17 09:02 Parker Test Y 11/03/17 09:02 Vent Rate N/A 11/03/17 09:02 Inspired O2 28 11/03/17 09:02 Tidal Volume N/A 11/03/17 09:02 PEEP N/A 11/03/17 09:02 Pressure (ins/psv/peep) N/A 11/03/17 09:02 Critical Value O.WANG 11/03/17 09:02 Sodium 132 mEq/L (136-145) L 11/05/17 06:03 Potassium 3.9 mEq/L (3.5-5.1) 11/05/17 06:03 Chloride 106 mEq/L (98-107) 11/05/17 06:03 Carbon Dioxide 24.7 mEq/L (21.0-31.0) 11/05/17 06:03 Anion Gap 5.2 (7.0-16.0) L 11/05/17 06:03 BUN 9 mg/dL (7-25) 11/05/17 06:03 Creatinine 0.6 mg/dL (0.7-1.3) L 11/05/17 06:03 Est GFR ( Amer) > 60.0 ml/min (>90) 11/05/17 06:03 Est GFR (Non-Af Amer) > 60.0 ml/min 11/05/17 06:03 BUN/Creatinine Ratio 15.0 11/05/17 06:03 Glucose 99 mg/dL (70-105) 11/05/17 06:03 Whole Bld Lactic Acid 1.50 mmol/L (0.60-1.99) 11/02/17 01:20 Calcium 8.0 mg/dL (8.6-10.3) L 11/05/17 06:03 Total Bilirubin 1.1 mg/dL (0.3-1.0) H 11/05/17 06:03 Direct Bilirubin 0.54 mg/dL (0.0-0.2) H 11/03/17 05:25 AST 63 U/L (13-39) H 11/05/17 06:03 ALT 23 U/L (7-52) 11/05/17 06:03 Alkaline Phosphatase 71 U/L (34-104) 11/05/17 06:03 Ammonia 69 umol/L (16-53) H 11/04/17 10:34 Creatine Kinase 33 U/L (30-223) 11/02/17 01:20 Troponin I 0.02 ng/mL (0.01-0.05) 11/02/17 01:20 Total Protein 5.6 gm/dL (6.0-8.3) L 11/05/17 06:03 Albumin 2.0 gm/dL (4.2-5.5) L 11/05/17 06:03 Globulin 3.6 gm/dL 11/05/17 06:03 Albumin/Globulin Ratio 0.6 (1.0-1.8) L 11/05/17 06:03 Tumor Marker AFP 7.5 ng/mL (0.0-8.3) 11/03/17 05:25 TSH 3.45 uIU/ml (0.34-5.60) 11/03/17 05:25 Urine Source MIDSTREAM 11/03/17 22:20 Urine Color BROWN 11/03/17 22:20 Urine Clarity CLEAR (CLEAR) 11/03/17 22:20 Urine pH 6.5 (4.6 - 8.0) 11/03/17 22:20 Ur Specific [place] 1.025 (1.005-1.030) 11/03/17 22:20 Urine Protein TRACE mg/dL (NEGATIVE) 11/03/17 22:20 Urine Glucose (UA) NEGATIVE mg/dL (NEGATIVE) 11/03/17 22:20 Urine Ketones TRACE mg/dL (NEGATIVE) 11/03/17 22:20 Urine Blood TRACE (NEGATIVE) 11/03/17 22:20 Urine Nitrate NEGATIVE (NEGATIVE) 11/03/17 22:20 Urine Bilirubin MODERATE (NEGATIVE) H 11/03/17 22:20 Urine Urobilinogen 1.0 E.U./dL (0.2 - 1.0) 11/03/17 22:20 Ur Leukocyte Esterase NEGATIVE (NEGATIVE) 11/03/17 22:20 Urine RBC 0-2 /hpf (0-5) H 11/03/17 22:20 Urine WBC 0-2 /hpf (0-5) 11/03/17 22:20 Ur Epithelial Cells NONE SEEN /lpf (FEW) 11/03/17 22:20 Urine Bacteria NONE SEEN /hpf (NONE SEEN) 11/03/17 22:20 Urine Opiates Screen POSITIVE (NEGATIVE) H 11/03/17 22:20 Urine Methadone Screen NEGATIVE (NEGATIVE) 11/03/17 22:20 Ur Barbiturates Screen NEGATIVE (NEGATIVE) 11/03/17 22:20 Ur Tricyclics Screen NEGATIVE (NEGATIVE) 11/03/17 22:20 Ur Phencyclidine Scrn NEGATIVE (NEGATIVE) 11/03/17 22:20 Amphetamines Screen NEGATIVE (NEGATIVE) 11/03/17 22:20 U Methamphetamines Scrn NEGATIVE (NEGATIVE) 11/03/17 22:20 U Benzodiazepines Scrn NEGATIVE (NEGATIVE) 11/03/17 22:20 U Cocaine Metab Screen NEGATIVE (NEGATIVE) 11/03/17 22:20 U Cannabinoids Screen NEGATIVE (NEGATIVE) 11/03/17 22:20 - Physical Exam Vitals and I&O: Vital Signs Temp 98.1 F 11/05/17 11:58 Pulse 87 11/05/17 14:55 Resp 16 11/05/17 14:55 BP 119/63 11/05/17 11:58 Pulse Ox 95 11/05/17 14:55 Intake & Output 11/04/17 11/05/17 11/05/17 18:59 06:59 18:59 Weight (lbs) 85.729 kg 85.729 kg Other: Weight Source Bedscale Bedscale Active Medications: Current Medications Albuterol/Ipratropium (Duoneb Neb) 3 ml HHN [id number] [facility] Stop: 01/01/18 14:59 Last Admin: 11/05/17 14:50 Dose: 3 ml Amitriptyline HCl (Elavil) 10 mg PO BID [facility] PRN Reason: Protocol Stop: 01/04/18 10:44 Last Admin: 11/05/17 14:00 Dose: 10 mg Artificial Tears (Artificial Tears Ophth Soln) 1 drop EACH EYE Q4HR PRN PRN Reason: Dry Eye Stop: 01/02/18 12:11 Last Admin: 11/05/17 15:48 Dose: 1 drop Budesonide (Pulmicort) 0.5 mg HHN BIDRT [facility] Stop: 01/01/18 18:59 Last Admin: 11/05/17 07:13 Dose: 0.5 mg Dicyclomine HCl (Bentyl) 20 mg PO BID [facility] Stop: 01/02/18 08:59 Last Admin: 11/05/17 10:16 Dose: 20 mg Escitalopram Oxalate (Lexapro) 5 mg PO DAILY [facility] PRN Reason: Protocol Stop: 01/02/18 08:59 Ferrous Sulfate (Iron) 325 mg PO DAILY [facility] Stop: 01/02/18 08:59 Last Admin: 11/05/17 10:14 Dose: 325 mg Folic Acid (Folate) 1 mg PO DAILY [facility] Stop: 01/01/18 10:44 Last Admin: 11/05/17 10:19 Dose: 1 mg Hydromorphone HCl (Dilaudid) 1 mg IVP Q6H PRN PRN Reason: Severe Pain Stop: 01/02/18 10:58 Last Admin: 11/05/17 15:45 Dose: 1 mg Hydroxyzine HCl (Atarax) 25 mg PO TID [facility] PRN Reason: Protocol Stop: 01/02/18 08:59 Last Admin: 11/05/17 14:00 Dose: 25 mg Lactulose (Cephulac) 60 gm PO QID [facility] Stop: 01/02/18 08:59 Last Admin: 11/04/17 17:17 Dose: Not Given Levocarnitine (Carnitor) 330 mg PO BID [facility] Stop: 01/02/18 08:59 Last Admin: 11/05/17 10:17 Dose: 330 mg Multivitamins/Vitamin C (Theragran) 1 tab PO DAILY [facility] Stop: 01/01/18 10:44 Last Admin: 11/05/17 10:14 Dose: 1 tab Ondansetron HCl (Zofran) 4 mg IV Q8H PRN PRN Reason: Nausea / Vomiting Stop: 01/01/18 20:43 Last Admin: 11/02/17 21:39 Dose: 4 mg Rifaximin (Xifaxan) 600 mg PO BID [facility] Stop: 01/02/18 16:59 Last Admin: 11/05/17 10:14 Dose: 600 mg Thiamine HCl (Vitamin B1) 100 mg PO DAILY [facility] Stop: 01/01/18 10:44 Last Admin: 11/05/17 10:16 Dose: 100 mg General: no acute distress, well developed, well nourished HEENT: atraumatic, normocephalic, PERRLA, EOMI, moist mucous membrane Neck: supple, no thyromegaly Cardiovascular: S1S2, regular Lungs: clear to auscultation bilaterally, clear to percussion Abdomen: soft, no tender, no distended, no hepatomegaly Extremities: no cyanosis, no clubbing, no edema Neurological: awake, alert, oriented Skin: intact - Procedures Procedures: Procedures Procedure Code Date EXCISION OF DUODENUM, ENDO, DIAGN [id number] 06/06/17 EXCISION OF STOMACH, ENDO, DIAGN [id number] 06/06/17 EXCISION OF TRANSVERSE COLON, ENDO [id number] 06/06/17 Infectious Disease Assmt/Plan - Assessment Assessment: 1. Altered mental status, rule out hepatic encephalopathy, improving. 2. Anemia, stable hemoglobin and hematocrit. 3. Neutropenia, stable. 4. Thrombocytopenia, stable, secondary to cirrhosis. 5. Hepatitis C. 6. Hypertension. 7. Cirrhosis. 8. Asthma, chronic obstructive pulmonary disease. 9. Dyslipidemia. 10. Peptic ulcer disease, gastroesophageal reflux disease. 11. Dementia. 12. Neuropathy. 13. Chronic pain syndrome. 14. History of methicillin-resistant Staphylococcus aureus infection of the left hip. Left hip prosthesis treated, no signs and symptoms of infection at this time. 15. History of open reduction and internal fixation of the left hip. 16. Nausea, vomting and abdominal pain. - Plan Plan: Continue present treatment, Zofran prn. Nutritional Asmnt/Malnutr-PDOC - Dietary Evaluation Malnutrition Findings (Please click <Entered> for more info): Nutritional Asmnt/Malnutrition Start: 11/04/17 10: 32 Text: Status: Complete Freq: Document 11/04/17 10:32 BHAVNA (Rec: 11/04/17 10:38 BHAVNA HERMOSILLO- [email or web address]) Nutritional Asmnt/Malnutrition Patient General Information Diagnosis Hepatic Failure Pertinent Medical Hx/Surgical Hx chronic pain syndrome, dyslipidemia, encephalopathy, COPD, peptic ulcer disease, hep C Subjective Information Pt asleep in bed at time of visit Current Diet Order/ Nutrition Support mechanical soft diet Pertinent Medications Fe, folate, dilaudid, lactulose, theragran, zofran, vit B Pertinent Labs 11/03: Na 132, K 4.0, Cl 106, CO2 23, BUN 6, Cr 0.6, Ca 7.9, glucose 86 Nutritional Hx/Data Height 1.85 m Height (Calculated Centimeters) 185.4 Current Weight (lbs) 85.729 kg Weight (Calculated Kilograms) 85.7 Weight (Calculated Grams) 35841.0 Body Mass Index (BMI) 24.9 GI Symptoms GI Symptoms None Last BM 11/03 Cultural/Ethnic/Mu-Ism Belief Unknown Usual diet at home mechanical soft Skin Integrity/Comment: poppy score 14 Estimated Nutritional Goals BEE in Kcals: Using Current wt Calories/Kcals/Kg 28-33kcals/kg Kcals Calculated 2408-2580kcals/kg Protein: Using Current wt Protein g/k.2g/kg Protein Calculated 103g/day Fluid: ml per MD Nutritional Problem 1. Problem Problem Increased nutrient needs related to Etiology increased nutrient demands Signs/Symptoms: as evidenced by hepatic failure Intervention/Recommendation Comments Recommend mechanical soft diet Recommend Boost BID to help meet estimated needs Expected Outcomes/Goals Expected Outcomes/Goals PO intake >75% of meals
--- NOTE | 2017-11-05 18:15 | Progress Notes ---
DATE: 11/05/2017 SUBJECTIVE: Chart reviewed and the patient interviewed. Also, discussed the patient's condition with the staff and reviewed records and labs. The patient is shaky and the patient has rapid movement of the mouth and seems to be still responding to stimuli. The patient also is still anxious and is still needs lots of redirections. ASSESSMENT: The patient is still psychotic and agitated. TREATMENT PLAN: Continue to monitor his behavior and his condition closely. The patient has shaky mouth and questionable if the patient has a tardive dyskinesia. The patient might be a candidate for Ingrezza. JOB# [id number]
[2017-11-05] MEDS: D5-0.9%NS 1,000 ML IV SCH (23:33)
--- NOTE | 2017-11-06 01:05 | Progress Notes ---
DATE: 11/05/2017 PULMONARY PROGRESS NOTE PROBLEM LIST: 1. Acute exacerbation of chronic obstructive pulmonary disease. 2. Chronic hepatic disease. 3. Opiate dependence. 4. Anorexia with loss of weight. SYMPTOMS: Nil. GCS scan, eat or drink too much. His liver is hurting and complains of aches and pains everywhere. PHYSICAL EXAMINATION: VITAL SIGNS: T-max 98.8, blood pressure 113/63, saturation 95 for most of the time with room air. NECK: No nodes in the neck could be palpated. CHEST: Shows diminished air entry with occasional rhonchi. HEART: Regular. ABDOMEN: Soft, nontender. LABORATORY DATA: The patient's labs show a hemoglobin of 8.3. White [place] 7.3[place] [address]. ASSESSMENT: The patient is clinically stable, quite anorexic, probably chronic opioid dependency, chronic hepatic disorder. PLANS AND SUGGESTIONS: We will go ahead and continue current treatment. Follow through the labs. Consideration for NG tube feeding and/or possibly PPN or TPN and go from there. JOB# [id number]
[2017-11-06] MEDS: HYDROmorphone 2 mg/mL 1mL Vial IVP PRN ×4 (04:19→21:29)
[2017-11-06 06:11] LABS: % BASOPHILS 1.8 % (0.0-2.0); % EOSINOPHILS 10.6 % (0.0-5.0); % LYMPHOCYTES 36.5 % (20.0-50.0); % MONOCYTES 12.6 % (2.0-10.0); % NEUTROPHILS 38.5 % (40.0-80.0); BASOPHILE ABSOLUTE 0.1 Th/cumm (0-0.2); EOSINOPHILE ABSOLUTE 0.4 Th/cmm (0.1-0.4); HEMATOCRIT 24.8 % (41.0-60); HEMOGLOBIN 8.2 gm/dL (12-16); LYMPHOCYTE ABSOLUTE 1.3 Th/cmm (1.5-3.0); MEAN CELL VOLUME 86.2 fl (80-99); MEAN CORPUSCULAR HEMOGLOBIN 28.5 pg (27.0-31.0); MEAN CORPUSCULAR HGB CONC 33.1 pg (28.0-36.0); MEAN PLATELET VOLUME 7.6 fl; MONOCYTE ABSOLUTE 0.5 Th/cmm (0.3-1.0); NEUTROPHILE ABSOLUTE 1.4 Th/cmm (1.8-8.0); PLATELET COUNT 48 Th/cmm (150-400); RED BLOOD COUNT 2.87 Mil/cmm (3.80-5.80); RED CELL DISTRIBUTION WIDTH 15.8 % (11.5-20.0)
[2017-11-06 06:27] LABS: WHITE BLOOD COUNT 3.7 Th/cmm (4.8-10.8)
[2017-11-06 06:29] LABS: ALB/GLOB RATIO 0.6 (1.0-1.8); ALBUMIN 2.1 gm/dL (4.2-5.5); ALKALINE PHOSPHATASE 72 U/L (34-104); ANION GAP 7.2 (7.0-16.0); BILIRUBIN,DIRECT 0.45 mg/dL (0.0-0.2); BILIRUBIN,TOTAL 1.1 mg/dL (0.3-1.0); BUN - UREA NITROGEN 8 mg/dL (7-25); CALCIUM SERUM 8.1 mg/dL (8.6-10.3); CARBON DIOXIDE 23.8 mEq/L (21.0-31.0); CHLORIDE 107 mEq/L (98-107); CREATININE - SERUM 0.6 mg/dL (0.7-1.3); GFR AFRICAN-AMERICAN > 60.0 ml/min (>90); GFR NON AFRICAN-AMERICAN > 60.0 ml/min; GLUCOSE 103 mg/dL (70-105); SGOT 61 U/L (13-39); SGPT/ALT 25 U/L (7-52); SODIUM SERUM 134 mEq/L (136-145); TOTAL PROTEIN,SERUM 5.7 gm/dL (6.0-8.3)
[2017-11-06] MEDS: Budesonide 0.5 Mg/2 mL Ud HHN SCH ×2 (06:56→18:51)
[2017-11-06] MEDS: Albuterol/Ipratropium Neb 3 ML AERS HHN SCH ×4 (06:56→18:50)
[2017-11-06] MEDS: Ferrous Sulfate 325 MG TAB PO SCH (10:35)
[2017-11-06] MEDS: Multivitamin Tab PO SCH (10:35)
[2017-11-06] MEDS: Dicyclomine 10 mg Cap PO SCH ×2 (10:35→17:28)
[2017-11-06] MEDS: Lactulose 10 Gm/15 mL 30mL UDC PO SCH ×4 (10:36→21:52)
--- NOTE | 2017-11-06 10:40 | General Progress Note ---
Subjective - Review of Systems Service Date: 11/06/17 Subjective: NO NEW SXS Objective - Results Result Diagrams: 11/06/17 05:40 11/06/17 05:40 Recent Labs: Laboratory Last Values WBC 3.7 Th/cmm (4.8-10.8) L 11/06/17 05:40 RBC 2.87 Mil/cmm (3.80-5.80) L 11/06/17 05:40 Hgb 8.2 gm/dL (12-16) L 11/06/17 05:40 Hct 24.8 % (41.0-60) L 11/06/17 05:40 MCV 86.2 fl (80-99) 11/06/17 05:40 MCH 28.5 pg (27.0-31.0) 11/06/17 05:40 MCHC Differential 33.1 pg (28.0-36.0) 11/06/17 05:40 RDW 15.8 % (11.5-20.0) 11/06/17 05:40 Plt Count 48 Th/cmm (150-400) L 11/06/17 05:40 MPV 7.6 fl 11/06/17 05:40 Neutrophils % 38.5 % (40.0-80.0) L 11/06/17 05:40 Band Neutrophils % 1 % (0-10) 11/04/17 06:10 Lymphocytes % 36.5 % (20.0-50.0) 11/06/17 05:40 Monocytes % 12.6 % (2.0-10.0) H 11/06/17 05:40 Eosinophils % 10.6 % (0.0-5.0) H 11/06/17 05:40 Basophils % 1.8 % (0.0-2.0) 11/06/17 05:40 Neutrophils (Manual) 47 % (40-80) 11/05/17 06:03 Lymphocytes 36 % (20-50) 11/05/17 06:03 Monocytes 7 % (2-10) 11/05/17 06:03 Eosinophils 10 % (0-5) H 11/05/17 06:03 Basophils 0 % (0-3) 11/05/17 06:03 Platelet Estimate DECREASED PLATELETS (NORMAL) 11/05/17 06:03 Smear Path Review [employer] 11/02/17 01:20 PT 15.3 SECONDS (9.5-11.5) H 11/02/17 01:20 INR 1.44 (0.5-1.4) H 11/02/17 01:20 PTT (Actin FS) 31.5 SECONDS (26.0-38.0) 11/02/17 01:20 Specimen Source ARTERIAL 11/03/17 09:02 Sample Site Left Radial 11/03/17 09:02 pH 7.40 (7.35-7.45) 11/03/17 09:02 pCO2 36.0 mmHg (35.0-45.0) 11/03/17 09:02 pO2 103.0 mmHg (80.0-100.0) H 11/03/17 09:02 HCO3 25.0 mEq/L (20.0-26.0) 11/03/17 09:02 Base Excess 1.0 mEq/L (-3.0-3.0) 11/03/17 09:02 O2 Saturation 98.0 % (92.0-100.0) 11/03/17 09:02 Parker Test Y 11/03/17 09:02 Vent Rate N/A 11/03/17 09:02 Inspired O2 28 11/03/17 09:02 Tidal Volume N/A 11/03/17 09:02 PEEP N/A 11/03/17 09:02 Pressure (ins/psv/peep) N/A 11/03/17 09:02 Critical Value O.WANG 11/03/17 09:02 Sodium 134 mEq/L (136-145) L 11/06/17 05:40 Potassium 4.0 mEq/L (3.5-5.1) 11/06/17 05:40 Chloride 107 mEq/L (98-107) 11/06/17 05:40 Carbon Dioxide 23.8 mEq/L (21.0-31.0) 11/06/17 05:40 Anion Gap 7.2 (7.0-16.0) 11/06/17 05:40 BUN 8 mg/dL (7-25) 11/06/17 05:40 Creatinine 0.6 mg/dL (0.7-1.3) L 11/06/17 05:40 Est GFR ( Amer) > 60.0 ml/min (>90) 11/06/17 05:40 Est GFR (Non-Af Amer) > 60.0 ml/min 11/06/17 05:40 BUN/Creatinine Ratio 13.3 11/06/17 05:40 Glucose 103 mg/dL (70-105) 11/06/17 05:40 Whole Bld Lactic Acid 1.50 mmol/L (0.60-1.99) 11/02/17 01:20 Calcium 8.1 mg/dL (8.6-10.3) L 11/06/17 05:40 Total Bilirubin 1.1 mg/dL (0.3-1.0) H 11/06/17 05:40 Direct Bilirubin 0.45 mg/dL (0.0-0.2) H 11/06/17 05:40 AST 61 U/L (13-39) H 11/06/17 05:40 ALT 25 U/L (7-52) 11/06/17 05:40 Alkaline Phosphatase 72 U/L (34-104) 11/06/17 05:40 Ammonia 70 umol/L (16-53) H 11/06/17 05:40 Creatine Kinase 33 U/L (30-223) 11/02/17 01:20 Troponin I 0.02 ng/mL (0.01-0.05) 11/02/17 01:20 Total Protein 5.7 gm/dL (6.0-8.3) L 11/06/17 05:40 Albumin 2.1 gm/dL (4.2-5.5) L 11/06/17 05:40 Globulin 3.6 gm/dL 11/06/17 05:40 Albumin/Globulin Ratio 0.6 (1.0-1.8) L 11/06/17 05:40 Tumor Marker AFP 7.5 ng/mL (0.0-8.3) 11/03/17 05:25 TSH 3.45 uIU/ml (0.34-5.60) 11/03/17 05:25 Urine Source MIDSTREAM 11/03/17 22:20 Urine Color BROWN 11/03/17 22:20 Urine Clarity CLEAR (CLEAR) 11/03/17 22:20 Urine pH 6.5 (4.6 - 8.0) 11/03/17 22:20 Ur Specific [place] 1.025 (1.005-1.030) 11/03/17 22:20 Urine Protein TRACE mg/dL (NEGATIVE) 11/03/17 22:20 Urine Glucose (UA) NEGATIVE mg/dL (NEGATIVE) 11/03/17 22:20 Urine Ketones TRACE mg/dL (NEGATIVE) 11/03/17 22:20 Urine Blood TRACE (NEGATIVE) 11/03/17 22:20 Urine Nitrate NEGATIVE (NEGATIVE) 11/03/17 22:20 Urine Bilirubin MODERATE (NEGATIVE) H 11/03/17 22:20 Urine Urobilinogen 1.0 E.U./dL (0.2 - 1.0) 11/03/17 22:20 Ur Leukocyte Esterase NEGATIVE (NEGATIVE) 11/03/17 22:20 Urine RBC 0-2 /hpf (0-5) H 11/03/17 22:20 Urine WBC 0-2 /hpf (0-5) 11/03/17 22:20 Ur Epithelial Cells NONE SEEN /lpf (FEW) 11/03/17 22:20 Urine Bacteria NONE SEEN /hpf (NONE SEEN) 11/03/17 22:20 Urine Opiates Screen POSITIVE (NEGATIVE) H 11/03/17 22:20 Urine Methadone Screen NEGATIVE (NEGATIVE) 11/03/17 22:20 Ur Barbiturates Screen NEGATIVE (NEGATIVE) 11/03/17 22:20 Ur Tricyclics Screen NEGATIVE (NEGATIVE) 11/03/17 22:20 Ur Phencyclidine Scrn NEGATIVE (NEGATIVE) 11/03/17 22:20 Amphetamines Screen NEGATIVE (NEGATIVE) 11/03/17 22:20 U Methamphetamines Scrn NEGATIVE (NEGATIVE) 11/03/17 22:20 U Benzodiazepines Scrn NEGATIVE (NEGATIVE) 11/03/17 22:20 U Cocaine Metab Screen NEGATIVE (NEGATIVE) 11/03/17 22:20 U Cannabinoids Screen NEGATIVE (NEGATIVE) 11/03/17 22:20 - Physical Exam Vitals and I&O: Vital Signs Temp 98.1 F 11/06/17 08:02 Pulse 85 11/06/17 10:16 Resp 20 11/06/17 10:16 BP 128/64 11/06/17 08:02 Pulse Ox 95 11/06/17 10:16 Intake & Output 11/05/17 11/06/17 11/06/17 18:59 06:59 18:59 Intake Total 390 Balance 390 Weight (lbs) 85.729 kg 86.273 kg Intake: Oral 390 Other: Weight Source Bedscale Bedscale Active Medications: Current Medications Albuterol/Ipratropium (Duoneb Neb) 3 ml HHN [id number] ON [facility] OF [facility] Stop: 01/01/18 14:59 Last Admin: 11/06/17 10:16 Dose: Not Given Amitriptyline HCl (Elavil) 10 mg PO BID AVRIL PRN Reason: Protocol Stop: 01/04/18 10:44 Last Admin: 11/05/17 17:59 Dose: 10 mg Artificial Tears (Artificial Tears Ophth Soln) 1 drop EACH EYE Q4HR PRN PRN Reason: Dry Eye Stop: 01/02/18 12:11 Last Admin: 11/05/17 15:48 Dose: 1 drop Budesonide (Pulmicort) 0.5 mg HHN BIDRT ON [facility] Stop: 01/01/18 18:59 Last Admin: 11/06/17 06:56 Dose: 0.5 mg Dicyclomine HCl (Bentyl) 20 mg PO BID [facility] Stop: 01/02/18 08:59 Last Admin: 11/05/17 17:59 Dose: 20 mg Escitalopram Oxalate (Lexapro) 5 mg PO DAILY AVRIL PRN Reason: Protocol Stop: 01/02/18 08:59 Ferrous Sulfate (Iron) 325 mg PO DAILY [facility] Stop: 01/02/18 08:59 Last Admin: 11/05/17 10:14 Dose: 325 mg Folic Acid (Folate) 1 mg PO DAILY [facility] Stop: 01/01/18 10:44 Last Admin: 11/05/17 10:19 Dose: 1 mg Hydromorphone HCl (Dilaudid) 1 mg IVP Q6H PRN PRN Reason: Severe Pain Stop: 01/02/18 10:58 Last Admin: 11/06/17 10:30 Dose: 1 mg Hydroxyzine HCl (Atarax) 25 mg PO TID AVRIL PRN Reason: Protocol Stop: 01/02/18 08:59 Last Admin: 11/05/17 22:20 Dose: 25 mg Dextrose/Sodium Chloride (D5-0.9%Ns) 1,000 mls @ 60 mls/hr IV .[id number] ON [facility] Stop: 01/04/18 22:14 Last Admin: 11/05/17 23:33 Dose: 60 mls/hr Lactulose (Cephulac) 60 gm PO QID ON [facility] Stop: 01/02/18 08:59 Last Admin: 11/04/17 17:17 Dose: Not Given Levocarnitine (Carnitor) 330 mg PO BID ON [facility] Stop: 01/02/18 08:59 Last Admin: 11/05/17 10:17 Dose: 330 mg Multivitamins/Vitamin C (Theragran) 1 tab PO DAILY [facility] Stop: 01/01/18 10:44 Last Admin: 11/05/17 10:14 Dose: 1 tab Ondansetron HCl (Zofran) 4 mg IV Q8H PRN PRN Reason: Nausea / Vomiting Stop: 01/01/18 20:43 Last Admin: 11/02/17 21:39 Dose: 4 mg Rifaximin (Xifaxan) 600 mg PO BID ON [facility] Stop: 01/02/18 16:59 Last Admin: 11/05/17 17:58 Dose: 600 mg Thiamine HCl (Vitamin B1) 100 mg PO DAILY [facility] Stop: 01/01/18 10:44 Last Admin: 11/05/17 10:16 Dose: 100 mg General: Alert, No acute distress, Other (anxious) HEENT: Atraumatic Neck: Supple Cardiovascular: Regular rate, Normal S1, Normal S2 Lungs: Clear to auscultation Abdomen: Bowel sounds (normal), Soft, Tender (diffuse but soft and no guarding) - Procedures Procedures: Procedures Procedure Code Date EXCISION OF DUODENUM, ENDO, DIAGN [id number] 06/06/17 EXCISION OF STOMACH, ENDO, DIAGN [id number] 06/06/17 EXCISION OF TRANSVERSE COLON, ENDO [id number] 06/06/17 Assessment/Plan - Assessment Assessment: * Hepatitis c/ cirrhosis * splenomegaly * Encephalopathy * 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 * Anxiety Monitor without transfusion encephalopathy improving Nutritional Asmnt/Malnutr-PDOC - Dietary Evaluation Malnutrition Findings (Please click <Entered> for more info): Nutritional Asmnt/Malnutrition Start: 11/04/17 10: 32 Text: Status: Complete Freq: Document 11/04/17 10:32 BHAVNA (Rec: 11/04/17 10:38 [facility] Nutritional Asmnt/Malnutrition Patient General Information Diagnosis Hepatic Failure Pertinent Medical Hx/Surgical Hx chronic pain syndrome, dyslipidemia, encephalopathy, COPD, peptic ulcer disease, hep C Subjective Information Pt asleep in bed at time of visit Current Diet Order/ Nutrition Support mechanical soft diet Pertinent Medications Fe, folate, dilaudid, lactulose, theragran, zofran, vit B Pertinent Labs 11/03: Na 132, K 4.0, Cl 106, CO2 23, BUN 6, Cr 0.6, Ca 7.9, glucose 86 Nutritional Hx/Data Height 1.85 m Height (Calculated Centimeters) 185.4 Current Weight (lbs) 85.729 kg Weight (Calculated Kilograms) 85.7 Weight (Calculated Grams) 53290.0 Body Mass Index (BMI) 24.9 GI Symptoms GI Symptoms None Last BM 11/03 Cultural/Ethnic/Taoism Belief Unknown Usual diet at home mechanical soft Skin Integrity/Comment: poppy score 14 Estimated Nutritional Goals BEE in Kcals: Using Current wt Calories/Kcals/Kg 28-33kcals/kg Kcals Calculated 2408-2580kcals/kg Protein: Using Current wt Protein g/k.2g/kg Protein Calculated 103g/day Fluid: ml per MD Nutritional Problem 1. Problem Problem Increased nutrient needs related to Etiology increased nutrient demands Signs/Symptoms: as evidenced by hepatic failure Intervention/Recommendation Comments Recommend mechanical soft diet Recommend Boost BID to help meet estimated needs Expected Outcomes/Goals Expected Outcomes/Goals PO intake >75% of meals
[2017-11-06] MEDS: Polyvinyl Alcohol Ophth Soln 15 mL Bottle EACH EYE PRN (10:55)
[2017-11-06] MEDS ORDERED: IOHEXOL 350mgI/mL 100mL Bottle IVP ONE (12:55)
--- NOTE | 2017-11-06 12:57 | GI Progress Note ---
Subjective - Review of Systems Subjective: NO EVENTS Objective - Results Result Diagrams: 11/06/17 05:40 11/06/17 05:40 Recent Labs: Laboratory Last Values WBC 3.7 Th/cmm (4.8-10.8) L 11/06/17 05:40 RBC 2.87 Mil/cmm (3.80-5.80) L 11/06/17 05:40 Hgb 8.2 gm/dL (12-16) L 11/06/17 05:40 Hct 24.8 % (41.0-60) L 11/06/17 05:40 MCV 86.2 fl (80-99) 11/06/17 05:40 MCH 28.5 pg (27.0-31.0) 11/06/17 05:40 MCHC Differential 33.1 pg (28.0-36.0) 11/06/17 05:40 RDW 15.8 % (11.5-20.0) 11/06/17 05:40 Plt Count 48 Th/cmm (150-400) L 11/06/17 05:40 MPV 7.6 fl 11/06/17 05:40 Neutrophils % 38.5 % (40.0-80.0) L 11/06/17 05:40 Band Neutrophils % 1 % (0-10) 11/04/17 06:10 Lymphocytes % 36.5 % (20.0-50.0) 11/06/17 05:40 Monocytes % 12.6 % (2.0-10.0) H 11/06/17 05:40 Eosinophils % 10.6 % (0.0-5.0) H 11/06/17 05:40 Basophils % 1.8 % (0.0-2.0) 11/06/17 05:40 Neutrophils (Manual) 47 % (40-80) 11/05/17 06:03 Lymphocytes 36 % (20-50) 11/05/17 06:03 Monocytes 7 % (2-10) 11/05/17 06:03 Eosinophils 10 % (0-5) H 11/05/17 06:03 Basophils 0 % (0-3) 11/05/17 06:03 Platelet Estimate DECREASED PLATELETS (NORMAL) 11/05/17 06:03 Smear Path Review [employer] 11/02/17 01:20 PT 15.3 SECONDS (9.5-11.5) H 11/02/17 01:20 INR 1.44 (0.5-1.4) H 11/02/17 01:20 PTT (Actin FS) 31.5 SECONDS (26.0-38.0) 11/02/17 01:20 Specimen Source ARTERIAL 11/03/17 09:02 Sample Site Left Radial 11/03/17 09:02 pH 7.40 (7.35-7.45) 11/03/17 09:02 pCO2 36.0 mmHg (35.0-45.0) 11/03/17 09:02 pO2 103.0 mmHg (80.0-100.0) H 11/03/17 09:02 HCO3 25.0 mEq/L (20.0-26.0) 11/03/17 09:02 Base Excess 1.0 mEq/L (-3.0-3.0) 11/03/17 09:02 O2 Saturation 98.0 % (92.0-100.0) 11/03/17 09:02 Parker Test Y 11/03/17 09:02 Vent Rate N/A 11/03/17 09:02 Inspired O2 28 11/03/17 09:02 Tidal Volume N/A 11/03/17 09:02 PEEP N/A 11/03/17 09:02 Pressure (ins/psv/peep) N/A 11/03/17 09:02 Critical Value O.WANG 11/03/17 09:02 Sodium 134 mEq/L (136-145) L 11/06/17 05:40 Potassium 4.0 mEq/L (3.5-5.1) 11/06/17 05:40 Chloride 107 mEq/L (98-107) 11/06/17 05:40 Carbon Dioxide 23.8 mEq/L (21.0-31.0) 11/06/17 05:40 Anion Gap 7.2 (7.0-16.0) 11/06/17 05:40 BUN 8 mg/dL (7-25) 11/06/17 05:40 Creatinine 0.6 mg/dL (0.7-1.3) L 11/06/17 05:40 Est GFR ( Amer) > 60.0 ml/min (>90) 11/06/17 05:40 Est GFR (Non-Af Amer) > 60.0 ml/min 11/06/17 05:40 BUN/Creatinine Ratio 13.3 11/06/17 05:40 Glucose 103 mg/dL (70-105) 11/06/17 05:40 Whole Bld Lactic Acid 1.50 mmol/L (0.60-1.99) 11/02/17 01:20 Calcium 8.1 mg/dL (8.6-10.3) L 11/06/17 05:40 Total Bilirubin 1.1 mg/dL (0.3-1.0) H 11/06/17 05:40 Direct Bilirubin 0.45 mg/dL (0.0-0.2) H 11/06/17 05:40 AST 61 U/L (13-39) H 11/06/17 05:40 ALT 25 U/L (7-52) 11/06/17 05:40 Alkaline Phosphatase 72 U/L (34-104) 11/06/17 05:40 Ammonia 70 umol/L (16-53) H 11/06/17 05:40 Creatine Kinase 33 U/L (30-223) 11/02/17 01:20 Troponin I 0.02 ng/mL (0.01-0.05) 11/02/17 01:20 Total Protein 5.7 gm/dL (6.0-8.3) L 11/06/17 05:40 Albumin 2.1 gm/dL (4.2-5.5) L 11/06/17 05:40 Globulin 3.6 gm/dL 11/06/17 05:40 Albumin/Globulin Ratio 0.6 (1.0-1.8) L 11/06/17 05:40 Tumor Marker AFP 7.5 ng/mL (0.0-8.3) 11/03/17 05:25 TSH 3.45 uIU/ml (0.34-5.60) 11/03/17 05:25 Urine Source MIDSTREAM 11/03/17 22:20 Urine Color BROWN 11/03/17 22:20 Urine Clarity CLEAR (CLEAR) 11/03/17 22:20 Urine pH 6.5 (4.6 - 8.0) 11/03/17 22:20 Ur Specific [place] 1.025 (1.005-1.030) 11/03/17 22:20 Urine Protein TRACE mg/dL (NEGATIVE) 11/03/17 22:20 Urine Glucose (UA) NEGATIVE mg/dL (NEGATIVE) 11/03/17 22:20 Urine Ketones TRACE mg/dL (NEGATIVE) 11/03/17 22:20 Urine Blood TRACE (NEGATIVE) 11/03/17 22:20 Urine Nitrate NEGATIVE (NEGATIVE) 11/03/17 22:20 Urine Bilirubin MODERATE (NEGATIVE) H 11/03/17 22:20 Urine Urobilinogen 1.0 E.U./dL (0.2 - 1.0) 11/03/17 22:20 Ur Leukocyte Esterase NEGATIVE (NEGATIVE) 11/03/17 22:20 Urine RBC 0-2 /hpf (0-5) H 11/03/17 22:20 Urine WBC 0-2 /hpf (0-5) 11/03/17 22:20 Ur Epithelial Cells NONE SEEN /lpf (FEW) 11/03/17 22:20 Urine Bacteria NONE SEEN /hpf (NONE SEEN) 11/03/17 22:20 Urine Opiates Screen POSITIVE (NEGATIVE) H 11/03/17 22:20 Urine Methadone Screen NEGATIVE (NEGATIVE) 11/03/17 22:20 Ur Barbiturates Screen NEGATIVE (NEGATIVE) 11/03/17 22:20 Ur Tricyclics Screen NEGATIVE (NEGATIVE) 11/03/17 22:20 Ur Phencyclidine Scrn NEGATIVE (NEGATIVE) 11/03/17 22:20 Amphetamines Screen NEGATIVE (NEGATIVE) 11/03/17 22:20 U Methamphetamines Scrn NEGATIVE (NEGATIVE) 11/03/17 22:20 U Benzodiazepines Scrn NEGATIVE (NEGATIVE) 11/03/17 22:20 U Cocaine Metab Screen NEGATIVE (NEGATIVE) 11/03/17 22:20 U Cannabinoids Screen NEGATIVE (NEGATIVE) 11/03/17 22:20 - Physical Exam Vitals and I&O: Vital Signs Temp 98 F 11/06/17 11:42 Pulse 81 11/06/17 11:42 Resp 19 11/06/17 11:42 BP 121/71 11/06/17 11:42 Pulse Ox 100 11/06/17 11:42 Intake & Output 11/05/17 11/06/17 11/06/17 18:59 06:59 18:59 Intake Total 390 Balance 390 Weight (lbs) 85.729 kg 86.273 kg Intake: Oral 390 Other: Weight Source Bedscale Bedscale Active Medications: Current Medications Albuterol/Ipratropium (Duoneb Neb) 3 ml HHN [id number] [facility] Stop: 01/01/18 14:59 Last Admin: 11/06/17 10:16 Dose: Not Given Amitriptyline HCl (Elavil) 10 mg PO BID AVRIL PRN Reason: Protocol Stop: 01/04/18 10:44 Last Admin: 11/06/17 10:34 Dose: 10 mg Artificial Tears (Artificial Tears Ophth Soln) 1 drop EACH EYE Q4HR PRN PRN Reason: Dry Eye Stop: 01/02/18 12:11 Last Admin: 11/06/17 10:55 Dose: 1 drop Budesonide (Pulmicort) 0.5 mg HHN BIDRT [facility] Stop: 01/01/18 18:59 Last Admin: 11/06/17 06:56 Dose: 0.5 mg Dicyclomine HCl (Bentyl) 20 mg PO BID [facility] Stop: 01/02/18 08:59 Last Admin: 11/06/17 10:35 Dose: 20 mg Escitalopram Oxalate (Lexapro) 5 mg PO DAILY AVRIL PRN Reason: Protocol Stop: 01/02/18 08:59 Ferrous Sulfate (Iron) 325 mg PO DAILY [facility] Stop: 01/02/18 08:59 Last Admin: 11/06/17 10:35 Dose: 325 mg Folic Acid (Folate) 1 mg PO DAILY [facility] Stop: 01/01/18 10:44 Last Admin: 11/06/17 10:35 Dose: 1 mg Hydromorphone HCl (Dilaudid) 1 mg IVP Q6H PRN PRN Reason: Severe Pain Stop: 01/02/18 10:58 Last Admin: 11/06/17 10:30 Dose: 1 mg Hydroxyzine HCl (Atarax) 25 mg PO TID AVRIL PRN Reason: Protocol Stop: 01/02/18 08:59 Last Admin: 11/06/17 10:35 Dose: 25 mg Dextrose/Sodium Chloride (D5-0.9%Ns) 1,000 mls @ 60 mls/hr IV .[id number] [facility] Stop: 01/04/18 22:14 Last Admin: 11/05/17 23:33 Dose: 60 mls/hr Lactulose (Cephulac) 60 gm PO QID [facility] Stop: 01/02/18 08:59 Last Admin: 11/06/17 10:36 Dose: 60 gm Levocarnitine (Carnitor) 330 mg PO BID [facility] Stop: 01/02/18 08:59 Last Admin: 11/06/17 10:34 Dose: 330 mg Multivitamins/Vitamin C (Theragran) 1 tab PO DAILY [facility] Stop: 01/01/18 10:44 Last Admin: 11/06/17 10:35 Dose: 1 tab Ondansetron HCl (Zofran) 4 mg IV Q8H PRN PRN Reason: Nausea / Vomiting Stop: 01/01/18 20:43 Last Admin: 11/06/17 10:51 Dose: 4 mg Rifaximin (Xifaxan) 600 mg PO BID [facility] Stop: 01/02/18 16:59 Last Admin: 11/06/17 11:12 Dose: 600 mg Thiamine HCl (Vitamin B1) 100 mg PO DAILY [facility] Stop: 01/01/18 10:44 Last Admin: 11/06/17 10:35 Dose: 100 mg General: Alert, No acute distress, Other (anxious) HEENT: Atraumatic Neck: Supple Cardiovascular: Regular rate, Normal S1, Normal S2 Lungs: Clear to auscultation Abdomen: Bowel sounds (normal), Soft, Tender (diffuse but soft and no guarding) - Procedures Procedures: Procedures Procedure Code Date EXCISION OF DUODENUM, ENDO, DIAGN [id number] 06/06/17 EXCISION OF STOMACH, ENDO, DIAGN [id number] 06/06/17 EXCISION OF TRANSVERSE COLON, ENDO [id number] 06/06/17 Assessment/Plan - Assessment Assessment: 66 YO MALE WITH CIRRHOSIS COMPLICATED BY ASCITES AND HEP ENCEPHALOPATHY AFP NORMAL 1.PARACENTESIS 2.CT LIVER 3.CONT SUPP CARE 4.LACTULOSE AND XIFAXAN
--- NOTE | 2017-11-06 13:50 | Infectious Disease Prog Note ---
Infectious Disease Subjective - Review of Systems Service Date: 11/06/17 Subjective: No new change, no fever. c/o old pain in his abdomen. not eating enough food. Infectious Disease Objective - Results Result Diagrams: 11/06/17 05:40 11/06/17 05:40 Recent Labs: Laboratory Last Values WBC 3.7 Th/cmm (4.8-10.8) L 11/06/17 05:40 RBC 2.87 Mil/cmm (3.80-5.80) L 11/06/17 05:40 Hgb 8.2 gm/dL (12-16) L 11/06/17 05:40 Hct 24.8 % (41.0-60) L 11/06/17 05:40 MCV 86.2 fl (80-99) 11/06/17 05:40 MCH 28.5 pg (27.0-31.0) 11/06/17 05:40 MCHC Differential 33.1 pg (28.0-36.0) 11/06/17 05:40 RDW 15.8 % (11.5-20.0) 11/06/17 05:40 Plt Count 48 Th/cmm (150-400) L 11/06/17 05:40 MPV 7.6 fl 11/06/17 05:40 Neutrophils % 38.5 % (40.0-80.0) L 11/06/17 05:40 Band Neutrophils % 1 % (0-10) 11/04/17 06:10 Lymphocytes % 36.5 % (20.0-50.0) 11/06/17 05:40 Monocytes % 12.6 % (2.0-10.0) H 11/06/17 05:40 Eosinophils % 10.6 % (0.0-5.0) H 11/06/17 05:40 Basophils % 1.8 % (0.0-2.0) 11/06/17 05:40 Neutrophils (Manual) 47 % (40-80) 11/05/17 06:03 Lymphocytes 36 % (20-50) 11/05/17 06:03 Monocytes 7 % (2-10) 11/05/17 06:03 Eosinophils 10 % (0-5) H 11/05/17 06:03 Basophils 0 % (0-3) 11/05/17 06:03 Platelet Estimate DECREASED PLATELETS (NORMAL) 11/05/17 06:03 Smear Path Review PLUNKET NURSE 11/02/17 01:20 PT 15.3 SECONDS (9.5-11.5) H 11/02/17 01:20 INR 1.44 (0.5-1.4) H 11/02/17 01:20 PTT (Actin FS) 31.5 SECONDS (26.0-38.0) 11/02/17 01:20 Specimen Source ARTERIAL 11/03/17 09:02 Sample Site Left Radial 11/03/17 09:02 pH 7.40 (7.35-7.45) 11/03/17 09:02 pCO2 36.0 mmHg (35.0-45.0) 11/03/17 09:02 pO2 103.0 mmHg (80.0-100.0) H 11/03/17 09:02 HCO3 25.0 mEq/L (20.0-26.0) 11/03/17 09:02 Base Excess 1.0 mEq/L (-3.0-3.0) 11/03/17 09:02 O2 Saturation 98.0 % (92.0-100.0) 11/03/17 09:02 Parker Test Y 11/03/17 09:02 Vent Rate N/A 11/03/17 09:02 Inspired O2 28 11/03/17 09:02 Tidal Volume N/A 11/03/17 09:02 PEEP N/A 11/03/17 09:02 Pressure (ins/psv/peep) N/A 11/03/17 09:02 Critical Value O.WANG 11/03/17 09:02 Sodium 134 mEq/L (136-145) L 11/06/17 05:40 Potassium 4.0 mEq/L (3.5-5.1) 11/06/17 05:40 Chloride 107 mEq/L (98-107) 11/06/17 05:40 Carbon Dioxide 23.8 mEq/L (21.0-31.0) 11/06/17 05:40 Anion Gap 7.2 (7.0-16.0) 11/06/17 05:40 BUN 8 mg/dL (7-25) 11/06/17 05:40 Creatinine 0.6 mg/dL (0.7-1.3) L 11/06/17 05:40 Est GFR ( Amer) > 60.0 ml/min (>90) 11/06/17 05:40 Est GFR (Non-Af Amer) > 60.0 ml/min 11/06/17 05:40 BUN/Creatinine Ratio 13.3 11/06/17 05:40 Glucose 103 mg/dL (70-105) 11/06/17 05:40 Whole Bld Lactic Acid 1.50 mmol/L (0.60-1.99) 11/02/17 01:20 Calcium 8.1 mg/dL (8.6-10.3) L 11/06/17 05:40 Total Bilirubin 1.1 mg/dL (0.3-1.0) H 11/06/17 05:40 Direct Bilirubin 0.45 mg/dL (0.0-0.2) H 11/06/17 05:40 AST 61 U/L (13-39) H 11/06/17 05:40 ALT 25 U/L (7-52) 11/06/17 05:40 Alkaline Phosphatase 72 U/L (34-104) 11/06/17 05:40 Ammonia 70 umol/L (16-53) H 11/06/17 05:40 Creatine Kinase 33 U/L (30-223) 11/02/17 01:20 Troponin I 0.02 ng/mL (0.01-0.05) 11/02/17 01:20 Total Protein 5.7 gm/dL (6.0-8.3) L 11/06/17 05:40 Albumin 2.1 gm/dL (4.2-5.5) L 11/06/17 05:40 Globulin 3.6 gm/dL 11/06/17 05:40 Albumin/Globulin Ratio 0.6 (1.0-1.8) L 11/06/17 05:40 Tumor Marker AFP 7.5 ng/mL (0.0-8.3) 11/03/17 05:25 TSH 3.45 uIU/ml (0.34-5.60) 11/03/17 05:25 Urine Source MIDSTREAM 11/03/17 22:20 Urine Color BROWN 11/03/17 22:20 Urine Clarity CLEAR (CLEAR) 11/03/17 22:20 Urine pH 6.5 (4.6 - 8.0) 11/03/17 22:20 Ur Specific [place] 1.025 (1.005-1.030) 11/03/17 22:20 Urine Protein TRACE mg/dL (NEGATIVE) 11/03/17 22:20 Urine Glucose (UA) NEGATIVE mg/dL (NEGATIVE) 11/03/17 22:20 Urine Ketones TRACE mg/dL (NEGATIVE) 11/03/17 22:20 Urine Blood TRACE (NEGATIVE) 11/03/17 22:20 Urine Nitrate NEGATIVE (NEGATIVE) 11/03/17 22:20 Urine Bilirubin MODERATE (NEGATIVE) H 11/03/17 22:20 Urine Urobilinogen 1.0 E.U./dL (0.2 - 1.0) 11/03/17 22:20 Ur Leukocyte Esterase NEGATIVE (NEGATIVE) 11/03/17 22:20 Urine RBC 0-2 /hpf (0-5) H 11/03/17 22:20 Urine WBC 0-2 /hpf (0-5) 11/03/17 22:20 Ur Epithelial Cells NONE SEEN /lpf (FEW) 11/03/17 22:20 Urine Bacteria NONE SEEN /hpf (NONE SEEN) 11/03/17 22:20 Urine Opiates Screen POSITIVE (NEGATIVE) H 11/03/17 22:20 Urine Methadone Screen NEGATIVE (NEGATIVE) 11/03/17 22:20 Ur Barbiturates Screen NEGATIVE (NEGATIVE) 11/03/17 22:20 Ur Tricyclics Screen NEGATIVE (NEGATIVE) 11/03/17 22:20 Ur Phencyclidine Scrn NEGATIVE (NEGATIVE) 11/03/17 22:20 Amphetamines Screen NEGATIVE (NEGATIVE) 11/03/17 22:20 U Methamphetamines Scrn NEGATIVE (NEGATIVE) 11/03/17 22:20 U Benzodiazepines Scrn NEGATIVE (NEGATIVE) 11/03/17 22:20 U Cocaine Metab Screen NEGATIVE (NEGATIVE) 11/03/17 22:20 U Cannabinoids Screen NEGATIVE (NEGATIVE) 11/03/17 22:20 - Physical Exam Vitals and I&O: Vital Signs Temp 98 F 11/06/17 11:42 Pulse 81 11/06/17 11:42 Resp 19 11/06/17 11:42 BP 121/71 11/06/17 11:42 Pulse Ox 100 11/06/17 11:42 Intake & Output 11/05/17 11/06/17 11/06/17 18:59 06:59 18:59 Intake Total 390 Balance 390 Weight (lbs) 85.729 kg 86.273 kg Intake: Oral 390 Other: Weight Source Bedscale Bedscale Active Medications: Current Medications Albuterol/Ipratropium (Duoneb Neb) 3 ml HHN [id number] [facility] Stop: 01/01/18 14:59 Last Admin: 11/06/17 10:16 Dose: Not Given Amitriptyline HCl (Elavil) 10 mg PO BID [facility] PRN Reason: Protocol Stop: 01/04/18 10:44 Last Admin: 11/06/17 10:34 Dose: 10 mg Artificial Tears (Artificial Tears Ophth Soln) 1 drop EACH EYE Q4HR PRN PRN Reason: Dry Eye Stop: 01/02/18 12:11 Last Admin: 11/06/17 10:55 Dose: 1 drop Budesonide (Pulmicort) 0.5 mg HHN BIDRT [facility] Stop: 01/01/18 18:59 Last Admin: 11/06/17 06:56 Dose: 0.5 mg Dicyclomine HCl (Bentyl) 20 mg PO BID [facility] Stop: 01/02/18 08:59 Last Admin: 11/06/17 10:35 Dose: 20 mg Escitalopram Oxalate (Lexapro) 5 mg PO DAILY [facility] PRN Reason: Protocol Stop: 01/02/18 08:59 Ferrous Sulfate (Iron) 325 mg PO DAILY [facility] Stop: 01/02/18 08:59 Last Admin: 11/06/17 10:35 Dose: 325 mg Folic Acid (Folate) 1 mg PO DAILY [facility] Stop: 01/01/18 10:44 Last Admin: 11/06/17 10:35 Dose: 1 mg Hydromorphone HCl (Dilaudid) 1 mg IVP Q6H PRN PRN Reason: Severe Pain Stop: 01/02/18 10:58 Last Admin: 11/06/17 10:30 Dose: 1 mg Hydroxyzine HCl (Atarax) 25 mg PO TID [facility] PRN Reason: Protocol Stop: 01/02/18 08:59 Last Admin: 11/06/17 10:35 Dose: 25 mg Dextrose/Sodium Chloride (D5-0.9%Ns) 1,000 mls @ 60 mls/hr IV .[id number] [facility] Stop: 01/04/18 22:14 Last Admin: 11/05/17 23:33 Dose: 60 mls/hr Lactulose (Cephulac) 60 gm PO QID [facility] Stop: 01/02/18 08:59 Last Admin: 11/06/17 10:36 Dose: 60 gm Levocarnitine (Carnitor) 330 mg PO BID [facility] Stop: 01/02/18 08:59 Last Admin: 11/06/17 10:34 Dose: 330 mg Multivitamins/Vitamin C (Theragran) 1 tab PO DAILY [facility] Stop: 01/01/18 10:44 Last Admin: 11/06/17 10:35 Dose: 1 tab Ondansetron HCl (Zofran) 4 mg IV Q8H PRN PRN Reason: Nausea / Vomiting Stop: 01/01/18 20:43 Last Admin: 11/06/17 10:51 Dose: 4 mg Rifaximin (Xifaxan) 600 mg PO BID [facility] Stop: 01/02/18 16:59 Last Admin: 11/06/17 11:12 Dose: 600 mg Thiamine HCl (Vitamin B1) 100 mg PO DAILY [facility] Stop: 01/01/18 10:44 Last Admin: 11/06/17 10:35 Dose: 100 mg General: no acute distress, well developed, well nourished HEENT: atraumatic, normocephalic, PERRLA Neck: supple, no thyromegaly Cardiovascular: S1S2, regular Lungs: clear to auscultation bilaterally, clear to percussion Abdomen: soft, no tender, no distended Extremities: no cyanosis, no clubbing, no edema Neurological: awake, alert, oriented Skin: intact - Procedures Procedures: Procedures Procedure Code Date EXCISION OF DUODENUM, ENDO, DIAGN [id number] 06/06/17 EXCISION OF STOMACH, ENDO, DIAGN [id number] 06/06/17 EXCISION OF TRANSVERSE COLON, ENDO [id number] 06/06/17 Infectious Disease Assmt/Plan - Assessment Assessment: 1. Altered mental status, rule out hepatic encephalopathy, improving. 2. Anemia, stable hemoglobin and hematocrit. 3. Neutropenia, stable. 4. Thrombocytopenia, stable, secondary to cirrhosis. 5. Hepatitis C. 6. Hypertension. 7. Cirrhosis. 8. Asthma, chronic obstructive pulmonary disease. 9. Dyslipidemia. 10. Peptic ulcer disease, gastroesophageal reflux disease. 11. Dementia. 12. Neuropathy. 13. Chronic pain syndrome. 14. History of methicillin-resistant Staphylococcus aureus infection of the left hip. Left hip prosthesis treated, no signs and symptoms of infection at this time. 15. History of open reduction and internal fixation of the left hip. 16. old abdominal pain. can be taken care as outpatient basis. - Plan Plan: Continue present treatment, Zofran prn. STEVE planning. DW patient. Nutritional Asmnt/Malnutr-PDOC - Dietary Evaluation Malnutrition Findings (Please click <Entered> for more info): Nutritional Asmnt/Malnutrition Start: 11/04/17 10: 32 Text: Status: Complete Freq: Document 11/04/17 10:32 BHAVNA (Rec: 11/04/17 10:38 BHAVNA HERMOSILLO- FNS1) Nutritional Asmnt/Malnutrition Patient General Information Diagnosis Hepatic Failure Pertinent Medical Hx/Surgical Hx chronic pain syndrome, dyslipidemia, encephalopathy, COPD, peptic ulcer disease, hep C Subjective Information Pt asleep in bed at time of visit Current Diet Order/ Nutrition Support mechanical soft diet Pertinent Medications Fe, folate, dilaudid, lactulose, theragran, zofran, vit B Pertinent Labs 11/03: Na 132, K 4.0, Cl 106, CO2 23, BUN 6, Cr 0.6, Ca 7.9, glucose 86 Nutritional Hx/Data Height 1.85 m Height (Calculated Centimeters) 185.4 Current Weight (lbs) 85.729 kg Weight (Calculated Kilograms) 85.7 Weight (Calculated Grams) 33336.0 Body Mass Index (BMI) 24.9 GI Symptoms GI Symptoms None Last BM 11/03 Cultural/Ethnic/Islam Belief Unknown Usual diet at home mechanical soft Skin Integrity/Comment: poppy score 14 Estimated Nutritional Goals BEE in Kcals: Using Current wt Calories/Kcals/Kg 28-33kcals/kg Kcals Calculated 2408-2580kcals/kg Protein: Using Current wt Protein g/k.2g/kg Protein Calculated 103g/day Fluid: ml per MD Nutritional Problem 1. Problem Problem Increased nutrient needs related to Etiology increased nutrient demands Signs/Symptoms: as evidenced by hepatic failure Intervention/Recommendation Comments Recommend mechanical soft diet Recommend Boost BID to help meet estimated needs Expected Outcomes/Goals Expected Outcomes/Goals PO intake >75% of meals
[2017-11-06] MEDS: D5-0.9%NS 1,000 ML IV SCH (21:52)
--- NOTE | 2017-11-06 23:39 | Progress Notes ---
DATE: 11/06/2017 PSYCHIATRIC PROGRESS NOTE SUBJECTIVE: Chart reviewed and the patient interviewed. Also discussed the patient's condition with the staff and reviewed records and labs. The patient still has episodes of agitation and he is still complaining of abdominal pain. The patient also is still suspicious and paranoid. Also, is having rapid movements of the mouth and looks like the patient have tardive dyskinesia. The patient also still has episodes of agitation, but not as irritable. ASSESSMENT: The patient is still depressed and psychotic. TREATMENT PLAN: We will continue monitoring his behavior and his condition closely. Also, continue working on his ineffective coping and continue to followup. The patient needs lots of support. JOB# [id number]
--- NOTE | 2017-11-07 01:25 | Progress Notes ---
DATE: 11/06/2017 PULMONARY PROGRESS NOTE PROBLEM LIST: 1. Acute exacerbation of chronic obstructive pulmonary disease. 2. Opioid dependency. 3. Alcoholic liver disease, underlying psychiatric illness. SYMPTOMS: Nil. He says he is being discharged. He has still a lot of pain. Then he says slightly edge, but no specific, no breathing difficulty. PHYSICAL EXAMINATION: VITAL SIGNS: T-max 98.0, heart rate is in 80s, blood pressure 103/77, saturation 100% on room air. NECK: Veins not visualized. CHEST: Shows diminished air entry with occasional rhonchi. HEART: Regular. ABDOMEN: Soft, nontender. EXTREMITIES: Shows no peripheral edema. ASSESSMENT: The patient is clinically stable, has lot of psychiatric illness with chronic hepatic respiratory issues including Psychiatry consult. PLANS AND SUGGESTIONS: Continue conservative treatment, etc. respiratory schwab and go from there. JOB# [id number]
--- NOTE | 2017-11-07 08:35 | Diagnostic Imaging Report ---
Exam: CT examination of the abdomen pelvis. HISTORY: Abdominal pain abnormal ultrasound of the liver Total DLP equals 687 CTDI equals 13.2 Findings: Multiple views of the section of the abdomen pelvis obtained from lower thorax to pubic symphysis without the administration of oral or intravenous contrast material no prior studies available comparison. The study was correlated with the previous ultrasound examination the abdomen of the 548T The study demonstrates normal aeration of lung parenchyma the bases. Pleural thickening is noted bilaterally with basilar atelectasis. There is again evidence for large amount of ascitic fluid in the abdomen. The gallbladder is impacted with large calculi. The liver parenchyma show content suggestive of cirrhotic changes. There is evidence of splenomegaly. Diffuse vascular calcification appreciated. The kidneys demonstrate no evidence of obstructive uropathy or nephrolithiasis. There is evidence for distention of the small bowel loops throughout the abdomen consistent with ileus. The urinary bladder is distended. There is evidence for metallic hardware in the left hip joint with subsequent soft tissue swelling around the greater trochanter inflammatory changes cannot be excluded. This might represent cellulitis. IMPRESSION: Basilar atelectasis pleural thickening Liver cirrhosis Splenomegaly Large amount of ascitic fluid Distended gallbladder with large calculi Extensive vascular calcifications. Ileus Left hip intact hardware with subcutaneous soft tissue swelling question cellulitis
== END 2017-11-06 21:53 | DRG 871 ==
LOC: ER 22:42 → ICU 11-02 03:00 → MSI 11-02 10:00
PROVIDERS: ADMIT Internal Medicine Infectious Disease; ATTEND Internal Medicine Infectious Disease
DX: A41.9 Sepsis, unspecified organism (principal); E43 Unspecified severe protein-calorie malnutrition; D61.818 Other pancytopenia; J44.1 Chronic obstructive pulmonary disease with (acute) exacerbation; F11.20 Opioid dependence, uncomplicated; E87.1 Hypo-osmolality and hyponatremia; D68.9 Coagulation defect, unspecified; F33.2 Major depressive disorder, recurrent severe without psychotic features; R18.8 Other ascites; K72.90 Hepatic failure, unspecified without coma; D64.9 Anemia, unspecified; K74.60 Unspecified cirrhosis of liver; B19.20 Unspecified viral hepatitis C without hepatic coma; I10 Essential (primary) hypertension; E78.5 Hyperlipidemia, unspecified; K27.9 Peptic ulcer, site unspecified, unspecified as acute or chronic, without hemorrhage or perforation; K21.9 Gastro-esophageal reflux disease without esophagitis; F03.90 Unspecified dementia, unspecified severity, without behavioral disturbance, psychotic disturbance, mood disturbance, and anxiety; G62.9 Polyneuropathy, unspecified; G89.4 Chronic pain syndrome; F17.210 Nicotine dependence, cigarettes, uncomplicated; E87.6 Hypokalemia; E86.0 Dehydration; D73.1 Hypersplenism; M19.90 Unspecified osteoarthritis, unspecified site; R11.2 Nausea with vomiting, unspecified; F41.9 Anxiety disorder, unspecified; Z68.25 Body mass index [BMI] 25.0-25.9, adult; Z82.49 Family history of ischemic heart disease and other diseases of the circulatory system
CPT/HCPCS: 36415-UA; 36600-90; 71045-TC; 76700-TC; 80053-TC; 80307; 81001-TC; 82105-90; 82140-TC; 82248-TC; 82550-TC; 82803-TC; 83605; 84134-90; 84443-TC; 84484-TC; 85007-TC; 85025-TC; 85027-TC; 85610-TC; 85730-TC; 87070; 93005; 94640; 94760; 96375; J1170; J1885; J1956; J2405; J7042; Q9967; Z7610

== ENCOUNTER 2017-11-27 22:43 | Emergency (ER) | payer MEDICARE, MEDICAID ==
--- NOTE | 2017-11-27 23:28 | ED Physician Chart ---
ED Chief Complaint/HPI - Patient Information Date Seen:: 11/27/17 Time Seen:: 23:10 Chief Complaint:: abd pain History of Present Illness:: 66 yr old male with hx of liver failure cirrhosis who comes here frequently for ascites abd pain pt has chronic pain issues no n,v or fever or diarhea Allergies:: Allergies Allergy/AdvReac Type Severity Reaction Status Date / Time No Known Allergies Allergy Verified 11/27/17 22:58 Vitals:: Vital Signs - 8 hr 11/27/17 22:45 Temp 97.9 F HR 80 RR 20 BP 118/65 O2 Sat % 99 ED Review of Systems - Review of Systems General/Constitutional: No fever Skin: Bruising Head: No headache Eyes: No loss of vision ENT: No earache Neck: No neck pain Cardio Vascular: No chest pain Pulmonary: No SOB GI: No vomiting G/U: No dysuria Musculoskeletal: No bone or joint pain Endocrine: No polyuria Psychiatric: No prior psych history Hematopoietic: Bruising Allergic/Immuno: No urticaria Neurological: No syncope ED Past Medical History - Past Medical History Past Medical History: Other (liver failure hepatitis cirrhosis ascites) Social History: Alcohol Family Medical History - Family Member Mother History Unknown: Yes Ethnicity: Unknown Living Status: Hx Family Cancer: Yes Hx Family Coronary Artery Disease: No Hx Family Congestive Heart Failure: No Hx Family Hypertension: No Hx Family Stroke: No Hx Family Diabetes: No Hx Family Seizures: No Hx Family Dementia: No Hx Family AIDS: No Hx Family HIV: No Hx Family COPD: No Hx Family Hepatitis: No Hx Family Psychiatric Problems: No Hx Family Tuberculosis: No unknown History Unknown: Yes Ethnicity: Non- Living Status: Hx Family Cancer: No Hx Family Coronary Artery Disease: No Hx Family Congestive Heart Failure: No Hx Family Hypertension: Yes Hx Family Stroke: No Hx Family Diabetes: No Hx Family Seizures: No Hx Family Dementia: No Hx Family AIDS: No Hx Family HIV: No Hx Family COPD: No Hx Family Hepatitis: No Hx Family Psychiatric Problems: No Hx Family Tuberculosis: No Father History Unknown: Yes Ethnicity: Unknown Living Status: Hx Family Cancer: No Hx Family Coronary Artery Disease: No Hx Family Congestive Heart Failure: No Hx Family Hypertension: No Hx Family Stroke: No Hx Family Diabetes: No Hx Family Seizures: No Hx Family Dementia: No Hx Family AIDS: No Hx Family HIV: No Hx Family COPD: No Hx Family Hepatitis: No Hx Family Psychiatric Problems: No Hx Family Tuberculosis: No Sister History Unknown: Yes Ethnicity: Living Status: ED Physical Exam - Physical Examination General/Constitutional: Alert, No distress Head: Atraumatic Eyes: Lids, conjuctiva normal Other Skin comments:: bruising arms and cachexia Other ENMT comments:: keeps gumming his tongue Neck: No mass Respiratory: Clear to Auscultation Cardio Vascular: No murmur, gallop, rubs Other GI comments:: organomegaly and ascites Other Extremities comments:: muscle wasing germania the extremities Neuro/Psych: Alert/oriented ED Assessment - Assessment General Assessment: cachexia liver failure ascites chronic pain and drug seeking behaviours ED Septic Shock - . Is Septic Shock (SBP<90, OR Lactate>4 mmol\L) present?: No - <6hrs of presentation: Vital Signs: Vital Signs - 8 hr 11/27/17 22:45 Temp 97.9 F HR 80 RR 20 BP 118/65 O2 Sat % 99 ED Reassessment (Disposition) - Reassessment Reassessment Condition:: Unchanged - Patient Disposition Discharge/Transfer:: [facility]
== END 2017-11-28 00:30 ==
LOC: ER 22:43
DX: K76.9 Liver disease, unspecified (principal); Z76.5 Malingerer [conscious simulation]
CPT/HCPCS: Z7502

== ENCOUNTER 2017-11-28 16:53 | Inpatient (IN) | payer MEDICARE, MEDICAID ==
--- NOTE | 2017-11-28 17:25 | ED Physician Chart ---
ED Chief Complaint/HPI - Patient Information Date Seen:: 11/28/17 Time Seen:: 17:00 Chief Complaint:: Abdominal Pain History of Present Illness:: onset x 3 days of intermittent, diffuse, crampy abdominal pain; no report of trauma, H/as, S/T, neck pain, C/P, cough, SOB, A/N/V/D/C, fever, chills, or urinary s/s Allergies:: Allergies Allergy/AdvReac Type Severity Reaction Status Date / Time No Known Allergies Allergy Verified 11/27/17 22:58 Vitals:: Vital Signs - 8 hr 11/28/17 16:58 Temp 98.2 F HR 79 RR 18 BP 112/70 O2 Sat % 95 Historian:: Patient, EMS Review:: Nurse's Note Reviewed, Old Chart Reviewed, EMS run form Reviewed ED Review of Systems - Review of Systems General/Constitutional: No fever, No chills, No weight loss, No weakness, No diaphoresis, No edema, No loss of appetite Skin: No skin lesions, No rash, No bruising Head: No headache, No light-headedness Eyes: No loss of vision, No pain, No diplopia ENT: No earache, No nasal drainage, No sore throat, No tinnitus Neck: No neck pain, No swelling, No thyromegaly, No stiffness, No mass noted Cardio Vascular: No chest pain, No palpitations, No PND, No orthopnea, No edema Pulmonary: No SOB, No cough, No sputum, No wheezing GI: Nausea, Vomiting, Diarrhea, Pain, No melena, No hematochezia, No constipation, No hematemesis G/U: No dysuria, No frequency, No hematuria, No nacturia Musculoskeletal: No bone or joint pain, No back pain, No muscle pain Endocrine: No polyuria, No polydipsia Psychiatric: Prior psych history, Depression, Anxiety, No suicidal ideation, No homicidal ideation, Auditory hallucination, No visual hallucination Hematopoietic: No bruising, No lymphadenopathy Allergic/Immuno: No urticaria, No angioedema Neurological: No syncope, No focal symptoms, No weakness, No paresthesia, No headache, No seizure, No dizziness, No confusion, No vertigo ED Past Medical History - Past Medical History Obtainable: Yes Past Medical History: HTN, DM, Asthma/COPD, PUD/GERD, Other (Hepatic Failure) Family History: Diabetes Melitus, HTN Social History: Smoker, Alcohol, No Drug Use, Single, Care Facility Surgical History: other (Knee/Hip Surgeries) Psychiatricy History: Depression, Schizophrenia, Bipolar Medication: Reviewed Family Medical History - Family Member Mother History Unknown: Yes Ethnicity: Unknown Living Status: Hx Family Cancer: Yes Hx Family Coronary Artery Disease: No Hx Family Congestive Heart Failure: No Hx Family Hypertension: No Hx Family Stroke: No Hx Family Diabetes: No Hx Family Seizures: No Hx Family Dementia: No Hx Family AIDS: No Hx Family HIV: No Hx Family COPD: No Hx Family Hepatitis: No Hx Family Psychiatric Problems: No Hx Family Tuberculosis: No unknown History Unknown: Yes Ethnicity: Non- Living Status: Hx Family Cancer: No Hx Family Coronary Artery Disease: No Hx Family Congestive Heart Failure: No Hx Family Hypertension: Yes Hx Family Stroke: No Hx Family Diabetes: No Hx Family Seizures: No Hx Family Dementia: No Hx Family AIDS: No Hx Family HIV: No Hx Family COPD: No Hx Family Hepatitis: No Hx Family Psychiatric Problems: No Hx Family Tuberculosis: No Father History Unknown: Yes Ethnicity: Unknown Living Status: Hx Family Cancer: No Hx Family Coronary Artery Disease: No Hx Family Congestive Heart Failure: No Hx Family Hypertension: No Hx Family Stroke: No Hx Family Diabetes: No Hx Family Seizures: No Hx Family Dementia: No Hx Family AIDS: No Hx Family HIV: No Hx Family COPD: No Hx Family Hepatitis: No Hx Family Psychiatric Problems: No Hx Family Tuberculosis: No Sister History Unknown: Yes Ethnicity: Living Status: ED Physical Exam - Physical Examination General/Constitutional: Awake, Well-developed, well-nourished, Alert, No distress, GCS 15, Non-toxic appearing, Ambulatory Head: Atraumatic Eyes: Lids, conjuctiva normal, PERRL, EOMI Skin: Nl inspection, No rash, No skin lesions, No ecchymosis, Well hydrated, No lymphadenopathy ENMT: External ears, nose nl, TM canals nl, Nasal exam nl, Lips, teeth, gums nl , Oropharynx nl, Tonsils nl Neck: Nontender, Full ROM w/o pain, No JVD, No nuchal rigidity, No bruit, No mass, No stridor Respiratory: Nl effort/Exclusion, Clear to Auscultation, No Wheeze/Rhonchi/Rales Cardio Vascular: RRR, No murmur, gallop, rubs, NL S1 S2, Carotid/Femoral/Distal pulses equal bilaterally GI: No tenderness/rebounding/guarding, No organomegaly, No hernia, Normal BS's, Nondistended, No mass/bruits, No McBurney tenderness : No CVA tenderness Extremities: No tenderness or effusion, Full ROM, normal strength in all extremities, No edema, Normal digits & nails Neuro/Psych: Alert/oriented, DTR's symmetric, Normal sensory exam, Normal motor strength, Judgement/insight normal, Mood normal, Normal gait, No focal deficits Misc: Normal back, No paraspinal tenderness ED Septic Shock - . Is Septic Shock (SBP<90, OR Lactate>4 mmol\L) present?: No - <6hrs of presentation: Vital Signs: Vital Signs - 8 hr 11/28/17 16:58 Temp 98.2 F HR 79 RR 18 BP 112/70 O2 Sat % 95 ED Reassessment (Disposition) - Reassessment Reassessment Condition:: Improved - Diagnosis Diagnosis:: Abdominal Pain; Intractable Pain; Gastritis; AGE; Hepatic Failure; Anemia; GERD - Aftercare/Follow up Instructions Aftercare/Follow-Up Instructions:: Counseled pt regarding lab results/diagnosis & need follow up, Counseled pt & family regarding lab results/diagnosis & need follow up - Patient Disposition Discharge/Transfer:: Acute Care w/in this hosp Accepting Physician:: Dr. Nair Time Called:: 1710 Time Responded:: 17:10 Admitted to:: Telemetry Spoke to:: Dr. Nair Admitting Medical Physician:: Dr. Nair Condition at Disposition:: Stable, Improved
[2017-11-28] MEDS ORDERED: Sodium Chloride 0.9% 1,000 ML IV ONE (17:27)
[2017-11-28 17:47] LABS: HEMATOCRIT 30.6 % (41.0-60); MEAN CELL VOLUME 88.1 fl (80-99); RED BLOOD COUNT 3.47 Mil/cmm (3.80-5.80)
[2017-11-28 17:51] LABS: HEMOGLOBIN 10.6 gm/dL (12-16); MEAN CORPUSCULAR HEMOGLOBIN 30.4 pg (27.0-31.0); MEAN CORPUSCULAR HGB CONC 34.5 pg (28.0-36.0); MEAN PLATELET VOLUME 6.9 fl; PLATELET COUNT 72 Th/cmm (150-400); RED CELL DISTRIBUTION WIDTH 16.2 % (11.5-20.0)
[2017-11-28 17:55] LABS: MANUAL DIFF REQUIRED? YES; WHITE BLOOD COUNT 2.8 Th/cmm (4.8-10.8)
[2017-11-28 17:58] LABS: INR 1.32 (0.5-1.4); PROTHROMBIN TIME (TEST) 13.9 SECONDS (9.5-11.5)
[2017-11-28 18:06] LABS: ALB/GLOB RATIO 0.7 (1.0-1.8); ALBUMIN 2.6 gm/dL (4.2-5.5); ALKALINE PHOSPHATASE 61 U/L (34-104); AMYLASE SERUM 18 U/L (29-103); ANION GAP 9.5 (7.0-16.0); BILIRUBIN,TOTAL 1.1 mg/dL (0.3-1.0); BUN - UREA NITROGEN 5 mg/dL (7-25); CALCIUM SERUM 8.3 mg/dL (8.6-10.3); CARBON DIOXIDE 24.2 mEq/L (21.0-31.0); CHLORIDE 103 mEq/L (98-107); CHOLESTEROL 99 mg/dL (<200); CREATININE - SERUM 0.6 mg/dL (0.7-1.3); CREATININE KINASE 43 U/L (30-223); GFR AFRICAN-AMERICAN > 60.0 ml/min (>90); GFR NON AFRICAN-AMERICAN > 60.0 ml/min; GLUCOSE 96 mg/dL (70-105); HDL -HIGH DENSITY LIPOPROTEIN 16 mg/dL (23-92); LIPASE 8 U/L (11-82); POTASSIUM SERUM 3.7 mEq/L (3.5-5.1); SGOT 29 U/L (13-39); SGPT/ALT 11 U/L (7-52); SODIUM SERUM 133 mEq/L (136-145); TOTAL PROTEIN,SERUM 6.5 gm/dL (6.0-8.3); TRIGLYCERIDES 76 mg/dL (<150)
[2017-11-28] MEDS ORDERED: Morphine Sulfate 4 mg/mL 1mL Syr IV STA (18:07)
[2017-11-28] MEDS ORDERED: Morphine Sulfate 2 mg/mL 1mL Syr IV STA (18:07)
[2017-11-28 18:19] LABS: BAND NEUTROPHILE 0 % (0-10); BASOPHIL 1 % (0-3); EOSINOPHIL 2 % (0-5); LYMPHOCYTE 35 % (20-50); MONOCYTE 8 % (2-10); NEUTROPHILS 54 % (40-80); PLATELET ESTIMATE DECREASED PLATELETS (NORMAL); TOTAL CELLS COUNTED 100
[2017-11-28] MEDS ORDERED: Morphine Sulfate 4 mg/mL 1mL Syr ONE (18:30)
[2017-11-29] MEDS ORDERED: HYDROmorphone 1 mg/mL 1mL Syr ONE (02:42)
[2017-11-29 06:18] LABS: BASOPHILE ABSOLUTE 0.1 Th/cumm (0-0.2); EOSINOPHILE ABSOLUTE 0.2 Th/cmm (0.1-0.4); HEMATOCRIT 24.5 % (41.0-60); HEMOGLOBIN 8.5 gm/dL (12-16); LYMPHOCYTE ABSOLUTE 0.8 Th/cmm (1.5-3.0); MEAN CELL VOLUME 87.8 fl (80-99); MEAN CORPUSCULAR HEMOGLOBIN 30.4 pg (27.0-31.0); MEAN CORPUSCULAR HGB CONC 34.6 pg (28.0-36.0); MEAN PLATELET VOLUME 7.6 fl; MONOCYTE ABSOLUTE 0.3 Th/cmm (0.3-1.0); PLATELET COUNT 50 Th/cmm (150-400); RED BLOOD COUNT 2.79 Mil/cmm (3.80-5.80); RED CELL DISTRIBUTION WIDTH 16.3 % (11.5-20.0)
[2017-11-29 06:37] LABS: ALB/GLOB RATIO 0.6 (1.0-1.8); ALBUMIN 1.9 gm/dL (4.2-5.5); ALKALINE PHOSPHATASE 45 U/L (34-104); AMYLASE SERUM 13 U/L (29-103); ANION GAP 6.6 (7.0-16.0); BILIRUBIN,TOTAL 0.9 mg/dL (0.3-1.0); BUN - UREA NITROGEN 5 mg/dL (7-25); CALCIUM SERUM 7.7 mg/dL (8.6-10.3); CARBON DIOXIDE 24.1 mEq/L (21.0-31.0); CHLORIDE 107 mEq/L (98-107); CHOLESTEROL 76 mg/dL (<200); CREATININE - SERUM 0.6 mg/dL (0.7-1.3); GFR AFRICAN-AMERICAN > 60.0 ml/min (>90); GFR NON AFRICAN-AMERICAN > 60.0 ml/min; GLUCOSE 91 mg/dL (70-105); HDL -HIGH DENSITY LIPOPROTEIN 11 mg/dL (23-92); LIPASE 8 U/L (11-82); POTASSIUM SERUM 3.7 mEq/L (3.5-5.1); SGOT 22 U/L (13-39); SGPT/ALT 9 U/L (7-52); SODIUM SERUM 134 mEq/L (136-145); TRIGLYCERIDES 63 mg/dL (<150)
[2017-11-29 06:39] LABS: % BASOPHILS 2.3 % (0.0-2.0); % EOSINOPHILS 6.3 % (0.0-5.0); % LYMPHOCYTES 39.7 % (20.0-50.0); % MONOCYTES 11.4 % (2.0-10.0); % NEUTROPHILS 40.3 % (40.0-80.0); WHITE BLOOD COUNT 2.4 Th/cmm (4.8-10.8)
[2017-11-29] MEDS: HYDROmorphone 2 mg/mL 1mL Vial IVP PRN ×4 (09:13→21:38)
--- NOTE | 2017-11-29 09:22 | GI Progress Note ---
Subjective - Review of Systems Service Date: 11/29/17 Subjective: Pt re-admitted, last seen by our service on 11/06/17. He is readmitted complaining mostly of lower back pain, but also some abd pain. He is demanding opiate pain medication. Objective - Results Result Diagrams: 11/29/17 06:06 11/29/17 06:06 Recent Labs: Laboratory Last Values WBC 2.4 Th/cmm (4.8-10.8) L* 11/29/17 06:06 RBC 2.79 Mil/cmm (3.80-5.80) L 11/29/17 06:06 Hgb 8.5 gm/dL (12-16) L 11/29/17 06:06 Hct 24.5 % (41.0-60) L 11/29/17 06:06 MCV 87.8 fl (80-99) 11/29/17 06:06 MCH 30.4 pg (27.0-31.0) 11/29/17 06:06 MCHC Differential 34.6 pg (28.0-36.0) 11/29/17 06:06 RDW 16.3 % (11.5-20.0) 11/29/17 06:06 Plt Count 50 Th/cmm (150-400) L 11/29/17 06:06 MPV 7.6 fl 11/29/17 06:06 Neutrophils % 40.3 % (40.0-80.0) 11/29/17 06:06 Band Neutrophils % 0 % (0-10) 11/28/17 17:33 Lymphocytes % 39.7 % (20.0-50.0) 11/29/17 06:06 Monocytes % 11.4 % (2.0-10.0) H 11/29/17 06:06 Eosinophils % 6.3 % (0.0-5.0) H 11/29/17 06:06 Basophils % 2.3 % (0.0-2.0) H 11/29/17 06:06 Neutrophils (Manual) 54 % (40-80) 11/28/17 17:33 Lymphocytes 35 % (20-50) 11/28/17 17:33 Monocytes 8 % (2-10) 11/28/17 17:33 Eosinophils 2 % (0-5) 11/28/17 17:33 Basophils 1 % (0-3) 11/28/17 17:33 Platelet Estimate DECREASED PLATELETS (NORMAL) 11/28/17 17:33 PT 13.9 SECONDS (9.5-11.5) H 11/28/17 17:33 INR 1.32 (0.5-1.4) 11/28/17 17:33 Sodium 134 mEq/L (136-145) L 11/29/17 06:06 Potassium 3.7 mEq/L (3.5-5.1) 11/29/17 06:06 Chloride 107 mEq/L (98-107) 11/29/17 06:06 Carbon Dioxide 24.1 mEq/L (21.0-31.0) 11/29/17 06:06 Anion Gap 6.6 (7.0-16.0) L 11/29/17 06:06 BUN 5 mg/dL (7-25) L 11/29/17 06:06 Creatinine 0.6 mg/dL (0.7-1.3) L 11/29/17 06:06 Est GFR ( Amer) > 60.0 ml/min (>90) 11/29/17 06:06 Est GFR (Non-Af Amer) > 60.0 ml/min 11/29/17 06:06 BUN/Creatinine Ratio 8.3 11/29/17 06:06 Glucose 91 mg/dL (70-105) 11/29/17 06:06 Whole Bld Lactic Acid 1.16 mmol/L (0.60-1.99) 11/28/17 17: Calcium 7.7 mg/dL (8.6-10.3) L 11/29/17 06:06 Total Bilirubin 0.9 mg/dL (0.3-1.0) 11/29/17 06:06 AST 22 U/L (13-39) 11/29/17 06:06 ALT 9 U/L (7-52) 11/29/17 06:06 Alkaline Phosphatase 45 U/L (34-104) 11/29/17 06:06 Creatine Kinase 43 U/L (30-223) 11/28/17 17:33 Troponin I 0.02 ng/mL (0.01-0.05) 11/28/17 17:33 B-Natriuretic Peptide 73.8 pg/mL (5.0-100.0) 11/28/17 17:33 Total Protein 5.0 gm/dL (6.0-8.3) L 11/29/17 06:06 Albumin 1.9 gm/dL (4.2-5.5) L 11/29/17 06:06 Globulin 3.1 gm/dL 11/29/17 06:06 Albumin/Globulin Ratio 0.6 (1.0-1.8) L 11/29/17 06:06 Triglycerides 63 mg/dL (<150) 11/29/17 06:06 Cholesterol 76 mg/dL (<200) 11/29/17 06:06 LDL Cholesterol Direct 45 mg/dL (75-193) L 11/29/17 06:06 HDL Cholesterol 11 mg/dL (23-92) L 11/29/17 06:06 Amylase 13 U/L (29-103) L 11/29/17 06:06 Lipase 8 U/L (11-82) L 11/29/17 06:06 - Physical Exam Vitals and I&O: Vital Signs Temp 98.1 F 11/29/17 05:23 Pulse 20 11/29/17 05:23 Resp 20 11/29/17 05:23 BP 121/70 11/29/17 05:23 Pulse Ox 100 11/29/17 05:23 Intake & Output 11/28/17 11/29/17 11/29/17 18:59 06:59 18:59 Intake Total 1000 Balance 1000 Weight (lbs) 90.718 kg 90.718 kg Intake: Intake, IV Amount 1000 Sodium Chloride 0.9% 1, 1000 000 ml @ 100 mls/hr IV . Q10H ONE Rx#:[id number] Oral 0 Other: Weight Source Patient stated Bedscale Active Medications: Current Medications Hydromorphone HCl (Dilaudid) 1 mg IVP Q4H PRN PRN Reason: Abdominal Pain Stop: 01/28/18 01:29 Last Admin: 11/29/17 09:13 Dose: 1 mg Dextrose/Sodium Chloride (D5-0.45ns) 1,000 mls @ 75 mls/hr IV .[id number] [facility] Stop: 01/28/18 08:29 General: Alert HEENT: Atraumatic Neck: Supple Cardiovascular: Regular rate Abdomen: Bowel sounds, Soft, Tender, Distended, no Hepatomegaly, no Rebound, no Mass, no Guarding Skin: no Rash - Procedures Procedures: Procedures Procedure Code Date EXCISION OF DUODENUM, ENDO, DIAGN [id number] 06/06/17 EXCISION OF STOMACH, ENDO, DIAGN [id number] 06/06/17 EXCISION OF TRANSVERSE COLON, ENDO [id number] 06/06/17 Assessment/Plan - Assessment Assessment: # Cirrhosis, 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 Decompensated by: # Ascites and hepatic encephalopathy # Abd pain # Back pain Pt is often admitted for back and abd pain. He had EGD/colo in 06/2017 that showe no varices, gastritis, hemorrhoids, and one transverse colon polyp ( tubular adenoma). At current time, he has massive ascites, which could certainly be contributing to his pain. However, he also has had a long history of abd pain, and opiate dependence. 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 Plan: - HCC screening is up to date, he had CT scan 10/2017 that was negative - Not due for variceal screening until 06/2018 - Will order paracentesis and cell count of ascites fluid. Treat any SBP if confirmed - pain management as per primary - not due for colonoscopy until 06/2020 unless he has any GI bleeding - lactulose and rifaxamin - low salt diet recommended
--- NOTE | 2017-11-29 11:38 | Diagnostic Imaging Report ---
Abdominal ultrasound HISTORY: Pain Exam demonstrates relatively large amount of ascites. The liver exhibits a homogeneous parenchyma. No focal lesions. The exam of the gallbladder demonstrates multiple intraluminal echogenic densities with acoustic shadowing consistent with cholelithiasis. No definite biliary dilatation. The pancreas cannot be seen due to bowel gas. Right kidney is normal in size. A 7 mm echogenic density seen in the may be associated with calculus. No hydronephrosis. 2.2 cm cyst noted. The left kidney is normal in size. No focal lesions or hydronephrosis. The spleen is normal in size. No other retroperitoneal or intra-abdominal abnormalities. IMPRESSION: 1. Ascites 2. Findings consistent with cholelithiasis 3. Right renal cyst 4. 7 mm echogenic density within the medullary region of the right kidney. A calculus cannot be excluded. No hydronephrosis.
[2017-11-29] MEDS ORDERED: MIN OIL EACH EYE SCH (13:00)
[2017-11-29] MEDS ORDERED: LIGHT MINERAL OIL EACH EYE SCH (13:00)
[2017-11-29] MEDS: Ferrous Sulfate 325 MG TAB PO SCH (13:06)
[2017-11-29] MEDS: Vitamin D3 2,000 IU SGL PO SCH (13:06)
[2017-11-29] MEDS: Lactulose 10 Gm/15 mL 30mL UDC PO SCH ×3 (13:06→21:44)
[2017-11-29] MEDS: D5-0.45NS 1,000 ML IV SCH (13:11)
--- NOTE | 2017-11-29 13:40 | Diagnostic Imaging Report ---
Paracentesis (ultrasound-guided) HISTORY: Ascites Using ultrasound guidance and sterile technique, 4.0 L of yellow tinted ascitic fluid was aspirated from the right lower quadrant of the abdomen. The patient tolerated the procedure with no immediate apparent clinical complications. IMPRESSION: 1. Paracentesis as noted above
[2017-11-29] MEDS: Triamcinolone Acetonide 0.1% Cream 15 gm TP SCH ×3 (14:10→22:02)
[2017-11-29] MEDS: Polyvinyl Alcohol Ophth Soln 15 mL Bottle EACH EYE SCH ×2 (14:10→16:51)
--- NOTE | 2017-11-29 14:16 | Infectious Disease Prog Note ---
Infectious Disease Subjective - Review of Systems Service Date: 11/29/17 Subjective: Patient is known to me from previous admissions patient brought in for nausea or vomiting distended abdomen. Abdominal paracentesis was performed and forwarded to the fluid was removed. Patient is to complain nausea vomiting. Subsequent abdominal pain and taking pain medication. Infectious Disease Objective - Results Result Diagrams: 11/29/17 06:06 11/29/17 06:06 Recent Labs: Laboratory Last Values WBC 2.4 Th/cmm (4.8-10.8) L* 11/29/17 06:06 RBC 2.79 Mil/cmm (3.80-5.80) L 11/29/17 06:06 Hgb 8.5 gm/dL (12-16) L 11/29/17 06:06 Hct 24.5 % (41.0-60) L 11/29/17 06:06 MCV 87.8 fl (80-99) 11/29/17 06:06 MCH 30.4 pg (27.0-31.0) 11/29/17 06:06 MCHC Differential 34.6 pg (28.0-36.0) 11/29/17 06:06 RDW 16.3 % (11.5-20.0) 11/29/17 06:06 Plt Count 50 Th/cmm (150-400) L 11/29/17 06:06 MPV 7.6 fl 11/29/17 06:06 Neutrophils % 40.3 % (40.0-80.0) 11/29/17 06:06 Band Neutrophils % 0 % (0-10) 11/28/17 17:33 Lymphocytes % 39.7 % (20.0-50.0) 11/29/17 06:06 Monocytes % 11.4 % (2.0-10.0) H 11/29/17 06:06 Eosinophils % 6.3 % (0.0-5.0) H 11/29/17 06:06 Basophils % 2.3 % (0.0-2.0) H 11/29/17 06:06 Neutrophils (Manual) 54 % (40-80) 11/28/17 17:33 Lymphocytes 35 % (20-50) 11/28/17 17:33 Monocytes 8 % (2-10) 11/28/17 17:33 Eosinophils 2 % (0-5) 11/28/17 17:33 Basophils 1 % (0-3) 11/28/17 17:33 Platelet Estimate DECREASED PLATELETS (NORMAL) 11/28/17 17:33 PT 13.9 SECONDS (9.5-11.5) H 11/28/17 17:33 INR 1.32 (0.5-1.4) 11/28/17 17:33 Sodium 134 mEq/L (136-145) L 11/29/17 06:06 Potassium 3.7 mEq/L (3.5-5.1) 11/29/17 06:06 Chloride 107 mEq/L (98-107) 11/29/17 06:06 Carbon Dioxide 24.1 mEq/L (21.0-31.0) 11/29/17 06:06 Anion Gap 6.6 (7.0-16.0) L 11/29/17 06:06 BUN 5 mg/dL (7-25) L 11/29/17 06:06 Creatinine 0.6 mg/dL (0.7-1.3) L 11/29/17 06:06 Est GFR ( Amer) > 60.0 ml/min (>90) 11/29/17 06:06 Est GFR (Non-Af Amer) > 60.0 ml/min 11/29/17 06:06 BUN/Creatinine Ratio 8.3 11/29/17 06:06 Glucose 91 mg/dL (70-105) 11/29/17 06:06 Whole Bld Lactic Acid 1.16 mmol/L (0.60-1.99) 11/28/17 17: Calcium 7.7 mg/dL (8.6-10.3) L 11/29/17 06:06 Total Bilirubin 0.9 mg/dL (0.3-1.0) 11/29/17 06:06 AST 22 U/L (13-39) 11/29/17 06:06 ALT 9 U/L (7-52) 11/29/17 06:06 Alkaline Phosphatase 45 U/L (34-104) 11/29/17 06:06 Creatine Kinase 43 U/L (30-223) 11/28/17 17:33 Troponin I 0.02 ng/mL (0.01-0.05) 11/28/17 17:33 B-Natriuretic Peptide 73.8 pg/mL (5.0-100.0) 11/28/17 17:33 Total Protein 5.0 gm/dL (6.0-8.3) L 11/29/17 06:06 Albumin 1.9 gm/dL (4.2-5.5) L 11/29/17 06:06 Globulin 3.1 gm/dL 11/29/17 06:06 Albumin/Globulin Ratio 0.6 (1.0-1.8) L 11/29/17 06:06 Triglycerides 63 mg/dL (<150) 11/29/17 06:06 Cholesterol 76 mg/dL (<200) 11/29/17 06:06 LDL Cholesterol Direct 45 mg/dL (75-193) L 11/29/17 06:06 HDL Cholesterol 11 mg/dL (23-92) L 11/29/17 06:06 Amylase 13 U/L (29-103) L 11/29/17 06:06 Lipase 8 U/L (11-82) L 11/29/17 06:06 - Physical Exam Vitals and I&O: Vital Signs Temp 98.1 F 11/29/17 05:23 Pulse 20 11/29/17 05:23 Resp 20 11/29/17 05:23 BP 121/70 11/29/17 05:23 Pulse Ox 100 11/29/17 05:23 Intake & Output 11/28/17 11/29/17 11/29/17 18:59 06:59 18:59 Intake Total 1000 Balance 1000 Weight (lbs) 90.718 kg 90.718 kg Intake: Intake, IV Amount 1000 Sodium Chloride 0.9% 1, 1000 000 ml @ 100 mls/hr IV . Q10H ONE Rx#:[id number] Oral 0 Other: Weight Source Patient stated Bedscale Active Medications: Current Medications Artificial Tears (Artificial Tears Ophth Soln) 1 drop EACH EYE BID [facility] Stop: 01/28/18 10:59 Last Admin: 11/29/17 14:10 Dose: 1 drop Dicyclomine HCl (Bentyl) 20 mg PO BID [facility] Stop: 01/28/18 16:59 Diphenhydramine HCl (Benadryl) 25 mg PO TID [facility] Stop: 01/28/18 13:59 Last Admin: 11/29/17 14:11 Dose: Not Given Ferrous Sulfate (Iron) 325 mg PO DAILY [facility] Stop: 01/28/18 09:59 Last Admin: 11/29/17 13:06 Dose: Not Given Hydromorphone HCl (Dilaudid) 1 mg IVP Q4H PRN PRN Reason: Abdominal Pain Stop: 01/28/18 01:29 Last Admin: 11/29/17 13:03 Dose: 1 mg Hydromorphone HCl (Dilaudid) 2 mg PO Q4H PRN PRN Reason: Pain (Severe) Stop: 01/28/18 09:45 Hydroxyzine HCl (Atarax) 25 mg PO TID [facility]; Protocol Stop: 01/28/18 13:59 Last Admin: 11/29/17 14:11 Dose: Not Given Dextrose/Sodium Chloride (D5-0.45ns) 1,000 mls @ 75 mls/hr IV .[id number] [facility] Stop: 01/28/18 08:29 Last Admin: 11/29/17 13:11 Dose: 75 mls/hr Lactulose (Cephulac) 60 gm PO QID [facility] Stop: 01/28/18 12:59 Last Admin: 11/29/17 13:06 Dose: Not Given Levocarnitine (Carnitor) 330 mg PO BID [facility] Stop: 01/28/18 16:59 Miscellaneous (Light Mineral Oil/Min Oil/Pf [Retaine Mgd Eye Drops]) 1 drop EACH EYE QID [facility] Stop: 01/28/18 12:59 Miscellaneous (Melatonin [Melatonin]) 6 mg PO HS [facility] Stop: 01/28/18 20:59 Trazodone HCl (Desyrel) 50 mg PO HS [facility]; Protocol Stop: 01/28/18 20:59 Triamcinolone Acetonide (Kenalog 0.1%) 1 appl TP QID [facility] Stop: 01/28/18 12:59 Last Admin: 11/29/17 14:10 Dose: 1 appl Vitamin D (Vitamin D3) 2,000 iu PO DAILY [facility] Stop: 01/28/18 09:59 Last Admin: 11/29/17 13:06 Dose: Not Given General: no acute distress, cachectic HEENT: atraumatic, normocephalic, EOMI Neck: supple, no thyromegaly Cardiovascular: S1S2, no regular Lungs: clear to auscultation bilaterally, clear to percussion Abdomen: soft, no tender, no distended, no mass Extremities: no cyanosis, no clubbing Neurological: awake, alert, oriented - Procedures Procedures: Procedures Procedure Code Date EXCISION OF DUODENUM, ENDO, DIAGN [id number] 06/06/17 EXCISION OF STOMACH, ENDO, DIAGN [id number] 06/06/17 EXCISION OF TRANSVERSE COLON, ENDO [id number] 06/06/17 Infectious Disease Assmt/Plan - Assessment Assessment: 1. Pancytopenia secondary to liver disease. 2. History of ORIF related to me which is treated. 3. Cirrhosis. Treated 4. Nausea, vomting and abdominal pain 5. Hepatitis C. 6. Hypertension. 7. Chronic pain syndrome. 8. Asthma, chronic obstructive pulmonary disease. 9. Dyslipidemia. 10. Peptic ulcer disease, gastroesophageal reflux disease. 11. Dementia. 12. Neuropathy. 13. History of methicillin-resistant Staphylococcus aureus infection of the left hip. Left hip prosthesis treated, no signs and symptoms of infection at this time. 14. History of open reduction and internal fixation of the left hip. - Plan Plan: Continue same treatment.
[2017-11-29] MEDS: Dicyclomine 10 mg Cap PO SCH (16:40)
--- NOTE | 2017-11-29 16:48 | History & Physical ---
ADMIT DATE: 11/28/2017 HISTORY OF PRESENT ILLNESS: Very well known primary patient, I saw him in [facility]. The patient is complaining of severe abdominal pain, lost a lot of weight and the patient looks very ill. The patient is known to have a history of underlying hepatitis B, history of psychosis, history of thrombocytopenia. The patient was brought to the ER and was found to have distended abdomen from ascites. The patient was admitted. REVIEW OF SYSTEMS: Abdominal pain, nausea, vomiting, losing weight. History of present illness, has been sick for the last several days with severe abdominal pain. PAST MEDICAL HISTORY: As noted above. PAST SURGICAL HISTORY: As noted above. FAMILY HISTORY: Unremarkable. PHYSICAL EXAMINATION: HEAD: Normal. ENT: Normal. NECK: Supple, nontender. LUNGS: Clear. CARDIOVASCULAR SYSTEM: S1, S2 heard. ABDOMEN: Soft. Bowel sounds are heard. Abdomen was distended. DIAGNOSES: Ascites, pancytopenia, liver disease, history of hepatitis B, history of ORIF, history of cirrhosis of the liver, history of thrombocytopenia. PLAN: The patient is being admitted and I will have Hematological consultation and Infectious consultation and paracentesis and I will follow the patient. [facility]# [id number]
--- NOTE | 2017-11-29 18:35 | Consultation ---
DATE OF CONSULTATION: 11/29/2017 HEMATOLOGY/ONCOLOGY CONSULTATION REFERRING BY: Dr. Nair. REASON FOR CONSULTATION: Thrombocytopenia. HISTORY OF PRESENT ILLNESS: The patient is a 66-year-old male who is well known to me from previous evaluation. The patient was admitted to the hospital with abdominal pain. He had an ultrasound, which showed ascites and underwent paracentesis of 4 liters. He continues to have abdominal pain. His last bowel movement was yesterday. The patient stated that he fell down 3 days ago and started having the pain after that. There is no sign or evidence of bleeding from any site. PAST MEDICAL HISTORY: Liver cirrhosis, hepatitis C, chronic thrombocytopenia, psychosis, hypertension, diabetes. MEDICATIONS: Reviewed. SOCIAL HISTORY: Resides in a nursing facility. FAMILY HISTORY: Irrelevant. PHYSICAL EXAMINATION: GENERAL: The patient is awake, agitated, seems to be anxious, constantly moving. VITAL SIGNS: Stable. HEENT: Atraumatic. No mucosal lesions or bleeding. NECK: No lymphadenopathy. CHEST: Good air entry. ABDOMEN: Soft. There is diffuse tenderness. No guarding or rebound. EXTREMITIES: No evidence of hematomas, no edema. LABORATORY DATA: Coagulation, INR 1.32. White count 2.4, hemoglobin 8.5, platelets 15, creatinine 0.6. AST, ALT and alkaline phosphatase are normal. ASSESSMENT: Liver cirrhosis, hepatitis C, chronic thrombocytopenia. The platelet count is adequate, not associated with spontaneous bleeding. There is no need to transfuse. I will follow the coagulation parameters and platelet count for now. Should the platelet count drops further or there is evidence of bleeding, I will start the patient on Promacta. Thank you, Dr. Nair for the opportunity to participate in the care of this interesting case. JOB# [id number]
[2017-11-29 19:21] LABS: BF APPEARANCE HAZY; BF COLOR PALE YELLOW; BF RBC 19 /cumm; BF WBC 12 /cumm; BODY FLUID SITE ABDOMEN; BODY FLUID SOURCE PARACENTHESIS
[2017-11-29] MEDS ORDERED: Non-Formulary Item 1 EA (Melatonin [Melatonin] 6 MG) PO SCH (21:00)
[2017-11-29 21:35] LABS: URINE BLOOD TRACE (NEGATIVE); URINE GLUCOSE (UA) NEGATIVE (NEGATIVE); URINE KETONE TRACE mg/dL (NEGATIVE); URINE LEUKOCYTE ESTERASE NEGATIVE (NEGATIVE); URINE MICROSCOPIC INDICATED? YES; URINE NITRATE NEGATIVE (NEGATIVE); URINE PH 6.5 (4.6 - 8.0); URINE PROTEIN NEGATIVE (NEGATIVE); URINE SOURCE CLEAN C; URINE UROBILINOGEN 0.2 E.U./dL (0.2 - 1.0)
[2017-11-29 21:50] LABS: URINE CLARITY SLIGHTLY HAZY (CLEAR); URINE COLOR YELLOW
[2017-11-29 21:51] LABS: URINE BILIRUBIN NEGATIVE (NEGATIVE)
[2017-11-29 21:52] LABS: URINE BACTERIA NONE SEEN /hpf (NONE SEEN); URINE EPITHELIAL CELLS OCCASIONAL /lpf (FEW); URINE WBC 0-2 /hpf (0-5)
[2017-11-30] MEDS: HYDROmorphone 2 mg/mL 1mL Vial IVP PRN ×4 (01:50→23:47)
[2017-11-30] MEDS: Triamcinolone Acetonide 0.1% Cream 15 gm TP SCH ×4 (03:00→21:50)
[2017-11-30 07:30] LABS: % BASOPHILS 1.4 % (0.0-2.0); % EOSINOPHILS 6.8 % (0.0-5.0); % LYMPHOCYTES 50.9 % (20.0-50.0); % MONOCYTES 8.1 % (2.0-10.0); % NEUTROPHILS 32.8 % (40.0-80.0); EOSINOPHILE ABSOLUTE 0.2 Th/cmm (0.1-0.4); HEMATOCRIT 27.4 % (41.0-60); HEMOGLOBIN 8.9 gm/dL (12-16); LYMPHOCYTE ABSOLUTE 1.5 Th/cmm (1.5-3.0); MEAN CELL VOLUME 88.9 fl (80-99); MEAN CORPUSCULAR HEMOGLOBIN 28.9 pg (27.0-31.0); MEAN CORPUSCULAR HGB CONC 32.6 pg (28.0-36.0); MONOCYTE ABSOLUTE 0.2 Th/cmm (0.3-1.0); NEUTROPHILE ABSOLUTE 0.9 Th/cmm (1.8-8.0); PLATELET COUNT 39 Th/cmm (150-400); RED BLOOD COUNT 3.08 Mil/cmm (3.80-5.80); RED CELL DISTRIBUTION WIDTH 16.5 % (11.5-20.0)
[2017-11-30 07:53] LABS: INR 1.73 (0.5-1.4); PROTHROMBIN TIME (TEST) 18.5 SECONDS (9.5-11.5)
[2017-11-30 07:57] LABS: WHITE BLOOD COUNT 2.8 Th/cmm (4.8-10.8)
[2017-11-30] MEDS: Polyvinyl Alcohol Ophth Soln 15 mL Bottle EACH EYE SCH ×5 (09:00→21:50)
--- NOTE | 2017-11-30 09:51 | GI Progress Note ---
Subjective - Review of Systems Service Date: 11/30/17 Subjective: Had 4 L removed via paracentesis yesterday. Feeling a bit better Objective - Results Result Diagrams: 11/30/17 06:15 11/29/17 06:06 Recent Labs: Laboratory Last Values WBC 2.8 Th/cmm (4.8-10.8) L 11/30/17 06:15 RBC 3.08 Mil/cmm (3.80-5.80) L 11/30/17 06:15 Hgb 8.9 gm/dL (12-16) L 11/30/17 06:15 Hct 27.4 % (41.0-60) L 11/30/17 06:15 MCV 88.9 fl (80-99) 11/30/17 06:15 MCH 28.9 pg (27.0-31.0) 11/30/17 06:15 MCHC Differential 32.6 pg (28.0-36.0) 11/30/17 06:15 RDW 16.5 % (11.5-20.0) 11/30/17 06:15 Plt Count 39 Th/cmm (150-400) L 11/30/17 06:15 MPV 9.0 fl 11/30/17 06:15 Neutrophils % 32.8 % (40.0-80.0) L 11/30/17 06:15 Band Neutrophils % 0 % (0-10) 11/28/17 17:33 Lymphocytes % 50.9 % (20.0-50.0) H 11/30/17 06:15 Monocytes % 8.1 % (2.0-10.0) 11/30/17 06:15 Eosinophils % 6.8 % (0.0-5.0) H 11/30/17 06:15 Basophils % 1.4 % (0.0-2.0) 11/30/17 06:15 Neutrophils (Manual) 54 % (40-80) 11/28/17 17:33 Lymphocytes 35 % (20-50) 11/28/17 17:33 Monocytes 8 % (2-10) 11/28/17 17:33 Eosinophils 2 % (0-5) 11/28/17 17:33 Basophils 1 % (0-3) 11/28/17 17:33 Platelet Estimate DECREASED PLATELETS (NORMAL) 11/28/17 17:33 PT 18.5 SECONDS (9.5-11.5) H 11/30/17 06:15 INR 1.73 (0.5-1.4) H 11/30/17 06:15 PTT (Actin FS) 39.0 SECONDS (26.0-38.0) H 11/30/17 06:15 Sodium 134 mEq/L (136-145) L 11/29/17 06:06 Potassium 3.7 mEq/L (3.5-5.1) 11/29/17 06:06 Chloride 107 mEq/L (98-107) 11/29/17 06:06 Carbon Dioxide 24.1 mEq/L (21.0-31.0) 11/29/17 06:06 Anion Gap 6.6 (7.0-16.0) L 11/29/17 06:06 BUN 5 mg/dL (7-25) L 11/29/17 06:06 Creatinine 0.6 mg/dL (0.7-1.3) L 11/29/17 06:06 Est GFR ( Amer) > 60.0 ml/min (>90) 11/29/17 06:06 Est GFR (Non-Af Amer) > 60.0 ml/min 11/29/17 06:06 BUN/Creatinine Ratio 8.3 11/29/17 06:06 Glucose 91 mg/dL (70-105) 11/29/17 06:06 Whole Bld Lactic Acid 1.16 mmol/L (0.60-1.99) 11/28/17 17:33 Calcium 7.7 mg/dL (8.6-10.3) L 11/29/17 06:06 Total Bilirubin 0.9 mg/dL (0.3-1.0) 11/29/17 06:06 AST 22 U/L (13-39) 11/29/17 06:06 ALT 9 U/L (7-52) 11/29/17 06:06 Alkaline Phosphatase 45 U/L (34-104) 11/29/17 06:06 Creatine Kinase 43 U/L (30-223) 11/28/17 17:33 Troponin I 0.02 ng/mL (0.01-0.05) 11/28/17 17:33 B-Natriuretic Peptide 73.8 pg/mL (5.0-100.0) 11/28/17 17:33 Total Protein 5.0 gm/dL (6.0-8.3) L 11/29/17 06:06 Albumin 1.9 gm/dL (4.2-5.5) L 11/29/17 06:06 Globulin 3.1 gm/dL 11/29/17 06:06 Albumin/Globulin Ratio 0.6 (1.0-1.8) L 11/29/17 06:06 Triglycerides 63 mg/dL (<150) 11/29/17 06:06 Cholesterol 76 mg/dL (<200) 11/29/17 06:06 LDL Cholesterol Direct 45 mg/dL (75-193) L 11/29/17 06:06 HDL Cholesterol 11 mg/dL (23-92) L 11/29/17 06:06 Amylase 13 U/L (29-103) L 11/29/17 06:06 Lipase 8 U/L (11-82) L 11/29/17 06:06 Urine Source CLEAN C 11/29/17 20:55 Urine Color YELLOW 11/29/17 20:55 Urine Clarity SLIGHTLY HAZY (CLEAR) 11/29/17 20:55 Urine pH 6.5 (4.6 - 8.0) 11/29/17 20:55 Ur Specific [place] 1.025 (1.005-1.030) 11/29/17 20:55 Urine Protein NEGATIVE mg/dL (NEGATIVE) 11/29/17 20:55 Urine Glucose (UA) NEGATIVE mg/dL (NEGATIVE) 11/29/17 20:55 Urine Ketones TRACE mg/dL (NEGATIVE) 11/29/17 20:55 Urine Blood TRACE (NEGATIVE) 11/29/17 20:55 Urine Nitrate NEGATIVE (NEGATIVE) 11/29/17 20:55 Urine Bilirubin NEGATIVE (NEGATIVE) 11/29/17 20:55 Urine Urobilinogen 0.2 E.U./dL (0.2 - 1.0) 11/29/17 20:55 Ur Leukocyte Esterase NEGATIVE (NEGATIVE) 11/29/17 20:55 Urine RBC 5-10 /hpf (0-5) H 11/29/17 20:55 Urine WBC 0-2 /hpf (0-5) 11/29/17 20:55 Ur Epithelial Cells OCCASIONAL /lpf (FEW) 11/29/17 20:55 Urine Bacteria NONE SEEN /hpf (NONE SEEN) 11/29/17 20:55 Urine Mucus MODERATE /lpf (FEW) 11/29/17 20:55 Body Fluid Site ABDOMEN 11/29/17 13:40 Fluid Source PARACENTHESIS 11/29/17 13:40 Fluid Color PALE YELLOW 11/29/17 13:40 Fluid Appearance HAZY 11/29/17 13:40 Fluid WBC 12 /cumm 11/29/17 13:40 Fluid RBC 19 /cumm 11/29/17 13:40 Fluid Total Protein 1.4 g/dL 11/29/17 13:40 Fluid LDH 40 U/L 11/29/17 13:40 - Physical Exam Vitals and I&O: Vital Signs Temp 97.2 F 11/30/17 06:12 Pulse 72 11/30/17 06:12 Resp 18 11/30/17 06:12 BP 104/58 11/30/17 06:12 Pulse Ox 94 11/30/17 06:12 Intake & Output 11/29/17 11/30/17 11/30/17 18:59 06:59 18:59 Intake Total 1000 Output Total 4000 Balance -3000 Weight (lbs) 83.007 kg Intake: Oral 1000 Output: Other 4000 Other: # Voids 1 # Bowel Movements 0 Weight Source Bedscale Active Medications: Current Medications Artificial Tears (Artificial Tears Ophth Soln) 1 drop EACH EYE BID [facility] Stop: 01/28/18 10:59 Last Admin: 11/29/17 16:51 Dose: 1 drop Artificial Tears (Artificial Tears Ophth Soln) 1 drop EACH EYE QID [facility] Stop: 01/29/18 12:59 Dicyclomine HCl (Bentyl) 20 mg PO BID [facility] Stop: 01/28/18 16:59 Last Admin: 11/29/17 16:40 Dose: 20 mg Diphenhydramine HCl (Benadryl) 25 mg PO TID [facility] Stop: 01/28/18 13:59 Last Admin: 11/29/17 21:42 Dose: 25 mg Ferrous Sulfate (Iron) 325 mg PO DAILY [facility] Stop: 01/28/18 09:59 Last Admin: 11/29/17 13:06 Dose: Not Given Hydromorphone HCl (Dilaudid) 1 mg IVP Q4H PRN PRN Reason: Abdominal Pain Stop: 01/28/18 01:29 Last Admin: 11/30/17 06:05 Dose: 1 mg Hydromorphone HCl (Dilaudid) 2 mg PO Q4H PRN PRN Reason: Pain (Severe) Stop: 01/28/18 09:45 Hydroxyzine HCl (Atarax) 25 mg PO TID [facility]; Protocol Stop: 01/28/18 13:59 Last Admin: 11/29/17 21:42 Dose: 25 mg Dextrose/Sodium Chloride (D5-0.45ns) 1,000 mls @ 75 mls/hr IV .[id number] [facility] Stop: 01/28/18 08:29 Last Admin: 11/29/17 13:11 Dose: 75 mls/hr Lactulose (Cephulac) 60 gm PO QID [facility] Stop: 01/28/18 12:59 Last Admin: 11/29/17 21:44 Dose: Not Given Levocarnitine (Carnitor) 330 mg PO BID [facility] Stop: 01/28/18 16:59 Last Admin: 11/29/17 17:20 Dose: 330 mg Miscellaneous (Light Mineral Oil/Min Oil/Pf [Retaine Mgd Eye Drops]) 1 drop EACH EYE QID [facility] Stop: 01/28/18 12:59 Trazodone HCl (Desyrel) 50 mg PO HS [facility]; Protocol Stop: 01/28/18 20:59 Last Admin: 11/29/17 21:43 Dose: 50 mg Triamcinolone Acetonide (Kenalog 0.1%) 1 appl TP QID [facility] Stop: 01/28/18 12:59 Last Admin: 11/29/17 22:02 Dose: 1 appl Vitamin D (Vitamin D3) 2,000 iu PO DAILY [facility] Stop: 01/28/18 09:59 Last Admin: 11/29/17 13:06 Dose: Not Given General: Alert HEENT: Atraumatic Neck: Supple Cardiovascular: Regular rate Abdomen: Bowel sounds, Soft, Tender, Distended, no Hepatomegaly, no Rebound, no Mass, no Guarding Skin: no Rash - Procedures Procedures: Procedures Procedure Code Date EXCISION OF DUODENUM, ENDO, DIAGN [id number] 06/06/17 EXCISION OF STOMACH, ENDO, DIAGN [id number] 06/06/17 EXCISION OF TRANSVERSE COLON, ENDO [id number] 06/06/17 Assessment/Plan - Assessment Assessment: # Cirrhosis, 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 Decompensated by: # Ascites and hepatic encephalopathy # Abd pain # Back pain Pt is often admitted for back and abd pain. He had EGD/colo in 06/2017 that showed no varices, gastritis, hemorrhoids, and one transverse colon polyp ( tubular adenoma). At current time, he has massive ascites, and is s/p 4L paracentesis on 11/29. No SBP. However, he also has had a long history of abd pain, and opiate dependence. 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 Plan: - Will start lasix and aldactone. Increase as tolerated by electrolytes - lactulose bid to prevent encephalopathy and constipation - HCC screening is up to date, he had CT scan 10/2017 that was negative - Not due for variceal screening until 06/2018 - pain management as per primary - not due for colonoscopy until 06/2020 unless he has any GI bleeding - low salt diet recommended
[2017-11-30] MEDS: Lactulose 10 Gm/15 mL 30mL UDC PO SCH ×4 (09:57→21:24)
[2017-11-30] MEDS: Dicyclomine 10 mg Cap PO SCH ×2 (09:58→17:00)
[2017-11-30] MEDS: Ferrous Sulfate 325 MG TAB PO SCH (09:58)
[2017-11-30] MEDS: Vitamin D3 2,000 IU SGL PO SCH (09:59)
--- NOTE | 2017-11-30 10:17 | Infectious Disease Prog Note ---
Infectious Disease Subjective - Review of Systems Service Date: 11/30/17 Subjective: Patient is to complain nausea vomiting. c/o abdominal pain and taking pain medication. Infectious Disease Objective - Results Result Diagrams: 11/30/17 06:15 11/29/17 06:06 Recent Labs: Laboratory Last Values WBC 2.8 Th/cmm (4.8-10.8) L 11/30/17 06:15 RBC 3.08 Mil/cmm (3.80-5.80) L 11/30/17 06:15 Hgb 8.9 gm/dL (12-16) L 11/30/17 06:15 Hct 27.4 % (41.0-60) L 11/30/17 06:15 MCV 88.9 fl (80-99) 11/30/17 06:15 MCH 28.9 pg (27.0-31.0) 11/30/17 06:15 MCHC Differential 32.6 pg (28.0-36.0) 11/30/17 06:15 RDW 16.5 % (11.5-20.0) 11/30/17 06:15 Plt Count 39 Th/cmm (150-400) L 11/30/17 06:15 MPV 9.0 fl 11/30/17 06:15 Neutrophils % 32.8 % (40.0-80.0) L 11/30/17 06:15 Band Neutrophils % 0 % (0-10) 11/28/17 17:33 Lymphocytes % 50.9 % (20.0-50.0) H 11/30/17 06:15 Monocytes % 8.1 % (2.0-10.0) 11/30/17 06:15 Eosinophils % 6.8 % (0.0-5.0) H 11/30/17 06:15 Basophils % 1.4 % (0.0-2.0) 11/30/17 06:15 Neutrophils (Manual) 54 % (40-80) 11/28/17 17:33 Lymphocytes 35 % (20-50) 11/28/17 17:33 Monocytes 8 % (2-10) 11/28/17 17:33 Eosinophils 2 % (0-5) 11/28/17 17:33 Basophils 1 % (0-3) 11/28/17 17:33 Platelet Estimate DECREASED PLATELETS (NORMAL) 11/28/17 17:33 PT 18.5 SECONDS (9.5-11.5) H 11/30/17 06:15 INR 1.73 (0.5-1.4) H 11/30/17 06:15 PTT (Actin FS) 39.0 SECONDS (26.0-38.0) H 11/30/17 06:15 Sodium 134 mEq/L (136-145) L 11/29/17 06:06 Potassium 3.7 mEq/L (3.5-5.1) 11/29/17 06:06 Chloride 107 mEq/L (98-107) 11/29/17 06:06 Carbon Dioxide 24.1 mEq/L (21.0-31.0) 11/29/17 06:06 Anion Gap 6.6 (7.0-16.0) L 11/29/17 06:06 BUN 5 mg/dL (7-25) L 11/29/17 06:06 Creatinine 0.6 mg/dL (0.7-1.3) L 11/29/17 06:06 Est GFR ( Amer) > 60.0 ml/min (>90) 11/29/17 06:06 Est GFR (Non-Af Amer) > 60.0 ml/min 11/29/17 06:06 BUN/Creatinine Ratio 8.3 11/29/17 06:06 Glucose 91 mg/dL (70-105) 11/29/17 06:06 Whole Bld Lactic Acid 1.16 mmol/L (0.60-1.99) 11/28/17 17:33 Calcium 7.7 mg/dL (8.6-10.3) L 11/29/17 06:06 Total Bilirubin 0.9 mg/dL (0.3-1.0) 11/29/17 06:06 AST 22 U/L (13-39) 11/29/17 06:06 ALT 9 U/L (7-52) 11/29/17 06:06 Alkaline Phosphatase 45 U/L (34-104) 11/29/17 06:06 Creatine Kinase 43 U/L (30-223) 11/28/17 17:33 Troponin I 0.02 ng/mL (0.01-0.05) 11/28/17 17:33 B-Natriuretic Peptide 73.8 pg/mL (5.0-100.0) 11/28/17 17:33 Total Protein 5.0 gm/dL (6.0-8.3) L 11/29/17 06:06 Albumin 1.9 gm/dL (4.2-5.5) L 11/29/17 06:06 Globulin 3.1 gm/dL 11/29/17 06:06 Albumin/Globulin Ratio 0.6 (1.0-1.8) L 11/29/17 06:06 Triglycerides 63 mg/dL (<150) 11/29/17 06:06 Cholesterol 76 mg/dL (<200) 11/29/17 06:06 LDL Cholesterol Direct 45 mg/dL (75-193) L 11/29/17 06:06 HDL Cholesterol 11 mg/dL (23-92) L 11/29/17 06:06 Amylase 13 U/L (29-103) L 11/29/17 06:06 Lipase 8 U/L (11-82) L 11/29/17 06:06 Urine Source CLEAN C 11/29/17 20:55 Urine Color YELLOW 11/29/17 20:55 Urine Clarity SLIGHTLY HAZY (CLEAR) 11/29/17 20:55 Urine pH 6.5 (4.6 - 8.0) 11/29/17 20:55 Ur Specific [place] 1.025 (1.005-1.030) 11/29/17 20:55 Urine Protein NEGATIVE mg/dL (NEGATIVE) 11/29/17 20:55 Urine Glucose (UA) NEGATIVE mg/dL (NEGATIVE) 11/29/17 20:55 Urine Ketones TRACE mg/dL (NEGATIVE) 11/29/17 20:55 Urine Blood TRACE (NEGATIVE) 11/29/17 20:55 Urine Nitrate NEGATIVE (NEGATIVE) 11/29/17 20:55 Urine Bilirubin NEGATIVE (NEGATIVE) 11/29/17 20:55 Urine Urobilinogen 0.2 E.U./dL (0.2 - 1.0) 11/29/17 20:55 Ur Leukocyte Esterase NEGATIVE (NEGATIVE) 11/29/17 20:55 Urine RBC 5-10 /hpf (0-5) H 11/29/17 20:55 Urine WBC 0-2 /hpf (0-5) 11/29/17 20:55 Ur Epithelial Cells OCCASIONAL /lpf (FEW) 11/29/17 20:55 Urine Bacteria NONE SEEN /hpf (NONE SEEN) 11/29/17 20:55 Urine Mucus MODERATE /lpf (FEW) 11/29/17 20:55 Body Fluid Site ABDOMEN 11/29/17 13:40 Fluid Source PARACENTHESIS 11/29/17 13:40 Fluid Color PALE YELLOW 11/29/17 13:40 Fluid Appearance HAZY 11/29/17 13:40 Fluid WBC 12 /cumm 11/29/17 13:40 Fluid RBC 19 /cumm 11/29/17 13:40 Fluid Total Protein 1.4 g/dL 11/29/17 13:40 Fluid LDH 40 U/L 11/29/17 13:40 - Physical Exam Vitals and I&O: Vital Signs Temp 96.9 F 11/30/17 08:00 Pulse 71 11/30/17 08:00 Resp 17 11/30/17 08:00 BP 109/54 11/30/17 08:00 Pulse Ox 93 11/30/17 08:00 Intake & Output 11/29/17 11/30/17 11/30/17 18:59 06:59 18:59 Intake Total 1000 Output Total 4000 Balance -3000 Weight (lbs) 83.007 kg Intake: Oral 1000 Output: Other 4000 Other: # Voids 1 # Bowel Movements 0 Weight Source Bedscale Active Medications: Current Medications Artificial Tears (Artificial Tears Ophth Soln) 1 drop EACH EYE BID [facility] Stop: 01/28/18 10:59 Last Admin: 11/29/17 16:51 Dose: 1 drop Artificial Tears (Artificial Tears Ophth Soln) 1 drop EACH EYE QID [facility] Stop: 01/29/18 12:59 Dicyclomine HCl (Bentyl) 20 mg PO BID [facility] Stop: 01/28/18 16:59 Last Admin: 11/30/17 09:58 Dose: 20 mg Diphenhydramine HCl (Benadryl) 25 mg PO TID [facility] Stop: 01/28/18 13:59 Last Admin: 11/30/17 09:58 Dose: 25 mg Ferrous Sulfate (Iron) 325 mg PO DAILY [facility] Stop: 01/28/18 09:59 Last Admin: 11/30/17 09:58 Dose: 325 mg Furosemide (Lasix) 20 mg PO DAILY [facility] Stop: 01/29/18 09:59 Hydromorphone HCl (Dilaudid) 1 mg IVP Q4H PRN PRN Reason: Abdominal Pain Stop: 01/28/18 01:29 Last Admin: 11/30/17 06:05 Dose: 1 mg Hydromorphone HCl (Dilaudid) 2 mg PO Q4H PRN PRN Reason: Pain (Severe) Stop: 01/28/18 09:45 Hydroxyzine HCl (Atarax) 25 mg PO TID [facility]; Protocol Stop: 01/28/18 13:59 Last Admin: 11/30/17 09:58 Dose: 25 mg Dextrose/Sodium Chloride (D5-0.45ns) 1,000 mls @ 75 mls/hr IV .[id number] [facility] Stop: 01/28/18 08:29 Last Admin: 11/29/17 13:11 Dose: 75 mls/hr Lactulose (Cephulac) 60 gm PO QID [facility] Stop: 01/28/18 12:59 Last Admin: 11/30/17 09:57 Dose: 60 gm Levocarnitine (Carnitor) 330 mg PO BID [facility] Stop: 01/28/18 16:59 Last Admin: 11/29/17 17:20 Dose: 330 mg Miscellaneous (Light Mineral Oil/Min Oil/Pf [Retaine Mgd Eye Drops]) 1 drop EACH EYE QID [facility] Stop: 01/28/18 12:59 Spironolactone (Aldactone) 50 mg PO DAILY [facility] Stop: 01/29/18 09:59 Trazodone HCl (Desyrel) 50 mg PO HS [facility]; Protocol Stop: 01/28/18 20:59 Last Admin: 11/29/17 21:43 Dose: 50 mg Triamcinolone Acetonide (Kenalog 0.1%) 1 appl TP QID [facility] Stop: 01/28/18 12:59 Last Admin: 11/29/17 22:02 Dose: 1 appl Vitamin D (Vitamin D3) 2,000 iu PO DAILY [facility] Stop: 01/28/18 09:59 Last Admin: 11/30/17 09:59 Dose: 2,000 iu General: no acute distress, cachectic HEENT: atraumatic, normocephalic, EOMI Neck: supple, no thyromegaly Cardiovascular: S1S2, regular Lungs: clear to auscultation bilaterally, clear to percussion Abdomen: soft, no tender, no distended, no mass, no rebound Extremities: no cyanosis, no clubbing, no edema Neurological: awake, alert, oriented Skin: intact - Procedures Procedures: Procedures Procedure Code Date EXCISION OF DUODENUM, ENDO, DIAGN [id number] 06/06/17 EXCISION OF STOMACH, ENDO, DIAGN [id number] 06/06/17 EXCISION OF TRANSVERSE COLON, ENDO [id number] 06/06/17 Infectious Disease Assmt/Plan - Assessment Assessment: 1. Pancytopenia secondary to liver disease. 2. History of ORIF related to me which is treated. 3. Cirrhosis. Treated 4. Nausea, vomting and abdominal pain 5. Hepatitis C. 6. Hypertension. 7. Chronic pain syndrome. 8. Asthma, chronic obstructive pulmonary disease. 9. Dyslipidemia. 10. Peptic ulcer disease, gastroesophageal reflux disease. 11. Dementia. 12. Neuropathy. 13. History of methicillin-resistant Staphylococcus aureus infection of the left hip. Left hip prosthesis treated, no signs and symptoms of infection at this time. 14. History of open reduction and internal fixation of the left hip. - Plan Plan: Continue same treatment. Nutritional Asmnt/Malnutr-PDOC - Dietary Evaluation Malnutrition Findings (Please click <Entered> for more info): Nutritional Asmnt/Malnutrition Start: 11/29/17 17: 35 Text: Status: Complete Freq: Protocol: Document 11/29/17 17:35 LCHENG (Rec: 11/29/17 17:41 [email or web address] [email or web address]) Nutritional Asmnt/Malnutrition Patient General Information Nutritional Screening High Risk Diagnosis abd apin, intractable pain, gastritis Pertinent Medical Hx/Surgical Hx hepatitis B, psychosis, thrombocytopeni, HTN, DM, asthma/COPD, PUD/GERD, depresion, schizophrenia, bipolar Subjective Information Pt seen in room having abd ultrasound, not appropirate for interview at this time. Current Diet Order/ Nutrition Support [facility] soft chopped, boost TID Pertinent Medications D5-0.45ns, iron, vit D3 Pertinent Labs 11/29 Na 134, BUN 5, Cr 0.6, Ca 7.7, glucose 91 Nutritional Hx/Data Height 1.83 m Height (Calculated Centimeters) 182.9 Current Weight (lbs) 90.718 kg Weight (Calculated Kilograms) 90.7 Weight (Calculated Grams) 15529.5 [place] Body Weight 178 Body Mass Index (BMI) 27.1 Weight Status Overweight GI Symptoms GI Symptoms None Last BM not indicated Difficult in: None Skin Integrity/Comment: bruise to right and left upper arm Estimated Nutritional Goals BEE in Kcals: Using Current wt Calories/Kcals/Kg 23-27 Kcals Calculated 6890-7423 Protein: Using Current wt Protein g/k.8-1 Protein Calculated 72-91 Fluid: ml 2092-2457ml (1ml/kcal) Nutritional Problem No current Nutrition Prob Problem N/A Intervention/Recommendation Comments 1. Continue with current diet with supplements as ordered. 2. Monitor PO intake, wt, labs and skin integrity 3. F/U as high risk in 2-3 days, 12/01-12/02 Expected Outcomes/Goals Expected Outcomes/Goals 1. PO intake to meet at least 75% of nutritional needs. 2. Wt stability, skin to remain intact, labs to approach WNL.
--- NOTE | 2017-11-30 11:48 | General Progress Note ---
Subjective - Review of Systems Events since last encounter: patient with c/o nausea + vomiting Objective - Results Result Diagrams: 11/30/17 06:15 11/29/17 06:06 Recent Labs: Laboratory Last Values WBC 2.8 Th/cmm (4.8-10.8) L 11/30/17 06:15 RBC 3.08 Mil/cmm (3.80-5.80) L 11/30/17 06:15 Hgb 8.9 gm/dL (12-16) L 11/30/17 06:15 Hct 27.4 % (41.0-60) L 11/30/17 06:15 MCV 88.9 fl (80-99) 11/30/17 06:15 MCH 28.9 pg (27.0-31.0) 11/30/17 06:15 MCHC Differential 32.6 pg (28.0-36.0) 11/30/17 06:15 RDW 16.5 % (11.5-20.0) 11/30/17 06:15 Plt Count 39 Th/cmm (150-400) L 11/30/17 06:15 MPV 9.0 fl 11/30/17 06:15 Neutrophils % 32.8 % (40.0-80.0) L 11/30/17 06:15 Band Neutrophils % 0 % (0-10) 11/28/17 17:33 Lymphocytes % 50.9 % (20.0-50.0) H 11/30/17 06:15 Monocytes % 8.1 % (2.0-10.0) 11/30/17 06:15 Eosinophils % 6.8 % (0.0-5.0) H 11/30/17 06:15 Basophils % 1.4 % (0.0-2.0) 11/30/17 06:15 Neutrophils (Manual) 54 % (40-80) 11/28/17 17:33 Lymphocytes 35 % (20-50) 11/28/17 17:33 Monocytes 8 % (2-10) 11/28/17 17:33 Eosinophils 2 % (0-5) 11/28/17 17:33 Basophils 1 % (0-3) 11/28/17 17:33 Platelet Estimate DECREASED PLATELETS (NORMAL) 11/28/17 17:33 PT 18.5 SECONDS (9.5-11.5) H 11/30/17 06:15 INR 1.73 (0.5-1.4) H 11/30/17 06:15 PTT (Actin FS) 39.0 SECONDS (26.0-38.0) H 11/30/17 06:15 Sodium 134 mEq/L (136-145) L 11/29/17 06:06 Potassium 3.7 mEq/L (3.5-5.1) 11/29/17 06:06 Chloride 107 mEq/L (98-107) 11/29/17 06:06 Carbon Dioxide 24.1 mEq/L (21.0-31.0) 11/29/17 06:06 Anion Gap 6.6 (7.0-16.0) L 11/29/17 06:06 BUN 5 mg/dL (7-25) L 11/29/17 06:06 Creatinine 0.6 mg/dL (0.7-1.3) L 11/29/17 06:06 Est GFR ( Amer) > 60.0 ml/min (>90) 11/29/17 06:06 Est GFR (Non-Af Amer) > 60.0 ml/min 11/29/17 06:06 BUN/Creatinine Ratio 8.3 11/29/17 06:06 Glucose 91 mg/dL (70-105) 11/29/17 06:06 Whole Bld Lactic Acid 1.16 mmol/L (0.60-1.99) 11/28/17 17:33 Calcium 7.7 mg/dL (8.6-10.3) L 11/29/17 06:06 Total Bilirubin 0.9 mg/dL (0.3-1.0) 11/29/17 06:06 AST 22 U/L (13-39) 11/29/17 06:06 ALT 9 U/L (7-52) 11/29/17 06:06 Alkaline Phosphatase 45 U/L (34-104) 11/29/17 06:06 Creatine Kinase 43 U/L (30-223) 11/28/17 17:33 Troponin I 0.02 ng/mL (0.01-0.05) 11/28/17 17:33 B-Natriuretic Peptide 73.8 pg/mL (5.0-100.0) 11/28/17 17:33 Total Protein 5.0 gm/dL (6.0-8.3) L 11/29/17 06:06 Albumin 1.9 gm/dL (4.2-5.5) L 11/29/17 06:06 Globulin 3.1 gm/dL 11/29/17 06:06 Albumin/Globulin Ratio 0.6 (1.0-1.8) L 11/29/17 06:06 Triglycerides 63 mg/dL (<150) 11/29/17 06:06 Cholesterol 76 mg/dL (<200) 11/29/17 06:06 LDL Cholesterol Direct 45 mg/dL (75-193) L 11/29/17 06:06 HDL Cholesterol 11 mg/dL (23-92) L 11/29/17 06:06 Amylase 13 U/L (29-103) L 11/29/17 06:06 Lipase 8 U/L (11-82) L 11/29/17 06:06 Urine Source CLEAN C 11/29/17 20:55 Urine Color YELLOW 11/29/17 20:55 Urine Clarity SLIGHTLY HAZY (CLEAR) 11/29/17 20:55 Urine pH 6.5 (4.6 - 8.0) 11/29/17 20:55 Ur Specific [place] 1.025 (1.005-1.030) 11/29/17 20:55 Urine Protein NEGATIVE mg/dL (NEGATIVE) 11/29/17 20:55 Urine Glucose (UA) NEGATIVE mg/dL (NEGATIVE) 11/29/17 20:55 Urine Ketones TRACE mg/dL (NEGATIVE) 11/29/17 20:55 Urine Blood TRACE (NEGATIVE) 11/29/17 20:55 Urine Nitrate NEGATIVE (NEGATIVE) 11/29/17 20:55 Urine Bilirubin NEGATIVE (NEGATIVE) 11/29/17 20:55 Urine Urobilinogen 0.2 E.U./dL (0.2 - 1.0) 11/29/17 20:55 Ur Leukocyte Esterase NEGATIVE (NEGATIVE) 11/29/17 20:55 Urine RBC 5-10 /hpf (0-5) H 11/29/17 20:55 Urine WBC 0-2 /hpf (0-5) 11/29/17 20:55 Ur Epithelial Cells OCCASIONAL /lpf (FEW) 11/29/17 20:55 Urine Bacteria NONE SEEN /hpf (NONE SEEN) 11/29/17 20:55 Urine Mucus MODERATE /lpf (FEW) 11/29/17 20:55 Body Fluid Site ABDOMEN 11/29/17 13:40 Fluid Source PARACENTHESIS 11/29/17 13:40 Fluid Color PALE YELLOW 11/29/17 13:40 Fluid Appearance HAZY 11/29/17 13:40 Fluid WBC 12 /cumm 11/29/17 13:40 Fluid RBC 19 /cumm 11/29/17 13:40 Fluid Total Protein 1.4 g/dL 11/29/17 13:40 Fluid LDH 40 U/L 11/29/17 13:40 - Physical Exam Vitals and I&O: Vital Signs Temp 96.9 F 11/30/17 08:00 Pulse 71 11/30/17 08:00 Resp 17 11/30/17 08:00 BP 109/54 11/30/17 08:00 Pulse Ox 93 11/30/17 08:00 Intake & Output 11/29/17 11/30/17 11/30/17 18:59 06:59 18:59 Intake Total 1000 Output Total 4000 Balance -3000 Weight (lbs) 83.007 kg Intake: Oral 1000 Output: Other 4000 Other: # Voids 1 # Bowel Movements 0 Weight Source Bedscale Active Medications: Current Medications Artificial Tears (Artificial Tears Ophth Soln) 1 drop EACH EYE BID [facility] Stop: 01/28/18 10:59 Last Admin: 11/29/17 16:51 Dose: 1 drop Artificial Tears (Artificial Tears Ophth Soln) 1 drop EACH EYE QID [facility] Stop: 01/29/18 12:59 Dicyclomine HCl (Bentyl) 20 mg PO BID [facility] Stop: 01/28/18 16:59 Last Admin: 11/30/17 09:58 Dose: 20 mg Diphenhydramine HCl (Benadryl) 25 mg PO TID [facility] Stop: 01/28/18 13:59 Last Admin: 11/30/17 09:58 Dose: 25 mg Ferrous Sulfate (Iron) 325 mg PO DAILY [facility] Stop: 01/28/18 09:59 Last Admin: 11/30/17 09:58 Dose: 325 mg Hydromorphone HCl (Dilaudid) 1 mg IVP Q4H PRN PRN Reason: Abdominal Pain Stop: 01/28/18 01:29 Last Admin: 11/30/17 06:05 Dose: 1 mg Hydromorphone HCl (Dilaudid) 2 mg PO Q4H PRN PRN Reason: Pain (Severe) Stop: 01/28/18 09:45 Last Admin: 11/30/17 10:18 Dose: 2 mg Hydroxyzine HCl (Atarax) 25 mg PO TID [facility]; Protocol Stop: 01/28/18 13:59 Last Admin: 11/30/17 09:58 Dose: 25 mg Dextrose/Sodium Chloride (D5-0.45ns) 1,000 mls @ 75 mls/hr IV .[id number] [facility] Stop: 01/28/18 08:29 Last Admin: 11/29/17 13:11 Dose: 75 mls/hr Lactulose (Cephulac) 60 gm PO QID [facility] Stop: 01/28/18 12:59 Last Admin: 11/30/17 09:57 Dose: 60 gm Levocarnitine (Carnitor) 330 mg PO BID [facility] Stop: 01/28/18 16:59 Last Admin: 11/29/17 17:20 Dose: 330 mg Spironolactone (Aldactone) 50 mg PO DAILY [facility] Stop: 01/29/18 09:59 Trazodone HCl (Desyrel) 50 mg PO HS [facility]; Protocol Stop: 01/28/18 20:59 Last Admin: 11/29/17 21:43 Dose: 50 mg Triamcinolone Acetonide (Kenalog 0.1%) 1 appl TP QID [facility] Stop: 01/28/18 12:59 Last Admin: 11/29/17 22:02 Dose: 1 appl Vitamin D (Vitamin D3) 2,000 iu PO DAILY [facility] Stop: 01/28/18 09:59 Last Admin: 11/30/17 09:59 Dose: 2,000 iu General: Alert HEENT: Atraumatic Neck: Supple Cardiovascular: Regular rate Abdomen: Bowel sounds, Soft, Tender, Distended, no Hepatomegaly, no Rebound, no Mass, no Guarding Skin: no Rash - Procedures Procedures: Procedures Procedure Code Date EXCISION OF DUODENUM, ENDO, DIAGN [id number] 06/06/17 EXCISION OF STOMACH, ENDO, DIAGN [id number] 06/06/17 EXCISION OF TRANSVERSE COLON, ENDO [id number] 06/06/17 Assessment/Plan - Plan Plan: [facility] Nutritional Asmnt/Malnutr-PDOC - Dietary Evaluation Malnutrition Findings (Please click <Entered> for more info): Nutritional Asmnt/Malnutrition Start: 11/29/17 17: 35 Text: Status: Complete Freq: Protocol: Document 11/29/17 17:35 LCHENG (Rec: 11/29/17 17:41 LCHENG [email or web address]) Nutritional Asmnt/Malnutrition Patient General Information Nutritional Screening High Risk Diagnosis abd apin, intractable pain, gastritis Pertinent Medical Hx/Surgical Hx hepatitis B, psychosis, thrombocytopeni, HTN, DM, asthma/COPD, PUD/GERD, depresion, schizophrenia, bipolar Subjective Information Pt seen in room having abd ultrasound, not appropirate for interview at this time. Current Diet Order/ Nutrition Support mech soft chopped, boost TID Pertinent Medications D5-0.45ns, iron, vit D3 Pertinent Labs 11/29 Na 134, BUN 5, Cr 0.6, Ca 7.7, glucose 91 Nutritional Hx/Data Height 1.83 m Height (Calculated Centimeters) 182.9 Current Weight (lbs) 90.718 kg Weight (Calculated Kilograms) 90.7 Weight (Calculated Grams) 29474.5 [place] Body Weight 178 Body Mass Index (BMI) 27.1 Weight Status Overweight GI Symptoms GI Symptoms None Last BM not indicated Difficult in: None Skin Integrity/Comment: bruise to right and left upper arm Estimated Nutritional Goals BEE in Kcals: Using Current wt Calories/Kcals/Kg 23-27 Kcals Calculated 4168-5534 Protein: Using Current wt Protein g/k.8-1 Protein Calculated 72-91 Fluid: ml 2093-2457ml (1ml/kcal) Nutritional Problem No current Nutrition Prob Problem N/A Intervention/Recommendation Comments 1. Continue with current diet with supplements as ordered. 2. Monitor PO intake, wt, labs and skin integrity 3. F/U as high risk in 2-3 days, 12/01-12/02 Expected Outcomes/Goals Expected Outcomes/Goals 1. PO intake to meet at least 75% of nutritional needs. 2. Wt stability, skin to remain intact, labs to approach WNL.
--- NOTE | 2017-11-30 15:31 | Pathology Report ---
[id number] Collection date: 11/29/2017 Surgeon: Dr. Alyse Painting Specimen Description: Paracentesis fluid for cytology Gross Description: Received in a large glass container is approximately 1100 ml of watery yellowish fluid. A passenger representative portion is submitted for cytology processing. Microscopic Description: Examination of two cytospins and one cell block shows inflammatory cells consisting of neutrophils and lymphocytes, admixed with mesothelial cells. There is no evidence for atypia. Diagnosis: No cytologic evidence for malignancy, paracentesis fluid cytology. [facility]# [id number] MTDD
--- NOTE | 2017-11-30 15:33 | General Progress Note ---
Subjective - Review of Systems Service Date: 11/30/17 Subjective: abd pain Objective - Results Result Diagrams: 11/30/17 06:15 11/29/17 06:06 Recent Labs: Laboratory Last Values WBC 2.8 Th/cmm (4.8-10.8) L 11/30/17 06:15 RBC 3.08 Mil/cmm (3.80-5.80) L 11/30/17 06:15 Hgb 8.9 gm/dL (12-16) L 11/30/17 06:15 Hct 27.4 % (41.0-60) L 11/30/17 06:15 MCV 88.9 fl (80-99) 11/30/17 06:15 MCH 28.9 pg (27.0-31.0) 11/30/17 06:15 MCHC Differential 32.6 pg (28.0-36.0) 11/30/17 06:15 RDW 16.5 % (11.5-20.0) 11/30/17 06:15 Plt Count 39 Th/cmm (150-400) L 11/30/17 06:15 MPV 9.0 fl 11/30/17 06:15 Neutrophils % 32.8 % (40.0-80.0) L 11/30/17 06:15 Band Neutrophils % 0 % (0-10) 11/28/17 17:33 Lymphocytes % 50.9 % (20.0-50.0) H 11/30/17 06:15 Monocytes % 8.1 % (2.0-10.0) 11/30/17 06:15 Eosinophils % 6.8 % (0.0-5.0) H 11/30/17 06:15 Basophils % 1.4 % (0.0-2.0) 11/30/17 06:15 Neutrophils (Manual) 54 % (40-80) 11/28/17 17:33 Lymphocytes 35 % (20-50) 11/28/17 17:33 Monocytes 8 % (2-10) 11/28/17 17:33 Eosinophils 2 % (0-5) 11/28/17 17:33 Basophils 1 % (0-3) 11/28/17 17:33 Platelet Estimate DECREASED PLATELETS (NORMAL) 11/28/17 17:33 PT 18.5 SECONDS (9.5-11.5) H 11/30/17 06:15 INR 1.73 (0.5-1.4) H 11/30/17 06:15 PTT (Actin FS) 39.0 SECONDS (26.0-38.0) H 11/30/17 06:15 Sodium 134 mEq/L (136-145) L 11/29/17 06:06 Potassium 3.7 mEq/L (3.5-5.1) 11/29/17 06:06 Chloride 107 mEq/L (98-107) 11/29/17 06:06 Carbon Dioxide 24.1 mEq/L (21.0-31.0) 11/29/17 06:06 Anion Gap 6.6 (7.0-16.0) L 11/29/17 06:06 BUN 5 mg/dL (7-25) L 11/29/17 06:06 Creatinine 0.6 mg/dL (0.7-1.3) L 11/29/17 06:06 Est GFR ( Amer) > 60.0 ml/min (>90) 11/29/17 06:06 Est GFR (Non-Af Amer) > 60.0 ml/min 11/29/17 06:06 BUN/Creatinine Ratio 8.3 11/29/17 06:06 Glucose 91 mg/dL (70-105) 11/29/17 06:06 Whole Bld Lactic Acid 1.16 mmol/L (0.60-1.99) 11/28/17 17:33 Calcium 7.7 mg/dL (8.6-10.3) L 11/29/17 06:06 Total Bilirubin 0.9 mg/dL (0.3-1.0) 11/29/17 06:06 AST 22 U/L (13-39) 11/29/17 06:06 ALT 9 U/L (7-52) 11/29/17 06:06 Alkaline Phosphatase 45 U/L (34-104) 11/29/17 06:06 Creatine Kinase 43 U/L (30-223) 11/28/17 17:33 Troponin I 0.02 ng/mL (0.01-0.05) 11/28/17 17:33 B-Natriuretic Peptide 73.8 pg/mL (5.0-100.0) 11/28/17 17:33 Total Protein 5.0 gm/dL (6.0-8.3) L 11/29/17 06:06 Albumin 1.9 gm/dL (4.2-5.5) L 11/29/17 06:06 Globulin 3.1 gm/dL 11/29/17 06:06 Albumin/Globulin Ratio 0.6 (1.0-1.8) L 11/29/17 06:06 Triglycerides 63 mg/dL (<150) 11/29/17 06:06 Cholesterol 76 mg/dL (<200) 11/29/17 06:06 LDL Cholesterol Direct 45 mg/dL (75-193) L 11/29/17 06:06 HDL Cholesterol 11 mg/dL (23-92) L 11/29/17 06:06 Amylase 13 U/L (29-103) L 11/29/17 06:06 Lipase 8 U/L (11-82) L 11/29/17 06:06 Urine Source CLEAN C 11/29/17 20:55 Urine Color YELLOW 11/29/17 20:55 Urine Clarity SLIGHTLY HAZY (CLEAR) 11/29/17 20:55 Urine pH 6.5 (4.6 - 8.0) 11/29/17 20:55 Ur Specific [place] 1.025 (1.005-1.030) 11/29/17 20:55 Urine Protein NEGATIVE mg/dL (NEGATIVE) 11/29/17 20:55 Urine Glucose (UA) NEGATIVE mg/dL (NEGATIVE) 11/29/17 20:55 Urine Ketones TRACE mg/dL (NEGATIVE) 11/29/17 20:55 Urine Blood TRACE (NEGATIVE) 11/29/17 20:55 Urine Nitrate NEGATIVE (NEGATIVE) 11/29/17 20:55 Urine Bilirubin NEGATIVE (NEGATIVE) 11/29/17 20:55 Urine Urobilinogen 0.2 E.U./dL (0.2 - 1.0) 11/29/17 20:55 Ur Leukocyte Esterase NEGATIVE (NEGATIVE) 11/29/17 20:55 Urine RBC 5-10 /hpf (0-5) H 11/29/17 20:55 Urine WBC 0-2 /hpf (0-5) 11/29/17 20:55 Ur Epithelial Cells OCCASIONAL /lpf (FEW) 11/29/17 20:55 Urine Bacteria NONE SEEN /hpf (NONE SEEN) 11/29/17 20:55 Urine Mucus MODERATE /lpf (FEW) 11/29/17 20:55 Body Fluid Site ABDOMEN 11/29/17 13:40 Fluid Source PARACENTHESIS 11/29/17 13:40 Fluid Color PALE YELLOW 11/29/17 13:40 Fluid Appearance HAZY 11/29/17 13:40 Fluid WBC 12 /cumm 11/29/17 13:40 Fluid RBC 19 /cumm 11/29/17 13:40 Fluid Total Protein 1.4 g/dL 11/29/17 13:40 Fluid LDH 40 U/L 11/29/17 13:40 - Physical Exam Vitals and I&O: Vital Signs Temp 98.4 F 11/30/17 12:00 Pulse 74 11/30/17 12:15 Resp 17 11/30/17 12:00 BP 128/69 11/30/17 12:15 Pulse Ox 94 11/30/17 12:00 Intake & Output 11/29/17 11/30/17 11/30/17 18:59 06:59 18:59 Intake Total 1000 Output Total 4000 Balance -3000 Weight (lbs) 83.007 kg 85.729 kg Intake: Oral 1000 Output: Other 4000 Other: # Voids 1 # Bowel Movements 0 Stool Characteristics Soft Weight Source Bedscale Bedscale Active Medications: Current Medications Artificial Tears (Artificial Tears Ophth Soln) 1 drop EACH EYE BID [facility] Stop: 01/28/18 10:59 Last Admin: 11/30/17 09:00 Dose: 1 drop Artificial Tears (Artificial Tears Ophth Soln) 1 drop EACH EYE QID [facility] Stop: 01/29/18 12:59 Last Admin: 11/30/17 13:20 Dose: 1 drop Dicyclomine HCl (Bentyl) 20 mg PO BID [facility] Stop: 01/28/18 16:59 Last Admin: 11/30/17 09:58 Dose: 20 mg Diphenhydramine HCl (Benadryl) 25 mg PO TID [facility] Stop: 01/28/18 13:59 Last Admin: 11/30/17 13:18 Dose: 25 mg Ferrous Sulfate (Iron) 325 mg PO DAILY [facility] Stop: 01/28/18 09:59 Last Admin: 11/30/17 09:58 Dose: 325 mg Hydromorphone HCl (Dilaudid) 1 mg IVP Q4H PRN PRN Reason: Abdominal Pain Stop: 01/28/18 01:29 Last Admin: 11/30/17 13:16 Dose: 1 mg Hydromorphone HCl (Dilaudid) 2 mg PO Q4H PRN PRN Reason: Pain (Severe) Stop: 01/28/18 09:45 Last Admin: 11/30/17 10:18 Dose: 2 mg Hydroxyzine HCl (Atarax) 25 mg PO TID [facility]; Protocol Stop: 01/28/18 13:59 Last Admin: 11/30/17 13:17 Dose: 25 mg Dextrose/Sodium Chloride (D5-0.45ns) 1,000 mls @ 75 mls/hr IV .[id number] [facility] Stop: 01/28/18 08:29 Last Admin: 11/29/17 13:11 Dose: 75 mls/hr Lactulose (Cephulac) 60 gm PO QID [facility] Stop: 01/28/18 12:59 Last Admin: 11/30/17 09:57 Dose: 60 gm Levocarnitine (Carnitor) 330 mg PO BID [facility] Stop: 01/28/18 16:59 Last Admin: 11/30/17 09:00 Dose: 330 mg Phytonadione (Mephyton) 10 mg PO X1 ONE Stop: 11/30/17 15:21 Spironolactone (Aldactone) 50 mg PO DAILY [facility] Stop: 01/29/18 09:59 Last Admin: 11/30/17 12:15 Dose: 50 mg Trazodone HCl (Desyrel) 50 mg PO HS [facility]; Protocol Stop: 01/28/18 20:59 Last Admin: 11/29/17 21:43 Dose: 50 mg Triamcinolone Acetonide (Kenalog 0.1%) 1 appl TP QID [facility] Stop: 01/28/18 12:59 Last Admin: 11/30/17 13:20 Dose: 1 appl Vitamin D (Vitamin D3) 2,000 iu PO DAILY [facility] Stop: 01/28/18 09:59 Last Admin: 11/30/17 09:59 Dose: 2,000 iu General: Alert HEENT: Atraumatic Neck: Supple Cardiovascular: Regular rate Abdomen: Bowel sounds, Soft, Tender, Distended, no Hepatomegaly, no Rebound, no Mass, no Guarding Skin: no Rash - Procedures Procedures: Procedures Procedure Code Date EXCISION OF DUODENUM, ENDO, DIAGN [id number] 06/06/17 EXCISION OF STOMACH, ENDO, DIAGN [id number] 06/06/17 EXCISION OF TRANSVERSE COLON, ENDO [id number] 06/06/17 Assessment/Plan - Assessment Assessment: * hep c and cirrhosis * Vitamin k deficiency * thrombocytopenia worse * Abd. pain per GI vitamin k supplementation and monitoring coags and plt Nutritional Asmnt/Malnutr-PDOC - Dietary Evaluation Malnutrition Findings (Please click <Entered> for more info): Nutritional Asmnt/Malnutrition Start: 11/29/17 17: 35 Text: Status: Complete Freq: Protocol: Document 11/29/17 17:35 [email or web address] (Rec: 11/29/17 17:41 [email or web address]) Nutritional Asmnt/Malnutrition Patient General Information Nutritional Screening High Risk Diagnosis abd apin, intractable pain, gastritis Pertinent Medical Hx/Surgical Hx hepatitis B, psychosis, thrombocytopeni, HTN, DM, asthma/COPD, PUD/GERD, depresion, schizophrenia, bipolar Subjective Information Pt seen in room having abd ultrasound, not appropirate for interview at this time. Current Diet Order/ Nutrition Support mech soft chopped, boost TID Pertinent Medications D5-0.45ns, iron, vit D3 Pertinent Labs 11/29 Na 134, BUN 5, Cr 0.6, Ca 7.7, glucose 91 Nutritional Hx/Data Height 1.83 m Height (Calculated Centimeters) 182.9 Current Weight (lbs) 90.718 kg Weight (Calculated Kilograms) 90.7 Weight (Calculated Grams) 26903.5 [place] Body Weight 178 Body Mass Index (BMI) 27.1 Weight Status Overweight GI Symptoms GI Symptoms None Last BM not indicated Difficult in: None Skin Integrity/Comment: bruise to right and left upper arm Estimated Nutritional Goals BEE in Kcals: Using Current wt Calories/Kcals/Kg 23-27 Kcals Calculated 9632-7669 Protein: Using Current wt Protein g/k.8-1 Protein Calculated 72-91 Fluid: ml 3-2457ml (1ml/kcal) Nutritional Problem No current Nutrition Prob Problem N/A Intervention/Recommendation Comments 1. Continue with current diet with supplements as ordered. 2. Monitor PO intake, wt, labs and skin integrity 3. F/U as high risk in 2-3 days, 12/01-12/02 Expected Outcomes/Goals Expected Outcomes/Goals 1. PO intake to meet at least 75% of nutritional needs. 2. Wt stability, skin to remain intact, labs to approach WNL.
[2017-11-30] MEDS ORDERED: Phytonadione **Oral Compound** 10mg/10mL Soln PO ONE (16:00)
[2017-11-30] MEDS: D5-0.45NS 1,000 ML IV SCH (21:26)
[2017-12-01] MEDS: HYDROmorphone 2 mg/mL 1mL Vial IVP PRN ×3 (03:58→21:08)
[2017-12-01 06:40] LABS: % BASOPHILS 0.5 % (0.0-2.0); % EOSINOPHILS 6.6 % (0.0-5.0); % LYMPHOCYTES 38.3 % (20.0-50.0); % MONOCYTES 11.2 % (2.0-10.0); % NEUTROPHILS 43.4 % (40.0-80.0); EOSINOPHILE ABSOLUTE 0.2 Th/cmm (0.1-0.4); HEMOGLOBIN 8.8 gm/dL (12-16); LYMPHOCYTE ABSOLUTE 1.1 Th/cmm (1.5-3.0); MEAN CELL VOLUME 88.2 fl (80-99); MEAN PLATELET VOLUME 7.9 fl; MONOCYTE ABSOLUTE 0.3 Th/cmm (0.3-1.0); NEUTROPHILE ABSOLUTE 1.4 Th/cmm (1.8-8.0); PLATELET COUNT 41 Th/cmm (150-400); RED BLOOD COUNT 2.95 Mil/cmm (3.80-5.80)
[2017-12-01 07:03] LABS: INR 1.42 (0.5-1.4); PROTHROMBIN TIME (TEST) 15.1 SECONDS (9.5-11.5)
[2017-12-01] MEDS: Lactulose 10 Gm/15 mL 30mL UDC PO SCH ×4 (09:00→21:03)
[2017-12-01] MEDS: Polyvinyl Alcohol Ophth Soln 15 mL Bottle EACH EYE SCH ×5 (09:00→22:06)
[2017-12-01] MEDS: Triamcinolone Acetonide 0.1% Cream 15 gm TP SCH ×4 (09:09→22:06)
[2017-12-01] MEDS: Dicyclomine 10 mg Cap PO SCH ×2 (09:10→17:50)
[2017-12-01] MEDS: Ferrous Sulfate 325 MG TAB PO SCH (09:12)
[2017-12-01] MEDS: Vitamin D3 2,000 IU SGL PO SCH (09:12)
[2017-12-01 13:31] LABS: BF MONOCYTES 35 %
[2017-12-01 13:32] LABS: BF MESOTELIAL CELLS MODERATE
--- NOTE | 2017-12-01 15:53 | General Progress Note ---
Subjective - Review of Systems Service Date: 12/01/17 Subjective: sleepy Objective - Results Result Diagrams: 12/01/17 05:25 11/29/17 06:06 Recent Labs: Laboratory Last Values WBC 3.0 Th/cmm (4.8-10.8) L 12/01/17 05:25 RBC 2.95 Mil/cmm (3.80-5.80) L 12/01/17 05:25 Hgb 8.8 gm/dL (12-16) L 12/01/17 05:25 Hct 26.0 % (41.0-60) L 12/01/17 05:25 MCV 88.2 fl (80-99) 12/01/17 05:25 MCH 30.0 pg (27.0-31.0) 12/01/17 05:25 MCHC Differential 34.0 pg (28.0-36.0) 12/01/17 05:25 RDW 16.0 % (11.5-20.0) 12/01/17 05:25 Plt Count 41 Th/cmm (150-400) L 12/01/17 05:25 MPV 7.9 fl 12/01/17 05:25 Neutrophils % 43.4 % (40.0-80.0) 12/01/17 05:25 Band Neutrophils % 0 % (0-10) 11/28/17 17:33 Lymphocytes % 38.3 % (20.0-50.0) 12/01/17 05:25 Monocytes % 11.2 % (2.0-10.0) H 12/01/17 05:25 Eosinophils % 6.6 % (0.0-5.0) H 12/01/17 05:25 Basophils % 0.5 % (0.0-2.0) 12/01/17 05:25 Neutrophils (Manual) 54 % (40-80) 11/28/17 17:33 Lymphocytes 35 % (20-50) 11/28/17 17:33 Monocytes 8 % (2-10) 11/28/17 17:33 Eosinophils 2 % (0-5) 11/28/17 17:33 Basophils 1 % (0-3) 11/28/17 17:33 Platelet Estimate DECREASED PLATELETS (NORMAL) 11/28/17 17:33 PT 15.1 SECONDS (9.5-11.5) H 12/01/17 05:25 INR 1.42 (0.5-1.4) H 12/01/17 05:25 PTT (Actin FS) 34.1 SECONDS (26.0-38.0) 12/01/17 05:25 Sodium 134 mEq/L (136-145) L 11/29/17 06:06 Potassium 3.7 mEq/L (3.5-5.1) 11/29/17 06:06 Chloride 107 mEq/L (98-107) 11/29/17 06:06 Carbon Dioxide 24.1 mEq/L (21.0-31.0) 11/29/17 06:06 Anion Gap 6.6 (7.0-16.0) L 11/29/17 06:06 BUN 5 mg/dL (7-25) L 11/29/17 06:06 Creatinine 0.6 mg/dL (0.7-1.3) L 11/29/17 06:06 Est GFR ( Amer) > 60.0 ml/min (>90) 11/29/17 06:06 Est GFR (Non-Af Amer) > 60.0 ml/min 11/29/17 06:06 BUN/Creatinine Ratio 8.3 11/29/17 06:06 Glucose 91 mg/dL (70-105) 11/29/17 06:06 Whole Bld Lactic Acid 1.16 mmol/L (0.60-1.99) 11/28/17 17:33 Calcium 7.7 mg/dL (8.6-10.3) L 11/29/17 06:06 Total Bilirubin 0.9 mg/dL (0.3-1.0) 11/29/17 06:06 AST 22 U/L (13-39) 11/29/17 06:06 ALT 9 U/L (7-52) 11/29/17 06:06 Alkaline Phosphatase 45 U/L (34-104) 11/29/17 06:06 Creatine Kinase 43 U/L (30-223) 11/28/17 17:33 Troponin I 0.02 ng/mL (0.01-0.05) 11/28/17 17:33 B-Natriuretic Peptide 73.8 pg/mL (5.0-100.0) 11/28/17 17:33 Total Protein 5.0 gm/dL (6.0-8.3) L 11/29/17 06:06 Albumin 1.9 gm/dL (4.2-5.5) L 11/29/17 06:06 Globulin 3.1 gm/dL 11/29/17 06:06 Albumin/Globulin Ratio 0.6 (1.0-1.8) L 11/29/17 06:06 Triglycerides 63 mg/dL (<150) 11/29/17 06:06 Cholesterol 76 mg/dL (<200) 11/29/17 06:06 LDL Cholesterol Direct 45 mg/dL (75-193) L 11/29/17 06:06 HDL Cholesterol 11 mg/dL (23-92) L 11/29/17 06:06 Amylase 13 U/L (29-103) L 11/29/17 06:06 Lipase 8 U/L (11-82) L 11/29/17 06:06 Urine Source CLEAN C 11/29/17 20:55 Urine Color YELLOW 11/29/17 20:55 Urine Clarity SLIGHTLY HAZY (CLEAR) 11/29/17 20:55 Urine pH 6.5 (4.6 - 8.0) 11/29/17 20:55 Ur Specific [place] 1.025 (1.005-1.030) 11/29/17 20:55 Urine Protein NEGATIVE mg/dL (NEGATIVE) 11/29/17 20:55 Urine Glucose (UA) NEGATIVE mg/dL (NEGATIVE) 11/29/17 20:55 Urine Ketones TRACE mg/dL (NEGATIVE) 11/29/17 20:55 Urine Blood TRACE (NEGATIVE) 11/29/17 20:55 Urine Nitrate NEGATIVE (NEGATIVE) 11/29/17 20:55 Urine Bilirubin NEGATIVE (NEGATIVE) 11/29/17 20:55 Urine Urobilinogen 0.2 E.U./dL (0.2 - 1.0) 11/29/17 20:55 Ur Leukocyte Esterase NEGATIVE (NEGATIVE) 11/29/17 20:55 Urine RBC 5-10 /hpf (0-5) H 11/29/17 20:55 Urine WBC 0-2 /hpf (0-5) 11/29/17 20:55 Ur Epithelial Cells OCCASIONAL /lpf (FEW) 11/29/17 20:55 Urine Bacteria NONE SEEN /hpf (NONE SEEN) 11/29/17 20:55 Urine Mucus MODERATE /lpf (FEW) 11/29/17 20:55 Body Fluid Site ABDOMEN 11/29/17 13:40 Fluid Source PARACENTHESIS 11/29/17 13:40 Fluid Color PALE YELLOW 11/29/17 13:40 Fluid Appearance HAZY 11/29/17 13:40 Fluid WBC 12 /cumm 11/29/17 13:40 Fluid RBC 19 /cumm 11/29/17 13:40 Fluid Neutrophils 2 % 11/29/17 13:40 Fluid Lymphocytes 63 % 11/29/17 13:40 Fluid Monocytes 35 % 11/29/17 13:40 Fld Mesothelial Cells MODERATE 11/29/17 13:40 Body Fluid Clot 11/29/17 13:40 Fluid Total Protein 1.4 g/dL 11/29/17 13:40 Fluid LDH 40 U/L 11/29/17 13:40 - Physical Exam Vitals and I&O: Vital Signs Temp 98 F 12/01/17 15:27 Pulse 75 12/01/17 15:27 Resp 18 12/01/17 15:27 BP 129/84 12/01/17 15:27 Pulse Ox 96 12/01/17 15:27 Intake & Output 11/30/17 12/01/17 12/01/17 18:59 06:59 18:59 Intake Total 200 1360 Output Total 250 Balance -50 1360 Weight (lbs) 85.729 kg 86.001 kg Intake: Intake, IV Amount 1000 D5-0.45NS 1,000 ml @ 75 1000 mls/hr IV .[id number] [facility] Rx #:[id number] Oral 200 300 Other 60 Output: Urine 250 Other: # Voids 3 # Bowel Movements 2 Stool Characteristics Soft Soft Weight Source Bedscale Bedscale Active Medications: Current Medications Artificial Tears (Artificial Tears Ophth Soln) 1 drop EACH EYE QID [facility] Stop: 01/29/18 12:59 Last Admin: 12/01/17 13:30 Dose: 1 drop Dicyclomine HCl (Bentyl) 20 mg PO BID [facility] Stop: 01/28/18 16:59 Last Admin: 12/01/17 09:10 Dose: 20 mg Diphenhydramine HCl (Benadryl) 25 mg PO TID [facility] Stop: 01/28/18 13:59 Last Admin: 12/01/17 13:55 Dose: 25 mg Ferrous Sulfate (Iron) 325 mg PO DAILY [facility] Stop: 01/28/18 09:59 Last Admin: 12/01/17 09:12 Dose: 325 mg Hydromorphone HCl (Dilaudid) 1 mg IVP Q4H PRN PRN Reason: Abdominal Pain Stop: 01/28/18 01:29 Last Admin: 12/01/17 12:21 Dose: 1 mg Hydromorphone HCl (Dilaudid) 2 mg PO Q4H PRN PRN Reason: Pain (Severe) Stop: 01/28/18 09:45 Last Admin: 12/01/17 14:10 Dose: 2 mg Hydroxyzine HCl (Atarax) 25 mg PO TID [facility]; Protocol Stop: 01/28/18 13:59 Last Admin: 12/01/17 13:55 Dose: 25 mg Dextrose/Sodium Chloride (D5-0.45ns) 1,000 mls @ 75 mls/hr IV .[id number] [facility] Stop: 01/28/18 08:29 Last Admin: 11/30/17 21:26 Dose: 75 mls/hr Lactulose (Cephulac) 60 gm PO QID [facility] Stop: 01/28/18 12:59 Last Admin: 12/01/17 13:47 Dose: Not Given Levocarnitine (Carnitor) 330 mg PO BID [facility] Stop: 01/28/18 16:59 Last Admin: 12/01/17 09:09 Dose: 330 mg Spironolactone (Aldactone) 50 mg PO DAILY [facility] Stop: 01/29/18 09:59 Last Admin: 12/01/17 09:11 Dose: 50 mg Trazodone HCl (Desyrel) 50 mg PO HS [facility]; Protocol Stop: 01/28/18 20:59 Last Admin: 11/30/17 21:25 Dose: 50 mg Triamcinolone Acetonide (Kenalog 0.1%) 1 appl TP QID [facility] Stop: 01/28/18 12:59 Last Admin: 12/01/17 12:22 Dose: 1 appl Vitamin D (Vitamin D3) 2,000 iu PO DAILY [facility] Stop: 01/28/18 09:59 Last Admin: 12/01/17 09:12 Dose: 2,000 iu General: Alert HEENT: Atraumatic Neck: Supple Cardiovascular: Regular rate Abdomen: Bowel sounds, Soft, Tender, Distended, no Hepatomegaly, no Rebound, no Mass, no Guarding Skin: no Rash - Procedures Procedures: Procedures Procedure Code Date EXCISION OF DUODENUM, ENDO, DIAGN [id number] 06/06/17 EXCISION OF STOMACH, ENDO, DIAGN 0OH42AM 06/06/17 EXCISION OF TRANSVERSE COLON, ENDO [id number] 06/06/17 Assessment/Plan - Assessment Assessment: * hep c and cirrhosis * Vitamin k deficiency * thrombocytopenia worse * Abd. pain per GI vitamin k supplementation and monitoring coags and plt 12/01: coags better on vitamin k. plt and hgb stable Nutritional Asmnt/Malnutr-PDOC - Dietary Evaluation Malnutrition Findings (Please click <Entered> for more info): Nutritional Asmnt/Malnutrition Start: 11/29/17 17: 35 Text: Status: Complete Freq: Protocol: Document 11/29/17 17:35 LCHENG (Rec: 11/29/17 17:41 [email or web address] [place] [id number]) Nutritional Asmnt/Malnutrition Patient General Information Nutritional Screening High Risk Diagnosis abd apin, intractable pain, gastritis Pertinent Medical Hx/Surgical Hx hepatitis B, psychosis, thrombocytopeni, HTN, DM, asthma/COPD, PUD/GERD, depresion, schizophrenia, bipolar Subjective Information Pt seen in room having abd ultrasound, not appropirate for interview at this time. Current Diet Order/ Nutrition Support mech soft chopped, boost TID Pertinent Medications D5-0.45ns, iron, vit D3 Pertinent Labs 11/29 Na 134, BUN 5, Cr 0.6, Ca 7.7, glucose 91 Nutritional Hx/Data Height 1.83 m Height (Calculated Centimeters) 182.9 Current Weight (lbs) 90.718 kg Weight (Calculated Kilograms) 90.7 Weight (Calculated Grams) 54190.5 [place] Body Weight 178 Body Mass Index (BMI) 27.1 Weight Status Overweight GI Symptoms GI Symptoms None Last BM not indicated Difficult in: None Skin Integrity/Comment: bruise to right and left upper arm Estimated Nutritional Goals BEE in Kcals: Using Current wt Calories/Kcals/Kg 23-27 Kcals Calculated 8504-3238 Protein: Using Current wt Protein g/k.8-1 Protein Calculated 72-91 Fluid: ml 2093-2457ml (1ml/kcal) Nutritional Problem No current Nutrition Prob Problem N/A Intervention/Recommendation Comments 1. Continue with current diet with supplements as ordered. 2. Monitor PO intake, wt, labs and skin integrity 3. F/U as high risk in 2-3 days, 12/01-12/02 Expected Outcomes/Goals Expected Outcomes/Goals 1. PO intake to meet at least 75% of nutritional needs. 2. Wt stability, skin to remain intact, labs to approach WNL.
[2017-12-01] MEDS: D5-0.45NS 1,000 ML IV SCH (19:23)
[2017-12-02] MEDS: HYDROmorphone 2 mg/mL 1mL Vial IVP PRN ×6 (01:01→21:18)
--- NOTE | 2017-12-02 01:57 | Infectious Disease Prog Note ---
Infectious Disease Subjective - Review of Systems Service Date: 12/01/17 Subjective: Patient is to complain nausea vomiting. c/o abdominal pain and taking pain medication. Infectious Disease Objective - Results Result Diagrams: 12/01/17 05:25 11/29/17 06:06 Recent Labs: Laboratory Last Values WBC 3.0 Th/cmm (4.8-10.8) L 12/01/17 05:25 RBC 2.95 Mil/cmm (3.80-5.80) L 12/01/17 05:25 Hgb 8.8 gm/dL (12-16) L 12/01/17 05:25 Hct 26.0 % (41.0-60) L 12/01/17 05:25 MCV 88.2 fl (80-99) 12/01/17 05:25 MCH 30.0 pg (27.0-31.0) 12/01/17 05:25 MCHC Differential 34.0 pg (28.0-36.0) 12/01/17 05:25 RDW 16.0 % (11.5-20.0) 12/01/17 05:25 Plt Count 41 Th/cmm (150-400) L 12/01/17 05:25 MPV 7.9 fl 12/01/17 05:25 Neutrophils % 43.4 % (40.0-80.0) 12/01/17 05:25 Band Neutrophils % 0 % (0-10) 11/28/17 17:33 Lymphocytes % 38.3 % (20.0-50.0) 12/01/17 05:25 Monocytes % 11.2 % (2.0-10.0) H 12/01/17 05:25 Eosinophils % 6.6 % (0.0-5.0) H 12/01/17 05:25 Basophils % 0.5 % (0.0-2.0) 12/01/17 05:25 Neutrophils (Manual) 54 % (40-80) 11/28/17 17:33 Lymphocytes 35 % (20-50) 11/28/17 17:33 Monocytes 8 % (2-10) 11/28/17 17:33 Eosinophils 2 % (0-5) 11/28/17 17:33 Basophils 1 % (0-3) 11/28/17 17:33 Platelet Estimate DECREASED PLATELETS (NORMAL) 11/28/17 17:33 PT 15.1 SECONDS (9.5-11.5) H 12/01/17 05:25 INR 1.42 (0.5-1.4) H 12/01/17 05:25 PTT (Actin FS) 34.1 SECONDS (26.0-38.0) 12/01/17 05:25 Sodium 134 mEq/L (136-145) L 11/29/17 06:06 Potassium 3.7 mEq/L (3.5-5.1) 11/29/17 06:06 Chloride 107 mEq/L (98-107) 11/29/17 06:06 Carbon Dioxide 24.1 mEq/L (21.0-31.0) 11/29/17 06:06 Anion Gap 6.6 (7.0-16.0) L 11/29/17 06:06 BUN 5 mg/dL (7-25) L 11/29/17 06:06 Creatinine 0.6 mg/dL (0.7-1.3) L 11/29/17 06:06 Est GFR ( Amer) > 60.0 ml/min (>90) 11/29/17 06:06 Est GFR (Non-Af Amer) > 60.0 ml/min 11/29/17 06:06 BUN/Creatinine Ratio 8.3 11/29/17 06:06 Glucose 91 mg/dL (70-105) 11/29/17 06:06 Whole Bld Lactic Acid 1.16 mmol/L (0.60-1.99) 11/28/17 17:33 Calcium 7.7 mg/dL (8.6-10.3) L 11/29/17 06:06 Total Bilirubin 0.9 mg/dL (0.3-1.0) 11/29/17 06:06 AST 22 U/L (13-39) 11/29/17 06:06 ALT 9 U/L (7-52) 11/29/17 06:06 Alkaline Phosphatase 45 U/L (34-104) 11/29/17 06:06 Creatine Kinase 43 U/L (30-223) 11/28/17 17:33 Troponin I 0.02 ng/mL (0.01-0.05) 11/28/17 17:33 B-Natriuretic Peptide 73.8 pg/mL (5.0-100.0) 11/28/17 17:33 Total Protein 5.0 gm/dL (6.0-8.3) L 11/29/17 06:06 Albumin 1.9 gm/dL (4.2-5.5) L 11/29/17 06:06 Globulin 3.1 gm/dL 11/29/17 06:06 Albumin/Globulin Ratio 0.6 (1.0-1.8) L 11/29/17 06:06 Triglycerides 63 mg/dL (<150) 11/29/17 06:06 Cholesterol 76 mg/dL (<200) 11/29/17 06:06 LDL Cholesterol Direct 45 mg/dL (75-193) L 11/29/17 06:06 HDL Cholesterol 11 mg/dL (23-92) L 11/29/17 06:06 Amylase 13 U/L (29-103) L 11/29/17 06:06 Lipase 8 U/L (11-82) L 11/29/17 06:06 Urine Source CLEAN C 11/29/17 20:55 Urine Color YELLOW 11/29/17 20:55 Urine Clarity SLIGHTLY HAZY (CLEAR) 11/29/17 20:55 Urine pH 6.5 (4.6 - 8.0) 11/29/17 20:55 Ur Specific [place] 1.025 (1.005-1.030) 11/29/17 20:55 Urine Protein NEGATIVE mg/dL (NEGATIVE) 11/29/17 20:55 Urine Glucose (UA) NEGATIVE mg/dL (NEGATIVE) 11/29/17 20:55 Urine Ketones TRACE mg/dL (NEGATIVE) 11/29/17 20:55 Urine Blood TRACE (NEGATIVE) 11/29/17 20:55 Urine Nitrate NEGATIVE (NEGATIVE) 11/29/17 20:55 Urine Bilirubin NEGATIVE (NEGATIVE) 11/29/17 20:55 Urine Urobilinogen 0.2 E.U./dL (0.2 - 1.0) 11/29/17 20:55 Ur Leukocyte Esterase NEGATIVE (NEGATIVE) 11/29/17 20:55 Urine RBC 5-10 /hpf (0-5) H 11/29/17 20:55 Urine WBC 0-2 /hpf (0-5) 11/29/17 20:55 Ur Epithelial Cells OCCASIONAL /lpf (FEW) 11/29/17 20:55 Urine Bacteria NONE SEEN /hpf (NONE SEEN) 11/29/17 20:55 Urine Mucus MODERATE /lpf (FEW) 11/29/17 20:55 Body Fluid Site ABDOMEN 11/29/17 13:40 Fluid Source PARACENTHESIS 11/29/17 13:40 Fluid Color PALE YELLOW 11/29/17 13:40 Fluid Appearance HAZY 11/29/17 13:40 Fluid WBC 12 /cumm 11/29/17 13:40 Fluid RBC 19 /cumm 11/29/17 13:40 Fluid Neutrophils 2 % 11/29/17 13:40 Fluid Lymphocytes 63 % 11/29/17 13:40 Fluid Monocytes 35 % 11/29/17 13:40 Fld Mesothelial Cells MODERATE 11/29/17 13:40 Body Fluid Clot 11/29/17 13:40 Fluid Total Protein 1.4 g/dL 11/29/17 13:40 Fluid LDH 40 U/L 11/29/17 13:40 - Physical Exam Vitals and I&O: Vital Signs Temp 97.6 F 12/02/17 00:00 Pulse 80 12/02/17 00:00 Resp 17 12/02/17 00:00 BP 126/79 12/02/17 00:00 Pulse Ox 98 12/02/17 00:00 Intake & Output 12/01/17 12/01/17 12/02/17 06:59 18:59 06:59 Intake Total 1360 1000 Balance 1360 1000 Weight (lbs) 86.001 kg Intake: Intake, IV Amount 1000 1000 D5-0.45NS 1,000 ml @ 75 1000 1000 mls/hr IV .[id number] [facility] Rx #:[id number] Oral 300 Other 60 Other: # Voids 3 # Bowel Movements 2 Stool Characteristics Soft Soft Soft Weight Source Bedscale Active Medications: Current Medications Artificial Tears (Artificial Tears Ophth Soln) 1 drop EACH EYE QID [facility] Stop: 01/29/18 12:59 Last Admin: 12/01/17 22:06 Dose: 1 drop Dicyclomine HCl (Bentyl) 20 mg PO BID [facility] Stop: 01/28/18 16:59 Last Admin: 12/01/17 17:50 Dose: 20 mg Diphenhydramine HCl (Benadryl) 25 mg PO TID [facility] Stop: 01/28/18 13:59 Last Admin: 12/01/17 21:03 Dose: 25 mg Ferrous Sulfate (Iron) 325 mg PO DAILY [facility] Stop: 01/28/18 09:59 Last Admin: 12/01/17 09:12 Dose: 325 mg Hydromorphone HCl (Dilaudid) 1 mg IVP Q4H PRN PRN Reason: Abdominal Pain Stop: 01/28/18 01:29 Last Admin: 12/02/17 01:01 Dose: 1 mg Hydromorphone HCl (Dilaudid) 2 mg PO Q4H PRN PRN Reason: Pain (Severe) Stop: 01/28/18 09:45 Last Admin: 12/01/17 19:05 Dose: 2 mg Hydroxyzine HCl (Atarax) 25 mg PO TID [facility]; Protocol Stop: 01/28/18 13:59 Last Admin: 12/01/17 21:17 Dose: 25 mg Dextrose/Sodium Chloride (D5-0.45ns) 1,000 mls @ 75 mls/hr IV .[id number] [facility] Stop: 01/28/18 08:29 Last Admin: 12/01/17 19:23 Dose: 75 mls/hr Lactulose (Cephulac) 60 gm PO QID [facility] Stop: 01/28/18 12:59 Last Admin: 12/01/17 21:03 Dose: 60 gm Levocarnitine (Carnitor) 330 mg PO BID [facility] Stop: 01/28/18 16:59 Last Admin: 12/01/17 17:50 Dose: 330 mg Spironolactone (Aldactone) 50 mg PO DAILY [facility] Stop: 01/29/18 09:59 Last Admin: 12/01/17 09:11 Dose: 50 mg Trazodone HCl (Desyrel) 50 mg PO HS [facility]; Protocol Stop: 01/28/18 20:59 Last Admin: 12/01/17 21:03 Dose: 50 mg Triamcinolone Acetonide (Kenalog 0.1%) 1 appl TP QID [facility] Stop: 01/28/18 12:59 Last Admin: 12/01/17 22:06 Dose: 1 appl Vitamin D (Vitamin D3) 2,000 iu PO DAILY [facility] Stop: 01/28/18 09:59 Last Admin: 12/01/17 09:12 Dose: 2,000 iu General: no acute distress, cachectic HEENT: atraumatic, normocephalic, PERRLA, EOMI Neck: supple, no thyromegaly Cardiovascular: S1S2, regular Lungs: clear to auscultation bilaterally, clear to percussion Abdomen: soft, no tender, no mass Extremities: no cyanosis, no clubbing, no edema Neurological: awake, alert, oriented Skin: intact - Procedures Procedures: Procedures Procedure Code Date EXCISION OF DUODENUM, ENDO, DIAGN [id number] 06/06/17 EXCISION OF STOMACH, ENDO, DIAGN [id number] 06/06/17 EXCISION OF TRANSVERSE COLON, ENDO [id number] 06/06/17 Infectious Disease Assmt/Plan - Assessment Assessment: 1. Pancytopenia secondary to liver disease. 2. History of ORIF related to me which is treated. 3. Cirrhosis. Treated 4. Nausea, vomting and abdominal pain 5. Hepatitis C. 6. Hypertension. 7. Chronic pain syndrome. 8. Asthma, chronic obstructive pulmonary disease. 9. Dyslipidemia. 10. Peptic ulcer disease, gastroesophageal reflux disease. 11. Dementia. 12. Neuropathy. 13. History of methicillin-resistant Staphylococcus aureus infection of the left hip. Left hip prosthesis treated, no signs and symptoms of infection at this time. 14. History of open reduction and internal fixation of the left hip. - Plan Plan: Continue same treatment. Nutritional Asmnt/Malnutr-PDOC - Dietary Evaluation Malnutrition Findings (Please click <Entered> for more info): Nutritional Asmnt/Malnutrition Start: 11/29/17 17: 35 Text: Status: Complete Freq: Protocol: Document 11/29/17 17:35 LCHENG (Rec[facility] 11/29/17 [email or web address] Nutritional Asmnt/Malnutrition Patient General Information Nutritional Screening High Risk Diagnosis abd apin, intractable pain, gastritis Pertinent Medical Hx/Surgical Hx hepatitis B, psychosis, thrombocytopeni, HTN, DM, asthma/COPD, PUD/GERD, depresion, schizophrenia, bipolar Subjective Information Pt seen in room having abd ultrasound, not appropirate for interview at this time. Current Diet Order/ Nutrition Support mech soft chopped, boost TID Pertinent Medications D5-0.45ns, iron, vit D3 Pertinent Labs 11/29 Na 134, BUN 5, Cr 0.6, Ca 7.7, glucose 91 Nutritional Hx/Data Height 1.83 m Height (Calculated Centimeters) 182.9 Current Weight (lbs) 90.718 kg Weight (Calculated Kilograms) 90.7 Weight (Calculated Grams) 65460.5 [place] Body Weight 178 Body Mass Index (BMI) 27.1 Weight Status Overweight GI Symptoms GI Symptoms None Last BM not indicated Difficult in: None Skin Integrity/Comment: bruise to right and left upper arm Estimated Nutritional Goals BEE in Kcals: Using Current wt Calories/Kcals/Kg 23-27 Kcals Calculated 5117-1011 Protein: Using Current wt Protein g/k.8-1 Protein Calculated 72-91 Fluid: ml 2093-2457ml (1ml/kcal) Nutritional Problem No current Nutrition Prob Problem N/A Intervention/Recommendation Comments 1. Continue with current diet with supplements as ordered. 2. Monitor PO intake, wt, labs and skin integrity 3. F/U as high risk in 2-3 days, 12/01-12/02 Expected Outcomes/Goals Expected Outcomes/Goals 1. PO intake to meet at least 75% of nutritional needs. 2. Wt stability, skin to remain intact, labs to approach WNL.
[2017-12-02 06:50] LABS: INR 1.3 (0.5-1.4); PROTHROMBIN TIME (TEST) 13.7 SECONDS (9.5-11.5)
[2017-12-02 07:07] LABS: % EOSINOPHILS 6.8 % (0.0-5.0); % LYMPHOCYTES 28.8 % (20.0-50.0); % MONOCYTES 9.9 % (2.0-10.0); % NEUTROPHILS 53.5 % (40.0-80.0); EOSINOPHILE ABSOLUTE 0.2 Th/cmm (0.1-0.4); HEMATOCRIT 30.8 % (41.0-60); HEMOGLOBIN 10.4 gm/dL (12-16); LYMPHOCYTE ABSOLUTE 0.9 Th/cmm (1.5-3.0); MEAN CELL VOLUME 88.4 fl (80-99); MEAN CORPUSCULAR HEMOGLOBIN 29.9 pg (27.0-31.0); MEAN CORPUSCULAR HGB CONC 33.8 pg (28.0-36.0); MEAN PLATELET VOLUME 8.1 fl; MONOCYTE ABSOLUTE 0.3 Th/cmm (0.3-1.0); NEUTROPHILE ABSOLUTE 1.6 Th/cmm (1.8-8.0); PLATELET COUNT 59 Th/cmm (150-400); RED BLOOD COUNT 3.48 Mil/cmm (3.80-5.80); RED CELL DISTRIBUTION WIDTH 15.8 % (11.5-20.0)
[2017-12-02] MEDS: Lactulose 10 Gm/15 mL 30mL UDC PO SCH ×4 (09:44→21:23)
[2017-12-02] MEDS: Dicyclomine 10 mg Cap PO SCH ×2 (09:44→16:22)
[2017-12-02] MEDS: Triamcinolone Acetonide 0.1% Cream 15 gm TP SCH ×4 (09:44→21:55)
[2017-12-02] MEDS: Vitamin D3 2,000 IU SGL PO SCH (09:44)
[2017-12-02] MEDS: Ferrous Sulfate 325 MG TAB PO SCH (09:44)
[2017-12-02] MEDS: Polyvinyl Alcohol Ophth Soln 15 mL Bottle EACH EYE SCH ×4 (09:44→21:26)
[2017-12-02] MEDS: D5-0.45NS 1,000 ML IV SCH (11:48)
--- NOTE | 2017-12-02 12:39 | General Progress Note ---
Subjective - Review of Systems Service Date: 12/02/17 Subjective: awake, agitated c/o abd pain Objective - Results Result Diagrams: 12/02/17 05:50 11/29/17 06:06 Recent Labs: Laboratory Last Values WBC 3.0 Th/cmm (4.8-10.8) L 12/02/17 05:50 RBC 3.48 Mil/cmm (3.80-5.80) L 12/02/17 05:50 Hgb 10.4 gm/dL (12-16) L 12/02/17 05:50 Hct 30.8 % (41.0-60) L 12/02/17 05:50 MCV 88.4 fl (80-99) 12/02/17 05:50 MCH 29.9 pg (27.0-31.0) 12/02/17 05:50 MCHC Differential 33.8 pg (28.0-36.0) 12/02/17 05:50 RDW 15.8 % (11.5-20.0) 12/02/17 05:50 Plt Count 59 Th/cmm (150-400) L 12/02/17 05:50 MPV 8.1 fl 12/02/17 05:50 Neutrophils % 53.5 % (40.0-80.0) 12/02/17 05:50 Band Neutrophils % 0 % (0-10) 11/28/17 17:33 Lymphocytes % 28.8 % (20.0-50.0) 12/02/17 05:50 Monocytes % 9.9 % (2.0-10.0) 12/02/17 05:50 Eosinophils % 6.8 % (0.0-5.0) H 12/02/17 05:50 Basophils % 1.0 % (0.0-2.0) 12/02/17 05:50 Neutrophils (Manual) 54 % (40-80) 11/28/17 17:33 Lymphocytes 35 % (20-50) 11/28/17 17:33 Monocytes 8 % (2-10) 11/28/17 17:33 Eosinophils 2 % (0-5) 11/28/17 17:33 Basophils 1 % (0-3) 11/28/17 17:33 Platelet Estimate DECREASED PLATELETS (NORMAL) 11/28/17 17:33 Smear Path Review 12/02/17 05:50 PT 13.7 SECONDS (9.5-11.5) H 12/02/17 05:50 INR 1.30 (0.5-1.4) 12/02/17 05:50 PTT (Actin FS) 34.1 SECONDS (26.0-38.0) 12/01/17 05:25 Sodium 134 mEq/L (136-145) L 11/29/17 06:06 Potassium 3.7 mEq/L (3.5-5.1) 11/29/17 06:06 Chloride 107 mEq/L (98-107) 11/29/17 06:06 Carbon Dioxide 24.1 mEq/L (21.0-31.0) 11/29/17 06:06 Anion Gap 6.6 (7.0-16.0) L 11/29/17 06:06 BUN 5 mg/dL (7-25) L 11/29/17 06:06 Creatinine 0.6 mg/dL (0.7-1.3) L 11/29/17 06:06 Est GFR ( Amer) > 60.0 ml/min (>90) 11/29/17 06:06 Est GFR (Non-Af Amer) > 60.0 ml/min 11/29/17 06:06 BUN/Creatinine Ratio 8.3 11/29/17 06:06 Glucose 91 mg/dL (70-105) 11/29/17 06:06 Whole Bld Lactic Acid 1.16 mmol/L (0.60-1.99) 11/28/17 17:33 Calcium 7.7 mg/dL (8.6-10.3) L 11/29/17 06:06 Total Bilirubin 0.9 mg/dL (0.3-1.0) 11/29/17 06:06 AST 22 U/L (13-39) 11/29/17 06:06 ALT 9 U/L (7-52) 11/29/17 06:06 Alkaline Phosphatase 45 U/L (34-104) 11/29/17 06:06 Creatine Kinase 43 U/L (30-223) 11/28/17 17:33 Troponin I 0.02 ng/mL (0.01-0.05) 11/28/17 17:33 B-Natriuretic Peptide 73.8 pg/mL (5.0-100.0) 11/28/17 17:33 Total Protein 5.0 gm/dL (6.0-8.3) L 11/29/17 06:06 Albumin 1.9 gm/dL (4.2-5.5) L 11/29/17 06:06 Globulin 3.1 gm/dL 11/29/17 06:06 Albumin/Globulin Ratio 0.6 (1.0-1.8) L 11/29/17 06:06 Triglycerides 63 mg/dL (<150) 11/29/17 06:06 Cholesterol 76 mg/dL (<200) 11/29/17 06:06 LDL Cholesterol Direct 45 mg/dL (75-193) L 11/29/17 06:06 HDL Cholesterol 11 mg/dL (23-92) L 11/29/17 06:06 Amylase 13 U/L (29-103) L 11/29/17 06:06 Lipase 8 U/L (11-82) L 11/29/17 06:06 Urine Source CLEAN C 11/29/17 20:55 Urine Color YELLOW 11/29/17 20:55 Urine Clarity SLIGHTLY HAZY (CLEAR) 11/29/17 20:55 Urine pH 6.5 (4.6 - 8.0) 11/29/17 20:55 Ur Specific [place] 1.025 (1.005-1.030) 11/29/17 20:55 Urine Protein NEGATIVE mg/dL (NEGATIVE) 11/29/17 20:55 Urine Glucose (UA) NEGATIVE mg/dL (NEGATIVE) 11/29/17 20:55 Urine Ketones TRACE mg/dL (NEGATIVE) 11/29/17 20:55 Urine Blood TRACE (NEGATIVE) 11/29/17 20:55 Urine Nitrate NEGATIVE (NEGATIVE) 11/29/17 20:55 Urine Bilirubin NEGATIVE (NEGATIVE) 11/29/17 20:55 Urine Urobilinogen 0.2 E.U./dL (0.2 - 1.0) 11/29/17 20:55 Ur Leukocyte Esterase NEGATIVE (NEGATIVE) 11/29/17 20:55 Urine RBC 5-10 /hpf (0-5) H 11/29/17 20:55 Urine WBC 0-2 /hpf (0-5) 11/29/17 20:55 Ur Epithelial Cells OCCASIONAL /lpf (FEW) 11/29/17 20:55 Urine Bacteria NONE SEEN /hpf (NONE SEEN) 11/29/17 20:55 Urine Mucus MODERATE /lpf (FEW) 11/29/17 20:55 Body Fluid Site ABDOMEN 11/29/17 13:40 Fluid Source PARACENTHESIS 11/29/17 13:40 Fluid Color PALE YELLOW 11/29/17 13:40 Fluid Appearance HAZY 11/29/17 13:40 Fluid WBC 12 /cumm 11/29/17 13:40 Fluid RBC 19 /cumm 11/29/17 13:40 Fluid Neutrophils 2 % 11/29/17 13:40 Fluid Lymphocytes 63 % 11/29/17 13:40 Fluid Monocytes 35 % 11/29/17 13:40 Fld Mesothelial Cells MODERATE 11/29/17 13:40 Body Fluid Clot 11/29/17 13:40 Fluid Total Protein 1.4 g/dL 11/29/17 13:40 Fluid LDH 40 U/L 11/29/17 13:40 - Physical Exam Vitals and I&O: Vital Signs Temp 97.4 F 12/02/17 10:56 Pulse 64 12/02/17 10:56 Resp 17 12/02/17 11:07 BP 131/72 12/02/17 10:56 Pulse Ox 92 12/02/17 10:56 Intake & Output 12/01/17 12/02/17 12/02/17 18:59 06:59 18:59 Intake Total 1473 675 2815 Balance 2649 932 8757 Weight (lbs) 86.239 kg Intake: Intake, IV Amount 1000 1000 D5-0.45NS 1,000 ml @ 75 1000 1000 mls/hr IV .[id number] [facility] Rx #:[id number] Oral 200 Other: # Voids 4 # Bowel Movements 2 Stool Characteristics Soft Soft Soft Weight Source Bedscale Active Medications: Current Medications Artificial Tears (Artificial Tears Ophth Soln) 1 drop EACH EYE QID [facility] Stop: 01/29/18 12:59 Last Admin: 12/02/17 09:44 Dose: 1 drop Dicyclomine HCl (Bentyl) 20 mg PO BID [facility] Stop: 01/28/18 16:59 Last Admin: 12/02/17 09:44 Dose: Not Given Diphenhydramine HCl (Benadryl) 25 mg PO TID [facility] Stop: 01/28/18 13:59 Last Admin: 12/02/17 09:44 Dose: Not Given Ferrous Sulfate (Iron) 325 mg PO DAILY [facility] Stop: 01/28/18 09:59 Last Admin: 12/02/17 09:44 Dose: Not Given Hydromorphone HCl (Dilaudid) 1 mg IVP Q4H PRN PRN Reason: Abdominal Pain Stop: 01/28/18 01:29 Last Admin: 12/02/17 10:03 Dose: 1 mg Hydromorphone HCl (Dilaudid) 2 mg PO Q4H PRN PRN Reason: Pain (Severe) Stop: 01/28/18 09:45 Last Admin: 12/02/17 08:01 Dose: 2 mg Hydroxyzine HCl (Atarax) 25 mg PO TID [facility]; Protocol Stop: 01/28/18 13:59 Last Admin: 12/02/17 09:44 Dose: Not Given Dextrose/Sodium Chloride (D5-0.45ns) 1,000 mls @ 75 mls/hr IV .[id number] [facility] Stop: 01/28/18 08:29 Last Admin: 12/02/17 11:48 Dose: 75 mls/hr Lactulose (Cephulac) 60 gm PO QID [facility] Stop: 01/28/18 12:59 Last Admin: 12/02/17 09:44 Dose: Not Given Levocarnitine (Carnitor) 330 mg PO BID [facility] Stop: 01/28/18 16:59 Last Admin: 12/02/17 09:44 Dose: Not Given Spironolactone (Aldactone) 50 mg PO DAILY [facility] Stop: 01/29/18 09:59 Last Admin: 12/02/17 09:44 Dose: Not Given Trazodone HCl (Desyrel) 50 mg PO HS [facility]; Protocol Stop: 01/28/18 20:59 Last Admin: 12/01/17 21:03 Dose: 50 mg Triamcinolone Acetonide (Kenalog 0.1%) 1 appl TP QID [facility] Stop: 01/28/18 12:59 Last Admin: 12/02/17 09:44 Dose: Not Given Vitamin D (Vitamin D3) 2,000 iu PO DAILY [facility] Stop: 01/28/18 09:59 Last Admin: 12/02/17 09:44 Dose: Not Given General: Alert HEENT: Atraumatic Neck: Supple Cardiovascular: Regular rate Abdomen: Bowel sounds, Soft, Tender, Distended, no Hepatomegaly, no Rebound, no Mass, no Guarding Skin: no Rash - Procedures Procedures: Procedures Procedure Code Date EXCISION OF DUODENUM, ENDO, DIAGN [id number] 06/06/17 EXCISION OF STOMACH, ENDO, DIAGN [id number] 06/06/17 EXCISION OF TRANSVERSE COLON, ENDO [id number] 06/06/17 Assessment/Plan - Assessment Assessment: * hep c and cirrhosis * Vitamin k deficiency * thrombocytopenia worse * Abd. pain per GI vitamin k supplementation and monitoring coags and plt 12/01: coags better on vitamin k. plt and hgb stable 12/02: lab noted. plt better. hgb stable Nutritional Asmnt/Malnutr-PDOC - Dietary Evaluation Malnutrition Findings (Please click <Entered> for more info): Nutritional Asmnt/Malnutrition Start: 11/29/17 17: 35 Text: Status: Complete Freq: Protocol: Document 11/29/17 17:35 [email or web address] (Rec: 11/29/17 17:41 [facility] Nutritional Asmnt/Malnutrition Patient General Information Nutritional Screening High Risk Diagnosis abd apin, intractable pain, gastritis Pertinent Medical Hx/Surgical Hx hepatitis B, psychosis, thrombocytopeni, HTN, DM, asthma/COPD, PUD/GERD, depresion, schizophrenia, bipolar Subjective Information Pt seen in room having abd ultrasound, not appropirate for interview at this time. Current Diet Order/ Nutrition Support mech soft chopped, boost TID Pertinent Medications D5-0.45ns, iron, vit D3 Pertinent Labs 11/29 Na 134, BUN 5, Cr 0.6, Ca 7.7, glucose 91 Nutritional Hx/Data Height 1.83 m Height (Calculated Centimeters) 182.9 Current Weight (lbs) 90.718 kg Weight (Calculated Kilograms) 90.7 Weight (Calculated Grams) 27873.5 [place] Body Weight 178 Body Mass Index (BMI) 27.1 Weight Status Overweight GI Symptoms GI Symptoms None Last BM not indicated Difficult in: None Skin Integrity/Comment: bruise to right and left upper arm Estimated Nutritional Goals BEE in Kcals: Using Current wt Calories/Kcals/Kg 23-27 Kcals Calculated 6650-2498 Protein: Using Current wt Protein g/k.8-1 Protein Calculated 72-91 Fluid: ml 2093-2457ml (1ml/kcal) Nutritional Problem No current Nutrition Prob Problem N/A Intervention/Recommendation Comments 1. Continue with current diet with supplements as ordered. 2. Monitor PO intake, wt, labs and skin integrity 3. F/U as high risk in 2-3 days, 12/01-12/02 Expected Outcomes/Goals Expected Outcomes/Goals 1. PO intake to meet at least 75% of nutritional needs. 2. Wt stability, skin to remain intact, labs to approach WNL.
--- NOTE | 2017-12-02 16:47 | Internal Medicine Prog Note ---
Internal Medicine Subjective - Subjective Service Date: 12/02/17 (PATIENT C/O BODY PAIN ) Patient seen and examined:: with staff Patient is:: awake Per staff patient has:: tolerating meds Internal Medicine Objective - Results Result Diagrams: 12/02/17 05:50 11/29/17 06:06 Recent Labs: Laboratory Last Values WBC 3.0 Th/cmm (4.8-10.8) L 12/02/17 05:50 RBC 3.48 Mil/cmm (3.80-5.80) L 12/02/17 05:50 Hgb 10.4 gm/dL (12-16) L 12/02/17 05:50 Hct 30.8 % (41.0-60) L 12/02/17 05:50 MCV 88.4 fl (80-99) 12/02/17 05:50 MCH 29.9 pg (27.0-31.0) 12/02/17 05:50 MCHC Differential 33.8 pg (28.0-36.0) 12/02/17 05:50 RDW 15.8 % (11.5-20.0) 12/02/17 05:50 Plt Count 59 Th/cmm (150-400) L 12/02/17 05:50 MPV 8.1 fl 12/02/17 05:50 Neutrophils % 53.5 % (40.0-80.0) 12/02/17 05:50 Band Neutrophils % 0 % (0-10) 11/28/17 17:33 Lymphocytes % 28.8 % (20.0-50.0) 12/02/17 05:50 Monocytes % 9.9 % (2.0-10.0) 12/02/17 05:50 Eosinophils % 6.8 % (0.0-5.0) H 12/02/17 05:50 Basophils % 1.0 % (0.0-2.0) 12/02/17 05:50 Neutrophils (Manual) 54 % (40-80) 11/28/17 17:33 Lymphocytes 35 % (20-50) 11/28/17 17:33 Monocytes 8 % (2-10) 11/28/17 17:33 Eosinophils 2 % (0-5) 11/28/17 17:33 Basophils 1 % (0-3) 11/28/17 17:33 Platelet Estimate DECREASED PLATELETS (NORMAL) 11/28/17 17:33 Smear Path Review 12/02/17 05:50 PT 13.7 SECONDS (9.5-11.5) H 12/02/17 05:50 INR 1.30 (0.5-1.4) 12/02/17 05:50 PTT (Actin FS) 34.1 SECONDS (26.0-38.0) 12/01/17 05:25 Sodium 134 mEq/L (136-145) L 11/29/17 06:06 Potassium 3.7 mEq/L (3.5-5.1) 11/29/17 06:06 Chloride 107 mEq/L (98-107) 11/29/17 06:06 Carbon Dioxide 24.1 mEq/L (21.0-31.0) 11/29/17 06:06 Anion Gap 6.6 (7.0-16.0) L 11/29/17 06:06 BUN 5 mg/dL (7-25) L 11/29/17 06:06 Creatinine 0.6 mg/dL (0.7-1.3) L 11/29/17 06:06 Est GFR ( Amer) > 60.0 ml/min (>90) 11/29/17 06:06 Est GFR (Non-Af Amer) > 60.0 ml/min 11/29/17 06:06 BUN/Creatinine Ratio 8.3 11/29/17 06:06 Glucose 91 mg/dL (70-105) 11/29/17 06:06 Whole Bld Lactic Acid 1.16 mmol/L (0.60-1.99) 11/28/17 17:33 Calcium 7.7 mg/dL (8.6-10.3) L 11/29/17 06:06 Total Bilirubin 0.9 mg/dL (0.3-1.0) 11/29/17 06:06 AST 22 U/L (13-39) 11/29/17 06:06 ALT 9 U/L (7-52) 11/29/17 06:06 Alkaline Phosphatase 45 U/L (34-104) 11/29/17 06:06 Creatine Kinase 43 U/L (30-223) 11/28/17 17:33 Troponin I 0.02 ng/mL (0.01-0.05) 11/28/17 17:33 B-Natriuretic Peptide 73.8 pg/mL (5.0-100.0) 11/28/17 17:33 Total Protein 5.0 gm/dL (6.0-8.3) L 11/29/17 06:06 Albumin 1.9 gm/dL (4.2-5.5) L 11/29/17 06:06 Globulin 3.1 gm/dL 11/29/17 06:06 Albumin/Globulin Ratio 0.6 (1.0-1.8) L 11/29/17 06:06 Triglycerides 63 mg/dL (<150) 11/29/17 06:06 Cholesterol 76 mg/dL (<200) 11/29/17 06:06 LDL Cholesterol Direct 45 mg/dL (75-193) L 11/29/17 06:06 HDL Cholesterol 11 mg/dL (23-92) L 11/29/17 06:06 Amylase 13 U/L (29-103) L 11/29/17 06:06 Lipase 8 U/L (11-82) L 11/29/17 06:06 Urine Source CLEAN C 11/29/17 20:55 Urine Color YELLOW 11/29/17 20:55 Urine Clarity SLIGHTLY HAZY (CLEAR) 11/29/17 20:55 Urine pH 6.5 (4.6 - 8.0) 11/29/17 20:55 Ur Specific [place] 1.025 (1.005-1.030) 11/29/17 20:55 Urine Protein NEGATIVE mg/dL (NEGATIVE) 11/29/17 20:55 Urine Glucose (UA) NEGATIVE mg/dL (NEGATIVE) 11/29/17 20:55 Urine Ketones TRACE mg/dL (NEGATIVE) 11/29/17 20:55 Urine Blood TRACE (NEGATIVE) 11/29/17 20:55 Urine Nitrate NEGATIVE (NEGATIVE) 11/29/17 20:55 Urine Bilirubin NEGATIVE (NEGATIVE) 11/29/17 20:55 Urine Urobilinogen 0.2 E.U./dL (0.2 - 1.0) 11/29/17 20:55 Ur Leukocyte Esterase NEGATIVE (NEGATIVE) 11/29/17 20:55 Urine RBC 5-10 /hpf (0-5) H 11/29/17 20:55 Urine WBC 0-2 /hpf (0-5) 11/29/17 20:55 Ur Epithelial Cells OCCASIONAL /lpf (FEW) 11/29/17 20:55 Urine Bacteria NONE SEEN /hpf (NONE SEEN) 11/29/17 20:55 Urine Mucus MODERATE /lpf (FEW) 11/29/17 20:55 Body Fluid Site ABDOMEN 11/29/17 13:40 Fluid Source PARACENTHESIS 11/29/17 13:40 Fluid Color PALE YELLOW 11/29/17 13:40 Fluid Appearance HAZY 11/29/17 13:40 Fluid WBC 12 /cumm 11/29/17 13:40 Fluid RBC 19 /cumm 11/29/17 13:40 Fluid Neutrophils 2 % 11/29/17 13:40 Fluid Lymphocytes 63 % 11/29/17 13:40 Fluid Monocytes 35 % 11/29/17 13:40 Fld Mesothelial Cells MODERATE 11/29/17 13:40 Body Fluid Clot 11/29/17 13:40 Fluid Total Protein 1.4 g/dL 11/29/17 13:40 Fluid LDH 40 U/L 11/29/17 13:40 - Physical Exam Vitals and I&O: Vital Signs Temp 97.4 F 12/02/17 14:01 Pulse 64 12/02/17 14:01 Resp 18 12/02/17 15:06 BP 131/72 12/02/17 14:01 Pulse Ox 92 12/02/17 14:01 Intake & Output 12/01/17 12/02/17 12/02/17 18:59 06:59 18:59 Intake Total 6146 912 5046 Balance 4767 178 4371 Weight (lbs) 190 lb 2 oz Intake: Intake, IV Amount 1000 1000 D5-0.45NS 1,000 ml @ 75 1000 1000 mls/hr IV .[id number] [facility] Rx #:[id number] Oral 200 Other: # Voids 4 # Bowel Movements 2 Stool Characteristics Soft Soft Soft Weight Source Bedscale Active Medications: Current Medications Artificial Tears (Artificial Tears Ophth Soln) 1 drop EACH EYE QID [facility] Stop: 01/29/18 12:59 Last Admin: 12/02/17 16:22 Dose: 1 drop Dicyclomine HCl (Bentyl) 20 mg PO BID [facility] Stop: 01/28/18 16:59 Last Admin: 12/02/17 16:22 Dose: 20 mg Diphenhydramine HCl (Benadryl) 25 mg PO TID [facility] Stop: 01/28/18 13:59 Last Admin: 12/02/17 13:05 Dose: 25 mg Ferrous Sulfate (Iron) 325 mg PO DAILY [facility] Stop: 01/28/18 09:59 Last Admin: 12/02/17 09:44 Dose: Not Given Hydromorphone HCl (Dilaudid) 1 mg IVP Q4H PRN PRN Reason: Abdominal Pain Stop: 01/28/18 01:29 Last Admin: 12/02/17 13:47 Dose: 1 mg Hydromorphone HCl (Dilaudid) 2 mg PO Q4H PRN PRN Reason: Pain (Severe) Stop: 01/28/18 09:45 Last Admin: 12/02/17 08:01 Dose: 2 mg Hydroxyzine HCl (Atarax) 25 mg PO TID [facility]; Protocol Stop: 01/28/18 13:59 Last Admin: 12/02/17 13:05 Dose: 25 mg Dextrose/Sodium Chloride (D5-0.45ns) 1,000 mls @ 75 mls/hr IV .[id number] [facility] Stop: 01/28/18 08:29 Last Admin: 12/02/17 11:48 Dose: 75 mls/hr Lactulose (Cephulac) 60 gm PO QID [facility] Stop: 01/28/18 12:59 Last Admin: 12/02/17 16:22 Dose: Not Given Levocarnitine (Carnitor) 330 mg PO BID [facility] Stop: 01/28/18 16:59 Last Admin: 12/02/17 16:22 Dose: 330 mg Ondansetron HCl (Zofran) 4 mg IV Q6H PRN PRN Reason: Nausea / Vomiting Stop: 01/31/18 13:08 Last Admin: 12/02/17 13:48 Dose: 4 mg Spironolactone (Aldactone) 50 mg PO DAILY [facility] Stop: 01/29/18 09:59 Last Admin: 12/02/17 09:44 Dose: Not Given Trazodone HCl (Desyrel) 50 mg PO HS [facility]; Protocol Stop: 01/28/18 20:59 Last Admin: 12/01/17 21:03 Dose: 50 mg Triamcinolone Acetonide (Kenalog 0.1%) 1 appl TP QID [facility] Stop: 01/28/18 12:59 Last Admin: 12/02/17 16:19 Dose: Not Given Vitamin D (Vitamin D3) 2,000 iu PO DAILY [facility] Stop: 01/28/18 09:59 Last Admin: 12/02/17 09:44 Dose: Not Given General: alert HEENT: NC/AT, PERRLA Neck: Supple Cardiovascular: without murmur Abdomen: non-tender, other (ROUND) Neurological: alert - Procedures Procedures: Procedures Procedure Code Date EXCISION OF DUODENUM, ENDO, DIAGN [id number] 06/06/17 EXCISION OF STOMACH, ENDO, DIAGN [id number] 06/06/17 EXCISION OF TRANSVERSE COLON, ENDO [id number] 06/06/17 Internal Medicine Assmt/Plan - Assessment Assessment: Pancytopenia secondary to liver disease. Cirrhosis. Hepatitis C. Hypertension. Chronic pain syndrome. Asthma chronic obstructive pulmonary disease. Dyslipidemia. Peptic ulcer disease Neuropathy. . - Plan Plan: follow up labs in am pain mgmt continue current plan of care Nutritional Asmnt/Malnutr-PDOC - Dietary Evaluation Malnutrition Findings (Please click <Entered> for more info): Nutritional Asmnt/Malnutrition Start: 11/29/17 17: 35 Text: Status: Complete Freq: Protocol: Document 11/29/17 17:35 LCHENG (Rec: 11/29/17 17:41 [email or web address]) Nutritional Asmnt/Malnutrition Patient General Information Nutritional Screening High Risk Diagnosis abd apin, intractable pain, gastritis Pertinent Medical Hx/Surgical Hx hepatitis B, psychosis, thrombocytopeni, HTN, DM, asthma/COPD, PUD/GERD, depresion, schizophrenia, bipolar Subjective Information Pt seen in room having abd ultrasound, not appropirate for interview at this time. Current Diet Order/ Nutrition Support mech soft chopped, boost TID Pertinent Medications D5-0.45ns, iron, vit D3 Pertinent Labs 11/29 Na 134, BUN 5, Cr 0.6, Ca 7.7, glucose 91 Nutritional Hx/Data Height 6 ft Height (Calculated Centimeters) 182.9 Current Weight (lbs) 200 lb Weight (Calculated Kilograms) 90.7 Weight (Calculated Grams) 97733.5 [place] Body Weight 178 Body Mass Index (BMI) 27.1 Weight Status Overweight GI Symptoms GI Symptoms None Last BM not indicated Difficult in: None Skin Integrity/Comment: bruise to right and left upper arm Estimated Nutritional Goals BEE in Kcals: Using Current wt Calories/Kcals/Kg 23-27 Kcals Calculated 2620-4856 Protein: Using Current wt Protein g/k.8-1 Protein Calculated 72-91 Fluid: ml 2092-245ml (1ml/kcal) Nutritional Problem No current Nutrition Prob Problem N/A Intervention/Recommendation Comments 1. Continue with current diet with supplements as ordered. 2. Monitor PO intake, wt, labs and skin integrity 3. F/U as high risk in 2-3 days, 12/01-12/02 Expected Outcomes/Goals Expected Outcomes/Goals 1. PO intake to meet at least 75% of nutritional needs. 2. Wt stability, skin to remain intact, labs to approach WNL.
[2017-12-03] MEDS: HYDROmorphone 2 mg/mL 1mL Vial IVP PRN ×6 (01:21→22:20)
[2017-12-03 07:11] LABS: HEMATOCRIT 26.4 % (41.0-60); HEMOGLOBIN 8.9 gm/dL (12-16); MEAN CELL VOLUME 88.1 fl (80-99); MEAN CORPUSCULAR HEMOGLOBIN 29.7 pg (27.0-31.0); MEAN CORPUSCULAR HGB CONC 33.6 pg (28.0-36.0); MEAN PLATELET VOLUME 7.6 fl; PLATELET COUNT 54 Th/cmm (150-400); RED BLOOD COUNT 2.99 Mil/cmm (3.80-5.80); RED CELL DISTRIBUTION WIDTH 15.6 % (11.5-20.0)
[2017-12-03 07:37] LABS: ANION GAP 7.7 (7.0-16.0); BUN - UREA NITROGEN 3 mg/dL (7-25); CALCIUM SERUM 7.6 mg/dL (8.6-10.3); CHLORIDE 104 mEq/L (98-107); CREATININE - SERUM 0.6 mg/dL (0.7-1.3); GFR AFRICAN-AMERICAN > 60.0 ml/min (>90); GFR NON AFRICAN-AMERICAN > 60.0 ml/min; GLUCOSE 114 mg/dL (70-105); POTASSIUM SERUM 3.7 mEq/L (3.5-5.1); SODIUM SERUM 131 mEq/L (136-145)
[2017-12-03 07:51] LABS: WHITE BLOOD COUNT 3.4 Th/cmm (4.8-10.8)
[2017-12-03 07:52] LABS: MANUAL DIFF REQUIRED? YES
[2017-12-03 08:02] LABS: TOTAL CELLS COUNTED 100
[2017-12-03 08:03] LABS: BAND NEUTROPHILE 1 % (0-10); BASOPHIL 0 % (0-3); EOSINOPHIL 6 % (0-5); LYMPHOCYTE 25 % (20-50); MONOCYTE 10 % (2-10); NEUTROPHILS 58 % (40-80)
[2017-12-03] MEDS: Lactulose 10 Gm/15 mL 30mL UDC PO SCH ×4 (08:53→21:07)
[2017-12-03] MEDS: Dicyclomine 10 mg Cap PO SCH ×2 (08:54→16:47)
[2017-12-03] MEDS: Vitamin D3 2,000 IU SGL PO SCH (08:54)
[2017-12-03] MEDS: Ferrous Sulfate 325 MG TAB PO SCH (08:54)
[2017-12-03] MEDS: Triamcinolone Acetonide 0.1% Cream 15 gm TP SCH ×4 (09:08→21:07)
[2017-12-03] MEDS: Polyvinyl Alcohol Ophth Soln 15 mL Bottle EACH EYE SCH ×4 (09:08→21:06)
--- NOTE | 2017-12-03 10:13 | General Progress Note ---
Subjective - Review of Systems Events since last encounter: tolerating meds no distress Objective - Results Result Diagrams: 12/03/17 06:22 12/03/17 06:22 Recent Labs: Laboratory Last Values WBC 3.4 Th/cmm (4.8-10.8) L 12/03/17 06:22 RBC 2.99 Mil/cmm (3.80-5.80) L 12/03/17 06:22 Hgb 8.9 gm/dL (12-16) L 12/03/17 06:22 Hct 26.4 % (41.0-60) L 12/03/17 06:22 MCV 88.1 fl (80-99) 12/03/17 06:22 MCH 29.7 pg (27.0-31.0) 12/03/17 06:22 MCHC Differential 33.6 pg (28.0-36.0) 12/03/17 06:22 RDW 15.6 % (11.5-20.0) 12/03/17 06:22 Plt Count 54 Th/cmm (150-400) L 12/03/17 06:22 MPV 7.6 fl 12/03/17 06:22 Neutrophils % 53.5 % (40.0-80.0) 12/02/17 05:50 Band Neutrophils % 1 % (0-10) 12/03/17 06:22 Lymphocytes % 28.8 % (20.0-50.0) 12/02/17 05:50 Monocytes % 9.9 % (2.0-10.0) 12/02/17 05:50 Eosinophils % 6.8 % (0.0-5.0) H 12/02/17 05:50 Basophils % 1.0 % (0.0-2.0) 12/02/17 05:50 Neutrophils (Manual) 58 % (40-80) 12/03/17 06:22 Lymphocytes 25 % (20-50) 12/03/17 06:22 Monocytes 10 % (2-10) 12/03/17 06:22 Eosinophils 6 % (0-5) H 12/03/17 06:22 Basophils 0 % (0-3) 12/03/17 06:22 Platelet Estimate DECREASED PLATELETS (NORMAL) 11/28/17 17:33 Smear Path Review 12/02/17 05:50 PT 13.7 SECONDS (9.5-11.5) H 12/02/17 05:50 INR 1.30 (0.5-1.4) 12/02/17 05:50 PTT (Actin FS) 34.1 SECONDS (26.0-38.0) 12/01/17 05:25 Sodium 131 mEq/L (136-145) L 12/03/17 06:22 Potassium 3.7 mEq/L (3.5-5.1) 12/03/17 06:22 Chloride 104 mEq/L (98-107) 12/03/17 06:22 Carbon Dioxide 23.0 mEq/L (21.0-31.0) 12/03/17 06:22 Anion Gap 7.7 (7.0-16.0) 12/03/17 06:22 BUN 3 mg/dL (7-25) L 12/03/17 06:22 Creatinine 0.6 mg/dL (0.7-1.3) L 12/03/17 06:22 Est GFR ( Amer) > 60.0 ml/min (>90) 12/03/17 06:22 Est GFR (Non-Af Amer) > 60.0 ml/min 12/03/17 06:22 BUN/Creatinine Ratio 5.0 12/03/17 06:22 Glucose 114 mg/dL (70-105) H 12/03/17 06:22 Whole Bld Lactic Acid 1.16 mmol/L (0.60-1.99) 11/28/17 17:33 Calcium 7.6 mg/dL (8.6-10.3) L 12/03/17 06:22 Total Bilirubin 0.9 mg/dL (0.3-1.0) 11/29/17 06:06 AST 22 U/L (13-39) 11/29/17 06:06 ALT 9 U/L (7-52) 11/29/17 06:06 Alkaline Phosphatase 45 U/L (34-104) 11/29/17 06:06 Creatine Kinase 43 U/L (30-223) 11/28/17 17:33 Troponin I 0.02 ng/mL (0.01-0.05) 11/28/17 17:33 B-Natriuretic Peptide 73.8 pg/mL (5.0-100.0) 11/28/17 17:33 Total Protein 5.0 gm/dL (6.0-8.3) L 11/29/17 06:06 Albumin 1.9 gm/dL (4.2-5.5) L 11/29/17 06:06 Globulin 3.1 gm/dL 11/29/17 06:06 Albumin/Globulin Ratio 0.6 (1.0-1.8) L 11/29/17 06:06 Triglycerides 63 mg/dL (<150) 11/29/17 06:06 Cholesterol 76 mg/dL (<200) 11/29/17 06:06 LDL Cholesterol Direct 45 mg/dL (75-193) L 11/29/17 06:06 HDL Cholesterol 11 mg/dL (23-92) L 11/29/17 06:06 Amylase 13 U/L (29-103) L 11/29/17 06:06 Lipase 8 U/L (11-82) L 11/29/17 06:06 Urine Source CLEAN C 11/29/17 20:55 Urine Color YELLOW 11/29/17 20:55 Urine Clarity SLIGHTLY HAZY (CLEAR) 11/29/17 20:55 Urine pH 6.5 (4.6 - 8.0) 11/29/17 20:55 Ur Specific [place] 1.025 (1.005-1.030) 11/29/17 20:55 Urine Protein NEGATIVE mg/dL (NEGATIVE) 11/29/17 20:55 Urine Glucose (UA) NEGATIVE mg/dL (NEGATIVE) 11/29/17 20:55 Urine Ketones TRACE mg/dL (NEGATIVE) 11/29/17 20:55 Urine Blood TRACE (NEGATIVE) 11/29/17 20:55 Urine Nitrate NEGATIVE (NEGATIVE) 11/29/17 20:55 Urine Bilirubin NEGATIVE (NEGATIVE) 11/29/17 20:55 Urine Urobilinogen 0.2 E.U./dL (0.2 - 1.0) 11/29/17 20:55 Ur Leukocyte Esterase NEGATIVE (NEGATIVE) 11/29/17 20:55 Urine RBC 5-10 /hpf (0-5) H 11/29/17 20:55 Urine WBC 0-2 /hpf (0-5) 11/29/17 20:55 Ur Epithelial Cells OCCASIONAL /lpf (FEW) 11/29/17 20:55 Urine Bacteria NONE SEEN /hpf (NONE SEEN) 11/29/17 20:55 Urine Mucus MODERATE /lpf (FEW) 11/29/17 20:55 Body Fluid Site ABDOMEN 11/29/17 13:40 Fluid Source PARACENTHESIS 11/29/17 13:40 Fluid Color PALE YELLOW 11/29/17 13:40 Fluid Appearance HAZY 11/29/17 13:40 Fluid WBC 12 /cumm 11/29/17 13:40 Fluid RBC 19 /cumm 11/29/17 13:40 Fluid Neutrophils 2 % 11/29/17 13:40 Fluid Lymphocytes 63 % 11/29/17 13:40 Fluid Monocytes 35 % 11/29/17 13:40 Fld Mesothelial Cells MODERATE 11/29/17 13:40 Body Fluid Clot 11/29/17 13:40 Fluid Total Protein 1.4 g/dL 11/29/17 13:40 Fluid LDH 40 U/L 11/29/17 13:40 - Physical Exam Vitals and I&O: Vital Signs Temp 98.2 F 12/03/17 08:00 Pulse 92 12/03/17 08:53 Resp 18 12/03/17 08:00 BP 151/95 12/03/17 08:53 Pulse Ox 96 12/03/17 08:00 Intake & Output 12/02/17 12/03/17 12/03/17 18:59 06:59 18:59 Intake Total 1250 Output Total 700 Balance 1250 -700 Weight (lbs) 86.183 kg 87.487 kg Intake: Intake, IV Amount 1000 D5-0.45NS 1,000 ml @ 75 1000 mls/hr IV .[id number] [facility] Rx #:[id number] Oral 250 Output: Urine 700 Other: # Voids 400 1 # Bowel Movements 0 0 Stool Characteristics Soft Weight Source Bedscale Bedscale Active Medications: Current Medications Artificial Tears (Artificial Tears Ophth Soln) 1 drop EACH EYE QID [facility] Stop: 01/29/18 12:59 Last Admin: 12/03/17 09:08 Dose: 1 drop Dicyclomine HCl (Bentyl) 20 mg PO BID [facility] Stop: 01/28/18 16:59 Last Admin: 12/03/17 08:54 Dose: 20 mg Diphenhydramine HCl (Benadryl) 25 mg PO TID [facility] Stop: 01/28/18 13:59 Last Admin: 12/03/17 08:54 Dose: 25 mg Ferrous Sulfate (Iron) 325 mg PO DAILY [facility] Stop: 01/28/18 09:59 Last Admin: 12/03/17 08:54 Dose: 325 mg Hydromorphone HCl (Dilaudid) 1 mg IVP Q4H PRN PRN Reason: Abdominal Pain Stop: 01/28/18 01:29 Last Admin: 12/03/17 08:57 Dose: 1 mg Hydromorphone HCl (Dilaudid) 2 mg PO Q4H PRN PRN Reason: Pain (Severe) Stop: 01/28/18 09:45 Last Admin: 12/02/17 08:01 Dose: 2 mg Hydroxyzine HCl (Atarax) 25 mg PO TID [facility]; Protocol Stop: 01/28/18 13:59 Last Admin: 12/03/17 08:54 Dose: 25 mg Dextrose/Sodium Chloride (D5-0.45ns) 1,000 mls @ 75 mls/hr IV .[id number] [facility] Stop: 01/28/18 08:29 Last Admin: 12/02/17 11:48 Dose: 75 mls/hr Lactulose (Cephulac) 60 gm PO QID [facility] Stop: 01/28/18 12:59 Last Admin: 12/03/17 08:53 Dose: 60 gm Levocarnitine (Carnitor) 330 mg PO BID [facility] Stop: 01/28/18 16:59 Last Admin: 12/03/17 08:55 Dose: 330 mg Ondansetron HCl (Zofran) 4 mg IV Q6H PRN PRN Reason: Nausea / Vomiting Stop: 01/31/18 13:08 Last Admin: 12/03/17 08:57 Dose: 4 mg Spironolactone (Aldactone) 50 mg PO DAILY [facility] Stop: 01/29/18 09:59 Last Admin: 12/03/17 08:53 Dose: 50 mg Trazodone HCl (Desyrel) 50 mg PO HS [facility]; Protocol Stop: 01/28/18 20:59 Last Admin: 12/02/17 21:23 Dose: 50 mg Triamcinolone Acetonide (Kenalog 0.1%) 1 appl TP QID [facility] Stop: 01/28/18 12:59 Last Admin: 12/03/17 09:08 Dose: Not Given Vitamin D (Vitamin D3) 2,000 iu PO DAILY [facility] Stop: 01/28/18 09:59 Last Admin: 12/03/17 08:54 Dose: 2,000 iu General: Alert HEENT: Atraumatic Neck: Supple Cardiovascular: Regular rate Abdomen: Bowel sounds, Soft, Tender, Distended, no Hepatomegaly, no Rebound, no Mass, no Guarding Skin: no Rash - Procedures Procedures: Procedures Procedure Code Date EXCISION OF DUODENUM, ENDO, DIAGN [id number] 06/06/17 EXCISION OF STOMACH, ENDO, DIAGN [id number] 06/06/17 EXCISION OF TRANSVERSE COLON, ENDO [id number] 06/06/17 Assessment/Plan - Plan Plan: cpm Nutritional Asmnt/Malnutr-PDOC - Dietary Evaluation Malnutrition Findings (Please click <Entered> for more info): Nutritional Asmnt/Malnutrition Start: 11/29/17 17: 35 Text: Status: Complete Freq: Protocol: Document 11/29/17 17:35 [email or web address] (Rec: 11/29/17 17:41 [email or web address]) Nutritional Asmnt/Malnutrition Patient General Information Nutritional Screening High Risk Diagnosis abd apin, intractable pain, gastritis Pertinent Medical Hx/Surgical Hx hepatitis B, psychosis, thrombocytopeni, HTN, DM, asthma/COPD, PUD/GERD, depresion, schizophrenia, bipolar Subjective Information Pt seen in room having abd ultrasound, not appropirate for interview at this time. Current Diet Order/ Nutrition Support mech soft chopped, boost TID Pertinent Medications D5-0.45ns, iron, vit D3 Pertinent Labs 11/29 Na 134, BUN 5, Cr 0.6, Ca 7.7, glucose 91 Nutritional Hx/Data Height 1.83 m Height (Calculated Centimeters) 182.9 Current Weight (lbs) 90.718 kg Weight (Calculated Kilograms) 90.7 Weight (Calculated Grams) 57793.5 [place] Body Weight 178 Body Mass Index (BMI) 27.1 Weight Status Overweight GI Symptoms GI Symptoms None Last BM not indicated Difficult in: None Skin Integrity/Comment: bruise to right and left upper arm Estimated Nutritional Goals BEE in Kcals: Using Current wt Calories/Kcals/Kg 23-27 Kcals Calculated 1060-9766 Protein: Using Current wt Protein g/k.8-1 Protein Calculated 72-91 Fluid: ml 2093-2457ml (1ml/kcal) Nutritional Problem No current Nutrition Prob Problem N/A Intervention/Recommendation Comments 1. Continue with current diet with supplements as ordered. 2. Monitor PO intake, wt, labs and skin integrity 3. F/U as high risk in 2-3 days, 12/01-12/02 Expected Outcomes/Goals Expected Outcomes/Goals 1. PO intake to meet at least 75% of nutritional needs. 2. Wt stability, skin to remain intact, labs to approach WNL.
--- NOTE | 2017-12-03 19:09 | Infectious Disease Prog Note ---
Infectious Disease Subjective - Review of Systems Service Date: 12/03/17 Subjective: Patient is to complain nausea vomiting. c/o abdominal pain and taking pain medication. Infectious Disease Objective - Results Result Diagrams: 12/03/17 06:22 12/03/17 06:22 Recent Labs: Laboratory Last Values WBC 3.4 Th/cmm (4.8-10.8) L 12/03/17 06:22 RBC 2.99 Mil/cmm (3.80-5.80) L 12/03/17 06:22 Hgb 8.9 gm/dL (12-16) L 12/03/17 06:22 Hct 26.4 % (41.0-60) L 12/03/17 06: MCV 88.1 fl (80-99) 12/03/17 06: MCH 29.7 pg (27.0-31.0) 12/03/17 06: MCHC Differential 33.6 pg (28.0-36.0) 12/03/17 06: RDW 15.6 % (11.5-20.0) 12/03/17 06:22 Plt Count 54 Th/cmm (150-400) L 12/03/17 06:22 MPV 7.6 fl 12/03/17 06: Neutrophils % 53.5 % (40.0-80.0) 12/02/17 05:50 Band Neutrophils % 1 % (0-10) 12/03/17 06:22 Lymphocytes % 28.8 % (20.0-50.0) 12/02/17 05:50 Monocytes % 9.9 % (2.0-10.0) 12/02/17 05:50 Eosinophils % 6.8 % (0.0-5.0) H 12/02/17 05:50 Basophils % 1.0 % (0.0-2.0) 12/02/17 05:50 Neutrophils (Manual) 58 % (40-80) 12/03/17 06: Lymphocytes 25 % (20-50) 12/03/17 06:22 Monocytes 10 % (2-10) 12/03/17 06:22 Eosinophils 6 % (0-5) H 12/03/17 06:22 Basophils 0 % (0-3) 12/03/17 06:22 Platelet Estimate DECREASED PLATELETS (NORMAL) 11/28/17 17:33 Smear Path Review 12/02/17 05:50 PT 13.7 SECONDS (9.5-11.5) H 12/02/17 05:50 INR 1.30 (0.5-1.4) 12/02/17 05:50 PTT (Actin FS) 34.1 SECONDS (26.0-38.0) 12/01/17 05:25 Sodium 131 mEq/L (136-145) L 12/03/17 06:22 Potassium 3.7 mEq/L (3.5-5.1) 12/03/17 06:22 Chloride 104 mEq/L (98-107) 12/03/17 06:22 Carbon Dioxide 23.0 mEq/L (21.0-31.0) 12/03/17 06:22 Anion Gap 7.7 (7.0-16.0) 12/03/17 06:22 BUN 3 mg/dL (7-25) L 12/03/17 06:22 Creatinine 0.6 mg/dL (0.7-1.3) L 12/03/17 06:22 Est GFR ( Amer) > 60.0 ml/min (>90) 12/03/17 06:22 Est GFR (Non-Af Amer) > 60.0 ml/min 12/03/17 06:22 BUN/Creatinine Ratio 5.0 12/03/17 06:22 Glucose 114 mg/dL (70-105) H 12/03/17 06:22 Whole Bld Lactic Acid 1.16 mmol/L (0.60-1.99) 11/28/17 17:33 Calcium 7.6 mg/dL (8.6-10.3) L 12/03/17 06:22 Total Bilirubin 0.9 mg/dL (0.3-1.0) 11/29/17 06:06 AST 22 U/L (13-39) 11/29/17 06:06 ALT 9 U/L (7-52) 11/29/17 06:06 Alkaline Phosphatase 45 U/L (34-104) 11/29/17 06:06 Creatine Kinase 43 U/L (30-223) 11/28/17 17:33 Troponin I 0.02 ng/mL (0.01-0.05) 11/28/17 17:33 B-Natriuretic Peptide 73.8 pg/mL (5.0-100.0) 11/28/17 17:33 Total Protein 5.0 gm/dL (6.0-8.3) L 11/29/17 06:06 Albumin 1.9 gm/dL (4.2-5.5) L 11/29/17 06:06 Globulin 3.1 gm/dL 11/29/17 06:06 Albumin/Globulin Ratio 0.6 (1.0-1.8) L 11/29/17 06:06 Triglycerides 63 mg/dL (<150) 11/29/17 06:06 Cholesterol 76 mg/dL (<200) 11/29/17 06:06 LDL Cholesterol Direct 45 mg/dL (75-193) L 11/29/17 06:06 HDL Cholesterol 11 mg/dL (23-92) L 11/29/17 06:06 Amylase 13 U/L (29-103) L 11/29/17 06:06 Lipase 8 U/L (11-82) L 11/29/17 06:06 Urine Source CLEAN C 11/29/17 20:55 Urine Color YELLOW 11/29/17 20:55 Urine Clarity SLIGHTLY HAZY (CLEAR) 11/29/17 20:55 Urine pH 6.5 (4.6 - 8.0) 11/29/17 20:55 Ur Specific [place] 1.025 (1.005-1.030) 11/29/17 20:55 Urine Protein NEGATIVE mg/dL (NEGATIVE) 11/29/17 20:55 Urine Glucose (UA) NEGATIVE mg/dL (NEGATIVE) 11/29/17 20:55 Urine Ketones TRACE mg/dL (NEGATIVE) 11/29/17 20:55 Urine Blood TRACE (NEGATIVE) 11/29/17 20:55 Urine Nitrate NEGATIVE (NEGATIVE) 11/29/17 20:55 Urine Bilirubin NEGATIVE (NEGATIVE) 11/29/17 20:55 Urine Urobilinogen 0.2 E.U./dL (0.2 - 1.0) 11/29/17 20:55 Ur Leukocyte Esterase NEGATIVE (NEGATIVE) 11/29/17 20:55 Urine RBC 5-10 /hpf (0-5) H 11/29/17 20:55 Urine WBC 0-2 /hpf (0-5) 11/29/17 20:55 Ur Epithelial Cells OCCASIONAL /lpf (FEW) 11/29/17 20:55 Urine Bacteria NONE SEEN /hpf (NONE SEEN) 11/29/17 20:55 Urine Mucus MODERATE /lpf (FEW) 11/29/17 20:55 Body Fluid Site ABDOMEN 11/29/17 13:40 Fluid Source PARACENTHESIS 11/29/17 13:40 Fluid Color PALE YELLOW 11/29/17 13:40 Fluid Appearance HAZY 11/29/17 13:40 Fluid WBC 12 /cumm 11/29/17 13:40 Fluid RBC 19 /cumm 11/29/17 13:40 Fluid Neutrophils 2 % 11/29/17 13:40 Fluid Lymphocytes 63 % 11/29/17 13:40 Fluid Monocytes 35 % 11/29/17 13:40 Fld Mesothelial Cells MODERATE 11/29/17 13:40 Body Fluid Clot 11/29/17 13:40 Fluid Total Protein 1.4 g/dL 11/29/17 13:40 Fluid LDH 40 U/L 11/29/17 13:40 - Physical Exam Vitals and I&O: Vital Signs Temp 98.3 F 12/03/17 16:00 Pulse 86 12/03/17 16:00 Resp 18 12/03/17 16:00 BP 127/69 12/03/17 16:00 Pulse Ox 96 12/03/17 16:00 Intake & Output 12/03/17 12/03/17 12/04/17 06:59 18:59 06:59 Intake Total 450 Output Total 700 Balance -700 450 Weight (lbs) 87.487 kg 87.09 kg Intake: Oral 450 Output: Urine 700 Other: # Voids 1 550 # Bowel Movements 0 2 Weight Source Bedscale Bedscale Active Medications: Current Medications Artificial Tears (Artificial Tears Ophth Soln) 1 drop EACH EYE QID [facility] Stop: 01/29/18 12:59 Last Admin: 12/03/17 16:47 Dose: 1 drop Dicyclomine HCl (Bentyl) 20 mg PO BID [facility] Stop: 01/28/18 16:59 Last Admin: 12/03/17 16:47 Dose: 20 mg Diphenhydramine HCl (Benadryl) 25 mg PO TID [facility] Stop: 01/28/18 13:59 Last Admin: 12/03/17 15:54 Dose: Not Given Ferrous Sulfate (Iron) 325 mg PO DAILY [facility] Stop: 01/28/18 09:59 Last Admin: 12/03/17 08:54 Dose: 325 mg Hydromorphone HCl (Dilaudid) 1 mg IVP Q4H PRN PRN Reason: Abdominal Pain Stop: 01/28/18 01:29 Last Admin: 12/03/17 16:47 Dose: 1 mg Hydromorphone HCl (Dilaudid) 2 mg PO Q4H PRN PRN Reason: Pain (Severe) Stop: 01/28/18 09:45 Last Admin: 12/02/17 08:01 Dose: 2 mg Hydroxyzine HCl (Atarax) 25 mg PO TID [facility]; Protocol Stop: 01/28/18 13:59 Last Admin: 12/03/17 15:54 Dose: Not Given Dextrose/Sodium Chloride (D5-0.45ns) 1,000 mls @ 75 mls/hr IV .[id number] [facility] Stop: 01/28/18 08:29 Last Admin: 12/02/17 11:48 Dose: 75 mls/hr Lactulose (Cephulac) 60 gm PO QID [facility] Stop: 01/28/18 12:59 Last Admin: 12/03/17 16:47 Dose: Not Given Levocarnitine (Carnitor) 330 mg PO BID [facility] Stop: 01/28/18 16:59 Last Admin: 12/03/17 16:47 Dose: 330 mg Ondansetron HCl (Zofran) 4 mg IV Q6H PRN PRN Reason: Nausea / Vomiting Stop: 01/31/18 13:08 Last Admin: 12/03/17 08:57 Dose: 4 mg Spironolactone (Aldactone) 50 mg PO DAILY [facility] Stop: 01/29/18 09:59 Last Admin: 12/03/17 08:53 Dose: 50 mg Trazodone HCl (Desyrel) 50 mg PO HS [facility]; Protocol Stop: 01/28/18 20:59 Last Admin: 12/02/17 21:23 Dose: 50 mg Triamcinolone Acetonide (Kenalog 0.1%) 1 appl TP QID [facility] Stop: 01/28/18 12:59 Last Admin: 12/03/17 16:48 Dose: Not Given Vitamin D (Vitamin D3) 2,000 iu PO DAILY [facility] Stop: 01/28/18 09:59 Last Admin: 12/03/17 08:54 Dose: 2,000 iu General: no acute distress, cachectic HEENT: atraumatic, normocephalic, PERRLA, EOMI, moist mucous membrane Neck: supple, no thyromegaly Cardiovascular: S1S2, regular Lungs: clear to auscultation bilaterally, clear to percussion Abdomen: soft, no tender, no distended Extremities: no cyanosis, no clubbing, no edema Neurological: awake, alert, oriented Skin: intact - Procedures Procedures: Procedures Procedure Code Date EXCISION OF DUODENUM, ENDO, DIAGN [id number] 06/06/17 EXCISION OF STOMACH, ENDO, DIAGN [id number] 06/06/17 EXCISION OF TRANSVERSE COLON, ENDO [id number] 06/06/17 Infectious Disease Assmt/Plan - Assessment Assessment: 1. Pancytopenia secondary to liver disease. 2. History of ORIF related to me which is treated. 3. Cirrhosis. Treated 4. Nausea, vomting and abdominal pain 5. Hepatitis C. 6. Hypertension. 7. Chronic pain syndrome. 8. Asthma, chronic obstructive pulmonary disease. 9. Dyslipidemia. 10. Peptic ulcer disease, gastroesophageal reflux disease. 11. Dementia. 12. Neuropathy. 13. History of methicillin-resistant Staphylococcus aureus infection of the left hip. Left hip prosthesis treated, no signs and symptoms of infection at this time. 14. History of open reduction and internal fixation of the left hip. - Plan Plan: Continue same treatment. Nutritional Asmnt/Malnutr-PDOC - Dietary Evaluation Malnutrition Findings (Please click <Entered> for more info): Nutritional Asmnt/Malnutrition Start: 11/29/17 17: 35 Text: Status: Complete Freq: Protocol: Document 11/29/17 17:35 LCHENG (Rec: 11/29/17 17:41 [email or web address] [email or web address]) Nutritional Asmnt/Malnutrition Patient General Information Nutritional Screening High Risk Diagnosis abd apin, intractable pain, gastritis Pertinent Medical Hx/Surgical Hx hepatitis B, psychosis, thrombocytopeni, HTN, DM, asthma/COPD, PUD/GERD, depresion, schizophrenia, bipolar Subjective Information Pt seen in room having abd ultrasound, not appropirate for interview at this time. Current Diet Order/ Nutrition Support mech soft chopped, boost TID Pertinent Medications D5-0.45ns, iron, vit D3 Pertinent Labs 11/29 Na 134, BUN 5, Cr 0.6, Ca 7.7, glucose 91 Nutritional Hx/Data Height 1.83 m Height (Calculated Centimeters) 182.9 Current Weight (lbs) 90.718 kg Weight (Calculated Kilograms) 90.7 Weight (Calculated Grams) 90254.5 [place] Body Weight 178 Body Mass Index (BMI) 27.1 Weight Status Overweight GI Symptoms GI Symptoms None Last BM not indicated Difficult in: None Skin Integrity/Comment: bruise to right and left upper arm Estimated Nutritional Goals BEE in Kcals: Using Current wt Calories/Kcals/Kg 23-27 Kcals Calculated 0549-3961 Protein: Using Current wt Protein g/k.8-1 Protein Calculated 72- Fluid: ml 2093-2457ml (1ml/kcal) Nutritional Problem No current Nutrition Prob Problem N/A Intervention/Recommendation Comments 1. Continue with current diet with supplements as ordered. 2. Monitor PO intake, wt, labs and skin integrity 3. F/U as high risk in 2-3 days, 12/01-12/02 Expected Outcomes/Goals Expected Outcomes/Goals 1. PO intake to meet at least 75% of nutritional needs. 2. Wt stability, skin to remain intact, labs to approach WNL.
[2017-12-04] MEDS: HYDROmorphone 2 mg/mL 1mL Vial IVP PRN ×5 (05:19→22:44)
[2017-12-04 05:31] LABS: EOSINOPHILE ABSOLUTE 0.2 Th/cmm (0.1-0.4); HEMOGLOBIN 9.1 gm/dL (12-16); MONOCYTE ABSOLUTE 0.4 Th/cmm (0.3-1.0); NEUTROPHILE ABSOLUTE 1.6 Th/cmm (1.8-8.0); RED BLOOD COUNT 3.06 Mil/cmm (3.80-5.80)
[2017-12-04 05:59] LABS: MEAN PLATELET VOLUME 8.7 fl; WHITE BLOOD COUNT 3.5 Th/cmm (4.8-10.8)
[2017-12-04 06:00] LABS: % BASOPHILS 0.4 % (0.0-2.0); % EOSINOPHILS 6.3 % (0.0-5.0); % LYMPHOCYTES 36.4 % (20.0-50.0); % MONOCYTES 12.6 % (2.0-10.0); % NEUTROPHILS 44.3 % (40.0-80.0); HEMATOCRIT 26.8 % (41.0-60); LYMPHOCYTE ABSOLUTE 1.3 Th/cmm (1.5-3.0); MEAN CELL VOLUME 87.7 fl (80-99); MEAN CORPUSCULAR HEMOGLOBIN 29.8 pg (27.0-31.0); PLATELET COUNT 51 Th/cmm (150-400); RED CELL DISTRIBUTION WIDTH 15.6 % (11.5-20.0)
[2017-12-04] MEDS: Lactulose 10 Gm/15 mL 30mL UDC PO SCH ×4 (10:58→21:41)
[2017-12-04] MEDS: Vitamin D3 2,000 IU SGL PO SCH (10:58)
[2017-12-04] MEDS: Ferrous Sulfate 325 MG TAB PO SCH (10:58)
[2017-12-04] MEDS: Dicyclomine 10 mg Cap PO SCH ×2 (10:58→16:16)
[2017-12-04] MEDS: Polyvinyl Alcohol Ophth Soln 15 mL Bottle EACH EYE SCH ×4 (10:59→22:01)
[2017-12-04] MEDS: Triamcinolone Acetonide 0.1% Cream 15 gm TP SCH ×3 (11:00→16:18)
--- NOTE | 2017-12-04 12:49 | GI Progress Note ---
Subjective - Review of Systems Service Date: 12/04/17 Subjective: Still reporting abd pain, wants more dilaudid prior to paracentesis Objective - Results Result Diagrams: 12/04/17 04:50 12/03/17 06:22 Recent Labs: Laboratory Last Values WBC 3.5 Th/cmm (4.8-10.8) L 12/04/17 04:50 RBC 3.06 Mil/cmm (3.80-5.80) L 12/04/17 04:50 Hgb 9.1 gm/dL (12-16) L 12/04/17 04:50 Hct 26.8 % (41.0-60) L 12/04/17 04:50 MCV 87.7 fl (80-99) 12/04/17 04:50 MCH 29.8 pg (27.0-31.0) 12/04/17 04:50 MCHC Differential 34.0 pg (28.0-36.0) 12/04/17 04:50 RDW 15.6 % (11.5-20.0) 12/04/17 04:50 Plt Count 51 Th/cmm (150-400) L 12/04/17 04:50 MPV 8.7 fl 12/04/17 04:50 Neutrophils % 44.3 % (40.0-80.0) 12/04/17 04:50 Band Neutrophils % 1 % (0-10) 12/03/17 06:22 Lymphocytes % 36.4 % (20.0-50.0) 12/04/17 04:50 Monocytes % 12.6 % (2.0-10.0) H 12/04/17 04:50 Eosinophils % 6.3 % (0.0-5.0) H 12/04/17 04:50 Basophils % 0.4 % (0.0-2.0) 12/04/17 04:50 Neutrophils (Manual) 58 % (40-80) 12/03/17 06:22 Lymphocytes 25 % (20-50) 12/03/17 06:22 Monocytes 10 % (2-10) 12/03/17 06:22 Eosinophils 6 % (0-5) H 12/03/17 06:22 Basophils 0 % (0-3) 12/03/17 06:22 Platelet Estimate DECREASED PLATELETS (NORMAL) 11/28/17 17:33 Smear Path Review 12/02/17 05:50 PT 13.7 SECONDS (9.5-11.5) H 12/02/17 05:50 INR 1.30 (0.5-1.4) 12/02/17 05:50 PTT (Actin FS) 34.1 SECONDS (26.0-38.0) 12/01/17 05:25 Sodium 131 mEq/L (136-145) L 12/03/17 06:22 Potassium 3.7 mEq/L (3.5-5.1) 12/03/17 06:22 Chloride 104 mEq/L (98-107) 12/03/17 06:22 Carbon Dioxide 23.0 mEq/L (21.0-31.0) 12/03/17 06:22 Anion Gap 7.7 (7.0-16.0) 12/03/17 06:22 BUN 3 mg/dL (7-25) L 12/03/17 06:22 Creatinine 0.6 mg/dL (0.7-1.3) L 12/03/17 06:22 Est GFR ( Amer) > 60.0 ml/min (>90) 12/03/17 06:22 Est GFR (Non-Af Amer) > 60.0 ml/min 12/03/17 06:22 BUN/Creatinine Ratio 5.0 12/03/17 06:22 Glucose 114 mg/dL (70-105) H 12/03/17 06:22 Whole Bld Lactic Acid 1.16 mmol/L (0.60-1.99) 11/28/17 17:33 Calcium 7.6 mg/dL (8.6-10.3) L 12/03/17 06:22 Total Bilirubin 0.9 mg/dL (0.3-1.0) 11/29/17 06:06 AST 22 U/L (13-39) 11/29/17 06:06 ALT 9 U/L (7-52) 11/29/17 06:06 Alkaline Phosphatase 45 U/L (34-104) 11/29/17 06:06 Creatine Kinase 43 U/L (30-223) 11/28/17 17:33 Troponin I 0.02 ng/mL (0.01-0.05) 11/28/17 17:33 B-Natriuretic Peptide 73.8 pg/mL (5.0-100.0) 11/28/17 17:33 Total Protein 5.0 gm/dL (6.0-8.3) L 11/29/17 06:06 Albumin 1.9 gm/dL (4.2-5.5) L 11/29/17 06:06 Globulin 3.1 gm/dL 11/29/17 06:06 Albumin/Globulin Ratio 0.6 (1.0-1.8) L 11/29/17 06:06 Triglycerides 63 mg/dL (<150) 11/29/17 06:06 Cholesterol 76 mg/dL (<200) 11/29/17 06:06 LDL Cholesterol Direct 45 mg/dL (75-193) L 11/29/17 06:06 HDL Cholesterol 11 mg/dL (23-92) L 11/29/17 06:06 Amylase 13 U/L (29-103) L 11/29/17 06:06 Lipase 8 U/L (11-82) L 11/29/17 06:06 Urine Source CLEAN C 11/29/17 20:55 Urine Color YELLOW 11/29/17 20:55 Urine Clarity SLIGHTLY HAZY (CLEAR) 11/29/17 20:55 Urine pH 6.5 (4.6 - 8.0) 11/29/17 20:55 Ur Specific [place] 1.025 (1.005-1.030) 11/29/17 20:55 Urine Protein NEGATIVE mg/dL (NEGATIVE) 11/29/17 20:55 Urine Glucose (UA) NEGATIVE mg/dL (NEGATIVE) 11/29/17 20:55 Urine Ketones TRACE mg/dL (NEGATIVE) 11/29/17 20:55 Urine Blood TRACE (NEGATIVE) 11/29/17 20:55 Urine Nitrate NEGATIVE (NEGATIVE) 11/29/17 20:55 Urine Bilirubin NEGATIVE (NEGATIVE) 11/29/17 20:55 Urine Urobilinogen 0.2 E.U./dL (0.2 - 1.0) 11/29/17 20:55 Ur Leukocyte Esterase NEGATIVE (NEGATIVE) 11/29/17 20:55 Urine RBC 5-10 /hpf (0-5) H 11/29/17 20:55 Urine WBC 0-2 /hpf (0-5) 11/29/17 20:55 Ur Epithelial Cells OCCASIONAL /lpf (FEW) 11/29/17 20:55 Urine Bacteria NONE SEEN /hpf (NONE SEEN) 11/29/17 20:55 Urine Mucus MODERATE /lpf (FEW) 11/29/17 20:55 Body Fluid Site ABDOMEN 11/29/17 13:40 Fluid Source PARACENTHESIS 11/29/17 13:40 Fluid Color PALE YELLOW 11/29/17 13:40 Fluid Appearance HAZY 11/29/17 13:40 Fluid WBC 12 /cumm 11/29/17 13:40 Fluid RBC 19 /cumm 11/29/17 13:40 Fluid Neutrophils 2 % 11/29/17 13:40 Fluid Lymphocytes 63 % 11/29/17 13:40 Fluid Monocytes 35 % 11/29/17 13:40 Fld Mesothelial Cells MODERATE 11/29/17 13:40 Body Fluid Clot 11/29/17 13:40 Fluid Total Protein 1.4 g/dL 11/29/17 13:40 Fluid LDH 40 U/L 11/29/17 13:40 - Physical Exam Vitals and I&O: Vital Signs Temp 97.5 F 12/04/17 11:58 Pulse 80 12/04/17 11:58 Resp 18 12/04/17 11:58 BP 120/70 12/04/17 11:58 Pulse Ox 97 12/04/17 11:58 Intake & Output 12/03/17 12/04/17 12/04/17 18:59 06:59 18:59 Intake Total 450 240 Balance 450 240 Weight (lbs) 87.09 kg 87.09 kg Intake: Oral 450 240 Other: # Voids 550 2 # Bowel Movements 2 2 Stool Characteristics Liquid Weight Source Bedscale Bedscale Active Medications: Current Medications Artificial Tears (Artificial Tears Ophth Soln) 1 drop EACH EYE QID [facility] Stop: 01/29/18 12:59 Last Admin: 12/04/17 10:59 Dose: 1 drop Dicyclomine HCl (Bentyl) 20 mg PO BID [facility] Stop: 01/28/18 16:59 Last Admin: 12/04/17 10:58 Dose: Not Given Diphenhydramine HCl (Benadryl) 25 mg PO TID [facility] Stop: 01/28/18 13:59 Last Admin: 12/04/17 10:58 Dose: Not Given Ferrous Sulfate (Iron) 325 mg PO DAILY [facility] Stop: 01/28/18 09:59 Last Admin: 12/04/17 10:58 Dose: Not Given Hydromorphone HCl (Dilaudid) 1 mg IVP Q4H PRN PRN Reason: Abdominal Pain Stop: 01/28/18 01:29 Last Admin: 12/04/17 10:48 Dose: 1 mg Hydromorphone HCl (Dilaudid) 2 mg PO Q4H PRN PRN Reason: Pain (Severe) Stop: 01/28/18 09:45 Last Admin: 12/02/17 08:01 Dose: 2 mg Hydroxyzine HCl (Atarax) 25 mg PO TID [facility]; Protocol Stop: 01/28/18 13:59 Last Admin: 12/04/17 10:58 Dose: Not Given Dextrose/Sodium Chloride (D5-0.45ns) 1,000 mls @ 75 mls/hr IV .[id number] [facility] Stop: 01/28/18 08:29 Last Admin: 12/02/17 11:48 Dose: 75 mls/hr Lactulose (Cephulac) 60 gm PO QID [facility] Stop: 01/28/18 12:59 Last Admin: 12/04/17 12:34 Dose: Not Given Levocarnitine (Carnitor) 330 mg PO BID [facility] Stop: 01/28/18 16:59 Last Admin: 12/04/17 10:59 Dose: Not Given Ondansetron HCl (Zofran) 4 mg IV Q6H PRN PRN Reason: Nausea / Vomiting Stop: 01/31/18 13:08 Last Admin: 12/04/17 10:48 Dose: 4 mg Spironolactone (Aldactone) 50 mg PO DAILY [facility] Stop: 01/29/18 09:59 Last Admin: 12/04/17 10:59 Dose: Not Given Trazodone HCl (Desyrel) 50 mg PO HS [facility]; Protocol Stop: 01/28/18 20:59 Last Admin: 12/03/17 21:05 Dose: 50 mg Triamcinolone Acetonide (Kenalog 0.1%) 1 appl TP QID [facility] Stop: 01/28/18 12:59 Last Admin: 12/04/17 11:00 Dose: Not Given Vitamin D (Vitamin D3) 2,000 iu PO DAILY [facility] Stop: 01/28/18 09:59 Last Admin: 12/04/17 10:58 Dose: Not Given General: Alert HEENT: Atraumatic Neck: Supple Cardiovascular: Regular rate Abdomen: Bowel sounds, Soft, Tender, Distended, no Hepatomegaly, no Rebound, no Mass, no Guarding Skin: no Rash - Procedures Procedures: Procedures Procedure Code Date EXCISION OF DUODENUM, ENDO, DIAGN [id number] 06/06/17 EXCISION OF STOMACH, ENDO, DIAGN [id number] 06/06/17 EXCISION OF TRANSVERSE COLON, ENDO [id number] 06/06/17 Assessment/Plan - Assessment Assessment: # Cirrhosis, 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 Decompensated by: # Ascites and hepatic encephalopathy # Abd pain # Back pain Pt is often admitted for back and abd pain. He had EGD/colo in 06/2017 that showed no varices, gastritis, hemorrhoids, and one transverse colon polyp ( tubular adenoma). At current time, he has massive ascites, and is s/p 4L paracentesis on 11/29. No SBP. However, he also has had a long history of abd pain, and opiate dependence. 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 Plan: - paracentesis rescheduled for tomorrow given availability of radiologist - cont lasix and aldactone. Increase as tolerated by electrolytes - lactulose bid to prevent encephalopathy and constipation - HCC screening is up to date, he had CT scan 10/2017 that was negative - Not due for variceal screening until 06/2018 - pain management as per primary - not due for colonoscopy until 06/2020 unless he has any GI bleeding - low salt diet recommended
--- NOTE | 2017-12-04 14:50 | General Progress Note ---
Subjective - Review of Systems Service Date: 12/04/17 Subjective: awake, agitated c/o abd pain Objective - Results Result Diagrams: 12/04/17 04:50 12/03/17 06:22 Recent Labs: Laboratory Last Values WBC 3.5 Th/cmm (4.8-10.8) L 12/04/17 04:50 RBC 3.06 Mil/cmm (3.80-5.80) L 12/04/17 04:50 Hgb 9.1 gm/dL (12-16) L 12/04/17 04:50 Hct 26.8 % (41.0-60) L 12/04/17 04:50 MCV 87.7 fl (80-99) 12/04/17 04:50 MCH 29.8 pg (27.0-31.0) 12/04/17 04:50 MCHC Differential 34.0 pg (28.0-36.0) 12/04/17 04:50 RDW 15.6 % (11.5-20.0) 12/04/17 04:50 Plt Count 51 Th/cmm (150-400) L 12/04/17 04:50 MPV 8.7 fl 12/04/17 04:50 Neutrophils % 44.3 % (40.0-80.0) 12/04/17 04:50 Band Neutrophils % 1 % (0-10) 12/03/17 06:22 Lymphocytes % 36.4 % (20.0-50.0) 12/04/17 04:50 Monocytes % 12.6 % (2.0-10.0) H 12/04/17 04:50 Eosinophils % 6.3 % (0.0-5.0) H 12/04/17 04:50 Basophils % 0.4 % (0.0-2.0) 12/04/17 04:50 Neutrophils (Manual) 58 % (40-80) 12/03/17 06:22 Lymphocytes 25 % (20-50) 12/03/17 06:22 Monocytes 10 % (2-10) 12/03/17 06:22 Eosinophils 6 % (0-5) H 12/03/17 06:22 Basophils 0 % (0-3) 12/03/17 06:22 Platelet Estimate DECREASED PLATELETS (NORMAL) 11/28/17 17:33 Smear Path Review 12/02/17 05:50 PT 13.7 SECONDS (9.5-11.5) H 12/02/17 05:50 INR 1.30 (0.5-1.4) 12/02/17 05:50 PTT (Actin FS) 34.1 SECONDS (26.0-38.0) 12/01/17 05:25 Sodium 131 mEq/L (136-145) L 12/03/17 06:22 Potassium 3.7 mEq/L (3.5-5.1) 12/03/17 06:22 Chloride 104 mEq/L (98-107) 12/03/17 06:22 Carbon Dioxide 23.0 mEq/L (21.0-31.0) 12/03/17 06:22 Anion Gap 7.7 (7.0-16.0) 12/03/17 06:22 BUN 3 mg/dL (7-25) L 12/03/17 06:22 Creatinine 0.6 mg/dL (0.7-1.3) L 12/03/17 06:22 Est GFR ( Amer) > 60.0 ml/min (>90) 12/03/17 06:22 Est GFR (Non-Af Amer) > 60.0 ml/min 12/03/17 06:22 BUN/Creatinine Ratio 5.0 12/03/17 06:22 Glucose 114 mg/dL (70-105) H 12/03/17 06:22 Whole Bld Lactic Acid 1.16 mmol/L (0.60-1.99) 11/28/17 17:33 Calcium 7.6 mg/dL (8.6-10.3) L 12/03/17 06:22 Total Bilirubin 0.9 mg/dL (0.3-1.0) 11/29/17 06:06 AST 22 U/L (13-39) 11/29/17 06:06 ALT 9 U/L (7-52) 11/29/17 06:06 Alkaline Phosphatase 45 U/L (34-104) 11/29/17 06:06 Creatine Kinase 43 U/L (30-223) 11/28/17 17:33 Troponin I 0.02 ng/mL (0.01-0.05) 11/28/17 17:33 B-Natriuretic Peptide 73.8 pg/mL (5.0-100.0) 11/28/17 17:33 Total Protein 5.0 gm/dL (6.0-8.3) L 11/29/17 06:06 Albumin 1.9 gm/dL (4.2-5.5) L 11/29/17 06:06 Globulin 3.1 gm/dL 11/29/17 06:06 Albumin/Globulin Ratio 0.6 (1.0-1.8) L 11/29/17 06:06 Triglycerides 63 mg/dL (<150) 11/29/17 06:06 Cholesterol 76 mg/dL (<200) 11/29/17 06:06 LDL Cholesterol Direct 45 mg/dL (75-193) L 11/29/17 06:06 HDL Cholesterol 11 mg/dL (23-92) L 11/29/17 06:06 Amylase 13 U/L (29-103) L 11/29/17 06:06 Lipase 8 U/L (11-82) L 11/29/17 06:06 Urine Source CLEAN C 11/29/17 20:55 Urine Color YELLOW 11/29/17 20:55 Urine Clarity SLIGHTLY HAZY (CLEAR) 11/29/17 20:55 Urine pH 6.5 (4.6 - 8.0) 11/29/17 20:55 Ur Specific [place] 1.025 (1.005-1.030) 11/29/17 20:55 Urine Protein NEGATIVE mg/dL (NEGATIVE) 11/29/17 20:55 Urine Glucose (UA) NEGATIVE mg/dL (NEGATIVE) 11/29/17 20:55 Urine Ketones TRACE mg/dL (NEGATIVE) 11/29/17 20:55 Urine Blood TRACE (NEGATIVE) 11/29/17 20:55 Urine Nitrate NEGATIVE (NEGATIVE) 11/29/17 20:55 Urine Bilirubin NEGATIVE (NEGATIVE) 11/29/17 20:55 Urine Urobilinogen 0.2 E.U./dL (0.2 - 1.0) 11/29/17 20:55 Ur Leukocyte Esterase NEGATIVE (NEGATIVE) 11/29/17 20:55 Urine RBC 5-10 /hpf (0-5) H 11/29/17 20:55 Urine WBC 0-2 /hpf (0-5) 11/29/17 20:55 Ur Epithelial Cells OCCASIONAL /lpf (FEW) 11/29/17 20:55 Urine Bacteria NONE SEEN /hpf (NONE SEEN) 11/29/17 20:55 Urine Mucus MODERATE /lpf (FEW) 11/29/17 20:55 Body Fluid Site ABDOMEN 11/29/17 13:40 Fluid Source PARACENTHESIS 11/29/17 13:40 Fluid Color PALE YELLOW 11/29/17 13:40 Fluid Appearance HAZY 11/29/17 13:40 Fluid WBC 12 /cumm 11/29/17 13:40 Fluid RBC 19 /cumm 11/29/17 13:40 Fluid Neutrophils 2 % 11/29/17 13:40 Fluid Lymphocytes 63 % 11/29/17 13:40 Fluid Monocytes 35 % 11/29/17 13:40 Fld Mesothelial Cells MODERATE 11/29/17 13:40 Body Fluid Clot 11/29/17 13:40 Fluid Total Protein 1.4 g/dL 11/29/17 13:40 Fluid LDH 40 U/L 11/29/17 13:40 - Physical Exam Vitals and I&O: Vital Signs Temp 97.5 F 12/04/17 11:58 Pulse 80 12/04/17 11:58 Resp 18 12/04/17 11:58 BP 120/70 12/04/17 11:58 Pulse Ox 97 12/04/17 11:58 Intake & Output 12/03/17 12/04/17 12/04/17 18:59 06:59 18:59 Intake Total 450 240 Balance 450 240 Weight (lbs) 87.09 kg 87.09 kg Intake: Oral 450 240 Other: # Voids 550 2 # Bowel Movements 2 2 Stool Characteristics Liquid Weight Source Bedscale Bedscale Active Medications: Current Medications Artificial Tears (Artificial Tears Ophth Soln) 1 drop EACH EYE QID [facility] Stop: 01/29/18 12:59 Last Admin: 12/04/17 13:48 Dose: 1 drop Dicyclomine HCl (Bentyl) 20 mg PO BID [facility] Stop: 01/28/18 16:59 Last Admin: 12/04/17 10:58 Dose: Not Given Diphenhydramine HCl (Benadryl) 25 mg PO TID [facility] Stop: 01/28/18 13:59 Last Admin: 12/04/17 14:37 Dose: 25 mg Ferrous Sulfate (Iron) 325 mg PO DAILY [facility] Stop: 01/28/18 09:59 Last Admin: 12/04/17 10:58 Dose: Not Given Hydromorphone HCl (Dilaudid) 1 mg IVP Q4H PRN PRN Reason: Abdominal Pain Stop: 01/28/18 01:29 Last Admin: 12/04/17 10:48 Dose: 1 mg Hydromorphone HCl (Dilaudid) 2 mg PO Q4H PRN PRN Reason: Pain (Severe) Stop: 01/28/18 09:45 Last Admin: 12/02/17 08:01 Dose: 2 mg Hydroxyzine HCl (Atarax) 25 mg PO TID [facility]; Protocol Stop: 01/28/18 13:59 Last Admin: 12/04/17 14:37 Dose: 25 mg Dextrose/Sodium Chloride (D5-0.45ns) 1,000 mls @ 75 mls/hr IV .[id number] [facility] Stop: 01/28/18 08:29 Last Admin: 12/02/17 11:48 Dose: 75 mls/hr Lactulose (Cephulac) 60 gm PO QID [facility] Stop: 01/28/18 12:59 Last Admin: 12/04/17 12:34 Dose: Not Given Levocarnitine (Carnitor) 330 mg PO BID [facility] Stop: 01/28/18 16:59 Last Admin: 12/04/17 10:59 Dose: Not Given Ondansetron HCl (Zofran) 4 mg IV Q6H PRN PRN Reason: Nausea / Vomiting Stop: 01/31/18 13:08 Last Admin: 12/04/17 10:48 Dose: 4 mg Spironolactone (Aldactone) 50 mg PO DAILY [facility] Stop: 01/29/18 09:59 Last Admin: 12/04/17 10:59 Dose: Not Given Trazodone HCl (Desyrel) 50 mg PO HS [facility]; Protocol Stop: 01/28/18 20:59 Last Admin: 12/03/17 21:05 Dose: 50 mg Triamcinolone Acetonide (Kenalog 0.1%) 1 appl TP QID [facility] Stop: 01/28/18 12:59 Last Admin: 12/04/17 13:48 Dose: 1 appl Vitamin D (Vitamin D3) 2,000 iu PO DAILY [facility] Stop: 01/28/18 09:59 Last Admin: 12/04/17 10:58 Dose: Not Given General: Alert HEENT: Atraumatic Neck: Supple Cardiovascular: Regular rate Abdomen: Bowel sounds, Soft, Tender, Distended, no Hepatomegaly, no Rebound, no Mass, no Guarding Skin: no Rash - Procedures Procedures: Procedures Procedure Code Date EXCISION OF DUODENUM, ENDO, DIAGN [id number] 06/06/17 EXCISION OF STOMACH, ENDO, DIAGN [id number] 06/06/17 EXCISION OF TRANSVERSE COLON, ENDO [id number] 06/06/17 Assessment/Plan - Assessment Assessment: * hep c and cirrhosis * Vitamin k deficiency * thrombocytopenia worse * Abd. pain per GI vitamin k supplementation and monitoring coags and plt 12/01: coags better on vitamin k. plt and hgb stable 12/02: lab noted. plt better. hgb stable 12/04: plt improving. hgb stable. coagulation better. discontinue vit k Nutritional Asmnt/Malnutr-PDOC - Dietary Evaluation Malnutrition Findings (Please click <Entered> for more info): Nutritional Asmnt/Malnutrition Start: 11/29/17 17: 35 Text: Status: Complete Freq: Protocol: Document 11/29/17 17:35 LCHENG (Rec: 11/29/17 17:41 [email or web address] [email or web address]) Nutritional Asmnt/Malnutrition Patient General Information Nutritional Screening High Risk Diagnosis abd apin, intractable pain, gastritis Pertinent Medical Hx/Surgical Hx hepatitis B, psychosis, thrombocytopeni, HTN, DM, asthma/COPD, PUD/GERD, depresion, schizophrenia, bipolar Subjective Information Pt seen in room having abd ultrasound, not appropirate for interview at this time. Current Diet Order/ Nutrition Support mech soft chopped, boost TID Pertinent Medications D5-0.45ns, iron, vit D3 Pertinent Labs 11/29 Na 134, BUN 5, Cr 0.6, Ca 7.7, glucose 91 Nutritional Hx/Data Height 1.83 m Height (Calculated Centimeters) 182.9 Current Weight (lbs) 90.718 kg Weight (Calculated Kilograms) 90.7 Weight (Calculated Grams) 77245.5 [place] Body Weight 178 Body Mass Index (BMI) 27.1 Weight Status Overweight GI Symptoms GI Symptoms None Last BM not indicated Difficult in: None Skin Integrity/Comment: bruise to right and left upper arm Estimated Nutritional Goals BEE in Kcals: Using Current wt Calories/Kcals/Kg 23-27 Kcals Calculated 6373-5275 Protein: Using Current wt Protein g/k.8-1 Protein Calculated 72-91 Fluid: ml 2092-2456ml (1ml/kcal) Nutritional Problem No current Nutrition Prob Problem N/A Intervention/Recommendation Comments 1. Continue with current diet with supplements as ordered. 2. Monitor PO intake, wt, labs and skin integrity 3. F/U as high risk in 2-3 days, 12/01-12/02 Expected Outcomes/Goals Expected Outcomes/Goals 1. PO intake to meet at least 75% of nutritional needs. 2. Wt stability, skin to remain intact, labs to approach WNL.
[2017-12-04] MEDS: D5-0.45NS 1,000 ML IV SCH (16:28)
--- NOTE | 2017-12-04 18:27 | Infectious Disease Prog Note ---
Infectious Disease Subjective - Review of Systems Service Date: 12/04/17 Subjective: Patient is to complain nausea vomiting. c/o abdominal pain and taking pain medication. Infectious Disease Objective - Results Result Diagrams: 12/04/17 04:50 12/03/17 06:22 Recent Labs: Laboratory Last Values WBC 3.5 Th/cmm (4.8-10.8) L 12/04/17 04:50 RBC 3.06 Mil/cmm (3.80-5.80) L 12/04/17 04:50 Hgb 9.1 gm/dL (12-16) L 12/04/17 04:50 Hct 26.8 % (41.0-60) L 12/04/17 04:50 MCV 87.7 fl (80-99) 12/04/17 04:50 MCH 29.8 pg (27.0-31.0) 12/04/17 04:50 MCHC Differential 34.0 pg (28.0-36.0) 12/04/17 04:50 RDW 15.6 % (11.5-20.0) 12/04/17 04:50 Plt Count 51 Th/cmm (150-400) L 12/04/17 04:50 MPV 8.7 fl 12/04/17 04:50 Neutrophils % 44.3 % (40.0-80.0) 12/04/17 04:50 Band Neutrophils % 1 % (0-10) 12/03/17 06:22 Lymphocytes % 36.4 % (20.0-50.0) 12/04/17 04:50 Monocytes % 12.6 % (2.0-10.0) H 12/04/17 04:50 Eosinophils % 6.3 % (0.0-5.0) H 12/04/17 04:50 Basophils % 0.4 % (0.0-2.0) 12/04/17 04:50 Neutrophils (Manual) 58 % (40-80) 12/03/17 06:22 Lymphocytes 25 % (20-50) 12/03/17 06:22 Monocytes 10 % (2-10) 12/03/17 06:22 Eosinophils 6 % (0-5) H 12/03/17 06:22 Basophils 0 % (0-3) 12/03/17 06:22 Platelet Estimate DECREASED PLATELETS (NORMAL) 11/28/17 17:33 Smear Path Review 12/02/17 05:50 PT 13.7 SECONDS (9.5-11.5) H 12/02/17 05:50 INR 1.30 (0.5-1.4) 12/02/17 05:50 PTT (Actin FS) 34.1 SECONDS (26.0-38.0) 12/01/17 05:25 Sodium 131 mEq/L (136-145) L 12/03/17 06:22 Potassium 3.7 mEq/L (3.5-5.1) 12/03/17 06:22 Chloride 104 mEq/L (98-107) 12/03/17 06:22 Carbon Dioxide 23.0 mEq/L (21.0-31.0) 12/03/17 06:22 Anion Gap 7.7 (7.0-16.0) 12/03/17 06:22 BUN 3 mg/dL (7-25) L 12/03/17 06:22 Creatinine 0.6 mg/dL (0.7-1.3) L 12/03/17 06:22 Est GFR ( Amer) > 60.0 ml/min (>90) 12/03/17 06:22 Est GFR (Non-Af Amer) > 60.0 ml/min 12/03/17 06:22 BUN/Creatinine Ratio 5.0 12/03/17 06:22 Glucose 114 mg/dL (70-105) H 12/03/17 06:22 Whole Bld Lactic Acid 1.16 mmol/L (0.60-1.99) 11/28/17 17:33 Calcium 7.6 mg/dL (8.6-10.3) L 12/03/17 06:22 Total Bilirubin 0.9 mg/dL (0.3-1.0) 11/29/17 06:06 AST 22 U/L (13-39) 11/29/17 06:06 ALT 9 U/L (7-52) 11/29/17 06:06 Alkaline Phosphatase 45 U/L (34-104) 11/29/17 06:06 Creatine Kinase 43 U/L (30-223) 11/28/17 17:33 Troponin I 0.02 ng/mL (0.01-0.05) 11/28/17 17:33 B-Natriuretic Peptide 73.8 pg/mL (5.0-100.0) 11/28/17 17:33 Total Protein 5.0 gm/dL (6.0-8.3) L 11/29/17 06:06 Albumin 1.9 gm/dL (4.2-5.5) L 11/29/17 06:06 Globulin 3.1 gm/dL 11/29/17 06:06 Albumin/Globulin Ratio 0.6 (1.0-1.8) L 11/29/17 06:06 Triglycerides 63 mg/dL (<150) 11/29/17 06:06 Cholesterol 76 mg/dL (<200) 11/29/17 06:06 LDL Cholesterol Direct 45 mg/dL (75-193) L 11/29/17 06:06 HDL Cholesterol 11 mg/dL (23-92) L 11/29/17 06:06 Amylase 13 U/L (29-103) L 11/29/17 06:06 Lipase 8 U/L (11-82) L 11/29/17 06:06 Urine Source CLEAN C 11/29/17 20:55 Urine Color YELLOW 11/29/17 20:55 Urine Clarity SLIGHTLY HAZY (CLEAR) 11/29/17 20:55 Urine pH 6.5 (4.6 - 8.0) 11/29/17 20:55 Ur Specific [place] 1.025 (1.005-1.030) 11/29/17 20:55 Urine Protein NEGATIVE mg/dL (NEGATIVE) 11/29/17 20:55 Urine Glucose (UA) NEGATIVE mg/dL (NEGATIVE) 11/29/17 20:55 Urine Ketones TRACE mg/dL (NEGATIVE) 11/29/17 20:55 Urine Blood TRACE (NEGATIVE) 11/29/17 20:55 Urine Nitrate NEGATIVE (NEGATIVE) 11/29/17 20:55 Urine Bilirubin NEGATIVE (NEGATIVE) 11/29/17 20:55 Urine Urobilinogen 0.2 E.U./dL (0.2 - 1.0) 11/29/17 20:55 Ur Leukocyte Esterase NEGATIVE (NEGATIVE) 11/29/17 20:55 Urine RBC 5-10 /hpf (0-5) H 11/29/17 20:55 Urine WBC 0-2 /hpf (0-5) 11/29/17 20:55 Ur Epithelial Cells OCCASIONAL /lpf (FEW) 11/29/17 20:55 Urine Bacteria NONE SEEN /hpf (NONE SEEN) 11/29/17 20:55 Urine Mucus MODERATE /lpf (FEW) 11/29/17 20:55 Body Fluid Site ABDOMEN 11/29/17 13:40 Fluid Source PARACENTHESIS 11/29/17 13:40 Fluid Color PALE YELLOW 11/29/17 13:40 Fluid Appearance HAZY 11/29/17 13:40 Fluid WBC 12 /cumm 11/29/17 13:40 Fluid RBC 19 /cumm 11/29/17 13:40 Fluid Neutrophils 2 % 11/29/17 13:40 Fluid Lymphocytes 63 % 11/29/17 13:40 Fluid Monocytes 35 % 11/29/17 13:40 Fld Mesothelial Cells MODERATE 11/29/17 13:40 Body Fluid Clot 11/29/17 13:40 Fluid Total Protein 1.4 g/dL 11/29/17 13:40 Fluid LDH 40 U/L 11/29/17 13:40 - Physical Exam Vitals and I&O: Vital Signs Temp 97.3 F 12/04/17 15:23 Pulse 78 12/04/17 15:23 Resp 17 12/04/17 15:54 BP 126/80 12/04/17 15:23 Pulse Ox 98 12/04/17 15:23 Intake & Output 12/03/17 12/04/17 12/04/17 18:59 06:59 18:59 Intake Total 450 240 Balance 450 240 Weight (lbs) 87.09 kg 87.09 kg Intake: Oral 450 240 Other: # Voids 550 2 # Bowel Movements 2 2 Stool Characteristics Liquid Weight Source Bedscale Bedscale Active Medications: Current Medications Artificial Tears (Artificial Tears Ophth Soln) 1 drop EACH EYE QID [facility] Stop: 01/29/18 12:59 Last Admin: 12/04/17 16:18 Dose: 1 drop Dicyclomine HCl (Bentyl) 20 mg PO BID [facility] Stop: 01/28/18 16:59 Last Admin: 12/04/17 16:16 Dose: 20 mg Diphenhydramine HCl (Benadryl) 25 mg PO TID [facility] Stop: 01/28/18 13:59 Last Admin: 12/04/17 14:37 Dose: 25 mg Ferrous Sulfate (Iron) 325 mg PO DAILY [facility] Stop: 01/28/18 09:59 Last Admin: 12/04/17 10:58 Dose: Not Given Hydromorphone HCl (Dilaudid) 1 mg IVP Q4H PRN PRN Reason: Abdominal Pain Stop: 01/28/18 01:29 Last Admin: 12/04/17 14:50 Dose: 1 mg Hydromorphone HCl (Dilaudid) 2 mg PO Q4H PRN PRN Reason: Pain (Severe) Stop: 01/28/18 09:45 Last Admin: 12/02/17 08:01 Dose: 2 mg Hydroxyzine HCl (Atarax) 25 mg PO TID [facility]; Protocol Stop: 01/28/18 13:59 Last Admin: 12/04/17 14:37 Dose: 25 mg Dextrose/Sodium Chloride (D5-0.45ns) 1,000 mls @ 75 mls/hr IV .[id number] [facility] Stop: 01/28/18 08:29 Last Admin: 12/04/17 16:28 Dose: 75 mls/hr Lactulose (Cephulac) 60 gm PO QID [facility] Stop: 01/28/18 12:59 Last Admin: 12/04/17 16:22 Dose: Not Given Levocarnitine (Carnitor) 330 mg PO BID [facility] Stop: 01/28/18 16:59 Last Admin: 12/04/17 16:17 Dose: 330 mg Ondansetron HCl (Zofran) 4 mg IV Q6H PRN PRN Reason: Nausea / Vomiting Stop: 01/31/18 13:08 Last Admin: 12/04/17 10:48 Dose: 4 mg Spironolactone (Aldactone) 50 mg PO DAILY [facility] Stop: 01/29/18 09:59 Last Admin: 12/04/17 10:59 Dose: Not Given Trazodone HCl (Desyrel) 50 mg PO HS [facility]; Protocol Stop: 01/28/18 20:59 Last Admin: 12/03/17 21:05 Dose: 50 mg Triamcinolone Acetonide (Kenalog 0.1%) 1 appl TP QID [facility] Stop: 01/28/18 12:59 Last Admin: 12/04/17 16:18 Dose: Not Given Vitamin D (Vitamin D3) 2,000 iu PO DAILY [facility] Stop: 01/28/18 09:59 Last Admin: 12/04/17 10:58 Dose: Not Given General: no acute distress, cachectic HEENT: atraumatic, normocephalic, PERRLA, EOMI, moist mucous membrane Neck: supple, no thyromegaly Cardiovascular: S1S2, regular Lungs: clear to auscultation bilaterally, clear to percussion Abdomen: soft, no tender, no distended, no mass Extremities: no cyanosis, no clubbing, no edema Neurological: awake, alert, oriented Skin: intact - Procedures Procedures: Procedures Procedure Code Date EXCISION OF DUODENUM, ENDO, DIAGN [id number] 06/06/17 EXCISION OF STOMACH, ENDO, DIAGN [id number] 06/06/17 EXCISION OF TRANSVERSE COLON, ENDO [id number] 06/06/17 Infectious Disease Assmt/Plan - Assessment Assessment: 1. Pancytopenia secondary to liver disease. 2. History of ORIF related to me which is treated. 3. Cirrhosis. Treated 4. Nausea, vomting and abdominal pain 5. Hepatitis C. 6. Hypertension. 7. Chronic pain syndrome. 8. Asthma, chronic obstructive pulmonary disease. 9. Dyslipidemia. 10. Peptic ulcer disease, gastroesophageal reflux disease. 11. Dementia. 12. Neuropathy. 13. History of methicillin-resistant Staphylococcus aureus infection of the left hip. Left hip prosthesis treated, no signs and symptoms of infection at this time. 14. History of open reduction and internal fixation of the left hip. - Plan Plan: Continue same treatment. Nutritional Asmnt/Malnutr-PDOC - Dietary Evaluation Malnutrition Findings (Please click <Entered> for more info): Nutritional Asmnt/Malnutrition Start: 11/29/17 17: 35 Text: Status: Complete Freq: Protocol: Document 11/29/17 17:35 LCHENG (Rec: 11/29/17 17:41 LCHENG [id number]) Nutritional Asmnt/Malnutrition Patient General Information Nutritional Screening High Risk Diagnosis abd apin, intractable pain, gastritis Pertinent Medical Hx/Surgical Hx hepatitis B, psychosis, thrombocytopeni, HTN, DM, asthma/COPD, PUD/GERD, depresion, schizophrenia, bipolar Subjective Information Pt seen in room having abd ultrasound, not appropirate for interview at this time. Current Diet Order/ Nutrition Support mech soft chopped, boost TID Pertinent Medications D5-0.45ns, iron, vit D3 Pertinent Labs 11/29 Na 134, BUN 5, Cr 0.6, Ca 7.7, glucose 91 Nutritional Hx/Data Height 1.83 m Height (Calculated Centimeters) 182.9 Current Weight (lbs) 90.718 kg Weight (Calculated Kilograms) 90.7 Weight (Calculated Grams) 46004.5 [place] Body Weight 178 Body Mass Index (BMI) 27.1 Weight Status Overweight GI Symptoms GI Symptoms None Last BM not indicated Difficult in: None Skin Integrity/Comment: bruise to right and left upper arm Estimated Nutritional Goals BEE in Kcals: Using Current wt Calories/Kcals/Kg 23-27 Kcals Calculated 2375-0333 Protein: Using Current wt Protein g/k.8-1 Protein Calculated 72- Fluid: ml 2093-2457ml (1ml/kcal) Nutritional Problem No current Nutrition Prob Problem N/A Intervention/Recommendation Comments 1. Continue with current diet with supplements as ordered. 2. Monitor PO intake, wt, labs and skin integrity 3. F/U as high risk in 2-3 days, 12/01-12/02 Expected Outcomes/Goals Expected Outcomes/Goals 1. PO intake to meet at least 75% of nutritional needs. 2. Wt stability, skin to remain intact, labs to approach WNL.
[2017-12-05] MEDS: Triamcinolone Acetonide 0.1% Cream 15 gm TP SCH ×4 (02:59→16:01)
[2017-12-05] MEDS: HYDROmorphone 2 mg/mL 1mL Vial IVP PRN ×5 (04:28→20:33)
[2017-12-05] MEDS: Dicyclomine 10 mg Cap PO SCH ×2 (09:11→17:09)
[2017-12-05] MEDS: Vitamin D3 2,000 IU SGL PO SCH (09:11)
[2017-12-05] MEDS: Polyvinyl Alcohol Ophth Soln 15 mL Bottle EACH EYE SCH ×3 (09:11→16:01)
[2017-12-05] MEDS: Ferrous Sulfate 325 MG TAB PO SCH (09:11)
[2017-12-05] MEDS: Lactulose 10 Gm/15 mL 30mL UDC PO SCH ×3 (09:11→16:01)
--- NOTE | 2017-12-05 10:58 | Diagnostic Imaging Report ---
Abdominal Ultrasound (Limited) HISTORY: Ascites Limited sonographic sector images obtained over the abdomen. The exam demonstrates a moderate amount of ascites. Detailed evaluation of the intra-abdominal organs not performed at this time. IMPRESSION: Ascites
--- NOTE | 2017-12-05 13:43 | Infectious Disease Prog Note ---
Infectious Disease Subjective - Review of Systems Service Date: 12/05/17 Subjective: Patient complains nausea vomiting. c/o abdominal pain and taking pain medication. Infectious Disease Objective - Results Result Diagrams: 12/04/17 04:50 12/03/17 06:22 Recent Labs: Laboratory Last Values WBC 3.5 Th/cmm (4.8-10.8) L 12/04/17 04:50 RBC 3.06 Mil/cmm (3.80-5.80) L 12/04/17 04:50 Hgb 9.1 gm/dL (12-16) L 12/04/17 04:50 Hct 26.8 % (41.0-60) L 12/04/17 04:50 MCV 87.7 fl (80-99) 12/04/17 04:50 MCH 29.8 pg (27.0-31.0) 12/04/17 04:50 MCHC Differential 34.0 pg (28.0-36.0) 12/04/17 04:50 RDW 15.6 % (11.5-20.0) 12/04/17 04:50 Plt Count 51 Th/cmm (150-400) L 12/04/17 04:50 MPV 8.7 fl 12/04/17 04:50 Neutrophils % 44.3 % (40.0-80.0) 12/04/17 04:50 Band Neutrophils % 1 % (0-10) 12/03/17 06:22 Lymphocytes % 36.4 % (20.0-50.0) 12/04/17 04:50 Monocytes % 12.6 % (2.0-10.0) H 12/04/17 04:50 Eosinophils % 6.3 % (0.0-5.0) H 12/04/17 04:50 Basophils % 0.4 % (0.0-2.0) 12/04/17 04:50 Neutrophils (Manual) 58 % (40-80) 12/03/17 06:22 Lymphocytes 25 % (20-50) 12/03/17 06:22 Monocytes 10 % (2-10) 12/03/17 06:22 Eosinophils 6 % (0-5) H 12/03/17 06:22 Basophils 0 % (0-3) 12/03/17 06:22 Platelet Estimate DECREASED PLATELETS (NORMAL) 11/28/17 17:33 Smear Path Review 12/02/17 05:50 PT 13.7 SECONDS (9.5-11.5) H 12/02/17 05:50 INR 1.30 (0.5-1.4) 12/02/17 05:50 PTT (Actin FS) 34.1 SECONDS (26.0-38.0) 12/01/17 05:25 Sodium 131 mEq/L (136-145) L 12/03/17 06:22 Potassium 3.7 mEq/L (3.5-5.1) 12/03/17 06:22 Chloride 104 mEq/L (98-107) 12/03/17 06:22 Carbon Dioxide 23.0 mEq/L (21.0-31.0) 12/03/17 06:22 Anion Gap 7.7 (7.0-16.0) 12/03/17 06:22 BUN 3 mg/dL (7-25) L 12/03/17 06:22 Creatinine 0.6 mg/dL (0.7-1.3) L 12/03/17 06:22 Est GFR ( Amer) > 60.0 ml/min (>90) 12/03/17 06:22 Est GFR (Non-Af Amer) > 60.0 ml/min 12/03/17 06:22 BUN/Creatinine Ratio 5.0 12/03/17 06:22 Glucose 114 mg/dL (70-105) H 12/03/17 06:22 Whole Bld Lactic Acid 1.16 mmol/L (0.60-1.99) 11/28/17 17:33 Calcium 7.6 mg/dL (8.6-10.3) L 12/03/17 06:22 Total Bilirubin 0.9 mg/dL (0.3-1.0) 11/29/17 06:06 AST 22 U/L (13-39) 11/29/17 06:06 ALT 9 U/L (7-52) 11/29/17 06:06 Alkaline Phosphatase 45 U/L (34-104) 11/29/17 06:06 Creatine Kinase 43 U/L (30-223) 11/28/17 17:33 Troponin I 0.02 ng/mL (0.01-0.05) 11/28/17 17:33 B-Natriuretic Peptide 73.8 pg/mL (5.0-100.0) 11/28/17 17:33 Total Protein 5.0 gm/dL (6.0-8.3) L 11/29/17 06:06 Albumin 1.9 gm/dL (4.2-5.5) L 11/29/17 06:06 Globulin 3.1 gm/dL 11/29/17 06:06 Albumin/Globulin Ratio 0.6 (1.0-1.8) L 11/29/17 06:06 Triglycerides 63 mg/dL (<150) 11/29/17 06:06 Cholesterol 76 mg/dL (<200) 11/29/17 06:06 LDL Cholesterol Direct 45 mg/dL (75-193) L 11/29/17 06:06 HDL Cholesterol 11 mg/dL (23-92) L 11/29/17 06:06 Amylase 13 U/L (29-103) L 11/29/17 06:06 Lipase 8 U/L (11-82) L 11/29/17 06:06 Urine Source CLEAN C 11/29/17 20:55 Urine Color YELLOW 11/29/17 20:55 Urine Clarity SLIGHTLY HAZY (CLEAR) 11/29/17 20:55 Urine pH 6.5 (4.6 - 8.0) 11/29/17 20:55 Ur Specific [place] 1.025 (1.005-1.030) 11/29/17 20:55 Urine Protein NEGATIVE mg/dL (NEGATIVE) 11/29/17 20:55 Urine Glucose (UA) NEGATIVE mg/dL (NEGATIVE) 11/29/17 20:55 Urine Ketones TRACE mg/dL (NEGATIVE) 11/29/17 20:55 Urine Blood TRACE (NEGATIVE) 11/29/17 20:55 Urine Nitrate NEGATIVE (NEGATIVE) 11/29/17 20:55 Urine Bilirubin NEGATIVE (NEGATIVE) 11/29/17 20:55 Urine Urobilinogen 0.2 E.U./dL (0.2 - 1.0) 11/29/17 20:55 Ur Leukocyte Esterase NEGATIVE (NEGATIVE) 11/29/17 20:55 Urine RBC 5-10 /hpf (0-5) H 11/29/17 20:55 Urine WBC 0-2 /hpf (0-5) 11/29/17 20:55 Ur Epithelial Cells OCCASIONAL /lpf (FEW) 11/29/17 20:55 Urine Bacteria NONE SEEN /hpf (NONE SEEN) 11/29/17 20:55 Urine Mucus MODERATE /lpf (FEW) 11/29/17 20:55 Body Fluid Site ABDOMEN 11/29/17 13:40 Fluid Source PARACENTHESIS 11/29/17 13:40 Fluid Color PALE YELLOW 11/29/17 13:40 Fluid Appearance HAZY 11/29/17 13:40 Fluid WBC 12 /cumm 11/29/17 13:40 Fluid RBC 19 /cumm 11/29/17 13:40 Fluid Neutrophils 2 % 11/29/17 13:40 Fluid Lymphocytes 63 % 11/29/17 13:40 Fluid Monocytes 35 % 11/29/17 13:40 Fld Mesothelial Cells MODERATE 11/29/17 13:40 Body Fluid Clot 11/29/17 13:40 Fluid Total Protein 1.4 g/dL 11/29/17 13:40 Fluid LDH 40 U/L 11/29/17 13:40 - Physical Exam Vitals and I&O: Vital Signs Temp 98.4 F 12/05/17 11:55 Pulse 67 12/05/17 11:55 Resp 18 12/05/17 11:55 BP 113/64 12/05/17 11:55 Pulse Ox 94 12/05/17 11:55 Intake & Output 12/04/17 12/05/17 12/05/17 18:59 06:59 18:59 Intake Total 450 100 Balance 450 100 Weight (lbs) 87.09 kg 87.09 kg Intake: Oral 450 100 Other: # Voids 2 # Bowel Movements 1 Stool Characteristics Liquid Weight Source Bedscale Estimated Active Medications: Current Medications Artificial Tears (Artificial Tears Ophth Soln) 1 drop EACH EYE QID [facility] Stop: 01/29/18 12:59 Last Admin: 12/05/17 12:38 Dose: Not Given Dicyclomine HCl (Bentyl) 20 mg PO BID [facility] Stop: 01/28/18 16:59 Last Admin: 12/05/17 09:11 Dose: Not Given Diphenhydramine HCl (Benadryl) 25 mg PO TID [facility] Stop: 01/28/18 13:59 Last Admin: 12/05/17 09:11 Dose: Not Given Ferrous Sulfate (Iron) 325 mg PO DAILY [facility] Stop: 01/28/18 09:59 Last Admin: 12/05/17 09:11 Dose: Not Given Hydromorphone HCl (Dilaudid) 2 mg IVP Q4H PRN PRN Reason: Pain (Severe) Stop: 02/02/18 22:08 Last Admin: 12/05/17 13:26 Dose: 2 mg Hydroxyzine HCl (Atarax) 25 mg PO TID [facility]; Protocol Stop: 01/28/18 13:59 Last Admin: 12/05/17 09:11 Dose: Not Given Dextrose/Sodium Chloride (D5-0.45ns) 1,000 mls @ 75 mls/hr IV .[id number] [facility] Stop: 01/28/18 08:29 Last Admin: 12/04/17 16:28 Dose: 75 mls/hr Lactulose (Cephulac) 60 gm PO QID [facility] Stop: 01/28/18 12:59 Last Admin: 12/05/17 12:38 Dose: Not Given Levocarnitine (Carnitor) 330 mg PO BID [facility] Stop: 01/28/18 16:59 Last Admin: 12/05/17 09:11 Dose: Not Given Ondansetron HCl (Zofran) 4 mg IV Q6H PRN PRN Reason: Nausea / Vomiting Stop: 01/31/18 13:08 Last Admin: 12/04/17 10:48 Dose: 4 mg Spironolactone (Aldactone) 50 mg PO DAILY [facility] Stop: 01/29/18 09:59 Last Admin: 12/05/17 09:12 Dose: Not Given Trazodone HCl (Desyrel) 50 mg PO HS [facility]; Protocol Stop: 01/28/18 20:59 Last Admin: 12/04/17 21:43 Dose: 50 mg Triamcinolone Acetonide (Kenalog 0.1%) 1 appl TP QID [facility] Stop: 01/28/18 12:59 Last Admin: 12/05/17 12:38 Dose: Not Given Vitamin D (Vitamin D3) 2,000 iu PO DAILY [facility] Stop: 01/28/18 09:59 Last Admin: 12/05/17 09:11 Dose: Not Given General: no acute distress, cachectic HEENT: atraumatic, normocephalic, PERRLA, EOMI, moist mucous membrane Neck: supple, no thyromegaly, no lymphadenopathy, no rigid, no lines Cardiovascular: S1S2, regular, no systolic murmur Lungs: clear to auscultation bilaterally, clear to percussion, crackles Abdomen: soft, bowel sounds, no tender, no distended, no mass, no rebound, no hepatomegaly, no splenomegaly, no ascites, no guarding, no drain, no obese Extremities: no cyanosis, no clubbing, no edema Neurological: awake, alert Skin: intact - Procedures Procedures: Procedures Procedure Code Date EXCISION OF DUODENUM, ENDO, DIAGN [id number] 06/06/17 EXCISION OF STOMACH, ENDO, DIAGN [id number] 06/06/17 EXCISION OF TRANSVERSE COLON, ENDO [id number] 06/06/17 Infectious Disease Assmt/Plan - Assessment Assessment: 1. Pancytopenia secondary to liver disease. 2. History of ORIF related to me which is treated. 3. Cirrhosis. Treated 4. Nausea, vomting and abdominal pain 5. Hepatitis C. 6. Hypertension. 7. Chronic pain syndrome. 8. Asthma, chronic obstructive pulmonary disease. 9. Dyslipidemia. 10. Peptic ulcer disease, gastroesophageal reflux disease. 11. Dementia. 12. Neuropathy. 13. History of methicillin-resistant Staphylococcus aureus infection of the left hip. Left hip prosthesis treated, no signs and symptoms of infection at this time. 14. History of open reduction and internal fixation of the left hip. - Plan Plan: Continue same treatment. Nutritional Asmnt/Malnutr-PDOC - Dietary Evaluation Malnutrition Findings (Please click <Entered> for more info): Nutritional Asmnt/Malnutrition Start: 11/29/17 17: 35 Text: Status: Complete Freq: Protocol: Document 11/29/17 17:35 LCHENG (Rec: 11/29/17 17:41 [email or web address] [email or web address]) Nutritional Asmnt/Malnutrition Patient General Information Nutritional Screening High Risk Diagnosis abd apin, intractable pain, gastritis Pertinent Medical Hx/Surgical Hx hepatitis B, psychosis, thrombocytopeni, HTN, DM, asthma/COPD, PUD/GERD, depresion, schizophrenia, bipolar Subjective Information Pt seen in room having abd ultrasound, not appropirate for interview at this time. Current Diet Order/ Nutrition Support mech soft chopped, boost TID Pertinent Medications D5-0.45ns, iron, vit D3 Pertinent Labs 11/29 Na 134, BUN 5, Cr 0.6, Ca 7.7, glucose 91 Nutritional Hx/Data Height 1.83 m Height (Calculated Centimeters) 182.9 Current Weight (lbs) 90.718 kg Weight (Calculated Kilograms) 90.7 Weight (Calculated Grams) 23057.5 Pace Body Weight 178 Body Mass Index (BMI) 27.1 Weight Status Overweight GI Symptoms GI Symptoms None Last BM not indicated Difficult in: None Skin Integrity/Comment: bruise to right and left upper arm Estimated Nutritional Goals BEE in Kcals: Using Current wt Calories/Kcals/Kg 23-27 Kcals Calculated 2017-8852 Protein: Using Current wt Protein g/k.8-1 Protein Calculated 72-91 Fluid: ml 3-2457ml (1ml/kcal) Nutritional Problem No current Nutrition Prob Problem N/A Intervention/Recommendation Comments 1. Continue with current diet with supplements as ordered. 2. Monitor PO intake, wt, labs and skin integrity 3. F/U as high risk in 2-3 days, 12/01-12/02 Expected Outcomes/Goals Expected Outcomes/Goals 1. PO intake to meet at least 75% of nutritional needs. 2. Wt stability, skin to remain intact, labs to approach WNL.
--- NOTE | 2017-12-05 13:55 | Diagnostic Imaging Report ---
Paracentesis (ultrasound-guided) HISTORY: Ascites Using ultrasound guidance and sterile technique, 3.5 L of yellow tinted ascitic fluid was aspirated from the right abdomen. The patient tolerated the procedure with no immediate apparent clinical complications. IMPRESSION: Paracentesis as noted above
--- NOTE | 2017-12-05 14:11 | GI Progress Note ---
Subjective - Review of Systems Service Date: 12/05/17 Events since last encounter: No events Subjective: Abdominal pain and pressure Objective - Results Result Diagrams: 12/04/17 04:50 12/03/17 06:22 Recent Labs: Laboratory Last Values WBC 3.5 Th/cmm (4.8-10.8) L 12/04/17 04:50 RBC 3.06 Mil/cmm (3.80-5.80) L 12/04/17 04:50 Hgb 9.1 gm/dL (12-16) L 12/04/17 04:50 Hct 26.8 % (41.0-60) L 12/04/17 04:50 MCV 87.7 fl (80-99) 12/04/17 04:50 MCH 29.8 pg (27.0-31.0) 12/04/17 04:50 MCHC Differential 34.0 pg (28.0-36.0) 12/04/17 04:50 RDW 15.6 % (11.5-20.0) 12/04/17 04:50 Plt Count 51 Th/cmm (150-400) L 12/04/17 04:50 MPV 8.7 fl 12/04/17 04:50 Neutrophils % 44.3 % (40.0-80.0) 12/04/17 04:50 Band Neutrophils % 1 % (0-10) 12/03/17 06:22 Lymphocytes % 36.4 % (20.0-50.0) 12/04/17 04:50 Monocytes % 12.6 % (2.0-10.0) H 12/04/17 04:50 Eosinophils % 6.3 % (0.0-5.0) H 12/04/17 04:50 Basophils % 0.4 % (0.0-2.0) 12/04/17 04:50 Neutrophils (Manual) 58 % (40-80) 12/03/17 06:22 Lymphocytes 25 % (20-50) 12/03/17 06:22 Monocytes 10 % (2-10) 12/03/17 06:22 Eosinophils 6 % (0-5) H 12/03/17 06:22 Basophils 0 % (0-3) 12/03/17 06:22 Platelet Estimate DECREASED PLATELETS (NORMAL) 11/28/17 17:33 Smear Path Review 12/02/17 05:50 PT 13.7 SECONDS (9.5-11.5) H 12/02/17 05:50 INR 1.30 (0.5-1.4) 12/02/17 05:50 PTT (Actin FS) 34.1 SECONDS (26.0-38.0) 12/01/17 05:25 Sodium 131 mEq/L (136-145) L 12/03/17 06:22 Potassium 3.7 mEq/L (3.5-5.1) 12/03/17 06:22 Chloride 104 mEq/L (98-107) 12/03/17 06:22 Carbon Dioxide 23.0 mEq/L (21.0-31.0) 12/03/17 06:22 Anion Gap 7.7 (7.0-16.0) 12/03/17 06:22 BUN 3 mg/dL (7-25) L 12/03/17 06:22 Creatinine 0.6 mg/dL (0.7-1.3) L 12/03/17 06:22 Est GFR ( Amer) > 60.0 ml/min (>90) 12/03/17 06:22 Est GFR (Non-Af Amer) > 60.0 ml/min 12/03/17 06:22 BUN/Creatinine Ratio 5.0 12/03/17 06:22 Glucose 114 mg/dL (70-105) H 12/03/17 06:22 Whole Bld Lactic Acid 1.16 mmol/L (0.60-1.99) 11/28/17 17:33 Calcium 7.6 mg/dL (8.6-10.3) L 12/03/17 06:22 Total Bilirubin 0.9 mg/dL (0.3-1.0) 11/29/17 06:06 AST 22 U/L (13-39) 11/29/17 06:06 ALT 9 U/L (7-52) 11/29/17 06:06 Alkaline Phosphatase 45 U/L (34-104) 11/29/17 06:06 Creatine Kinase 43 U/L (30-223) 11/28/17 17:33 Troponin I 0.02 ng/mL (0.01-0.05) 11/28/17 17:33 B-Natriuretic Peptide 73.8 pg/mL (5.0-100.0) 11/28/17 17:33 Total Protein 5.0 gm/dL (6.0-8.3) L 11/29/17 06:06 Albumin 1.9 gm/dL (4.2-5.5) L 11/29/17 06:06 Globulin 3.1 gm/dL 11/29/17 06:06 Albumin/Globulin Ratio 0.6 (1.0-1.8) L 11/29/17 06:06 Triglycerides 63 mg/dL (<150) 11/29/17 06:06 Cholesterol 76 mg/dL (<200) 11/29/17 06:06 LDL Cholesterol Direct 45 mg/dL (75-193) L 11/29/17 06:06 HDL Cholesterol 11 mg/dL (23-92) L 11/29/17 06:06 Amylase 13 U/L (29-103) L 11/29/17 06:06 Lipase 8 U/L (11-82) L 11/29/17 06:06 Urine Source CLEAN C 11/29/17 20:55 Urine Color YELLOW 11/29/17 20:55 Urine Clarity SLIGHTLY HAZY (CLEAR) 11/29/17 20:55 Urine pH 6.5 (4.6 - 8.0) 11/29/17 20:55 Ur Specific [place] 1.025 (1.005-1.030) 11/29/17 20:55 Urine Protein NEGATIVE mg/dL (NEGATIVE) 11/29/17 20:55 Urine Glucose (UA) NEGATIVE mg/dL (NEGATIVE) 11/29/17 20:55 Urine Ketones TRACE mg/dL (NEGATIVE) 11/29/17 20:55 Urine Blood TRACE (NEGATIVE) 11/29/17 20:55 Urine Nitrate NEGATIVE (NEGATIVE) 11/29/17 20:55 Urine Bilirubin NEGATIVE (NEGATIVE) 11/29/17 20:55 Urine Urobilinogen 0.2 E.U./dL (0.2 - 1.0) 11/29/17 20:55 Ur Leukocyte Esterase NEGATIVE (NEGATIVE) 11/29/17 20:55 Urine RBC 5-10 /hpf (0-5) H 11/29/17 20:55 Urine WBC 0-2 /hpf (0-5) 11/29/17 20:55 Ur Epithelial Cells OCCASIONAL /lpf (FEW) 11/29/17 20:55 Urine Bacteria NONE SEEN /hpf (NONE SEEN) 11/29/17 20:55 Urine Mucus MODERATE /lpf (FEW) 11/29/17 20:55 Body Fluid Site ABDOMEN 11/29/17 13:40 Fluid Source PARACENTHESIS 11/29/17 13:40 Fluid Color PALE YELLOW 11/29/17 13:40 Fluid Appearance HAZY 11/29/17 13:40 Fluid WBC 12 /cumm 11/29/17 13:40 Fluid RBC 19 /cumm 11/29/17 13:40 Fluid Neutrophils 2 % 11/29/17 13:40 Fluid Lymphocytes 63 % 11/29/17 13:40 Fluid Monocytes 35 % 11/29/17 13:40 Fld Mesothelial Cells MODERATE 11/29/17 13:40 Body Fluid Clot 11/29/17 13:40 Fluid Total Protein 1.4 g/dL 11/29/17 13:40 Fluid LDH 40 U/L 11/29/17 13:40 - Physical Exam Vitals and I&O: Vital Signs Temp 98.4 F 12/05/17 11:55 Pulse 67 12/05/17 11:55 Resp 16 12/05/17 12:00 BP 113/64 12/05/17 11:55 Pulse Ox 94 12/05/17 11:55 Intake & Output 12/04/17 12/05/17 12/05/17 18:59 06:59 18:59 Intake Total 450 100 240 Balance 450 100 240 Weight (lbs) 87.09 kg 87.09 kg 87.09 kg Intake: Oral 450 100 240 Other: # Voids 2 # Bowel Movements 1 Stool Characteristics Liquid Weight Source Bedscale Estimated Estimated Active Medications: Current Medications Artificial Tears (Artificial Tears Ophth Soln) 1 drop EACH EYE QID [facility] Stop: 01/29/18 12:59 Last Admin: 12/05/17 12:38 Dose: Not Given Dicyclomine HCl (Bentyl) 20 mg PO BID [facility] Stop: 01/28/18 16:59 Last Admin: 12/05/17 09:11 Dose: Not Given Diphenhydramine HCl (Benadryl) 25 mg PO TID [facility] Stop: 01/28/18 13:59 Last Admin: 12/05/17 09:11 Dose: Not Given Ferrous Sulfate (Iron) 325 mg PO DAILY [facility] Stop: 01/28/18 09:59 Last Admin: 12/05/17 09:11 Dose: Not Given Hydromorphone HCl (Dilaudid) 2 mg IVP Q4H PRN PRN Reason: Pain (Severe) Stop: 02/02/18 22:08 Last Admin: 12/05/17 13:26 Dose: 2 mg Hydroxyzine HCl (Atarax) 25 mg PO TID [facility]; Protocol Stop: 01/28/18 13:59 Last Admin: 12/05/17 09:11 Dose: Not Given Dextrose/Sodium Chloride (D5-0.45ns) 1,000 mls @ 75 mls/hr IV .[id number] [facility] Stop: 01/28/18 08:29 Last Admin: 12/04/17 16:28 Dose: 75 mls/hr Lactulose (Cephulac) 60 gm PO QID [facility] Stop: 01/28/18 12:59 Last Admin: 12/05/17 12:38 Dose: Not Given Levocarnitine (Carnitor) 330 mg PO BID [facility] Stop: 01/28/18 16:59 Last Admin: 12/05/17 09:11 Dose: Not Given Ondansetron HCl (Zofran) 4 mg IV Q6H PRN PRN Reason: Nausea / Vomiting Stop: 01/31/18 13:08 Last Admin: 12/04/17 10:48 Dose: 4 mg Spironolactone (Aldactone) 50 mg PO DAILY [facility] Stop: 01/29/18 09:59 Last Admin: 12/05/17 09:12 Dose: Not Given Trazodone HCl (Desyrel) 50 mg PO HS [facility]; Protocol Stop: 01/28/18 20:59 Last Admin: 12/04/17 21:43 Dose: 50 mg Triamcinolone Acetonide (Kenalog 0.1%) 1 appl TP QID [facility] Stop: 01/28/18 12:59 Last Admin: 12/05/17 12:38 Dose: Not Given Vitamin D (Vitamin D3) 2,000 iu PO DAILY [facility] Stop: 01/28/18 09:59 Last Admin: 12/05/17 09:11 Dose: Not Given General: Alert, No acute distress HEENT: Atraumatic Neck: Supple Cardiovascular: Regular rate Abdomen: Bowel sounds, Soft, Tender, Distended, no Hepatomegaly, no Rebound, no Mass, no Guarding Skin: no Rash - Procedures Procedures: Procedures Procedure Code Date EXCISION OF DUODENUM, ENDO, DIAGN [id number] 06/06/17 EXCISION OF STOMACH, ENDO, DIAGN [id number] 06/06/17 EXCISION OF TRANSVERSE COLON, ENDO [id number] 06/06/17 Assessment/Plan - Assessment Assessment: 1. Cirrhosis 2. Abdominal pain - Plan Plan: - paracentesis done - cont lasix and aldactone. Increase as tolerated by electrolytes - lactulose bid to prevent encephalopathy and constipation - HCC screening is up to date, he had CT scan 10/2017 that was negative - Not due for variceal screening until 06/2018 - pain management as per primary - not due for colonoscopy until 06/2020 unless he has any GI bleeding - low salt diet recommended
--- NOTE | 2017-12-05 15:36 | General Progress Note ---
Subjective - Review of Systems Service Date: 12/05/17 Subjective: awake, agitated c/o abd pain Objective - Results Result Diagrams: 12/04/17 04:50 12/03/17 06:22 Recent Labs: Laboratory Last Values WBC 3.5 Th/cmm (4.8-10.8) L 12/04/17 04:50 RBC 3.06 Mil/cmm (3.80-5.80) L 12/04/17 04:50 Hgb 9.1 gm/dL (12-16) L 12/04/17 04:50 Hct 26.8 % (41.0-60) L 12/04/17 04:50 MCV 87.7 fl (80-99) 12/04/17 04:50 MCH 29.8 pg (27.0-31.0) 12/04/17 04:50 MCHC Differential 34.0 pg (28.0-36.0) 12/04/17 04:50 RDW 15.6 % (11.5-20.0) 12/04/17 04:50 Plt Count 51 Th/cmm (150-400) L 12/04/17 04:50 MPV 8.7 fl 12/04/17 04:50 Neutrophils % 44.3 % (40.0-80.0) 12/04/17 04:50 Band Neutrophils % 1 % (0-10) 12/03/17 06:22 Lymphocytes % 36.4 % (20.0-50.0) 12/04/17 04:50 Monocytes % 12.6 % (2.0-10.0) H 12/04/17 04:50 Eosinophils % 6.3 % (0.0-5.0) H 12/04/17 04:50 Basophils % 0.4 % (0.0-2.0) 12/04/17 04:50 Neutrophils (Manual) 58 % (40-80) 12/03/17 06:22 Lymphocytes 25 % (20-50) 12/03/17 06:22 Monocytes 10 % (2-10) 12/03/17 06:22 Eosinophils 6 % (0-5) H 12/03/17 06:22 Basophils 0 % (0-3) 12/03/17 06:22 Platelet Estimate DECREASED PLATELETS (NORMAL) 11/28/17 17:33 Smear Path Review 12/02/17 05:50 PT 13.7 SECONDS (9.5-11.5) H 12/02/17 05:50 INR 1.30 (0.5-1.4) 12/02/17 05:50 PTT (Actin FS) 34.1 SECONDS (26.0-38.0) 12/01/17 05:25 Sodium 131 mEq/L (136-145) L 12/03/17 06:22 Potassium 3.7 mEq/L (3.5-5.1) 12/03/17 06:22 Chloride 104 mEq/L (98-107) 12/03/17 06:22 Carbon Dioxide 23.0 mEq/L (21.0-31.0) 12/03/17 06:22 Anion Gap 7.7 (7.0-16.0) 12/03/17 06:22 BUN 3 mg/dL (7-25) L 12/03/17 06:22 Creatinine 0.6 mg/dL (0.7-1.3) L 12/03/17 06:22 Est GFR ( Amer) > 60.0 ml/min (>90) 12/03/17 06:22 Est GFR (Non-Af Amer) > 60.0 ml/min 12/03/17 06:22 BUN/Creatinine Ratio 5.0 12/03/17 06:22 Glucose 114 mg/dL (70-105) H 12/03/17 06:22 Whole Bld Lactic Acid 1.16 mmol/L (0.60-1.99) 11/28/17 17:33 Calcium 7.6 mg/dL (8.6-10.3) L 12/03/17 06:22 Total Bilirubin 0.9 mg/dL (0.3-1.0) 11/29/17 06:06 AST 22 U/L (13-39) 11/29/17 06:06 ALT 9 U/L (7-52) 11/29/17 06:06 Alkaline Phosphatase 45 U/L (34-104) 11/29/17 06:06 Creatine Kinase 43 U/L (30-223) 11/28/17 17:33 Troponin I 0.02 ng/mL (0.01-0.05) 11/28/17 17:33 B-Natriuretic Peptide 73.8 pg/mL (5.0-100.0) 11/28/17 17:33 Total Protein 5.0 gm/dL (6.0-8.3) L 11/29/17 06:06 Albumin 1.9 gm/dL (4.2-5.5) L 11/29/17 06:06 Globulin 3.1 gm/dL 11/29/17 06:06 Albumin/Globulin Ratio 0.6 (1.0-1.8) L 11/29/17 06:06 Triglycerides 63 mg/dL (<150) 11/29/17 06:06 Cholesterol 76 mg/dL (<200) 11/29/17 06:06 LDL Cholesterol Direct 45 mg/dL (75-193) L 11/29/17 06:06 HDL Cholesterol 11 mg/dL (23-92) L 11/29/17 06:06 Amylase 13 U/L (29-103) L 11/29/17 06:06 Lipase 8 U/L (11-82) L 11/29/17 06:06 Urine Source CLEAN C 11/29/17 20:55 Urine Color YELLOW 11/29/17 20:55 Urine Clarity SLIGHTLY HAZY (CLEAR) 11/29/17 20:55 Urine pH 6.5 (4.6 - 8.0) 11/29/17 20:55 Ur Specific [place] 1.025 (1.005-1.030) 11/29/17 20:55 Urine Protein NEGATIVE mg/dL (NEGATIVE) 11/29/17 20:55 Urine Glucose (UA) NEGATIVE mg/dL (NEGATIVE) 11/29/17 20:55 Urine Ketones TRACE mg/dL (NEGATIVE) 11/29/17 20:55 Urine Blood TRACE (NEGATIVE) 11/29/17 20:55 Urine Nitrate NEGATIVE (NEGATIVE) 11/29/17 20:55 Urine Bilirubin NEGATIVE (NEGATIVE) 11/29/17 20:55 Urine Urobilinogen 0.2 E.U./dL (0.2 - 1.0) 11/29/17 20:55 Ur Leukocyte Esterase NEGATIVE (NEGATIVE) 11/29/17 20:55 Urine RBC 5-10 /hpf (0-5) H 11/29/17 20:55 Urine WBC 0-2 /hpf (0-5) 11/29/17 20:55 Ur Epithelial Cells OCCASIONAL /lpf (FEW) 11/29/17 20:55 Urine Bacteria NONE SEEN /hpf (NONE SEEN) 11/29/17 20:55 Urine Mucus MODERATE /lpf (FEW) 11/29/17 20:55 Body Fluid Site ABDOMEN 11/29/17 13:40 Fluid Source PARACENTHESIS 11/29/17 13:40 Fluid Color PALE YELLOW 11/29/17 13:40 Fluid Appearance HAZY 11/29/17 13:40 Fluid WBC 12 /cumm 11/29/17 13:40 Fluid RBC 19 /cumm 11/29/17 13:40 Fluid Neutrophils 2 % 11/29/17 13:40 Fluid Lymphocytes 63 % 11/29/17 13:40 Fluid Monocytes 35 % 11/29/17 13:40 Fld Mesothelial Cells MODERATE 11/29/17 13:40 Body Fluid Clot 11/29/17 13:40 Fluid Total Protein 1.4 g/dL 11/29/17 13:40 Fluid LDH 40 U/L 11/29/17 13:40 - Physical Exam Vitals and I&O: Vital Signs Temp 98.4 F 12/05/17 11:55 Pulse 67 12/05/17 11:55 Resp 16 12/05/17 12:00 BP 113/64 12/05/17 11:55 Pulse Ox 94 12/05/17 11:55 Intake & Output 12/04/17 12/05/17 12/05/17 18:59 06:59 18:59 Intake Total 450 100 240 Balance 450 100 240 Weight (lbs) 87.09 kg 87.09 kg 87.09 kg Intake: Oral 450 100 240 Other: # Voids 2 # Bowel Movements 1 Stool Characteristics Liquid Weight Source Bedscale Estimated Estimated Active Medications: Current Medications Artificial Tears (Artificial Tears Ophth Soln) 1 drop EACH EYE QID [facility] Stop: 01/29/18 12:59 Last Admin: 12/05/17 12:38 Dose: Not Given Dicyclomine HCl (Bentyl) 20 mg PO BID [facility] Stop: 01/28/18 16:59 Last Admin: 12/05/17 09:11 Dose: Not Given Diphenhydramine HCl (Benadryl) 25 mg PO TID [facility] Stop: 01/28/18 13:59 Last Admin: 12/05/17 09:11 Dose: Not Given Ferrous Sulfate (Iron) 325 mg PO DAILY [facility] Stop: 01/28/18 09:59 Last Admin: 12/05/17 09:11 Dose: Not Given Hydromorphone HCl (Dilaudid) 2 mg IVP Q4H PRN PRN Reason: Pain (Severe) Stop: 02/02/18 22:08 Last Admin: 12/05/17 13:26 Dose: 2 mg Hydroxyzine HCl (Atarax) 25 mg PO TID [facility]; Protocol Stop: 01/28/18 13:59 Last Admin: 12/05/17 09:11 Dose: Not Given Dextrose/Sodium Chloride (D5-0.45ns) 1,000 mls @ 75 mls/hr IV .[id number] [facility] Stop: 01/28/18 08:29 Last Admin: 12/04/17 16:28 Dose: 75 mls/hr Lactulose (Cephulac) 60 gm PO QID [facility] Stop: 01/28/18 12:59 Last Admin: 12/05/17 12:38 Dose: Not Given Levocarnitine (Carnitor) 330 mg PO BID [facility] Stop: 01/28/18 16:59 Last Admin: 12/05/17 09:11 Dose: Not Given Ondansetron HCl (Zofran) 4 mg IV Q6H PRN PRN Reason: Nausea / Vomiting Stop: 01/31/18 13:08 Last Admin: 12/04/17 10:48 Dose: 4 mg Spironolactone (Aldactone) 50 mg PO DAILY [facility] Stop: 01/29/18 09:59 Last Admin: 12/05/17 09:12 Dose: Not Given Trazodone HCl (Desyrel) 50 mg PO HS [facility]; Protocol Stop: 01/28/18 20:59 Last Admin: 12/04/17 21:43 Dose: 50 mg Triamcinolone Acetonide (Kenalog 0.1%) 1 appl TP QID [facility] Stop: 01/28/18 12:59 Last Admin: 12/05/17 12:38 Dose: Not Given Vitamin D (Vitamin D3) 2,000 iu PO DAILY [facility] Stop: 01/28/18 09:59 Last Admin: 12/05/17 09:11 Dose: Not Given General: Alert, No acute distress HEENT: Atraumatic Neck: Supple Cardiovascular: Regular rate Abdomen: Bowel sounds, Soft, Tender, Distended, no Hepatomegaly, no Rebound, no Mass, no Guarding Skin: no Rash - Procedures Procedures: Procedures Procedure Code Date EXCISION OF DUODENUM, ENDO, DIAGN [id number] 06/06/17 EXCISION OF STOMACH, ENDO, DIAGN [id number] 06/06/17 EXCISION OF TRANSVERSE COLON, ENDO [id number] 06/06/17 Assessment/Plan - Assessment Assessment: * hep c and cirrhosis * Vitamin k deficiency * thrombocytopenia worse * Abd. pain per GI vitamin k supplementation and monitoring coags and plt 12/01: coags better on vitamin k. plt and hgb stable 12/02: lab noted. plt better. hgb stable 12/04: plt improving. hgb stable. coagulation better. discontinue vit k 12/05: No changes or bleeding on clinical exam. follow cbc Nutritional Asmnt/Malnutr-PDOC - Dietary Evaluation Malnutrition Findings (Please click <Entered> for more info): Nutritional Asmnt/Malnutrition Start: 11/29/17 17: 35 Text: Status: Complete Freq: Protocol: Document 11/29/17 17:35 LCHEN (Rec: 11/29/17 17:41 HEN [id number]) Nutritional Asmnt/Malnutrition Patient General Information Nutritional Screening High Risk Diagnosis abd apin, intractable pain, gastritis Pertinent Medical Hx/Surgical Hx hepatitis B, psychosis, thrombocytopeni, HTN, DM, asthma/COPD, PUD/GERD, depresion, schizophrenia, bipolar Subjective Information Pt seen in room having abd ultrasound, not appropirate for interview at this time. Current Diet Order/ Nutrition Support mech soft chopped, boost TID Pertinent Medications D5-0.45ns, iron, vit D3 Pertinent Labs 11/29 Na 134, BUN 5, Cr 0.6, Ca 7.7, glucose 91 Nutritional Hx/Data Height 1.83 m Height (Calculated Centimeters) 182.9 Current Weight (lbs) 90.718 kg Weight (Calculated Kilograms) 90.7 Weight (Calculated Grams) 64410.5 [place] Body Weight 178 Body Mass Index (BMI) 27.1 Weight Status Overweight GI Symptoms GI Symptoms None Last BM not indicated Difficult in: None Skin Integrity/Comment: bruise to right and left upper arm Estimated Nutritional Goals BEE in Kcals: Using Current wt Calories/Kcals/Kg 23-27 Kcals Calculated 1898-1424 Protein: Using Current wt Protein g/k.8-1 Protein Calculated 72-91 Fluid: ml 2093-2457ml (1ml/kcal) Nutritional Problem No current Nutrition Prob Problem N/A Intervention/Recommendation Comments 1. Continue with current diet with supplements as ordered. 2. Monitor PO intake, wt, labs and skin integrity 3. F/U as high risk in 2-3 days, 12/01-12/02 Expected Outcomes/Goals Expected Outcomes/Goals 1. PO intake to meet at least 75% of nutritional needs. 2. Wt stability, skin to remain intact, labs to approach WNL.
--- NOTE | 2017-12-08 17:47 | Discharge Summary ---
DATE OF DISCHARGE: 12/05/2017 ADMITTING DIAGNOSES: The patient has severe abdominal pain, abdominal pancytopenia, liver disease, history of hepatitis B, history of ORIF and the patient also has severe ascites. PLAN: The patient was admitted and had sepsis workup done, given antibiotics. Also was found to have severe ascites. The patient had paracentesis on 2 occasions and the patient's, Infectious Disease, Dr. Chand, saw the patient as well as Dr. Langston, the bill of materials clerk. The patient gradually improved and the patient was in stable condition. On 12/05/2017, was discharged with a final diagnosis of very advanced liver disease with recurrent ascites, history of cirrhosis of the liver and I will follow the patient in the jail. [facility]# [id number]
== END 2017-12-05 20:35 | DRG 441 ==
LOC: ER 16:53 → TELE 20:58
PROVIDERS: ADMIT Internal Medicine; ATTEND Internal Medicine
PROC: 0W9G3ZZ Drainage of Peritoneal Cavity, Percutaneous Approach (ICD-10-PCS; principal; 2017-11-29)
PROC: 0W9G3ZZ Drainage of Peritoneal Cavity, Percutaneous Approach (ICD-10-PCS; 2017-12-05)
DX: K72.90 Hepatic failure, unspecified without coma (principal); E41 Nutritional marasmus; R18.8 Other ascites; D61.818 Other pancytopenia; F11.20 Opioid dependence, uncomplicated; K21.9 Gastro-esophageal reflux disease without esophagitis; I10 Essential (primary) hypertension; J44.9 Chronic obstructive pulmonary disease, unspecified; F17.210 Nicotine dependence, cigarettes, uncomplicated; K74.60 Unspecified cirrhosis of liver; K52.9 Noninfective gastroenteritis and colitis, unspecified; D64.9 Anemia, unspecified; B19.20 Unspecified viral hepatitis C without hepatic coma; G89.4 Chronic pain syndrome; K27.9 Peptic ulcer, site unspecified, unspecified as acute or chronic, without hemorrhage or perforation; F03.90 Unspecified dementia, unspecified severity, without behavioral disturbance, psychotic disturbance, mood disturbance, and anxiety; E11.40 Type 2 diabetes mellitus with diabetic neuropathy, unspecified; E56.1 Deficiency of vitamin K; Z83.3 Family history of diabetes mellitus; Z82.49 Family history of ischemic heart disease and other diseases of the circulatory system; Z68.27 Body mass index [BMI] 27.0-27.9, adult
CPT/HCPCS: 36415-UA; 76700-TC; 76705-TC; 76942-TC; 80048-TC; 80053-TC; 80061-TC; 81001-TC; 82150-TC; 82550-TC; 83605; 83615-TC; 83690-TC; 83880-TC; 84157-TC; 84484-TC; 85007-TC; 85025-TC; 85027-TC; 85610-TC; 88162-90; 88305-90; 89051-TC; 93005; 94760; 96374; 96375; J1170; J2405; J7030; J7042

== ENCOUNTER 2017-12-20 16:51 | Inpatient (IN) | payer MEDICARE, MEDICAID ==
--- NOTE | 2017-12-20 17:02 | ED Physician Chart ---
ED Chief Complaint/HPI - Patient Information Date Seen:: 12/20/17 Time Seen:: 16:35 Chief Complaint:: Abdominal Pain History of Present Illness:: onset x one day of intermittent, diffuse, crampy abdominal pain, N/V/D; no report of trauma, H/As, S/T, neck pain, C/P, SOB, cough, A/C, fever, chills, or urinary s/s Allergies:: Allergies Allergy/AdvReac Type Severity Reaction Status Date / Time No Known Allergies Allergy Verified 11/27/17 22:58 Historian:: Patient, EMS Review:: Nurse's Note Reviewed, Old Chart Reviewed, EMS run form Reviewed ED Review of Systems - Review of Systems General/Constitutional: Fever, No chills, No weight loss, No weakness, No diaphoresis, No edema, No loss of appetite Skin: No skin lesions, No rash, No bruising Head: No headache, No light-headedness Eyes: No loss of vision, No pain, No diplopia ENT: No earache, No nasal drainage, No sore throat, No tinnitus Neck: No neck pain, No swelling, No thyromegaly, No stiffness, No mass noted Cardio Vascular: No chest pain, No palpitations, No PND, No orthopnea, No edema Pulmonary: SOB, Cough, No sputum, Wheezing GI: Nausea, Vomiting, Diarrhea, Pain, No melena, No hematochezia, No constipation, No hematemesis G/U: No dysuria, No frequency, No hematuria, No nacturia Musculoskeletal: No bone or joint pain, No back pain, No muscle pain Endocrine: No polyuria, No polydipsia Psychiatric: No prior psych history, No depression, No anxiety, No suicidal ideation, No homicidal ideation, No auditory hallucination, No visual hallucination Hematopoietic: No bruising, No lymphadenopathy Allergic/Immuno: No urticaria, No angioedema Neurological: No syncope, No focal symptoms, No weakness, No paresthesia, No headache, No seizure, No dizziness, No confusion, No vertigo ED Past Medical History - Past Medical History Obtainable: Yes Past Medical History: HTN, Asthma/COPD, Dyslipidemia, PUD/GERD, Arthritis Family History: HTN Social History: Non Smoker, No Alcohol, No Drug Use, Single, Care Facility Surgical History: None Psychiatricy History: None Medication: Reviewed Family Medical History - Family Member Mother History Unknown: Yes Ethnicity: Non- Living Status: Hx Family Cancer: Yes Hx Family Coronary Artery Disease: No Hx Family Congestive Heart Failure: No Hx Family Hypertension: No Hx Family Stroke: No Hx Family Diabetes: No Hx Family Seizures: No Hx Family Dementia: No Hx Family AIDS: No Hx Family HIV: No Hx Family COPD: No Hx Family Hepatitis: No Hx Family Psychiatric Problems: No Hx Family Tuberculosis: No unknown History Unknown: Yes Ethnicity: Non- Living Status: Hx Family Cancer: No Hx Family Coronary Artery Disease: No Hx Family Congestive Heart Failure: No Hx Family Hypertension: Yes Hx Family Stroke: No Hx Family Diabetes: No Hx Family Seizures: No Hx Family Dementia: No Hx Family AIDS: No Hx Family HIV: No Hx Family COPD: No Hx Family Hepatitis: No Hx Family Psychiatric Problems: No Hx Family Tuberculosis: No Father History Unknown: Yes Ethnicity: Non- Living Status: Hx Family Cancer: No Hx Family Coronary Artery Disease: No Hx Family Congestive Heart Failure: No Hx Family Hypertension: No Hx Family Stroke: No Hx Family Diabetes: No Hx Family Seizures: No Hx Family Dementia: No Hx Family AIDS: No Hx Family HIV: No Hx Family COPD: No Hx Family Hepatitis: No Hx Family Psychiatric Problems: No Hx Family Tuberculosis: No Sister History Unknown: Yes Ethnicity: Living Status: ED Physical Exam - Physical Examination General/Constitutional: Awake, Well-developed, well-nourished, Alert, No distress, GCS 15, Non-toxic appearing, Ambulatory Head: Atraumatic Eyes: Lids, conjuctiva normal, PERRL, EOMI Skin: Nl inspection, No rash, No skin lesions, No ecchymosis, Well hydrated, No lymphadenopathy ENMT: External ears, nose nl, TM canals nl, Nasal exam nl, Lips, teeth, gums nl , Oropharynx nl, Tonsils nl Neck: Nontender, Full ROM w/o pain, No JVD, No nuchal rigidity, No bruit, No mass, No stridor Respiratory: Nl effort/Exclusion, Clear to Auscultation, No Wheeze/Rhonchi/Rales Cardio Vascular: RRR, No murmur, gallop, rubs, NL S1 S2, Carotid/Femoral/Distal pulses equal bilaterally GI: No tenderness/rebounding/guarding, No organomegaly, No hernia, Normal BS's, Nondistended, No mass/bruits, No McBurney tenderness, Rectum exam nl Other GI comments:: no pulsatile masses : No CVA tenderness Extremities: No tenderness or effusion, Full ROM, normal strength in all extremities, No edema, Normal digits & nails Neuro/Psych: Alert/oriented, DTR's symmetric, Normal sensory exam, Normal motor strength, Judgement/insight normal, Mood normal, Normal gait, No focal deficits Misc: Normal back, No paraspinal tenderness ED Labs/Radiology/EKG Results - Lab Results Comments:: H/H: 9.8/29.9; WBC: 3.2; Na+: 131; K+: 3.3; Ca+: 7.9 - Radiology Results Comments:: NAD - EKG Interpretations EKG Time:: 17:21 Rate & Rhythm: 81; NSR Comments:: non-specific st-t changes ED Septic Shock - . Is Septic Shock (SBP<90, OR Lactate>4 mmol\L) present?: No ED Reassessment (Disposition) - Reassessment Reassessment Condition:: Improved - Diagnosis Diagnosis:: Abdominal Pain; N/V/D; AGE; Hyponatremia; Hypokalemia; Anemia; Leukopenia - Aftercare/Follow up Instructions Aftercare/Follow-Up Instructions:: Counseled pt regarding lab results/diagnosis & need follow up, Counseled pt & family regarding lab results/diagnosis & need follow up - Patient Disposition Discharge/Transfer:: Acute Care w/in this hosp Accepting Physician:: Dr. Nair Time Called:: 1844 Time Responded:: 18:45 Admitted to:: Telemetry Spoke to:: Dr. Nair Admitting Medical Physician:: Dr. Nair Condition at Disposition:: Stable, Improved
[2017-12-20 17:26] LABS: % BASOPHILS 1.5 % (0.0-2.0); % EOSINOPHILS 3.2 % (0.0-5.0); % LYMPHOCYTES 41.3 % (20.0-50.0); EOSINOPHILE ABSOLUTE 0.1 Th/cmm (0.1-0.4); HEMATOCRIT 29.1 % (41.0-60); HEMOGLOBIN 9.8 gm/dL (12-16); LYMPHOCYTE ABSOLUTE 1.4 Th/cmm (1.5-3.0); MEAN CELL VOLUME 86.8 fl (80-99); MEAN CORPUSCULAR HEMOGLOBIN 29.1 pg (27.0-31.0); MEAN CORPUSCULAR HGB CONC 33.6 pg (28.0-36.0); MEAN PLATELET VOLUME 6.9 fl; MONOCYTE ABSOLUTE 0.4 Th/cmm (0.3-1.0); NEUTROPHILE ABSOLUTE 1.3 Th/cmm (1.8-8.0); PLATELET COUNT 81 Th/cmm (150-400); RED BLOOD COUNT 3.35 Mil/cmm (3.80-5.80); RED CELL DISTRIBUTION WIDTH 14.4 % (11.5-20.0)
[2017-12-20 17:31] LABS: WHITE BLOOD COUNT 3.2 Th/cmm (4.8-10.8)
[2017-12-20 17:46] LABS: ALB/GLOB RATIO 0.6 (1.0-1.8); ALBUMIN 2.3 gm/dL (4.2-5.5); ALKALINE PHOSPHATASE 64 U/L (34-104); ANION GAP 9.2 (7.0-16.0); BUN - UREA NITROGEN 4 mg/dL (7-25); CALCIUM SERUM 7.9 mg/dL (8.6-10.3); CARBON DIOXIDE 22.1 mEq/L (21.0-31.0); CHLORIDE 103 mEq/L (98-107); CHOLESTEROL 109 mg/dL (<200); CREATININE - SERUM 0.6 mg/dL (0.7-1.3); CREATININE KINASE 31 U/L (30-223); GFR AFRICAN-AMERICAN > 60.0 ml/min (>90); GFR NON AFRICAN-AMERICAN > 60.0 ml/min; GLUCOSE 112 mg/dL (70-105); HDL -HIGH DENSITY LIPOPROTEIN 11 mg/dL (23-92); INR 1.49 (0.5-1.4); POTASSIUM SERUM 3.3 mEq/L (3.5-5.1); PROTHROMBIN TIME (TEST) 15.8 SECONDS (9.5-11.5); SGOT 31 U/L (13-39); SGPT/ALT 12 U/L (7-52); SODIUM SERUM 131 mEq/L (136-145); TOTAL PROTEIN,SERUM 5.9 gm/dL (6.0-8.3); TRIGLYCERIDES 89 mg/dL (<150)
[2017-12-20 17:47] LABS: AMYLASE SERUM 21 U/L (29-103); LIPASE 7 U/L (11-82)
[2017-12-20] MEDS: Sodium Chloride 0.9% 1,000 ML IV ONE ×2 (18:17→23:26)
[2017-12-20] MEDS ORDERED: Potassium Chloride 20 mEq ER Tab PO ONE ×2 (18:44→18:55)
[2017-12-20] MEDS ORDERED: cefTRIAXone 1 GM in Sodium Chloride 0.9% 50 ML IV ONE (19:28)
[2017-12-20 21:21] VITALS: BP 119/51
--- NOTE | 2017-12-20 22:11 | History & Physical ---
ADMIT DATE: 12/20/2017 HISTORY OF PRESENT ILLNESS: The patient was admitted for intermittent increased diffuse abdominal pain and the patient also had increasing jaundice. The patient is very well known to me. The patient is known to have history of chronic liver disease, history of hepatic encephalopathy episodes, and history of hepatitis C. The patient also has a history of psychosis, history of bipolar disorder, history of recurrent upper respiratory infections, and the patient was complaining of diffuse abdominal pain and jaundice, was admitted. The patient has a low-grade fever. No chills. Has weight loss and severe abdominal pain and head examination normal. He has had no headache, no neck pain. PAST MEDICAL HISTORY: The patient has a history of bipolar disorder and the patient has history of asthma, history of COPD, history of hyperlipidemia, peptic ulcer disease, GERD, and arthritis. PHYSICAL EXAMINATION: GENERAL: The patient is awake and alert. HEAD: Normal. ENT: Normal. NECK: Supple, nontender. LUNGS: Bilaterally rhonchi. CARDIOVASCULAR SYSTEM: S1, S2 heard. ABDOMEN: Diffuse tenderness. CENTRAL NERVOUS SYSTEM: Grossly nonfocal. LABORATORY DATA: His white count was 9.8 and WBC was low at 3.2. Sodium was low at 131, potassium was low 3.3, calcium was very low 7.9. EKG showed normal sinus rhythm. DIAGNOSES: Severe abdominal pain, nausea, vomiting, acute gastroenteritis, severe hyponatremia, hypokalemia, anemia, leukopenia, history of hepatitis C, history of cirrhosis of the liver, history of hepatic encephalopathy several times, history of bipolar disorder, history of rib fracture, history of hip repair, history of arthritis, history of chronic obstructive pulmonary disease, history of asthma, history of peptic ulcer disease, history of gastroesophageal reflux disease was made. PLAN: The patient is being admitted and I will go ahead and call Dr. Justino Chand to see the patient as well as a GI doctor, Dr. Hoyos and I will follow the patient. JOB# [id number]
[2017-12-20] MEDS: HYDROmorphone 1 mg/mL 1mL Syr IVP PRN (23:21)
[2017-12-21] MEDS: HYDROmorphone 1 mg/mL 1mL Syr IVP PRN ×4 (03:00→22:30)
[2017-12-21] MEDS ORDERED: HYPROMELLOSE EACH EYE SCH (09:00)
[2017-12-21] MEDS ORDERED: DEXTRAN EACH EYE SCH (09:00)
[2017-12-21] MEDS ORDERED: LIGHT MINERAL OIL EACH EYE SCH (09:00)
[2017-12-21] MEDS ORDERED: MIN OIL EACH EYE SCH (09:00)
[2017-12-21] MEDS: Lactulose 10 Gm/15 mL 30mL UDC PO SCH ×4 (09:33→21:39)
[2017-12-21] MEDS: Ferrous Sulfate 325 MG TAB PO SCH (09:34)
[2017-12-21] MEDS: Vitamin D3 2,000 IU SGL PO SCH (09:34)
[2017-12-21] MEDS: Dicyclomine 10 mg Cap PO SCH ×2 (09:43→21:27)
[2017-12-21] MEDS: Polyvinyl Alcohol Ophth Soln 15 mL Bottle EACH EYE SCH ×2 (10:48→16:59)
--- NOTE | 2017-12-21 11:36 | General Progress Note ---
Subjective - Review of Systems Events since last encounter: patient with c/o abd pain with h/o liver disease Objective - Results Result Diagrams: 12/20/17 17:16 12/20/17 17:16 Recent Labs: Laboratory Last Values WBC 3.2 Th/cmm (4.8-10.8) L 12/20/17 17:16 RBC 3.35 Mil/cmm (3.80-5.80) L 12/20/17 17:16 Hgb 9.8 gm/dL (12-16) L 12/20/17 17:16 Hct 29.1 % (41.0-60) L 12/20/17 17:16 MCV 86.8 fl (80-99) 12/20/17 17:16 MCH 29.1 pg (27.0-31.0) 12/20/17 17:16 MCHC Differential 33.6 pg (28.0-36.0) 12/20/17 17:16 RDW 14.4 % (11.5-20.0) 12/20/17 17:16 Plt Count 81 Th/cmm (150-400) L 12/20/17 17:16 MPV 6.9 fl 12/20/17 17:16 Neutrophils % 41.0 % (40.0-80.0) 12/20/17 17:16 Lymphocytes % 41.3 % (20.0-50.0) 12/20/17 17:16 Monocytes % 13.0 % (2.0-10.0) H 12/20/17 17:16 Eosinophils % 3.2 % (0.0-5.0) 12/20/17 17:16 Basophils % 1.5 % (0.0-2.0) 12/20/17 17:16 PT 15.8 SECONDS (9.5-11.5) H 12/20/17 17:16 INR 1.49 (0.5-1.4) H 12/20/17 17:16 Sodium 131 mEq/L (136-145) L 12/20/17 17:16 Potassium 3.3 mEq/L (3.5-5.1) L 12/20/17 17:16 Chloride 103 mEq/L (98-107) 12/20/17 17:16 Carbon Dioxide 22.1 mEq/L (21.0-31.0) 12/20/17 17:16 Anion Gap 9.2 (7.0-16.0) 12/20/17 17:16 BUN 4 mg/dL (7-25) L 12/20/17 17:16 Creatinine 0.6 mg/dL (0.7-1.3) L 12/20/17 17:16 Est GFR ( Amer) > 60.0 ml/min (>90) 12/20/17 17:16 Est GFR (Non-Af Amer) > 60.0 ml/min 12/20/17 17:16 BUN/Creatinine Ratio 6.7 12/20/17 17:16 Glucose 112 mg/dL (70-105) H 12/20/17 17:16 Whole Bld Lactic Acid 1.56 mmol/L (0.60-1.99) 12/20/17 17:49 Calcium 7.9 mg/dL (8.6-10.3) L 12/20/17 17:16 Total Bilirubin 1.0 mg/dL (0.3-1.0) 12/20/17 17:16 AST 31 U/L (13-39) 12/20/17 17:16 ALT 12 U/L (7-52) 12/20/17 17:16 Alkaline Phosphatase 64 U/L (34-104) 12/20/17 17:16 Creatine Kinase 31 U/L (30-223) 12/20/17 17:16 Troponin I 0.02 ng/mL (0.01-0.05) 12/20/17 17:16 B-Natriuretic Peptide 36.5 pg/mL (5.0-100.0) 12/20/17 17:16 Total Protein 5.9 gm/dL (6.0-8.3) L 12/20/17 17:16 Albumin 2.3 gm/dL (4.2-5.5) L 12/20/17 17:16 Globulin 3.6 gm/dL 12/20/17 17:16 Albumin/Globulin Ratio 0.6 (1.0-1.8) L 12/20/17 17:16 Triglycerides 89 mg/dL (<150) 12/20/17 17:16 Cholesterol 109 mg/dL (<200) 12/20/17 17:16 LDL Cholesterol Direct 69 mg/dL (75-193) L 12/20/17 17:16 HDL Cholesterol 11 mg/dL (23-92) L 12/20/17 17:16 Amylase 21 U/L (29-103) L 12/20/17 17:16 Lipase 7 U/L (11-82) L 12/20/17 17:16 - Physical Exam Vitals and I&O: Vital Signs Temp 98.7 F 12/21/17 08:00 Pulse 69 12/21/17 08:00 Resp 18 12/21/17 08:00 BP 113/66 12/21/17 08:00 Pulse Ox 97 12/21/17 08:00 Intake & Output 12/20/17 12/21/17 12/21/17 18:59 06:59 18:59 Intake Total 515 Balance 515 Weight (lbs) 79.379 kg 84.822 kg Intake: Intake, IV Amount 515 Sodium Chloride 0.9% 1, 515 000 ml @ 100 mls/hr IV . Q10H ONE Rx#:[id number] Other: Weight Source Patient stated Bedscale Active Medications: Current Medications Artificial Tears (Artificial Tears Ophth Soln) 1 drop EACH EYE BID [facility] Stop: 02/19/18 08:59 Last Admin: 12/21/17 10:48 Dose: 1 drop Dicyclomine HCl (Bentyl) 20 mg PO Q12H [facility] Stop: 02/19/18 07:29 Last Admin: 12/21/17 09:43 Dose: 20 mg Diphenhydramine HCl (Benadryl) 25 mg PO Q8H PRN PRN Reason: Itching Stop: 02/19/18 07:18 Ferrous Sulfate (Iron) 325 mg PO DAILY [facility] Stop: 02/19/18 08:59 Last Admin: 12/21/17 09:34 Dose: 325 mg Hydromorphone HCl (Dilaudid) 1 mg IVP Q4HR PRN PRN Reason: Abdominal Pain Stop: 02/18/18 20:56 Last Admin: 12/21/17 06:22 Dose: 1 mg Hydromorphone HCl (Dilaudid) 2 mg PO Q4HR PRN PRN Reason: Pain (Severe) Stop: 02/19/18 07:18 Last Admin: 12/21/17 09:43 Dose: 2 mg Hydroxyzine HCl (Atarax) 25 mg PO TID [facility]; Protocol Stop: 02/19/18 08:59 Last Admin: 12/21/17 09:34 Dose: 25 mg Lactulose (Cephulac) 60 gm PO QID [facility] Stop: 02/19/18 08:59 Last Admin: 12/21/17 09:33 Dose: Not Given Levocarnitine (Carnitor) 330 mg PO BID [facility] Stop: 02/19/18 08:59 Last Admin: 12/21/17 10:48 Dose: 330 mg Ondansetron HCl (Zofran) 4 mg IV Q4H PRN PRN Reason: Nausea / Vomiting Stop: 02/18/18 20:57 Vitamin D (Vitamin D3) 2,000 iu PO DAILY [facility] Stop: 02/19/18 08:59 Last Admin: 12/21/17 09:34 Dose: 2,000 iu - Procedures Procedures: Procedures Procedure Code Date DRAINAGE OF PERITONEAL CAVITY, PERCUTANEOUS APPROACH [id number] 11/28/17 EXCISION OF DUODENUM, ENDO, DIAGN [id number] 06/06/17 EXCISION OF STOMACH, ENDO, DIAGN [id number] 06/06/17 EXCISION OF TRANSVERSE COLON, ENDO [id number] 06/06/17
[2017-12-21] MEDS ORDERED: Non-Formulary Item 1 EA (Melatonin [Melatonin] 6 MG) PO SCH (21:00)
[2017-12-22] MEDS: HYDROmorphone 1 mg/mL 1mL Syr IVP PRN ×4 (03:44→23:19)
[2017-12-22 06:17] LABS: ANION GAP 9.5 (7.0-16.0); BUN - UREA NITROGEN 5 mg/dL (7-25); CALCIUM SERUM 7.6 mg/dL (8.6-10.3); CARBON DIOXIDE 21.1 mEq/L (21.0-31.0); CHLORIDE 105 mEq/L (98-107); CREATININE - SERUM 0.6 mg/dL (0.7-1.3); GFR AFRICAN-AMERICAN > 60.0 ml/min (>90); GFR NON AFRICAN-AMERICAN > 60.0 ml/min; GLUCOSE 93 mg/dL (70-105); POTASSIUM SERUM 3.6 mEq/L (3.5-5.1); SODIUM SERUM 132 mEq/L (136-145)
[2017-12-22 06:36] LABS: % EOSINOPHILS 3.1 % (0.0-5.0); % MONOCYTES 10.2 % (2.0-10.0)
[2017-12-22] MEDS: Dicyclomine 10 mg Cap PO SCH ×2 (06:46→20:55)
[2017-12-22 06:52] LABS: % LYMPHOCYTES 18.8 % (20.0-50.0); % NEUTROPHILS 66.9 % (40.0-80.0); EOSINOPHILE ABSOLUTE 0.2 Th/cmm (0.1-0.4); HEMATOCRIT 27.4 % (41.0-60); HEMOGLOBIN 9.2 gm/dL (12-16); LYMPHOCYTE ABSOLUTE 0.9 Th/cmm (1.5-3.0); MEAN CELL VOLUME 86.7 fl (80-99); MEAN CORPUSCULAR HEMOGLOBIN 29.2 pg (27.0-31.0); MEAN CORPUSCULAR HGB CONC 33.7 pg (28.0-36.0); MEAN PLATELET VOLUME 7.7 fl; MONOCYTE ABSOLUTE 0.5 Th/cmm (0.3-1.0); NEUTROPHILE ABSOLUTE 3.4 Th/cmm (1.8-8.0); PLATELET COUNT 68 Th/cmm (150-400); RED BLOOD COUNT 3.16 Mil/cmm (3.80-5.80); RED CELL DISTRIBUTION WIDTH 14.1 % (11.5-20.0)
[2017-12-22] MEDS: Ferrous Sulfate 325 MG TAB PO SCH (09:38)
[2017-12-22] MEDS: Lactulose 10 Gm/15 mL 30mL UDC PO SCH ×3 (09:42→17:44)
[2017-12-22] MEDS: Vitamin D3 2,000 IU SGL PO SCH (09:56)
[2017-12-22] MEDS: Polyvinyl Alcohol Ophth Soln 15 mL Bottle EACH EYE SCH ×2 (09:56→17:43)
--- NOTE | 2017-12-22 12:39 | Diagnostic Imaging Report ---
Ultrasound-guided paracentesis HISTORY: Ascites COMPARISON: Previous paracentesis procedure on 12/05/2017 FINDINGS: Informed consent was obtained and sterile techniques were utilized. Using ultrasound guidance, 7 L of serous fluid was drained from the right lower quadrant. The patient tolerated the procedure with no immediate complications. IMPRESSION: Successful ultrasound guided paracentesis as above.
--- NOTE | 2017-12-22 12:43 | Consultation ---
DATE OF CONSULTATION: 12/21/2017 REASON FOR CONSULT: Ascites. HISTORY OF PRESENT ILLNESS: This consult was obtained through the courtesy of Dr. Nair for this 67-year-old with decompensated cirrhosis with multiple admissions to the hospital for abdominal distention, ascites. The patient also has a drug seeking behavior. He also has hepatitis C. He has episodes of hepatic encephalopathy. The patient presented with another admission for the same reason for increased abdominal pain, abdominal girth, worsening of his jaundice. PAST MEDICAL HISTORY: Hepatitis C, bipolar disorder, asthma, COPD, hyperlipidemia, peptic ulcer disease, GERD, arthritis, decompensated cirrhosis. PAST SURGICAL HISTORY: Not known. SOCIAL HISTORY: The patient is ex-substance abuser. At this time, he lives in a senior care. FAMILY HISTORY: Noncontributory. ALLERGIES: No known drug allergies. MEDICATIONS: The patient is on dicyclomine, Benadryl, iron, Dilaudid, Atarax, lactulose, levocarnitine, Zofran, vitamin D3. REVIEW OF SYSTEMS: Complaining of pain all over. No weight loss. No GI bleed. PHYSICAL EXAMINATION: GENERAL: The patient is awake, oriented to self and place. VITAL SIGNS: Blood pressure is 105/61, heart rate 77, respiratory rate 18, temperature is 98.0. HEAD AND NECK: Pupils reactive to light and accommodation. Extraocular muscles could not be tested. Sclerae are anicteric. Conjunctivae not pale. Oral cavity, no lesion. NECK: Supple. CHEST: Good air entry. LUNGS: Clear to auscultation. CARDIOVASCULAR: Regular rate and rhythm. No murmur or gallop. ABDOMEN: Distended. There is ascites. There is diffuse tenderness. EXTREMITIES: No edema. Generally the patient looks cachectic, but is mostly due to muscle wasting from the cirrhosis. LABORATORY AND DIAGNOSTIC DATA: White count 3.2, H and H 9.8 and 29.1 with platelets of 81. PT is 15.8 seconds. Potassium 3.3, albumin 2.3. IMPRESSION: A 67-year-old with decompensated cirrhosis presenting with ascites. ASSESSMENT AND PLAN: 1. Decompensated cirrhosis. The patient needs to be monitored as an outpatient. He needs to be on alpha fetoprotein and ultrasound every 6 months. He should have a paracentesis p.r.n. This could be arranged with Radiology. Also might be considered for PleurX. He also might be considered for transplant, but he needs to be able to follow up with them. 2. Ascites secondary to decompensated cirrhosis. Paracentesis p.r.n. Will start diuretics with Lasix 40, Aldactone 100. We will monitor electrolytes, at this time potassium is 3.3 but hopefully with Aldactone and Lasix it will stabilize. 3. Anemia, stable, had GI workup before. Continue to monitor. Other medical problems per Dr. Nair. Thank you Dr. Nair for allowing me to participate in the care of the patient. If you have any further questions, please let me know. JOB# [id number]
--- NOTE | 2017-12-22 16:40 | GI Progress Note ---
Subjective - Review of Systems Service Date: 12/22/17 Events since last encounter: Had paracentesis Subjective: C/O abd pain Objective - Results Result Diagrams: 12/22/17 05:25 12/22/17 05:25 Recent Labs: Laboratory Last Values WBC 5.0 Th/cmm (4.8-10.8) 12/22/17 05:25 RBC 3.16 Mil/cmm (3.80-5.80) L 12/22/17 05:25 Hgb 9.2 gm/dL (12-16) L 12/22/17 05:25 Hct 27.4 % (41.0-60) L 12/22/17 05:25 MCV 86.7 fl (80-99) 12/22/17 05:25 MCH 29.2 pg (27.0-31.0) 12/22/17 05:25 MCHC Differential 33.7 pg (28.0-36.0) 12/22/17 05:25 RDW 14.1 % (11.5-20.0) 12/22/17 05:25 Plt Count 68 Th/cmm (150-400) L 12/22/17 05:25 MPV 7.7 fl 12/22/17 05:25 Neutrophils % 66.9 % (40.0-80.0) 12/22/17 05:25 Lymphocytes % 18.8 % (20.0-50.0) L 12/22/17 05:25 Monocytes % 10.2 % (2.0-10.0) H 12/22/17 05:25 Eosinophils % 3.1 % (0.0-5.0) 12/22/17 05:25 Basophils % 1.0 % (0.0-2.0) 12/22/17 05:25 PT 15.8 SECONDS (9.5-11.5) H 12/20/17 17:16 INR 1.49 (0.5-1.4) H 12/20/17 17:16 Sodium 132 mEq/L (136-145) L 12/22/17 05:25 Potassium 3.6 mEq/L (3.5-5.1) 12/22/17 05:25 Chloride 105 mEq/L (98-107) 12/22/17 05:25 Carbon Dioxide 21.1 mEq/L (21.0-31.0) 12/22/17 05:25 Anion Gap 9.5 (7.0-16.0) 12/22/17 05:25 BUN 5 mg/dL (7-25) L 12/22/17 05:25 Creatinine 0.6 mg/dL (0.7-1.3) L 12/22/17 05:25 Est GFR ( Amer) > 60.0 ml/min (>90) 12/22/17 05:25 Est GFR (Non-Af Amer) > 60.0 ml/min 12/22/17 05:25 BUN/Creatinine Ratio 8.3 12/22/17 05:25 Glucose 93 mg/dL (70-105) 12/22/17 05:25 Whole Bld Lactic Acid 1.56 mmol/L (0.60-1.99) 12/20/17 17:49 Calcium 7.6 mg/dL (8.6-10.3) L 12/22/17 05:25 Total Bilirubin 1.0 mg/dL (0.3-1.0) 12/20/17 17:16 AST 31 U/L (13-39) 12/20/17 17:16 ALT 12 U/L (7-52) 12/20/17 17:16 Alkaline Phosphatase 64 U/L (34-104) 12/20/17 17:16 Creatine Kinase 31 U/L (30-223) 12/20/17 17:16 Troponin I 0.02 ng/mL (0.01-0.05) 12/20/17 17:16 B-Natriuretic Peptide 36.5 pg/mL (5.0-100.0) 12/20/17 17:16 Total Protein 5.9 gm/dL (6.0-8.3) L 12/20/17 17:16 Albumin 2.3 gm/dL (4.2-5.5) L 12/20/17 17:16 Globulin 3.6 gm/dL 12/20/17 17:16 Albumin/Globulin Ratio 0.6 (1.0-1.8) L 12/20/17 17:16 Triglycerides 89 mg/dL (<150) 12/20/17 17:16 Cholesterol 109 mg/dL (<200) 12/20/17 17:16 LDL Cholesterol Direct 69 mg/dL (75-193) L 12/20/17 17:16 HDL Cholesterol 11 mg/dL (23-92) L 12/20/17 17:16 Amylase 21 U/L (29-103) L 12/20/17 17:16 Lipase 7 U/L (11-82) L 12/20/17 17:16 - Physical Exam Vitals and I&O: Vital Signs Temp 97.4 F 12/22/17 11:59 Pulse 84 12/22/17 11:59 Resp 18 12/22/17 11:59 BP 129/63 12/22/17 11:59 Pulse Ox 98 12/22/17 11:59 Intake & Output 12/21/17 12/22/17 12/22/17 18:59 06:59 18:59 Intake Total 200 Output Total 3 Balance 197 Weight (lbs) 84.822 kg 85.729 kg Intake: Oral 200 Output: Stool 3 Other: # Voids 2 # Bowel Movements 3 Weight Source Bedscale Bedscale Active Medications: Current Medications Artificial Tears (Artificial Tears Oph Soln) 1 drop EACH EYE BID [facility] Stop: 02/19/18 08:59 Last Admin: 12/22/17 09:56 Dose: 1 drop Dicyclomine HCl (Bentyl) 20 mg PO Q12H [facility] Stop: 02/19/18 07:29 Last Admin: 12/22/17 06:46 Dose: Not Given Diphenhydramine HCl (Benadryl) 25 mg PO Q8H PRN PRN Reason: Itching Stop: 02/19/18 07:18 Last Admin: 12/21/17 21:27 Dose: 25 mg Ferrous Sulfate (Iron) 325 mg PO DAILY [facility] Stop: 02/19/18 08:59 Last Admin: 12/22/17 09:38 Dose: 325 mg Furosemide (Lasix) 40 mg IVP DAILY [facility] Stop: 02/19/18 15:14 Last Admin: 12/22/17 09:37 Dose: 40 mg Hydromorphone HCl (Dilaudid) 1 mg IVP Q4HR PRN PRN Reason: Abdominal Pain Stop: 02/18/18 20:56 Last Admin: 12/22/17 12:17 Dose: 1 mg Hydromorphone HCl (Dilaudid) 2 mg PO Q4HR PRN PRN Reason: Pain (Severe) Stop: 02/19/18 07:18 Last Admin: 12/22/17 16:18 Dose: 2 mg Hydroxyzine HCl (Atarax) 25 mg PO TID [facility]; Protocol Stop: 02/19/18 08:59 Last Admin: 12/22/17 14:32 Dose: 25 mg Lactulose (Cephulac) 60 gm PO QID [facility] Stop: 02/19/18 08:59 Last Admin: 12/22/17 14:32 Dose: 40 gm Levocarnitine (Carnitor) 330 mg PO BID [facility] Stop: 02/19/18 08:59 Last Admin: 12/22/17 09:56 Dose: Not Given Ondansetron HCl (Zofran) 4 mg IV Q4H PRN PRN Reason: Nausea / Vomiting Stop: 02/18/18 20:57 Last Admin: 12/21/17 22:41 Dose: 4 mg Spironolactone (Aldactone) 100 mg PO DAILY [facility] Stop: 02/19/18 15:14 Last Admin: 12/22/17 09:57 Dose: Not Given Vitamin D (Vitamin D3) 2,000 iu PO DAILY [facility] Stop: 02/19/18 08:59 Last Admin: 12/22/17 09:56 Dose: Not Given General: Alert, Mild distress HEENT: Atraumatic Cardiovascular: Regular rate, Normal S1, Normal S2 Lungs: Clear to auscultation Abdomen: Bowel sounds, Soft - Procedures Procedures: Procedures Procedure Code Date DRAINAGE OF PERITONEAL CAVITY, PERCUTANEOUS APPROACH [id number] 12/20/17 EXCISION OF DUODENUM, ENDO, DIAGN [id number] 06/06/17 EXCISION OF STOMACH, ENDO, DIAGN [id number] 06/06/17 EXCISION OF TRANSVERSE COLON, ENDO [id number] 06/06/17 Assessment/Plan - Assessment Assessment: 1. Decompensated cirrhosis 2. Ascites 3. Abdominal pain, 4. Anemia - Plan Plan: 1. Decompensated cirrhosis Paracentesis PRN Diuresis US and AFP every 6 months 2. Ascites S/P paracentesis Diuresis. 3. Abdominal pain, Chronic Extensive negative W/U 4. Anemia Stable S/P EGD/Colon this year
[2017-12-23] MEDS: HYDROmorphone 1 mg/mL 1mL Syr IVP PRN ×4 (03:11→21:00)
[2017-12-23] MEDS: Lactulose 10 Gm/15 mL 30mL UDC PO SCH ×6 (03:51→21:42)
[2017-12-23 06:27] LABS: % BASOPHILS 2.2 % (0.0-2.0); % EOSINOPHILS 5.8 % (0.0-5.0); % LYMPHOCYTES 32.3 % (20.0-50.0); % MONOCYTES 13.3 % (2.0-10.0); % NEUTROPHILS 46.4 % (40.0-80.0); BASOPHILE ABSOLUTE 0.1 Th/cumm (0-0.2); EOSINOPHILE ABSOLUTE 0.2 Th/cmm (0.1-0.4); HEMATOCRIT 24.9 % (41.0-60); HEMOGLOBIN 8.4 gm/dL (12-16); LYMPHOCYTE ABSOLUTE 1.1 Th/cmm (1.5-3.0); MEAN CELL VOLUME 86.7 fl (80-99); MEAN CORPUSCULAR HEMOGLOBIN 29.3 pg (27.0-31.0); MEAN CORPUSCULAR HGB CONC 33.8 pg (28.0-36.0); MEAN PLATELET VOLUME 7.6 fl; MONOCYTE ABSOLUTE 0.4 Th/cmm (0.3-1.0); NEUTROPHILE ABSOLUTE 1.5 Th/cmm (1.8-8.0); PLATELET COUNT 52 Th/cmm (150-400); RED BLOOD COUNT 2.87 Mil/cmm (3.80-5.80)
[2017-12-23 06:29] LABS: URINE MICROSCOPIC INDICATED? YES; URINE SOURCE CLEAN C
[2017-12-23 06:32] LABS: URINE BILIRUBIN NEGATIVE (NEGATIVE); URINE BLOOD NEGATIVE (NEGATIVE); URINE GLUCOSE (UA) NEGATIVE (NEGATIVE); URINE KETONE NEGATIVE (NEGATIVE); URINE LEUKOCYTE ESTERASE NEGATIVE (NEGATIVE); URINE NITRATE NEGATIVE (NEGATIVE); URINE PROTEIN NEGATIVE (NEGATIVE); URINE UROBILINOGEN 0.2 E.U./dL (0.2 - 1.0)
[2017-12-23 06:36] LABS: WHITE BLOOD COUNT 3.3 Th/cmm (4.8-10.8)
[2017-12-23 06:56] LABS: URINE CLARITY CLEAR (CLEAR); URINE COLOR YELLOW
[2017-12-23 06:59] LABS: URINE BACTERIA NONE SEEN /hpf (NONE SEEN); URINE EPITHELIAL CELLS RARE /lpf (FEW); URINE RBC NONE SEEN /hpf (0-5); URINE WBC 0-2 /hpf (0-5)
[2017-12-23 07:02] LABS: ANION GAP 7.7 (7.0-16.0); BUN - UREA NITROGEN 5 mg/dL (7-25); CALCIUM SERUM 7.5 mg/dL (8.6-10.3); CARBON DIOXIDE 22.6 mEq/L (21.0-31.0); CHLORIDE 103 mEq/L (98-107); CREATININE - SERUM 0.5 mg/dL (0.7-1.3); GFR AFRICAN-AMERICAN > 60.0 ml/min (>90); GFR NON AFRICAN-AMERICAN > 60.0 ml/min; GLUCOSE 99 mg/dL (70-105); POTASSIUM SERUM 3.3 mEq/L (3.5-5.1); SODIUM SERUM 130 mEq/L (136-145)
[2017-12-23] MEDS: Vitamin D3 2,000 IU SGL PO SCH (08:59)
[2017-12-23] MEDS: Ferrous Sulfate 325 MG TAB PO SCH (08:59)
[2017-12-23] MEDS: Polyvinyl Alcohol Ophth Soln 15 mL Bottle EACH EYE SCH ×2 (09:00→16:03)
--- NOTE | 2017-12-23 09:01 | GI Progress Note ---
Subjective - Review of Systems Service Date: 12/23/17 Subjective: Doing ok today, ate breakfast. Some chronic abd pain persists Objective - Results Result Diagrams: 12/23/17 05:52 12/23/17 05:52 Recent Labs: Laboratory Last Values WBC 3.3 Th/cmm (4.8-10.8) L 12/23/17 05:52 RBC 2.87 Mil/cmm (3.80-5.80) L 12/23/17 05:52 Hgb 8.4 gm/dL (12-16) L 12/23/17 05:52 Hct 24.9 % (41.0-60) L 12/23/17 05:52 MCV 86.7 fl (80-99) 12/23/17 05:52 MCH 29.3 pg (27.0-31.0) 12/23/17 05:52 MCHC Differential 33.8 pg (28.0-36.0) 12/23/17 05:52 RDW 14.0 % (11.5-20.0) 12/23/17 05:52 Plt Count 52 Th/cmm (150-400) L 12/23/17 05:52 MPV 7.6 fl 12/23/17 05:52 Neutrophils % 46.4 % (40.0-80.0) 12/23/17 05:52 Lymphocytes % 32.3 % (20.0-50.0) 12/23/17 05:52 Monocytes % 13.3 % (2.0-10.0) H 12/23/17 05:52 Eosinophils % 5.8 % (0.0-5.0) H 12/23/17 05:52 Basophils % 2.2 % (0.0-2.0) H 12/23/17 05:52 PT 15.8 SECONDS (9.5-11.5) H 12/20/17 17:16 INR 1.49 (0.5-1.4) H 12/20/17 17:16 Sodium 130 mEq/L (136-145) L 12/23/17 05:52 Potassium 3.3 mEq/L (3.5-5.1) L 12/23/17 05:52 Chloride 103 mEq/L (98-107) 12/23/17 05:52 Carbon Dioxide 22.6 mEq/L (21.0-31.0) 12/23/17 05:52 Anion Gap 7.7 (7.0-16.0) 12/23/17 05:52 BUN 5 mg/dL (7-25) L 12/23/17 05:52 Creatinine 0.5 mg/dL (0.7-1.3) L 12/23/17 05:52 Est GFR ( Amer) > 60.0 ml/min (>90) 12/23/17 05:52 Est GFR (Non-Af Amer) > 60.0 ml/min 12/23/17 05:52 BUN/Creatinine Ratio 10.0 12/23/17 05:52 Glucose 99 mg/dL (70-105) 12/23/17 05:52 Whole Bld Lactic Acid 1.56 mmol/L (0.60-1.99) 12/20/17 17:49 Calcium 7.5 mg/dL (8.6-10.3) L 12/23/17 05:52 Total Bilirubin 1.0 mg/dL (0.3-1.0) 12/20/17 17:16 AST 31 U/L (13-39) 12/20/17 17:16 ALT 12 U/L (7-52) 12/20/17 17:16 Alkaline Phosphatase 64 U/L (34-104) 12/20/17 17:16 Ammonia 53 umol/L (16-53) 12/23/17 05:52 Creatine Kinase 31 U/L (30-223) 12/20/17 17:16 Troponin I 0.02 ng/mL (0.01-0.05) 12/20/17 17:16 B-Natriuretic Peptide 36.5 pg/mL (5.0-100.0) 12/20/17 17:16 Total Protein 5.9 gm/dL (6.0-8.3) L 12/20/17 17:16 Albumin 2.3 gm/dL (4.2-5.5) L 12/20/17 17:16 Globulin 3.6 gm/dL 12/20/17 17:16 Albumin/Globulin Ratio 0.6 (1.0-1.8) L 12/20/17 17:16 Triglycerides 89 mg/dL (<150) 12/20/17 17:16 Cholesterol 109 mg/dL (<200) 12/20/17 17:16 LDL Cholesterol Direct 69 mg/dL (75-193) L 12/20/17 17:16 HDL Cholesterol 11 mg/dL (23-92) L 12/20/17 17:16 Amylase 21 U/L (29-103) L 12/20/17 17:16 Lipase 7 U/L (11-82) L 12/20/17 17:16 Urine Source CLEAN C 12/23/17 06:20 Urine Color YELLOW 12/23/17 06:20 Urine Clarity CLEAR (CLEAR) 12/23/17 06:20 Urine pH 6.0 (4.6 - 8.0) 12/23/17 06:20 Ur Specific [place] 1.010 (1.005-1.030) 12/23/17 06:20 Urine Protein NEGATIVE mg/dL (NEGATIVE) 12/23/17 06:20 Urine Glucose (UA) NEGATIVE mg/dL (NEGATIVE) 12/23/17 06:20 Urine Ketones NEGATIVE mg/dL (NEGATIVE) 12/23/17 06:20 Urine Blood NEGATIVE (NEGATIVE) 12/23/17 06:20 Urine Nitrate NEGATIVE (NEGATIVE) 12/23/17 06:20 Urine Bilirubin NEGATIVE (NEGATIVE) 12/23/17 06:20 Urine Urobilinogen 0.2 E.U./dL (0.2 - 1.0) 12/23/17 06:20 Ur Leukocyte Esterase NEGATIVE (NEGATIVE) 12/23/17 06:20 Urine RBC NONE SEEN /hpf (0-5) 12/23/17 06:20 Urine WBC 0-2 /hpf (0-5) 12/23/17 06:20 Ur Epithelial Cells RARE /lpf (FEW) 12/23/17 06:20 Urine Bacteria NONE SEEN /hpf (NONE SEEN) 12/23/17 06:20 - Physical Exam Vitals and I&O: Vital Signs Temp 97.8 F 12/23/17 04:00 Pulse 87 12/23/17 04:00 Resp 19 12/23/17 05:56 BP 123/71 12/23/17 04:00 Pulse Ox 95 12/23/17 04:00 Intake & Output 12/22/17 12/23/17 12/23/17 18:59 06:59 18:59 Intake Total 240 Balance 240 Weight (lbs) 85.729 kg Intake: Oral 240 Other: # Voids 1 # Bowel Movements 0 Weight Source Bedscale Active Medications: Current Medications Artificial Tears (Artificial Tears Ophth Soln) 1 drop EACH EYE BID [facility] Stop: 02/19/18 08:59 Last Admin: 12/22/17 17:43 Dose: 1 drop Dicyclomine HCl (Bentyl) 20 mg PO Q12H [facility] Stop: 02/19/18 07:29 Last Admin: 12/22/17 20:55 Dose: Not Given Diphenhydramine HCl (Benadryl) 25 mg PO Q8H PRN PRN Reason: Itching Stop: 02/19/18 07:18 Last Admin: 12/21/17 21:27 Dose: 25 mg Ferrous Sulfate (Iron) 325 mg PO DAILY [facility] Stop: 02/19/18 08:59 Last Admin: 12/22/17 09:38 Dose: 325 mg Furosemide (Lasix) 40 mg IVP DAILY [facility] Stop: 02/19/18 15:14 Last Admin: 12/22/17 09:37 Dose: 40 mg Hydromorphone HCl (Dilaudid) 1 mg IVP Q4HR PRN PRN Reason: Abdominal Pain Stop: 02/18/18 20:56 Last Admin: 12/23/17 07:25 Dose: 1 mg Hydromorphone HCl (Dilaudid) 2 mg PO Q4HR PRN PRN Reason: Pain (Severe) Stop: 02/19/18 07:18 Last Admin: 12/23/17 05:14 Dose: 2 mg Hydroxyzine HCl (Atarax) 25 mg PO TID [facility]; Protocol Stop: 02/19/18 08:59 Last Admin: 12/22/17 20:54 Dose: Not Given Lactulose (Cephulac) 60 gm PO QID [facility] Stop: 02/19/18 08:59 Last Admin: 12/23/17 03:51 Dose: Not Given Levocarnitine (Carnitor) 330 mg PO BID [facility] Stop: 02/19/18 08:59 Last Admin: 12/22/17 17:44 Dose: Not Given Ondansetron HCl (Zofran) 4 mg IV Q4H PRN PRN Reason: Nausea / Vomiting Stop: 02/18/18 20:57 Last Admin: 06/21/18 22:41 Dose: 4 mg Spironolactone (Aldactone) 100 mg PO DAILY [facility] Stop: 02/19/18 15:14 Last Admin: 12/22/17 09:57 Dose: Not Given Vitamin D (Vitamin D3) 2,000 iu PO DAILY [facility] Stop: 02/19/18 08:59 Last Admin: 12/22/17 09:56 Dose: Not Given General: Alert, Mild distress HEENT: Atraumatic Cardiovascular: Regular rate, Normal S1, Normal S2 Lungs: Clear to auscultation Abdomen: Bowel sounds, Soft, Tender, Hepatomegaly, Distended, no Rebound, no Mass, no Guarding - Procedures Procedures: Procedures Procedure Code Date DRAINAGE OF PERITONEAL CAVITY, PERCUTANEOUS APPROACH [id number] 12/20/17 EXCISION OF DUODENUM, ENDO, DIAGN [id number] 06/06/17 EXCISION OF STOMACH, ENDO, DIAGN [id number] 06/06/17 EXCISION OF TRANSVERSE COLON, ENDO [id number] 06/06/17 Assessment/Plan - Assessment Assessment: 1. Decompensated cirrhosis 2. Ascites 3. Abdominal pain, 4. Anemia - Plan 1. Decompensated cirrhosis Paracentesis PRN. He had this done on this admission Diuresis US and AFP every 6 months 2. Ascites S/P paracentesis Diuresis. 3. Abdominal pain, Chronic Extensive negative W/U 4. Anemia Stable S/P EGD/Colon this year
[2017-12-23] MEDS: Dicyclomine 10 mg Cap PO SCH ×2 (09:04→18:49)
[2017-12-24] MEDS: HYDROmorphone 1 mg/mL 1mL Syr IVP PRN ×6 (03:53→23:54)
--- NOTE | 2017-12-24 08:17 | GI Progress Note ---
Subjective - Review of Systems Service Date: 12/24/17 Subjective: Reports his appetite is down, asks about G tube Objective - Results Result Diagrams: 12/23/17 05:52 12/23/17 05:52 Recent Labs: Laboratory Last Values WBC 3.3 Th/cmm (4.8-10.8) L 12/23/17 05:52 RBC 2.87 Mil/cmm (3.80-5.80) L 12/23/17 05:52 Hgb 8.4 gm/dL (12-16) L 12/23/17 05:52 Hct 24.9 % (41.0-60) L 12/23/17 05:52 MCV 86.7 fl (80-99) 12/23/17 05:52 MCH 29.3 pg (27.0-31.0) 12/23/17 05:52 MCHC Differential 33.8 pg (28.0-36.0) 12/23/17 05:52 RDW 14.0 % (11.5-20.0) 12/23/17 05:52 Plt Count 52 Th/cmm (150-400) L 12/23/17 05:52 MPV 7.6 fl 12/23/17 05:52 Neutrophils % 46.4 % (40.0-80.0) 12/23/17 05:52 Lymphocytes % 32.3 % (20.0-50.0) 12/23/17 05:52 Monocytes % 13.3 % (2.0-10.0) H 12/23/17 05:52 Eosinophils % 5.8 % (0.0-5.0) H 12/23/17 05:52 Basophils % 2.2 % (0.0-2.0) H 12/23/17 05:52 PT 15.8 SECONDS (9.5-11.5) H 12/20/17 17:16 INR 1.49 (0.5-1.4) H 12/20/17 17:16 Sodium 130 mEq/L (136-145) L 12/23/17 05:52 Potassium 3.3 mEq/L (3.5-5.1) L 12/23/17 05:52 Chloride 103 mEq/L (98-107) 12/23/17 05:52 Carbon Dioxide 22.6 mEq/L (21.0-31.0) 12/23/17 05:52 Anion Gap 7.7 (7.0-16.0) 12/23/17 05:52 BUN 5 mg/dL (7-25) L 12/23/17 05:52 Creatinine 0.5 mg/dL (0.7-1.3) L 12/23/17 05:52 Est GFR ( Amer) > 60.0 ml/min (>90) 12/23/17 05:52 Est GFR (Non-Af Amer) > 60.0 ml/min 12/23/17 05:52 BUN/Creatinine Ratio 10.0 12/23/17 05:52 Glucose 99 mg/dL (70-105) 12/23/17 05:52 Whole Bld Lactic Acid 1.56 mmol/L (0.60-1.99) 12/20/17 17:49 Calcium 7.5 mg/dL (8.6-10.3) L 12/23/17 05:52 Total Bilirubin 1.0 mg/dL (0.3-1.0) 12/20/17 17:16 AST 31 U/L (13-39) 12/20/17 17:16 ALT 12 U/L (7-52) 12/20/17 17:16 Alkaline Phosphatase 64 U/L (34-104) 12/20/17 17:16 Ammonia 53 umol/L (16-53) 12/23/17 05:52 Creatine Kinase 31 U/L (30-223) 12/20/17 17:16 Troponin I 0.02 ng/mL (0.01-0.05) 12/20/17 17:16 B-Natriuretic Peptide 36.5 pg/mL (5.0-100.0) 12/20/17 17:16 Total Protein 5.9 gm/dL (6.0-8.3) L 12/20/17 17:16 Albumin 2.3 gm/dL (4.2-5.5) L 12/20/17 17:16 Globulin 3.6 gm/dL 12/20/17 17:16 Albumin/Globulin Ratio 0.6 (1.0-1.8) L 12/20/17 17:16 Triglycerides 89 mg/dL (<150) 12/20/17 17:16 Cholesterol 109 mg/dL (<200) 12/20/17 17:16 LDL Cholesterol Direct 69 mg/dL (75-193) L 12/20/17 17:16 HDL Cholesterol 11 mg/dL (23-92) L 12/20/17 17:16 Amylase 21 U/L (29-103) L 12/20/17 17:16 Lipase 7 U/L (11-82) L 12/20/17 17:16 Urine Source CLEAN C 12/23/17 06:20 Urine Color YELLOW 12/23/17 06:20 Urine Clarity CLEAR (CLEAR) 12/23/17 06:20 Urine pH 6.0 (4.6 - 8.0) 12/23/17 06:20 Ur Specific [place] 1.010 (1.005-1.030) 12/23/17 06:20 Urine Protein NEGATIVE mg/dL (NEGATIVE) 12/23/17 06:20 Urine Glucose (UA) NEGATIVE mg/dL (NEGATIVE) 12/23/17 06:20 Urine Ketones NEGATIVE mg/dL (NEGATIVE) 12/23/17 06:20 Urine Blood NEGATIVE (NEGATIVE) 12/23/17 06:20 Urine Nitrate NEGATIVE (NEGATIVE) 12/23/17 06:20 Urine Bilirubin NEGATIVE (NEGATIVE) 12/23/17 06:20 Urine Urobilinogen 0.2 E.U./dL (0.2 - 1.0) 12/23/17 06:20 Ur Leukocyte Esterase NEGATIVE (NEGATIVE) 12/23/17 06:20 Urine RBC NONE SEEN /hpf (0-5) 12/23/17 06:20 Urine WBC 0-2 /hpf (0-5) 12/23/17 06:20 Ur Epithelial Cells RARE /lpf (FEW) 12/23/17 06:20 Urine Bacteria NONE SEEN /hpf (NONE SEEN) 12/23/17 06:20 - Physical Exam Vitals and I&O: Vital Signs Temp 97.2 F 12/24/17 07:48 Pulse 71 12/24/17 07:48 Resp 18 12/24/17 07:48 BP 112/68 12/24/17 07:48 Pulse Ox 99 12/24/17 07:48 Intake & Output 12/23/17 12/24/17 12/24/17 18:59 06:59 18:59 Intake Total 200 Output Total 2 Balance 198 Weight (lbs) 85.275 kg Intake: Oral 200 Output: Stool 2 Other: # Voids 2 # Bowel Movements 2 Stool Characteristics Green Soft Weight Source Bedscale Active Medications: Current Medications Artificial Tears (Artificial Tears Ophth Soln) 1 drop EACH EYE BID [facility] Stop: 02/19/18 08:59 Last Admin: 12/23/17 16:03 Dose: 1 drop Dicyclomine HCl (Bentyl) 20 mg PO Q12H [facility] Stop: 02/19/18 07:29 Last Admin: 12/23/17 18:49 Dose: 20 mg Diphenhydramine HCl (Benadryl) 25 mg PO Q8H PRN PRN Reason: Itching Stop: 02/19/18 07:18 Last Admin: 12/23/17 21:28 Dose: 25 mg Ferrous Sulfate (Iron) 325 mg PO DAILY [facility] Stop: 02/19/18 08:59 Last Admin: 12/23/17 08:59 Dose: 325 mg Furosemide (Lasix) 40 mg IVP DAILY [facility] Stop: 02/19/18 15:14 Last Admin: 12/23/17 09:00 Dose: 40 mg Hydromorphone HCl (Dilaudid) 1 mg IVP Q4HR PRN PRN Reason: Abdominal Pain Stop: 02/18/18 20:56 Last Admin: 12/24/17 06:03 Dose: 1 mg Hydromorphone HCl (Dilaudid) 2 mg PO Q4HR PRN PRN Reason: Pain (Severe) Stop: 02/19/18 07:18 Last Admin: 12/23/17 18:50 Dose: 2 mg Hydroxyzine HCl (Atarax) 25 mg PO TID [facility]; Protocol Stop: 02/19/18 08:59 Last Admin: 12/23/17 21:28 Dose: 25 mg Lactulose (Cephulac) 60 gm PO QID [facility] Stop: 02/19/18 08:59 Last Admin: 12/23/17 21:42 Dose: Not Given Levocarnitine (Carnitor) 330 mg PO BID [facility] Stop: 02/19/18 08:59 Last Admin: 12/23/17 16:03 Dose: 330 mg Ondansetron HCl (Zofran) 4 mg IV Q4H PRN PRN Reason: Nausea / Vomiting Stop: 02/18/18 20:57 Last Admin: 12/21/17 22:41 Dose: 4 mg Spironolactone (Aldactone) 100 mg PO DAILY [facility] Stop: 02/19/18 15:14 Last Admin: 12/23/17 08:59 Dose: 100 mg Vitamin D (Vitamin D3) 2,000 iu PO DAILY [facility] Stop: 02/19/18 08:59 Last Admin: 12/23/17 08:59 Dose: 2,000 iu General: Alert, Mild distress HEENT: Atraumatic Cardiovascular: Regular rate Lungs: Clear to auscultation Abdomen: Bowel sounds, Soft, Tender, Hepatomegaly, Distended, no Rebound, no Mass, no Guarding - Procedures Procedures: Procedures Procedure Code Date DRAINAGE OF PERITONEAL CAVITY, PERCUTANEOUS APPROACH [id number] 12/20/17 EXCISION OF DUODENUM, ENDO, DIAGN [id number] 06/06/17 EXCISION OF STOMACH, ENDO, DIAGN [id number] 06/06/17 EXCISION OF TRANSVERSE COLON, ENDO [id number] 06/06/17 Assessment/Plan - Assessment Assessment: 1. Decompensated cirrhosis 2. Ascites 3. Abdominal pain, 4. Anemia - Plan 1. Decompensated cirrhosis Paracentesis PRN. He had this done on this admission Diuresis US and AFP every 6 months 2. Ascites S/P paracentesis Diuresis. 3. Abdominal pain, Chronic Extensive negative W/U 4. Anemia Stable S/P EGD/Colon this year 5. Anorexia - G tube in this pt is high risk for leak and persistant gastrocutaneous fistula malfunction given his ascites. Would advise against this unless absolutely necessary - trial of remeron 15mg hs - encourage po intake
[2017-12-24] MEDS: Polyvinyl Alcohol Ophth Soln 15 mL Bottle EACH EYE SCH ×2 (09:23→16:01)
[2017-12-24] MEDS: Dicyclomine 10 mg Cap PO SCH ×2 (09:24→20:13)
[2017-12-24] MEDS: Vitamin D3 2,000 IU SGL PO SCH (09:24)
[2017-12-24] MEDS: Lactulose 10 Gm/15 mL 30mL UDC PO SCH ×5 (09:25→23:53)
[2017-12-24] MEDS: Ferrous Sulfate 325 MG TAB PO SCH (09:25)
--- NOTE | 2017-12-24 11:49 | General Progress Note ---
Subjective - Review of Systems Events since last encounter: awake in no distress Objective - Results Result Diagrams: 12/23/17 05:52 12/23/17 05:52 Recent Labs: Laboratory Last Values WBC 3.3 Th/cmm (4.8-10.8) L 12/23/17 05:52 RBC 2.87 Mil/cmm (3.80-5.80) L 12/23/17 05:52 Hgb 8.4 gm/dL (12-16) L 12/23/17 05:52 Hct 24.9 % (41.0-60) L 12/23/17 05:52 MCV 86.7 fl (80-99) 12/23/17 05:52 MCH 29.3 pg (27.0-31.0) 12/23/17 05:52 MCHC Differential 33.8 pg (28.0-36.0) 12/23/17 05:52 RDW 14.0 % (11.5-20.0) 12/23/17 05:52 Plt Count 52 Th/cmm (150-400) L 12/23/17 05:52 MPV 7.6 fl 12/23/17 05:52 Neutrophils % 46.4 % (40.0-80.0) 12/23/17 05:52 Lymphocytes % 32.3 % (20.0-50.0) 12/23/17 05:52 Monocytes % 13.3 % (2.0-10.0) H 12/23/17 05:52 Eosinophils % 5.8 % (0.0-5.0) H 12/23/17 05:52 Basophils % 2.2 % (0.0-2.0) H 12/23/17 05:52 PT 15.8 SECONDS (9.5-11.5) H 12/20/17 17:16 INR 1.49 (0.5-1.4) H 12/20/17 17:16 Sodium 130 mEq/L (136-145) L 12/23/17 05:52 Potassium 3.3 mEq/L (3.5-5.1) L 12/23/17 05:52 Chloride 103 mEq/L (98-107) 12/23/17 05:52 Carbon Dioxide 22.6 mEq/L (21.0-31.0) 12/23/17 05:52 Anion Gap 7.7 (7.0-16.0) 12/23/17 05:52 BUN 5 mg/dL (7-25) L 12/23/17 05:52 Creatinine 0.5 mg/dL (0.7-1.3) L 12/23/17 05:52 Est GFR ( Amer) > 60.0 ml/min (>90) 12/23/17 05:52 Est GFR (Non-Af Amer) > 60.0 ml/min 12/23/17 05:52 BUN/Creatinine Ratio 10.0 12/23/17 05:52 Glucose 99 mg/dL (70-105) 12/23/17 05:52 Whole Bld Lactic Acid 1.56 mmol/L (0.60-1.99) 12/20/17 17:49 Calcium 7.5 mg/dL (8.6-10.3) L 12/23/17 05:52 Total Bilirubin 1.0 mg/dL (0.3-1.0) 12/20/17 17:16 AST 31 U/L (13-39) 12/20/17 17:16 ALT 12 U/L (7-52) 12/20/17 17:16 Alkaline Phosphatase 64 U/L (34-104) 12/20/17 17:16 Ammonia 53 umol/L (16-53) 12/23/17 05:52 Creatine Kinase 31 U/L (30-223) 12/20/17 17:16 Troponin I 0.02 ng/mL (0.01-0.05) 12/20/17 17:16 B-Natriuretic Peptide 36.5 pg/mL (5.0-100.0) 12/20/17 17:16 Total Protein 5.9 gm/dL (6.0-8.3) L 12/20/17 17:16 Albumin 2.3 gm/dL (4.2-5.5) L 12/20/17 17:16 Globulin 3.6 gm/dL 12/20/17 17:16 Albumin/Globulin Ratio 0.6 (1.0-1.8) L 12/20/17 17:16 Triglycerides 89 mg/dL (<150) 12/20/17 17:16 Cholesterol 109 mg/dL (<200) 12/20/17 17:16 LDL Cholesterol Direct 69 mg/dL (75-193) L 12/20/17 17:16 HDL Cholesterol 11 mg/dL (23-92) L 12/20/17 17:16 Amylase 21 U/L (29-103) L 12/20/17 17:16 Lipase 7 U/L (11-82) L 12/20/17 17:16 Urine Source CLEAN C 12/23/17 06:20 Urine Color YELLOW 12/23/17 06:20 Urine Clarity CLEAR (CLEAR) 12/23/17 06:20 Urine pH 6.0 (4.6 - 8.0) 12/23/17 06:20 Ur Specific [place] 1.010 (1.005-1.030) 12/23/17 06:20 Urine Protein NEGATIVE mg/dL (NEGATIVE) 12/23/17 06:20 Urine Glucose (UA) NEGATIVE mg/dL (NEGATIVE) 12/23/17 06:20 Urine Ketones NEGATIVE mg/dL (NEGATIVE) 12/23/17 06:20 Urine Blood NEGATIVE (NEGATIVE) 12/23/17 06:20 Urine Nitrate NEGATIVE (NEGATIVE) 12/23/17 06:20 Urine Bilirubin NEGATIVE (NEGATIVE) 12/23/17 06:20 Urine Urobilinogen 0.2 E.U./dL (0.2 - 1.0) 12/23/17 06:20 Ur Leukocyte Esterase NEGATIVE (NEGATIVE) 12/23/17 06:20 Urine RBC NONE SEEN /hpf (0-5) 12/23/17 06:20 Urine WBC 0-2 /hpf (0-5) 12/23/17 06:20 Ur Epithelial Cells RARE /lpf (FEW) 12/23/17 06:20 Urine Bacteria NONE SEEN /hpf (NONE SEEN) 12/23/17 06:20 - Physical Exam Vitals and I&O: Vital Signs Temp 97.2 F 12/24/17 07:48 Pulse 71 12/24/17 09:24 Resp 19 12/24/17 08:00 BP 112/68 12/24/17 09:24 Pulse Ox 99 12/24/17 07:48 Intake & Output 12/23/17 12/24/17 12/24/17 18:59 06:59 18:59 Intake Total 200 Output Total 2 Balance 198 Weight (lbs) 85.275 kg Intake: Oral 200 Output: Stool 2 Other: # Voids 2 # Bowel Movements 2 Stool Characteristics Green Soft Soft Mucoid Brown Weight Source Bedscale Active Medications: Current Medications Artificial Tears (Artificial Tears Ophth Soln) 1 drop EACH EYE BID [facility] Stop: 02/19/18 08:59 Last Admin: 12/24/17 09:23 Dose: 1 drop Dicyclomine HCl (Bentyl) 20 mg PO Q12H [facility] Stop: 02/19/18 07:29 Last Admin: 12/24/17 09:24 Dose: 20 mg Diphenhydramine HCl (Benadryl) 25 mg PO Q8H PRN PRN Reason: Itching Stop: 02/19/18 07:18 Last Admin: 12/23/17 21:28 Dose: 25 mg Ferrous Sulfate (Iron) 325 mg PO DAILY [facility] Stop: 02/19/18 08:59 Last Admin: 12/24/17 09:25 Dose: 325 mg Furosemide (Lasix) 40 mg IVP DAILY [facility] Stop: 02/19/18 15:14 Last Admin: 12/24/17 09:22 Dose: 40 mg Hydromorphone HCl (Dilaudid) 1 mg IVP Q4HR PRN PRN Reason: Abdominal Pain Stop: 02/18/18 20:56 Last Admin: 12/24/17 11:48 Dose: 1 mg Hydromorphone HCl (Dilaudid) 2 mg PO Q4HR PRN PRN Reason: Pain (Severe) Stop: 02/19/18 07:18 Last Admin: 12/23/17 18:50 Dose: 2 mg Hydroxyzine HCl (Atarax) 25 mg PO TID [facility]; Protocol Stop: 02/19/18 08:59 Last Admin: 12/24/17 09:24 Dose: 25 mg Lactulose (Cephulac) 60 gm PO QID [facility] Stop: 02/19/18 08:59 Last Admin: 12/24/17 09:25 Dose: Not Given Levocarnitine (Carnitor) 330 mg PO BID [facility] Stop: 02/19/18 08:59 Last Admin: 12/24/17 09:23 Dose: 330 mg Mirtazapine (Remeron) 15 mg PO HS [facility]; Protocol Stop: 02/22/18 20:59 Ondansetron HCl (Zofran) 4 mg IV Q4H PRN PRN Reason: Nausea / Vomiting Stop: 02/18/18 20:57 Last Admin: 12/21/17 22:41 Dose: 4 mg Spironolactone (Aldactone) 100 mg PO DAILY [facility] Stop: 02/19/18 15:14 Last Admin: 12/24/17 09:24 Dose: 100 mg Vitamin D (Vitamin D3) 2,000 iu PO DAILY [facility] Stop: 02/19/18 08:59 Last Admin: 12/24/17 09:24 Dose: 2,000 iu General: Alert, Mild distress HEENT: Atraumatic Cardiovascular: Regular rate Lungs: Clear to auscultation Abdomen: Bowel sounds, Soft, Tender, Hepatomegaly, Distended, no Rebound, no Mass, no Guarding - Procedures Procedures: Procedures Procedure Code Date DRAINAGE OF PERITONEAL CAVITY, PERCUTANEOUS APPROACH [id number] 12/20/17 EXCISION OF DUODENUM, ENDO, DIAGN [id number] 06/06/17 EXCISION OF STOMACH, ENDO, DIAGN [id number] 06/06/17 EXCISION OF TRANSVERSE COLON, ENDO [id number] 06/06/17
[2017-12-25] MEDS: HYDROmorphone 1 mg/mL 1mL Syr IVP PRN ×3 (05:38→17:53)
[2017-12-25] MEDS: Dicyclomine 10 mg Cap PO SCH (06:55)
[2017-12-25] MEDS: Lactulose 10 Gm/15 mL 30mL UDC PO SCH ×3 (08:46→17:54)
[2017-12-25] MEDS: Vitamin D3 2,000 IU SGL PO SCH (08:48)
[2017-12-25] MEDS: Ferrous Sulfate 325 MG TAB PO SCH (08:48)
[2017-12-25] MEDS: Polyvinyl Alcohol Ophth Soln 15 mL Bottle EACH EYE SCH ×2 (09:17→17:54)
--- NOTE | 2017-12-25 14:33 | Pathology Report ---
[id number] Collection date: 12/22/2017 Surgeon: Dr. Alyse Friend Specimen Description: Ascites fluid for cytology Gross Description: Received in formalin is approximately 1900 ml of watery yellowish fluid. A compliance representative dealer portion is submitted for cytology processing. Microscopic Description: Examination of two cytospins and one cell block slide shows mostly inflammatory cells consisting of predominantly lymphocytes admixed with smaller numbers of neutrophils. The background contains scattered mesothelial cells. There is no evidence for atypia. Diagnosis: No cytologic evidence for malignancy, ascites fluid cytology. [facility]# [id number] [facility]
--- NOTE | 2017-12-25 16:03 | General Progress Note ---
Subjective - Review of Systems Events since last encounter: awake in no distress Objective - Results Result Diagrams: 12/23/17 05:52 12/23/17 05:52 Recent Labs: Laboratory Last Values WBC 3.3 Th/cmm (4.8-10.8) L 12/23/17 05:52 RBC 2.87 Mil/cmm (3.80-5.80) L 12/23/17 05:52 Hgb 8.4 gm/dL (12-16) L 12/23/17 05:52 Hct 24.9 % (41.0-60) L 12/23/17 05:52 MCV 86.7 fl (80-99) 12/23/17 05:52 MCH 29.3 pg (27.0-31.0) 12/23/17 05:52 MCHC Differential 33.8 pg (28.0-36.0) 12/23/17 05:52 RDW 14.0 % (11.5-20.0) 12/23/17 05:52 Plt Count 52 Th/cmm (150-400) L 12/23/17 05:52 MPV 7.6 fl 12/23/17 05:52 Neutrophils % 46.4 % (40.0-80.0) 12/23/17 05:52 Lymphocytes % 32.3 % (20.0-50.0) 12/23/17 05:52 Monocytes % 13.3 % (2.0-10.0) H 12/23/17 05:52 Eosinophils % 5.8 % (0.0-5.0) H 12/23/17 05:52 Basophils % 2.2 % (0.0-2.0) H 12/23/17 05:52 PT 15.8 SECONDS (9.5-11.5) H 12/20/17 17:16 INR 1.49 (0.5-1.4) H 12/20/17 17:16 Sodium 130 mEq/L (136-145) L 12/23/17 05:52 Potassium 3.3 mEq/L (3.5-5.1) L 12/23/17 05:52 Chloride 103 mEq/L (98-107) 12/23/17 05:52 Carbon Dioxide 22.6 mEq/L (21.0-31.0) 12/23/17 05:52 Anion Gap 7.7 (7.0-16.0) 12/23/17 05:52 BUN 5 mg/dL (7-25) L 12/23/17 05:52 Creatinine 0.5 mg/dL (0.7-1.3) L 12/23/17 05:52 Est GFR ( Amer) > 60.0 ml/min (>90) 12/23/17 05:52 Est GFR (Non-Af Amer) > 60.0 ml/min 12/23/17 05:52 BUN/Creatinine Ratio 10.0 12/23/17 05:52 Glucose 99 mg/dL (70-105) 12/23/17 05:52 Whole Bld Lactic Acid 1.56 mmol/L (0.60-1.99) 12/20/17 17:49 Calcium 7.5 mg/dL (8.6-10.3) L 12/23/17 05:52 Total Bilirubin 1.0 mg/dL (0.3-1.0) 12/20/17 17:16 AST 31 U/L (13-39) 12/20/17 17:16 ALT 12 U/L (7-52) 12/20/17 17:16 Alkaline Phosphatase 64 U/L (34-104) 12/20/17 17:16 Ammonia 53 umol/L (16-53) 12/23/17 05:52 Creatine Kinase 31 U/L (30-223) 12/20/17 17:16 Troponin I 0.02 ng/mL (0.01-0.05) 12/20/17 17:16 B-Natriuretic Peptide 36.5 pg/mL (5.0-100.0) 12/20/17 17:16 Total Protein 5.9 gm/dL (6.0-8.3) L 12/20/17 17:16 Albumin 2.3 gm/dL (4.2-5.5) L 12/20/17 17:16 Globulin 3.6 gm/dL 12/20/17 17:16 Albumin/Globulin Ratio 0.6 (1.0-1.8) L 12/20/17 17:16 Triglycerides 89 mg/dL (<150) 12/20/17 17:16 Cholesterol 109 mg/dL (<200) 12/20/17 17:16 LDL Cholesterol Direct 69 mg/dL (75-193) L 12/20/17 17:16 HDL Cholesterol 11 mg/dL (23-92) L 12/20/17 17:16 Amylase 21 U/L (29-103) L 12/20/17 17:16 Lipase 7 U/L (11-82) L 12/20/17 17:16 Urine Source CLEAN C 12/23/17 06:20 Urine Color YELLOW 12/23/17 06:20 Urine Clarity CLEAR (CLEAR) 12/23/17 06:20 Urine pH 6.0 (4.6 - 8.0) 12/23/17 06:20 Ur Specific [place] 1.010 (1.005-1.030) 12/23/17 06:20 Urine Protein NEGATIVE mg/dL (NEGATIVE) 12/23/17 06:20 Urine Glucose (UA) NEGATIVE mg/dL (NEGATIVE) 12/23/17 06:20 Urine Ketones NEGATIVE mg/dL (NEGATIVE) 12/23/17 06:20 Urine Blood NEGATIVE (NEGATIVE) 12/23/17 06:20 Urine Nitrate NEGATIVE (NEGATIVE) 12/23/17 06:20 Urine Bilirubin NEGATIVE (NEGATIVE) 12/23/17 06:20 Urine Urobilinogen 0.2 E.U./dL (0.2 - 1.0) 12/23/17 06:20 Ur Leukocyte Esterase NEGATIVE (NEGATIVE) 12/23/17 06:20 Urine RBC NONE SEEN /hpf (0-5) 12/23/17 06:20 Urine WBC 0-2 /hpf (0-5) 12/23/17 06:20 Ur Epithelial Cells RARE /lpf (FEW) 12/23/17 06:20 Urine Bacteria NONE SEEN /hpf (NONE SEEN) 12/23/17 06:20 - Physical Exam Vitals and I&O: Vital Signs Temp 98.2 F 12/25/17 12:05 Pulse 76 12/25/17 12:05 Resp 18 12/25/17 12:05 BP 122/67 12/25/17 12:05 Pulse Ox 97 12/25/17 12:05 Intake & Output 12/24/17 12/25/17 12/25/17 18:59 06:59 18:59 Intake Total 1800 100 Output Total 1180 Balance 620 100 Weight (lbs) 85.275 kg 75.296 kg Intake: Oral 1800 100 Output: Urine 1180 Other: # Voids 2 # Bowel Movements 0 Stool Characteristics Soft Soft Soft Mucoid Mucoid Brown Brown Green Weight Source Bedscale Bedscale Active Medications: Current Medications Artificial Tears (Artificial Tears Ophth Soln) 1 drop EACH EYE BID [facility] Stop: 02/19/18 08:59 Last Admin: 12/25/17 09:17 Dose: 1 drop Dicyclomine HCl (Bentyl) 20 mg PO Q12H [facility] Stop: 02/19/18 07:29 Last Admin: 12/25/17 06:55 Dose: Not Given Diphenhydramine HCl (Benadryl) 25 mg PO Q8H PRN PRN Reason: Itching Stop: 02/19/18 07:18 Last Admin: 12/25/17 02:25 Dose: 25 mg Ferrous Sulfate (Iron) 325 mg PO DAILY [facility] Stop: 02/19/18 08:59 Last Admin: 12/25/17 08:48 Dose: 325 mg Furosemide (Lasix) 40 mg IVP DAILY [facility] Stop: 02/19/18 15:14 Last Admin: 12/25/17 08:47 Dose: 40 mg Hydromorphone HCl (Dilaudid) 2 mg PO Q4HR PRN PRN Reason: Pain (Severe) Stop: 02/19/18 07:18 Last Admin: 12/25/17 13:29 Dose: 2 mg Hydromorphone HCl (Dilaudid) 2 mg IVP Q4HR PRN PRN Reason: Abdominal Pain Stop: 02/18/18 20:56 Last Admin: 12/25/17 11:32 Dose: 2 mg Hydroxyzine HCl (Atarax) 25 mg PO TID [facility]; Protocol Stop: 02/19/18 08:59 Last Admin: 12/25/17 13:29 Dose: 25 mg Lactulose (Cephulac) 60 gm PO QID [facility] Stop: 02/19/18 08:59 Last Admin: 12/25/17 13:30 Dose: Not Given Levocarnitine (Carnitor) 330 mg PO BID [facility] Stop: 02/19/18 08:59 Last Admin: 12/25/17 09:17 Dose: 330 mg Mirtazapine (Remeron) 15 mg PO HS [facility]; Protocol Stop: 02/22/18 20:59 Last Admin: 12/24/17 20:13 Dose: 15 mg Ondansetron HCl (Zofran) 4 mg IV Q4H PRN PRN Reason: Nausea / Vomiting Stop: 02/18/18 20:57 Last Admin: 12/25/17 11:32 Dose: 4 mg Spironolactone (Aldactone) 100 mg PO DAILY [facility] Stop: 02/19/18 15:14 Last Admin: 12/25/17 08:47 Dose: 100 mg Vitamin D (Vitamin D3) 2,000 iu PO DAILY [facility] Stop: 02/19/18 08:59 Last Admin: 12/25/17 08:48 Dose: 2,000 iu General: Alert, Mild distress HEENT: Atraumatic Cardiovascular: Regular rate Lungs: Clear to auscultation Abdomen: Bowel sounds, Soft, Tender, Hepatomegaly, Distended, no Rebound, no Mass, no Guarding - Procedures Procedures: Procedures Procedure Code Date DRAINAGE OF PERITONEAL CAVITY, PERCUTANEOUS APPROACH [id number] 12/20/17 EXCISION OF DUODENUM, ENDO, DIAGN [id number] 06/06/17 EXCISION OF STOMACH, ENDO, DIAGN [id number] 06/06/17 EXCISION OF TRANSVERSE COLON, ENDO [id number] 06/06/17 Nutritional Asmnt/Malnutr-PDOC - Dietary Evaluation Malnutrition Findings (Please click <Entered> for more info): Nutritional Asmnt/Malnutrition Start: 12/25/17 14: 16 Text: Status: Complete Freq: Protocol: Document 12/25/17 14:16 LCHENG (Rec: 12/25/17 14:55 [id number]) Nutritional Asmnt/Malnutrition Patient General Information Nutritional Screening Moderate Risk Diagnosis abdominal pain Pertinent Medical Hx/Surgical Hx bipolar disorder, asthma, COPD , hyperlipidemia, PUD, GERD, arthritis Subjective Information Pt seen lying in bed at time of visit, awake and alert. Pt reported N/V after eating, saying "my body rejected food" . Pt only want soup for dinner , did not eat breakfast this morning. Po consumed 10% of lunch and 50% of dinner yesterday 12/24. Current Diet Order/ Nutrition Support [facility] Pertinent Medications iron, lasix, remeron, zofran, vit D3 Pertinent Labs 12/23 Na 130, K 3.3, BUN 5, Cr 0.5, Ca 7.5 Nutritional Hx/Data Height 1.85 m Height (Calculated Centimeters) 185.4 Current Weight (lbs) 75.296 kg Weight (Calculated Kilograms) 75.3 Weight (Calculated Grams) 24183.3 [place] Body Weight 184 Body Mass Index (BMI) 21.9 Weight Status Approriate GI Symptoms GI Symptoms None Last BM 12/24 Difficult in: None Skin Integrity/Comment: Very dry feet/toes with dry scab, noted. Swelling on both feet and ankle. Current %PO Poor (25-49%) Estimated Nutritional Goals BEE in Kcals: Using Current wt Calories/Kcals/Kg 25-30 Kcals Calculated 5390-5765 Protein: Using Current wt Protein g/k.8 Protein Calculated 60 Fluid: ml 1875-2250ml (1ml/kcal) Nutritional Problem 1. Problem Problem inadequate food intake Etiology N/V after eating Signs/Symptoms: PO intake < 50%, pt only taking soup Malnutrition Alert Muscle Mass (Non-Severe) Mild Depletion Is there a minimum of two criteria No selected? Query Text:Check all the applicable criteria. A minimum of two criteria are recommended for diagnosis of either severe or non-severe malnutrition. Malnutrition Related to Morbid Obesity Malnutrition related to morbid obesity No Intervention/Recommendation Comments 1. Continue with [facility] soft [facility] diet as ordered. Offered pt nutrition supplements, pt can request it as needed. Pt verbalized understanding. Encouraged fluid intake. 2. Monitor PO intake, wt, labs and skin integrity 3. F/U as high risk in 2-3 days, 12/26-12/27 Expected Outcomes/Goals Expected Outcomes/Goals 1. PO intake to meet at least 75% of nutritional needs. 2. Wt stability, GI function to improve, skin to remain intact, labs to approach WNL.
--- NOTE | 2017-12-25 18:12 | GI Progress Note ---
Subjective - Review of Systems Service Date: 12/25/17 Subjective: GI NOTE EVENTS NOTED. SOME ORAL DIETARY INTAKE. Objective - Results Result Diagrams: 12/23/17 05:52 12/23/17 05:52 Recent Labs: Laboratory Last Values WBC 3.3 Th/cmm (4.8-10.8) L 12/23/17 05:52 RBC 2.87 Mil/cmm (3.80-5.80) L 12/23/17 05:52 Hgb 8.4 gm/dL (12-16) L 12/23/17 05:52 Hct 24.9 % (41.0-60) L 12/23/17 05:52 MCV 86.7 fl (80-99) 12/23/17 05:52 MCH 29.3 pg (27.0-31.0) 12/23/17 05:52 MCHC Differential 33.8 pg (28.0-36.0) 12/23/17 05:52 RDW 14.0 % (11.5-20.0) 12/23/17 05:52 Plt Count 52 Th/cmm (150-400) L 12/23/17 05:52 MPV 7.6 fl 12/23/17 05:52 Neutrophils % 46.4 % (40.0-80.0) 12/23/17 05:52 Lymphocytes % 32.3 % (20.0-50.0) 12/23/17 05:52 Monocytes % 13.3 % (2.0-10.0) H 12/23/17 05:52 Eosinophils % 5.8 % (0.0-5.0) H 12/23/17 05:52 Basophils % 2.2 % (0.0-2.0) H 12/23/17 05:52 PT 15.8 SECONDS (9.5-11.5) H 12/20/17 17:16 INR 1.49 (0.5-1.4) H 12/20/17 17:16 Sodium 130 mEq/L (136-145) L 12/23/17 05:52 Potassium 3.3 mEq/L (3.5-5.1) L 12/23/17 05:52 Chloride 103 mEq/L (98-107) 12/23/17 05:52 Carbon Dioxide 22.6 mEq/L (21.0-31.0) 12/23/17 05:52 Anion Gap 7.7 (7.0-16.0) 12/23/17 05:52 BUN 5 mg/dL (7-25) L 12/23/17 05:52 Creatinine 0.5 mg/dL (0.7-1.3) L 12/23/17 05:52 Est GFR ( Amer) > 60.0 ml/min (>90) 12/23/17 05:52 Est GFR (Non-Af Amer) > 60.0 ml/min 12/23/17 05:52 BUN/Creatinine Ratio 10.0 12/23/17 05:52 Glucose 99 mg/dL (70-105) 12/23/17 05:52 Whole Bld Lactic Acid 1.56 mmol/L (0.60-1.99) 12/20/17 17:49 Calcium 7.5 mg/dL (8.6-10.3) L 12/23/17 05:52 Total Bilirubin 1.0 mg/dL (0.3-1.0) 12/20/17 17:16 AST 31 U/L (13-39) 12/20/17 17:16 ALT 12 U/L (7-52) 12/20/17 17:16 Alkaline Phosphatase 64 U/L (34-104) 12/20/17 17:16 Ammonia 53 umol/L (16-53) 12/23/17 05:52 Creatine Kinase 31 U/L (30-223) 12/20/17 17:16 Troponin I 0.02 ng/mL (0.01-0.05) 12/20/17 17:16 B-Natriuretic Peptide 36.5 pg/mL (5.0-100.0) 12/20/17 17:16 Total Protein 5.9 gm/dL (6.0-8.3) L 12/20/17 17:16 Albumin 2.3 gm/dL (4.2-5.5) L 12/20/17 17:16 Globulin 3.6 gm/dL 12/20/17 17:16 Albumin/Globulin Ratio 0.6 (1.0-1.8) L 12/20/17 17:16 Triglycerides 89 mg/dL (<150) 12/20/17 17:16 Cholesterol 109 mg/dL (<200) 12/20/17 17:16 LDL Cholesterol Direct 69 mg/dL (75-193) L 12/20/17 17:16 HDL Cholesterol 11 mg/dL (23-92) L 12/20/17 17:16 Amylase 21 U/L (29-103) L 12/20/17 17:16 Lipase 7 U/L (11-82) L 12/20/17 17:16 Urine Source CLEAN C 12/23/17 06:20 Urine Color YELLOW 12/23/17 06:20 Urine Clarity CLEAR (CLEAR) 12/23/17 06:20 Urine pH 6.0 (4.6 - 8.0) 12/23/17 06:20 Ur Specific [place] 1.010 (1.005-1.030) 12/23/17 06:20 Urine Protein NEGATIVE mg/dL (NEGATIVE) 12/23/17 06:20 Urine Glucose (UA) NEGATIVE mg/dL (NEGATIVE) 12/23/17 06:20 Urine Ketones NEGATIVE mg/dL (NEGATIVE) 12/23/17 06:20 Urine Blood NEGATIVE (NEGATIVE) 12/23/17 06:20 Urine Nitrate NEGATIVE (NEGATIVE) 12/23/17 06:20 Urine Bilirubin NEGATIVE (NEGATIVE) 12/23/17 06:20 Urine Urobilinogen 0.2 E.U./dL (0.2 - 1.0) 12/23/17 06:20 Ur Leukocyte Esterase NEGATIVE (NEGATIVE) 12/23/17 06:20 Urine RBC NONE SEEN /hpf (0-5) 12/23/17 06:20 Urine WBC 0-2 /hpf (0-5) 12/23/17 06:20 Ur Epithelial Cells RARE /lpf (FEW) 12/23/17 06:20 Urine Bacteria NONE SEEN /hpf (NONE SEEN) 12/23/17 06:20 - Physical Exam Vitals and I&O: Vital Signs Temp 98.2 F 12/25/17 17:27 Pulse 76 12/25/17 17:27 Resp 18 12/25/17 17:27 BP 122/67 12/25/17 17:27 Pulse Ox 97 12/25/17 17:27 Intake & Output 12/24/17 12/25/17 12/25/17 18:59 06:59 18:59 Intake Total 1800 100 Output Total 1180 Balance 620 100 Weight (lbs) 85.275 kg 75.296 kg Intake: Oral 1800 100 Output: Urine 1180 Other: # Voids 2 # Bowel Movements 0 Stool Characteristics Soft Soft Soft Mucoid Mucoid Brown Brown Green Weight Source Bedscale Bedscale Active Medications: Current Medications Artificial Tears (Artificial Tears Ophth Soln) 1 drop EACH EYE BID [facility] Stop: 02/19/18 08:59 Last Admin: 12/25/17 17:54 Dose: Not Given Dicyclomine HCl (Bentyl) 20 mg PO Q12H [facility] Stop: 02/19/18 07:29 Last Admin: 12/25/17 06:55 Dose: Not Given Diphenhydramine HCl (Benadryl) 25 mg PO Q8H PRN PRN Reason: Itching Stop: 02/19/18 07:18 Last Admin: 12/25/17 02:25 Dose: 25 mg Ferrous Sulfate (Iron) 325 mg PO DAILY [facility] Stop: 02/19/18 08:59 Last Admin: 12/25/17 08:48 Dose: 325 mg Furosemide (Lasix) 40 mg IVP DAILY [facility] Stop: 02/19/18 15:14 Last Admin: 12/25/17 08:47 Dose: 40 mg Hydromorphone HCl (Dilaudid) 2 mg PO Q4HR PRN PRN Reason: Pain (Severe) Stop: 02/19/18 07:18 Last Admin: 12/25/17 13:29 Dose: 2 mg Hydromorphone HCl (Dilaudid) 2 mg IVP Q4HR PRN PRN Reason: Abdominal Pain Stop: 02/18/18 20:56 Last Admin: 12/25/17 17:53 Dose: 2 mg Hydroxyzine HCl (Atarax) 25 mg PO TID [facility]; Protocol Stop: 02/19/18 08:59 Last Admin: 12/25/17 13:29 Dose: 25 mg Lactulose (Cephulac) 60 gm PO QID [facility] Stop: 02/19/18 08:59 Last Admin: 12/25/17 17:54 Dose: Not Given Levocarnitine (Carnitor) 330 mg PO BID [facility] Stop: 02/19/18 08:59 Last Admin: 12/25/17 17:54 Dose: Not Given Mirtazapine (Remeron) 15 mg PO HS [facility]; Protocol Stop: 02/22/18 20:59 Last Admin: 12/24/17 20:13 Dose: 15 mg Ondansetron HCl (Zofran) 4 mg IV Q4H PRN PRN Reason: Nausea / Vomiting Stop: 02/18/18 20:57 Last Admin: 12/25/17 11:32 Dose: 4 mg Spironolactone (Aldactone) 100 mg PO DAILY [facility] Stop: 02/19/18 15:14 Last Admin: 12/25/17 08:47 Dose: 100 mg Vitamin D (Vitamin D3) 2,000 iu PO DAILY [facility] Stop: 02/19/18 08:59 Last Admin: 12/25/17 08:48 Dose: 2,000 iu General: Alert, Mild distress HEENT: Atraumatic Cardiovascular: Regular rate Lungs: Clear to auscultation Abdomen: Bowel sounds, Soft, Tender, Distended (MILD ASCITES), no Rebound, no Mass, no Guarding - Procedures Procedures: Procedures Procedure Code Date DRAINAGE OF PERITONEAL CAVITY, PERCUTANEOUS APPROACH [id number] 12/20/17 EXCISION OF DUODENUM, ENDO, DIAGN [id number] 06/06/17 EXCISION OF STOMACH, ENDO, DIAGN [id number] 06/06/17 EXCISION OF TRANSVERSE COLON, ENDO [id number] 06/06/17 Assessment/Plan - Assessment Assessment: Assessment: 1. Decompensated cirrhosis 2. Ascites 3. Abdominal pain, 4. Anemia - Plan 1. Decompensated cirrhosis Paracentesis PRN. He had this done on this admission Diuresis US and AFP every 6 months 2. Ascites S/P paracentesis Diuresis. 3. Abdominal pain, Chronic Extensive negative W/U 4. Anemia Stable S/P EGD/Colon this year 5. Anorexia - G tube in this pt is high risk for leak and persistant gastrocutaneous fistula malfunction given his ascites. Would advise against this unless absolutely necessary - trial of remeron 15mg hs - encourage po intake
== END 2017-12-25 19:50 | DRG 432 ==
LOC: ER 16:51 → TELE 19:20
PROVIDERS: ADMIT Internal Medicine; ATTEND Internal Medicine
PROC: 0W9G3ZZ Drainage of Peritoneal Cavity, Percutaneous Approach (ICD-10-PCS; principal; 2017-12-22)
DX: K74.60 Unspecified cirrhosis of liver (principal); E43 Unspecified severe protein-calorie malnutrition; E87.1 Hypo-osmolality and hyponatremia; R18.8 Other ascites; K52.9 Noninfective gastroenteritis and colitis, unspecified; Z86.19 Personal history of other infectious and parasitic diseases; M19.90 Unspecified osteoarthritis, unspecified site; J44.9 Chronic obstructive pulmonary disease, unspecified; D64.9 Anemia, unspecified; Z68.21 Body mass index [BMI] 21.0-21.9, adult; I10 Essential (primary) hypertension; Z82.49 Family history of ischemic heart disease and other diseases of the circulatory system; E87.6 Hypokalemia; B19.20 Unspecified viral hepatitis C without hepatic coma; K21.9 Gastro-esophageal reflux disease without esophagitis; F31.9 Bipolar disorder, unspecified
CPT/HCPCS: 36415-UA; 71045-TC; 76942-TC; 80048-TC; 80053-TC; 80061-TC; 81001-TC; 82140-TC; 82150-TC; 82550-TC; 83605; 83690-TC; 83880-TC; 84484-TC; 85025-TC; 85610-TC; 93005; 94760; 96374; 96375; J0696; J1170; J1885; J1940; J2405; J7030